=== PATIENT | female | born 1960 | race Caucasian/White ===

== ENCOUNTER 2020-05-18 17:02 | Emergency (ER) | payer OTHER, SELFPAY ==
[2020-05-18 17:03] VITALS: BP 168/134; PULSE 67; RESP 15; TEMP 36.7; O2SAT 97; BMI 38.5
--- NOTE | 2020-05-18 17:22 | EKG12_ITS ---
Test Reason : CP Blood Pressure : / mmHG Vent. Rate : 058 BPM Atrial Rate : 058 BPM P-R Int : 152 ms QRS Dur : 090 ms QT Int : 422 ms P-R-T Axes : 046 036 003 degrees QTc Int : 414 ms Sinus bradycardia Otherwise normal ECG Confirmed by GÓMEZ ZEE, MARLON ([id number]), senior editor ASHER OLSEN ([id number]) on 05/22/2020 9:35:49 AM Referred By: ARSH Confirmed By:MARLON MAGAÑA MD
[2020-05-18 17:26] VITALS: O2SAT 98
[2020-05-18] MEDS: Aspirin 81 MG TAB.CHEW 243 MG PO (17:32)
--- NOTE | 2020-05-18 17:39 | RAD_ITS ---
STUDY: X-RAY CHEST REASON FOR EXAM: Female, 59 years old. chest pain TECHNIQUE: AP COMPARISON: 06/18/2014 FINDINGS: EKG leads project over the chest. The lungs are clear and expanded. There is no demonstrated pleural abnormality. Normal size heart. Normal mediastinum and juan [place]. Normal visualized pulmonary arteries. Normal visualized aortic arch and descending thoracic aorta. Normal visualized thoracic spine. Normal visualized ribs, clavicles, and shoulders. There is no demonstrated abnormality of the visualized soft tissue structures of the upper abdomen. RAD/Chest 1 View (Portable) IMPRESSION: Nonacute portable x-ray examination of the chest. Electronically Signed: Mason Haji MD (Brooks) at 18:06 EST , Service support ,
[2020-05-18 17:47] LABS: Absolute Lymphocyte Count 2.49 X10^3/uL (0.83-4.51); Basophil# 0.06 X10^3/uL; Basophil% 0.6 % (0-1); Eosinophils% 1.9 % (0-5); Hematocrit 44.6 % (37-47); Hemoglobin 14.6 g/dL (12.0-15.0); Lymphocyte # 2.49 X10^3/ul (4.0); Lymphocyte % 23.4 % (19-41); Mean Corp Hgb Conc 32.7 g/dL (32-36); Mean Corpuscular Volume 91.6 fL (81-99); Mean Platelet Vol. 11.8 fl (6.2-12.0); Monocyte# 0.87 X10^3/uL; Monocyte% 8.2 % (0-10); NRBC Flagged by Analyzer 0 % (0-5); Neutrophil # 6.97 X10^3/uL (2.7-7.7); Neutrophil % 65.3 % (47-70); Platelet Count 270 K/mm3 (150-450); RBC Distribution Width CV 14.6 % (11.6-14.6); RBC Distribution Width SD 48.9 fl (35.1-43.9); Red Blood Count 4.87 M/mm3 (4.2-5.4); White Blood Count 10.7 K/mm3 (4.4-11.0)
[2020-05-18 17:52] VITALS: BP 157/75; PULSE 56; RESP 17; O2SAT 97
--- NOTE | 2020-05-18 18:15 | ED.DCSUM_ITS ---
History of Present Illness Chief Complaint: Chest Pain Informant: Patient Onset: Today Current Severity: Moderate Maximum Severity: Severe Narrative: Patient presents secondary to chest pain. Patient states that she and her recently moved in with her daughter. She heard her and daughter arguing in the basement she went down to see what was going on. He continued to argue and she became upset. She then developed chest pain and difficulty breathing. Patient has been off work recently secondary to elevated blood pressure with multiple medication adjustments to try to get better control. Patient does have cardiac history and has 2 cardiac stents. - Past Medical History (1) Anxiety disorder Status: Chronic (2) Benign essential hypertension Status: Chronic (3) CAD, History of stents Status: Chronic Comment: LAD stent (4) Depressive disorder Status: Chronic (5) Hyperlipidemia Status: Chronic (6) Type 2 diabetes mellitus Status: Chronic Past Medical History - Allergies and Home Meds Allergies/Adverse Reactions: Allergies codeine phosphate [From Tylenol-Codeine #3] Allergy (Verified 05/18/20 17:06) Other Penicillins Allergy (Verified 05/18/20 17:06) Hives oxycodone HCl [From Percocet] Adverse Reaction (Verified 05/18/20 17:06) Upset Stomach Primary Care Physician: Jan Wang MD [Primary Care Provider] - Prior records reviewed: Yes Surgical History: angioplasty Lives: With Family Smoking Status: Current some day smoker - Family History Maternal Family History: Reports: Heart Disease Review of Systems General: Denies: Chills, Fever Eyes: Denies: Visual changes - bilaterally ENT: Denies: Bilateral ear pain Cardiovascular: Reports: Chest pain Respiratory: Reports: Dyspnea Gastrointestinal: Denies: Abdominal pain, Nausea, Vomiting, Diarrhea Genitourinary: Denies: Dysuria Musculoskeletal: Denies: Swelling, Extremity Pain Skin: Denies: Rash Neurological: Denies: Headache Hematologic: Denies: Easy bruising, Easy bleeding Allergy: Denies: Uticaria Physical Exam Vital Signs/Narrative: Vital Signs Temp Pulse Resp BP Pulse Ox 05/18/20 17:52 56 L 17 157/75 H 97 05/18/20 17:26 98 05/18/20 17:03 98.1 F 67 15 168/134 H 97 Inital Vital Signs reviewed: Yes General: Well nourished, Well developed Head: Normocephalic ENT: Moist mucous membranes Neck: Supple Cardiovascular: Regular rate, Regular rhythm Respiratory: No distress, CTA bilaterally, Chest tenderness - Reproducible chest wall tenderness over the lower sternum. Abdomen: Soft, Nontender Back: Nontender Extremities: Nontender Skin: Normal color, No rash Neurological: Alert, Oriented x3 Psychological: - - Anxious Diagnostic/Tx/Re-eval Chest X-Ray - ED: 1 View, Read by ED Physician, Normal, Heart, Lungs, Mediastinum Impressions Chest X-Ray 05/18/20 17:39 IMPRESSION: Nonacute portable x-ray examination of the chest. Electronically Signed: Mason Haji MD (Brooks) at 18:06 EST , Service support , 05/18/20 17:39 Chest 1 View (Portable) [RAD] Stat Laboratory Results 05/18/20 05/18/20 05/18/20 17:35 17:35 20:00 WBC 10.7 RBC 4.87 Hgb 14.6 Hct 44.6 MCV 91.6 MCH 30.0 MCHC 32.7 RDW Std Deviation 48.9 H RDW Coeff of Norma 14.6 Plt Count 270 MPV 11.8 Immature Gran % (Auto) 0.600 Neut % (Auto) 65.3 Lymph % (Auto) 23.4 [place] % (Auto) 8.2 Eos % (Auto) 1.9 Baso % (Auto) 0.6 Absolute Neuts (auto) 7.0 Absolute Lymphs (auto) 2.49 Nucleated RBC % 0 Sodium 137 Potassium 4.9 Chloride 101 Carbon Dioxide 28.0 Anion Gap 8 BUN 17 Creatinine 0.72 Estim Creat Clear Calc 71.31 Est GFR (MDRD) Af Amer 108 Est GFR (MDRD) Non-Af 89 BUN/Creatinine Ratio 23.7 H Glucose 279 H Calcium 9.1 Troponin I < 0.015 < 0.015 - EKG Initial EKG Interpretation: Sinus Bradycardia - Sinus bradycardia 58 bpm. No acute ischemia. Follow-up EKG Interpretation: Sinus Bradycardia - Sinus bradycardia [address] change. - Medical Decision Making Patient was given aspirin on arrival. She takes baby aspirin daily and will therefore was given 243 mg. Chest x-ray is unremarkable per my interpretation. EKG reveals no acute ischemia. Blood work is unremarkable including troponin of less than 0.015. On repeat evaluation patient is resting comfortably. Because of the patient's significant cardiac history we did choose to do a repeat troponin and EKG. This was performed and also remains negative. At this time patient be discharged home. ED Disposition - Plan for ED Patient: Disposition: Home or Assisted Living Diagnosis: Chest pain, Anxiety Instructions: ED Anxiety Reaction, ED Chest Pain, Noncardiac Referrals: Jan Wang MD [Primary Care Provider] - As Needed
[2020-05-18 18:17] LABS: Anion Gap 8 (5-15); BUN 17 mg/dL (7-18); BUN/Creat Ratio 23.7 RATIO (10-20); Calcium,Total 9.1 mg/dL (8.5-10.1); Chloride 101 mmol/L (98-107); Creatinine, Serum 0.72 mg/dL (0.55-1.02); EST Glomerular Filtration Rate 89 mL/min (>60); Est Glom Filt Rate - Afr Amer 108 mL/min (>60); Estimated Creatinine Clearance 71.31 ml/min; Glucose 279 mg/dL (74-106); Potassium 4.9 mmol/L (3.5-5.1); Sodium Level 137 mmol/L (136-145)
[2020-05-18 19:47] VITALS: BP 167/84; PULSE 56; RESP 16; O2SAT 98
--- NOTE | 2020-05-18 20:00 | EKG12_ITS ---
Test Reason : REPEAT Blood Pressure : / mmHG Vent. Rate : 056 BPM Atrial Rate : 056 BPM P-R Int : 142 ms QRS Dur : 088 ms QT Int : 446 ms P-R-T Axes : 051 054 006 degrees QTc Int : 430 ms Sinus bradycardia Nonspecific T wave abnormality Abnormal ECG Confirmed by GÓMEZ ZEE, MARLON ([id number]), index editor ASHER OLSEN ([id number]) on 05/22/2020 9:35:37 AM Referred By: ARSH Confirmed By:MARLON MAGAÑA MD
[2020-05-18 21:03] VITALS: BP 140/63; PULSE 62; RESP 16; O2SAT 96
== END 2020-05-18 21:07 | disposition home or self-care (01) ==
PROVIDERS: Emergency Provider Emergency Medicine; PCP Family Medicine
DX: R07.9 Chest pain, unspecified (principal); F41.9 Anxiety disorder, unspecified; E11.9 Type 2 diabetes mellitus without complications; E78.5 Hyperlipidemia, unspecified; I10 Essential (primary) hypertension; I25.10 Atherosclerotic heart disease of native coronary artery without angina pectoris; F32.9 Major depressive disorder, single episode, unspecified; Z95.5 Presence of coronary angioplasty implant and graft; Z79.82 Long term (current) use of aspirin; Z79.84 Long term (current) use of oral hypoglycemic drugs; Z79.899 Other long term (current) drug therapy; F17.200 Nicotine dependence, unspecified, uncomplicated
CPT/HCPCS: 71045; 80048; 84484; 85025; 93005; 99285; A4216

== ENCOUNTER 2020-08-20 16:14 | Emergency (ER) | payer OTHER, SELFPAY ==
[2020-08-20 16:15] VITALS: BP 149/74; PULSE 68; RESP 18; TEMP 36.1; O2SAT 98; BMI 41.6
--- NOTE | 2020-08-20 16:29 | EKG12_ITS ---
Test Reason : CHEST DISCOMFORT Blood Pressure : / mmHG Vent. Rate : 064 BPM Atrial Rate : 064 BPM P-R Int : 156 ms QRS Dur : 092 ms QT Int : 424 ms P-R-T Axes : 058 042 006 degrees QTc Int : 437 ms Normal sinus rhythm Normal ECG Confirmed by GÓMEZ ZEE, MARLON ([id number]), general expeditor ASHER OLSEN ([id number]) on 08/22/2020 10:06:45 AM Referred By: ANNE Confirmed By:MARLON MAGAÑA MD
--- NOTE | 2020-08-20 16:35 | EX.ED.VIS.PS ---
HPI HPI - Psych History of Present Illness Chief Complaint: Anxiety Informant: patient Narrative Narrative: Patient says that she has a lot of anxiety and had a panic attack today. Her daughter is in the course of being evicted from their house and was giving her a lot of stress. She became anxious and had to leave the house. She states that she was having lightheadedness, chest discomfort. Now that she is here she is feeling better. She does have a history of anxiety and is on multiple medications for this. She denies any suicidal ideation. PFSH PFSH Home Medications nitroglycerin 0.4 mg SUBLINGUAL Q5M PRN 01/25/13 [History Last Taken Unknown] aspirin 81 mg PO DAILY@0800 #90 tablet 06/18/14 [Rx Last Taken Unknown] atenolol 25 mg PO DAILY #30 tablet 06/18/14 [Rx Last Taken Unknown] citalopram 1.5 tab PO DAILY 06/18/14 [History Last Taken Unknown] lisinopril 5 mg PO DAILY #30 tablet 06/18/14 [Rx Last Taken Unknown] lorazepam 1 mg PO BID PRN PRN 06/18/14 [History Last Taken Unknown] metformin 1,000 mg PO BIDCM #60 tablet 06/18/14 [Rx Last Taken Unknown] multivitamin with folic acid [Thera] 1 tab PO DAILY 06/18/14 [History Last Taken Unknown] simvastatin 40 mg PO QHS #30 tablet 06/18/14 [Rx Last Taken Unknown] Allergy/AdvReac Type Severity Reaction Status Date / Time codeine phosphate Allergy Other Verified 08/20/20 16:15 [From Tylenol-Codeine #3] Penicillins Allergy Hives Verified 08/20/20 16:15 oxycodone HCl [From Percocet] AdvReac Upset Verified 08/20/20 16:15 Stomach Social History Smoking Status: Current some day smoker ROS ROS ED Constitutional Constitutional ED: Denies chills or fever(s) Eyes Eyes: Denies blurry vision, change in vision or diplopia ENT ENT ED: Denies ear pain, rhinorrhea or sore throat Cardiovascular Cardiovascular: Denies chest pain or palpitations Respiratory/Chest Respiratory/Chest: Denies cough, dyspnea or sputum Gastrointestinal Gastrointestinal: Denies abdominal pain, diarrhea, nausea or vomiting Genitourinary Genitourinary ED: Denies dysuria, hematuria or urinary frequency Musculoskeletal Musculoskeletal: Denies back pain or neck pain Integumentary Denies change in pigmentation or rash Neurologic Neurologic: Denies headache(s), numbness or weakness Psychiatric Psychiatric: Reports anxiety Endocrine Endocrinology: Denies polydipsia or polyuria EXAM Physical Exam Const Vital Signs: 08/20/20 16:15 Temperature 96.9 F L Temperature Source Temporal Pulse Rate 68 Respiratory Rate 18 Blood Pressure 149/74 H Blood Pressure Mean 99 Pulse Ox 98 Oxygen Delivery Method Room Air Positive well nourished and well developed General Appearance ED: well developed and NAD HEENT Reports moist mucous membranes normocephalic and atraumatic; Negative for tenderness Eyes PERRL and EOMs intact bilaterally Neck supple and no JVD Chest Wall Chest: Negative for tenderness Resp normal respiratory effort and clear to auscultation bilaterally Effort and Inspection: Negative for respiratory distress Cardio regular rate, regular rhythm and no murmurs Rate: regular rate Rhythm: regular rhythm GI soft to palpation, non-tender and non-distended Palpation: soft Back/Spine no CVA tenderness and no thoracic nor lumbar tenderness Cervical Spine: Negative for cervical spine tenderness Extremity normal to inspection and full ROM General Extremety ED: Negative for tenderness Neuro oriented x3, CN's II-XII intact bilaterally and no sensory deficits noted Sensorium / Orientation: awake and alert Motor Exam: strength 5/5 throughout Psych Psych Narrative: The patient is calm. She is feeling better. She is mildly anxious but is not having any panic symptoms. Skin no rashes or lesions noted MDM MDM MDM Narrative Medical decision making narrative: Patient was given 1 dose of Ativan here. An EKG was performed and it does not show anything acute. Upon reevaluation the patient felt improved. I think this was all anxiety. She will continue her anxiety meds and will follow up with her doctor EKG Initial EKG: Comments: Normal sinus rhythm with rate of 64. No acute ischemia noted. QTc 437, [place] interval 156 Discharge Plan Triage Chief Complaint: Anxiety ED Provider: Christiano Forbes Dx/Rx/DC Orders Clinical Impression: Anxiety disorder Instructions: ED Anxiety Reaction Prescriptions: No Action nitroglycerin 0.4 MG tablet 0.4 mg sublingual Q5M PRN (Reason: Chest Pain) RF: 0 citalopram 40 MG tablet 1.5 tab PO DAILY RF: 0 lorazepam 1 MG tablet 1 mg PO BID PRN PRN (Reason: Anxiety) RF: 0 multivitamin with folic acid [Thera] 1 TABLET tablet 1 tab PO DAILY RF: 0 atenolol 25 MG tablet 25 mg PO DAILY Qty: 30 RF: 0 aspirin 81 MG tablet 81 mg PO DAILY@0800 Qty: 90 RF: 0 metformin 1,000 MG tablet 1,000 mg PO BIDCM Qty: 60 RF: 0 lisinopril 5 MG tablet 5 mg PO DAILY Qty: 30 RF: 0 simvastatin 40 MG tablet 40 mg PO QHS Qty: 30 RF: 0 Primary Care Provider: Jan Wang Referrals: Jan Wang MD [Primary Care Provider] - Disposition Disposition: Home, self care
[2020-08-20] MEDS: LORazepam 1 MG Tablet PO (17:19)
== END 2020-08-20 17:23 | disposition home or self-care (01) ==
PROVIDERS: Emergency Provider Emergency Medicine; PCP Family Medicine
DX: F41.9 Anxiety disorder, unspecified (principal); F17.200 Nicotine dependence, unspecified, uncomplicated
CPT/HCPCS: 93005; 99281; 99283

== ENCOUNTER → 2020-12-13 17:38 | Outpatient (CLI) | payer OTHER, SELFPAY ==
--- NOTE | 2020-12-13 17:48 | MRI_ITS ---
STUDY: MRI BRAIN WITH AND WITHOUT CONTRAST (ATTENTION INTERNAL AUDITORY CANALS - I.A.C.''s) REASON FOR EXAM: Female, 60 years old. ATAXIA, VERTIGO, OCULAR MIGRAINES TECHNIQUE: Standardized multiplanar fat and water weighted pulse sequences were obtained. IV 19cc dotarem was administered for the contrast portion of the examination. COMPARISON: None. FINDINGS: Normal bilateral temporal bones. Normal bilateral internal auditory canals. There is no demonstrated intracanalicular or cisternal vestibular schwannoma (acoustic neuroma). There is no enhancement of the bilateral VIIth or VIIIth cranial nerves. Normal bilateral cochlea, vestibules and semicircular canals. Normal size of the ventricles and extra-axial spaces for the patient''s age. Normal white matter tracts of the supratentorial brain. Normal bilateral basal ganglia. Normal thalami. Normal flow voids within the major intracranial circulation suggesting patency by spin echo criteria. Normal venous enhancement. There is no enhancing intra-axial or extra-axial abnormality. There is no extra-axial fluid accumulation. Empty sella deformity of uncertain significance. Normal, infundibular stalk, optic chiasm and hypothalamus. Normal tectal plate and pineal gland. Normal midbrain, krysta and medulla. Normal cerebellum. Normal basal cisterns. No demonstrated orbital abnormality, within the constraints of a routine brain study. Normal visualized paranasal sinuses. Normal calvarium and skull base. Normal visualized soft tissue structures. Normal visualized upper cervical spine. MRI/Brain W/WO Contrast IMPRESSION: Empty sella deformity of uncertain clinical significance although may be seen with pseudotumor cerebri. Clinical correlation is recommended in this regard. Otherwise normal enhanced and unenhanced MRI of the brain. No evidence for significant periventricular white matter ischemic changes or acute infarct.. No evidence for acoustic or vestibular schwannoma Electronically Signed: Devyn Ashraf MD at 20:34 EDT , Service support ,
[2020-12-13 18:35] LABS: CREATININE FINGERSTICK 0.6 mg/dL (0.55-1.02); EGFR FINGERSTICK > 60.0000 mL/min (>60)
== END ==
LOC: MRI 17:42
PROVIDERS: PCP Family Medicine; Referring Provider Otolaryngology Otolaryngology/Facial Plastic Surgery; Visit Provider Otolaryngology Otolaryngology/Facial Plastic Surgery
DX: R27.0 Ataxia, unspecified (principal)
CPT/HCPCS: 70553; A9575

== ENCOUNTER 2021-03-19 11:13 | Outpatient (CLI) | payer OTHER, SELFPAY ==
[2021-03-19] MEDS: 0.9% Saline Lock 10 ML Syringe IV (11:34)
[2021-03-19 11:36] VITALS: BP 129/55; PULSE 54; RESP 16; TEMP 36.6; O2SAT 97; BMI 37.8
[2021-03-19 12:37] VITALS: BP 108/48; PULSE 52; RESP 16; TEMP 36.5; O2SAT 100
[2021-03-19 13:28] VITALS: BP 131/62; PULSE 56; RESP 16; TEMP 36.8; O2SAT 96
== END 2021-03-19 23:59 | disposition home or self-care (01) ==
LOC: MS3OUT 11:13 → MS3 11:14
PROVIDERS: PCP Family Medicine; Referring Provider Nurse Practitioner Adult Health; Visit Provider Nurse Practitioner Adult Health
DX: Z23 Encounter for immunization (principal); U07.1 COVID-19
CPT/HCPCS: J7050; M0245; Q0245; A4216

== ENCOUNTER 2024-09-25 21:11 | Emergency (ER) | payer OTHER, SELFPAY ==
[2024-09-25 21:12] VITALS: BP 141/73; PULSE 84; RESP 16; TEMP 36.3; O2SAT 100; BMI 37.5
--- NOTE | 2024-09-25 22:33 | ED.RN ---
2229: LEFT BEFORE SEEING A PROVIDER. REGISTRATION NOTIFIED
--- OUTSIDE RECORDS SUMMARY | 2024-09-25 22:38 | XMS RPT_ITS | CCD ---
Author Organization [facility] Care Team Providers Care Deodorizer Operator Name Role Phone JED, PHOBEE Unavailable Unavailable JED, PHOEBE Unavailable Unavailable JED PHOEBE Unavailable Unavailable YARED ADKINSNETH Unavailable Unavailable Emily Wang MD Primary Care Provider [facility], Keti Unavailable Emily Wang MD Primary Care Provider [facility]ow [facility], Keti Unavailable Dubow [facility], Keti Unavailable Emily Wang MD Primary Care Provider Emily Wang MD Primary Care Provider Dubow R[facility], Keti Unavailable Emily Wang Referring Unavailable Emily Wang Primary Care Unavailable Nargis Roldan Attending Unavailable Nargis Roldan Attending Unavailable Emily Wang Primary Care Unavailable TickNargis arteaga Referring Unavailable Dubow [facility], Keti Unavailable EMILY WANG Primary Care Unavailable DOE MORRISSEY Attending Unavailable EMILY WANG Primary Care Unavailable KAREN BUSTOS Attending Unavaila Emily Ford MD Primary Care Provider [facility], Keti Unavailable PROVIDER, UNKNOWN Referring Unavailable EMILY WANG Primary Care Unavailable PROVIDER, UNKNOWN Referring Unavailable EMILY WANG Primary Care Unavailable PROVIDER, UNKNOWN Referring Unavailable EMILY WANG Primary Care Unavailable EMILY WANG Primary Care Unavailable SHIVAM SUGGS Attending Unavailable Aileen Quintanilla APRN.CNP Unavailable Gilbert CONTROLS ENGINEER.FIDEL, Bahman Unavailable Tannhof CONTROLS ENGINEER.FIDEL, Aileen Unavailable Unavail able Tannhof CONTROLS ENGINEER.FIDEL, Aileen Unavailable HAWA PADRON Referring Unavailable ELDERSAULO, EMILY Jacinto Primary Care Unavailable TANNAILEEN BROWNE Attending Unavailabl e ELDERBROCK, EMILY Jacinto Primary Care Unavailable VERÓNICA LUIS Attending Unavailable ELDERBROCK, EMILY Jacinto Primary Care Unavailable ELDERBROCK, EMILY Jacinto Attending Unavailable ELDERBROCK, EMILY D Primary Care Unavailable CAMILA CABRERA Attending Unavailable ELDERBROCK, EMILY Jacinto Primary Care Unavailable ELDERBROCK, EMILY Jacinto Attending Unavailable ELDERBROCK, EMILY D Primary Care Unavailable DOHAWA ALEJANDRA Attending Unavailable ELDERBROCK, EMILY D Primary Care Unavailable SAMRA DICKENS Attending Unavailable ELDERSAULO, EMILY Jacinto Primary Care Unavailable HAWA PADRON Attending Unavailable ABELARDO NASH Referring Unavailabl e ELDERBROCK, EMILY D Primary Care Unavailable TANNHOFAILEEN Attending Unavailabl e ELDERBROCK, EMILY D Primary Care Unavailable ELDERBROCK, EMILY D Primary Care Unavailable TANNHOAILEEN Longoria Attending Unavailabl e ELDERBROCK, EMILY D Primary Care Unavailable VERÓNICA LUIS Referring Unavailable ELDERBROCK, EMILY D Primary Care Unavailable TANNHOAILEEN Longoria Referring Unavailabl e ELDERBROCK, EMILY D Primary Care Unavailable Allergies Allergy Classification Reported Allergen(s) Allergy Type Date of Onset Reaction(s) Facility (20 sources) acetaminophen / oxyCODONE; Translations: [OXYCODONE-ACETAM INOPHEN] Drug Allergy 8 GI Upset [facility] Repository (20 sources) Penicillins; Translations: [PENICILLINS] Propensity to adverse reactions (disorder) 6 Hives [facility] Repository (20 sources) TYLENOL-CODEINE ELIXIR; Translations: [TYLENOL-CODEINE ELIXIR] Propensity to adverse reactions (disorder) 1 Other: See Comments [facility] Repository (1 source) Codeine Drug Allergy 2 [facility] Repository (1 source) oxyCODONE Drug Allergy 2 [facility] Repository Medications Current Medications Medication Drug Class(es) Dates Sig (Normalized) Sig (Original) [id number] 200 actuat albuterol 0.09 mg/actuat metered dose inhaler (20 sources) beta2-Adrenergic Agonist Start: 2 take 2 puff(s) by inhalation every four hours as needed for wheezing albuterol HFA (PROVENTIL HFA, VENTOLIN HFA) 90 mcg/actuation inhaler Indications: Viral URI with cough Inhale 2 Puffs as instructed every 4 hours as needed for wheezing/shortness of breath. 1 Each 1 03/13/2021 Active Comment on above: Inhale 2 Puffs as in structed every 4 hours as needed for wheezing/shortness of breath. aspirin 81 mg chewable tablet (20 sources) Platelet Aggregation Inhibitor, Nonsteroidal Anti-inflammatory Drug take 1 tablet by mouth once daily aspirin 81 mg chewable tablet Take 81 mg by mouth once daily. Active Comment on above: Take 81 mg by mouth once daily. atenolol 100 mg oral tablet (20 sources) beta-Adrenergic Riky Start: 1 End: 5 take 1 tablet by mouth once daily atenolol (TENORMIN) 100 mg tablet Indications: Hypertension, essential Take 1 tablet by mouth once daily. 90 tablet 3 05/18/2024 Active Comment on above: Take 1 tablet by jevon th once daily. atorvastatin 80 mg oral tablet (20 sources) HMG-CoA Reductase Inhibitor Start: 2 End: 5 take 1 tablet by mouth once daily at bedtime for hyperlipidemia atorvastatin (LIPITOR) 80 mg tablet Indications: Pure hypercholesterolemia Take 1 tablet by mouth daily at bedtime for cholesterol. 90 tablet 3 03/09/2024 Active Start: 08-24-2019 End: 12-25-2021 take 1 tablet by mouth once daily at bedtime for hyperlipidemia atorvastatin (LIPITOR) 40 mg tablet Take 1 tablet by mouth daily at bedtime for cholesterol. 90 tablet 3 11/11/2021 12/25/2021 Discontinued Comment on above: Take 1 tablet by jevon th daily at bedtime for cholesterol. azithromycin 250 mg oral tablet (2 sources) Macrolide Antimicrobial Start: 05-14-2022 End: 05-17-2022 azithromycin (ZITHROMAX Z-SHER) 250 mg tablet Take 2 tablets day one, then, 1 tablet daily until gone. 6 tablet 0 05/14/2022 05/17/2022 Active Comment on above: Take 2 tablets day o ne, then, 1 tablet daily until gone. Blood-Glucose Meter (20 sources) Start: 04-25-2021 Blood-Glucose Meter Indications: Diabetes mellitus, non-insulin dependent (NIDDM or type II) ([facility]) Test blood sugar(s) 1 times daily. Dx: Type 2 DM - Uncontrolled E11.65 Insulin: No 1 Each 04/25/2021 Active Start: 04-25-2021 Blood-Glucose Meter Indications: Diabetes mellitus, non- insulin dependent (NIDDM or type II) ([facility]) Test blood sugar(s) 1 times daily. Dx: Type 2 DM - Uncontrolled E11.65 Insulin: No 1 Each 0 04/25/2021 Active Comment on above: Test blood sugar(s) 1 times daily. Dx: Type 2 DM - Uncontrolled E11.65 Insulin: No Blood-Glucose Meter monitoring kit (20 sources) Start: Blood-Glucose Meter monitoring kit Indications: Diabetes mellitus type 2, controlled, without complications ([facility]) Glucose Meter of Choice - Kit - Dx: Type 2 DM - Uncontrolled E11.65 1 Each 0 07/18/2015 Active Comment on above: Glucose Meter of Cho ice - Kit - Dx: Type 2 DM - Uncontrolled E11.65 cholecalciferol 0.125 mg oral tablet (20 sources) Vitamin D Start: 024 End: take 1 tablet by mouth once daily cholecalciferol (VITAMIN D-3) 5,000 unit tab Take 1 tablet by mouth once daily. 90 tablet 3 06/10/2023 Active Comment on above: Take 1 tablet by jevon th once daily. cyclobenzaprine hydrochloride 10 mg oral tablet (20 sources) Muscle Relaxant Start: 023 End: 025 take 1 tablet by mouth three times daily as needed for muscle spasms cyclobenzaprine (FLEXERIL) 10 mg tablet Indications: Sciatica, right side , Myalgia Take 1 tablet by mouth three times a day as needed for muscle spasm. 60 tablet 2 06/12/2024 Active Start: 04-16-2020 End: 01-16-2021 take 1 tablet by mouth three times daily as needed for pain cyclobenzaprine (FLEXERIL) 10 mg tablet Indications: Sciatica, right side Take 1 tablet by mouth three times daily as needed for Muscle Spasm or Pain. 30 tablet 1 04/16/2020 01/16/2021 Discontinued (Discontinued by Patient) Comment on above: Take 1 tablet by jevon th three times daily as needed for muscle spasm. diclofenac sodium 0.01 mg/mg topical gel (20 sources) Nonsteroidal Anti-inflammatory Drug Start: 2020 apply 2 g topically four times daily diclofenac (VOLTAREN) 1 % topical gel Apply 2 g to affected area four times daily. 50 g 1 08/12/2020 Active Comment on above: Apply 2 g to affecte d area four times daily. empagliflozin 25 mg oral tablet (20 sources) Sodium-Glucose Cotransporter 2 Inhibitor Start: 2023 End: 2024 take 1 tablet by mouth once daily in the morning JARDIANCE 25 mg tablet Indications: Poorly controlled diabetes mellitus (HCC) TAKE 1 TABLET BY MOUTH EVERY MORNING 90 tablet 3 08/30/2024 Active Comment on above: Take 1 tablet by jevon th once daily. Take 1 tablet once daily in the morning ezetimibe 10 mg oral tablet (20 sources) Dietary Cholesterol Absorption Inhibitor Start: 2022 take 1 tablet by mouth once daily ezetimibe (ZETIA) 10 mg tablet Take 1 tablet by mouth once daily. 90 tablet 3 10/21/2022 Active Comment on above: Take 1 tablet by jevon th once daily. famotidine 20 mg oral tablet (1 source) Histamine-2 Receptor Antagonist Start: 2021 End: 2021 take 1 tablet by mouth twice daily famotidine (PEPCID) 20 mg tablet Take 1 tablet by mouth twice daily for 14 days. 28 tablet 0 12/24/2021 01/07/2022 Active Comment on above: Take 1 tablet by jevon th twice daily for 14 days. fenofibrate 40 mg oral tablet (20 sources) Peroxisome Proliferator Receptor alpha Agonist Start: 2023 End: 2024 take 1 tablet by mouth once daily Fenofibrate 40 mg tab Indications: Hypertriglyceridemia Take 1 tablet by mouth once daily. 30 tablet 11 12/09/2023 12/08/2024 Active fluconazole 150 mg oral tablet (5 sources) Azole Antifungal Start: 2024 End: 2024 fluconazole (DIFLUCAN) 150 mg tablet Indications: Vaginal itching Take 1 tablet by mouth one time only for 1 dose. Repeat in 3 days as needed. 2 tablet 09/01/2024 09/01/2024 Active Start: 04-11-2024 End: 04-11-2024 fluconazole (DIFLUCAN) 150 m g tablet Take 1 tablet by mouth one time only for 1 dose. Repeat in 3 days if needed 2 tablet 04/11/2024 04/11/2024 Active Start: 11-10-2023 End: 11-15-2023 take 1 tablet by mouth once daily fluconazole (DIFLUCAN) 100 mg tablet Indications: Vaginal yeast infection Take 1 tablet by mouth once daily for 5 days. 5 tablet 11/10/2023 11/15/2023 Active Start: 11-07-2023 End: 11-07-2023 fluconazole (DIFLUCAN) 150 m g tablet Take 1 tablet by mouth one time only for 1 dose. Repeat in 3 days as needed. 2 tablet 11/07/2023 11/07/2023 Active Start: 01-22-2023 End: 01-22-2023 fluconazole (DIFLUCAN) 150 m g tablet Take 1 tablet by mouth one time only for 1 dose. Repeat in 3 days as needed. 2 tablet 0 01/22/2023 01/22/2023 Active Comment on above: Take 1 tablet by [facility] one time only for 1 dose. Repeat in 3 days as needed. gabapentin 300 mg oral capsule (20 sources) Anti-epileptic Agent Start: 03-11-2023 End: 12-23-2024 take 1 capsule by mouth twice daily gabapentin (NEURONTIN) 300 mg capsule Indications: Sciatica, right side , Herpes zoster without complication Take 1 capsule by mouth two times a day for 180 days. 60 capsule 5 06/26/2024 12/23/2024 Active Start: 10-22-2022 End: 01-20-2023 take 1 capsule by mouth twice daily gabapentin (NEURONTIN) 300 mg capsule Indications: Sciatica, right side Take 1 capsule by mouth twice daily for 90 days. 60 capsule 2 10/22/2022 Active Start: 10-05-2022 End: 01-03-2023 take 1 capsule by mouth once daily at bedtime gabapentin (NEURONTIN) 300 mg capsule Indications: Sciatica, right side Take 1 capsule by mouth daily at bedtime for 90 days. 30 capsule 2 10/05/2022 10/22/2022 Discontinued Comment on above: Take 1 capsule by mo uth daily at bedtime for 90 days. Take 1 capsule by mo uth twice daily for 90 days. Take 1 capsule by mo uth two times a day for 180 days. glimepiride 4 mg oral tablet (20 sources) Sulfonylurea Start: 03-19-19 End: 09-07-19 take 1 tablet by mouth twice daily at mealtime glimepiride (AMARYL) 4 mg tablet Indications: Controlled type 2 diabetes mellitus without complication, without long-term current use of insulin (HCC) Take 1 tablet by mouth two times a day with meals. 180 tablet 3 09/06/2024 Active Comment on above: Take 1 tablet by jevon twice daily with meals. hydrOXYzine hydrochloride 25 mg oral tablet (20 sources) Antihistamine Start: 02-28-20 End: 09-25-19 take 1 tablet by mouth every six hours as needed for anxiety hydrOXYzine HCl (ATARAX) 25 mg tablet Indications: Herpes zoster without complication Take 1 tablet by mouth every 6 hours as needed for anxiety. 90 tablet 2 06/26/2024 09/24/2024 Active Comment on above: Take 1 tablet by jevon every 6 hours as needed for anxiety. lisinopril 20 mg oral tablet (20 sources) Angiotensin Converting Enzyme Inhibitor Start: 12-26-19 End: 05-19-19 take 1 tablet by mouth twice daily lisinopril (ZESTRIL) 20 mg tablet Indications: Hypertension, essential Take 1 tablet by mouth two times a day. 60 tablet 11 05/18/2024 Active Start: 04-08-2020 End: 12-25-2021 take 1 tablet by mouth twice daily lisinopril (ZESTRIL, PRINIVIL) 10 mg tablet Indications: Hypertension, essential Take 1 tablet by mouth twice daily. 180 tablet 3 11/11/2021 12/25/2021 Discontinued Comment on above: Take 1 tablet by jevon th twice daily. Take 1 tablet by jevon th two times a day. LORazepam 0.5 mg oral tablet (20 sources) Benzodiazepine Start: End: take 2 tablets by mouth twice daily LORazepam (ATIVAN) 0.5 mg Indications: Anxiety Take 2 tablets by mouth two times a day for 30 days. 120 tablet 09/11/2024 10/11/2024 Active Start: 01-24-2024 End: 09-07-2024 take 2 tablets by mouth twice daily LORazepam (ATIVAN) 0.5 mg Indications: Anxiety Take 2 tablets by mouth two times a day for 30 days. 120 tablet 06/12/2024 09/07/2024 Discontinued Start: 03-23-2023 End: 01-21-2024 take 2 tablets by mouth twice daily LORazepam (ATIVAN) 0.5 mg Indications: Anxiety Take 2 tablets by mouth two times a day for 90 days. 120 tablet 2 09/16/2023 01/21/2024 Discontinued Start: 06-23-2021 End: 02-11-2023 take 2 tablets by mouth twice daily LORazepam (ATIVAN) 0.5 mg Indications: Anxiety Take 2 tablets by mouth twice daily for 90 days. 120 tablet 2 11/13/2022 02/11/2023 Active Start: 02-26-2021 End: 03-24-2021 take 2 tablets by mouth twice daily LORazepam (ATIVAN) 0.5 mg Indications: Anxiety Take 2 tablets by mouth twice daily for 90 days. 120 tablet 2 02/26/2021 03/24/2021 Discontinued Start: 06-28-2020 End: 11-05-2020 take 2 tablets by mouth twice daily LORazepam (ATIVAN) 0.5 mg Indications: Anxiety Take 2 tablets by mouth twice daily for 90 days. 120 tablet 2 06/28/2020 11/05/2020 Discontinued Comment on above: Take 2 tablets by [facility] twice daily for 90 days. Do not start before June 23, 2021. Take 2 tablets by mo [facility] twice daily for 90 days. Take 2 tablets by mo [facility] two times a day for 90 days. meclizine hydrochloride 25 mg oral tablet (20 sources) Antiemetic Start: End: take 1 tablet by mouth three times daily as needed meclizine (ANTIVERT) 25 mg tab Indications: Vertigo Take 1 tablet by mouth three times a day as needed. 15 tablet 03/20/2024 Active Comment on above: Take 1 tablet by jevon th three times daily as needed. metFORMIN hydrochloride 500 mg oral tablet (20 sources) Biguanide Start: metFORMIN (GLUCOPHAGE) 500 mg tablet Indications: type 2 diabetes mellitus Take 2 tabs with breakfast, 2 tabs with dinner 360 tablet 3 09/06/2024 Active Start: 04-24-2021 End: 09-15-2024 take 1 tablet by mouth twice daily at mealtime metFORMIN (GLUCOPHAGE) 500 mg tablet Indications: type 2 diabetes mellitus Take 1 tablet by mouth two times a day with meals. 180 tablet 3 09/16/2023 09/06/2024 Discontinued Comment on above: Take 1 tablet by jevon th twice daily with meals. methylPREDNISolone (2 sources) Corticosteroid Start : 07-06 End: 07-12 methylPREDNISolone (MEDROL, SHER,) 4 mg Dose-Pack Indications: Herpes zoster without complication , Itching Take as instructed per package. 21 tablet 07/06/2024 07/12/2024 Active MOUNJARO 15 mg/0.5 mL pen injector (4 sources) Start : 08-30 inject 15 mg by subcutaneous injection every week MOUNJARO 15 mg/0.5 mL pen injector Inject 15 mg subcutaneously one time a week. 6 mL 3 08/30/2024 Active multivitamins(DAILY MULTIVITAMIN TAB) (20 sources) Start : 09-11 take 1 tablet by mouth once daily multivitamins(DAILY MULTIVITAMIN TAB) Take 1 tablet by mouth once daily. 0 09/11/2008 Active Start: 09-11-2008 multivitamins( DAILY MULTIVITAMIN TAB) Take one(1) tablet daily. 0 09/11/2008 Active Comment on above: Take one(1) tablet d aily. nirmatrelvir tablet 300 mg (150 mg x 2) and ritonavir tablet 100 mg in a dose pack (PAXLOVID) (1 source) Start: 10-06-2022 End: 10-11-2022 nirmatrelvir tablet 300 mg (150 mg x 2) and ritonavir tablet 100 mg in a dose pack (PAXLOVID) Administer TWO pink nirmatrelvir 150 mg tablets and ONE white ritonavir 100 mg tablet for a total of three tablets twice daily. 30 tablet 0 10/06/2022 10/11/2022 Active Comment on above: Administer TWO pink nirmatrelvir 150 mg tablets and ONE white ritonavir 100 mg tablet for a total of three tablets twice daily. nitroglycerin 0.4 mg sublingual tablet (20 sources) Nitrate Vasodilator Start: 03-11-2023 nitroglycerin sublingual (NITROQUICK) 0.4 mg SL tablet Indications: Atherosclerosis of [place] coronary artery of [place] heart without angina pectoris Dissolve 1 tablet under the tongue as needed. FOR CHEST PAIN. IF NO RELIEF CALL 911 25 tablet 3 03/11/2023 Active Start: 12-02-2018 End: 03-24-2021 nitroglycerin sublingual (NI TROQUICK) 0.4 mg SL tablet Indications: Atherosclerosis of [place] coronary artery of [place] heart without angina pectoris Dissolve 1 tablet under the tongue as needed. FOR CHEST PAIN. IF NO RELIEF CALL 911 25 tablet 3 03/25/2021 Active Comment on above: Dissolve 1 tablet un bennett the tongue as needed. FOR CHEST PAIN. IF NO RELIEF CALL 911 ondansetron 4 mg oral tablet (20 sources) Serotonin-3 Receptor Antagonist Start: End: take 1 tablet by mouth every eight hours as needed for nausea and nausea ondansetron (ZOFRAN) 4 mg tablet Indications: Nausea Take 1 tablet by mouth every 8 hours as needed for nausea/vomiting for up to 10 days. 30 tablet 0 06/10/2023 06/20/2023 Active Start: 04-26-2023 End: 06-12-2024 take 1 tablet by mouth every six hours as needed for nausea ondansetron orally disintegrating (ZOFRAN ODT) 4 mg disintegrating tablet Indications: Viral syndrome Take 1 tablet by mouth every 6 hours as needed for nausea/vomiting. 10 tablet 04/26/2023 06/12/2024 Discontinued (Course of therapy completed) Start: 06-28-2020 End: 10-30-2021 take 1 tablet by mouth every six hours as needed for nausea and nausea ondansetron orally disintegrating (ZOFRAN ODT) 4 mg disintegrating tablet Indications: Nausea Take 1 tablet by mouth every 6 hours as needed. 20 tablet 06/28/2020 10/30/2021 Discontinued Comment on above: Take 1 tablet by jevon th every 6 hours as needed. Take 1 tablet by jevon th every 6 hours as needed for nausea/vomiting. Take 1 tablet by jevon th every 8 hours as needed for nausea/vomiting for up to 10 days. pantoprazole 40 mg delayed release oral tablet (20 sources) Proton Pump Inhibitor Start: End: take 1 tablet by mouth once daily before breakfast pantoprazole DR (PROTONIX) 40 mg tablet Indications: GERD without esophagitis Take 1 tablet by mouth daily before breakfast. Take on empty stomach, 1/2 hr before meal. 30 tablet 5 05/18/2024 05/18/2025 Active Start: 09-16-2022 End: 10-16-2022 take 1 tablet by mouth once daily before breakfast pantoprazole DR (PROTONIX) 40 mg tablet Indications: GERD without esophagitis Take 1 tablet by mouth daily before breakfast. Take on empty stomach, 1/2 hr before meal. 30 tablet 5 09/16/2022 Active Start: 06-28-2020 End: 10-30-2021 take 1 tablet by mouth once daily before breakfast pantoprazole DR (PROTONIX) 40 mg tablet Indications: Nausea Take 1 tablet by mouth daily before breakfast. Take on empty stomach, 1/2 hr before meal. 30 tablet 5 06/28/2020 10/30/2021 Discontinued Comment on above: Take 1 tablet by jevon th daily before breakfast. Take on empty stomach, 1/2 hr before meal. PARoxetine hydrochloride 40 mg oral tablet (20 sources) Serotonin Reuptake Inhibitor Start: End: take 1 tablet by mouth once daily PARoxetine (PAXIL) 10 mg tablet Indications: Anxiety with depression Take 1 tablet by mouth once daily. Take along with Paxil 40 mg tablet 30 tablet 5 05/18/2024 11/14/2024 Active Start: 06-19-2022 End: 11-14-2024 take 1 tablet by mouth once daily PARoxetine (PAXIL) 40 mg tablet Indications: Anxiety , Moderate episode of recurrent major depressive disorder (HCC) Take 1 tablet by mouth once daily. 30 tablet 5 05/18/2024 11/14/2024 Active Comment on above: Take 1 tablet by jevon th once daily. promethazine hydrochloride 25 mg oral tablet (20 sources) Phenothiazine Start: 021 End: take 1 tablet by mouth every six hours as needed for nausea and nausea promethazine (PHENERGAN) 25 mg tablet Indications: Nausea Take 1 tablet by mouth every 6 hours as needed for nausea/vomiting. 8 tablet 08/25/2022 Active Comment on above: Take 1 tablet by jevon th every 6 hours as needed for nausea/vomiting. tirzepatide (MOUNJARO) 15 mg/0.5 mL pen injector (20 sources) Start: 024 End: 025 inject 15 mg by subcutaneous injection every week tirzepatide (MOUNJARO) 15 mg/0.5 mL pen injector Inject 15 mg subcutaneously one time a week. 12 Each 3 08/11/2023 08/30/2024 Discontinued Start: 08-11-2023 inject 15 mg by subc utaneous injection every week tirzepatide (MOUNJARO) 15 mg/0.5 mL pen injector Inject 15 mg subcutaneously one time a week. 12 Each 3 08/11/2023 Active valACYclovir 1000 mg oral tablet (2 sources) Herpesvirus Nucleoside Analog DNA Polymerase Inhibitor, Herpes Simplex Virus Nucleoside Analog DNA Polymerase Inhibitor, Herpes Zoster Virus Nucleoside Analog DNA Polymerase Inhibitor Start: 06-26-2024 End: 07-03-2024 take 1 tablet by mouth three times daily valACYclovir (VALTREX) 1 gram tablet Indications: Herpes zoster without complication Take 1 tablet by mouth three times a day for 7 days. 21 tablet 06/26/2024 07/03/2024 Active vitamin b12 1 mg extended release oral tablet (20 sources) Vitamin B12 Start: 05-03-2024 End: 09-06-2024 take 1 tablet by mouth once daily Cyanocobalamin (VITAMIN B-12) 1,000 mcg TbER Indications: Controlled type 2 diabetes mellitus without complication, without long-term current use of insulin (HCC) Take 1 tablet by mouth once daily. 90 tablet 3 09/06/2024 Active Start: 05-12-2023 End: 09-06-2024 take 1 tablet by mouth once daily cyanocobalamin (VITAMIN B-12) 1,000 mcg tab Take 1 tablet by mouth once daily. 90 tablet 3 06/10/2023 09/06/2024 Discontinued Comment on above: Take 1 tablet by jevon th once daily. Completed/Discontinued Medications Medication Drug Class(es) Dates Sig (Normalized) Sig (Original) amLODIPine 5 mg oral tablet (20 sources) Dihydropyridine Calcium Channel Riky Start: 05-16-2020 End: 08-25-2022 take 1 tablet by mouth once daily amLODIPine (NORVASC) 5 mg tablet Take 1 tablet by mouth once daily. 30 tablet 11 05/16/2020 08/25/2022 Discontinued Comment on above: Take 1 tablet by jevon th once daily. benzonatate 100 mg oral capsule (2 sources) Non-narcotic Antitussive Start: 03-13-2021 End: 07-02-2021 take 100-200 mg by mouth every eight hours as needed benzonatate (TESSALON PERLES) 100 mg capsule Take 1-2 capsules by mouth three times daily as needed. 30 capsule 0 03/13/2021 07/02/2021 Discontinued (Course of therapy completed) Comment on above: Take 1-2 capsules by mouth three times daily as needed. Blood-Glucose Sensor (DEXCOM G7 SENSOR) john (20 sources) Start: 05-12-2023 End: 09-06-2024 Blood-Glucose Sensor (DEXCOM G7 SENSOR) john CHANGE SENSOR EVERY 10 days USE FOR CONTINUOUS GLUCOSE MONITORING. E11.9 9 Each 3 05/12/2023 09/06/2024 Discontinued (Other) Start: 05-12-2023 Blood-Glucose Sensor (DEXCOM G7 SENSOR) john CHANGE SENSOR EVERY 10 days USE FOR CONTINUOUS GLUCOSE MONITORING. E11.9 9 Each 3 05/12/2023 Active Comment on above: CHANGE SENSOR EVERY 10 days USE FOR CONTINUOUS GLUCOSE MONITORING. E11.9 busPIRone hydrochloride 15 mg oral tablet (20 sources) Start: End: take 1 tablet by mouth three times daily busPIRone (BUSPAR) 15 mg tablet Take 1 tablet by mouth three times daily. 90 tablet 5 02/12/2022 09/06/2024 Discontinued Start: 06-28-2020 End: 10-30-2021 take 1 tablet by mouth three times daily busPIRone (BUSPAR) 10 mg tablet Indications: Anxiety Take 1 tablet by mouth three times daily. 90 tablet 5 04/15/2021 10/30/2021 Discontinued Comment on above: Take 1 tablet by jevon th three times daily. citalopram 40 mg oral tablet (20 sources) Serotonin Reuptake Inhibitor Start: 03-25-19 End: 06-20-19 citalopram (CELEXA) 40 mg tablet Indications: Anxiety take 1 & 1/2 tablets once a day 135 tablet 3 11/11/2021 06/19/2022 Discontinued Comment on above: take 1 & 1/2 tablets once a day 0.5 ml dulaglutide 3 mg/ml auto-injector (20 sources) GLP-1 Receptor Agonist Start: 07-03-19 End: 05-20-19 inject 1.5 mg by subcutaneous injection every week dulaglutide (TRULICITY) 1.5 mg/0.5 mL pen injector Indications: Diabetes mellitus, non-insulin dependent (NIDDM or type II) (HCC) Inject 1.5 mg subcutaneously one time a week. 2 mL 5 11/24/2021 05/19/2022 Discontinued Start: 04-24-2021 End: 07-23-2021 inject 0.75 mg by subcutaneous injection every week dulaglutide (TRULICITY) 0.75 mg/0.5 mL pen injector Indications: Uncontrolled type 2 diabetes mellitus with hyperglycemia (HCC) Inject 0.75 mg subcutaneously one time a week. 2 mL 2 04/24/2021 07/02/2021 Discontinued (Dosage adjustment) Comment on above: Inject 0.75 mg subcu taneously one time a week. Inject 1.5 mg subcut aneously one time a week. dulaglutide (TRULICITY) 3 mg/0.5 mL pen injector (15 sources) Start: 023 End: 023 inject 3 mg by subcutaneous injection every week dulaglutide (TRULICITY) 3 mg/0.5 mL pen injector Indications: Diabetes mellitus, non-insulin dependent (NIDDM or type II) (HCC) Inject 3 mg subcutaneously one time a week. 4 Each 4 05/19/2022 12/04/2022 Discontinued Start: 05-19-2022 inject 3 mg by subcu taneous injection every week dulaglutide (TRULICITY) 3 mg/0.5 mL pen injector Indications: Diabetes mellitus, non-insulin dependent (NIDDM or type II) ([facility]) Inject 3 mg subcutaneously one time a week. 4 Each 4 05/19/2022 Active Comment on above: Inject 3 mg subcutan eously one time a week. dulaglutide (TRULICITY) 4.5 mg/0.5 mL pen injector (17 sources) Start: End: inject 4.5 mg by subcutaneous injection every week dulaglutide (TRULICITY) 4.5 mg/0.5 mL pen injector Indications: Controlled type 2 diabetes mellitus without complication, without long-term current use of insulin ([facility]) Inject 4.5 mg subcutaneously one time a week. 2 mL 12/04/2022 05/12/2023 Discontinued Start: 12-04-2022 End: 12-04-2023 inject 4.5 mg by subcutaneous injection every week dulaglutide (TRULICITY) 4.5 mg/0.5 mL pen injector Indications: Controlled type 2 diabetes mellitus without complication, without long-term current use of insulin ([facility]) Inject 4.5 mg subcutaneously one time a week. 2 mL 12/04/2022 12/04/2023 Active Comment on above: Inject 4.5 mg subcut aneously one time a week. esomeprazole 20 mg delayed release oral capsule (20 sources) Proton Pump Inhibitor End: take 1 capsule by mouth once daily in the morning esomeprazole (NEXIUM) 20 mg capsule Take 20 mg by mouth daily at 6 am. 06/12/2024 Discontinued (Course of therapy completed) Comment on above: Take 20 mg by mouth once daily. Take 20 mg by mouth daily at 6 am. 1 ml evolocumab 140 mg/ml auto-injector (18 sources) PCSK9 Inhibitor Start: 025 End: 026 inject 140 mg by subcutaneous injection every other week evolocumab (REPATHA SURECLICK) 140 mg/mL pen injector Inject 140 mg subcutaneously every 2 weeks. 2 mL 04/24/2024 09/06/2024 Discontinued ibuprofen 800 mg oral tablet (2 sources) Nonsteroidal Anti-inflammatory Drug Start: 06-07-2 021 End: 022 take 1 tablet by mouth every eight hours as needed ibuprofen (MOTRIN) 800 mg tablet Take 1 tablet by mouth every 8 hours as needed for pain. Take with food. 90 tablet 09/05/2020 04/20/2021 Discontinued magnesium oxide 400 mg oral tablet (20 sources) Start: 024 End: 025 take 1 tablet by mouth twice daily magnesium oxide (MAG-OX) 400 mg (241.3 mg magnesium) tablet Indications: hypomagnesemia Take 1 tablet by mouth two times a day. 60 tablet 5 03/11/2023 07/06/2024 Discontinued Start: 05-27-2021 End: 08-25-2022 take 1 tablet by mouth twice daily magnesium oxide (MAG-OX) 400 mg (241.3 mg magnesium) tablet Indications: hypomagnesemia Take 1 tablet by mouth twice daily. 60 tablet 5 08/25/2022 Active Comment on above: Take 1 tablet by jevon twice daily. Take 1 tablet by jevon two times a day. predniSONE 10 mg oral tablet (1 source) Start: 02-25-2021 End: 02-28-2021 take 4 tablets by mouth once daily predniSONE (DELTASONE) 10 mg tablet Take 4 tablets by mouth once daily for 3 days. 12 tablet 02/25/2021 02/28/2021 regadenoson 0.4 mg injection (LEXISCAN) (5 sources) Start: 12-23-2023 End: 12-23-2023 regadenoson 0.4 mg injection (LEXISCAN) Start: 12-23-2023 End: 12-23-2023 0.4 mg, INTRAVENOUS, ONCE, 1 dose, On Sravanthi 12/23/23 at 1530, Give 0.4 mg (5 mL) over ~10 seconds, followed immediately by a 5 mL saline flush. Wait 10-20 seconds, then administer the radionuclide myocardial perfusion imaging agent. Start: 12-23-2023 End: 12-24-2023 regadenoson 0.4 mg injection (LEXISCAN) Start: 01-23-2022 End: 01-23-2022 regadenoson 0.4 mg injection (LEXISCAN) tirzepatide (MOUNJARO) 12.5 mg/0.5 mL pen injector (12 sources) Start: 05-12-2023 End: 08-11-2023 inject 12.5 mg by subcutaneous injection every week tirzepatide (MOUNJARO) 12.5 mg/0.5 mL pen injector Indications: Poorly controlled type 2 diabetes mellitus (HCC) Inject 12.5 mg subcutaneously one time a week. 12 Each 3 05/12/2023 08/11/2023 Discontinued Start: 05-12-2023 inject 12.5 mg by hutchison bcutaneous injection every week tirzepatide (MOUNJARO) 12.5 mg/0.5 mL pen injector Indications: Poorly controlled type 2 diabetes mellitus (HCC) Inject 12.5 mg subcutaneously one time a week. 12 Each 3 05/12/2023 Active Comment on above: Inject 12.5 mg subcu taneously one time a week. Problems Active Problems Problem Classification Problem Date Documented Date Episodic/Chronic Abdominal pain (2 sources) Abdominal pain; Translations: [Unspecified abdominal pain] 09-17-2022 Episodic Acute cerebrovascular disease (20 sources) Ischemic stroke; Translations: [Cerebral infarction, unspecified] Onset: 04-18-2021 04-19-2021 Chronic Anxiety disorders (20 sources) Anxiety; Translations: [Anxiety disorder, unspecified] Onset: 04-19-2021 04-19-2021 Chronic Aortic; peripheral; and visceral artery aneurysms (2 sources) Ascending aorta dilatation; Translations: [Thoracic aortic ectasia] 04-24-2024 Chronic Attention-deficit, conduct, and disruptive behavior disorders (20 sources) Aggressive unsocial conduct disorder; 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, childhood-onset type] Onset: 08-10-2007 02-23-2008 Chronic Coronary atherosclerosis and other heart disease (20 sources) Coronary atherosclerosis; Translations: [Atherosclerotic heart disease of [place] coronary artery without angina pectoris] Onset: 09-17-2008 03-19-2020 Chronic Diabetes mellitus with complications (20 sources) Hyperglycemia due to diabetes mellitus; Translations: [Type 2 diabetes mellitus with hyperglycemia] Onset: 04-20-2021 04-20-2021 Chronic Diabetes mellitus without complication (20 sources) Type 2 diabetes mellitus; Translations: [Type 2 diabetes mellitus without complications] Onset: 07-27-2007 04-20-2021 Chronic Diabetes mellitus without complication (1 source) Hyperglycemia, unspecified; Translations: [Hyperglycemia] Onset: 04-12-2023 Episodic Diseases of mouth; excluding dental (1 source) Xerostomia; Translations: [Dry mouth, unspecified] 06-12-2024 Episodic Diseases of white blood cells (20 sources) Leukocytosis; Translations: [Elevated white blood cell count, unspecified] Onset: 03-18-2020 03-19-2020 Chronic Disorders of lipid metabolism (20 sources) Pure hypercholesterolemia; Translations: [Pure hypercholesterolemia, unspecified] Onset: 02-15-2024 04-19-2021 Chronic Esophageal disorders (5 sources) Gastroesophageal reflux disease without esophagitis; Translations: [Gastro-esophageal reflux disease without esophagitis] Onset: 02-16-2024 Chronic Essential hypertension (20 sources) Essential hypertension; Translations: [Essential (primary) hypertension] Onset: 05-21-2017 04-19-2021 Chronic Genitourinary symptoms and ill-defined conditions (4 sources) Dysuria; Translations: [Dysuria] 11-25-2022 Episodic Headache; including migraine (20 sources) Migraine with aura; Translations: [Migraine with aura, not intractable, without status migrainosus] 07-27-2007 Chronic Intestinal infection (1 source) Viral gastroenteritis; Translations: [Viral intestinal infection, unspecified] 06-10-2023 Episodic Mood disorders (20 sources) Recurrent major depressive episodes; Translations: [Major depressive disorder, recurrent, unspecified] Onset: 05-28-2009 04-19-2021 Chronic Mycoses (1 source) Candidiasis of vagina; Translations: [Vaginal yeast infection] 11-10-2023 Episodic Nausea and vomiting (2 sources) Nausea; Translations: [Nausea] Episodic Other aftercare (6 sources) Patient encounter status; Translations: [Other longterm (current) drug therapy] Episodic Other aftercare (1 source) Post-discharge follow-up; Translations: [Encounter for follow-up examination after completed treatment for conditions other than malignant neoplasm] 04-14-2023 Episodic Other connective tissue disease (1 source) Muscle pain; Translations: [Myalgia, unspecified site] 06-12-2024 Episodic Other female genital disorders (1 source) Vaginal bleeding; Translations: [Abnormal uterine and vaginal bleeding, unspecified] 11-10-2023 Chronic Other female genital disorders (1 source) Abnormal uterine and vaginal bleeding, unspecified; Translations: [Vaginal bleeding] Onset: 11-10-2023 Chronic Other female genital disorders (2 sources) Vaginal discharge; Translations: [Other specified noninflammatory disorders of vagina] 01-20-2023 Episodic Other female genital disorders (1 source) Pruritus of vagina; Translations: [Other specified noninflammatory disorders of vagina] 08-31-2024 Episodic Other inflammatory condition of skin (1 source) Itching ; Translations: [Pruritus, unspecified] 07-06-2024 Episodic Other injuries and conditions due to external causes (1 source) Injury of right foot; Translations: [Unspecified injury of right foot, sequela] Episodic Other injuries and conditions due to external causes (1 source) Muscle strain; Translations: [Other injury of unspecified body region, initial encounter] 06-10-2023 Episodic Other liver diseases (20 sources) Large liver; Translations: [Hepatomegaly, not elsewhere classified] 06-14-2013 Episodic Other lower respiratory disease (3 sources) Dyspnea on exertion; Translations: [Other forms of dyspnea] Episodic Other lower respiratory disease (1 source) Cough; Translations: [Cough] 02-27-2021 Episodic Other lower respiratory disease (1 source) Shortness of breath; Translations: [SOB (shortness of breath)] Onset: 12-23-2023 Episodic Other nervous system disorders (20 sources) Carpal tunnel syndrome; Translations: [Carpal tunnel syndrome, unspecified upper limb] Onset: 08-31-2007 08-31-2007 Chronic Other nervous system disorders (20 sources) Bilateral carpal tunnel syndrome; Translations: [Carpal tunnel syndrome, bilateral upper limbs] Onset: 01-25-2017 01-25-2017 Chronic Other non-traumatic joint disorders (1 source) Shoulder pain; Translations: [Pain in left shoulder] Episodic Other non-traumatic joint disorders (1 source) Pain in left shoulder; Translations: [Pain in joint, shoulder region] 08-21-2021 Episodic Other non-traumatic joint disorders (1 source) Pain in right shoulder; Translations: [Pain in joint, shoulder region] 08-12-2020 Episodic Other non-traumatic joint disorders (1 source) Chronic pain of right upper limb; Translations: [Pain in right shoulder] 08-12-2020 Episodic Other nutritional; endocrine; and metabolic disorders (20 sources) Obesity; Translations: [Other obesity due to excess calories] Onset: 07-27-2007 04-19-2021 Chronic Other nutritional; endocrine; and metabolic disorders (20 sources) Hypomagnesemia; Translations: [Hypomagnesemia] Onset: 04-18-2021 04-18-2021 Chronic Other nutritional; endocrine; and metabolic disorders (20 sources) Obese class II; Translations: [Obesity, unspecified] Onset: 04-29-2021 04-29-2021 Chronic Other nutritional; endocrine; and metabolic disorders (20 sources) Obesity caused by energy imbalance; Translations: [Other obesity due to excess calories] Onset: 07-27-2007 04-19-2021 Chronic Other upper respiratory infections (1 source) Acute upper respiratory infection; Translations: [Acute upper respiratory infection, unspecified] Episodic Residual codes; unclassified (20 sources) Obstructive sleep apnea syndrome; Translations: [Obstructive sleep apnea (adult) (pediatric)] Onset: 08-31-2007 04-19-2021 Chronic Residual codes; unclassified (1 source) Pain; Translations: [Pain, unspecified] 02-27-2021 Episodic Unclassified (1 source) Unknown / UNK(Unknown) Onset: 02-15-2017 Unclassified (2 sources) NO SHOW 05-18-2023 Unclassified (1 source) Vaginal yeast infection; Translations: [Vaginal yeast infection] Onset: 11-10-2023 Viral infection (4 sources) Viral disease; Translations: [Viral infection, unspecified] Onset: 06-26-2024 04-26-2023 Episodic Past or Other Problems Problem Classification Problem Date Documented Da te Episodic/Chronic Allergic reactions (20 sources) Allergy to penicillin; Translations: [Allergy status to penicillin] Onset: 07-27-2007 07-27-2007 Episodic Conditions associated with dizziness or vertigo (20 sources) Vertigo; Translations: [Dizziness and giddiness] Onset: 02-12-2012 Resolved: 02-05-2017 04-19-2021 Episodic Coronary atherosclerosis and other heart disease (20 sources) Patient post percutaneous transluminal coronary angioplasty; Translations: [Coronary angioplasty status] Onset: 03-22-2009 Resolved: 02-05-2017 02-05-2017 Episodic Immunizations and screening for infectious disease (3 sources) Vaccination needed; Translations: [Encounter for immunization] Onset: 02-13-2022 Episodic Nonspecific chest pain (20 sources) Chest pain; Translations: [Chest pain, unspecified] Onset: 03-18-2020 03-19-2020 Episodic Other lower respiratory disease (20 sources) Dyspnea; Translations: [Shortness of breath] Onset: 03-18-2020 03-19-2020 Episodic Other non-traumatic joint disorders (20 sources) Bilateral shoulder joint pain; Translations: [Pain in right shoulder] Onset: 09-16-2016 03-19-2020 Episodic Other screening for suspected conditions (not mental disorders or infectious disease) (20 sources) Cardiovascular stress test abnormal; Translations: [Abnormal result of other cardiovascular function study] Onset: 02-11-2022 Episodic Spondylosis; intervertebral disc disorders; other back problems (20 sources) Low back pain; Translations: [Lumbago] Onset: 03-26-2011 03-26-2011 Episodic Unclassified (1 source) Encounter for preprocedural cardiovascular examination Onset: 02-15-2017 Unclassified (1 source) Patient encounter status 06-13-2024 Results Test Name Value Interpretation Reference Range Facil ity CNCOon 09-06-2024 CNCO Letter Text Normal [facility] CNOVon 09-06-2024 CNOV Office Visit (ENWSTR ) CAMILA HARMON ([id number]) 1960 F Date Time Provider Department 09/06/24 9:45 AM VERÓNICA LUIS ENWSTR During your visit today, we recorded the following information about you: Pulse Respiration Blood pressure Weight 77/minute 20/minute 128/72 86 kg Height 1.524 m Verónica Luis, CONTROLS ENGINEER.SHIPPING ORDER CLERK 09/06/2024 9:39 AM Signed OFFICE VISIT PROGRESS NOTE CC Camila Harmon is a 63 year old who presents today for blood sugar review, DM med dose review, adjust. HPI PATIENT OF FIDEL GUEVARA, ENDOCRINE Diagnosed with diabetes mellitus type II, ~ 2005 Last endocrine OV Some elements copied from my note 08/10/2023 which have been updated where appropriate, and all reflect current medical decision making from date of this visit. 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 Kevin, 02/2024 - is due later this year, normal exam Last Podiatry Exam: Cardiorespiratory: negative, denies chest pain, pressure Claudication: no Dyslipidemia: Yes, controlled on medication High Blood Pressure: Yes, controlled on medication CURRENT LABS -- IN OFFICE A1C obtained for today's visit HEMOGLOBIN A1C Component Ref Range AND Units 3 mo ago (06/08/24) 6 mo ago (02/15/24) 11 mo ago (09/27/23) 1 yr ago (03/13/23) 1 yr ago (11/26/22) 2 yr ago (08/24/22) 2 yr ago (05/15/22) Hemoglobin A1C 4.3 - 5.6 % 8.2 High 7.9 High CM 10.4 High CM 10.7 High CM Latest Ref Rng 02/15/2024 Hemoglobin A1C 4.3 - 5.6 % 7.9 (H) Estimated Average Glucose mg/dL 180 Legend: (H) High Recent Labs 11/24/19 1029 03/18/20 1013 03/10/21 0905 04/17/21 1924 04/29/21 1510 06/30/21 0942 08/24/22 0807 09/16/22 0851 09/27/23 1526 09/29/23 1514 10/07/23 1827 02/15/24 0842 06/08/24 1208 ALT 26 < > 25 < > -- < > -- < > 29 -- 22 23 25 AST 26 < > 15 < > -- < > -- < > 21 -- -- 15 17 UCRR -- -- -- -- 191.6 -- 182.2 -- -- 54.9 -- -- -- UALBR -- -- -- -- 26.6 -- 43.8 -- -- <12.0 -- -- -- UALBCR -- -- -- -- 14 -- 24 -- -- <22 -- -- -- TSH 1.580 -- 1.090 -- -- -- -- -- -- -- -- -- -- TPROT 6.9 < > 7.3 < > -- < > -- < > 7.1 -- 7.0 6.9 7.2 ALB 4.1 < > 4.4 < > -- < > -- < > 4.4 -- 4.3 4.3 4.2 CA 9.4 < > 9.9 < > -- < > -- < > 9.7 -- 9.3 9.3 9.5 TBILI 1.0 < > 0.9 < > -- < > -- < > 1.2 -- 1.3 0.8 0.8 ALKPHOS 83 < > 96 < > -- < > -- < > 89 -- 85 89 82 GLUC 317* < > 371* < > -- < > -- < > 181* -- 214* 292* 168* BUN 13 < > 25* < > -- < > -- < > 29* -- 22* 25* 28* CREAT 0.55* < > 0.72 < > -- < > -- < > 0.91 -- 0.78 0.73 0.76 NA 137 < > 137 < > -- < > -- < > 138 -- 139 139 140 K 4.7 < > 4.8 < > -- < > -- < > 4.4 -- 4.3 4.4 4.6 CHLOR 100 < > 98 < > -- < > -- < > 102 -- 103 104 105 CO2 25 < > 25 < > -- < > -- < > 21* -- 21* 22 20* ANION 12 < > 14 < > -- < > -- < > 15 -- 15 13 15 EGFROTH >60 < > >60 < > -- < > -- < > 72 -- 87 94 89 HBA1C 10.0* < > 10.2* -- -- < > -- < > 10.4* -- -- 7.9* 8.2* < > = values in this interval not displayed. Recent Labs 11/26/22 0841 03/13/23 0930 05/12/23 1059 09/27/23 1526 02/15/24 0842 06/08/24 1208 TG 266* 186* -- 620* 275* 436* CHOL 133 142 -- 161 164 211* HDL 33* 36* -- 34* 34* 33* VLDL 53* 37* -- -- 55* 57* LDL 47 69 -- -- 75 -- FASTTIME 9.5 12 -- -- 12 12 TCHDL 4.03 3.94 -- 4.74 4.82 6.39* LDLHDL 1.42 1.92 -- -- 2.21 -- NONHDL 100 106 -- 127 130* 178* HBA1C 10.0* 10.7* < > 10.4* 7.9* 8.2* HBA0 240 260 -- 252 180 189 < > = values in this interval not displayed. PAST MEDICAL HISTORY Diagnosis Date Coronary artery disease Depressive disorder, not elsewhere classified Enlarged liver Excessive or frequent menstruation 07/06/2004 s/p TVH Migraine with aura, without mention of intractable migraine without mention of status migrainosus Other anxiety states Pure hypercholesterolemia S/P primary angioplasty with coronary stent 11/06/2008 Type II or unspecified type diabetes mellitus without mention of complication, not stated as uncontrolled PAST SURGICA (more content not included)... Normal [facility] HEMOGLOBIN A1C (POC)on 09-06 HbA1c (Bld) [Mass fraction] 8.2 % Abnormal 4.3 - 5.6 % [facility] Comment on above: [facility], [address], [place], [address] Point of care (POC) Hemoglobin A1c (HGBA1C) testing is intended to assess glucose control and provide a management tool for patients known to have diabetes and their healthcare providers. Target HGBA1C levels may depend on specific clinical circumstances. POC HGBA1C is not intended for use as a diagnostic or screening test; laboratory-based testing should be used for diagnostic purposes. The following information is supplemental and may not be applicable to specific diabetes management situations: The POC device cardiovascular or nurse provides a normal range of 4.2% to 6.5% for the HGBA1C POC test. However, the [place] [employer] guidelines indicate that patients with HGBA1C in the range of 5.7% to 6.4% are at increased risk for development of diabetes and that intervention by lifestyle modification may be beneficial. A HGBA1C level greater than or equal to 6.5% is considered diagnostic of diabetes, pending confirmatory testing. Use of HGBA1C testing to evaluate glucose control may not be appropriate for patients with hemoglobin variants or other conditions (e.g. anemia) that alter red blood cell lifespan. Interpretation and review of laboratory results Abnormal [facility]NP[facility] HARMON ([id number]) 1960 F Date Time Provider Department 08/31/24 EMILY WANG [facility] During your visit today, we recorded the following information about you: Olga Samayoa, KAUSHAL 08/31/2024 10:14 AM Signed Patient calls to request refill of Diflucan or recurrent yeast infection. No recent antibiotics. Pended as requested. Last OV: 07/06/2024 Next OV: 09/14/2024 KAUSHAL Cassidy Mark D, MD 09/01/2024 9:21 AM Signed OK to refill as ordered MD Katya Eli Amanda, RN 09/01/2024 9:49 AM Signed Called and left a voicemail for the Patient to call back and ask for a nurse to receive the providers message. KAUSHAL Arroyo Kathryn, MA 09/01/2024 11:23 AM Signed Notified via [email or web address] that rx was sent to pharmacy. Kaleigh Dudley MA Allergies As of Date: 08/31/2024 Noted Allergy Reaction PENICILLINS 06/29/2005 4 - Hives PERCOCET (OXYCODONE-ACETAMINOPHE N)08/31/2007 8 - GI Upset TYLENOL-CODEINE ELIXIR 05/21/2010 14 - Other: See Comments Comments: halucinations Date Reviewed: 07/06/2024 Reviewed by: Kaleigh Dudley MA - Fully Assessed Reason for Visit: Patient Question [1477] Visit Diagnosis:Vaginal itching [N89.8] Order(s):fluconazole (DIFLUCAN) 150 mg tabletTake 1 tablet by mouth one time only for 1 dose. Repeat in 3 days as needed.Disp: 2 tabletRfl: 0 Prescriptions as of 09/01/2024 - fluconazole (DIFLUCAN) 150 mg tablet Take 1 tablet by mouth one time only for 1 dose. Repeat in 3 days as needed. - MOUNJARO 15 mg/0.5 mL pen injector Inject 15 mg subcutaneously one time a week. - JARDIANCE 25 mg tablet TAKE 1 TABLET BY MOUTH EVERY MORNING - VITAMIN B-12 1,000 mcg TbER Take 1 tablet by mouth once daily. - hydrOXYzine HCl (ATARAX) 25 mg tablet Take 1 tablet by mouth every 6 hours as needed for anxiety. - gabapentin (NEURONTIN) 300 mg capsule Take 1 capsule by mouth two times a day for 180 days. - LORazepam (ATIVAN) 0.5 mg Take 2 tablets by mouth two times a day for 30 days. - cyclobenzaprine (FLEXERIL) 10 mg tablet Take 1 tablet by mouth three times a day as needed for muscle spasm. - atenolol (TENORMIN) 100 mg tablet Take 1 tablet by mouth once daily. - lisinopril (ZESTRIL) 20 mg tablet Take 1 tablet by mouth two times a day. - pantoprazole DR (PROTONIX) 40 mg tablet Take 1 tablet by mouth daily before breakfast. Take on empty stomach, 1/2 hr before meal. - PARoxetine (PAXIL) 10 mg tablet Take 1 tablet by mouth once daily. Take along with Paxil 40 mg tablet - PARoxetine (PAXIL) 40 mg tablet Take 1 tablet by mouth once daily. - evolocumab (REPATHA SURECLICK) 140 mg/mL pen injector Inject 140 mg subcutaneously every 2 weeks. - meclizine (ANTIVERT) 25 mg tab Take 1 tablet by mouth three times a day as needed. - atorvastatin (LIPITOR) 80 mg tablet Take 1 tablet by mouth daily at bedtime for cholesterol. - glimepiride (AMARYL) 4 mg tablet Take 1 tablet by mouth two times a day with meals. - Fenofibrate 40 mg tab Take 1 tablet by mouth once daily. - metFORMIN (GLUCOPHAGE) 500 mg tablet Take 1 tablet by mouth two times a day with meals. - cyanocobalamin (VITAMIN B-12) 1,000 mcg tab Take 1 tablet by mouth once daily. - cholecalciferol (VITAMIN D-3) 5,000 unit tab Take 1 tablet by mouth once daily. - Blood-Glucose Sensor ([employer] G7 SENSOR) john CHANGE SENSOR EVERY 10 days USE FOR CONTINUOUS GLUCOSE MONITORING. E11.9 - nitroglycerin sublingual (NITROQUICK) 0.4 mg SL tablet Dissolve 1 tablet under the tongue as needed. FOR CHEST PAIN. IF NO RELIEF CALL 911 - blood sugar diagnostic (BLOOD GLUCOSE TEST) test strip Test blood sugar(s) one times daily. Dx: Type 2 DM - Uncontrolled E11.65 Insulin: No - ezetimibe (ZETIA) 10 mg tablet Take 1 tablet by mouth once daily. - promethazine (PHENERGAN) 25 mg tablet Take 1 tablet by mouth every 6 hours as needed for nausea/vomiting. - busPIRone (BUSPAR) 15 mg tablet Take 1 tablet by mouth three times daily. - Blood-Glucose Meter Test blood sugar(s) 1 times daily. Dx: Type 2 DM - Uncontrolled E11.65 Insulin: No - Lancets lancets Test blood sugar(s) 1 times daily. Dx: Type 2 DM - Uncontrolled E11.65 Insulin: No - albuterol HFA (PROVENTIL HFA, VENTOLIN HFA) 90 mcg/actuation inhaler Inhale 2 Puffs as instructed every 4 hours as needed for wheezing/shortness of breath. - diclofenac (VOLTAREN) 1 % topical gel Apply 2 g to affected area four times daily. - Lancets lancets Test blood sugar(s) 1 times daily. Dx: E11.65. Insulin: No - aspirin 81 mg chewable tablet Take 81 mg by mouth once daily. - Blood-Glucose Meter monitoring kit Glucose Meter of Choice - Kit - Dx: Type 2 DM - Uncontrolled E11.65 - multivitamins(DAILY MULTIVITAMIN TAB) Take one(1) tablet daily. Meds Comments as of 11/08/2023: November 08, 2023: Feliciano (more content not included)... Normal [facility] CAMILA HARMON ([id number]) 1960 F Date Time Provider Department 07/07/24 [facility] PADRON During your visit today, we recorded the following information about you: Wilda Rolle 07/07/2024 12:21 PM Signed Patient calling stating that the Repatha is to expensive and she can not afford it. She is wondering if there is something else. Please contact patient at [phone] Shruthi Leblanc RN 07/07/2024 1:56 PM Signed Please see encounter from 06/09/2024. End encounter Allergies As of Date: 07/07/2024 Noted Allergy Reaction PENICILLINS 06/29/2005 4 - Hives PERCOCET (OXYCODONE-ACETAMINOPHE N)08/31/2007 8 - GI Upset TYLENOL-CODEINE ELIXIR 05/21/2010 14 - Other: See Comments Comments: halucinations Date Reviewed: 07/06/2024 Reviewed by: Kaleigh Dudley MA - Fully Assessed Reason for Visit: Medication Problem [65] Prescriptions as of 07/07/2024 - VITAMIN B-12 1,000 mcg TbER Take 1 tablet by mouth once daily. - methylPREDNISolone (MEDROL, SHER,) 4 mg Dose-Pack Take as instructed per package. - hydrOXYzine HCl (ATARAX) 25 mg tablet Take 1 tablet by mouth every 6 hours as needed for anxiety. - gabapentin (NEURONTIN) 300 mg capsule Take 1 capsule by mouth two times a day for 180 days. - LORazepam (ATIVAN) 0.5 mg Take 2 tablets by mouth two times a day for 30 days. - cyclobenzaprine (FLEXERIL) 10 mg tablet Take 1 tablet by mouth three times a day as needed for muscle spasm. - atenolol (TENORMIN) 100 mg tablet Take 1 tablet by mouth once daily. - lisinopril (ZESTRIL) 20 mg tablet Take 1 tablet by mouth two times a day. - pantoprazole DR (PROTONIX) 40 mg tablet Take 1 tablet by mouth daily before breakfast. Take on empty stomach, 1/2 hr before meal. - PARoxetine (PAXIL) 10 mg tablet Take 1 tablet by mouth once daily. Take along with Paxil 40 mg tablet - PARoxetine (PAXIL) 40 mg tablet Take 1 tablet by mouth once daily. - evolocumab (REPATHA SURECLICK) 140 mg/mL pen injector Inject 140 mg subcutaneously every 2 weeks. - meclizine (ANTIVERT) 25 mg tab Take 1 tablet by mouth three times a day as needed. - atorvastatin (LIPITOR) 80 mg tablet Take 1 tablet by mouth daily at bedtime for cholesterol. - glimepiride (AMARYL) 4 mg tablet Take 1 tablet by mouth two times a day with meals. - Fenofibrate 40 mg tab Take 1 tablet by mouth once daily. - metFORMIN (GLUCOPHAGE) 500 mg tablet Take 1 tablet by mouth two times a day with meals. - empagliflozin (JARDIANCE) 25 mg tablet Take 1 tablet once daily in the morning - tirzepatide (MOUNJARO) 15 mg/0.5 mL pen injector Inject 15 mg subcutaneously one time a week. - cyanocobalamin (VITAMIN B-12) 1,000 mcg tab Take 1 tablet by mouth once daily. - cholecalciferol (VITAMIN D-3) 5,000 unit tab Take 1 tablet by mouth once daily. - Blood-Glucose Sensor ([employer] G7 SENSOR) john CHANGE SENSOR EVERY 10 days USE FOR CONTINUOUS GLUCOSE MONITORING. E11.9 - nitroglycerin sublingual (NITROQUICK) 0.4 mg SL tablet Dissolve 1 tablet under the tongue as needed. FOR CHEST PAIN. IF NO RELIEF CALL 911 - blood sugar diagnostic (BLOOD GLUCOSE TEST) test strip Test blood sugar(s) one times daily. Dx: Type 2 DM - Uncontrolled E11.65 Insulin: No - ezetimibe (ZETIA) 10 mg tablet Take 1 tablet by mouth once daily. - promethazine (PHENERGAN) 25 mg tablet Take 1 tablet by mouth every 6 hours as needed for nausea/vomiting. - busPIRone (BUSPAR) 15 mg tablet Take 1 tablet by mouth three times daily. - Blood-Glucose Meter Test blood sugar(s) 1 times daily. Dx: Type 2 DM - Uncontrolled E11.65 Insulin: No - Lancets lancets Test blood sugar(s) 1 times daily. Dx: Type 2 DM - Uncontrolled E11.65 Insulin: No - albuterol HFA (PROVENTIL HFA, VENTOLIN HFA) 90 mcg/actuation inhaler Inhale 2 Puffs as instructed every 4 hours as needed for wheezing/shortness of breath. - diclofenac (VOLTAREN) 1 % topical gel Apply 2 g to affected area four times daily. - Lancets lancets Test blood sugar(s) 1 times daily. Dx: E11.65. Insulin: No - aspirin 81 mg chewable tablet Take 81 mg by mouth once daily. - Blood-Glucose Meter monitoring kit Glucose Meter of Choice - Kit - Dx: Type 2 DM - Uncontrolled E11.65 - multivitamins(DAILY MULTIVITAMIN TAB) Take one(1) tablet daily. Meds Comments as of 11/08/2023: November 08, 2023: Patient reports starting Diflucan in the last 30 days. Janeth Jennings RN 08/22/2019: No longer taking metformin. Ghislaine Austin RN (Nurse svp research & ebusiness operations). Also takes Paxil and a vitamin 1-1 S. KAUSHAL Bowman Problem List As Of Date 07/07/2024 Noted Resolved Routine gynecological examination [Z01.419] 07/27/2007 02/05/2017 Class: Chronic PERS HX PENICILLIN ALLERGY [Z88.0] 07/27/2007 Pure hypercholesterolemia [E78.00] Anxiety [F41.9] CLASS MIGRAIN W/O MENTN INTRACTABLE [G43.109] Diabetes mellitus, non-insuli (more content not included)... Normal [facility] CNOVon 07-06-2024 CNOV Office Visit (FAMPWS ) ERICKCAMILA WILLARD ([id number]) 1960 F Date Time Provider Department 07/06/24 11:00 AM EMILY WANG [facility] During your visit today, we recorded the following information about you: Pulse Respiration Blood pressure Weight 78/minute 18/minute 120/70 87.3 kg Emily Wang MD 07/06/2024 4:56 PM Signed Chief Complaint Patient presents with: Follow Up HPI Camila Ross Harmon is a 63 year old female who presents here today for follow up. Pt was seen 06/26/24 for shingles to left side abdomen and lower back. She was treated with Valacyclovir 1 mg three times a day for 7 days, Hydroxyzine for the itching 1 pill every 6 hours prn and Gabapentin 300 mg 1 pill BID for burning pain. Pt states that she is still having a lot of itching and is not sure if it is still the shingles or if she is having reaction to medications. She describes the itching as a tingling sensation all over the body. Pt states that she felt her balance and gait were not good while on the medications to treat shingles. She denies any new foods, soaps, or detergents. 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 Past medical history, appointments, medications, allergies reviewed. Previous Medical History PAST MEDICAL HISTORY Diagnosis Date Coronary artery disease Depressive disorder, not elsewhere classified Enlarged liver Excessive or frequent menstruation 07/06/2004 s/p TVH Migraine with aura, without mention of intractable migraine without mention of status migrainosus Other anxiety states Pure hypercholesterolemia S/P primary angioplasty with coronary stent 11/06/2008 Type II or unspecified type diabetes mellitus without mention of complication, not stated as uncontrolled Previous Surgical History PAST SURGICAL HISTORY Procedure Laterality Date CARPAL TUNNEL Bilateral 03/05/2017 COLONOSCOPY FLX DX W/COLLJ SPEC WHEN PFRMD 07/19/2013 Colonoscopy EXTRACTION, ERUPTED TOOTH OR EXPOSED ROOT (ELEVATION AND/OR FORCEPS REMOVAL) wisdom teeth HEART CATHETERIZATION N/A 02/11/2022 HYSTERECTOMY HX PAST SURGICAL HISTORY OF 02/22/2002 BREAST REDUCTION PAST SURGICAL HISTORY OF 2008, 2011 stent, LAD X2. VAGINAL HYSTERECTOMY UTERUS 250 GM/< 07/2004 Hysterectomy, vaginal Family History FAMILY HISTORY Problem Relation Age of Onset Hypertension Mother Diabetes Mother Heart Mother [place], age 72; first dx age late 60's Lipids Mother Stroke Mother Blindness Mother Hypertension Father Lipids Father Diabetes Father Patient Allergies ALLERGIES Allergen Reactions Penicillins Hives Percocet [Oxycodone* GI Upset Tylenol-Codeine Prerna* Other: See Comments halucinations Current Medications Current Outpatient Medications on File Prior to Visit Medication Sig hydrOXYzine HCl (ATARAX) 25 mg tablet Take 1 tablet by mouth every 6 hours as needed for anxiety. gabapentin (NEURONTIN) 300 mg capsule Take 1 capsule by mouth two times a day for 180 days. LORazepam (ATIVAN) 0.5 mg Take 2 tablets by mouth two times a day for 30 days. cyclobenzaprine (FLEXERIL) 10 mg tablet Take 1 tablet by mouth three times a day as needed for muscle spasm. atenolol (TENORMIN) 100 mg tablet Take 1 tablet by mouth once daily. lisinopril (ZESTRIL) 20 mg tablet Take 1 tablet by mouth two times a day. pantoprazole DR (PROTONIX) 40 mg tablet Take 1 tablet by mouth daily before breakfast. Take on empty stomach, 1/2 hr before meal. PARoxetine (PAXIL) 10 mg tablet Take 1 tablet by mouth once daily. Take along with Paxil 40 mg tablet PARoxetine (PAXIL) 40 mg tablet Take 1 tablet by mouth once daily. evolocumab (REPATHA SURECLICK) 140 mg/mL pen injector Inject 140 mg subcutaneously every 2 weeks. (Patient not taking: Reported on 06/26/2024) meclizine (ANTIVERT) 25 mg tab Take 1 tablet by mouth three times a day as needed. atorvastatin (LIPITOR) 80 mg tablet Take 1 tablet by mouth daily at bedtime for cholesterol. glimepiride (AMARYL) 4 mg tablet Take 1 tablet by mouth two times a day with meals. Fenofibrate 40 mg tab Take 1 tablet by mouth once daily. metFORMIN (GLUCOPHAGE) 500 mg tablet Take 1 tablet by mouth two times a day with meals. empagliflozin (JARDIANCE) 25 mg tablet Take 1 tablet once daily in the morning tirzepatide (MOUNJARO) 15 mg/0.5 mL pen injector Inject 15 mg subcutaneously one time a week. cyanocobalamin (VITAMIN B-12) 1,000 mcg tab Take 1 tablet by mouth once daily. cholecalciferol (VITAMIN D-3) 5,000 unit tab Take 1 tablet by mouth once daily. Blood-Glucose Sensor ([employer] G7 SENSOR) john CHANGE SENSOR EVERY 10 days USE FOR CONTINUOUS GLUCOSE MONITORING. E11.9 magnesium oxide (MAG-OX) 400 mg (241.3 mg magnesium) tablet Take 1 tablet by mouth two times a day. nitroglycerin sublingual (NITROQUICK) 0.4 mg SL tablet Di (more content not included)... Normal [facility] CAMILA HARMON ([id number]) 1960 F Date Time Provider Department 07/05/24 EMILY WANG During your visit today, we recorded the following information about you: Nargis Bolaños, RN 07/05/2024 8:51 PM Signed Pt calling in stating she saw Selene Cabrera on 06/26 and was dx with shingles. Pt states she is having burning, pain and itching all over her body. States her neck, her head, her face, her abdomen-everywhere. Pt also states she has been feeling off balance today. And states her mouth is so dry that it is hard to talk. Asked pt if she feels her speech is slurred as it sounds slightly slurred. Pt states she feels it is because her mouth is so dry. She states she has probably drank about 8-10 glasses of water today but feels she isn't urinating as often as she should. States she has only urinated 4 times since midnight with the last time being around 5 pm right before she left work and it was a moderate amount. States urine was a bright yellow in color. States because of her vitamins s that is the normal color of her urine. Pt is taking Lorazepam 0.5 mg 2 tabs every morning around 8 am and every evening around 8 pm. That is the same time she takes her Gabapentin 300 mg. Selene Cabrera also ordered pt Hydroxyzine HCL 25 mg every 6 hours as needed for itching/anxiety. Pt states she has been taking that at 8 am and 8 pm with her Lorazepam and her Gabapentin. Pt instructed to try taking these 3 meds at different times. Take her Gabapentin and Lorazepam about an hour apart and take her Hydroxyzine at completely different times than her Lorazepam. Pt instructed to take a Hydroxyzine now as she hasn't taken one since 8 am this morning. Appt made with Dr. Wang for 11 am tomorrow morning to discuss symptoms. Pt encouraged to go to ER if symptoms worsen. Pt verbalizes understanding. Went over pt's meds and a MyChart msg that pt was not aware of from 06/12. Pt is NOT taking her Repatha as she states it was going to cost her $600. She was going to check into it again. (msg sent to bessemer converter blower Dr. Hawa Padron to notify her of that). Pt notified needs to schedule a follow up with her rubber thread spooler as well. Given reminder to adhere to a low cholesterol, low saturated fat heart healthy diet. Notified of A1c results and informed to continue with current meds and work on eating a low carb diet. And notified to repeat labs in 3 months. Note to PSS to call pt and schedule her an appt with Storage Facility Housekeeper. Allergies As of Date: 07/05/2024 Noted Allergy Reaction PENICILLINS 06/29/2005 4 - Hives PERCOCET (OXYCODONE-ACETAMINOPHE N)08/31/2007 8 - GI Upset TYLENOL-CODEINE ELIXIR 05/21/2010 14 - Other: See Comments Comments: halucinations Date Reviewed: 06/26/2024 Reviewed by: Shelby Talley MA - Fully Assessed Reason for Visit: itching all over [Other] Prescriptions as of 07/05/2024 - hydrOXYzine HCl (ATARAX) 25 mg tablet Take 1 tablet by mouth every 6 hours as needed for anxiety. - gabapentin (NEURONTIN) 300 mg capsule Take 1 capsule by mouth two times a day for 180 days. - LORazepam (ATIVAN) 0.5 mg Take 2 tablets by mouth two times a day for 30 days. - cyclobenzaprine (FLEXERIL) 10 mg tablet Take 1 tablet by mouth three times a day as needed for muscle spasm. - atenolol (TENORMIN) 100 mg tablet Take 1 tablet by mouth once daily. - lisinopril (ZESTRIL) 20 mg tablet Take 1 tablet by mouth two times a day. - pantoprazole DR (PROTONIX) 40 mg tablet Take 1 tablet by mouth daily before breakfast. Take on empty stomach, 1/2 hr before meal. - PARoxetine (PAXIL) 10 mg tablet Take 1 tablet by mouth once daily. Take along with Paxil 40 mg tablet - PARoxetine (PAXIL) 40 mg tablet Take 1 tablet by mouth once daily. - evolocumab (REPATHA SURECLICK) 140 mg/mL pen injector Inject 140 mg subcutaneously every 2 weeks. - meclizine (ANTIVERT) 25 mg tab Take 1 tablet by mouth three times a day as needed. - atorvastatin (LIPITOR) 80 mg tablet Take 1 tablet by mouth daily at bedtime for cholesterol. - glimepiride (AMARYL) 4 mg tablet Take 1 tablet by mouth two times a day with meals. - Fenofibrate 40 mg tab Take 1 tablet by mouth once daily. - metFORMIN (GLUCOPHAGE) 500 mg tablet Take 1 tablet by mouth two times a day with meals. - empagliflozin (JARDIANCE) 25 mg tablet Take 1 tablet once daily in the morning - tirzepatide (MOUNJARO) 15 mg/0.5 mL pen injector Inject 15 mg subcutaneously one time a week. - cyanocobalamin (VITAMIN B-12) 1,000 mcg tab Take 1 tablet by mouth once daily. - cholecalciferol (VITAMIN D-3) 5,000 unit tab Take 1 tablet by mouth once daily. - Blood-Glucose Sensor ([employer] G7 SENSOR) john CHANGE SENSOR EVERY 10 days USE FOR CONTINUOUS GLUCOSE MONITORING. E11.9 - magnesium oxide (MAG-OX) 400 mg (241.3 mg magnesium) tablet Take (more content not included)... Normal [facility] CAM[facility] HAR[facility] ([id number]) 1960 F Date Time Provider Department 07/03/24 EMILY WANG [facility] During your visit today, we recorded the following information about you: Christina Mann, RN 07/03/2024 2:25 PM Signed Pt asking what cream she can use for shingles itching. Advised per protocol she can use calamine lotion, or benadryl cream. Advised benadryl can cause drowsiness. Advised to rub with ice cube for 10 min. Pt reports she is using cold compresses which help. Reports she is doing Aveeno bath, which helps. Patient agreeable to try calamine lotion. Allergies As of Date: 07/03/2024 Noted Allergy Reaction PENICILLINS 06/29/2005 4 - Hives PERCOCET (OXYCODONE-ACETAMINOPHE N)08/31/2007 8 - GI Upset TYLENOL-CODEINE ELIXIR 05/21/2010 14 - Other: See Comments Comments: halucinations Date Reviewed: 06/26/2024 Reviewed by: Shelby Talley MA - Fully Assessed Reason for Visit: Patient Question [7057] Prescriptions as of 07/03/2024 - valACYclovir (VALTREX) 1 gram tablet Take 1 tablet by mouth three times a day for 7 days. - hydrOXYzine HCl (ATARAX) 25 mg tablet Take 1 tablet by mouth every 6 hours as needed for anxiety. - gabapentin (NEURONTIN) 300 mg capsule Take 1 capsule by mouth two times a day for 180 days. - LORazepam (ATIVAN) 0.5 mg Take 2 tablets by mouth two times a day for 30 days. - cyclobenzaprine (FLEXERIL) 10 mg tablet Take 1 tablet by mouth three times a day as needed for muscle spasm. - atenolol (TENORMIN) 100 mg tablet Take 1 tablet by mouth once daily. - lisinopril (ZESTRIL) 20 mg tablet Take 1 tablet by mouth two times a day. - pantoprazole DR (PROTONIX) 40 mg tablet Take 1 tablet by mouth daily before breakfast. Take on empty stomach, 1/2 hr before meal. - PARoxetine (PAXIL) 10 mg tablet Take 1 tablet by mouth once daily. Take along with Paxil 40 mg tablet - PARoxetine (PAXIL) 40 mg tablet Take 1 tablet by mouth once daily. - evolocumab (REPATHA SURECLICK) 140 mg/mL pen injector Inject 140 mg subcutaneously every 2 weeks. - meclizine (ANTIVERT) 25 mg tab Take 1 tablet by mouth three times a day as needed. - atorvastatin (LIPITOR) 80 mg tablet Take 1 tablet by mouth daily at bedtime for cholesterol. - glimepiride (AMARYL) 4 mg tablet Take 1 tablet by mouth two times a day with meals. - Fenofibrate 40 mg tab Take 1 tablet by mouth once daily. - metFORMIN (GLUCOPHAGE) 500 mg tablet Take 1 tablet by mouth two times a day with meals. - empagliflozin (JARDIANCE) 25 mg tablet Take 1 tablet once daily in the morning - tirzepatide (MOUNJARO) 15 mg/0.5 mL pen injector Inject 15 mg subcutaneously one time a week. - cyanocobalamin (VITAMIN B-12) 1,000 mcg tab Take 1 tablet by mouth once daily. - cholecalciferol (VITAMIN D-3) 5,000 unit tab Take 1 tablet by mouth once daily. - Blood-Glucose Sensor ([employer] G7 SENSOR) john CHANGE SENSOR EVERY 10 days USE FOR CONTINUOUS GLUCOSE MONITORING. E11.9 - magnesium oxide (MAG-OX) 400 mg (241.3 mg magnesium) tablet Take 1 tablet by mouth two times a day. - nitroglycerin sublingual (NITROQUICK) 0.4 mg SL tablet Dissolve 1 tablet under the tongue as needed. FOR CHEST PAIN. IF NO RELIEF CALL 911 - blood sugar diagnostic (BLOOD GLUCOSE TEST) test strip Test blood sugar(s) one times daily. Dx: Type 2 DM - Uncontrolled E11.65 Insulin: No - ezetimibe (ZETIA) 10 mg tablet Take 1 tablet by mouth once daily. - promethazine (PHENERGAN) 25 mg tablet Take 1 tablet by mouth every 6 hours as needed for nausea/vomiting. - busPIRone (BUSPAR) 15 mg tablet Take 1 tablet by mouth three times daily. - Blood-Glucose Meter Test blood sugar(s) 1 times daily. Dx: Type 2 DM - Uncontrolled E11.65 Insulin: No - Lancets lancets Test blood sugar(s) 1 times daily. Dx: Type 2 DM - Uncontrolled E11.65 Insulin: No - albuterol HFA (PROVENTIL HFA, VENTOLIN HFA) 90 mcg/actuation inhaler Inhale 2 Puffs as instructed every 4 hours as needed for wheezing/shortness of breath. - diclofenac (VOLTAREN) 1 % topical gel Apply 2 g to affected area four times daily. - Lancets lancets Test blood sugar(s) 1 times daily. Dx: E11.65. Insulin: No - aspirin 81 mg chewable tablet Take 81 mg by mouth once daily. - Blood-Glucose Meter monitoring kit Glucose Meter of Choice - Kit - Dx: Type 2 DM - Uncontrolled E11.65 - multivitamins(DAILY MULTIVITAMIN TAB) Take one(1) tablet daily. Meds Comments as of 11/08/2023: November 08, 2023: Patient reports starting Diflucan in the last 30 days. Janeth Jennings RN 08/22/2019: No longer taking metformin. Ghislaine Austin RN (Nurse svp research & ebusiness operations). Also takes Paxil and a vitamin 1-1 S. KAUSHAL Bowman Problem List As Of Date 07/03/2024 Noted Resolved Routine gynecological examination [Z01.419] 07/27/2007 02/05/2017 Class: Chronic PERS HX PENICILLIN ALLERGY [Z88.0] 07/27/2007 Pure hyperc (more content not included)... Normal [facility] CNOVon 06-26-2024 CNOV Office Visit (FAMPWS ) ERICKCAMILA WILLARD ([id number]) 1960 F Date Time Provider Department 06/26/24 2:00 PM [facility] During your visit today, we recorded the following information about you: Temperature Pulse Blood pressure Weight 97.3 degrees 85/minute 128/70 88 kg Camila Cabrera, CONTROLS ENGINEER.SHIPPING ORDER CLERK 06/26/2024 3:04 PM Signed This is a 63 year old female who presents today with: Patient presents with: Rash HISTORY OF PRESENT ILLNESS: Camila Harmon is a 63 year old female. Patient presents with: Rash Pt. Started with rash that itches terrible. T 12 on left and some in that dermatome on the abdomen on left. Itches and terrell terrible. Present for 4 days Has had Shingrix vaccine X 2 Very stressed. PAST MEDICAL HISTORY: PAST MEDICAL HISTORY Diagnosis Date Coronary artery disease Depressive disorder, not elsewhere classified Enlarged liver Excessive or frequent menstruation 07/06/2004 s/p TVH Migraine with aura, without mention of intractable migraine without mention of status migrainosus Other anxiety states Pure hypercholesterolemia S/P primary angioplasty with coronary stent 11/06/2008 Type II or unspecified type diabetes mellitus without mention of complication, not stated as uncontrolled PAST SURGICAL HISTORY Procedure Laterality Date CARPAL TUNNEL Bilateral 03/05/2017 COLONOSCOPY FLX DX W/COLLJ SPEC WHEN PFRMD 07/19/2013 Colonoscopy EXTRACTION, ERUPTED TOOTH OR EXPOSED ROOT (ELEVATION AND/OR FORCEPS REMOVAL) wisdom teeth HEART CATHETERIZATION N/A 02/11/2022 HYSTERECTOMY HX PAST SURGICAL HISTORY OF 02/22/2002 BREAST REDUCTION PAST SURGICAL HISTORY OF 2008, 2011 stent, LAD X2. VAGINAL HYSTERECTOMY UTERUS 250 GM/< 07/2004 Hysterectomy, vaginal ALLERGIES Penicillins, Percocet [Oxycodone-Acetaminophe n], and Tylenol-Codeine Elixir MEDICATIONS Current Outpatient Medications Medication Sig LORazepam (ATIVAN) 0.5 mg Take 2 tablets by mouth two times a day for 30 days. cyclobenzaprine (FLEXERIL) 10 mg tablet Take 1 tablet by mouth three times a day as needed for muscle spasm. atenolol (TENORMIN) 100 mg tablet Take 1 tablet by mouth once daily. lisinopril (ZESTRIL) 20 mg tablet Take 1 tablet by mouth two times a day. pantoprazole DR (PROTONIX) 40 mg tablet Take 1 tablet by mouth daily before breakfast. Take on empty stomach, 1/2 hr before meal. PARoxetine (PAXIL) 10 mg tablet Take 1 tablet by mouth once daily. Take along with Paxil 40 mg tablet PARoxetine (PAXIL) 40 mg tablet Take 1 tablet by mouth once daily. meclizine (ANTIVERT) 25 mg tab Take 1 tablet by mouth three times a day as needed. atorvastatin (LIPITOR) 80 mg tablet Take 1 tablet by mouth daily at bedtime for cholesterol. hydrOXYzine HCl (ATARAX) 25 mg tablet Take 1 tablet by mouth every 6 hours as needed for anxiety. glimepiride (AMARYL) 4 mg tablet Take 1 tablet by mouth two times a day with meals. Fenofibrate 40 mg tab Take 1 tablet by mouth once daily. metFORMIN (GLUCOPHAGE) 500 mg tablet Take 1 tablet by mouth two times a day with meals. empagliflozin (JARDIANCE) 25 mg tablet Take 1 tablet once daily in the morning tirzepatide (MOUNJARO) 15 mg/0.5 mL pen injector Inject 15 mg subcutaneously one time a week. cyanocobalamin (VITAMIN B-12) 1,000 mcg tab Take 1 tablet by mouth once daily. cholecalciferol (VITAMIN D-3) 5,000 unit tab Take 1 tablet by mouth once daily. Blood-Glucose Sensor ([employer] [place] G7 SENSOR) john CHANGE SENSOR EVERY 10 days USE FOR CONTINUOUS GLUCOSE MONITORING. E11.9 magnesium oxide (MAG-OX) 400 mg (241.3 mg magnesium) tablet Take 1 tablet by mouth two times a day. nitroglycerin sublingual (NITROQUICK) 0.4 mg SL tablet Dissolve 1 tablet under the tongue as needed. FOR CHEST PAIN. IF NO RELIEF CALL 911 blood sugar diagnostic (BLOOD GLUCOSE TEST) test strip Test blood sugar(s) one times daily. Dx: Type 2 DM - Uncontrolled E11.65 Insulin: No ezetimibe (ZETIA) 10 mg tablet Take 1 tablet by mouth once daily. promethazine (PHENERGAN) 25 mg tablet Take 1 tablet by mouth every 6 hours as needed for nausea/vomiting. busPIRone (BUSPAR) 15 mg tablet Take 1 tablet by mouth three times daily. Blood-Glucose Meter Test blood sugar(s) 1 times daily. Dx: Type 2 DM - Uncontrolled Insulin: No Lancets lancets Test blood sugar(s) 1 times daily. Dx: Type 2 DM - Uncontrolled Insulin: No albuterol HFA (PROVENTIL HFA, VENTOLIN HFA) 90 mcg/actuation inhaler Inhale 2 Puffs as instructed every 4 hours as needed for wheezing/shortness of breath. diclofenac (VOLTAREN) 1 % topical gel Apply 2 g to affected area four times daily. Lancets lancets Test blood sugar(s) 1 times daily. Dx: E11.65. Insulin: No aspirin 81 mg chewable tablet Take 81 mg by mouth once daily. Blood-Glucose Meter monitoring kit Glucose Meter of Choice - Kit - Dx: Type 2 DM (more content not included)... Normal [facility] CNOVon 06-12-2024 CNOV Office Visit (FAMPWS ) CAMILA HARMON ([id number]) 1960 F Date Time Provider Department 06/12/24 7:20 PM EMILY WANG FAMPWS During your visit today, we recorded the following information about you: Pulse Respiration Blood pressure Weight 68/minute 18/minute 124/68 87.8 kg Emily Wang MD 06/12/2024 7:52 PM Signed Chief Complaint Patient presents with: Fibromyalgia Medication Follow-up HPI Camila Brown Faustino is a 63 year old female who presents here today for follow up and new problem. Pt c/o body aches all over and a feeling of being squishy. A lot of the pain is located in neck, upper shoulder and upper back area. This has been ongoing for the past couple weeks. She has been taking up to 9 Tylenol per day for pain relief and is seeking a new prescription for a muscle relaxer, specifically Flexeril, which she has not tried before. She has also been using a topical lotion containing wintergreen, eucalyptus, and camphor, which provides some relief after an initial Requesting refill of Flexeril 10 mg 1 tab po TID prn. Hx of anxiety and depression. Is on current regimen of Paxil 10 +40 mg daily, Buspar 15 mg TID and Ativan 0.5 mg 2 tabs po bid. Pt has been referred to Psych, appt's with Samra pelayo and pt has no showed them. Pt reports she's forgotten them due to being so busy at work. GI - Takes Protonix 40 mg once daily, stable. DM - Checking sugars at home, maybe twice a week. Denies lows or neuropathy symptoms. On current regimen of Mounjaro 15 mg once weekly, Jardiance 25 mg once daily, Amaryl 4 mg once daily, and Metformin 500 mg 1 tab po bid. HTN - Denies checking BP at home or having symptoms of chest pain or sob. Notes dizziness. On current regimen of Lisinopril 20 mg 1 tab po bid and Atenolol 100 mg once daily. Lipids - Tries to watch diet. Denies any formal exercise but only at work. On current regimen of Lipitor 80 mg once daily, Fenofibrate 40 mg once daily and Zetia 10 mg once daily. Camila also reports xerostomia for the past 3 days, despite increasing her water intake and adding lemon to her water. She is currently taking Mounjaro 15 mg, metformin BID, glimepiride, Zetia, Repatha, and Jardiance. Recent lab work showed an A1c of 8.2 and a blood glucose level of 168 mg/dL, which is an improvement from previous readings. 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 She mentions feeling tired even after a full night's sleep and taking naps after work. She also experiences episodes of dissociation, where she does not remember how she arrived at a destination while driving. She is currently taking lorazepam for anxiety. Past medical history, appointments, medications, allergies reviewed. Previous Medical History PAST MEDICAL HISTORY Diagnosis Date Coronary artery disease Depressive disorder, not elsewhere classified Enlarged liver Excessive or frequent menstruation 07/06/2004 s/p TVH Migraine with aura, without mention of intractable migraine without mention of status migrainosus Other anxiety states Pure hypercholesterolemia S/P primary angioplasty with coronary stent 11/06/2008 Type II or unspecified type diabetes mellitus without mention of complication, not stated as uncontrolled Previous Surgical History PAST SURGICAL HISTORY Procedure Laterality Date CARPAL TUNNEL Bilateral 03/05/2017 COLONOSCOPY FLX DX W/COLLJ SPEC WHEN PFRMD 07/19/2013 Colonoscopy EXTRACTION, ERUPTED TOOTH OR EXPOSED ROOT (ELEVATION AND/OR FORCEPS REMOVAL) wisdom teeth HEART CATHETERIZATION N/A 02/11/2022 HYSTERECTOMY HX PAST SURGICAL HISTORY OF 02/22/2002 BREAST REDUCTION PAST SURGICAL HISTORY OF 2008, 2011 stent, LAD X2. VAGINAL HYSTERECTOMY UTERUS 250 GM/< 07/2004 Hysterectomy, vaginal Family History FAMILY HISTORY Problem Relation Age of Onset Hypertension Mother Diabetes Mother Heart Mother [place], age 72; first dx age late 60's Lipids Mother Stroke Mother Blindness Mother Hypertension Father Lipids Father Diabetes Father Patient Allergies ALLERGIES Allergen Reactions Penicillins Hives Percocet [Oxycodone* GI Upset Tylenol-Codeine Prerna* Other: See Comments halucinations Current Medications Current Outpatient Medications on File Prior to Visit Medication Sig atenolol (TENORMIN) 100 mg tablet Take 1 tablet by mouth once daily. lisinopril (ZESTRIL) 20 mg tablet Take 1 tablet by mouth two times a day. pantoprazole DR (PROTONIX) 40 mg tablet Take 1 tablet by mouth daily before breakfast. Take on empty stomach, 1/2 hr before meal. PARoxetine (PAXIL) 10 mg tablet Take 1 tablet by mouth once daily. Take along with Paxil 40 mg tablet PARoxetine (PAXIL) 40 mg tablet Take 1 tablet by mouth once daily. evolocumab (REPA (more content not included)... Normal [facility] HAR[facility] ([id number]) 1960 F Date Time Provider Department 06/12/24 EMILY WANG During your visit today, we recorded the following information about you: Nargis Bolaños, RN 06/12/2024 7:05 PM Signed Pt calling in for a refill on her Lorazepam. Last visit 02/16/24. No upcoming appt scheduled. Pt also requesting a refill on a prescription from 2022. Pt asking for a refill on her Cyclobenzaprine muscle relaxant. Pt states she has been having a lot of muscle aches and needs something to help her relax. Informed pt that she would need appt. Pt declined offered appt tomorrow and states I work and can't come in. Booked for tonight at [address] Wang. Informed pt that this is a problem only appt and 20 mins. Will need to schedule followup later. Allergies As of Date: 06/12/2024 Noted Allergy Reaction PENICILLINS 06/29/2005 4 - Hives PERCOCET (OXYCODONE-ACETAMINOPHE N)08/31/2007 8 - GI Upset TYLENOL-CODEINE ELIXIR 05/21/2010 14 - Other: See Comments Comments: halucinations Date Reviewed: 04/24/2024 Reviewed by: Frank Batista LPN - Fully Assessed Reason for Visit: Medication request [Other] body aches [Other] Prescriptions as of 06/12/2024 - atenolol (TENORMIN) 100 mg tablet Take 1 tablet by mouth once daily. - lisinopril (ZESTRIL) 20 mg tablet Take 1 tablet by mouth two times a day. - pantoprazole DR (PROTONIX) 40 mg tablet Take 1 tablet by mouth daily before breakfast. Take on empty stomach, 1/2 hr before meal. - PARoxetine (PAXIL) 10 mg tablet Take 1 tablet by mouth once daily. Take along with Paxil 40 mg tablet - PARoxetine (PAXIL) 40 mg tablet Take 1 tablet by mouth once daily. - evolocumab (REPATHA SURECLICK) 140 mg/mL pen injector Inject 140 mg subcutaneously every 2 weeks. - meclizine (ANTIVERT) 25 mg tab Take 1 tablet by mouth three times a day as needed. - atorvastatin (LIPITOR) 80 mg tablet Take 1 tablet by mouth daily at bedtime for cholesterol. - LORazepam (ATIVAN) 0.5 mg Take 2 tablets by mouth two times a day for 30 days. - hydrOXYzine HCl (ATARAX) 25 mg tablet Take 1 tablet by mouth every 6 hours as needed for anxiety. - glimepiride (AMARYL) 4 mg tablet Take 1 tablet by mouth two times a day with meals. - Fenofibrate 40 mg tab Take 1 tablet by mouth once daily. - metFORMIN (GLUCOPHAGE) 500 mg tablet Take 1 tablet by mouth two times a day with meals. - empagliflozin (JARDIANCE) 25 mg tablet Take 1 tablet once daily in the morning - tirzepatide (MOUNJARO) 15 mg/0.5 mL pen injector Inject 15 mg subcutaneously one time a week. - cyanocobalamin (VITAMIN B-12) 1,000 mcg tab Take 1 tablet by mouth once daily. - cholecalciferol (VITAMIN D-3) 5,000 unit tab Take 1 tablet by mouth once daily. - esomeprazole (NEXIUM) 20 mg capsule Take 20 mg by mouth daily at 6 am. - Blood-Glucose Sensor ([employer] G7 SENSOR) john CHANGE SENSOR EVERY 10 days USE FOR CONTINUOUS GLUCOSE MONITORING. E11.9 - ondansetron orally disintegrating (ZOFRAN ODT) 4 mg disintegrating tablet Take 1 tablet by mouth every 6 hours as needed for nausea/vomiting. - gabapentin (NEURONTIN) 300 mg capsule Take 1 capsule by mouth two times a day for 180 days. - magnesium oxide (MAG-OX) 400 mg (241.3 mg magnesium) tablet Take 1 tablet by mouth two times a day. - nitroglycerin sublingual (NITROQUICK) 0.4 mg SL tablet Dissolve 1 tablet under the tongue as needed. FOR CHEST PAIN. IF NO RELIEF CALL 911 - blood sugar diagnostic (BLOOD GLUCOSE TEST) test strip Test blood sugar(s) one times daily. Dx: Type 2 DM - Uncontrolled E11.65 Insulin: No - ezetimibe (ZETIA) 10 mg tablet Take 1 tablet by mouth once daily. - cyclobenzaprine (FLEXERIL) 10 mg tablet Take 1 tablet by mouth three times daily as needed for muscle spasm. - promethazine (PHENERGAN) 25 mg tablet Take 1 tablet by mouth every 6 hours as needed for nausea/vomiting. - busPIRone (BUSPAR) 15 mg tablet Take 1 tablet by mouth three times daily. - Blood-Glucose Meter Test blood sugar(s) 1 times daily. Dx: Type 2 DM - Uncontrolled E11.65 Insulin: No - Lancets lancets Test blood sugar(s) 1 times daily. Dx: Type 2 DM - Uncontrolled E11.65 Insulin: No - albuterol HFA (PROVENTIL HFA, VENTOLIN HFA) 90 mcg/actuation inhaler Inhale 2 Puffs as instructed every 4 hours as needed for wheezing/shortness of breath. - diclofenac (VOLTAREN) 1 % topical gel Apply 2 g to affected area four times daily. - Lancets lancets Test blood sugar(s) 1 times daily. Dx: E11.65. Insulin: No - aspirin 81 mg chewable tablet Take 81 mg by mouth once daily. - Blood-Glucose Meter monitoring kit Glucose Meter of Choice - Kit - Dx: Type 2 DM - Uncontrolled E11.65 - multivitamins(DAILY MULTIVITAMIN TAB) Take one(1) tablet daily. Meds Comments as of 11/08/2023: November 08, 2023: Patient reports starting Di (more content not included)... Normal [facility] Bilirub Conj SerPl-mCncon Bilirubin.conjugated [Mass/Vol] 0.2 mg/dL Normal <0.3 [facility] Comment on above: Order Comment: Speci men Type: BLOOD SPECIMENOrdering Facility: [facility] Address: [address] [place] [address] Performed By: #### 1 8262-6, 73808-4, 35504-1, 39248-4 ####[facility] LABCLIA [id number] [place] [address] [place] Cholesterol in LDL Direct as say [Mass/Vol]on 06-08-2024 Cholesterol in LDL [Mass/Vol] 121 mg/dL High <100 [facility] Comment on above: Order Comment: Speci men Type: BLOOD SPECIMENOrdering Facility: [facility] Address: [address] [place] [address] Result Comment: <100 mg/dL, Optimal 100-129 mg/dL, Near optimal/above optimal 130-159 mg/dL, Borderline high 160-189 mg/dL, High >189 mg/dL, Very high Secondary prevention optimal LDL Cholesterol levels are recommended to be < 70 mg/dL Performed By: #### 1 8262-6, 46700-1, 90746-2, 36663-4 ####[facility] LABIA [id number] [address] [address] [place] Cholesterol in VLDL [Mass/Vol] 57 mg/dL High <30 [facility] Comment on above: Order Comment: Speci men Type: BLOOD SPECIMENOrdering Facility: [facility] Address: [address] [place] [address] Performed By: #### 1 8262-6, 66679-6, 31122-8, 81391-3 ####[facility] LABIA [id number] [address] [address] [place] Comprehensive metabolic 2000 panelon 06-08-2024 Albumin [Mass/Vol] 4.2 g/dL Normal 3.9-4.9 [facility] Comment on above: Order Comment: Speci men Type: BLOOD SPECIMENOrdering Facility: [facility] Address: [address] [place] [address] Performed By: #### 1 8262-6, 77782-6, 46508-4, 29705-8 ####[facility] [id number] [address] [address] [place] ALP [Catalytic activity/Vol] 82 U/L Normal 34-123 [facility] Comment on above: Order Comment: Speci men Type: BLOOD SPECIMENOrdering Facility: [facility] Address: [address] [place] [address] Performed By: #### 1 8262-6, 97871-2, 00272-0, 68431-5 ####[facility] LABCLIA [id number] [address] [address] [place] ALT [Catalytic activity/Vol] 25 U/L Normal 7-38 [facility] Comment on above: Order Comment: Speci men Type: BLOOD SPECIMENOrdering Facility: [facility] Address: [address] [place] [address] Performed By: #### 1 8262-6, 30547-7, 18839-6, 27295-0 ####[facility] LABCLIA [id number] [address] [address] [place] Anion gap [Moles/Vol] 15 mmol/L Normal 8-15 [facility] Comment on above: Order Comment: Speci men Type: BLOOD SPECIMENOrdering Facility: [facility] Address: [address] [place] [address] Performed By: #### 1 8262-6, 56646-3, 79274-4, 15527-2 ####[facility] LABCLIA [id number] [address] [address] [place] AST [Catalytic activity/Vol] 17 U/L Normal 13-35 [facility] Comment on above: Order Comment: Speci men Type: BLOOD SPECIMENOrdering Facility: [facility] Address: [address] [place] [address] Performed By: #### 1 8262-6, 48825-7, 27898-5, 47671-6 ####[facility] LABCLIA [id number] [address] [address] [place] Bilirubin [Mass/Vol] 0.8 mg/dL Normal 0.2-1.3 [facility] Comment on above: Order Comment: Speci men Type: BLOOD SPECIMENOrdering Facility: [facility] Address: [address] [place] [address] Performed By: #### 1 8262-6, 46405-6, 90941-8, 25560-9 ####[facility] LABCLIA [id number] [address] [address] [place] Calcium [Mass/Vol] 9.5 mg/dL Normal 8.5-10.2 [facility] Comment on above: Order Comment: Speci men Type: BLOOD SPECIMENOrdering Facility: [facility] Address: [address] [place] [address] Performed By: #### 1 8262-6, 07675-7, 56398-2, 69255-4 ####[facility] LABCLIA [id number] [address] [address] [place] Chloride [Moles/Vol] 105 mmol/L Normal 98-107 [facility] Comment on above: Order Comment: Speci men Type: BLOOD SPECIMENOrdering Facility: [facility] Address: [address] [place] [address] Performed By: #### 1 8262-6, 85297-8, 08550-3, 31662-0 ####[facility] LABCLIA [id number] [address] [address] [place] CO2 [Moles/Vol] 20 mmol/L Low 22-30 [facility] Comment on above: Order Comment: Speci men Type: BLOOD SPECIMENOrdering Facility: [facility] Address: [address] [place] [address] Performed By: #### 1 8262-6, 68149-6, 21691-8, 70929-7 ####[facility] LABCLIA [id number] [address] [address] [place] Creatinine [Mass/Vol] 0.76 mg/dL Normal 0.58-0.96 [facility] Comment on above: Order Comment: Speci men Type: BLOOD SPECIMENOrdering Facility: [facility] Address: [address] [place] [address] Performed By: #### 1 8262-6, 65357-2, 82273-4, 18922-8 ####[facility] LABCLIA [id number] [place] [address] [place] Creatinine and Glomerular filtration rate.predicted panel (S/P/Bld) 89 mL/min/1.73m??? Normal >=60 [facility] Comment on above: Order Comment: Luke viera Type: BLOOD SPECIMENOrdering Facility: [facility] Address: [address] [place] [address] Result Comment: Gin mated Glomerular Filtration Rate (eGFR) is calculated using the 2020 CKD-EPI creatinine equation. This equation utilizes serum creatinine, sex, and age as parameters. The creatinine assay has traceable calibration to isotope dilution-mass spectrometry. Refer to KDIGO guidelines for clinical interpretation. In patients with unstable renal function, e.g. those with acute kidney injury, the eGFR may not accurately reflect actual GFR. Performed By: #### 1 8262-6, 37620-4, 36751-5, 62730-2 ####[facility] LABCLIA [id number] [place] [address] [place] Glucose [Mass/Vol] 168 mg/dL High 74-99 [facility] Comment on above: Order Comment: Luke viera Type: BLOOD SPECIMENOrdering Facility: [facility] Address: [address] [place] [address] Result Comment: The [place] Diabetes Association (ADA) provides guidance for cutoff values for fasting glucose and random glucose. The ADA defines fasting as no caloric intake for at least 8 hours. Fasting plasma glucose results between 100 to 125 mg/dL indicate increased risk for diabetes (prediabetes). Fasting plasma glucose results greater than or equal to 126 mg/dL meet the criteria for diagnosis of diabetes. In the absence of unequivocal hyperglycemia, results should be confirmed by repeat testing. In a patient with classic symptoms of hyperglycemia or hyperglycemic crisis, random plasma glucose results greater than or equal to 200 mg/dL meet the criteria for diagnosis of diabetes. Reference: Standards of Medical Care in Diabetes 2016, [place] Diabetes Association. Diabetes Care. 2016.39(Suppl 1). Performed By: #### 1 8262-6, 21297-7, 00937-5, 81790-5 ####[facility] LABCLIA [id number] [address] [address] [place] Potassium [Moles/Vol] 4.6 mmol/L Normal 3.7-5.1 [facility] Comment on above: Order Comment: Speci men Type: BLOOD SPECIMENOrdering Facility: [facility] Address: [address] [place] [address] Performed By: #### 1 8262-6, 86100-6, 37222-9, 00928-7 ####[facility] LABCLIA [id number] [address] [address] [place] Protein [Mass/Vol] 7.2 g/dL Normal 6.3-8.0 [facility] Comment on above: Order Comment: Speci men Type: BLOOD SPECIMENOrdering Facility: [facility] Address: [address] [place] [address] Performed By: #### 1 8262-6, 81856-3, 27821-4, 92209-3 ####[facility] LABCLIA [id number] [address] [address] [place] Sodium [Moles/Vol] 140 mmol/L Normal 136-144 [facility] Comment on above: Order Comment: Speci men Type: BLOOD SPECIMENOrdering Facility: [facility] Address: [address] [place] [address] Performed By: #### 1 8262-6, 32751-8, 23137-1, 06856-7 ####[facility] LABCLIA [id number] [address] [address] [place] Urea nitrogen [Mass/Vol] 28 mg/dL High 7-21 [facility] Comment on above: Order Comment: Speci men Type: BLOOD SPECIMENOrdering Facility: [facility] Address: [address] [place] [address] Performed By: #### 1 8262-6, 37190-8, 81106-8, 68067-2 ####[facility] LABCLIA [id number] [address] [place] HbA1c (Bld)on 06-08-2024 Average glucose Estimated from glycated hemoglobin (Bld) [Mass/Vol] 189 mg/dL Normal [facility] Comment on above: Order Comment: Luke viera Type: BLOOD SPECIMENOrdering Facility: [facility] Address: [address] [place] [address] Result Comment: eAG: (Estimated average glucose) is a calculated value from HgbA1c and is abrasives sales representative of the average blood glucose level in the last 2-3 month period. Performed By: #### 5 5454-3 ####[facility] LABIA [id number] [address] [place] [facility] HbA1c (Bld) [Mass fraction] 8.2 % High 4.3-5.6 [facility] Comment on above: Order Comment: Luke viera Type: BLOOD SPECIMENOrdering Facility: [facility] Address: [address] [place] [address] Result Comment: [place] Diabetes Association guidelines indicate that patients with HgbA1c in the range 5.7-6.4% are at increased risk for development of diabetes, and intervention by lifestyle modification may be beneficial. HgbA1c greater or equal to 6.5% is considered diagnostic of diabetes. Performed By: #### 5 5454-3 ####[facility] LABIA [id number] [place] [address] [place] [facility] [place] Lipid 1996 panelon 5 Cholesterol [Mass/Vol] 211 mg/dL High <200 [facility] Comment on above: Order Comment: Luke viera Type: BLOOD SPECIMENOrdering Facility: [facility] Address: [address] [place] [address] Result Comment: <200 mg/dL, Desirable 200-239 mg/dL, Borderline high >239 mg/dL, High Performed By: #### 1 8262-6, 65849-0, 31495-2, 48339-8 ####[facility] LABCLIA [id number] [address] [place] Cholesterol in HDL [Mass/Vol] 33 mg/dL Low >39 [facility] Comment on above: Order Comment: Speci men Type: BLOOD SPECIMENOrdering Facility: [facility] Address: [address] [place] [address] Result Comment: 40-5 9 mg/dL, Acceptable >59 mg/dL, High: Negative risk factor for coronary heart disease <40 mg/dL, Low: Positive risk factor for coronary heart disease Performed By: #### 1 8262-6, 89847-7, 12530-2, 31391-1 ####[facility] LABIA [id number] [address] Cholesterol in LDL [Mass/Vol] Normal [facility] Comment on above: Order Comment: Speci men Type: BLOOD SPECIMENOrdering Facility: [facility] Address: [address] [place] [address] Result Comment: Unab le to calculate due to increased Triglycerides. See LDL-Chol, Direct. Performed By: #### 1 8262-6, 09792-4, 56483-4, 43279-2 ####[facility] LABIA [id number] [address] Cholesterol in LDL/Cholesterol in HDL [Mass ratio] Normal [facility] Comment on above: Order Comment: Speci [facility] Type: BLOOD SPECIMENOrdering Facility: [facility] Address: [address] [place] [address] Result Comment: Unab le to calculate due to elevated Triglycerides. Reference: 1. National Cholesterol Education Program ATP III Guideline At-A-Glance Quick Desk Reference: National Heart, Lung, and Blood [place]. National Institutes of Health. 2001: NIH Publication No. 01-3305. 2. An International Atherosclerosis Society position paper: global recommendations for the management of dyslipidemia: executive summary, Atherosclerosis. 2014: 232(2):410-413. Performed By: #### 1 8262-6, 88632-8, 51875-6, 00560-5 ####[facility] LABCLIA [id number] [facility] [id number] [address] [place] Cholesterol in VLDL [Mass/Vol] Normal [facility] Comment on above: Order Comment: Speci men Type: BLOOD SPECIMENOrdering Facility: [facility] Address: [address] [place] [address] Result Comment: Unab le to calculate due to increased Triglycerides. See LDL-Chol, Direct. Performed By: #### 1 8262-6, 25521-0, 27527-1, 70033-8 ####[facility] LABCLIA [id number] [facility] [id number], [place] [address] [place] Cholesterol non HDL [Mass/Vol] 178 mg/dL High <130 [facility] Comment on above: Order Comment: Speci men Type: BLOOD SPECIMENOrdering Facility: [facility] Address: [address] [place] [address] Result Comment: <130 mg/dL, Optimal 130-159 mg/dL, Near optimal/above optimal 160-189 mg/dL, Borderline high 190-219 mg/dL, High >219 mg/dL, Very high Secondary prevention optimal non HDL Cholesterol levels are recommended to be <100 mg/dL Performed By: #### 1 8262-6, 16817-7, 53640-7, 64502-3 ####[facility] LABCLIA [id number] [facility] [address] [place] [address] [place] Cholesterol.total/Ch olesterol in HDL [Mass ratio] 6.39 {ratio} High <5.10 [facility] Comment on above: Order Comment: Speci men Type: BLOOD SPECIMENOrdering Facility: [facility] Address: [address] [place] [address] Performed By: #### 1 8262-6, 43873-1, 20450-3, 67615-2 ####[facility] LABCLIA [id number] [facility] [id number], [place] [address] [place] FASTING TIME 12 hrs Normal [facility] Comment on above: Order Comment: Speci men Type: BLOOD SPECIMENOrdering Facility: [facility] Address: [address] [place] [address] Performed By: #### 1 8262-6, 70743-6, 10242-2, 70979-9 ####[facility] LABCLIA [id number] [place] [address] [place] Triglyceride [Mass/Vol] 436 mg/dL High <150 [facility] Comment on above: Order Comment: Speci men Type: BLOOD SPECIMENOrdering Facility: [facility] Address: [address] [place] [address] Result Comment: <150 mg/dL, Normal 150-199 mg/dL, Borderline high 200-499 mg/dL, High >499 mg/dL, Very high Performed By: #### 1 8262-6, 80021-6, 61372-6, 57374-9 ####[facility] LABCLIA [id number] [place] [id number] [place] CNPNon 05-02-2024 CNPN Telephone (ENWSTR) CAMILA HARMON ([id number]) 1960 F Date Time Provider Department 05/02/24 KEEGAN JAIN ENWSTR During your visit today, we recorded the following information about you: Roxanne Swartz MA 05/02/2024 3:36 PM Signed Cover my Meds mosher [id number] completed. Approved 05/02/24 to 05/02/2025 Roxanne Swartz MA Allergies As of Date: 05/02/2024 Noted Allergy Reaction PENICILLINS 06/29/2005 4 - Hives PERCOCET (OXYCODONE-ACETAMINOPHE N)08/31/2007 8 - GI Upset TYLENOL-CODEINE ELIXIR 05/21/2010 14 - Other: See Comments Comments: halucinations Date Reviewed: 04/24/2024 Reviewed by: Frank Batista LPN - Fully Assessed Reason for Visit: Orders [681] Cmt: CATIE Robertson Prescriptions as of 05/02/2024 - evolocumab (REPATHA SURECLICK) 140 mg/mL pen injector Inject 140 mg subcutaneously every 2 weeks. - meclizine (ANTIVERT) 25 mg tab Take 1 tablet by mouth three times a day as needed. - atorvastatin (LIPITOR) 80 mg tablet Take 1 tablet by mouth daily at bedtime for cholesterol. - LORazepam (ATIVAN) 0.5 mg Take 2 tablets by mouth two times a day for 30 days. - hydrOXYzine HCl (ATARAX) 25 mg tablet Take 1 tablet by mouth every 6 hours as needed for anxiety. - glimepiride (AMARYL) 4 mg tablet Take 1 tablet by mouth two times a day with meals. - Fenofibrate 40 mg tab Take 1 tablet by mouth once daily. - PARoxetine (PAXIL) 40 mg tablet Take 1 tablet by mouth once daily. - pantoprazole DR (PROTONIX) 40 mg tablet Take 1 tablet by mouth daily before breakfast. Take on empty stomach, 1/2 hr before meal. - PARoxetine (PAXIL) 10 mg tablet Take 1 tablet by mouth once daily. Take along with Paxil 40 mg tablet - metFORMIN (GLUCOPHAGE) 500 mg tablet Take 1 tablet by mouth two times a day with meals. - empagliflozin (JARDIANCE) 25 mg tablet Take 1 tablet once daily in the morning - tirzepatide (MOUNJARO) 15 mg/0.5 mL pen injector Inject 15 mg subcutaneously one time a week. - cyanocobalamin (VITAMIN B-12) 1,000 mcg tab Take 1 tablet by mouth once daily. - cholecalciferol (VITAMIN D-3) 5,000 unit tab Take 1 tablet by mouth once daily. - esomeprazole (NEXIUM) 20 mg capsule Take 20 mg by mouth daily at 6 am. - Blood-Glucose Sensor ([employer] [place] G7 SENSOR) john CHANGE SENSOR EVERY 10 days USE FOR CONTINUOUS GLUCOSE MONITORING. E11.9 - ondansetron orally disintegrating (ZOFRAN ODT) 4 mg disintegrating tablet Take 1 tablet by mouth every 6 hours as needed for nausea/vomiting. - lisinopril (ZESTRIL) 20 mg tablet Take 1 tablet by mouth two times a day. - atenolol (TENORMIN) 100 mg tablet Take 1 tablet by mouth once daily. - gabapentin (NEURONTIN) 300 mg capsule Take 1 capsule by mouth two times a day for 180 days. - magnesium oxide (MAG-OX) 400 mg (241.3 mg magnesium) tablet Take 1 tablet by mouth two times a day. - nitroglycerin sublingual (NITROQUICK) 0.4 mg SL tablet Dissolve 1 tablet under the tongue as needed. FOR CHEST PAIN. IF NO RELIEF CALL 911 - blood sugar diagnostic (BLOOD GLUCOSE TEST) test strip Test blood sugar(s) one times daily. Dx: Type 2 DM - Uncontrolled Insulin: No - ezetimibe (ZETIA) 10 mg tablet Take 1 tablet by mouth once daily. - cyclobenzaprine (FLEXERIL) 10 mg tablet Take 1 tablet by mouth three times daily as needed for muscle spasm. - promethazine (PHENERGAN) 25 mg tablet Take 1 tablet by mouth every 6 hours as needed for nausea/vomiting. - busPIRone (BUSPAR) 15 mg tablet Take 1 tablet by mouth three times daily. - Blood-Glucose Meter Test blood sugar(s) 1 times daily. Dx: Type 2 DM - Uncontrolled Insulin: No - Lancets lancets Test blood sugar(s) 1 times daily. Dx: Type 2 DM - Uncontrolled Insulin: No - albuterol HFA (PROVENTIL HFA, VENTOLIN HFA) 90 mcg/actuation inhaler Inhale 2 Puffs as instructed every 4 hours as needed for wheezing/shortness of breath. - diclofenac (VOLTAREN) 1 % topical gel Apply 2 g to affected area four times daily. - Lancets lancets Test blood sugar(s) 1 times daily. Dx: E11.. Insulin: No - aspirin 81 mg chewable tablet Take 81 mg by mouth once daily. - Blood-Glucose Meter monitoring kit Glucose Meter of Choice - Kit - Dx: Type 2 DM - Uncontrolled - multivitamins(DAILY MULTIVITAMIN TAB) Take one(1) tablet daily. Meds Comments as of 11/08/2023: November 08, 2023: Patient reports starting Diflucan in the last 30 days. Janeth Jennings, KAUSHAL 08/22/2019: No longer taking metformin. Ghislaine Austin, RN (Nurse svp research & ebusiness operations). Also takes Paxil and a vitamin 1-1 S. KAUSHAL Bowman Problem List As Of Date 05/02/2024 Noted Resolved Routine gynecological examination [Z01.419] 07/27/2007 02/05/2017 Class: Chronic PERS HX PENICILLIN ALLERGY [Z88.0] 07/27/2007 Pure hypercholesterolemia [E78.00] Anxiety [F41.9] CLASS MIGRAIN W/O MENTN INTRACTABLE [G43.109] Diabetes mellitus, (more content not included)... Normal [facility] 05-01-2024 BETTY Telephone (SINDHU) CAMILA HARMON ([id number]) 1960 F Date Time Provider Department 05/01/24 HAWA PADRON During your visit today, we recorded the following information about you: Frank Batista LPN 05/01/2024 8:42 AM Signed [facility] Approval for Repatha, 04/27/24 - 04/27/25 Placed in PSS basket for scanning to chart Kristyn Carrasquillo 05/01/2024 3:53 PM Signed Scanned into patient chart Scan on 05/01/2024 3:53 PM by Kristyn Carrasquillo: Carval[facility] Approval for Repatha, Allergies As of Date: 05/01/2024 Noted Allergy Reaction PENICILLINS 06/29/2005 4 - Hives PERCOCET (OXYCODONE-ACETAMINOPHE N)08/31/2007 8 - GI Upset TYLENOL-CODEINE ELIXIR 05/21/2010 14 - Other: See Comments Comments: halucinations Date Reviewed: 04/24/2024 Reviewed by: Batista, Frank, PROCESS ARTIST - Fully Assessed Reason for Visit: Insurance Authorization [[id number]] Cmt: [facility] Approval for Repatha, 04/27/24 - 04/27/25 Prescriptions as of 05/01/2024 - evolocumab (REPATHA SURECLICK) 140 mg/mL pen injector Inject 140 mg subcutaneously every 2 weeks. - meclizine (ANTIVERT) 25 mg tab Take 1 tablet by mouth three times a day as needed. - atorvastatin (LIPITOR) 80 mg tablet Take 1 tablet by mouth daily at bedtime for cholesterol. - LORazepam (ATIVAN) 0.5 mg Take 2 tablets by mouth two times a day for 30 days. - hydrOXYzine HCl (ATARAX) 25 mg tablet Take 1 tablet by mouth every 6 hours as needed for anxiety. - glimepiride (AMARYL) 4 mg tablet Take 1 tablet by mouth two times a day with meals. - Fenofibrate 40 mg tab Take 1 tablet by mouth once daily. - PARoxetine (PAXIL) 40 mg tablet Take 1 tablet by mouth once daily. - pantoprazole DR (PROTONIX) 40 mg tablet Take 1 tablet by mouth daily before breakfast. Take on empty stomach, 1/2 hr before meal. - PARoxetine (PAXIL) 10 mg tablet Take 1 tablet by mouth once daily. Take along with Paxil 40 mg tablet - metFORMIN (GLUCOPHAGE) 500 mg tablet Take 1 tablet by mouth two times a day with meals. - empagliflozin (JARDIANCE) 25 mg tablet Take 1 tablet once daily in the morning - tirzepatide (MOUNJARO) 15 mg/0.5 mL pen injector Inject 15 mg subcutaneously one time a week. - cyanocobalamin (VITAMIN B-12) 1,000 mcg tab Take 1 tablet by mouth once daily. - cholecalciferol (VITAMIN D-3) 5,000 unit tab Take 1 tablet by mouth once daily. - esomeprazole (NEXIUM) 20 mg capsule Take 20 mg by mouth daily at 6 am. - Blood-Glucose Sensor ([employer] [place] G7 SENSOR) john CHANGE SENSOR EVERY 10 days USE FOR CONTINUOUS GLUCOSE MONITORING. E11.9 - ondansetron orally disintegrating (ZOFRAN ODT) 4 mg disintegrating tablet Take 1 tablet by mouth every 6 hours as needed for nausea/vomiting. - lisinopril (ZESTRIL) 20 mg tablet Take 1 tablet by mouth two times a day. - atenolol (TENORMIN) 100 mg tablet Take 1 tablet by mouth once daily. - gabapentin (NEURONTIN) 300 mg capsule Take 1 capsule by mouth two times a day for 180 days. - magnesium oxide (MAG-OX) 400 mg (241.3 mg magnesium) tablet Take 1 tablet by mouth two times a day. - nitroglycerin sublingual (NITROQUICK) 0.4 mg SL tablet Dissolve 1 tablet under the tongue as needed. FOR CHEST PAIN. IF NO RELIEF CALL 911 - blood sugar diagnostic (BLOOD GLUCOSE TEST) test strip Test blood sugar(s) one times daily. Dx: Type 2 DM - Uncontrolled Insulin: No - ezetimibe (ZETIA) 10 mg tablet Take 1 tablet by mouth once daily. - cyclobenzaprine (FLEXERIL) 10 mg tablet Take 1 tablet by mouth three times daily as needed for muscle spasm. - promethazine (PHENERGAN) 25 mg tablet Take 1 tablet by mouth every 6 hours as needed for nausea/vomiting. - busPIRone (BUSPAR) 15 mg tablet Take 1 tablet by mouth three times daily. - Blood-Glucose Meter Test blood sugar(s) 1 times daily. Dx: Type 2 DM - Uncontrolled Insulin: No - Lancets lancets Test blood sugar(s) 1 times daily. Dx: Type 2 DM - Uncontrolled . Insulin: No - albuterol HFA (PROVENTIL HFA, VENTOLIN HFA) 90 mcg/actuation inhaler Inhale 2 Puffs as instructed every 4 hours as needed for wheezing/shortness of breath. - diclofenac (VOLTAREN) 1 % topical gel Apply 2 g to affected area four times daily. - Lancets lancets Test blood sugar(s) 1 times daily. Dx: E11.65. Insulin: No - aspirin 81 mg chewable tablet Take 81 mg by mouth once daily. - Blood-Glucose Meter monitoring kit Glucose Meter of Choice - Kit - Dx: Type 2 DM - Uncontrolled - multivitamins(DAILY MULTIVITAMIN TAB) Take one(1) tablet daily. Meds Comments as of 11/08/2023: November 08, 2023: Patient reports starting Diflucan in the last 30 days. Janeth Jennings RN 08/22/2019: No longer taking metformin. Ghislaine Austin, RN (Nurse svp research & ebusiness operations). Also takes Paxil and a vitamin 1-1 Brianna Bowman RN Problem List As Of Date 05/01/2024 Noted Resolved Routine gynecological exam (more content not included)... Normal [facility] CNPNon 04-25-2024 CNPN Telephone (MNOPRX) CAMILA HARMON ([id number]) 1960 F Date Time Provider Department 04/25/24 LILLIANA BROOKS [facility] During your visit today, we recorded the following information about you: Lilliana Brooks RN 04/27/2024 4:40 PM Signed Ambulatory Pharmacy Prior Authorization Note Provider Intervention Required?: No - Pharmacy completed on your behalf. Was the PA documented within the ePA workqueue?: Yes View the status history of the prior authorization in the Auth Tab within Chart Review Additional Information: For questions relating to this submission, please contact [facility] at [phone] Allergies As of Date: 04/25/2024 Noted Allergy Reaction PENICILLINS 06/29/2005 4 - Hives PERCOCET (OXYCODONE-ACETAMINOPHE N)08/31/2007 8 - GI Upset TYLENOL-CODEINE ELIXIR 05/21/2010 14 - Other: See Comments Comments: halucinations Date Reviewed: 04/24/2024 Reviewed by: Frank Batista LPN - Fully Assessed Prescriptions as of 04/27/2024 - evolocumab (REPATHA SURECLICK) 140 mg/mL pen injector Inject 140 mg subcutaneously every 2 weeks. - meclizine (ANTIVERT) 25 mg tab Take 1 tablet by mouth three times a day as needed. - atorvastatin (LIPITOR) 80 mg tablet Take 1 tablet by mouth daily at bedtime for cholesterol. - LORazepam (ATIVAN) 0.5 mg Take 2 tablets by mouth two times a day for 30 days. - hydrOXYzine HCl (ATARAX) 25 mg tablet Take 1 tablet by mouth every 6 hours as needed for anxiety. - glimepiride (AMARYL) 4 mg tablet Take 1 tablet by mouth two times a day with meals. - Fenofibrate 40 mg tab Take 1 tablet by mouth once daily. - PARoxetine (PAXIL) 40 mg tablet Take 1 tablet by mouth once daily. - pantoprazole DR (PROTONIX) 40 mg tablet Take 1 tablet by mouth daily before breakfast. Take on empty stomach, 1/2 hr before meal. - PARoxetine (PAXIL) 10 mg tablet Take 1 tablet by mouth once daily. Take along with Paxil 40 mg tablet - metFORMIN (GLUCOPHAGE) 500 mg tablet Take 1 tablet by mouth two times a day with meals. - empagliflozin (JARDIANCE) 25 mg tablet Take 1 tablet once daily in the morning - tirzepatide (MOUNJARO) 15 mg/0.5 mL pen injector Inject 15 mg subcutaneously one time a week. - cyanocobalamin (VITAMIN B-12) 1,000 mcg tab Take 1 tablet by mouth once daily. - cholecalciferol (VITAMIN D-3) 5,000 unit tab Take 1 tablet by mouth once daily. - esomeprazole (NEXIUM) 20 mg capsule Take 20 mg by mouth daily at 6 am. - Blood-Glucose Sensor ([employer] G7 SENSOR) john CHANGE SENSOR EVERY 10 days USE FOR CONTINUOUS GLUCOSE MONITORING. E11.9 - ondansetron orally disintegrating (ZOFRAN ODT) 4 mg disintegrating tablet Take 1 tablet by mouth every 6 hours as needed for nausea/vomiting. - lisinopril (ZESTRIL) 20 mg tablet Take 1 tablet by mouth two times a day. - atenolol (TENORMIN) 100 mg tablet Take 1 tablet by mouth once daily. - gabapentin (NEURONTIN) 300 mg capsule Take 1 capsule by mouth two times a day for 180 days. - magnesium oxide (MAG-OX) 400 mg (241.3 mg magnesium) tablet Take 1 tablet by mouth two times a day. - nitroglycerin sublingual (NITROQUICK) 0.4 mg SL tablet Dissolve 1 tablet under the tongue as needed. FOR CHEST PAIN. IF NO RELIEF CALL 911 - blood sugar diagnostic (BLOOD GLUCOSE TEST) test strip Test blood sugar(s) one times daily. Dx: Type 2 DM - Uncontrolled E11.65 Insulin: No - ezetimibe (ZETIA) 10 mg tablet Take 1 tablet by mouth once daily. - cyclobenzaprine (FLEXERIL) 10 mg tablet Take 1 tablet by mouth three times daily as needed for muscle spasm. - promethazine (PHENERGAN) 25 mg tablet Take 1 tablet by mouth every 6 hours as needed for nausea/vomiting. - busPIRone (BUSPAR) 15 mg tablet Take 1 tablet by mouth three times daily. - Blood-Glucose Meter Test blood sugar(s) 1 times daily. Dx: Type 2 DM - Uncontrolled Insulin: No - Lancets lancets Test blood sugar(s) 1 times daily. Dx: Type 2 DM - Uncontrolled Insulin: No - albuterol HFA (PROVENTIL HFA, VENTOLIN HFA) 90 mcg/actuation inhaler Inhale 2 Puffs as instructed every 4 hours as needed for wheezing/shortness of breath. - diclofenac (VOLTAREN) 1 % topical gel Apply 2 g to affected area four times daily. - Lancets lancets Test blood sugar(s) 1 times daily. Dx: E11.65. Insulin: No - aspirin 81 mg chewable tablet Take 81 mg by mouth once daily. - Blood-Glucose Meter monitoring kit Glucose Meter of Choice - Kit - Dx: Type 2 DM - Uncontrolled - multivitamins(DAILY MULTIVITAMIN TAB) Take one(1) tablet daily. Meds Comments as of 11/08/2023: November 08, 2023: Patient reports starting Diflucan in the last 30 days. Janeth Jennings RN 08/22/2019: No longer taking metformin. Ghislaine Austin RN (Nurse svp research & ebusiness operations). Also takes Paxil and a vitamin 1-1 SJesus Bowman RN Problem List As Of Date 04/25/2024 Noted Resolved Ro (more content not included)... Normal [facility] CNCOon 04-24-2024 CNCO Letter Text Normal [facility] CNOVon 04-24-2024 CNOV Office Visit (CARDMM ) CAMILA HARMON ([id number]) 1960 F Date Time Provider Department 04/24/24 9:40 AM HAWA PADRON During your visit today, we recorded the following information about you: Pulse Blood pressure Height 78/minute 136/64 1.53 m Hawa Padron MD 04/24/2024 11:39 AM Signed [facility] SECTION OF REGIONAL CARDIOLOGY OUTPATIENT VISIT DATE 04/24/24 OUTPATIENT VISIT TYPE ESTABLISHED PRIMARY CARE PHYSICIAN: Emily Wang [address] [place] [address] HISTORY OF PRESENT ILLNESS: Ms. Harmon is a 63 year old female, history of hypertension, hyperlipidemia, family history of premature CAD, CAD s/p PCI in 2010 and 2008, 1-2+, TR, FLOR, DM, presents for follow-up visit. Previously seen by Dr. Nash 10/21/2022, more recently seen by me in 12/2023. Cath 02/11/22: patent stents in the proximal to mid LAD with mild in-stent restenosis. Bifurcation stenting into the first large diagonal branch with an ostial 50-60% in-stent restenosis. Otherwise mild diffuse disease. Normal LVEDP. The LAD and left circumflex nearly arise from separate ostia. At her last visit, she reported experiencing SOB with lifting heavy palettes. She had an episode of chest pain 3 months prior to her last visit while lifting palettes and had to take a sl nitro. She also reported intermittent chest pain and SOB at the last visit. Cardiac testing were ordered, results of which are summarized below and mycharted to her. No recurrences since then. PAST MEDICAL HISTORY Diagnosis Date Coronary artery disease Depressive disorder, not elsewhere classified Enlarged liver Excessive or frequent menstruation 07/06/2004 s/p TVH Migraine with aura, without mention of intractable migraine without mention of status migrainosus Other anxiety states Pure hypercholesterolemia S/P primary angioplasty with coronary stent 11/06/2008 Type II or unspecified type diabetes mellitus without mention of complication, not stated as uncontrolled PAST SURGICAL HISTORY Procedure Laterality Date CARPAL TUNNEL Bilateral 03/05/2017 COLONOSCOPY FLX DX W/COLLJ SPEC WHEN PFRMD 07/19/2013 Colonoscopy EXTRACTION, ERUPTED TOOTH OR EXPOSED ROOT (ELEVATION AND/OR FORCEPS REMOVAL) wisdom teeth HEART CATHETERIZATION N/A 02/11/2022 HYSTERECTOMY HX PAST SURGICAL HISTORY OF 02/22/2002 BREAST REDUCTION PAST SURGICAL HISTORY OF 2008, 2011 stent, LAD X2. VAGINAL HYSTERECTOMY UTERUS 250 GM/< 07/2004 Hysterectomy, vaginal Social History Tobacco Use Smoking status: Former Current packs/day: 0.00 Types: Cigarettes Start date: 06/02/2017 Quit date: 06/02/2020 Years since quittin.8 Smokeless tobacco: Never Tobacco comments: social smoking for 3 years. Occasional smoking when upset Vaping Use Vaping status: Never Used Substance Use Topics Alcohol use: Yes Comment: Socially Drug use: No FAMILY HISTORY Problem Relation Age of Onset Hypertension Mother Diabetes Mother Heart Mother [place], age 72; first dx age late 60's Lipids Mother Stroke Mother Blindness Mother Hypertension Father Lipids Father Diabetes Father ALLERGIES Allergen Reactions Penicillins Hives Percocet [Oxycodone* GI Upset Tylenol-Codeine Prerna* Other: See Comments halucinations CURRENT MEDICATIONS: meclizine (ANTIVERT) 25 mg tab Take 1 tablet by mouth three times a day as needed. atorvastatin (LIPITOR) 80 mg tablet Take 1 tablet by mouth daily at bedtime for cholesterol. LORazepam (ATIVAN) 0.5 mg Take 2 tablets by mouth two times a day for 30 days. hydrOXYzine HCl (ATARAX) 25 mg tablet Take 1 tablet by mouth every 6 hours as needed for anxiety. glimepiride (AMARYL) 4 mg tablet Take 1 tablet by mouth two times a day with meals. Fenofibrate 40 mg tab Take 1 tablet by mouth once daily. PARoxetine (PAXIL) 40 mg tablet Take 1 tablet by mouth once daily. pantoprazole DR (PROTONIX) 40 mg tablet Take 1 tablet by mouth daily before breakfast. Take on empty stomach, 1/2 hr before meal. PARoxetine (PAXIL) 10 mg tablet Take 1 tablet by mouth once daily. Take along with Paxil 40 mg tablet metFORMIN (GLUCOPHAGE) 500 mg tablet Take 1 tablet by mouth two times a day with meals. empagliflozin (JARDIANCE) 25 mg tablet Take 1 tablet once daily in the morning tirzepatide (MOUNJARO) 15 mg/0.5 mL pen injector Inject 15 mg subcutaneously one time a week. cyanocobalamin (VITAMIN B-12) 1,000 mcg tab Take 1 tablet by mouth once daily. cholecalciferol (VITAMIN D-3) 5,000 unit tab Take 1 tablet by mouth once daily. esomeprazole (NEXIUM) 20 mg capsule Take 20 mg by mouth daily at 6 am. Blood-Glucose Sensor ([employer] G7 SENSOR) john CHANGE SENSOR EVERY 10 days USE FOR CONTINUOUS GLUCOSE MONITORING. E11.9 (Patient not taking: Reported on 02/05 (more content not included)... Normal [facility] CNPNon 04-11-2024 [facility] Telephone (FAMPWS) CAMILA HARMON ([id number]) 1960 F Date Time Provider Department 04/11/24 EMILY WANG [facility] During your visit today, we recorded the following information about you: Edith Chavira MA 04/11/2024 3:52 PM Addendum Pt here with spouse today for his visit. Asking if PCP could Rx Diflucan for a yeast infection that she's been dealing with for the past month. Requesting Rx to go to [facility]. DIGNA Morejon Mark D, MD 04/11/2024 3:57 PM Signed Done Emily Wang MD Allergies As of Date: 04/11/2024 Noted Allergy Reaction PENICILLINS 06/29/2005 4 - Hives PERCOCET (OXYCODONE-ACETAMINOPHE N)08/31/2007 8 - GI Upset TYLENOL-CODEINE ELIXIR 05/21/2010 14 - Other: See Comments Comments: halucinations Date Reviewed: 02/16/2024 Reviewed by: Nargis Reynaga LPN - Fully Assessed Reason for Visit: Patient Question [3087] Order(s):fluconazole (DIFLUCAN) 150 mg tabletTake 1 tablet by mouth one time only for 1 dose. Repeat in 3 days if neededDisp: 2 tabletRfl: 0 Prescriptions as of 04/11/2024 - fluconazole (DIFLUCAN) 150 mg tablet Take 1 tablet by mouth one time only for 1 dose. Repeat in 3 days if needed - meclizine (ANTIVERT) 25 mg tab Take 1 tablet by mouth three times a day as needed. - atorvastatin (LIPITOR) 80 mg tablet Take 1 tablet by mouth daily at bedtime for cholesterol. - LORazepam (ATIVAN) 0.5 mg Take 2 tablets by mouth two times a day for 30 days. - hydrOXYzine HCl (ATARAX) 25 mg tablet Take 1 tablet by mouth every 6 hours as needed for anxiety. - glimepiride (AMARYL) 4 mg tablet Take 1 tablet by mouth two times a day with meals. - Fenofibrate 40 mg tab Take 1 tablet by mouth once daily. - PARoxetine (PAXIL) 40 mg tablet Take 1 tablet by mouth once daily. - pantoprazole DR (PROTONIX) 40 mg tablet Take 1 tablet by mouth daily before breakfast. Take on empty stomach, 1/2 hr before meal. - PARoxetine (PAXIL) 10 mg tablet Take 1 tablet by mouth once daily. Take along with Paxil 40 mg tablet - metFORMIN (GLUCOPHAGE) 500 mg tablet Take 1 tablet by mouth two times a day with meals. - empagliflozin (JARDIANCE) 25 mg tablet Take 1 tablet once daily in the morning - tirzepatide (MOUNJARO) 15 mg/0.5 mL pen injector Inject 15 mg subcutaneously one time a week. - cyanocobalamin (VITAMIN B-12) 1,000 mcg tab Take 1 tablet by mouth once daily. - cholecalciferol (VITAMIN D-3) 5,000 unit tab Take 1 tablet by mouth once daily. - esomeprazole (NEXIUM) 20 mg capsule Take 20 mg by mouth daily at 6 am. - Blood-Glucose Sensor ([employer] [place] G7 SENSOR) john CHANGE SENSOR EVERY 10 days USE FOR CONTINUOUS GLUCOSE MONITORING. E11.9 - ondansetron orally disintegrating (ZOFRAN ODT) 4 mg disintegrating tablet Take 1 tablet by mouth every 6 hours as needed for nausea/vomiting. - lisinopril (ZESTRIL) 20 mg tablet Take 1 tablet by mouth two times a day. - atenolol (TENORMIN) 100 mg tablet Take 1 tablet by mouth once daily. - gabapentin (NEURONTIN) 300 mg capsule Take 1 capsule by mouth two times a day for 180 days. - magnesium oxide (MAG-OX) 400 mg (241.3 mg magnesium) tablet Take 1 tablet by mouth two times a day. - nitroglycerin sublingual (NITROQUICK) 0.4 mg SL tablet Dissolve 1 tablet under the tongue as needed. FOR CHEST PAIN. IF NO RELIEF CALL 911 - blood sugar diagnostic (BLOOD GLUCOSE TEST) test strip Test blood sugar(s) one times daily. Dx: Type 2 DM - Uncontrolled Insulin: No - ezetimibe (ZETIA) 10 mg tablet Take 1 tablet by mouth once daily. - cyclobenzaprine (FLEXERIL) 10 mg tablet Take 1 tablet by mouth three times daily as needed for muscle spasm. - promethazine (PHENERGAN) 25 mg tablet Take 1 tablet by mouth every 6 hours as needed for nausea/vomiting. - busPIRone (BUSPAR) 15 mg tablet Take 1 tablet by mouth three times daily. - Blood-Glucose Meter Test blood sugar(s) 1 times daily. Dx: Type 2 DM - Uncontrolled Insulin: No - Lancets lancets Test blood sugar(s) 1 times daily. Dx: Type 2 DM - Uncontrolled Insulin: No - albuterol HFA (PROVENTIL HFA, VENTOLIN HFA) 90 mcg/actuation inhaler Inhale 2 Puffs as instructed every 4 hours as needed for wheezing/shortness of breath. - diclofenac (VOLTAREN) 1 % topical gel Apply 2 g to affected area four times daily. - Lancets lancets Test blood sugar(s) 1 times daily. Dx: E11.65. Insulin: No - aspirin 81 mg chewable tablet Take 81 mg by mouth once daily. - Blood-Glucose Meter monitoring kit Glucose Meter of Choice - Kit - Dx: Type 2 DM - Uncontrolled - multivitamins(DAILY MULTIVITAMIN TAB) Take one(1) tablet daily. Meds Comments as of 11/08/2023: November 08, 2023: Patient reports starting Diflucan in the last 30 days. Janeth Jennings RN 08/22/2019: No longer taking metformin. Ghislaine Austin RN (Nurse svp research & ebusiness operations). Also takes Paxil and a (more content not included)... Normal [facility] CNOVon 02-16-2024 CNOV Office Visit (FAMPWS ) ERICKCAMILA WILLARD ([id number]) 1960 F Date Time Provider Department 02/16/24 5:00 PM [facility] During your visit today, we recorded the following information about you: Pulse Respiration Blood pressure Weight 74/minute 16/minute 130/68 88.7 kg Height 1.53 m Aileen Quintanilla APRN.CNP 02/16/2024 6:59 PM Signed This is a 63 year old female who presents today with: Patient presents with: Wellness HISTORY OF PRESENT ILLNESS: Camila Ross Faustino is a 63 year old female. Patient presents with: Wellness Here in the office for wellness Diet: Working on eating a low carb diet. Exercise: Staying active at work, but no regimen. Vision: Due for exam. Dental: Had exam. Sleep: 8 hours per night. Mood: See below DM2: Follows with endocrinology, has not been keeping track of sugars. Has Dexcom 7 monitor. Working on eating a low carb diet. Still taking metformin 500 mg twice daily, glimepiride 4 mg twice daily, Jardiance 25 mg daily, and Mounjaro 15 mg weekly. A1c went from 10.4 to 7.9. Needs to schedule follow up with Endo. Mood: Currently taking Paxil 50 mg daily, BuSpar 15 mg 3 times daily, and Ativan 0.5 mg, 2 tablets twice daily. No showed [facility] psychiatry. Needs to reschedule. 2 year anniversary of daughter passing. Going to grief support once per month. Not currently seeing counseling. HTN/CAD: Taking lisinopril 20 mg and atenolol 100 mg daily, baby aspirin 81 mg daily. Not currently checking blood pressure at home. With cardiology, . Had stents placed in the past. Hyperlipidemia: Triglycerides elevated. Taking Lipitor 80 mg daily. Zetia 10 mg daily, fenofibrate 40 mg daily. GERD: Taking Nexium 20 mg daily. present for exam. Mammogram: Due at this time. Colonoscopy: Past due Vaccines: Would like COVID and flu vaccines. Due for Dtap PAST MEDICAL HISTORY: PAST MEDICAL HISTORY Diagnosis Date Coronary artery disease Depressive disorder, not elsewhere classified Enlarged liver Excessive or frequent menstruation 07/06/2004 s/p TVH Migraine with aura, without mention of intractable migraine without mention of status migrainosus Other anxiety states Pure hypercholesterolemia S/P primary angioplasty with coronary stent 11/06/2008 Type II or unspecified type diabetes mellitus without mention of complication, not stated as uncontrolled PAST SURGICAL HISTORY Procedure Laterality Date CARPAL TUNNEL Bilateral 03/05/2017 COLONOSCOPY FLX DX W/COLLJ SPEC WHEN PFRMD 07/19/2013 Colonoscopy EXTRACTION, ERUPTED TOOTH OR EXPOSED ROOT (ELEVATION AND/OR FORCEPS REMOVAL) wisdom teeth HEART CATHETERIZATION N/A 02/11/2022 HYSTERECTOMY HX PAST SURGICAL HISTORY OF 02/22/2002 BREAST REDUCTION PAST SURGICAL HISTORY OF 2008, 2011 stent, LAD X2. VAGINAL HYSTERECTOMY UTERUS 250 GM/< 07/2004 Hysterectomy, vaginal ALLERGIES Penicillins, Percocet [Oxycodone-Acetaminophe n], and Tylenol-Codeine Elixir MEDICATIONS Current Outpatient Medications Medication Sig LORazepam (ATIVAN) 0.5 mg Take 2 tablets by mouth two times a day for 30 days. glimepiride (AMARYL) 4 mg tablet Take 1 tablet by mouth two times a day with meals. Fenofibrate 40 mg tab Take 1 tablet by mouth once daily. PARoxetine (PAXIL) 40 mg tablet Take 1 tablet by mouth once daily. pantoprazole DR (PROTONIX) 40 mg tablet Take 1 tablet by mouth daily before breakfast. Take on empty stomach, 1/2 hr before meal. PARoxetine (PAXIL) 10 mg tablet Take 1 tablet by mouth once daily. Take along with Paxil 40 mg tablet metFORMIN (GLUCOPHAGE) 500 mg tablet Take 1 tablet by mouth two times a day with meals. empagliflozin (JARDIANCE) 25 mg tablet Take 1 tablet once daily in the morning tirzepatide (MOUNJARO) 15 mg/0.5 mL pen injector Inject 15 mg subcutaneously one time a week. cyanocobalamin (VITAMIN B-12) 1,000 mcg tab Take 1 tablet by mouth once daily. cholecalciferol (VITAMIN D-3) 5,000 unit tab Take 1 tablet by mouth once daily. esomeprazole (NEXIUM) 20 mg capsule Take 20 mg by mouth daily at 6 am. Blood-Glucose Sensor ([employer] G7 SENSOR) john CHANGE SENSOR EVERY 10 days USE FOR CONTINUOUS GLUCOSE MONITORING. E11.9 ondansetron orally disintegrating (ZOFRAN ODT) 4 mg disintegrating tablet Take 1 tablet by mouth every 6 hours as needed for nausea/vomiting. lisinopril (ZESTRIL) 20 mg tablet Take 1 tablet by mouth two times a day. atorvastatin (LIPITOR) 80 mg tablet Take 1 tablet by mouth daily at bedtime for cholesterol. atenolol (TENORMIN) 100 mg tablet Take 1 tablet by mouth once daily. gabapentin (NEURONTIN) 300 mg capsule Take 1 capsule by mouth two times a day for 180 days. magnesium oxide (MAG-OX) 400 mg (241.3 mg magnesium) tablet Take 1 tablet by mouth two times a day. nitroglycerin sublingual (NITROQUICK) 0.4 mg SL tablet Dissolve 1 tablet under th (more content not included)... Normal [facility] Bilirub Conj SerPl-mCncon Bilirubin.conjugated [Mass/Vol] mg/dL Normal <0.2 [facility] Comment on above: Order Comment: Speci men Type: BLOOD SPECIMENOrdering Facility: [facility] Address: [address] [place] [address] Performed By: #### 2 4323-8, 27977-7, 2156-08, 61604-4 ####[facility] LABCLIA [id number] [address] [address] [place] CK SerPl-cCncon 02-15-2024 CK [Catalytic activity/Vol] 69 U/L Normal 42-196 [facility] Comment on above: Order Comment: Speci men Type: BLOOD SPECIMENOrdering Facility: [facility] Address: [address] [place] [address] Performed By: #### 2 4323-8, 27963-1, 2156-08, 70187-7 ####[facility] LABCLIA [id number] [address] [address] [place] Comprehensive metabolic 2000 panelon 02-15-2024 Albumin [Mass/Vol] 4.3 g/dL Normal 3.9-4.9 [facility] Comment on above: Order Comment: Speci men Type: BLOOD SPECIMENOrdering Facility: [facility] Address: [address] [place] [address] Performed By: #### 2 4323-8, 88494-4, 2156-08, 54199-4 ####[facility] LABIA [id number] [place] [address] [place] ALP [Catalytic activity/Vol] 89 U/L Normal 34-123 [facility] Comment on above: Order Comment: Speci men Type: BLOOD SPECIMENOrdering Facility: [facility] Address: [address] [place] [address] Performed By: #### 2 4323-8, 23392-8, 2156-08, 76828-2 ####[facility] LABIA [id number] [place] [id number] [place] ALT [Catalytic activity/Vol] 23 U/L Normal 7-38 [facility] Comment on above: Order Comment: Speci men Type: BLOOD SPECIMENOrdering Facility: [facility] Address: [address] [place] [address] Performed By: #### 2 4323-8, 93587-4, 2156-08, 69415-3 ####[facility] LABIA [id number] [place] [id number] [place] Anion gap [Moles/Vol] 13 mmol/L Normal 8-15 [facility] Comment on above: Order Comment: Speci men Type: BLOOD SPECIMENOrdering Facility: [facility] Address: [address] [place] [address] Performed By: #### 2 4323-8, 42394-2, 2156-08, 97404-1 ####[facility] LABCLIA [id number] [address] [address] [place] AST [Catalytic activity/Vol] 15 U/L Normal 13-35 [facility] Comment on above: Order Comment: Speci men Type: BLOOD SPECIMENOrdering Facility: [facility] Address: [address] [place] [address] Performed By: #### 2 4323-8, 48838-4, 2156-08, 76619-7 ####[facility] LABIA [id number] [place] [id number] [place] Bilirubin [Mass/Vol] 0.8 mg/dL Normal 0.2-1.3 [facility] Comment on above: Order Comment: Speci men Type: BLOOD SPECIMENOrdering Facility: [facility] Address: [address] [place] [address] Performed By: #### 2 4323-8, 68429-6, 2156-08, 74116-3 ####[facility] LABIA [id number] [place] [id number] [place] Calcium [Mass/Vol] 9.3 mg/dL Normal 8.5-10.2 [facility] Comment on above: Order Comment: Speci men Type: BLOOD SPECIMENOrdering Facility: [facility] Address: [address] [place], [place] [address] Performed By: #### 2 4323-8, 48965-3, 2156-08, 12691-5 ####[facility] LABIA [id number] [place] [id number] [place] Chloride [Moles/Vol] 104 mmol/L Normal 98-107 [facility] Comment on above: Order Comment: Speci men Type: BLOOD SPECIMENOrdering Facility: [facility] Address: [address] [place] [address] Performed By: #### 2 4323-8, 02840-4, 2156-08, 37770-2 ####[facility] LABCLIA [id number] [place] [id number] [place] CO2 [Moles/Vol] 22 mmol/L Normal 22-30 [facility] Comment on above: Order Comment: Speci men Type: BLOOD SPECIMENOrdering Facility: [facility] Address: [address] [place] [address] Performed By: #### 2 4323-8, 63887-0, 2156-08, ####[facility] LABCLIA [id number] [place] [address] [place] Creatinine [Mass/Vol] 0.73 mg/dL Normal 0.58-0.96 [facility] Comment on above: Order Comment: Speci men Type: BLOOD SPECIMENOrdering Facility: [facility] Address: [address] [place] [address] Performed By: #### 2 4323-8, 67112-4, 2156-08, ####[facility] LABIA [id number] [place] [address] [place] Creatinine and Glomerular filtration rate.predicted panel (S/P/Bld) 94 mL/min/1.73m??? Normal >=60 [facility] Comment on above: Order Comment: Speci men Type: BLOOD SPECIMENOrdering Facility: [facility] Address: [address] [place] [address] Result Comment: Gin mated Glomerular Filtration Rate (eGFR) is calculated using the 2020 CKD-EPI creatinine equation. This equation utilizes serum creatinine, sex, and age as parameters. The creatinine assay has traceable calibration to isotope dilution-mass spectrometry. Refer to KDIGO guidelines for clinical interpretation. In patients with unstable renal function, e.g. those with acute kidney injury, the eGFR may not accurately reflect actual GFR. Performed By: #### 2 4323-8, 34743-7, 2156-08, 49250-9 ####[facility] LABCLIA [id number] [place] [id number] [place] Glucose [Mass/Vol] 292 mg/dL High 74-99 [facility] Comment on above: Order Comment: Speci men Type: BLOOD SPECIMENOrdering Facility: [facility] Address: [address] [place] [address] Result Comment: The [place] Diabetes Association (ADA) provides guidance for cutoff values for fasting glucose and random glucose. The ADA defines fasting as no caloric intake for at least 8 hours. Fasting plasma glucose results between 100 to 125 mg/dL indicate increased risk for diabetes (prediabetes). Fasting plasma glucose results greater than or equal to 126 mg/dL meet the criteria for diagnosis of diabetes. In the absence of unequivocal hyperglycemia, results should be confirmed by repeat testing. In a patient with classic symptoms of hyperglycemia or hyperglycemic crisis, random plasma glucose results greater than or equal to 200 mg/dL meet the criteria for diagnosis of diabetes. Reference: Standards of Medical Care in Diabetes 2016, [place] Diabetes Association. Diabetes Care. 2016.39(Suppl 1). Performed By: #### 2 4323-8, 38548-6, 2157-6, 93269-4 ####[facility] LABCLIA [id number] [place] [address] [place] Potassium [Moles/Vol] 4.4 mmol/L Normal 3.7-5.1 [facility] Comment on above: Order Comment: Speci men Type: BLOOD SPECIMENOrdering Facility: [facility] Address: [address] [place] [address] Performed By: #### 2 4323-8, 49642-2, 2157-6, 74640-4 ####[facility] LABCLIA [id number] [place] [address] [place] Protein [Mass/Vol] 6.9 g/dL Normal 6.3-8.0 [facility] Comment on above: Order Comment: Speci men Type: BLOOD SPECIMENOrdering Facility: [facility] Address: [address] [place] [address] Performed By: #### 2 4323-8, 48723-9, 2156-08, 65251-8 ####[facility] LABCLIA [id number] [place] [id number] [place] Sodium [Moles/Vol] 139 mmol/L Normal 136-144 [facility] Comment on above: Order Comment: Speci men Type: BLOOD SPECIMENOrdering Facility: [facility] Address: [address] [place] [address] Performed By: #### 2 4323-8, 90647-5, 2156-08, 63947-7 ####[facility] LABIA [id number] [place] [address] [place] Urea nitrogen [Mass/Vol] 25 mg/dL High 7-21 [facility] Comment on above: Order Comment: Speci men Type: BLOOD SPECIMENOrdering Facility: [facility] Address: [address] [place] [address] Performed By: #### 2 4323-8, 16663-1, 2156-08, 11006-2 ####[facility] LABIA [id number] [place] [address] [place] HbA1c (Bld)on 02-15-2024 Average glucose Estimated from glycated hemoglobin (Bld) [Mass/Vol] 180 mg/dL Normal [facility] Comment on above: Order Comment: Speci men Type: BLOOD SPECIMENOrdering Facility: [facility] Address: [address] [place] [address] Result Comment: eAG: (Estimated average glucose) is a calculated value from HgbA1c and is abrasives sales representative of the average blood glucose level in the last 2-3 month period. Performed By: #### 5 5454-3 ####[facility] LABIA [id number] [place] [address] [place] HbA1c (Bld) [Mass fraction] 7.9 % High 4.3-5.6 [facility] Comment on above: Order Comment: Speci men Type: BLOOD SPECIMENOrdering Facility: [facility] Address: [address] [place] [address] Result Comment: [place] Diabetes Association guidelines indicate that patients with HgbA1c in the range 5.7-6.4% are at increased risk for development of diabetes, and intervention by lifestyle modification may be beneficial. HgbA1c greater or equal to 6.5% is considered diagnostic of diabetes. Performed By: #### 5 5454-3 ####[facility] LABCLIA [id number] [place] [address] [place] Lipid 1996 panelon 4 Cholesterol [Mass/Vol] 164 mg/dL Normal <200 [facility] Comment on above: Order Comment: Speci men Type: BLOOD SPECIMENOrdering Facility: [facility] Address: [address] [place] [address] Result Comment: <200 mg/dL, Desirable 200-239 mg/dL, Borderline high >239 mg/dL, High Performed By: #### 2 4323-8, 39420-7, 2156-08, 46291-4 ####[facility] LABCLIA [id number] [address] [place] Cholesterol in HDL [Mass/Vol] 34 mg/dL Low >39 [facility] Comment on above: Order Comment: Luke viera Type: BLOOD SPECIMENOrdering Facility: [facility] Address: [address] [place] [address] Result Comment: 40-5 9 mg/dL, Acceptable >59 mg/dL, High: Negative risk factor for coronary heart disease <40 mg/dL, Low: Positive risk factor for coronary heart disease Performed By: #### 2 4323-8, 67634-9, 2156-, 58034-9 ####[facility] LABCLIA [id number] [address] [place] Cholesterol in LDL [Mass/Vol] 75 mg/dL Normal <100 [facility] Comment on above: Order Comment: Speci men Type: BLOOD SPECIMENOrdering Facility: [facility] Address: [address] [place] [address] Result Comment: <100 mg/dL, Optimal 100-129 mg/dL, Near optimal/above optimal 130-159 mg/dL, Borderline high 160-189 mg/dL, High >189 mg/dL, Very high Secondary prevention optimal LDL Cholesterol levels are recommended to be < 70 mg/dL Performed By: #### 2 4323-8, 22144-4, 2156-08, 15467-5 ####[facility] LABCLIA [id number] [place] [address] [place] Cholesterol in LDL/Cholesterol in HDL [Mass ratio] 2.21 {ratio} Normal <2.54 [facility] Comment on above: Order Comment: Luke viera Type: BLOOD SPECIMENOrdering Facility: [facility] Address: [address] [place] [address] Result Comment: Refe rence: 1. National Cholesterol Education Program ATP III Guideline At-A-Glance Quick Desk Reference: National Heart, Lung, and Blood [place]. National Institutes of Health. 2001: NIH Publication No. 01-3305. 2. An International Atherosclerosis Society position paper: global recommendations for the management of dyslipidemia: executive summary, Atherosclerosis. 2014: 232(2):410-413. Performed By: #### 2 4323-8, 31329-4, 2156-08, 90325-9 ####[facility] LABCLIA [id number] [place] [address] [place] Cholesterol in VLDL [Mass/Vol] 55 mg/dL High <30 [facility] Comment on above: Order Comment: Luke viera Type: BLOOD SPECIMENOrdering Facility: [facility] Address: [address] [place] [address] Performed By: #### 2 4323-8, 04176-0, 2156-08, 80841-3 ####[facility] LABCLIA [id number] [place] [address] [place] Cholesterol non HDL [Mass/Vol] 130 mg/dL High <130 [facility] Comment on above: Order Comment: Speci men Type: BLOOD SPECIMENOrdering Facility: [facility] Address: [address] [place] [address] Result Comment: <130 mg/dL, Optimal 130-159 mg/dL, Near optimal/above optimal 160-189 mg/dL, Borderline high 190-219 mg/dL, High >219 mg/dL, Very high Secondary prevention optimal non HDL Cholesterol levels are recommended to be <100 mg/dL Performed By: #### 2 4323-8, 30352-3, 2156-08, 28652-9 ####[facility] LABCLIA [id number] [place] [address] [place] Cholesterol.total/Ch olesterol in HDL [Mass ratio] 4.82 {ratio} Normal <5.10 [facility] Comment on above: Order Comment: Speci men Type: BLOOD SPECIMENOrdering Facility: [facility] Address: [address] [place] [address] Performed By: #### 2 4323-8, 06577-7, 2156-08, 01226-3 ####[facility] LABIA [id number] [place] [address] [place] FASTING TIME 12 hrs Normal [facility] Comment on above: Order Comment: Speci men Type: BLOOD SPECIMENOrdering Facility: [facility] Address: [address] [place] [address] Performed By: #### 2 4323-8, 27178-1, 2156-08, 68906-6 ####[facility] LABIA [id number] [place] [id number] [place] Triglyceride [Mass/Vol] 275 mg/dL High <150 [facility] Comment on above: Order Comment: Speci men Type: BLOOD SPECIMENOrdering Facility: [facility] Address: [address] [place] [address] Result Comment: <150 mg/dL, Normal 150-199 mg/dL, Borderline high 200-499 mg/dL, High >499 mg/dL, Very high Performed By: #### 2 4323-8, 21925-6, 2157-6, 37437-3 ####[facility] LABHAYDE [id number] [address] STATES OF [facility] CNPYesy 02-14-20[facility] CAMILA HARMON ([id number]) 1960 F Date Time Provider Department 02/14/24 AILEEN QUINTANILLA [facility] During your visit today, we recorded the following information about you: Nargis Reynaga LPN 02/14/2024 11:27 AM Signed TC to pt. Left a detailed message on a secure line for Pt to get labs completed before appt on Wed. Nargis Reynaga LPN Allergies As of Date: 02/14/2024 Noted Allergy Reaction PENICILLINS 06/29/2005 4 - Hives PERCOCET (OXYCODONE-ACETAMINOPHE N)08/31/2007 8 - GI Upset TYLENOL-CODEINE ELIXIR 05/21/2010 14 - Other: See Comments Comments: halucinations Date Reviewed: 12/23/2023 Reviewed by: Ирина [place], RN - Fully Assessed Prescriptions as of 07/05/2024 - hydrOXYzine HCl (ATARAX) 25 mg tablet Take 1 tablet by mouth every 6 hours as needed for anxiety. - gabapentin (NEURONTIN) 300 mg capsule Take 1 capsule by mouth two times a day for 180 days. - LORazepam (ATIVAN) 0.5 mg Take 2 tablets by mouth two times a day for 30 days. - cyclobenzaprine (FLEXERIL) 10 mg tablet Take 1 tablet by mouth three times a day as needed for muscle spasm. - atenolol (TENORMIN) 100 mg tablet Take 1 tablet by mouth once daily. - lisinopril (ZESTRIL) 20 mg tablet Take 1 tablet by mouth two times a day. - pantoprazole DR (PROTONIX) 40 mg tablet Take 1 tablet by mouth daily before breakfast. Take on empty stomach, 1/2 hr before meal. - PARoxetine (PAXIL) 10 mg tablet Take 1 tablet by mouth once daily. Take along with Paxil 40 mg tablet - PARoxetine (PAXIL) 40 mg tablet Take 1 tablet by mouth once daily. - evolocumab (REPATHA SURECLICK) 140 mg/mL pen injector Inject 140 mg subcutaneously every 2 weeks. - meclizine (ANTIVERT) 25 mg tab Take 1 tablet by mouth three times a day as needed. - atorvastatin (LIPITOR) 80 mg tablet Take 1 tablet by mouth daily at bedtime for cholesterol. - glimepiride (AMARYL) 4 mg tablet Take 1 tablet by mouth two times a day with meals. - Fenofibrate 40 mg tab Take 1 tablet by mouth once daily. - metFORMIN (GLUCOPHAGE) 500 mg tablet Take 1 tablet by mouth two times a day with meals. - empagliflozin (JARDIANCE) 25 mg tablet Take 1 tablet once daily in the morning - tirzepatide (MOUNJARO) 15 mg/0.5 mL pen injector Inject 15 mg subcutaneously one time a week. - cyanocobalamin (VITAMIN B-12) 1,000 mcg tab Take 1 tablet by mouth once daily. - cholecalciferol (VITAMIN D-3) 5,000 unit tab Take 1 tablet by mouth once daily. - Blood-Glucose Sensor ([employer] [place] G7 SENSOR) john CHANGE SENSOR EVERY 10 days USE FOR CONTINUOUS GLUCOSE MONITORING. E11.9 - magnesium oxide (MAG-OX) 400 mg (241.3 mg magnesium) tablet Take 1 tablet by mouth two times a day. - nitroglycerin sublingual (NITROQUICK) 0.4 mg SL tablet Dissolve 1 tablet under the tongue as needed. FOR CHEST PAIN. IF NO RELIEF CALL 911 - blood sugar diagnostic (BLOOD GLUCOSE TEST) test strip Test blood sugar(s) one times daily. Dx: Type 2 DM - Uncontrolled E11.65 Insulin: No - ezetimibe (ZETIA) 10 mg tablet Take 1 tablet by mouth once daily. - promethazine (PHENERGAN) 25 mg tablet Take 1 tablet by mouth every 6 hours as needed for nausea/vomiting. - busPIRone (BUSPAR) 15 mg tablet Take 1 tablet by mouth three times daily. - Blood-Glucose Meter Test blood sugar(s) 1 times daily. Dx: Type 2 DM - Uncontrolled E11.65 Insulin: No - Lancets lancets Test blood sugar(s) 1 times daily. Dx: Type 2 DM - Uncontrolled E11.65 Insulin: No - albuterol HFA (PROVENTIL HFA, VENTOLIN HFA) 90 mcg/actuation inhaler Inhale 2 Puffs as instructed every 4 hours as needed for wheezing/shortness of breath. - diclofenac (VOLTAREN) 1 % topical gel Apply 2 g to affected area four times daily. - Lancets lancets Test blood sugar(s) 1 times daily. Dx: E11.65. Insulin: No - aspirin 81 mg chewable tablet Take 81 mg by mouth once daily. - Blood-Glucose Meter monitoring kit Glucose Meter of Choice - Kit - Dx: Type 2 DM - Uncontrolled - multivitamins(DAILY MULTIVITAMIN TAB) Take one(1) tablet daily. Meds Comments as of 11/08/2023: November 08, 2023: Patient reports starting Diflucan in the last 30 days. Janeth Jennings RN 08/22/2019: No longer taking metformin. Ghislaine Austin, RN (Nurse svp research & ebusiness operations). Also takes Paxil and a vitamin 1-1 S. KAUSHAL Bowman Problem List As Of Date 02/14/2024 Noted Resolved Routine gynecological examination [Z01.419] 07/27/2007 02/05/2017 Class: Chronic PERS HX PENICILLIN ALLERGY [Z88.0] 07/27/2007 Pure hypercholesterolemia [E78.00] Anxiety [F41.9] CLASS MIGRAIN W/O MENTN INTRACTABLE [G43.109] Diabetes mellitus, non-insulin dependent (NIDDM*07/27/2007 Class 1 obesity due to excess calories with ser*07/27/2007 UNSOCIAL AGGRESS-UNSPEC [F91.1] 08/10/2007 Obstructive sleep apnea [G47.33] 08/31/2007 CARPAL TUNNEL SYNDROME [G56.00] 08/31/2007 Coronary a (more content not included)... Normal [facility] ECHOon 12-30-2023 CONCLUSIONS: - Exam indication: Shortness of Breath - The left ventricle is normal in size. Left ventricular systolic function is normal. EF = 60 5% (2D biplane) Grade I left ventricular diastolic dysfunction. - The right ventricle is normal in size. Right ventricular systolic function is normal. - There are no significant valvular abnormalities. - Estimated right ventricular systolic pressure is likely underestimated due to a weak or incomplete tricuspid regurgitation signal and is, at least, 29 mmHg consistent with normal pulmonary artery pressures. Estimated right atrial pressure is 8 mmHg based on IVC assessment. - Exam was compared with the prior echocardiographic exam performed on 04/18/21. The tricuspid regurgitation appears decreased on today's exam. * * * Final * * * [facility] Echocardiography Report: Transthoracic Echo [facility] Date of service: 12/30/2023 9:02:13 AM Ordering physician: HAWA PADRON Indication: Shortness of Breath Technologist: Damari Batista [facility] Interpreting physician: Lamonte Gaytan DO PATIENT: Name: MRS. CAMILA HARMON : 1960 Age: 63 years Gender: F History of diabetes mellitus, hypertension, dyslipidemia and coronary artery disease. Previous cardiovascular interventions: PCI (2008) Primary rhythm: sinus. Height: 154.94 cm BSA: 1.97 m Weight: 89.81 kg BMI: 37.4 kg/m Heart rate 75 bpm Blood pressure 150/68 mmHg Color Doppler was utilized to interrogate the cardiac valves assessed and spectral Doppler was utilized to determine the flow velocities and pressure gradients reported in this exam. Myocardial strain analysis was performed in this exam to aid in the assessment of cardiac function. MEASUREMENTS: Value Indexed Normal Max aortic dimension 3.2 cm Ao < 3.8 Left atrium diameter 3.0 cm (2D) LAd < 4 LV ID (diastole) 4.2 cm (2D) 2.15 cm/m LV ID (systole) 2.8 cm (2D) 1.42 cm/m IVS, leaflet tips 0.7 cm (2D) Posterior wall thickness 0.8 cm (2D) Left ventricular mass 100 g (2D) 51 g/m Global peak long strain -16.4 % LV stroke volume 44 ml (2D biplane) LV end diastolic volume 73 ml (2D biplane) 37.1 ml/m 29<=EDVi<62 LV end systolic volume 29 ml (2D biplane) 14.7 ml/m Ejection Fraction 60 % (2D biplane) EF > 54 FINDINGS: LEFT VENTRICLE The left ventricle is normal in size. Left ventricular systolic function is normal. Global LV myocardial strain is normal. Grade I left ventricular diastolic dysfunction. Mitral annular lateral E/e': 7.5. Mitral annular septal E/e': 8.6. Wall Motion: All scored segments are normal. RIGHT VENTRICLE The right ventricle is normal in size. Right ventricular systolic function is normal. RV systolic tissue Doppler velocity is 12.6 cm/s. Tricuspid annular displacement is 2.1 cm. Estimated right ventricular systolic pressure is likely underestimated due to a weak or incomplete tricuspid regurgitation signal and is, at least, 29 mmHg consistent with normal pulmonary artery pressures. Estimated right atrial pressure is 8 mmHg based on IVC assessment. LEFT ATRIUM The left atrial cavity is normal in size. RIGHT ATRIUM The right atrial cavity is normal in size. Inferior Vena Cava: The inferior vena cava appears normal measuring 1.2 cm. The vessel decreases less than 50 percent with inspiration. MITRAL VALVE The mitral valve leaflets are structurally normal. There is trace mitral valve regurgitation. The pressure half time is 88 msec. The peak mitral E/A ratio is 0.76. The mitral flow deceleration time is 302 msec. TRICUSPID VALVE The tricuspid valve leaflets are structurally normal. There is trace tricuspid valve regurgitation. AORTIC VALVE The aortic valve cusps are structurally normal. There is no aortic valve regurgitation. Tricuspid aortic valve. The peak gradient is 14 mmHg (peak velocity = 187.0 cm/s). PULMONIC VALVE The pulmonic valve cusps are structurally normal. There is trace pulmonic valve regurgitation. The peak gradient is 7 mmHg. AORTA The visualized aorta is normal in size. Measurements - Sinus: 2.6 cm. Mid ascending aorta 3.2 cm. PULMONARY ARTERIES The pulmonary arteries are unseen or not interrogated. INTERATRIAL SEPTUM There is no evidence of intracardiac shunting as detected by Doppler. INTERVENTRICULAR SEPTUM There is no flow through the interventricular septum as detected by Doppler. PERICARDIUM There is no pericardial effusion. [facility] Echocardiography Echocardiography Report: Transthoracic Echo [facility] Date of service: 12/30/2023 9:02:13 AM Ordering physician: HAWA PADRON Indication: Shortness of Breath Technologist: Damari Batista [facility] Interpreting physician: Lamonte Gaytan DO PATIENT: Name: MRS. CAMILA HARMON : 1960 Age: 63 years Gender: F History of diabetes mellitus, hypertension, dyslipidemia and coronary artery disease. Previous cardiovascular interventions: PCI (2008) Primary rhythm: sinus. Height: 154.94 cm BSA: 1.97 m Weight: 89.81 kg BMI: 37.4 kg/m Heart rate 75 bpm Blood pressure 150/68 mmHg Color Doppler was utilized to interrogate the cardiac valves assessed and spectral Doppler was utilized to determine the flow velocities and pressure gradients reported in this exam. Myocardial strain analysis was performed in this exam to aid in the assessment of cardiac function. MEASUREMENTS: Value Indexed Normal Max aortic dimension 3.2 cm Ao < 3.8 Left atrium diameter 3.0 cm (2D) LAd < 4 LV ID (diastole) 4.2 cm (2D) 2.15 cm/m LV ID (systole) 2.8 cm (2D) 1.42 cm/m IVS, leaflet tips 0.7 cm (2D) Posterior wall thickness 0.8 cm (2D) Left ventricular mass 100 g (2D) 51 g/m Global peak long strain -16.4 % LV stroke volume 44 ml (2D biplane) LV end diastolic volume 73 ml (2D biplane) 37.1 ml/m 29<=EDVi<62 LV end systolic volume 29 ml (2D biplane) 14.7 ml/m Ejection Fraction 60 % (2D biplane) EF > 54 FINDINGS: LEFT VENTRICLE The left ventricle is normal in size. Left ventricular systolic function is normal. Global LV myocardial strain is normal. Grade I left ventricular diastolic dysfunction. Mitral annular lateral E/e': 7.5. Mitral annular septal E/e': 8.6. Wall Motion: All scored segments are normal. RIGHT VENTRICLE The right ventricle is normal in size. Right ventricular systolic function is normal. RV systolic tissue Doppler velocity is 12.6 cm/s. Tricuspid annular displacement is 2.1 cm. Estimated right ventricular systolic pressure is likely underestimated due to a weak or incomplete tricuspid regurgitation signal and is, at least, 29 mmHg consistent with normal pulmonary artery pressures. Estimated right atrial pressure is 8 mmHg based on IVC assessment. LEFT ATRIUM The left atrial cavity is normal in size. RIGHT ATRIUM The right atrial cavity is normal in size. Inferior Vena Cava: The inferior vena cava appears normal measuring 1.2 cm. The vessel decreases less than 50 percent with inspiration. MITRAL VALVE The mitral valve leaflets are structurally normal. There is trace mitral valve regurgitation. The pressure half time is 88 msec. The peak mitral E/A ratio is 0.76. The mitral flow deceleration time is 302 msec. TRICUSPID VALVE The tricuspid valve leaflets are structurally normal. There is trace tricuspid valve regurgitation. AORTIC VALVE The aortic valve cusps are structurally normal. There is no aortic valve regurgitation. Tricuspid aortic valve. The peak gradient is 14 mmHg (peak velocity = 187.0 cm/s). PULMONIC VALVE The pulmonic valve cusps are structurally normal. There is trace pulmonic valve regurgitation. The peak gradient is 7 mmHg. AORTA The visualized aorta is normal in size. Measurements - Sinus: 2.6 cm. Mid ascending aorta 3.2 cm. PULMONARY ARTERIES The pulmonary arteries are unseen or not interrogated. INTERATRIAL SEPTUM There is no evidence of intracardiac shunting as detected by Doppler. INTERVENTRICULAR SEPTUM There is no flow through the interventricular septum as detected by Doppler. PERICARDIUM There is no pericardial effusion. CONCLUSIONS: - Exam indication: Shortness of Breath - The left ventricle is normal in size. Left ventricular systolic function is normal. EF = 60 5% (2D biplane) Grade I left ventricular diastolic dysfunction. - The right ventricle is normal in size. Right ventricular systolic function is normal. - There are no significant valvular abnormalities. - Estimated right ventricular systolic pressure is likely underestimated due to a weak or incomplete tricuspid regurgitation signal and is, at least, 29 mmHg consistent with normal pulmonary artery pressures. Estimated right atrial pressure is 8 mmHg based on IVC assessment. - Exam was compared with the prior echocardiographic exam performed on 04/18/21. The tricuspid regurgitation appears decreased on today's exam. * * * Final * * * [employer] [facility] : [id number] [facility] [place] C[facility]IAC PERF STRESS/PHARM on 12-23-2023 [place] CARDIAC PERF STRESS/PHARM * * *Final Report* * * DATE OF EXAM: Dec 23 2023 3:54PM NIKI 0006 - NM CARDIAC PERF STRESS/PHARM / PROCEDURE REASON: multiple diagnoses * * * * Physician Interpretation * * * * Stress Berry Planter Report: [facility] Date of service: 23/12/2023 14:19:34 Supervising physician: Hawa Padron MD PATIENT: Name: MRS. CAMILA HARMON Age: 63 years Gender: F The supervising physician was in the department and immediately available. * * * Final * * * ---- PATIENT: Name: MRS. CAMILA HARMON Age: 63 years Gender: F CONCLUSIONS: 1. SPECT Perfusion Study: Normal. 2. There is no scintigraphic evidence for inducible ischemia. 3. No evidence of scarred myocardium. 4. Left ventricle is normal in size. The left ventricle systolic function is normal. 5. Right ventricle is normal in size. The right ventricle systolic function is normal. 6. This is a low risk scan. Gated Stress IR:3D Gated Rest IR:3D LVEF % 70 83 Prior Study Comparison Prior nuclear cardiology exam was performed on 01/23/2022. Nuclear Med Report:1-Day Gated SPECT Myocardial Perfusion with Regadenoson Stress: Myocardial perfusion imaging was performed at rest 30 minutes following the IV injection of the radiotracer. The patient received 0.4 mg of regadenoson, via rapid IV push, immediately followed by radiotracer IV. Gated post stress tomographic imaging was performed 30 to 60 minutes later. See administered radiotracer and doses below. [facility] Date of service: 12/23/2023 2:19:34 PM Ordering Physician: HAWA PADRON. Requesting Physician: Indication: Dyspnea Interpreting physician: Nick Jones MD Previous Cardiovascular Interventions: PCI (2008) PCI (2011) Height: 154.94 cm BSA: 1.97 m? Weight: 90.27 kg BMI: 37.6 kg/m? CT Dose-Length Product(DLP): 75.4 mGy * cm. CT Dose Reduction Employed: Yes. Exam Type: Rest Stress Radiopharm: Tc-99m Tetrofosmin Tc-99m Tetrofosmin Dosage(mCi): 16.3 50.3 Atten Correction: performed performed Stress Agent: Regadenoson 0.4mg Supply provided from [facility] Resting Blood Press: 122/3 mmHg Image Quality The overall study imaging quality was deemed to be good. FINDINGS: Stress IR:3D Gated Stress IR:3D Gated Rest IR:3D LVEF: 70 % 83 % ED Volume: 71 ml 64 ml ES Volume: 21 ml 11 ml TID: 1.08 Perfusion Findings Stress IR:3D - Summed Score=0 All segments demonstrate normal perfusion. Rest IR:3D - Summed Score=0 All segments demonstrate normal perfusion. Stress IR:3D Rest IR:3D Summed Score=0 Summed Score=0 LEFT VENTRICLE The left ventricle is normal in size. Left ventricular systolic function is normal. Right Ventricle The right ventricle is normal in size. Right ventricle systolic function is normal. Stress Test Findings: There is no scintigraphic evidence for inducible ischemia. There is no evidence of scarring. * * * Final * * * ---- NM CTAC Report: [facility] Date of service: 12/23/2023 2:19:34 PM CTAC interpreting physician: Nick Jones MD PATIENT: Name: MRS. CAMILA HARMON Age: 63 years Gender: F 1. Incidental Findings from limited non-diagnostic CTAC: - Coronary calcifications visualized. * * * Final * * * ---- Stress ECG Report: [facility] Date of service: 23/12/2023 14:19:34 Ordering physician: HAWA PADRON service center specialist: Ирина [place] [employer] Agent: Irish Bedoya Interpreting physician: Hawa Padron MD Patient name: MRS. CAMILA HARMON Age: 63 years Gender: F Height: 154.94 cm BSA: 1.97 m? Weight: 90.27 kg BMI: 37.6 kg/m? Indication: Dyspnea on exertion Stress ECG Conclusion: Conclusion: Normal Stress ECG Summary: The patient's resting heart rate was 68 bpm and blood pressure was 122/3 mmHg. The test was terminated due to end of protocol. Other symptoms during the test included SOB. The maximum heart rate was 96 bpm, which is 60% of the predicted heart rate for age. Peak blood pressure was 140/65 mmHg. The double product achieved was [address]. Previous cardiovascular interventions: PCI (2008) PCI (2011) Medications: Last Used ALBUTEROL INHALER ASPIRIN TENORMIN BUSPAR JARDIANCE NEXIUM ZETIA NEURONTIN AMARYL ATARAX ZESTRIL ATIVAN MAGNESIUM GLUCOPHAGE PROTONIX PAXIL mounjaro Resting ECG: Normal Sinus Rhythm and Occasional PVCs (3-7/Min) (more content not included)... Normal [facility] [place] Heart Perfusion W stress and W radionuclide Mary 12-23-2023 * * *Final Report* * * DATE OF EXAM: Dec 23 2023 3:54PM NIKI 0006 - NM CARDIAC PERF STRESS/PHARM / PROCEDURE REASON: multiple diagnoses * * * * Physician Interpretation * * * * Stress Berry Planter Report: [facility] Date of service: 23/12/2023 14:19:34 Supervising physician: Hawa Padron MD PATIENT: Name: MRS. CAMILA HARMON Age: 63 years Gender: F The supervising physician was in the department and immediately available. * * * Final * * * ---- PATIENT: Name: MRS. CAMILA HARMON Age: 63 years Gender: F CONCLUSIONS: 1. SPECT Perfusion Study: Normal. 2. There is no scintigraphic evidence for inducible ischemia. 3. No evidence of scarred myocardium. 4. Left ventricle is normal in size. The left ventricle systolic function is normal. 5. Right ventricle is normal in size. The right ventricle systolic function is normal. 6. This is a low risk scan. Gated Stress IR:3D Gated Rest IR:3D LVEF % 70 83 Prior Study Comparison Prior nuclear cardiology exam was performed on 01/23/2022. Nuclear Med Report:1-Day Gated SPECT Myocardial Perfusion with Regadenoson Stress: Myocardial perfusion imaging was performed at rest 30 minutes following the IV injection of the radiotracer. The patient received 0.4 mg of regadenoson, via rapid IV push, immediately followed by radiotracer IV. Gated post stress tomographic imaging was performed 30 to 60 minutes later. See administered radiotracer and doses below. [facility] Date of service: 12/23/2023 2:19:34 PM Ordering Physician: HAWA PADRON. Requesting Physician: Indication: Dyspnea Interpreting physician: Nick Jones MD Previous Cardiovascular Interventions: PCI (2008) PCI (2011) Height: 154.94 cm BSA: 1.97 m Weight: 90.27 kg BMI: 37.6 kg/m CT Dose-Length Product(DLP): 75.4 mGy * cm. CT Dose Reduction Employed: Yes. Exam Type: Rest Stress Radiopharm: Tc-99m Tetrofosmin Tc-99m Tetrofosmin Dosage(mCi): 16.3 50.3 Atten Correction: performed performed Stress Agent: Regadenoson 0.4mg Supply provided from [facility] Blood Press: 122/3 mmHg Image Quality The overall study imaging quality was deemed to be good. FINDINGS: Stress IR:3D Gated Stress IR:3D Gated Rest IR:3D LVEF: 70 % 83 % ED Volume: 71 ml 64 ml ES Volume: 21 ml 11 ml TID: 1.08 Perfusion Findings Stress IR:3D - Summed Score=0 All segments demonstrate normal perfusion. Rest IR:3D - Summed Score=0 All segments demonstrate normal perfusion. Stress IR:3D Rest IR:3D Summed Score=0 Summed Score=0 LEFT VENTRICLE The left ventricle is normal in size. Left ventricular systolic function is normal. Right Ventricle The right ventricle is normal in size. Right ventricle systolic function is normal. Stress Test Findings: There is no scintigraphic evidence for inducible ischemia. There is no evidence of scarring. * * * Final * * * ---- NM CTAC Report: [facility] Date of service: 12/23/2023 2:19:34 PM CTAC interpreting physician: Nick Jones MD PATIENT: Name: MRS. CAMILA HARMON Age: 63 years Gender: F 1. Incidental Findings from limited non-diagnostic CTAC: - Coronary calcifications visualized. * * * Final * * * ---- Stress ECG Report: [facility] Date of service: 23/12/2023 14:19:34 Ordering physician: HAWA PADRON service center specialist: Ирина [place] [employer] Agent: Irish Bedoya Interpreting physician: Hawa Padron MD Patient name: MRS. CAMILA HARMON Age: 63 years Gender: F Height: 154.94 cm BSA: 1.97 m Weight: 90.27 kg BMI: 37.6 kg/m Indication: Dyspnea on exertion Stress ECG Conclusion: Conclusion: Normal Stress ECG Summary: The patient's resting heart rate was 68 bpm and blood pressure was 122/3 mmHg. The test was terminated due to end of protocol. Other symptoms during the test included SOB. The maximum heart rate was 96 b (more content not included)... [facility] Provider, [facility] [place] - 12/23/2023 * * *Final Report* * * DATE OF EXAM: Dec 23 2023 3:54PM NIKI 0006 - [place] CARDIAC PERF STRESS/PHARM / PROCEDURE REASON: multiple diagnoses * * * * Physician Interpretation * * * * Stress Berry Planter Report: [facility] Date of service: 23/12/2023 14:19:34 Supervising physician: Hawa Padron MD PATIENT: Name: MRS. CAMILA HARMON Age: 63 years Gender: F The supervising physician was in the department and immediately available. * * * Final * * * ---- PATIENT: Name: MRS. CAMILA HARMON Age: 63 years Gender: F CONCLUSIONS: 1. SPECT Perfusion Study: Normal. 2. There is no scintigraphic evidence for inducible ischemia. 3. No evidence of scarred myocardium. 4. Left ventricle is normal in size. The left ventricle systolic function is normal. 5. Right ventricle is normal in size. The right ventricle systolic function is normal. 6. This is a low risk scan. Gated Stress IR:3D Gated Rest IR:3D LVEF % 70 83 Prior Study Comparison Prior nuclear cardiology exam was performed on 01/23/2022. Nuclear Med Report:1-Day Gated SPECT Myocardial Perfusion with Regadenoson Stress: Myocardial perfusion imaging was performed at rest 30 minutes following the IV injection of the radiotracer. The patient received 0.4 mg of regadenoson, via rapid IV push, immediately followed by radiotracer IV. Gated post stress tomographic imaging was performed 30 to 60 minutes later. See administered radiotracer and doses below. [facility] Date of service: 12/23/2023 2:19:34 PM Ordering Physician: HAWA PADRON. Requesting Physician: Indication: Dyspnea Interpreting physician: Nick Jones MD Previous Cardiovascular Interventions: PCI (2009) PCI (2011) Height: 154.94 cm BSA: 1.97 m Weight: 90.27 kg BMI: 37.6 kg/m CT Dose-Length Product(DLP): 75.4 mGy * cm. CT Dose Reduction Employed: Yes. Exam Type: Rest Stress Radiopharm: Tc-99m Tetrofosmin Tc-99m Tetrofosmin Dosage(mCi): 16.3 50.3 Atten Correction: performed performed Stress Agent: Regadenoson 0.4mg Supply provided from [facility] Resting Blood Press: 122/3 mmHg Image Quality The overall study imaging quality was deemed to be good. FINDINGS: Stress IR:3D Gated Stress IR:3D Gated Rest IR:3D LVEF: 70 % 83 % ED Volume: 71 ml 64 ml ES Volume: 21 ml 11 ml TID: 1.08 Perfusion Findings Stress IR:3D - Summed Score=0 All segments demonstrate normal perfusion. Rest IR:3D - Summed Score=0 All segments demonstrate normal perfusion. Stress IR:3D Rest IR:3D Summed Score=0 Summed Score=0 LEFT VENTRICLE The left ventricle is normal in size. Left ventricular systolic function is normal. Right Ventricle The right ventricle is normal in size. Right ventricle systolic function is normal. Stress Test Findings: There is no scintigraphic evidence for inducible ischemia. There is no evidence of scarring. * * * Final * * * ---- GA CTAC Report: [facility] Date of service: 12/23/2023 2:19:34 PM CTAC interpreting physician: Nick Jones MD PATIENT: Name: MRS. CAMILA HARMON Age: 63 years Gender: F 1. Incidental Findings from limited non-diagnostic CTAC: - Coronary calcifications visualized. * * * Final * * * ---- Stress ECG Report: [facility] Date of service: 23/12/2023 14:19:34 Ordering physician: HAWA PADRON service center specialist: Ирина [place] [facility] [employer] Agent: Irish Bedoya Interpreting physician: Hawa Padron MD Patient name: MRS. CAMILA HARMON Age: 63 years Gender: F Height: 154.94 cm BSA: 1.97 m Weight: 90.27 kg BMI: 37.6 kg/m Indication: Dyspnea on exertion Stress ECG Conclusion: Conclusion: Normal Stress ECG Summary: The patient's resting heart rate was 68 bpm and blood pressure was 122/3 mmHg. The test was terminated due to end of protocol. Other symptoms during the test included SOB. The maximum heart rate was 96 bpm, which is 60% of the predicted heart rate for age. Peak blood pressure was 140/65 mmHg. The double product achieved was [address]. Previous cardiovascular interventions: PCI (2008) PCI (2011) Medications: Last Used ALBUTEROL INHALER ASPIRIN TENORMIN BUSPAR JARDIANCE NEXIUM ZETIA (more content not included)... [facility] Radiology Study observation (narrative) [facility] NM Heart Perfusion W stress and W radionuclide IVOrdered By: [facility] CAM[facility] HAR[facility] ([id number]) 1960 F Date Time Provider Department 12/22/23 ИРИНА OLMSTEAD During your visit today, we recorded the following information about you: Ирина [place] RN 12/22/2023 3:08 PM Signed Left message regarding reminder and instructions for stress test tomorrow. This included where to check in, length of test and no caffeine for 12 hours prior to test. Allergies As of Date: 12/22/2023 Noted Allergy Reaction PENICILLINS 06/29/2005 4 - Hives PERCOCET (OXYCODONE-ACETAMINOPHE N)08/31/2007 8 - GI Upset TYLENOL-CODEINE ELIXIR 05/21/2010 14 - Other: See Comments Comments: halucinations Date Reviewed: 11/10/2023 Reviewed by: Nargis Reynaga LPN - Fully Assessed Reason for Visit: Reminder Call [[id number]] Prescriptions as of 12/22/2023 - Fenofibrate 40 mg tab Take 1 tablet by mouth once daily. - PARoxetine (PAXIL) 40 mg tablet Take 1 tablet by mouth once daily. - pantoprazole DR (PROTONIX) 40 mg tablet Take 1 tablet by mouth daily before breakfast. Take on empty stomach, 1/2 hr before meal. - PARoxetine (PAXIL) 10 mg tablet Take 1 tablet by mouth once daily. Take along with Paxil 40 mg tablet - LORazepam (ATIVAN) 0.5 mg Take 2 tablets by mouth two times a day for 90 days. - metFORMIN (GLUCOPHAGE) 500 mg tablet Take 1 tablet by mouth two times a day with meals. - empagliflozin (JARDIANCE) 25 mg tablet Take 1 tablet once daily in the morning - tirzepatide (MOUNJARO) 15 mg/0.5 mL pen injector Inject 15 mg subcutaneously one time a week. - cyanocobalamin (VITAMIN B-12) 1,000 mcg tab Take 1 tablet by mouth once daily. - cholecalciferol (VITAMIN D-3) 5,000 unit tab Take 1 tablet by mouth once daily. - esomeprazole (NEXIUM) 20 mg capsule Take 20 mg by mouth daily at 6 am. - Blood-Glucose Sensor ([employer] G7 SENSOR) john CHANGE SENSOR EVERY 10 days USE FOR CONTINUOUS GLUCOSE MONITORING. E11.9 - ondansetron orally disintegrating (ZOFRAN ODT) 4 mg disintegrating tablet Take 1 tablet by mouth every 6 hours as needed for nausea/vomiting. - lisinopril (ZESTRIL) 20 mg tablet Take 1 tablet by mouth two times a day. - atorvastatin (LIPITOR) 80 mg tablet Take 1 tablet by mouth daily at bedtime for cholesterol. - atenolol (TENORMIN) 100 mg tablet Take 1 tablet by mouth once daily. - gabapentin (NEURONTIN) 300 mg capsule Take 1 capsule by mouth two times a day for 180 days. - magnesium oxide (MAG-OX) 400 mg (241.3 mg magnesium) tablet Take 1 tablet by mouth two times a day. - nitroglycerin sublingual (NITROQUICK) 0.4 mg SL tablet Dissolve 1 tablet under the tongue as needed. FOR CHEST PAIN. IF NO RELIEF CALL 911 - blood sugar diagnostic (BLOOD GLUCOSE TEST) test strip Test blood sugar(s) one times daily. Dx: Type 2 DM - Uncontrolled Insulin: No - glimepiride (AMARYL) 4 mg tablet Take 1 tablet by mouth twice daily with meals. - ezetimibe (ZETIA) 10 mg tablet Take 1 tablet by mouth once daily. - cyclobenzaprine (FLEXERIL) 10 mg tablet Take 1 tablet by mouth three times daily as needed for muscle spasm. - promethazine (PHENERGAN) 25 mg tablet Take 1 tablet by mouth every 6 hours as needed for nausea/vomiting. - meclizine (ANTIVERT) 25 mg tab Take 1 tablet by mouth three times daily as needed. - hydrOXYzine HCl (ATARAX) 25 mg tablet Take 1 tablet by mouth every 6 hours as needed for anxiety. - busPIRone (BUSPAR) 15 mg tablet Take 1 tablet by mouth three times daily. - Blood-Glucose Meter Test blood sugar(s) 1 times daily. Dx: Type 2 DM - Uncontrolled Insulin: No - Lancets lancets Test blood sugar(s) 1 times daily. Dx: Type 2 DM - Uncontrolled Insulin: No - albuterol HFA (PROVENTIL HFA, VENTOLIN HFA) 90 mcg/actuation inhaler Inhale 2 Puffs as instructed every 4 hours as needed for wheezing/shortness of breath. - diclofenac (VOLTAREN) 1 % topical gel Apply 2 g to affected area four times daily. - Lancets lancets Test blood sugar(s) 1 times daily. Dx: . Insulin: No - aspirin 81 mg chewable tablet Take 81 mg by mouth once daily. - Blood-Glucose Meter monitoring kit Glucose Meter of Choice - Kit - Dx: Type 2 DM - Uncontrolled - multivitamins(DAILY MULTIVITAMIN TAB) Take one(1) tablet daily. Meds Comments as of 11/08/2023: November 08, 2023: Patient reports starting Diflucan in the last 30 days. Janeth Jennings, KAUSHAL 08/22/2019: No longer taking metformin. 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 Also takes Paxil and a vitamin 1-1 S. KAUSHAL Bowman Problem List As Of Date 12/22/2023 Noted Resolved Routine gynecological examination [Z01.419] 07/27/2007 02/05/2017 Class: Chronic PERS HX PENICILLIN ALLERGY [Z88.0] 07/27/2007 Pure hypercholesterolemia [E78.00] Anxiety [F41.9] CLASS MIGRAIN W/O MENTN INTRACTABLE [G43.109] Diabetes mellitus, non-insulin dependent (NIDDM*07/27/2007 (more content not included)... [facility] 12-09-2023 [facility] Office Visit ([facility] ) LeticiaIVANCAMILA WILLARD Ross ([id number]) 1960 F Date Time Provider Department 12/09/23 2:20 PM HAWA PADRON During your visit today, we recorded the following information about you: Pulse Blood pressure Weight 75/minute 118/78 90.1 kg Hawa Padron MD 12/09/2023 4:50 PM Signed [facility] SECTION OF REGIONAL CARDIOLOGY OUTPATIENT VISIT DATE 12/09/2023 OUTPATIENT VISIT TYPE ESTABLISHED PRIMARY CARE PHYSICIAN: Emily Wang [address] [place] [address] HISTORY OF PRESENT ILLNESS: Ms. Harmon is a 63 year old female, history of hypertension, hyperlipidemia, family history of premature CAD, CAD s/p PCI in 2010 and 2008, 1-2+, TR, FLOR, DM, presents for follow-up visit. Previously seen by Dr. Nash 10/21/2022 Cath 02/11/22: patent stents in the proximal to mid LAD with mild in-stent restenosis. Bifurcation stenting into the first large diagonal branch with an ostial 50-60% in-stent restenosis. Otherwise mild diffuse disease. Normal LVEDP. The LAD and left circumflex nearly arise from separate ostia. She reports SOB with lifting heavy palettes. She had an episode of chest pain 3 months ago while lifting palettes and had to take a sl nitro. She experiences intermittent chest pain and SOB. PAST MEDICAL HISTORY Diagnosis Date Coronary artery disease Depressive disorder, not elsewhere classified Enlarged liver Excessive or frequent menstruation 07/06/2004 s/p TVH Migraine with aura, without mention of intractable migraine without mention of status migrainosus Other anxiety states Pure hypercholesterolemia S/P primary angioplasty with coronary stent 11/06/2008 Type II or unspecified type diabetes mellitus without mention of complication, not stated as uncontrolled PAST SURGICAL HISTORY Procedure Laterality Date CARPAL TUNNEL Bilateral 03/05/2017 COLONOSCOPY FLX DX W/COLLJ SPEC WHEN PFRMD 07/19/2013 Colonoscopy EXTRACTION, ERUPTED TOOTH OR EXPOSED ROOT (ELEVATION AND/OR FORCEPS REMOVAL) wisdom teeth HEART CATHETERIZATION N/A 02/11/2022 HYSTERECTOMY HX PAST SURGICAL HISTORY OF 02/22/2002 BREAST REDUCTION PAST SURGICAL HISTORY OF 2008, 2011 stent, LAD X2. VAGINAL HYSTERECTOMY UTERUS 250 GM/< 07/2004 Hysterectomy, vaginal Social History Tobacco Use Smoking status: Former Current packs/day: 0.00 Types: Cigarettes Start date: 06/02/2017 Quit date: 06/02/2020 Years since quittin.5 Smokeless tobacco: Never Tobacco comments: social smoking for 3 years. Occasional smoking when upset Vaping Use Vaping status: Never Used Substance Use Topics Alcohol use: Yes Comment: Socially Drug use: No FAMILY HISTORY Problem Relation Age of Onset Hypertension Mother Diabetes Mother Heart Mother [place], age 72; first dx age late 60's Lipids Mother Stroke Mother Blindness Mother Hypertension Father Lipids Father Diabetes Father ALLERGIES Allergen Reactions Penicillins Hives Percocet [Oxycodone* GI Upset Tylenol-Codeine Prerna* Other: See Comments halucinations CURRENT MEDICATIONS: PARoxetine (PAXIL) 40 mg tablet Take 1 tablet by mouth once daily. pantoprazole DR (PROTONIX) 40 mg tablet Take 1 tablet by mouth daily before breakfast. Take on empty stomach, 1/2 hr before meal. PARoxetine (PAXIL) 10 mg tablet Take 1 tablet by mouth once daily. Take along with Paxil 40 mg tablet LORazepam (ATIVAN) 0.5 mg Take 2 tablets by mouth two times a day for 90 days. metFORMIN (GLUCOPHAGE) 500 mg tablet Take 1 tablet by mouth two times a day with meals. empagliflozin (JARDIANCE) 25 mg tablet Take 1 tablet once daily in the morning tirzepatide (MOUNJARO) 15 mg/0.5 mL pen injector Inject 15 mg subcutaneously one time a week. cyanocobalamin (VITAMIN B-12) 1,000 mcg tab Take 1 tablet by mouth once daily. cholecalciferol (VITAMIN D-3) 5,000 unit tab Take 1 tablet by mouth once daily. esomeprazole (NEXIUM) 20 mg capsule Take 20 mg by mouth daily at 6 am. Blood-Glucose Sensor ([employer] G7 SENSOR) john CHANGE SENSOR EVERY 10 days USE FOR CONTINUOUS GLUCOSE MONITORING. E11.9 ondansetron orally disintegrating (ZOFRAN ODT) 4 mg disintegrating tablet Take 1 tablet by mouth every 6 hours as needed for nausea/vomiting. lisinopril (ZESTRIL) 20 mg tablet Take 1 tablet by mouth two times a day. atorvastatin (LIPITOR) 80 mg tablet Take 1 tablet by mouth daily at bedtime for cholesterol. atenolol (TENORMIN) 100 mg tablet Take 1 tablet by mouth once daily. magnesium oxide (MAG-OX) 400 mg (241.3 mg magnesium) tablet Take 1 tablet by mouth two times a day. nitroglycerin sublingual (NITROQUICK) 0.4 mg SL tablet Dissolve 1 tablet under the tongue as needed. FOR CHEST PAIN. IF NO RELIEF CALL 911 blood sugar diagnostic (BLOOD GLUCOSE TEST) test strip Test bloo (more content not included)... Normal [facility] 11-10[facility]2023 [facility] CAM[facility] HARMON ([id number]) 1960 F Date Time Provider Department 11/10/23 5:00 PM AILEEN QUINTANILLA During your visit today, we recorded the following information about you: Pulse Respiration Blood pressure Weight 81/minute 16/minute 130/80 90.1 kg Aileen Quintanilla APRN.SHIPPING ORDER CLERK 11/10/2023 6:56 PM Signed This is a 63 year old female who presents today with: Patient presents with: Acute Visit: vaginal discompfort HISTORY OF PRESENT ILLNESS: Camila Harmon is a 63 year old female. Patient presents with: Acute Visit: vaginal discompfort Here in the office for vaginal pain. Symptoms started the past 2 weeks, [facility], self swab was negative for BV but came back positive for Jakob. Given rx for diflucan, symptoms did not improve with 1 tablet, refers that she will take second tablet tonight. Denies any urinary symptoms. White thick vaginal discharge. Refers that she did have scant amount of vaginal bleeding with wiping. History of uncontrolled diabetes. Sugars have been in the 150's at home. PAST MEDICAL HISTORY: PAST MEDICAL HISTORY No date: Coronary artery disease No date: Depressive disorder, not elsewhere classified No date: Enlarged liver 07/06/2004: Excessive or frequent menstruation Comment: s/p TVH No date: Migraine with aura, without mention of intractable migraine without mention of status migrainosus No date: Other anxiety states No date: Pure hypercholesterolemia 11/06/2008: S/P primary angioplasty with coronary stent No date: Type II or unspecified type diabetes mellitus without mention of complication, not stated as uncontrolled PAST SURGICAL HISTORY 03/05/2017: CARPAL TUNNEL; Bilateral 07/19/2013: COLONOSCOPY FLX DX W/COLLJ SPEC WHEN PFRMD Comment: Colonoscopy No date: EXTRACTION, ERUPTED TOOTH OR EXPOSED ROOT (ELEVATION AND/OR FORCEPS REMOVAL) Comment: wisdom teeth 02/11/2022: HEART CATHETERIZATION; N/A No date: HYSTERECTOMY HX 02/22/2002: PAST SURGICAL HISTORY OF Comment: BREAST REDUCTION 2008, 2011: PAST SURGICAL HISTORY OF Comment: stent, LAD X2. 07/2004: VAGINAL HYSTERECTOMY UTERUS 250 GM/< Comment: Hysterectomy, vaginal ALLERGIES Penicillins, Percocet [Oxycodone-Acetaminophe n], and Tylenol-Codeine Elixir MEDICATIONS Current Outpatient Medications Medication Sig PARoxetine (PAXIL) 40 mg tablet Take 1 tablet by mouth once daily. pantoprazole DR (PROTONIX) 40 mg tablet Take 1 tablet by mouth daily before breakfast. Take on empty stomach, 1/2 hr before meal. PARoxetine (PAXIL) 10 mg tablet Take 1 tablet by mouth once daily. Take along with Paxil 40 mg tablet LORazepam (ATIVAN) 0.5 mg Take 2 tablets by mouth two times a day for 90 days. metFORMIN (GLUCOPHAGE) 500 mg tablet Take 1 tablet by mouth two times a day with meals. empagliflozin (JARDIANCE) 25 mg tablet Take 1 tablet once daily in the morning tirzepatide (MOUNJARO) 15 mg/0.5 mL pen injector Inject 15 mg subcutaneously one time a week. cyanocobalamin (VITAMIN B-12) 1,000 mcg tab Take 1 tablet by mouth once daily. cholecalciferol (VITAMIN D-3) 5,000 unit tab Take 1 tablet by mouth once daily. esomeprazole (NEXIUM) 20 mg capsule Take 20 mg by mouth daily at 6 am. Blood-Glucose Sensor ([employer] G7 SENSOR) jhon CHANGE SENSOR EVERY 10 days USE FOR CONTINUOUS GLUCOSE MONITORING. E11.9 (Patient not taking: Reported on 08/11/2023) ondansetron orally disintegrating (ZOFRAN ODT) 4 mg disintegrating tablet Take 1 tablet by mouth every 6 hours as needed for nausea/vomiting. lisinopril (ZESTRIL) 20 mg tablet Take 1 tablet by mouth two times a day. atorvastatin (LIPITOR) 80 mg tablet Take 1 tablet by mouth daily at bedtime for cholesterol. atenolol (TENORMIN) 100 mg tablet Take 1 tablet by mouth once daily. gabapentin (NEURONTIN) 300 mg capsule Take 1 capsule by mouth two times a day for 180 days. magnesium oxide (MAG-OX) 400 mg (241.3 mg magnesium) tablet Take 1 tablet by mouth two times a day. nitroglycerin sublingual (NITROQUICK) 0.4 mg SL tablet Dissolve 1 tablet under the tongue as needed. FOR CHEST PAIN. IF NO RELIEF CALL 911 blood sugar diagnostic (BLOOD GLUCOSE TEST) test strip Test blood sugar(s) one times daily. Dx: Type 2 DM - Uncontrolled E11.65 Insulin: No glimepiride (AMARYL) 4 mg tablet Take 1 tablet by mouth twice daily with meals. ezetimibe (ZETIA) 10 mg tablet Take 1 tablet by mouth once daily. cyclobenzaprine (FLEXERIL) 10 mg tablet Take 1 tablet by mouth three times daily as needed for muscle spasm. promethazine (PHENERGAN) 25 mg tablet Take 1 tablet by mouth every 6 hours as needed for nausea/vomiting. (Patient not taking: Reported on 06/10/2023) meclizine (ANTIVERT) 25 mg tab Take 1 tablet by mouth three times daily as needed. hydrOXYzine HCl (ATARAX) 25 mg tablet Take 1 tablet by mouth every 6 hours as (more content not included)... [facility] CAM[facility] HAR[facility] ([id number]) 1960 F Date Time Provider Department 11/09/23 EMILY WANG [facility] During your visit today, we recorded the following information about you: Jen Aldana RN 11/09/2023 4:09 PM Signed Pt called in asking about the glucose in her urine. GLUCOSE UA (POCT) Negative mg/dL >=1000 Abnormal 500 Abnormal 500 Abnormal Pt was put on Diflucan for yeast, and states she is feeling better, she is going to take the second pill. She states she had some trace blood on the toilet paper when wiping yesterday. Please call and advise. Emily Wang MD 11/09/2023 5:04 PM Signed The glucose in her urine is just because of her diabetes, so keep working on keeping her sugar level down. MD Fan Eli Rilee, MA 11/09/2023 5:09 PM Signed Pt called and notified of message below from Provider, verbalized understanding. Edith Chavira MA Allergies As of Date: 11/09/2023 Noted Allergy Reaction PENICILLINS 06/29/2005 4 - Hives PERCOCET (OXYCODONE-ACETAMINOPHE N)08/31/2007 8 - GI Upset TYLENOL-CODEINE ELIXIR 05/21/2010 14 - Other: See Comments Comments: halucinations Date Reviewed: 11/07/2023 Reviewed by: Binta Person LPN - Fully Assessed Reason for Visit: Results [95] Prescriptions as of 11/09/2023 - PARoxetine (PAXIL) 40 mg tablet Take 1 tablet by mouth once daily. - pantoprazole DR (PROTONIX) 40 mg tablet Take 1 tablet by mouth daily before breakfast. Take on empty stomach, 1/2 hr before meal. - PARoxetine (PAXIL) 10 mg tablet Take 1 tablet by mouth once daily. Take along with Paxil 40 mg tablet - LORazepam (ATIVAN) 0.5 mg Take 2 tablets by mouth two times a day for 90 days. - metFORMIN (GLUCOPHAGE) 500 mg tablet Take 1 tablet by mouth two times a day with meals. - empagliflozin (JARDIANCE) 25 mg tablet Take 1 tablet once daily in the morning - tirzepatide (MOUNJARO) 15 mg/0.5 mL pen injector Inject 15 mg subcutaneously one time a week. - cyanocobalamin (VITAMIN B-12) 1,000 mcg tab Take 1 tablet by mouth once daily. - cholecalciferol (VITAMIN D-3) 5,000 unit tab Take 1 tablet by mouth once daily. - esomeprazole (NEXIUM) 20 mg capsule Take 20 mg by mouth daily at 6 am. - Blood-Glucose Sensor ([employer] G7 SENSOR) john CHANGE SENSOR EVERY 10 days USE FOR CONTINUOUS GLUCOSE MONITORING. E11.9 - ondansetron orally disintegrating (ZOFRAN ODT) 4 mg disintegrating tablet Take 1 tablet by mouth every 6 hours as needed for nausea/vomiting. - lisinopril (ZESTRIL) 20 mg tablet Take 1 tablet by mouth two times a day. - atorvastatin (LIPITOR) 80 mg tablet Take 1 tablet by mouth daily at bedtime for cholesterol. - atenolol (TENORMIN) 100 mg tablet Take 1 tablet by mouth once daily. - gabapentin (NEURONTIN) 300 mg capsule Take 1 capsule by mouth two times a day for 180 days. - magnesium oxide (MAG-OX) 400 mg (241.3 mg magnesium) tablet Take 1 tablet by mouth two times a day. - nitroglycerin sublingual (NITROQUICK) 0.4 mg SL tablet Dissolve 1 tablet under the tongue as needed. FOR CHEST PAIN. IF NO RELIEF CALL 911 - blood sugar diagnostic (BLOOD GLUCOSE TEST) test strip Test blood sugar(s) one times daily. Dx: Type 2 DM - Uncontrolled Insulin: No - glimepiride (AMARYL) 4 mg tablet Take 1 tablet by mouth twice daily with meals. - ezetimibe (ZETIA) 10 mg tablet Take 1 tablet by mouth once daily. - cyclobenzaprine (FLEXERIL) 10 mg tablet Take 1 tablet by mouth three times daily as needed for muscle spasm. - promethazine (PHENERGAN) 25 mg tablet Take 1 tablet by mouth every 6 hours as needed for nausea/vomiting. - meclizine (ANTIVERT) 25 mg tab Take 1 tablet by mouth three times daily as needed. - hydrOXYzine HCl (ATARAX) 25 mg tablet Take 1 tablet by mouth every 6 hours as needed for anxiety. - busPIRone (BUSPAR) 15 mg tablet Take 1 tablet by mouth three times daily. - Blood-Glucose Meter Test blood sugar(s) 1 times daily. Dx: Type 2 DM - Uncontrolled Insulin: No - Lancets lancets Test blood sugar(s) 1 times daily. Dx: Type 2 DM - Uncontrolled Insulin: No - albuterol HFA (PROVENTIL HFA, VENTOLIN HFA) 90 mcg/actuation inhaler Inhale 2 Puffs as instructed every 4 hours as needed for wheezing/shortness of breath. - diclofenac (VOLTAREN) 1 % topical gel Apply 2 g to affected area four times daily. - Lancets lancets Test blood sugar(s) 1 times daily. Dx: E11.65. Insulin: No - aspirin 81 mg chewable tablet Take 81 mg by mouth once daily. - Blood-Glucose Meter monitoring kit Glucose Meter of Choice - Kit - Dx: Type 2 DM - Uncontrolled - multivitamins(DAILY MULTIVITAMIN TAB) Take one(1) tablet daily. Meds Comments as of 11/08/2023: November 08, 2023: Patient reports starting Diflucan in the last 30 days. Janeth Jennings, RN 08/22/2019: No longer taking metformin. Ghislaine Hernandez (more content not included)... [facility]) CAMILA HARMON ([id number]) 1960 F Date Time Provider Department 11/08/23 ISAIAH RODRIGUEZ [facility] During your visit today, we recorded the following information about you: Isaiah Rodriguez PA 11/08/2023 8:09 AM Signed Please let patient know that she did test positive for yeast. Take Diflucan as prescribed at visit yesterday. Muna Magallon MA 11/08/2023 9:38 AM Signed Left message for patient to return call. DIGNA Boyce Melissa, MA 11/09/2023 8:15 AM Signed notified by [facility]. Muna Magallon MA Allergies As of Date: 11/08/2023 Noted Allergy Reaction PENICILLINS 06/29/2005 4 - Hives PERCOCET (OXYCODONE-ACETAMINOPHE N)08/31/2007 8 - GI Upset TYLENOL-CODEINE ELIXIR 05/21/2010 14 - Other: See Comments Comments: halucinations Date Reviewed: 11/07/2023 Reviewed by: Binta Person LPN - Fully Assessed Reason for Visit: Results [95] Prescriptions as of 11/09/2023 - PARoxetine (PAXIL) 40 mg tablet Take 1 tablet by mouth once daily. - pantoprazole DR (PROTONIX) 40 mg tablet Take 1 tablet by mouth daily before breakfast. Take on empty stomach, 1/2 hr before meal. - PARoxetine (PAXIL) 10 mg tablet Take 1 tablet by mouth once daily. Take along with Paxil 40 mg tablet - LORazepam (ATIVAN) 0.5 mg Take 2 tablets by mouth two times a day for 90 days. - metFORMIN (GLUCOPHAGE) 500 mg tablet Take 1 tablet by mouth two times a day with meals. - empagliflozin (JARDIANCE) 25 mg tablet Take 1 tablet once daily in the morning - tirzepatide (MOUNJARO) 15 mg/0.5 mL pen injector Inject 15 mg subcutaneously one time a week. - cyanocobalamin (VITAMIN B-12) 1,000 mcg tab Take 1 tablet by mouth once daily. - cholecalciferol (VITAMIN D-3) 5,000 unit tab Take 1 tablet by mouth once daily. - esomeprazole (NEXIUM) 20 mg capsule Take 20 mg by mouth daily at 6 am. - Blood-Glucose Sensor ([employer] G7 SENSOR) john CHANGE SENSOR EVERY 10 days USE FOR CONTINUOUS GLUCOSE MONITORING. E11.9 - ondansetron orally disintegrating (ZOFRAN ODT) 4 mg disintegrating tablet Take 1 tablet by mouth every 6 hours as needed for nausea/vomiting. - lisinopril (ZESTRIL) 20 mg tablet Take 1 tablet by mouth two times a day. - atorvastatin (LIPITOR) 80 mg tablet Take 1 tablet by mouth daily at bedtime for cholesterol. - atenolol (TENORMIN) 100 mg tablet Take 1 tablet by mouth once daily. - gabapentin (NEURONTIN) 300 mg capsule Take 1 capsule by mouth two times a day for 180 days. - magnesium oxide (MAG-OX) 400 mg (241.3 mg magnesium) tablet Take 1 tablet by mouth two times a day. - nitroglycerin sublingual (NITROQUICK) 0.4 mg SL tablet Dissolve 1 tablet under the tongue as needed. FOR CHEST PAIN. IF NO RELIEF CALL 911 - blood sugar diagnostic (BLOOD GLUCOSE TEST) test strip Test blood sugar(s) one times daily. Dx: Type 2 DM - Uncontrolled E11.65 Insulin: No - glimepiride (AMARYL) 4 mg tablet Take 1 tablet by mouth twice daily with meals. - ezetimibe (ZETIA) 10 mg tablet Take 1 tablet by mouth once daily. - cyclobenzaprine (FLEXERIL) 10 mg tablet Take 1 tablet by mouth three times daily as needed for muscle spasm. - promethazine (PHENERGAN) 25 mg tablet Take 1 tablet by mouth every 6 hours as needed for nausea/vomiting. - meclizine (ANTIVERT) 25 mg tab Take 1 tablet by mouth three times daily as needed. - hydrOXYzine HCl (ATARAX) 25 mg tablet Take 1 tablet by mouth every 6 hours as needed for anxiety. - busPIRone (BUSPAR) 15 mg tablet Take 1 tablet by mouth three times daily. - Blood-Glucose Meter Test blood sugar(s) 1 times daily. Dx: Type 2 DM - Uncontrolled E11.65 Insulin: No - Lancets lancets Test blood sugar(s) 1 times daily. Dx: Type 2 DM - Uncontrolled E11.65 Insulin: No - albuterol HFA (PROVENTIL HFA, VENTOLIN HFA) 90 mcg/actuation inhaler Inhale 2 Puffs as instructed every 4 hours as needed for wheezing/shortness of breath. - diclofenac (VOLTAREN) 1 % topical gel Apply 2 g to affected area four times daily. - Lancets lancets Test blood sugar(s) 1 times daily. Dx: E11.65. Insulin: No - aspirin 81 mg chewable tablet Take 81 mg by mouth once daily. - Blood-Glucose Meter monitoring kit Glucose Meter of Choice - Kit - Dx: Type 2 DM - Uncontrolled E11.65 - multivitamins(DAILY MULTIVITAMIN TAB) Take one(1) tablet daily. Meds Comments as of 11/08/2023: November 08, 2023: Patient reports starting Diflucan in the last 30 days. Janeth Jennings RN 08/22/2019: No longer taking metformin. Ghislaine Austin RN (Nurse svp research & ebusiness operations). Also takes Paxil and a vitamin 1-1 S. KAUSHAL Bowman Problem List As Of Date 11/08/2023 Noted Resolved Routine gynecological examination [Z01.419] 07/27/2007 02/05/2017 Class: Chronic PERS HX PENICILLIN ALLERGY [Z88.0] 07/27/2007 Pure hypercholesterolemia [E78.00] Anxiety [F41.9] CLASS MIGRAIN W/O MENTN INTRACTABLE [G43.109] (more content not included)... Normal [facility] BACTERIAL VAGINOSIS NAATon 0 9- Lactobacillus crispatus+gasseri+je nsenii + Gardnerella vaginalis + Atopobium vaginae rRNA CAIO+probe Ql (Vag fld) Negative Normal Negative for bacterial vaginosis [facility] Comment on above: Order Comment: Speci men Type: SWABOrdering Facility: [facility] Address: [address] [place] [address] Performed By: #### C VTV, BVAMP ####[facility] LABCLIA [id number] [place] [address] [place] Bacteria Ur Culton 4 Bacteria identified Cx Nom (U) ORGANISM ID: 1 >=100,000 CFU/ml Mixed microbiota No further workup. Mixed microbiota can be due to???urine???contaminat ion with skin bacteria at time of collection or presence of a long-term urinary catheter. If a new culture is needed, please consider re-education of the patient on proper midstream collection technique or straight catheterization for???urine???collectio n. Normal [facility] Comment on above: Performed By: #### 6 30-4 ####[facility] LABCLIA [id number] [place] [address] [place] JAKOB/TRICHOMONAS NAATon 0 11-07-2023 C. glabrata RNA CAIO+probe Ql (Vag fld) Positive Abnormal Negative for Jakob glabrata [facility] Comment on above: Order Comment: Speci men Type: SWABOrdering Facility: [facility] Address: [address] [place] [address] Performed By: #### C VTV, BVAMP ####[facility] LABCLIA [id number] [place] [address] [place] Jakob sp DNA CAIO+probe Ql (Vag fld) Positive Abnormal Negative for Jakob species [facility] Comment on above: Order Comment: Speci men Type: SWABOrdering Facility: [facility] Address: [address] [place] [address] Performed By: #### C VTV, BVAMP ####[facility] LABCLIA [id number] [place] [address] [place] T. vaginalis DNA CAIO+probe Ql (Unsp spec) Negative Normal Negative for Trichomonas vaginalis by amplification [facility] Comment on above: Order Comment: Speci men Type: SWABOrdering Facility: [facility] Address: [address] [place] [address] Performed By: #### C VTV, BVAMP ####[facility] LABCLIA [id number] [id number] OF [facility] CNOVon 11-07-2023 CNOV Office Visit (UCWSTR ) CAMILA HARMON ([id number]) 1960 F Date Time Provider Department 11/07/23 10:00 AM ISAIAH RODRIGUEZ [facility] During your visit today, we recorded the following information about you: Temperature Pulse Respiration Blood pressure 97.9 degrees 80/minute 18/minute 112/72 Weight 90.3 kg Isaiah Rodriguez PA 11/07/2023 10:23 AM Signed This note was created using [employer]. Subjective Camila Harmon is a 63 year old female. HPI 63-year-old female presents for vaginal itching, vaginal discharge, dysuria. Patient states she has had vaginal itching for the past 3 weeks. She thinks she may have a yeast infection. She states she has been using Monistat qoeg-rcy-egcmbli. Last used Monistat 2 days ago. She states that her vagina is very itchy and she has white chunky discharge. Patient does have history of diabetes and states her sugars been slightly elevated today. She denies any concern for STD. Patient reports she has had some burning with urination. She has had UTIs in the past. She has had urinary urgency and frequency as well. No abdominal pain or back pain. No fevers. No vomiting. She denies any other complaint. Checked her sugar prior to arrival and it was 235. PAST MEDICAL HISTORY No date: Coronary artery disease No date: Depressive disorder, not elsewhere classified No date: Enlarged liver 07/06/2004: Excessive or frequent menstruation Comment: s/p TVH No date: Migraine with aura, without mention of intractable migraine without mention of status migrainosus No date: Other anxiety states No date: Pure hypercholesterolemia 11/06/2008: S/P primary angioplasty with coronary stent No date: Type II or unspecified type diabetes mellitus without mention of complication, not stated as uncontrolled PAST SURGICAL HISTORY 03/05/2017: CARPAL TUNNEL; Bilateral 07/19/2013: COLONOSCOPY FLX DX W/COLLJ SPEC WHEN PFRMD Comment: Colonoscopy No date: EXTRACTION, ERUPTED TOOTH OR EXPOSED ROOT (ELEVATION AND/OR FORCEPS REMOVAL) Comment: wisdom teeth 02/11/2022: HEART CATHETERIZATION; N/A No date: HYSTERECTOMY HX 02/22/2002: PAST SURGICAL HISTORY OF Comment: BREAST REDUCTION 2008, 2011: PAST SURGICAL HISTORY OF Comment: stent, LAD X2. 07/2004: VAGINAL HYSTERECTOMY UTERUS 250 GM/< Comment: Hysterectomy, vaginal ALLERGIES Penicillins, Percocet [Oxycodone-Acetaminophe n], and Tylenol-Codeine Elixir MEDICATIONS PARoxetine (PAXIL) 40 mg tablet Take 1 tablet by mouth once daily. pantoprazole DR (PROTONIX) 40 mg tablet Take 1 tablet by mouth daily before breakfast. Take on empty stomach, 1/2 hr before meal. PARoxetine (PAXIL) 10 mg tablet Take 1 tablet by mouth once daily. Take along with Paxil 40 mg tablet LORazepam (ATIVAN) 0.5 mg Take 2 tablets by mouth two times a day for 90 days. metFORMIN (GLUCOPHAGE) 500 mg tablet Take 1 tablet by mouth two times a day with meals. empagliflozin (JARDIANCE) 25 mg tablet Take 1 tablet once daily in the morning tirzepatide (MOUNJARO) 15 mg/0.5 mL pen injector Inject 15 mg subcutaneously one time a week. cyanocobalamin (VITAMIN B-12) 1,000 mcg tab Take 1 tablet by mouth once daily. cholecalciferol (VITAMIN D-3) 5,000 unit tab Take 1 tablet by mouth once daily. esomeprazole (NEXIUM) 20 mg capsule Take 20 mg by mouth daily at 6 am. ondansetron orally disintegrating (ZOFRAN ODT) 4 mg disintegrating tablet Take 1 tablet by mouth every 6 hours as needed for nausea/vomiting. lisinopril (ZESTRIL) 20 mg tablet Take 1 tablet by mouth two times a day. atorvastatin (LIPITOR) 80 mg tablet Take 1 tablet by mouth daily at bedtime for cholesterol. atenolol (TENORMIN) 100 mg tablet Take 1 tablet by mouth once daily. gabapentin (NEURONTIN) 300 mg capsule Take 1 capsule by mouth two times a day for 180 days. magnesium oxide (MAG-OX) 400 mg (241.3 mg magnesium) tablet Take 1 tablet by mouth two times a day. nitroglycerin sublingual (NITROQUICK) 0.4 mg SL tablet Dissolve 1 tablet under the tongue as needed. FOR CHEST PAIN. IF NO RELIEF CALL 911 blood sugar diagnostic (BLOOD GLUCOSE TEST) test strip Test blood sugar(s) one times daily. Dx: Type 2 DM - Uncontrolled E11.65 Insulin: No glimepiride (AMARYL) 4 mg tablet Take 1 tablet by mouth twice daily with meals. ezetimibe (ZETIA) 10 mg tablet Take 1 tablet by mouth once daily. cyclobenzaprine (FLEXERIL) 10 mg tablet Take 1 tablet by mouth three times daily as needed for muscle spasm. meclizine (ANTIVERT) 25 mg tab Take 1 tablet by mouth three times daily as needed. hydrOXYzine HCl (ATARAX) 25 mg tablet Take 1 tablet by mouth every 6 hours as needed for anxiety. busPIRone (BUSPAR) 15 mg tablet Take 1 tablet by mouth three times daily. Blood-Glucose Meter Test blood sugar(s) 1 times daily. Dx: Type 2 DM - Uncontrolled E11.65 Insulin: No Lancets lancets Test blood sugar(s) 1 (more content not included)... Normal [facility] UA DIP, URINE (POC)on 2023 BILIRUBIN UA (POCT) Negative Negative [facility] CLARITY UA (POCT) Clear [facility] COLOR UA (POCT) Yellow [facility] GLUCOSE UA (POCT) >=1000 Abnormal Negative mg/dL [facility] Hemoglobin Ql (U) Negative Negative [facility] Interpretation and review of laboratory results Abnormal [facility] KETONE UA (POCT) Negative Negative mg/dL [facility] LEUKOCYTES UA (POCT) Negative Negative [facility] NITRITE UA (POCT) Negative Negative [facility] PH UA (POCT) 5.5 4.5 - 8.0 [facility] Protein Ql (U) Negative Negative mg/dL [facility] SPECIFIC GRAVITY UA (POCT) 1.010 1.005 - 1.030 [facility] UROBILINOGEN UA (POCT) 0.2 Normal E.U./dL [facility] Location:[address], [place], [place], [id number] [place] [address] POINT OF CARE [facility] CBC W Auto Differential pane l (Bld)on 10-07-2023 Basophils (Bld) [#/Vol] 0.05 10*3/uL Normal <0.11 [facility] Comment on above: Order Comment: Speci men Type: BLOOD SPECIMEN Ordering Facility: [facility] Address: [address] [place] [address] Performed By: #### 1 9123-9, 49175-1, [id number] #### [facility] CLIA [id number] [address] [place] [address] [place] Basophils/100 WBC (Bld) 0.4 % Normal [facility] Comment on above: Order Comment: Speci men Type: BLOOD SPECIMEN Ordering Facility: [facility] Address: [address] [place] [address] Performed By: #### 1 9123-9, 83943-8, [id number] #### [facility] CLIA [id number] [address] [place] [address] [place] Differential cell count method Nom (Bld) Auto Normal [facility] Comment on above: Order Comment: Speci men Type: BLOOD SPECIMEN Ordering Facility: [facility] Address: [address] [place] [address] Performed By: #### 1 9123-9, 93148-8, [id number] #### [facility] CLIA [id number] [address] [place] [address] [place] Eosinophils (Bld) [#/Vol] 0.28 10*3/uL Normal <0.46 [facility] Comment on above: Order Comment: Speci men Type: BLOOD SPECIMEN Ordering Facility: [facility] Address: [address] [place] [address] Performed By: #### 1 9123-9, 53756-5, [id number] #### [facility] CLIA [id number] [address] [place] [address] [place] Eosinophils/100 WBC (Bld) 2.5 % Normal [facility] Comment on above: Order Comment: Speci men Type: BLOOD SPECIMEN Ordering Facility: [facility] Address: [address] [place] [address] Performed By: #### 1 23-9, , [id number] #### [facility] CLIA [id number] [address] [place] [address] [place] Erythrocyte distribution width (RBC) [Ratio] 15.2 % High 11.5-15.0 [facility] Comment on above: Order Comment: Speci men Type: BLOOD SPECIMEN Ordering Facility: [facility] Address: [address] [place] [address] Performed By: #### 1 239, , [id number] #### [facility] CLIA [id number] [address] [place] [address] [place] Hematocrit (Bld) [Volume fraction] 42.1 % Normal 36.0-46.0 [facility] Comment on above: Order Comment: Speci men Type: BLOOD SPECIMEN Ordering Facility: [facility] Address: [address] [place] [address] Performed By: #### 1 23-9, , [id number] #### [facility] CLIA [id number] [address] [place] [address] [place] Hemoglobin (Bld) [Mass/Vol] 14.0 g/dL Normal 11.5-15.5 [facility] Comment on above: Order Comment: Speci men Type: BLOOD SPECIMEN Ordering Facility: [facility] Address: [address] [place] [address] Performed By: #### 1 9123-9, , [id number] #### [facility] CLIA [id number] [address] [place] [address] [place] Immature granulocytes (Bld) [#/Vol] 0.04 10*3/uL Normal <0.10 [facility] Comment on above: Order Comment: Speci men Type: BLOOD SPECIMEN Ordering Facility: [facility] Address: [address] [place] [address] Performed By: #### 1 9123-9, 79493-8, [id number] #### [facility] CLIA [id number] [address] [place] [address] [place] Immature granulocytes/100 WBC (Bld) 0.4 % Normal [facility] Comment on above: Order Comment: Speci men Type: BLOOD SPECIMEN Ordering Facility: [facility] Address: [address] [place] [address] Performed By: #### 1 9123-9, 81567-6, [id number] #### [facility] CLIA [id number] [address] [place] [address] [place] Lymphocytes (Bld) [#/Vol] 2.64 10*3/uL Normal 1.00-4.00 [facility] Comment on above: Order Comment: Speci men Type: BLOOD SPECIMEN Ordering Facility: [facility] Address: [address] [place] [address] Performed By: #### 1 9123-9, 22796-8, [id number] #### [facility] CLIA [id number] [address] Lymphocytes/100 WBC (Bld) 23.7 % Normal [facility] Comment on above: Order Comment: Speci men Type: BLOOD SPECIMEN Ordering Facility: [facility] Address: [address] [place] [address] Performed By: #### 1 9123-9, 56642-2, [id number] #### [facility] CLIA [id number] [address] [place] [address] [place] MCH (RBC) [Entitic mass] 29.8 pg Normal 26.0-34.0 [facility] Comment on above: Order Comment: Speci men Type: BLOOD SPECIMEN Ordering Facility: [facility] Address: [address] [place] [address] Performed By: #### 1 9123-9, , [id number] #### [facility] CLIA [id number] [address] STATES [facility] MCHC (RBC) [Mass/Vol] 33.3 g/dL Normal 30.5-36.0 [facility] Comment on above: Order Comment: Speci men Type: BLOOD SPECIMEN Ordering Facility: [facility] Address: [address] [place] [address] Performed By: #### 1 9123-9, , [id number] #### [facility] CLIA [id number] [address] STATES [facility] MCV (RBC) [Entitic vol] 89.6 fL Normal 80.0-100.0 [facility] Comment on above: Order Comment: Speci men Type: BLOOD SPECIMEN Ordering Facility: [facility] Address: [address] [place] [address] Performed By: #### 1 239, , [id number] #### [facility] CLIA [id number] [address] [place] Monocytes (Bld) [#/Vol] 0.81 10*3/uL Normal <0.87 [facility] Comment on above: Order Comment: Speci men Type: BLOOD SPECIMEN Ordering Facility: [facility] Address: [address] [place] [address] Performed By: #### 1 23-9, , [id number] #### [facility] CLIA [id number] [address] Monocytes/100 WBC (Bld) 7.3 % Normal [facility] Comment on above: Order Comment: Speci men Type: BLOOD SPECIMEN Ordering Facility: [facility] Address: [address] [place] [address] Performed By: #### 1 9123-9, , [id number] #### [facility] CLIA [id number] [address] [place] Neutrophils (Bld) [#/Vol] 7.30 10*3/uL Normal 1.45-7.50 [facility] Comment on above: Order Comment: Speci men Type: BLOOD SPECIMEN Ordering Facility: [facility] Address: [address] [place] [address] Performed By: #### 1 23-9, 96156-2, [id number] #### [facility] CLIA [id number] [address] [place] [address] [facility] [place] Neutrophils/100 WBC (Bld) 65.7 % Normal [facility] Comment on above: Order Comment: Speci men Type: BLOOD SPECIMEN Ordering Facility: [facility] Address: [address] [place] [address] Performed By: #### 1 9123-9, 98568-6, [id number] #### [facility] CLIA [id number] [address] [place] [address] [place] Nucleated RBC (Bld) [#/Vol] 10*3/uL Normal <0.01 [facility] Comment on above: Order Comment: Speci men Type: BLOOD SPECIMEN Ordering Facility: [facility] Address: [address] [place] [address] Performed By: #### 1 23-9, 44085-7, [id number] #### [facility] CLIA [id number] [address] [place] [address] [place] Nucleated RBC/100 WBC (Bld) [Ratio] 0.0 /100 WBC Normal [facility] Comment on above: Order Comment: Speci men Type: BLOOD SPECIMEN Ordering Facility: [facility] Address: [address] [place] [address] Performed By: #### 1 23-9, 58074-3, [id number] #### [facility] CLIA [id number] [address] [place] [address] [place] Platelet mean volume (Bld) [Entitic vol] 11.2 fL Normal 9.0-12.7 [facility] Comment on above: Order Comment: Speci men Type: BLOOD SPECIMEN Ordering Facility: [facility] Address: [address] [place] [address] Performed By: #### 1 23-9, 61114-1, [id number] #### [facility] CLIA [id number] [address] [place] [address] [facility] [place] Platelets (Bld) [#/Vol] 248 10*3/uL Normal 150-400 [facility] Comment on above: Order Comment: Speci men Type: BLOOD SPECIMEN Ordering Facility: [facility] Address: [address] [place] [address] Performed By: #### 1 9123-9, 59856-6, [id number] #### [facility] CLIA [id number] [address] [place] [address] [place] RBC (Bld) [#/Vol] 4.70 10*6/uL Normal 3.90-5.20 [facility] Comment on above: Order Comment: Speci men Type: BLOOD SPECIMEN Ordering Facility: [facility] Address: [address] [place] [address] Performed By: #### 1 9123-9, 42120-1, [id number] #### [facility] CLIA [id number] [address] OF [facility] WBC (Bld) [#/Vol] 11.12 10*3/uL High 3.70-11.00 [facility] Comment on above: Order Comment: Speci men Type: BLOOD SPECIMEN Ordering Facility: [facility] Address: [address] [place] [address] Performed By: #### 1 9123-9, 13513-8, [id number] #### [facility] CLIA [id number] [address] [place] Comprehensive metabolic 2000 panelon 10-07-2023 Albumin [Mass/Vol] 4.3 g/dL Normal 3.9-4.9 [facility] Comment on above: Order Comment: Speci men Type: BLOOD SPECIMEN Ordering Facility: [facility] Address: [address] [place] [address] Performed By: #### 1 9123-9, 63728-5, [id number] #### [facility] CLIA [id number] [address] [place] ALP [Catalytic activity/Vol] 85 U/L Normal 34-123 [facility] Comment on above: Order Comment: Speci men Type: BLOOD SPECIMEN Ordering Facility: [facility] Address: [address] [place] [address] Performed By: #### 1 9123-9, 77263-9, [id number] #### [facility] CLIA [id number] [address] [place] [address] [place] ALT [Catalytic activity/Vol] 22 U/L Normal 7-38 [facility] Comment on above: Order Comment: Speci men Type: BLOOD SPECIMEN Ordering Facility: [facility] Address: [address] [place] [address] Performed By: #### 1 23-9, 98487-1, [id number] #### [facility] CLIA [id number] [address] [place] Anion gap [Moles/Vol] 15 mmol/L Normal 8-15 [facility] Comment on above: Order Comment: Speci men Type: BLOOD SPECIMEN Ordering Facility: [facility] Address: [address] [place] [address] Performed By: #### 1 23-9, 36916-1, [id number] #### [facility] CLIA [id number] [address] [place] AST [Catalytic activity/Vol] Normal [facility] Comment on above: Order Comment: Speci men Type: BLOOD SPECIMEN Ordering Facility: [facility] Address: [address] [place] [address] Result Comment: Unab le to assay due to interference from hemolysis. Suggest reorder as clinically indicated. Performed By: #### 1 23-9, 71359-0, [id number] #### [facility] CLIA [id number] [address] [place] Bilirubin [Mass/Vol] 1.3 mg/dL Normal 0.2-1.3 [facility] Comment on above: Order Comment: Speci men Type: BLOOD SPECIMEN Ordering Facility: [facility] Address: [address] [place] [address] Performed By: #### 1 9123-9, 04322-8, [id number] #### [facility] CLIA [id number] [address] [place] [address] [place] Calcium [Mass/Vol] 9.3 mg/dL Normal 8.5-10.2 [facility] Comment on above: Order Comment: Speci men Type: BLOOD SPECIMEN Ordering Facility: [facility] Address: [address] [place] [address] Performed By: #### 1 9123-9, 91268-0, [id number] #### [facility] CLIA [id number] [address] [place] [address] [place] Chloride [Moles/Vol] 103 mmol/L Normal 98-107 [facility] Comment on above: Order Comment: Speci men Type: BLOOD SPECIMEN Ordering Facility: [facility] Address: [address] [place] [address] Performed By: #### 1 9123-9, 84794-1, [id number] #### [facility] CLIA [id number] [address] [place] [address] [place] CO2 [Moles/Vol] 21 mmol/L Low 22-30 [facility] Comment on above: Order Comment: Speci men Type: BLOOD SPECIMEN Ordering Facility: [facility] Address: [address] [place] [address] Performed By: #### 1 9123-9, 74438-0, [id number] #### [facility] CLIA [id number] [address] [place] [address] [place] Creatinine [Mass/Vol] 0.78 mg/dL Normal 0.58-0.96 [facility] Comment on above: Order Comment: Speci men Type: BLOOD SPECIMEN Ordering Facility: [facility] Address: [address] [place] [address] Performed By: #### 1 9123-9, 68591-7, [id number] #### [facility] CLIA [id number] [address] [place] Creatinine and Glomerular filtration rate.predicted panel (S/P/Bld) 87 mL/min/1.73m??? Normal >=60 [facility] Comment on above: Order Comment: Speci men Type: BLOOD SPECIMEN Ordering Facility: [facility] Address: [address] [place] [address] Result Comment: Gin mated Glomerular Filtration Rate (eGFR) is calculated using the 2020 CKD-EPI creatinine equation. This equation utilizes serum creatinine, sex, and age as parameters. The creatinine assay has traceable calibration to isotope dilution-mass spectrometry. Refer to KDIGO guidelines for clinical interpretation. In patients with unstable renal function, e.g. those with acute kidney injury, the eGFR may not accurately reflect actual GFR. Performed By: #### 1 9123-9, 68167-3, [id number] #### [facility] CLIA [id number] [address] [place] [address] [place] Glucose [Mass/Vol] 214 mg/dL High 74-99 [facility] Comment on above: Order Comment: Luke viera Type: BLOOD SPECIMEN Ordering Facility: [facility] Address: [address] [place] [address] Result Comment: The [place] Diabetes Association (ADA) provides guidance for cutoff values for fasting glucose and random glucose. The ADA defines fasting as no caloric intake for at least 8 hours. Fasting plasma glucose results between 100 to 125 mg/dL indicate increased risk for diabetes (prediabetes). Fasting plasma glucose results greater than or equal to 126 mg/dL meet the criteria for diagnosis of diabetes. In the absence of unequivocal hyperglycemia, results should be confirmed by repeat testing. In a patient with classic symptoms of hyperglycemia or hyperglycemic crisis, random plasma glucose results greater than or equal to 200 mg/dL meet the criteria for diagnosis of diabetes. Reference: Standards of Medical Care in Diabetes 2016, [place] Diabetes Association. Diabetes Care. 2016.39(Suppl 1). Performed By: #### 1 9123-9, 19294-4, [id number] #### [facility] CLIA [id number] [address] [place] [id number] [place] Potassium [Moles/Vol] 4.3 mmol/L Normal 3.7-5.1 [facility] Comment on above: Order Comment: Luke viera Type: BLOOD SPECIMEN Ordering Facility: [facility] Address: [address] [id number] Performed By: #### 1 9123-9, 44006-3, [id number] #### [facility] CLIA [id number] [address] [place] Protein [Mass/Vol] 7.0 g/dL Normal 6.3-8.0 [facility] Comment on above: Order Comment: Speci men Type: BLOOD SPECIMEN Ordering Facility: [facility] Address: [address] [place] [address] Performed By: #### 1 9123-9, 45831-7, [id number] #### [facility] CLIA [id number] [address] [place] Sodium [Moles/Vol] 139 mmol/L Normal 136-144 [facility] Comment on above: Order Comment: Speci men Type: BLOOD SPECIMEN Ordering Facility: [facility] Address: [address] [place] [address] Performed By: #### 1 9123-9, 99824-2, [id number] #### [facility] CLIA [id number] [address] [place] Urea nitrogen [Mass/Vol] 22 mg/dL High 7-21 [facility] Comment on above: Order Comment: Speci men Type: BLOOD SPECIMEN Ordering Facility: [facility] Address: [address] [place] [address] Performed By: #### 1 9123-9, 70047-9, [id number] #### [facility] CLIA [id number] [address] [place] ECG COMPLETEon 10-07-2023 ECG COMPLETE Ventricular Rate : 7 1 BPM Atrial Rate : 71 BPM P-R Interval : 154 ms QRS Duration : 92 ms Q-T Interval : 404 ms QTC Calculation(Bazett) : 439 ms Calculated P [place] : 46 degrees Calculated R [place] : 7 degrees Calculated T [place] : 28 degrees NORMAL SINUS RHYTHM NORMAL ECG NO STEMI NO CHANGE 04/14/22 Confirmed by SUMAN DA SILVA ([id number]), supervising editor news reel WILDA MELGAR ([id number]) on 10/08/2023 6:51:20 AM NAME : CAMILA HARMON PID : [id number] : 1960 Gender : Female Race : ORD : [id number] Procedure Date : Oct 07 2023 18:22:51 Edit Date : Oct 08 2023 06:51:28 Diagnosis: NORMAL SINUS RHYTHM NORMAL ECG NO STEMI NO CHANGE 04/14/22 Confirmed by USMAN DA SILVA ([id number]), supervising editor news reel WILDA MELGAR ([id number]) on 10/08/2023 6:51:20 AM Test Reason : Chest Pain Location : 1 : ER ED Overread By : SUMAN DA SILVA Edited By : WILDA MELGAR Referred By : , Acquired by : PATTI, [facility] ED NOTEon 10-07-2023 ED NOTE HNO ID: [id number] Author: MALU CHEN RN Service: Nursing Author Type: Registered Nurse Type: ED Notes Filed: 10/07/2023 22:24 Note Text: Pt is being discharged home in stable condition, with spouse. Breathing even and unlabored, color good, skin warm and dry. Pt reports that her pain is better at this time. Discharge instructions,and follow up reviewed, pt verbalized understanding, with no further questions for this nurse. Pt was provided with a copy of discharge instructions . IV removed, no bleeding noted. Pt was encouraged to return to ED as needed, for persistent or worsening symptoms or any new concerns, pt verbalized understanding. Pt ambulated off ED in no distress, with spouse. [facility] ED PROV NOTEon 10-07-2023 ED PROV NOTE HNO ID: [id number] Author: SHIVAM SUGGS MD Service: Emergency Medicine Author Type: Physician Type: ED Provider Notes Filed: 10/07/2023 21:55 Note Text: ED CONTINUATION OF CARE NOTE Code Status: Full Code Assumed care from: papa Presentation / Findings / Interventions / Plan / Items to Follow Up: 62-year-old female. Signed out to me this evening with second troponin pending. She tells me that she has had several days of symptoms which include pain across her chest and her upper back and her shoulders. She also has some upper abdominal discomfort. She denies any nausea or vomiting. The symptoms do not appear to be worsened or improved with eating. She reports that she feels like these are likely stress-induced. She reports significant stress from work at this time and she has a physically laborious job and she feels this is contributing. Her EKG is unremarkable and does not appear to be changed from previous. Her blood work here is reassuring. No elevation of liver enzymes or heart enzymes. Her blood work some unremarkable. Chest x-ray does not appear to have any acute abnormalities on my review. I agree with radiology interpretation. She does have a history of coronary artery disease with stenting previously. I did recommend observation admission but patient declines at this time. She reports that she declines because she has to work. She expressed understanding of all risks and benefits associated with discharge at this time and expressed understanding of the ability to return for reevaluation at any time should she choose. Discharged upon her request. ED Course as of 10/07/232104 Others' Documentation Sravanthi Oct 07, 2023 183 EKG is normal sinus rhythm rate of 71. Normal intervals and axis. No injury ischemia or infarct pattern. [PH] ED Course User Index [PH] Suman Da Silva MD Clinical Impressions as of 10/07/232104 Chest pain of uncertain etiology Anxiety Hypertension, essential Medical Decision Making SIGNATURE: Shivam Suggs MD PATIENT NAME: Camila Harmon DATE: October 07, 2023 TIME: 9:05 PM PAGER/CONTACT #: SHIVAM SUGGS 10/07/232154 Normal [facility] ED PROV NOTE HNO ID: [id number] Author: SUMAN DA SILVA MD Service: Emergency Medicine Author Type: Physician Type: ED Provider Notes Filed: 10/07/2023 20:22 Note Text: ED Provider Note Patient Name: Camila Harmon : 1960 SERVICE DATE: 10/07/23 History Patient presents with: Chest Pain: Constant chest pain for the past three days, going across her chest and into her back, has a Hx of stents being placed, pt took a nitro yesterday that helped a bit, pt states pain takes her breath away Shortness of Breath This is a 62-year-old female with chest pain. Said it for the past 3 days. Across her chest and goes into her back. Also into her abdomen. Nothing makes it better or worse. She thinks could be related to stress. 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 They have not had any help. She denies any cough or mucus production. No respiratory problems. Patient's had stents about 2008 2010. There is a strong family history of coronary disease, [place], CHF. PAST MEDICAL HISTORY No date: Coronary artery disease No date: Depressive disorder, not elsewhere classified No date: Enlarged liver 07/06/2004: Excessive or frequent menstruation Comment: s/p TVH No date: Migraine with aura, without mention of intractable migraine without mention of status migrainosus No date: Other anxiety states No date: Pure hypercholesterolemia 11/06/2008: S/P primary angioplasty with coronary stent No date: Type II or unspecified type diabetes mellitus without mention of complication, not stated as uncontrolled PAST SURGICAL HISTORY 03/05/2017: CARPAL TUNNEL; Bilateral 07/19/2013: COLONOSCOPY FLX DX W/COLLJ SPEC WHEN PFRMD Comment: Colonoscopy No date: EXTRACTION, ERUPTED TOOTH OR EXPOSED ROOT (ELEVATION AND/OR FORCEPS REMOVAL) Comment: wisdom teeth 02/11/2022: HEART CATHETERIZATION; N/A No date: HYSTERECTOMY HX 02/22/2002: PAST SURGICAL HISTORY OF Comment: BREAST REDUCTION 2008, 2011: PAST SURGICAL HISTORY OF Comment: stent, LAD X2. 07/2004: VAGINAL HYSTERECTOMY UTERUS 250 GM/< Comment: Hysterectomy, vaginal FAMILY HISTORY Problem Relation Age of Onset Hypertension Mother Diabetes Mother Heart Mother [place], age 72; first dx age late 60's Lipids Mother Stroke Mother Blindness Mother Hypertension Father Lipids Father Diabetes Father Social History Tobacco Use Smoking status: Former Years: 3 Types: Cigarettes Quit date: 06/02/2020 Years since quittin.3 Smokeless tobacco: Never Tobacco comments: social smoking for 3 years. Occasional smoking when upset Vaping Use Vaping Use: Never used Substance and Sexual Activity Alcohol use: Yes Comment: Socially Drug use: No Sexual activity: Yes Partners: Male Comment: TVH ALLERGIES Allergen Reactions Penicillins Hives Percocet [Oxycodone* GI Upset Tylenol-Codeine Prerna* Other: See Comments halucinations Review of Systems Cardiovascular: Positive for chest pain. Physical Exam Vitals [10/07/23 1824] BP Pulse Temp Temp src Resp SpO2 Weight Height 142/62 71 36.7 ?C (98 ?F) Oral 18 97 % 90.7 kg (200 lb) 1.549 m (5' 1) Physical Exam Vitals and nursing note reviewed. Constitutional: Appearance: Normal appearance. HENT: Head: Normocephalic and atraumatic. Mouth/Throat: Mouth: Mucous membranes are moist. Eyes: Extraocular Movements: Extraocular movements intact. Conjunctiva/sclera: Conjunctivae normal. Pupils: Pupils are equal, round, and reactive to light. Cardiovascular: Rate and Rhythm: Normal rate and regular rhythm. Pulses: Normal pulses. Radial pulses are 2+ on the right side and 2+ on the left side. Dorsalis pedis pulses are 2+ on the right side and 2+ on the left side. Heart sounds: Normal heart sounds. Pulmonary: Effort: Pulmonary effort is normal. Breath sounds: Normal breath sounds. Abdominal: General: Abdomen is flat. Palpations: Abdomen is soft. Musculoskeletal: General: Normal range of motion. Cervical back: Neck supple. Right lower leg: No tenderness. No edema. Left lower leg: No tenderness. No edema. Skin: General: Skin is warm and dry. Capillary Refill: Capillary refill takes less than 2 seconds. Neurological: General: No focal deficit present. Mental Status: She is alert and oriented to person, place, and time. Psychiatric: Behavior: Behavior normal. Diagnostic Testing ED Labs Ordered and Reviewed COMPREHENSIVE METABOLIC PANEL - Abnormal; Notable for the following components: Result Value Ref Range Glucose 214 (*) 74 - 99 mg/dL BUN 22 (*) 7 - 21 mg/dL CO2 21 (*) 22 - 30 mmol/L All other components within normal limits MAGNESIUM - Abnormal; Notable for the following components: Magnesium 1.6 (*) 1.7 - 2.3 mg/dL All other components within normal limits COMPLETE BLOOD COUNT AND DIFFERENTIAL - Abnormal; Notable for the following components: WBC 11.12 (*) 3.70 - 11.00 k/uL RDW-CV 15.2 (*) 11.5 - 15 (more content not included)... Normal [facility] HIGH SENSITIVITY TROPONIN T (INITIAL)on 10-07-2023 Troponin T.cardiac High sensitivity method [Mass/Vol] 10 ng/L Normal <12 [facility] Comment on above: Order Comment: Speci men Type: BLOOD SPECIMEN Ordering Facility: [facility] Address: [address] [place] [address] Performed By: #### 1 9123-9, 58031-3, [id number] #### [facility] CLIA [id number] [address] [place] [address] [place] HIGH SENSITIVITY TROPONIN T (SECOND)on 10-07-2023 Troponin T.cardiac High sensitivity method [Mass/Vol] 8 ng/L Normal <12 [facility] Comment on above: Order Comment: Luke viera Type: BLOOD SPECIMEN Ordering Facility: [facility] Address: [address] [place] [address] Performed By: #### L [id number] #### [facility] CLIA [id number] [address] [place] [id number] [place] Magnesium SerPl-mCncon 10-06 Magnesium [Mass/Vol] 1.6 mg/dL Low 1.7-2.3 [facility] Comment on above: Order Comment: Luke viera Type: BLOOD SPECIMEN Ordering Facility: [facility] Address: [address] [place] [address] Performed By: #### 1 9123-9, 20811-0, [id number] #### [facility] CLIA [id number] [address] [place] XR CHEST 2V FRONTAL/LATon XR CHEST 2V FRONTAL/LAT * * *Final Report* * * DATE OF EXAM: Oct 07 2023 6:37PM MDX [id number] - XR CHEST 2V FRONTAL/LAT / PROCEDURE REASON: Chest Pain * * * * Physician Interpretation * * * * EXAMINATION: CHEST RADIOGRAPH (2 VIEW FRONTAL and LATERAL) CLINICAL HISTORY: Chest Pain MQ: XC2_6 EXAM DATE/TIME: 10/07/2023 6:37 PM COMPARISON: 12/24/2021 RESULT: Lines, tubes, and devices: None. Lungs and pleura: No consolidation. No lung mass. No pleural effusion. No pneumothorax. Cardiomediastinal silhouette: Normal cardiomediastinal silhouette. Bones and soft tissues: Degenerative changes and hypertrophic spurring in the thoracic spine. IMPRESSION: No acute radiographic abnormality. Ob Scrub Tech: AISSATOU Transcribe Date/Time: Oct 07 2023 7:11P Dictated by : CHIRAG GOLDEN MD This examination was interpreted and the report reviewed and electronically signed by: CHIRAG GOLDEN MD on Oct 07 2023 7:12PM EST [id number] [facility] Telephone (PSYCHA) CAMILA HARMON ([id number]) 1960 F Date Time Provider Department 10/04/23 SAMRA DICKENS PSYCHA During your visit today, we recorded the following information about you: Roma Rhodes LPN 10/04/2023 11:55 AM Signed Pt was scheduled wrong for a new pt consult in person for 10/04 and Samra would like her rescheduled. Cancelled appt and pt is aware you will be contacting her for a new appt date/time. FABI Marin Elizabeth, MA 10/05/2023 12:02 PM Signed Tried calling patient no answer and was advised scheduled 12/09 at 10 am for new consult virtually. Patient was given office number to r/s if not compatible with schedule. Advised in person farther out due to only in office once a week at [facility]. Татьяна Barragan MA Allergies As of Date: 10/04/2023 Noted Allergy Reaction PENICILLINS 06/29/2005 4 - Hives PERCOCET (OXYCODONE-ACETAMINOPHE N)08/31/2007 8 - GI Upset TYLENOL-CODEINE ELIXIR 05/21/2010 14 - Other: See Comments Comments: halucinations Date Reviewed: 09/29/2023 Reviewed by: Nargis Reynaga LPN - Fully Assessed Reason for Visit: New pt appt [Other] Prescriptions as of 10/05/2023 - PARoxetine (PAXIL) 10 mg tablet Take 1 tablet by mouth once daily. Take along with Paxil 40 mg tablet - LORazepam (ATIVAN) 0.5 mg Take 2 tablets by mouth two times a day for 90 days. - metFORMIN (GLUCOPHAGE) 500 mg tablet Take 1 tablet by mouth two times a day with meals. - empagliflozin (JARDIANCE) 25 mg tablet Take 1 tablet once daily in the morning - tirzepatide (MOUNJARO) 15 mg/0.5 mL pen injector Inject 15 mg subcutaneously one time a week. - cyanocobalamin (VITAMIN B-12) 1,000 mcg tab Take 1 tablet by mouth once daily. - cholecalciferol (VITAMIN D-3) 5,000 unit tab Take 1 tablet by mouth once daily. - esomeprazole (NEXIUM) 20 mg capsule Take 20 mg by mouth daily at 6 am. - Blood-Glucose Sensor ([employer] [place] G7 SENSOR) john CHANGE SENSOR EVERY 10 days USE FOR CONTINUOUS GLUCOSE MONITORING. E11.9 - ondansetron orally disintegrating (ZOFRAN ODT) 4 mg disintegrating tablet Take 1 tablet by mouth every 6 hours as needed for nausea/vomiting. - lisinopril (ZESTRIL) 20 mg tablet Take 1 tablet by mouth two times a day. - atorvastatin (LIPITOR) 80 mg tablet Take 1 tablet by mouth daily at bedtime for cholesterol. - atenolol (TENORMIN) 100 mg tablet Take 1 tablet by mouth once daily. - gabapentin (NEURONTIN) 300 mg capsule Take 1 capsule by mouth two times a day for 180 days. - pantoprazole DR (PROTONIX) 40 mg tablet Take 1 tablet by mouth daily before breakfast. Take on empty stomach, 1/2 hr before meal. - magnesium oxide (MAG-OX) 400 mg (241.3 mg magnesium) tablet Take 1 tablet by mouth two times a day. - nitroglycerin sublingual (NITROQUICK) 0.4 mg SL tablet Dissolve 1 tablet under the tongue as needed. FOR CHEST PAIN. IF NO RELIEF CALL 911 - blood sugar diagnostic (BLOOD GLUCOSE TEST) test strip Test blood sugar(s) one times daily. Dx: Type 2 DM - Uncontrolled E11.65 Insulin: No - PARoxetine (PAXIL) 40 mg tablet Take 1 tablet by mouth once daily. - glimepiride (AMARYL) 4 mg tablet Take 1 tablet by mouth twice daily with meals. - ezetimibe (ZETIA) 10 mg tablet Take 1 tablet by mouth once daily. - cyclobenzaprine (FLEXERIL) 10 mg tablet Take 1 tablet by mouth three times daily as needed for muscle spasm. - promethazine (PHENERGAN) 25 mg tablet Take 1 tablet by mouth every 6 hours as needed for nausea/vomiting. - meclizine (ANTIVERT) 25 mg tab Take 1 tablet by mouth three times daily as needed. - hydrOXYzine HCl (ATARAX) 25 mg tablet Take 1 tablet by mouth every 6 hours as needed for anxiety. - busPIRone (BUSPAR) 15 mg tablet Take 1 tablet by mouth three times daily. - Blood-Glucose Meter Test blood sugar(s) 1 times daily. Dx: Type 2 DM - Uncontrolled E11.65 Insulin: No - Lancets lancets Test blood sugar(s) 1 times daily. Dx: Type 2 DM - Uncontrolled E11.65 Insulin: No - albuterol HFA (PROVENTIL HFA, VENTOLIN HFA) 90 mcg/actuation inhaler Inhale 2 Puffs as instructed every 4 hours as needed for wheezing/shortness of breath. - diclofenac (VOLTAREN) 1 % topical gel Apply 2 g to affected area four times daily. - Lancets lancets Test blood sugar(s) 1 times daily. Dx: E11.65. Insulin: No - aspirin 81 mg chewable tablet Take 81 mg by mouth once daily. - Blood-Glucose Meter monitoring kit Glucose Meter of Choice - Kit - Dx: Type 2 DM - Uncontrolled E11.65 - multivitamins(DAILY MULTIVITAMIN TAB) Take one(1) tablet daily. Meds Comments as of 08/22/2019: 08/22/2019: No longer taking metformin. Ghislaine Austin RN (Nurse svp research & ebusiness operations). Also takes Paxil and a vitamin 1-1 Brianna Bowman RN Problem List As Of Date 10/04/2023 Noted Resolved Routine gynecological examination [Z01.419] 07/27/2007 02/05/2017 Class: Chronic (more content not included)... Normal [facility] ALBUMIN/CREATININE RATIO, UR INEon 09-29-2023 Albumin DL <= 20 mg/L (U) [Mass/Vol] mg/dL Normal [facility] Comment on above: Order Comment: Speci men Type: URINE SPECIMENOrdering Facility: [facility] Address: [address] [place] [address] Performed By: #### U ACR ####[facility] [id number] [address] [facility] Albumin/Creatinine (U) [Mass ratio] <22 Normal <30 [facility] Comment on above: Order Comment: Speci men Type: URINE SPECIMENOrdering Facility: [facility] Address: [address] [place] [address] Result Comment: Adul t Male and Female Nephrotic Criteria: <30 mg/g is considered normal to mildly increased 30-300 mg/g is considered moderately increased >300 mg/g is considered severely increased KDIGO. (2013). KDIGO 2012 Clinical Practice Guideline for the Evaluation and Management of Chronic Kidney Disease. Official Journal of the International Society of Nephrology, 3(1), 1-150. Performed By: #### U ACR ####[facility]IA [id number] [address] [place] Creatinine (U) [Mass/Vol] 54.9 mg/dL Normal 20.0-300.0 [facility] Comment on above: Order Comment: Speci men Type: URINE SPECIMENOrdering Facility: [facility] Address: [address] [place] [address] Performed By: #### U ACR ####[facility]IA [id number] [address] [place] CNOVon 09-29-2023 [facility] CAM[facility] HARMON ([id number]) 1960 F Date Time Provider Department 09/29/23 4:00 PM [facility] During your visit today, we recorded the following information about you: Pulse Respiration Blood pressure Weight 71/minute 16/minute 110/58 90.7 kg Aileen Quintanilla APRN.SHIPPING ORDER CLERK 09/29/2023 4:54 PM Signed This is a 62 year old female who presents today with: Patient presents with: Follow Up: 3 month follow up with labs HISTORY OF PRESENT ILLNESS: Camila Harmon is a 62 year old female. Patient presents with: Follow Up: 3 month follow up with labs 3 month follow up DM2: Follows with endocrinology, has not been keeping track of sugars. Has Dexcom 7 monitor. Eating chocolate peanut butter ice cream. Working all the time and not able to watch what she eats. Still taking metformin 500 mg twice daily, glimepiride 4 mg twice daily, and Mounjaro 12.5 mg weekly. A1c went from 10.7 to 10.4. Next follow-up with endocrinology is in November. Mood: Currently taking Paxil 40 mg daily, BuSpar 15 mg 3 times daily, and Ativan 0.5 mg, 2 tablets twice daily. No showed Samra SHIPPING ORDER CLERK psychiatry. Needs to reschedule. Reports her and her are not getting along lately. Increased sadness. Increased stress at work, working increased hours. Many employees on leave. Overall feels overwhelmed. Not currently following with counselor. Denies SI/HI. Hyperlipidemia: Triglycerides elevated. Taking Lipitor 80 mg daily. Refers that labs she recently completed reports was not fasting. present for exam. PAST MEDICAL HISTORY: PAST MEDICAL HISTORY Diagnosis Date Coronary artery disease Depressive disorder, not elsewhere classified Enlarged liver Excessive or frequent menstruation 07/06/2004 s/p TVH Migraine with aura, without mention of intractable migraine without mention of status migrainosus Other anxiety states Pure hypercholesterolemia S/P primary angioplasty with coronary stent 11/06/2008 Type II or unspecified type diabetes mellitus without mention of complication, not stated as uncontrolled PAST SURGICAL HISTORY Procedure Laterality Date CARPAL TUNNEL Bilateral 03/05/2017 COLONOSCOPY FLX DX W/COLLJ SPEC WHEN PFRMD 07/19/2013 Colonoscopy EXTRACTION, ERUPTED TOOTH OR EXPOSED ROOT (ELEVATION AND/OR FORCEPS REMOVAL) wisdom teeth HEART CATHETERIZATION N/A 02/11/2022 HYSTERECTOMY HX PAST SURGICAL HISTORY OF 02/22/2002 BREAST REDUCTION PAST SURGICAL HISTORY OF 2008, 2011 stent, LAD X2. VAGINAL HYSTERECTOMY UTERUS 250 GM/< 07/2004 Hysterectomy, vaginal ALLERGIES Penicillins, Percocet [Oxycodone-Acetaminophe n], and Tylenol-Codeine Elixir MEDICATIONS Current Outpatient Medications Medication Sig LORazepam (ATIVAN) 0.5 mg Take 2 tablets by mouth two times a day for 90 days. metFORMIN (GLUCOPHAGE) 500 mg tablet Take 1 tablet by mouth two times a day with meals. empagliflozin (JARDIANCE) 25 mg tablet Take 1 tablet once daily in the morning tirzepatide (MOUNJARO) 15 mg/0.5 mL pen injector Inject 15 mg subcutaneously one time a week. cyanocobalamin (VITAMIN B-12) 1,000 mcg tab Take 1 tablet by mouth once daily. cholecalciferol (VITAMIN D-3) 5,000 unit tab Take 1 tablet by mouth once daily. esomeprazole (NEXIUM) 20 mg capsule Take 20 mg by mouth daily at 6 am. Blood-Glucose Sensor ([employer] [place] G7 SENSOR) john CHANGE SENSOR EVERY 10 days USE FOR CONTINUOUS GLUCOSE MONITORING. E11.9 (Patient not taking: Reported on 08/11/2023) ondansetron orally disintegrating (ZOFRAN ODT) 4 mg disintegrating tablet Take 1 tablet by mouth every 6 hours as needed for nausea/vomiting. lisinopril (ZESTRIL) 20 mg tablet Take 1 tablet by mouth two times a day. atorvastatin (LIPITOR) 80 mg tablet Take 1 tablet by mouth daily at bedtime for cholesterol. atenolol (TENORMIN) 100 mg tablet Take 1 tablet by mouth once daily. gabapentin (NEURONTIN) 300 mg capsule Take 1 capsule by mouth two times a day for [address] (PROTONIX) 40 mg tablet Take 1 tablet by mouth daily before breakfast. Take on empty stomach, 1/2 hr before meal. magnesium oxide (MAG-OX) 400 mg (241.3 mg magnesium) tablet Take 1 tablet by mouth two times a day. nitroglycerin sublingual (NITROQUICK) 0.4 mg SL tablet Dissolve 1 tablet under the tongue as needed. FOR CHEST PAIN. IF NO RELIEF CALL 911 blood sugar diagnostic (BLOOD GLUCOSE TEST) test strip Test blood sugar(s) one times daily. Dx: Type 2 DM - Uncontrolled E11.65 Insulin: No PARoxetine (PAXIL) 40 mg tablet Take 1 tablet by mouth once daily. glimepiride (AMARYL) 4 mg tablet Take 1 tablet by mouth twice daily with meals. ezetimibe (ZETIA) 10 mg tablet Take 1 tablet by mouth once daily. cyclobenzaprine (FLEXERIL) 10 mg tablet Take 1 tablet by mouth three times daily as needed for muscle spasm. promethazine (PHENERGAN) 25 mg tabl (more content not included)... Normal [facility] Comprehensive metabolic 2000 panelon 09-27-2023 Albumin [Mass/Vol] 4.4 g/dL Normal 3.9-4.9 [facility] Comment on above: Order Comment: Speci men Type: BLOOD SPECIMENOrdering Facility: [facility] Address: [facility] [place] [address] Performed By: #### 2 4323-8, LIPNF ####[facility] LABCLIA [id number] [place] [address] [place] ALP [Catalytic activity/Vol] 89 U/L Normal 34-123 [facility] Comment on above: Order Comment: Speci men Type: BLOOD SPECIMENOrdering Facility: [facility] Address: [address] [place] [address] Performed By: #### 2 4323-8, LIPNF ####[facility] LABCLIA [id number] [place] [address] [place] ALT [Catalytic activity/Vol] 29 U/L Normal 7-38 [facility] Comment on above: Order Comment: Speci men Type: BLOOD SPECIMENOrdering Facility: [facility] Address: [address] [place] [address] Performed By: #### 2 4323-8, LIPNF ####[facility] LABCLIA [id number] [place] [address] [place] Anion gap [Moles/Vol] 15 mmol/L Normal 8-15 [facility] Comment on above: Order Comment: Speci men Type: BLOOD SPECIMENOrdering Facility: [facility] Address: [address] [place] [address] Performed By: #### 2 4323-8, LIPNF ####[facility] LABCLIA [id number] [place] [address] [place] AST [Catalytic activity/Vol] 21 U/L Normal 13-35 [facility] Comment on above: Order Comment: Speci men Type: BLOOD SPECIMENOrdering Facility: [facility] Address: [address] [place] [address] Performed By: #### 2 4323-8, LIPNF ####[facility] LABCLIA [id number] [place] [address] [place] Bilirubin [Mass/Vol] 1.2 mg/dL Normal 0.2-1.3 [facility] Comment on above: Order Comment: Speci men Type: BLOOD SPECIMENOrdering Facility: [facility] Address: [address] [place] [address] Performed By: #### 2 4323-8, LIPNF ####[facility] LABCLIA [id number] [place] [address] [place] Calcium [Mass/Vol] 9.7 mg/dL Normal 8.5-10.2 [facility] Comment on above: Order Comment: Speci men Type: BLOOD SPECIMENOrdering Facility: [facility] Address: [address] [place] [address] Performed By: #### 2 4323-8, LIPNF ####[facility] LABCLIA [id number] [place] [address] [place] Chloride [Moles/Vol] 102 mmol/L Normal 98-107 [facility] Comment on above: Order Comment: Speci men Type: BLOOD SPECIMENOrdering Facility: [facility] Address: [address] [place] [address] Performed By: #### 2 4323-8, LIPNF ####[facility] LABCLIA [id number] [place] [address] [place] CO2 [Moles/Vol] 21 mmol/L Low 22-30 [facility] Comment on above: Order Comment: Speci men Type: BLOOD SPECIMENOrdering Facility: [facility] Address: [address] [place] [address] Performed By: #### 2 4323-8, LIPNF ####[facility] LABIA [id number] [place] [address] [place] Creatinine [Mass/Vol] 0.91 mg/dL Normal 0.58-0.96 [facility] Comment on above: Order Comment: Speci men Type: BLOOD SPECIMENOrdering Facility: [facility] Address: [address] [place] [address] Performed By: #### 2 4323-8, LIPNF ####[facility] LABIA [id number] [place] [address] [place] Creatinine and Glomerular filtration rate.predicted panel (S/P/Bld) 72 mL/min/1.73m??? Normal >=60 [facility] Comment on above: Order Comment: Speci men Type: BLOOD SPECIMENOrdering Facility: [facility] Address: [address] [place] [address] Result Comment: Gin mated Glomerular Filtration Rate (eGFR) is calculated using the 2020 CKD-EPI creatinine equation. This equation utilizes serum creatinine, sex, and age as parameters. The creatinine assay has traceable calibration to isotope dilution-mass spectrometry. Refer to KDIGO guidelines for clinical interpretation. In patients with unstable renal function, e.g. those with acute kidney injury, the eGFR may not accurately reflect actual GFR. Performed By: #### 2 4323-8, LIPNF ####[facility] LABIA [id number] [place] [address] [place] Glucose [Mass/Vol] 181 mg/dL High 74-99 [facility] Comment on above: Order Comment: Speci men Type: BLOOD SPECIMENOrdering Facility: [facility] Address: [address] [place] [address] Result Comment: The [place] Diabetes Association (ADA) provides guidance for cutoff values for fasting glucose and random glucose. The ADA defines fasting as no caloric intake for at least 8 hours. Fasting plasma glucose results between 100 to 125 mg/dL indicate increased risk for diabetes (prediabetes). Fasting plasma glucose results greater than or equal to 126 mg/dL meet the criteria for diagnosis of diabetes. In the absence of unequivocal hyperglycemia, results should be confirmed by repeat testing. In a patient with classic symptoms of hyperglycemia or hyperglycemic crisis, random plasma glucose results greater than or equal to 200 mg/dL meet the criteria for diagnosis of diabetes. Reference: Standards of Medical Care in Diabetes 2016, [place] Diabetes Association. Diabetes Care. 2016.39(Suppl 1). Performed By: #### 2 4323-8, LIPNF ####[facility] LABCLIA [id number] [place] [address] [place] Potassium [Moles/Vol] 4.4 mmol/L Normal 3.7-5.1 [facility] Comment on above: Order Comment: Speci men Type: BLOOD SPECIMENOrdering Facility: [facility] Address: [address] [place] [address] Performed By: #### 2 4323-8, LIPNF ####[facility] LABIA [id number] [place] [address] [place] Protein [Mass/Vol] 7.1 g/dL Normal 6.3-8.0 [facility] Comment on above: Order Comment: Speci men Type: BLOOD SPECIMENOrdering Facility: [facility] Address: [address] [place] [address] Performed By: #### 2 4323-8, LIPNF ####[facility] LABCLIA [id number] [place] [address] [place] Sodium [Moles/Vol] 138 mmol/L Normal 136-144 [facility] Comment on above: Order Comment: Speci men Type: BLOOD SPECIMENOrdering Facility: [facility] Address: [address] [place] [address] Performed By: #### 2 4323-8, LIPNF ####[facility] LABCLIA [id number] [place] [id number] [place] Urea nitrogen [Mass/Vol] 29 mg/dL High 7-21 [facility] Comment on above: Order Comment: Luke viera Type: BLOOD SPECIMENOrdering Facility: [facility] Address: [address] [place] [address] Performed By: #### 2 4323-8, LIPNF ####[facility] LABCLIA [id number] [place] [address] [place] HbA1c (Bld)on 09-27-2023 Average glucose Estimated from glycated hemoglobin (Bld) [Mass/Vol] 252 mg/dL Normal [facility] Comment on above: Order Comment: Luke viera Type: BLOOD SPECIMENOrdering Facility: [facility] Address: [address] [place] [address] Result Comment: eAG: (Estimated average glucose) is a calculated value from HgbA1c and is abrasives sales representative of the average blood glucose level in the last 2-3 month period. Performed By: #### 5 5454-3 ####[facility] LABCLIA [id number] [place] [address] [place] HbA1c (Bld) [Mass fraction] 10.4 % High 4.3-5.6 [facility] Comment on above: Order Comment: Luke viera Type: BLOOD SPECIMENOrdering Facility: [facility] Address: [address] [place] [address] Result Comment: [place] Diabetes Association guidelines indicate that patients with HgbA1c in the range 5.7-6.4% are at increased risk for development of diabetes, and intervention by lifestyle modification may be beneficial. HgbA1c greater or equal to 6.5% is considered diagnostic of diabetes. Performed By: #### 5 5454-3 ####[facility] LABCLIA [id number] [place] [address] [place] LIPID PANEL, NONFASTINGon Cholesterol [Mass/Vol] 161 mg/dL Normal <200 [facility] Comment on above: Order Comment: Luke viera Type: BLOOD SPECIMENOrdering Facility: [facility] Address: [address] [place] [address] Result Comment: <200 mg/dL, Desirable 200-239 mg/dL, Borderline high >239 mg/dL, High Performed By: #### 2 4323-8, LIPNF ####[facility] LABCLIA [id number] [place] [address] [place] HDL CHOLESTEROL, NF 34 mg/dL Low >39 [facility] Comment on above: Order Comment: Speci men Type: BLOOD SPECIMENOrdering Facility: [facility] Address: [address] [place] [address] Result Comment: 40-5 9 mg/dL, Acceptable >59 mg/dL, High: Negative risk factor for coronary heart disease <40 mg/dL, Low: Positive risk factor for coronary heart disease Performed By: #### 2 4323-8, LIPNF ####[facility] LABCLIA [id number] [place] [address] [place] LDL CHOLESTEROL, NF Normal [facility] Comment on above: Order Comment: Speci men Type: BLOOD SPECIMENOrdering Facility: [facility] Address: [address] [place] [address] Result Comment: Unab le to calculate due to increased Triglycerides. A Direct LDL Cholesterol measurement will not be performed. If clinically indicated, a fasting Basic Lipid Panel (LIPB) may be ordered. Performed By: #### 2 4323-8, LIPNF ####[facility] LABCLIA [id number] [place] [address] [place] LDL/HDL RATIO, NF Normal [facility] Comment on above: Order Comment: Speci men Type: BLOOD SPECIMENOrdering Facility: [facility] Address: [address] [place] [address] Result Comment: Unab le to calculate due to elevated Triglycerides. Reference: 1. National Cholesterol Education Program ATP III Guideline At-A-Glance Quick Desk Reference: National Heart, Lung, and Blood [place]. National Institutes of Health. 2001: NIH Publication No. 01-3305. 2. An International Atherosclerosis Society position paper: global recommendations for the management of dyslipidemia: executive summary, Atherosclerosis. 2014: 232(2):410-413. Performed By: #### 2 4323-8, LIPNF ####[facility] LABCLIA [id number] [place] [address] [place] NON HDL CHOL, NF 127 mg/dL Normal <130 [facility] Comment on above: Order Comment: Speci men Type: BLOOD SPECIMENOrdering Facility: [facility] Address: [address] [place] [address] Result Comment: <130 mg/dL, Optimal 130-159 mg/dL, Near optimal/above optimal 160-189 mg/dL, Borderline high 190-219 mg/dL, High >219 mg/dL, Very high Secondary prevention optimal non HDL Cholesterol levels are recommended to be <100 mg/dL Performed By: #### 2 4323-8, LIPNF ####[facility] LABCLIA [id number] [place] [address] [place] T CHOL/HDL RATIO NF 4.74 mg/dL Normal <5.10 [facility] Comment on above: Order Comment: Speci men Type: BLOOD SPECIMENOrdering Facility: [facility] Address: [address] [place] [address] Performed By: #### 2 4323-8, LIPNF ####[facility] LABCLIA [id number] [place] [address] [place] TRIGLYCERIDES, NF 620 mg/dL High <150 [facility] Comment on above: Order Comment: Speci men Type: BLOOD SPECIMENOrdering Facility: [facility] Address: [address] [place] [address] Result Comment: <150 mg/dL, Normal 150-199 mg/dL, Borderline high 200-499 mg/dL, High >499 mg/dL, Very high Performed By: #### 2 4323-8, LIPNF ####[facility] LABCLIA [id number] [address] [place] VLDL CHOLESTEROL, NF Normal [facility] Comment on above: Order Comment: Speci men Type: BLOOD SPECIMENOrdering Facility: [facility] Address: [address] [place] [address] Result Comment: Unab le to calculate due to elevated Triglycerides. Performed By: #### 2 4323-8, LIPNF ####[facility] LABCLIA [id number] [address] [place] HEMOGLOBIN A1C (POC)on 08-10 HbA1c (Bld) [Mass fraction] 8.6 % Abnormal 4.3 - 5.6 % [facility] Comment on above: Location:[facility], [address] , [place], [address] Point of care (POC) Hemoglobin A1c (HGBA1C) testing is intended to assess glucose control and provide a management tool for patients known to have diabetes and their healthcare providers. Target HGBA1C levels may depend on specific clinical circumstances. POC HGBA1C is not intended for use as a diagnostic or screening test; laboratory-based testing should be used for diagnostic purposes. The following information is supplemental and may not be applicable to specific diabetes management situations: The POC device cardiovascular or nurse provides a normal range of 4.2% to 6.5% for the HGBA1C POC test. However, the [place] Diabetes Association guidelines indicate that patients with HGBA1C in the range of 5.7% to 6.4% are at increased risk for development of diabetes and that intervention by lifestyle modification may be beneficial. A HGBA1C level greater than or equal to 6.5% is considered diagnostic of diabetes, pending confirmatory testing. Use of HGBA1C testing to evaluate glucose control may not be appropriate for patients with hemoglobin variants or other conditions (e.g. anemia) that alter red blood cell lifespan. Interpretation and review of laboratory results Abnormal [facility] HEMOGLOBIN A1C (POC)on 05-11 HbA1c (Bld) [Mass fraction] 9.1 % Abnormal 4.3 - 5.6 % [facility] CNPYesy 04-21-2023 CNPN Telephone (AGENDOG) CAMILA HARMON ([id number]) 1960 F Date Time Provider Department 04/21/23 ENDO AGENDOG During your visit today, we recorded the following information about you: Jessica Hill 04/21/2023 11:29 AM Signed ----- Message from Jolanta Schwarz sent at 04/15/2023 2:08 PM EST ----- Regarding: Endocrinology/new pt/ has referral to schedule with a transport pilot in [facility] Patient: Camila Harmon Date of : 1960 Primary Care Provider: Emily Wang MD Patient has been identified by name and Date of (Y/N): y Patient: Camila Harmon Date of : 1960 Provider for this encounter: Emily Wang MD Reason for the call/escalation: has referral to schedule with a transport pilot in [facility] Was Patient Referred to [facility]/Seek Emergency Treatment (Y/N): no Did Patient Agree (Y/N): n/a Was An Attempt Made To Transfer The Patient To The Office (Y/N): no Were You Able To Reach Someone At The Office (Y/N): n/a If Yes - Patient Was Transferred To (Caregivers Name): n/a If No - Which [facility] Leadership Deodorizer Operator Did You Speak With Regarding This Patient: n/a Was an appointment scheduled (Y/N): no-unable to schedule with transport pilot Reason patient was requesting visit (RFV/signs and symptoms/diagnosis) : has referral to schedule with a transport pilot in endo Person calling if other than patient: n/a Return call to if other than patient: n/a Best contact number: [phone] Thank you, Jolanta Schwarz April 15, 2023 2:08 PM Jessica Hill 04/21/2023 11:30 AM Signed Forwarded to Carrie, this appears to be for Pooja. She said she will handle. Jessica Hill April 21, 2023 11:30 AM Radha Garzon 04/22/2023 11:30 AM Signed Called patient and gave her phone numbers listed in the transport pilot referral so she could call and schedule. 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 Prescriptions as of 04/22/2023 - atorvastatin (LIPITOR) 80 mg tablet Take 1 tablet by mouth daily at bedtime for cholesterol. - atenolol (TENORMIN) 100 mg tablet Take 1 tablet by mouth once daily. - empagliflozin (JARDIANCE) 25 mg tablet Take 1 tablet by mouth once daily. Take 1 tablet once daily in the morning - LORazepam (ATIVAN) 0.5 mg Take 2 tablets by mouth two times a day for 90 days. - gabapentin (NEURONTIN) 300 mg capsule Take 1 capsule by mouth two times a day for 180 days. - pantoprazole DR (PROTONIX) 40 mg tablet Take 1 tablet by mouth daily before breakfast. Take on empty stomach, 1/2 hr before meal. - magnesium oxide (MAG-OX) 400 mg (241.3 mg magnesium) tablet Take 1 tablet by mouth two times a day. - nitroglycerin sublingual (NITROQUICK) 0.4 mg SL tablet Dissolve 1 tablet under the tongue as needed. FOR CHEST PAIN. IF NO RELIEF CALL 911 - blood sugar diagnostic (BLOOD GLUCOSE TEST) test strip Test blood sugar(s) one times daily. Dx: Type 2 DM - Uncontrolled E11.65 Insulin: No - PARoxetine (PAXIL) 40 mg tablet Take 1 tablet by mouth once daily. - dulaglutide (TRULICITY) 4.5 mg/0.5 mL pen injector Inject 4.5 mg subcutaneously one time a week. - glimepiride (AMARYL) 4 mg tablet Take 1 tablet by mouth twice daily with meals. - ezetimibe (ZETIA) 10 mg tablet Take 1 tablet by mouth once daily. - cyclobenzaprine (FLEXERIL) 10 mg tablet Take 1 tablet by mouth three times daily as needed for muscle spasm. - promethazine (PHENERGAN) 25 mg tablet Take 1 tablet by mouth every 6 hours as needed for nausea/vomiting. - meclizine (ANTIVERT) 25 mg tab Take 1 tablet by mouth three times daily as needed. - lisinopril (ZESTRIL) 20 mg tablet Take 1 tablet by mouth twice daily. - metFORMIN (GLUCOPHAGE) 500 mg tablet Take 1 tablet by mouth twice daily with meals. - hydrOXYzine HCl (ATARAX) 25 mg tablet Take 1 tablet by mouth every 6 hours as needed for anxiety. - busPIRone (BUSPAR) 15 mg tablet Take 1 tablet by mouth three times daily. - Blood-Glucose Meter Test blood sugar(s) 1 times daily. Dx: Type 2 DM - Uncontrolled E11.65 Insulin: No - Lancets lancets Test blood sugar(s) 1 times daily. Dx: Type 2 DM - Uncontrolled E11.65 Insulin: No - albuterol HFA (PROVENTIL HFA, VENTOLIN HFA) 90 mcg/actuation inhaler Inhale 2 Puffs as instructed every 4 hours as needed for wheezing/shortness of breath. - diclofenac (VOLTAREN) 1 % topical gel Apply 2 g to (more content not included)... [facility] Brandi 04-16-2023 BETTY Telephone (DONTEAGST) CAMILA HARMON ([id number]) 1960 F Date Time Provider Department 04/16/23 EMILY WANG During your visit today, we recorded the following information about you: Carrie Perry 04/16/2023 1:44 PM Signed ----- Message from Jessica Hill sent at 04/15/2023 2:27 PM EST ----- Regarding: FW: Endocrinology/new pt/ has referral to schedule with a transport pilot in endo Luis Antonio Butler, How can we re-route this? She doesn't appear to be our patient and normally the doctor puts in a referral to the transport pilot. Thanks ----- Message ----- From: Jolanta Schwarz Sent: 04/15/2023 2:11 PM EST To: [facility] Triage Pool Subject: Endocrinology/new pt/ has referral to [facility]# Patient: Camila Harmon Date of : 1960 Primary Care Provider: Emily Wang MD Patient has been identified by name and Date of (Y/N): y Patient: Camila Harmon Date of : 1960 Provider for this encounter: Emily Wang MD Reason for the call/escalation: has referral to schedule with a transport pilot in endo Was Patient Referred to 911/Seek Emergency Treatment (Y/N): no Did Patient Agree (Y/N): n/a Was An Attempt Made To Transfer The Patient To The Office (Y/N): no Were You Able To Reach Someone At The Office (Y/N): n/a If Yes - Patient Was Transferred To (Caregivers Name): n/a If No - Which [facility] Leadership Deodorizer Operator Did You Speak With Regarding This Patient: n/a Was an appointment scheduled (Y/N): no-unable to schedule with transport pilot Reason patient was requesting visit (RFV/signs and symptoms/diagnosis) : has referral to schedule with a transport pilot in endo Person calling if other than patient: n/a Return call to if other than patient: n/a Best contact number: [phone] Thank you, Jolanta Schwarz April 15, 2023 2:08 PM DonteCarrie bhatti 04/16/2023 1:50 PM Signed I reached out to the patient to discuss the information that is on her referral. The patient was unable to be reached. I left a message requesting that the patient return my call. Carrie Perry April 16, 2023 1:50 PM Allergies As of Date: 04/16/2023 Noted Allergy Reaction PENICILLINS 06/29/2005 4 - Hives PERCOCET (OXYCODONE-ACETAMINOPHE N)08/31/2007 8 - GI Upset TYLENOL-CODEINE ELIXIR 05/21/2010 14 - Other: See Comments Comments: halucmadalyn Date Reviewed: 04/15/2023 Reviewed by: Nargis Reynaga LPN - Fully Assessed Reason for Visit: Appointment [186] Cmt: Oem Sales Manager Prescriptions as of 04/16/2023 - empagliflozin (JARDIANCE) 25 mg tablet Take 1 tablet by mouth once daily. Take 1 tablet once daily in the morning - LORazepam (ATIVAN) 0.5 mg Take 2 tablets by mouth two times a day for 90 days. - gabapentin (NEURONTIN) 300 mg capsule Take 1 capsule by mouth two times a day for 180 days. - pantoprazole DR (PROTONIX) 40 mg tablet Take 1 tablet by mouth daily before breakfast. Take on empty stomach, 1/2 hr before meal. - magnesium oxide (MAG-OX) 400 mg (241.3 mg magnesium) tablet Take 1 tablet by mouth two times a day. - nitroglycerin sublingual (NITROQUICK) 0.4 mg SL tablet Dissolve 1 tablet under the tongue as needed. FOR CHEST PAIN. IF NO RELIEF CALL 911 - blood sugar diagnostic (BLOOD GLUCOSE TEST) test strip Test blood sugar(s) one times daily. Dx: Type 2 DM - Uncontrolled E11.65 Insulin: No - PARoxetine (PAXIL) 40 mg tablet Take 1 tablet by mouth once daily. - dulaglutide (TRULICITY) 4.5 mg/0.5 mL pen injector Inject 4.5 mg subcutaneously one time a week. - glimepiride (AMARYL) 4 mg tablet Take 1 tablet by mouth twice daily with meals. - atenolol (TENORMIN) 100 mg tablet take 1 tablet by mouth once daily. - ezetimibe (ZETIA) 10 mg tablet Take 1 tablet by mouth once daily. - cyclobenzaprine (FLEXERIL) 10 mg tablet Take 1 tablet by mouth three times daily as needed for muscle spasm. - promethazine (PHENERGAN) 25 mg tablet Take 1 tablet by mouth every 6 hours as needed for nausea/vomiting. - meclizine (ANTIVERT) 25 mg tab Take 1 tablet by mouth three times daily as needed. - lisinopril (ZESTRIL) 20 mg tablet Take 1 tablet by mouth twice daily. - atorvastatin (LIPITOR) 80 mg tablet Take 1 tablet by mouth daily at bedtime for cholesterol. - metFORMIN (GLUCOPHAGE) 500 mg tablet Take 1 tablet by mouth twice daily with meals. - hydrOXYzine HCl (ATARAX) 25 mg tablet Take 1 tablet by mouth every 6 hours as needed for anxiety. - busPIRone (BUSPAR) 15 mg tablet Take 1 tablet by mouth three times daily. - Blood-Glucose Meter Test blood sugar(s) 1 times daily. Dx: Type 2 DM - Uncontrolled E11.65 Insulin: No - Lancets lancets Test blood sugar(s) 1 times daily. Dx: Type 2 DM - Uncontrolled E11.65 Insulin: No - albuterol HFA (PROVENTIL H (more content not included)... Normal [facility] ALLIED HEALTHon 04-12-2023 ALLIED HEALTH HNO ID: [id number] Author: AISHWARYA LOMBARDI RT(R) Service: ? Author Type: Auditor Type: Allied Health Filed: 04/12/2023 15:46 Note Text: Radiology Service Progress Note PATIENT NAME: Camila Harmon DATE OF SERVICE: April 12, 2023 TIME: 3:45 PM PATIENT IDENTITY VERIFICATION COMPLETED USING TWO (2) IDENTIFIERS: Name and Date of confirmed by patient verbally. FALL SCREENING: Has the patient had 2 falls in the last year or 1 fall with injury or currently using an Ambulatory Assistive Device (Walker, Cane, Wheelchair, Crutches, etc.)? Emergency Room Patient: Screened in ED PATIENT GENDER DATA: Female. status: : No status: NO. PATIENT RELEVANT IMPLANT DATA REVIEWED: Not Applicable PATIENT PRESENTS WITH AN IMPLANTABLE OR ATTACHED POULTRY FARM LABORER: No RADIOLOGY DEPARTMENT: CT; Exam(s) Completed: Brain PERIPHERAL IV DATA: Not applicable SIGNED BY: Aishwarya Lombardi RT(R) April 12, 2023 3:45 PM Normal [facility] CBC W Auto Differential pane l (Bld)on 04-12-2023 Basophils (Bld) [#/Vol] 0.05 10*3/uL Normal <0.11 [facility] Comment on above: Order Comment: Speci men Type: BLOOD SPECIMEN Ordering Facility: [facility] Address: [address] [place] [address] Performed By: #### 5 7021-8 #### [facility] CLIA [id number] [address] [place] [address] [place] Basophils/100 WBC (Bld) 0.5 % Normal [facility] Comment on above: Order Comment: Speci men Type: BLOOD SPECIMEN Ordering Facility: [facility] Address: [address] [place] [address] Performed By: #### 5 7021-8 #### [facility] CLIA [id number] [address] [place] [address] [place] Differential cell count method Nom (Bld) Auto Normal [facility] Comment on above: Order Comment: Speci men Type: BLOOD SPECIMEN Ordering Facility: [facility] Address: [address] [place] [address] Performed By: #### 5 7021-8 #### [facility] CLIA [id number] [address] [place] [address] [place] Eosinophils (Bld) [#/Vol] 0.16 10*3/uL Normal <0.46 [facility] Comment on above: Order Comment: Speci men Type: BLOOD SPECIMEN Ordering Facility: [facility] Address: [address] [place] [address] Performed By: #### 5 7021-8 #### [facility] CLIA [id number] [address] [place] [address] [place] Eosinophils/100 WBC (Bld) 1.6 % Normal [facility] Comment on above: Order Comment: Speci men Type: BLOOD SPECIMEN Ordering Facility: [facility] Address: [address] [place] [address] Performed By: #### 5 7021-8 #### [facility] CLIA [id number] [address] [place] Erythrocyte distribution width (RBC) [Ratio] 15.0 % Normal 11.5-15.0 [facility] Comment on above: Order Comment: Speci men Type: BLOOD SPECIMEN Ordering Facility: [facility] Address: [address] [place] [address] Performed By: #### 5 7021-8 #### [facility] CLIA [id number] [address] [place] Hematocrit (Bld) [Volume fraction] 40.8 % Normal 36.0-46.0 [facility] Comment on above: Order Comment: Speci men Type: BLOOD SPECIMEN Ordering Facility: [facility] Address: [address] [place] [address] Performed By: #### 5 7021-8 #### [facility] CLIA [id number] [address] [place] [id number] [place] Hemoglobin (Bld) [Mass/Vol] 13.6 g/dL Normal 11.5-15.5 [facility] Comment on above: Order Comment: Speci men Type: BLOOD SPECIMEN Ordering Facility: [facility] Address: [address] [place] [address] Performed By: #### 5 7021-8 #### [facility] CLIA [id number] [address] [place] [phone] [facility] [place] Immature granulocytes (Bld) [#/Vol] 0.04 10*3/uL Normal <0.10 [facility] Comment on above: Order Comment: Speci men Type: BLOOD SPECIMEN Ordering Facility: [facility] Address: [address] [place] [address] Performed By: #### 5 7021-8 #### [facility] CLIA [id number] [address] Immature granulocytes/100 WBC (Bld) 0.4 % Normal [facility] Comment on above: Order Comment: Speci men Type: BLOOD SPECIMEN Ordering Facility: [facility] Address: [address] [place] [address] Performed By: #### 5 7021-8 #### [facility] CLIA [id number] [address] [place] [address] [place] Lymphocytes (Bld) [#/Vol] 2.78 10*3/uL Normal 1.00-4.00 [facility] Comment on above: Order Comment: Speci men Type: BLOOD SPECIMEN Ordering Facility: [facility] Address: [address] [place] [address] Performed By: #### 5 7021-8 #### [facility] CLIA [id number] [address] Lymphocytes/100 WBC (Bld) 27.7 % Normal [facility] Comment on above: Order Comment: Speci men Type: BLOOD SPECIMEN Ordering Facility: [facility] Address: [address] [place] [address] Performed By: #### 5 7021-8 #### [facility] CLIA [id number] [address] [place] [phone] [place] MCH (RBC) [Entitic mass] 30.0 pg Normal 26.0-34.0 [facility] Comment on above: Order Comment: Speci men Type: BLOOD SPECIMEN Ordering Facility: [facility] Address: [address] [place] [address] Performed By: #### 5 7021-8 #### [facility] CLIA [id number] [address] [place] MCHC (RBC) [Mass/Vol] 33.3 g/dL Normal 30.5-36.0 [facility] Comment on above: Order Comment: Speci men Type: BLOOD SPECIMEN Ordering Facility: [facility] Address: [address] [place] [address] Performed By: #### 5 7021-8 #### [facility] CLIA [id number] [address] [place] [address] [place] MCV (RBC) [Entitic vol] 90.1 fL Normal 80.0-100.0 [facility] Comment on above: Order Comment: Speci men Type: BLOOD SPECIMEN Ordering Facility: [facility] Address: [address] [place] [address] Performed By: #### 5 7021-8 #### [facility] CLIA [id number] [address] [place] [address] [place] Monocytes (Bld) [#/Vol] 0.68 10*3/uL Normal <0.87 [facility] Comment on above: Order Comment: Speci men Type: BLOOD SPECIMEN Ordering Facility: [facility] Address: [address] [place] [address] Performed By: #### 5 7021-8 #### [facility] CLIA [id number] [address] [place] [address] [place] Monocytes/100 WBC (Bld) 6.8 % Normal [facility] Comment on above: Order Comment: Speci men Type: BLOOD SPECIMEN Ordering Facility: [facility] Address: [address] [place] [address] Performed By: #### 5 7021-8 #### [facility] CLIA [id number] [address] [place] [address] [place] Neutrophils (Bld) [#/Vol] 6.32 10*3/uL Normal 1.45-7.50 [facility] Comment on above: Order Comment: Speci men Type: BLOOD SPECIMEN Ordering Facility: [facility] Address: [address] [place] [address] Performed By: #### 5 7021-8 #### [facility] CLIA [id number] [address] [place] [address] [place] Neutrophils/100 WBC (Bld) 63.0 % Normal [facility] Comment on above: Order Comment: Speci men Type: BLOOD SPECIMEN Ordering Facility: [facility] Address: [address] [place] [address] Performed By: #### 5 7021-8 #### [facility] CLIA [id number] [address] [place] [address] [place] Nucleated RBC (Bld) [#/Vol] Normal [facility] Comment on above: Order Comment: Speci men Type: BLOOD SPECIMEN Ordering Facility: [facility] Address: [facility] [place] [address] Performed By: #### 5 7021-8 #### [facility] CLIA [id number] [address] [place] [address] [place] Nucleated RBC/100 WBC (Bld) [Ratio] Normal [facility] Comment on above: Order Comment: Speci men Type: BLOOD SPECIMEN Ordering Facility: [facility] Address: [address] [place] [address] Performed By: #### 5 7021-8 #### [facility] CLIA [id number] [address] [place] [address] [place] Platelet mean volume (Bld) [Entitic vol] 10.6 fL Normal 9.0-12.7 [facility] Comment on above: Order Comment: Speci men Type: BLOOD SPECIMEN Ordering Facility: [facility] Address: [address] [place] [address] Performed By: #### 5 7021-8 #### [facility] CLIA [id number] [address] [place] [address] [place] Platelets (Bld) [#/Vol] 286 10*3/uL Normal 150-400 [facility] Comment on above: Order Comment: Speci men Type: BLOOD SPECIMEN Ordering Facility: [facility] Address: [address] [place] [address] Performed By: #### 5 7021-8 #### [facility] CLIA [id number] [address] [place] [address] [facility] RBC (Bld) [#/Vol] 4.53 10*6/uL Normal 3.90-5.20 [facility] Comment on above: Order Comment: Speci men Type: BLOOD SPECIMEN Ordering Facility: [facility] Address: [address] [place] [address] Performed By: #### 5 7021-8 #### [facility] CLIA [id number] [address] [place] [address] [facility] WBC (Bld) [#/Vol] 10.03 10*3/uL Normal 3.70-11.00 [facility] Comment on above: Order Comment: Speci men Type: BLOOD SPECIMEN Ordering Facility: [facility] Address: [address] [place] [address] Performed By: #### 5 7021-8 #### [facility] CLIA [id number] [address] [place] [address] [facility] CT BRAIN WO IVCONon 04-12-19 CT BRAIN WO IVCON * * *Final Report* * * DATE OF EXAM: Apr 12 2023 3:45PM [facility] [place] 2] 0504 - CT BRAIN WO IVCON / PROCEDURE REASON: Mental status change, unknown cause * * * * Physician Interpretation * * * * EXAMINATION: CT BRAIN WO IVCON CLINICAL HISTORY: Hyperglycemia, altered mental status TECHNIQUE: Serial axial images without IV contrast were obtained from the vertex to the foramen magnum. MQ: CTBWO_3 CT Radiation dose: Integrated Dose-Length Product (DLP) for this visit = 618 mGy*cm CT Dose Reduction Employed: Automatic exposure control was used COMPARISON: 04/17/[address] 04/18/2021 MRI brain RESULT: Post-operative change: None. Acute change: No evidence of an acute infarct or other acute parenchymal process. Hemorrhage: No evidence of acute intracranial hemorrhage. ECASS hemorrhagic transformation score: Not Applicable Mass Lesion / Mass Effect: There is no evidence of an intracranial mass or extraaxial fluid collection. No significant mass effect. Chronic change: Bilateral basal ganglia calcifications, physiologic. Arterial calcification distal intradural left vertebral artery Parenchyma: There is no significant volume loss. The brain parenchyma is otherwise within normal limits for age. Ventricles: The ventricles are within normal limits of size and configuration for age. Paranasal sinuses and skull base: The visualized paranasal sinuses are grossly clear. The skull base and imaged soft tissues are unremarkable. IMPRESSION: No acute or subacute intracranial abnormalities [facility] Sc[facility] Transcribe Date/Time: Apr 12 2023 3:55P Dictated by : LÁZARO BENNETT MD This examination was interpreted and the report reviewed and electronically signed by: LÁZARO BENNETT MD on Apr 12 2023 3:58PM EST [id number] Normal [facility] Comprehensive metabolic 2000 panelon 04-12-2023 Albumin [Mass/Vol] 4.2 g/dL Normal 3.9-4.9 [facility] Comment on above: Order Comment: Luke viera Type: BLOOD SPECIMEN Ordering Facility: [facility] Address: [address] [place] [address] Performed By: #### 2 432-8, #### [facility] CLIA [id number] [address] [place] [address] [place] ALP [Catalytic activity/Vol] 93 U/L Normal 34-123 [facility] Comment on above: Order Comment: Luke viera Type: BLOOD SPECIMEN Ordering Facility: [facility] Address: [address] [place] [address] Performed By: #### 2 43205-13, #### [facility] CLIA [id number] [address] [place] [address] [place] ALT With P-5'-P [Catalytic activity/Vol] 30 U/L Normal 7-38 [facility] Comment on above: Order Comment: Luke viera Type: BLOOD SPECIMEN Ordering Facility: [facility] Address: [address] [place] [address] Performed By: #### 2 432-8, #### [facility] CLIA [id number] [address] [place] [address] [place] Anion gap [Moles/Vol] 14 mmol/L Normal 9-18 [facility] Comment on above: Order Comment: Speci men Type: BLOOD SPECIMEN Ordering Facility: [facility] Address: [address] [place] [address] Performed By: #### 2 4323-8, #### [facility] CLIA [id number] [address] [place] [address] [place] AST With P-5'-P [Catalytic activity/Vol] 20 U/L Normal 13-35 [facility] Comment on above: Order Comment: Speci men Type: BLOOD SPECIMEN Ordering Facility: [facility] Address: [address] [place] [address] Performed By: #### 2 4323-8, #### [facility] CLIA [id number] [address] [place] [address] [place] Bilirubin [Mass/Vol] 1.1 mg/dL Normal 0.2-1.3 [facility] Comment on above: Order Comment: Speci men Type: BLOOD SPECIMEN Ordering Facility: [facility] Address: [address] [place] [address] Performed By: #### 2 4323-8, #### [facility] CLIA [id number] [address] [place] [address] [place] Calcium [Mass/Vol] 9.3 mg/dL Normal 8.5-10.2 [facility] Comment on above: Order Comment: Speci men Type: BLOOD SPECIMEN Ordering Facility: [facility] Address: [address] [place] [address] Performed By: #### 2 4323-8, #### [facility] CLIA [id number] [address] [place] [address] [place] Chloride [Moles/Vol] 95 mmol/L Low 97-105 [facility] Comment on above: Order Comment: Speci men Type: BLOOD SPECIMEN Ordering Facility: [facility] Address: [address] [place], [place] [address] Performed By: #### 2 43238, #### [email or web address] CLIA [id number] [address] [place] [address] [facility] CO2 [Moles/Vol] 24 mmol/L Normal 22-30 [facility] Comment on above: Order Comment: Speci men Type: BLOOD SPECIMEN Ordering Facility: [facility] Address: [address] [place] [address] Performed By: #### 2 4328, #### [facility] CLIA [id number] [address] [place] [address] [facility] Creatinine [Mass/Vol] 0.78 mg/dL Normal 0.58-0.96 [facility] Comment on above: Order Comment: Derecki men Type: BLOOD SPECIMEN Ordering Facility: [facility] Address: [address] [place] [address] Performed By: #### 2 43238, #### [email or web address] [facility] CLIA [id number] [address] [place] [address] [facility] Creatinine and Glomerular filtration rate.predicted panel (S/P/Bld) 87 mL/min/1.73m??? Normal >=60 [facility] Comment on above: Order Comment: Derecki men Type: BLOOD SPECIMEN Ordering Facility: [facility] Address: [address] [place] [address] Result Comment: Gin mated Glomerular Filtration Rate (eGFR) is calculated using the 2020 CKD-EPI creatinine equation. This equation utilizes serum creatinine, sex, and age as parameters. The creatinine assay has traceable calibration to isotope dilution-mass spectrometry. Refer to KDIGO guidelines for clinical interpretation. In patients with unstable renal function, e.g. those with acute kidney injury, the eGFR may not accurately reflect actual GFR. Performed By: #### 2 4323-8, #### [facility] CLIA [id number] [address] [place] [address] [place] Glucose [Mass/Vol] 341 mg/dL High 74-99 [facility] Comment on above: Order Comment: Luke viera Type: BLOOD SPECIMEN Ordering Facility: [facility] Address: [address] [place] [address] Result Comment: The [place] Diabetes Association (ADA) provides guidance for cutoff values for fasting glucose and random glucose. The ADA defines fasting as no caloric intake for at least 8 hours. Fasting plasma glucose results between 100 to 125 mg/dL indicate increased risk for diabetes (prediabetes). Fasting plasma glucose results greater than or equal to 126 mg/dL meet the criteria for diagnosis of diabetes. In the absence of unequivocal hyperglycemia, results should be confirmed by repeat testing. In a patient with classic symptoms of hyperglycemia or hyperglycemic crisis, random plasma glucose results greater than or equal to 200 mg/dL meet the criteria for diagnosis of diabetes. Reference: Standards of Medical Care in Diabetes 2016, [place] [employer] Association. Diabetes Care. 2016.39(Suppl 1). Performed By: #### 2 4328, #### [facility] CLIA [id number] [address] [place] [address] [place] Potassium [Moles/Vol] 4.1 mmol/L Normal 3.7-5.1 [facility] Comment on above: Order Comment: Luke viera Type: BLOOD SPECIMEN Ordering Facility: [facility] Address: [address] [place] [address] Performed By: #### 2 4323-8, #### [facility] CLIA [id number] [address] [place] [address] [place] Protein [Mass/Vol] 6.8 g/dL Normal 6.3-8.0 [facility] Comment on above: Order Comment: Luke viera Type: BLOOD SPECIMEN Ordering Facility: [facility] Address: [address] [place] [address] Performed By: #### 2 4323-8, #### [facility] CLIA [id number] [address] [place] [address] [place] Sodium [Moles/Vol] 133 mmol/L Low 136-144 [facility] Comment on above: Order Comment: Dereckshanna aylin Type: BLOOD SPECIMEN Ordering Facility: [facility] Address: [address] [place] [address] Performed By: #### 2 4323-8, #### [facility] CLIA [id number] [address] [place] [address] [facility] Urea nitrogen [Mass/Vol] 24 mg/dL High 7-21 [facility] Comment on above: Order Comment: Specshanna men Type: BLOOD SPECIMEN Ordering Facility: [facility] Address: [address] [address] Performed By: #### 2 4323-8, #### [facility] CLIA [id number] [address] [place] [address] [facility] ED NOTEon 04-12-2023 ED NOTE HNO ID: [id number] Author: BINTA COLVIN RN Service: Nursing Author Type: Registered Nurse Type: ED Notes Filed: 04/12/2023 14:24 Note Text: Pt arrives with report of high blood sugar reading at home for the past couple of days. Pt reports reading last evening of 401. Pt took Metformin X2 last evening, and again this morning at about 0700. Pt checked level upon entering the room with reading of 348. Pt reports feeling dizzy, kind of stumbly. Pt denies pain Pt reports she called her PCP and was instructed to go to the closest ED to be evaluated. Normal [facility] ED PROV NOTEon 04-12-2023 ED PROV NOTE HNO ID: [id number] Author: DOE MORRISSEY MD Service: Emergency Medicine Author Type: Physician Type: ED Provider Notes Filed: 04/12/2023 17:08 Note Text: ED Provider Note Patient Name: Camila Harmon : 1960 SERVICE DATE: 04/12/23 History Patient presents with: High Blood Sugar HPI This is a 62-year-old female who has history as below, pertinent history of type 2 diabetes on oral medications, Amaryl, metformin, Trulicity who reports sugars have been well-controlled up until a few days ago presenting with complaints of elevated blood sugars for last few days. History provided by patient. Reports that over the last couple days has had elevated blood sugars despite compliance. States that yesterday evening she ate a salad and her sugar was 401. States that she took metformin x 2, again this morning about 7 AM. When she woke up states that her blood sugar was 348. States that she feels woozy and dizzy. Patient is also having tingling to her feet bilaterally. Reports that this is a Ongoing issue for last several months. States that it intermittently feels like amkk-zmx-zwkfueu and is somewhat numb. No personal history of diabetic neuropathy that she is aware of. States that she is never been referred to podiatry. Does not do regular foot checks. No headache. No chest pain, shortness of breath. No abdominal pain. That she is having polyuria. No dysuria, hematuria. Back pain or flank pain. No nausea or vomiting. States that she called her primary care team who recommended ED assessment. PAST MEDICAL HISTORY Diagnosis Date Coronary artery disease Depressive disorder, not elsewhere classified Enlarged liver Excessive or frequent menstruation 07/06/2004 s/p TVH Migraine with aura, without mention of intractable migraine without mention of status migrainosus Other anxiety states Pure hypercholesterolemia S/P primary angioplasty with coronary stent 11/06/2008 Type II or unspecified type diabetes mellitus without mention of complication, not stated as uncontrolled PAST SURGICAL HISTORY Procedure Laterality Date CARPAL TUNNEL Bilateral 03/05/2017 COLONOSCOPY FLX DX W/COLLJ SPEC WHEN PFRMD 07/19/2013 Colonoscopy EXTRACTION, ERUPTED TOOTH OR EXPOSED ROOT (ELEVATION AND/OR FORCEPS REMOVAL) wisdom teeth HEART CATHETERIZATION N/A 02/11/2022 HYSTERECTOMY HX PAST SURGICAL HISTORY OF 02/22/2002 BREAST REDUCTION PAST SURGICAL HISTORY OF 2008, 2011 stent, LAD X2. VAGINAL HYSTERECTOMY UTERUS 250 GM/< 07/2004 Hysterectomy, vaginal FAMILY HISTORY Problem Relation Age of Onset Hypertension Mother Diabetes Mother Heart Mother [place], age 72; first dx age late 60's Lipids Mother Stroke Mother Blindness Mother Hypertension Father Lipids Father Diabetes Father Social History Tobacco Use Smoking status: Former Years: 3 Types: Cigarettes Quit date: 06/02/2020 Years since quittin.8 Smokeless tobacco: Never Tobacco comments: social smoking for 3 years. Occasional smoking when upset Vaping Use Vaping Use: Never used Substance and Sexual Activity Alcohol use: Yes Comment: Socially Drug use: No Sexual activity: Yes Partners: Male Comment: TVH ALLERGIES Allergen Reactions Penicillins Hives Percocet [Oxycodone* GI Upset Tylenol-Codeine Prerna* Other: See Comments halucinations Review of Systems As per HPI Physical Exam Vitals [04/12/23 1410] BP Pulse Temp Temp src Resp SpO2 Weight Height 166/71 82 36 ?C (96.8 ?F) Temporal 14 97 % 90.7 kg (200 lb) 1.549 m (5' 1) Physical Exam Overall patient is non-toxic and in no obvious distress. Hemodynamically stable and afebrile Heart RRR w/o murmurs; Distal pulses intact Lungs CTAB Abd soft, NT, ND Patient moves all 4 extremities spontaneously and without deficit Cranial nerves II through XII grossly intact without deficit: Pupils are equal round reactive to light extraocular movements are intact. Face is bilaterally symmetrical motor and sensory. No facial droop appreciated. Tongue is midline on protrusion. Speech is clear and crisp, patient alert and oriented ?3. 5 out of 5 strength, motor and sensory to extremities ?4. No findings on cerebellar testing with finger to nose or pxud-yq-rzqq exam. Patient with even steady gait in the emergency room. Diagnostic Testing ED Labs Ordered and Reviewed COMP METABOLIC PANEL - Abnormal; Notable for the following components: Result Value Ref Range Glucose 341 (*) 74 - 99 mg/dL BUN 24 (*) 7 - 21 mg/dL Sodium 133 (*) 136 - 144 mmol/L Chloride 95 (*) 97 - 105 mmol/L All other components within normal limits MAGNESIUM BLD - Abnormal; Notable for the following components: Magnesium 1.4 (*) 1.7 - 2.3 mg/dL All other components within normal limits VENOUS BLOOD GASES - Abnormal; Notable for the following components: pO2, Venous <31 (*) 35 - 45 mmHg O2 Saturation, Venous 56 (*) 6 (more content not included)... Normal [facility] Gas and Carbon monoxide pane l (BldV)on 04-12-2023 BASE DEFICIT, VENOUS -1 mmol/L Normal -2-0 [facility] Comment on above: Order Comment: Speci men Type: VENOUS BLOOD SPECIMEN Ordering Facility: [facility] Address: [address] [place] [address] Performed By: #### 2 4344-4 #### [facility] CLIA [id number] [address] [place] [address] [place] Base excess Calc (BldV) [Moles/Vol] 0 mmol/L Normal 0-2 [facility] Comment on above: Order Comment: Speci men Type: VENOUS BLOOD SPECIMEN Ordering Facility: [facility] Address: [address] [place] [address] Performed By: #### 2 4344-4 #### [facility] CLIA [id number] [address] [place] [address] [place] Body temperature 97.88 [degF] Normal [facility] Comment on above: Order Comment: Speci men Type: VENOUS BLOOD SPECIMEN Ordering Facility: [facility] Address: [address] [place] [address] Performed By: #### 2 4344-4 #### [facility] CLIA [id number] [address] [place] [address] [place] Calcium.ionized (Bld) [Mass/Vol] 1.15 mmol/L Normal 1.08-1.30 [facility] Comment on above: Order Comment: Speci men Type: VENOUS BLOOD SPECIMEN Ordering Facility: [facility] Address: [address] [place] [address] Performed By: #### 2 4344-4 #### [facility] CLIA [id number] [address] [place] [address] [place] Calcium.ionized adjusted to pH 7.4 (BldA) [Moles/Vol] 1.14 mmol/L Normal 1.08-1.30 [facility] Comment on above: Order Comment: Speci men Type: VENOUS BLOOD SPECIMEN Ordering Facility: [facility] Address: [address] [place] [address] Performed By: #### 2 4344-4 #### [facility] CLIA [id number] [address] [place] [address] [facility] [place] Carboxyhemoglobin (BldV) [Mass fraction] 1.8 % Normal 0.0-2.0 [facility] Comment on above: Order Comment: Speci men Type: VENOUS BLOOD SPECIMEN Ordering Facility: [facility] Address: [address] [place] [address] Performed By: #### 2 4344-4 #### [facility] CLIA [id number] [address] [place] [address] [place] Chloride [Moles/Vol] 99 mmol/L Normal 97-105 [facility] Comment on above: Order Comment: Speci men Type: VENOUS BLOOD SPECIMEN Ordering Facility: [facility] Address: [address] [place] [address] Performed By: #### 2 4344-4 #### [facility] CLIA [id number] [address] [place] [address] [place] CO2 (BldV) [Partial pressure] 43 mm[Hg] Normal 42-55 [facility] Comment on above: Order Comment: Speci men Type: VENOUS BLOOD SPECIMEN Ordering Facility: [facility] Address: [address] [place] [address] Performed By: #### 2 4344-4 #### [facility] CLIA [id number] [address] [place] [address] [facility] [place] CO2 adjusted to patient's actual temperature (BldV) [Partial pressure] 42 mmHg Normal 42-55 [facility] Comment on above: Order Comment: Speci men Type: VENOUS BLOOD SPECIMEN Ordering Facility: [facility] Address: [address] [place] [address] Performed By: #### 2 4344-4 #### [facility] CLIA [id number] [address] [place] [address] [place] Glucose [Mass/Vol] 323 mg/dL High 60-105 [facility] Comment on above: Order Comment: Speci men Type: VENOUS BLOOD SPECIMEN Ordering Facility: [facility] Address: [address] [place] [address] Performed By: #### 2 4344-4 #### [facility] CLIA [id number] [address] [place] [address] [place] HCO3 (Bld) [Moles/Vol] 25 mmol/L Normal 24-28 [facility] Comment on above: Order Comment: Speci men Type: VENOUS BLOOD SPECIMEN Ordering Facility: [facility] Address: [address] [place] [address] Performed By: #### 2 4344-4 #### [facility] CLIA [id number] [address] [place] [address] [place] Hematocrit (Bld) [Volume fraction] 44.8 % Normal 36.0-46.0 [facility] Comment on above: Order Comment: Speci men Type: VENOUS BLOOD SPECIMEN Ordering Facility: [facility] Address: [address] [place] [address] Performed By: #### 2 4344-4 #### [facility] CLIA [id number] [address] [place] [address] [place] Hemoglobin (Bld) [Mass/Vol] 14.6 g/dL Normal 11.5-15.5 [facility] Comment on above: Order Comment: Speci men Type: VENOUS BLOOD SPECIMEN Ordering Facility: [facility] Address: [address] [place] [address] Performed By: #### 2 4344-4 #### [facility] CLIA [id number] [address] [place] [address] [place] Lactate [Moles/Vol] 2.0 mmol/L Normal 0.5-2.2 [facility] Comment on above: Order Comment: Speci men Type: VENOUS BLOOD SPECIMEN Ordering Facility: [facility] Address: [address] [place] [address] Performed By: #### 2 4344-4 #### [facility] CLIA [id number] [address] [place] [address] [place] Methemoglobin (Bld) [Mass fraction] 1.1 % Normal 0.0-1.5 [facility] Comment on above: Order Comment: Speci men Type: VENOUS BLOOD SPECIMEN Ordering Facility: [facility] Address: [address] [place] [address] Performed By: #### 2 4344-4 #### [facility] CLIA [id number] [address] [place] [address] [facility] [place] Oxygen (BldV) [Partial pressure] mm[Hg] Low 35-45 [facility] Comment on above: Order Comment: Speci men Type: VENOUS BLOOD SPECIMEN Ordering Facility: [facility] Address: [address] [place] [address] Performed By: #### 2 4344-4 #### [facility] CLIA [id number] [address] [place] [address] [facility] [place] Oxygen adjusted to patient's actual temperature (BldV) [Partial pressure] Normal [facility] Comment on above: Order Comment: Speci men Type: VENOUS BLOOD SPECIMEN Ordering Facility: [facility] Address: [address] [place] [address] Performed By: #### 2 4344-4 #### [facility] CLIA [id number] [address] [place] [address] [place] Oxygen saturation in Venous blood 56 % Low 60-85 [facility] Comment on above: Order Comment: Speci men Type: VENOUS BLOOD SPECIMEN Ordering Facility: [facility] Address: [address] [place] [address] Performed By: #### 2 4344-4 #### [facility] CLIA [id number] [address] [place] [address] [place] Oxyhemoglobin (BldV) [Mass fraction] 54 % Low 60-85 [facility] Comment on above: Order Comment: Speci men Type: VENOUS BLOOD SPECIMEN Ordering Facility: [facility] Address: [address] [place] [address] Performed By: #### 2 4344-4 #### [facility] CLIA [id number] [address] [place] [address] [place] pH (BldV) 7.37 [pH] Normal 7.32-7.42 [facility] Comment on above: Order Comment: Speci men Type: VENOUS BLOOD SPECIMEN Ordering Facility: [facility] Address: [address] [place] [address] Performed By: #### 2 4344-4 #### [facility] CLIA [id number] [address] [place] [address] [place] pH adjusted to patient's actual temperature (BldV) 7.38 Normal 7.32-7.42 [facility] Comment on above: Order Comment: Speci men Type: VENOUS BLOOD SPECIMEN Ordering Facility: [facility] Address: [address] [place] [address] Performed By: #### 2 4344-4 #### [facility] CLIA [id number] [address] [place] [address] [place] Potassium [Moles/Vol] 4.0 mmol/L Normal 3.5-5.0 [facility] Comment on above: Order Comment: Speci men Type: VENOUS BLOOD SPECIMEN Ordering Facility: [facility] Address: [address] [place] [address] Performed By: #### 2 4344-4 #### [facility] CLIA [id number] [address] [place] [address] [place] Sodium [Moles/Vol] 137 mmol/L Normal 136-144 [facility] Comment on above: Order Comment: Speci men Type: VENOUS BLOOD SPECIMEN Ordering Facility: [facility] Address: [address] [place] [address] Performed By: #### 2 4344-4 #### [facility] CLIA [id number] [address] [place] [address] [place] Magnesium SerPl-mCncon 04-12 Magnesium [Mass/Vol] 1.4 mg/dL Low 1.7-2.3 [facility] Comment on above: Order Comment: Speci men Type: BLOOD SPECIMEN Ordering Facility: [facility] Address: [address] [place] [address] Performed By: #### 2 4323-8, 57019-5 #### [facility] CLIA [id number] [address] [place] [address] [facility] Urinalysis complete panel (U )on 04-12-2023 Bilirubin Ql (U) Negative Normal Negative [facility] Comment on above: Order Comment: Speci men Type: URINE SPECIMEN Ordering Facility: [facility] Address: [address] [place] [address] Performed By: #### 2 4356-8 #### [facility] CLIA [id number] [address] [place] [address] [facility] [place] Clarity (Unsp spec) Clear Normal Clear [facility] Comment on above: Order Comment: Speci men Type: URINE SPECIMEN Ordering Facility: [facility] Address: [address] [place] [address] Performed By: #### 2 4356-8 #### [facility] CLIA [id number] [address] [place] [address] [facility] Color (U) Yellow Normal Yellow [facility] Comment on above: Order Comment: Speci men Type: URINE SPECIMEN Ordering Facility: [facility] Address: [address] [place] [address] Performed By: #### 2 4356-8 #### [facility] CLIA [id number] [address] [place] [address] [facility] Glucose Test strip (U) [Mass/Vol] 3+ Abnormal Negative [facility] Comment on above: Order Comment: Speci men Type: URINE SPECIMEN Ordering Facility: [facility] Address: [address] [place] [address] Performed By: #### 2 4356-8 #### [facility] CLIA [id number] [address] [place] [address] [facility] Hemoglobin Ql (U) Negative Normal Negative [facility] Comment on above: Order Comment: Speci men Type: URINE SPECIMEN Ordering Facility: [facility] Address: [address] [place] [address] Performed By: #### 2 4356-8 #### [facility] CLIA [id number] [address] [place] [address] [facility] Ketones Ql (U) Negative Normal Negative [facility] Comment on above: Order Comment: Speci men Type: URINE SPECIMEN Ordering Facility: [facility] Address: [address] [place] [address] Performed By: #### 2 4356-8 #### [facility] CLIA [id number] [address] [place] [address] [facility] [place] Leukocyte esterase Test strip Ql (U) Negative Normal Negative [facility] Comment on above: Order Comment: Speci men Type: URINE SPECIMEN Ordering Facility: [facility] Address: [address] [place] [address] Performed By: #### 2 4356-8 #### [facility] CLIA [id number] [address] [place] [address] [place] Nitrite Ql (U) Negative Normal Negative [facility] Comment on above: Order Comment: Speci men Type: URINE SPECIMEN Ordering Facility: [facility] Address: [address] [place] [address] Performed By: #### 2 4356-8 #### [facility] CLIA [id number] [address] [place] [address] [place] pH (U) 5.5 [pH] Normal 5.0-8.0 [facility] Comment on above: Order Comment: Speci men Type: URINE SPECIMEN Ordering Facility: [facility] Address: [address] [place] [address] Performed By: #### 2 4356-8 #### [facility] CLIA [id number] [address] [place] [address] [facility] Protein (U) [Mass/Vol] Negative Normal Negative [facility] Comment on above: Order Comment: Speci men Type: URINE SPECIMEN Ordering Facility: [facility] Address: [address] [place] [address] Performed By: #### 2 4356-8 #### [facility] CLIA [id number] [address] [place] [address] [place] RBC LM.HPF (Urine sed) [#/Area] 0-3 /HPF Normal 0-3 /HPF [facility] Comment on above: Order Comment: Speci men Type: URINE SPECIMEN Ordering Facility: [facility] Address: [address] [place] [address] Performed By: #### 2 4356-8 #### [facility] CLIA [id number] [address] [place] [address] [place] Specific gravity (U) [Rel density] 1.020 Normal 1.005-1.030 [facility] Comment on above: Order Comment: Speci men Type: URINE SPECIMEN Ordering Facility: [facility] Address: [address] [place] [address] Performed By: #### 2 4356-8 #### [facility] CLIA [id number] [address] [place] [address] Urobilinogen Ql (U) 0.2 EU/dL Normal 0.2-1.0 EU/dL [facility] Comment on above: Order Comment: Speci men Type: URINE SPECIMEN Ordering Facility: [facility] Address: [address] [place] [address] Performed By: #### 2 4356-8 #### [facility] CLIA [id number] [address] [place] [address] [place] WBC LM.HPF (Urine sed) [#/Area] 0-5 /HPF Normal 0-5 /HPF [facility] Comment on above: Order Comment: Speci men Type: URINE SPECIMEN Ordering Facility: [facility] Address: [address] [place] [address] Performed By: #### 2 4356-8 #### [facility] CLIA [id number] [address] [place] [address] [place] UA DIP, URINE (POC)on 2022 BILIRUBIN UA (POCT) Negative Negative [facility] CLARITY UA (POCT) Slightly Cloudy Cl [facility] COLOR UA (POCT) Yellow [facility] GLUCOSE UA (POCT) 500 mg/dL Abnormal Negative mg/dL [facility] Hemoglobin Ql (U) Trace-intact Abnormal Negative [facility] KETONE UA (POCT) Negative Negative mg/dL [facility] LEUKOCYTES UA (POCT) Negative Negative [facility] NITRITE UA (POCT) Negative Negative [facility] PH UA (POCT) 5.5 4.5 - 8.0 [facility] Protein Ql (U) Negative Negative mg/dL [facility] SPECIFIC GRAVITY UA (POCT) 1.020 1.005 - 1.030 [facility] UROBILINOGEN UA (POCT) 0.2 E.U./dL Normal E.U./dL [facility] ED NOTEon 09-27-2022 ED NOTE HNO ID: [id number] Author: Florentino Edward RN Service: Emergency Medicine Author Type: Registered Nurse Type: ED Notes Filed: 09/27/2022 9:29 PM Note Text: Patient discharge instructions given to patient, patient educated on discharge instructions. Patient denied having questions at this time regarding discharge instructions. Patient discharged home with patient's family member at this time. Patient ambulated out of the emergency department with a steady gait at this time. Normal [facility] ED PROV NOTEon 09-27-2022 ED PROV NOTE HNO ID: [id number] Author: Karen Bustos DO Service: Emergency Medicine Author Type: Physician Type: ED Provider Notes Filed: 09/27/2022 9:49 PM Note Text: ED Provider Note Patient Name: Camila Harmon : 1960 SERVICE DATE: 09/27/22 History Patient presents with: Leg Pain Camila Harmon is a 61 year old female with history of multiple chronic medical problems who presents with Leg Pain. - Symptoms began off and on since June, with this episode worsening over the past couple days. - Severity: moderate - Timing: constant - Quality: sore - Symptoms are associated with pain in right lower back/buttock radiates down right leg. - Symptoms are not associated with abdominal pain, chest pain, chills, fever, nausea, rash, shortness of breath, URI symptoms, vomiting, numbness, weakness, bowel or bladder incontinence, saddle paresthesias, midline back pain. Patient states that she has had intermittent pain in her right lower back/buttock area that radiates down her right leg since a twisting-type injury in June. She denies any recent fall or injury. She states this episode started worsening a couple days ago. She states that she has no midline back pain. No bowel or bladder incontinence. No saddle paresthesias. No numbness or weakness. No dysuria hematuria. No flank pain or abdominal pain. No chest pain or shortness of breath. PAST MEDICAL HISTORY Diagnosis Date Coronary artery disease Depressive disorder, not elsewhere classified Enlarged liver Excessive or frequent menstruation 07/06/2004 s/p TVH Migraine with aura, without mention of intractable migraine without mention of status migrainosus Other anxiety states Pure hypercholesterolemia S/P primary angioplasty with coronary stent 11/06/2008 Type II or unspecified type diabetes mellitus without mention of complication, not stated as uncontrolled PAST SURGICAL HISTORY Procedure Laterality Date CARPAL TUNNEL Bilateral 03/05/2017 COLONOSCOPY FLX DX W/COLLJ SPEC WHEN PFRMD 07/19/2013 Colonoscopy EXTRACTION, ERUPTED TOOTH OR EXPOSED ROOT (ELEVATION AND/OR FORCEPS REMOVAL) wisdom teeth HEART CATHETERIZATION N/A 02/11/2022 HYSTERECTOMY HX PAST SURGICAL HISTORY OF 02/22/2002 BREAST REDUCTION PAST SURGICAL HISTORY OF 2008, 2011 stent, LAD X2. VAGINAL HYSTERECTOMY UTERUS 250 GM/< 07/2004 Hysterectomy, vaginal FAMILY HISTORY Problem Relation Age of Onset Hypertension Mother Diabetes Mother Heart Mother [place], age 72; first dx age late 60's Lipids Mother Stroke Mother Blindness Mother Hypertension Father Lipids Father Diabetes Father Social History Tobacco Use Smoking status: Former Years: 3.00 Types: Cigarettes Quit date: 06/02/2020 Years since quittin.3 Smokeless tobacco: Never Tobacco comments: social smoking for 3 years. Occasional smoking when upset Vaping Use Vaping Use: Never used Substance and Sexual Activity Alcohol use: Yes Comment: Socially Drug use: No Sexual activity: Yes Partners: Male Comment: [facility] ALLERGIES Allergen Reactions Penicillins Hives Percocet [Oxycodone* GI Upset Tylenol-Codeine Prerna* Other: See Comments halucinations Review of Systems Constitutional: Negative for chills and fever. Respiratory: Negative for shortness of breath. Cardiovascular: Negative for chest pain. Gastrointestinal: Negative for abdominal pain, nausea and vomiting. Genitourinary: Negative for dysuria, flank pain, hematuria and pelvic pain. Musculoskeletal: Positive for back pain. Negative for neck pain. Skin: Negative for rash. Neurological: Negative for syncope, weakness, numbness and headaches. Psychiatric/Behavioral: Negative for agitation and confusion. Physical Exam Vitals [09/27/22 1903] BP Pulse Temp Temp src Resp SpO2 Weight Height 164/79 89 36.6 ?C (97.9 ?F) Temporal 16 97 % 97.3 kg (214 lb 6.4 oz) -- Physical Exam Vitals and nursing note reviewed. Constitutional: General: She is not in acute distress. Appearance: She is not ill-appearing, toxic-appearing or diaphoretic. HENT: Head: Normocephalic and atraumatic. Eyes: General: No scleral icterus. Conjunctiva/sclera: Conjunctivae normal. Cardiovascular: Rate and Rhythm: Normal rate and regular rhythm. Pulses: Normal pulses. Pulmonary: Effort: Pulmonary effort is normal. Breath sounds: Normal breath sounds. Abdominal: General: Bowel sounds are normal. There is no distension. Palpations: Abdomen is soft. Tenderness: There is no abdominal tenderness. There is no right CVA tenderness or left CVA tenderness. Musculoskeletal: Cervical back: No signs of trauma, tenderness or bony tenderness. Thoracic back: No signs of trauma, tenderness or bony tenderness. Lumbar back: Tenderness present. No swelling, edema, deformity, signs of trauma, lacerations or bony tenderness. Normal range of motion. Positive rig (more content not included)... Normal [facility] XR LUMBAR 3V AP/LAT/L5-S1on 09-27-2022 XR LUMBAR 3V AP/LAT/L5-S1 * * *Final Report* * * DATE OF EXAM: Sep 27 2022 7:49PM LDX 5228 - XR LUMBAR 3V AP/LAT/L5-S1 / PROCEDURE REASON: Low back pain, no red flags, no prior management * * * * Physician Interpretation * * * * EXAM TITLE: XR LUMBAR 3V AP/LAT/L5-S1 DATE: 09/27/2022 COMPARISON: None. CLINICAL INDICATION/HISTORY: Back and right buttock/lower extremity pain TECHNIQUE: AP, lateral and coned-down lateral views FINDINGS: No fracture or compression deformity. Spondylolisthesis at L4-5. There is mild lower lumbar facet joint arthrosis. Sacroiliac joints are grossly intact. Aortic calcification. IMPRESSION:No acute abnormality. Follow-up as indicated. Ob Scrub Tech: AISSATOU Transcribe Date/Time: Sep 27 2022 9:01P Dictated by : HUSSAIN NAYLOR MD This examination was interpreted and the report reviewed and electronically signed by: HUSSAIN NAYLOR MD on Sep 27 2022 9:02PM EST [id number] Normal [facility] No Panel Informationon 09-18 [facility] XR SHOULDER GENERAL 3V OR MO RE AP/TRUE AP/OTHER LEFTon 08-21-2021 [facility] XR Shoulder - left 3 Viewson 08-21-2021 IMPRESSION: Findings are suggestive of degenerative changes in the acromioclavicular joint. Supraspinatus tendon calcifications. Ob Scrub Tech: [facility] Transcribe Date/Time: Aug 21 2021 3:38P Dictated by : SHAN EDEN MD This examination was interpreted and the report reviewed and electronically signed by: SHAN EDEN MD on Aug 21 2021 3:40PM EST ZZZ_DO_NOT_ USE_DIVISIO N OF RADIOLOGY * * *Final Report* * * DATE OF EXAM: Aug 21 2021 3:33PM WOX 5252 - XR SHLDR >/=3V AP/ERON AP/OTHR LT / PROCEDURE REASON: Acute pain of left shoulder * * * * Physician Interpretation * * * * EXAM TITLE: XR SHLDR >/=3V AP/ERON AP/OTHR LT EXAM DATE/TIME: 08/21/2021 3:33 PM COMPARISON: None. CLINICAL INDICATION/HISTORY: Shoulder pain. TECHNIQUE: AP, true AP and axillary views of the left shoulder are presented FINDINGS: No acute fractures or subluxations are noted. There appears be mild acromioclavicular joint space narrowing, with associated osteophyte formation and bony stenosis. Normal appearance of the glenohumeral joint. The acromiohumeral interval is maintained. The mineralization of the bones is normal. There are supraspinatus tendon calcifications. ZZZ_DO_NOT_ USE_DIVISIO N OF RADIOLOGY Provider, Curly Maria [facility] - 08/21/2021 * * *Final Report* * * DATE OF EXAM: Aug 21 2021 3:33PM WOX 5252 - XR SHLDR >/=3V AP/ERON AP/OTHR LT / PROCEDURE REASON: Acute pain of left shoulder * * * * Physician Interpretation * * * * EXAM TITLE: XR SHLDR >/=3V AP/ERON AP/OTHR LT EXAM DATE/TIME: 08/21/2021 3:33 PM COMPARISON: None. CLINICAL INDICATION/HISTORY: Shoulder pain. TECHNIQUE: AP, true AP and axillary views of the left shoulder are presented FINDINGS: No acute fractures or subluxations are noted. There appears be mild acromioclavicular joint space narrowing, with associated osteophyte formation and bony stenosis. Normal appearance of the glenohumeral joint. The acromiohumeral interval is maintained. The mineralization of the bones is normal. There are supraspinatus tendon calcifications. IMPRESSION IMPRESSION: Findings are suggestive of degenerative changes in the acromioclavicular joint. Supraspinatus tendon calcifications. Ob Scrub Tech: AISSATOU Transcribe Date/Time: Aug 21 2021 3:38P Dictated by : SHAN EDEN MD This examination was interpreted and the report reviewed and electronically signed by: SHAN EDEN MD on Aug 21 2021 3:40PM EST [facility] Radiology Study observation (narrative) [facility] XR Shoulder - left 3 ViewsOr dered By: Ccf Provider on 08-21-2021 [facility] Virtual Office Visiton 03-17 Virtual Office Visit [facility] [address] [place] [address] OFFICE VISIT Date of Service: 03/18/21 MR#: [id number] Acct: [id number] Patient: CAMILA HARMON Rep #: [id number] : 1960 Provider: DERIAN cabrera Age/Sex: 60/F [place] [facility] [place] Signed Intake Intake Visit Reasons: COVID-19 Allergies codeine phosphate [From Tylenol-Codeine #3] Allergy (Verified 03/18/21 09:49) Other Penicillins Allergy (Verified 03/18/21 09:49) Hives oxycodone HCl [From Percocet] Adverse Reaction (Verified 03/18/21 09:49) Upset Stomach PFSH Social History Smoking Status: Current some day smoker tobacco type: cigarettes HPI HPI Details: Patient was informed that this visit will be billed to patient. This visit was conducted during COVID-19 pandemic. Statement read to the patient: This telehealth visit is being offered during our stay at home measures in response to the pandemic. It is subject to an office visit charge. There are also charges for the monoclonal antibody infusion which may or may not be covered by your insurance. The patient consents to continue. The FDA has authorized the emergency use of monoclonal antibody treatment (bamlanivimab/etesevima b or casirivimab/imdevimab) for mild to moderate COVID-19 in adults and pediatric patients with positive results of direct SARS-Cov-2 viral testing ages 12 and older, at least 40 kg, who are at high risk for progressing to severe COVID-19 and or hospitalization. The significant known and potential risks (allergic reactions, worsening of symptoms after treatment, or side effects from injection including brief pain, bleeding, bruising of the skin, soreness, swelling, possible infection at the infusion site) and benefits (decrease chance of progression to severe COVID-19) of a monoclonal antibody infusion, and the extent to which such potential risks and benefits are unknown. Note that worsening symptoms after treatment may occur but it is unknown whether these symptoms are related to treatment or are due to the progression of COVID-19. Worsening symptoms may include: fever, difficulty breathing, rapid or slow heart rate, tiredness, weakness or confusion. If these symptoms occur, patients are encouraged to seek immediate medical attention. These treatments are still being studied, all possible side effects may not be listed or known at this time. Patients treated with monoclonal antibody infusion should continue to self-isolate and use infection control measures (such as wear mask, isolate, social distance, avoid sharing personal items, clean and disinfect high touch surfaces, and frequent handwashing) according to the CDC guidelines. The fact sheet will be provided prior to the administration of the medication. Oral medications have received authorization from the FDA to treat [id number] COVID-19 in patients at high risk for progression to severe COVID-19. These medications may not be appropriate for all patients and available drug supply may be limited. However, these oral medications may be more effective against the omicron variant. The patient had the option to refuse or accept treatment with monoclonal antibody therapy. The patient was informed that the number of people treated with monoclonal antibody therapy at this time is small. Due to the changes in the virus that causes COVID-19, some monoclonal antibody treatments may not be effective for all forms of the virus (known as variants). This includes the omicron variant. The patient stated understanding of this information communicated and wished to proceed with monoclonal antibody infusion therapy. COVID + test date: 03/13/21 @ [facility] Sx Onset: 03/12/21 Sx: cough, congestion, fatigue, fever,loose stools, sore throat, PND O2: No Age: 60 yrs Vaccine: Pfizer x3 Qualifier: HTN, DM ROS Const Constitutional: Positive for fatigue, fever(s), decreased energy and malaise ENT ENT: Positive for post nasal drip and sore throat Resp Respiratory: Positive for cough and chest congestion Endo Endocrine: Positive for fatigue Exam Const General: cooperative and no acute distress Resp Effort Inspection: normal respiratory effort and able to speak in complete sentences Neuro General: patient alert, patient awake and patient oriented x3 Cognition: normal cognition Speech: speech normal Psych Mental Status: mental status grossly normal Mood: congruent mood Attitude: cooperative Thought Process: normal Thought Content: normal Judgment: judgment good Details: Details:: Exam was limited due to phone visit with no video. Quality Reporting Tobacco Screening ([facility] 138) Smoking Status: Current some day smoker Coding Level of Care Code New Pt Level 1 Telephone Patient Type New History Problem (more content not included)... Normal [facility] XR Chest PA and Lateralon IMPRESSION: No acute radiographic abnormality. Ob Scrub Tech: AISSATOU Transcribe Date/Time: Feb 27 2021 4:25P Dictated by : ELOISA STAHL MD This examination was interpreted and the report reviewed and electronically signed by: ELOISA STAHL MD on Feb 27 2021 4:25PM [facility] DIVISION OF RADIOLOGY * * *Final Report* * * DATE OF EXAM: Feb 27 2021 4:19PM WOX 5291 - XR CHEST 2V FRONTAL/LAT / PROCEDURE REASON: multiple diagnoses * * * * Physician Interpretation * * * * EXAMINATION: CHEST RADIOGRAPH (2 VIEW FRONTAL & LATERAL) CLINICAL HISTORY: Cough Pain of right side of body MQ: XC2_6 EXAM DATE/TIME: 02/27/2021 4:19 PM COMPARISON: No relevant prior studies available. RESULT: Lines, tubes, and devices: None. Lungs and pleura: No consolidation. No lung mass. No pleural effusion. No pneumothorax. Cardiomediastinal silhouette: Normal cardiomediastinal silhouette. Bones and soft tissues: Degenerative changes are present within the thoracic spine. DIVISION OF RADIOLOGY Provider, Curly [facility] - 02/27/2021 * * *Final Report* * * DATE OF EXAM: Feb 27 2021 4:19PM WOX 5291 - XR CHEST 2V FRONTAL/LAT / PROCEDURE REASON: multiple diagnoses * * * * Physician Interpretation * * * * EXAMINATION: CHEST RADIOGRAPH (2 VIEW FRONTAL & LATERAL) CLINICAL HISTORY: Cough Pain of right side of body MQ: XC2_6 EXAM DATE/TIME: 02/27/2021 4:19 PM COMPARISON: No relevant prior studies available. RESULT: Lines, tubes, and devices: None. Lungs and pleura: No consolidation. No lung mass. No pleural effusion. No pneumothorax. Cardiomediastinal silhouette: Normal cardiomediastinal silhouette. Bones and soft tissues: Degenerative changes are present within the thoracic spine. IMPRESSION IMPRESSION: No acute radiographic abnormality. Ob Scrub Tech: AISSATOU Transcribe Date/Time: Feb 27 2021 4:25P Dictated by : ELOISA STAHL MD This examination was interpreted and the report reviewed and electronically signed by: ELOISA STAHL MD on Feb 27 2021 4:25PM [facility] Radiology Study observation (narrative) [facility] XR Chest PA and LateralOrder ed By: Ccf Provider on 02-27-2021 [facility] XR Shoulder - right 3 Viewso n 08-12-2020 IMPRESSION: Degenerative changes as discussed Ob Scrub Tech: [facility] Transcribe Date/Time: Aug 12 2020 9:21A Dictated by : EMILY ENRIQUE DO This examination was interpreted and the report reviewed and electronically signed by: EMILY ENRIQUE DO on Aug 12 2020 9:21AM [facility] DIVISION OF RADIOLOGY * * *Final Report* * * DATE OF EXAM: Aug 12 2020 9:09AM WOX 5253 - XR SHLDR >/=3V AP/ERON AP/OTHR RT / PROCEDURE REASON: multiple diagnoses * * * * Physician Interpretation * * * * RIGHT shoulder EXAM DATE/TIME: 08/12/2020 9:09 AM HISTORY: 59 years old Clinical information: Acute pain of right shoulder Chronic right shoulder pain Chronic right shoulder pain pt states pain for 6-12 months in right shoulder. starts in elbow and goes all the way up to right side of neck and posterior shoulder no inj TECHNIQUE: Images: XR SHLDR >/=3V AP/ERON AP/OTHR RT Comparison: None. RESULT: Findings: Moderate narrowing of the AC joint. Mild narrowing of the glenohumeral joint. Bone density appears well-preserved. No fractures or dislocations are seen. DIVISION OF RADIOLOGY Provider, [facility] - 08/12/2020 * * *Final Report* * * DATE OF EXAM: Aug 12 2020 9:09AM WOX 5253 - XR SHLDR >/=3V AP/ERON AP/OTHR RT / PROCEDURE REASON: multiple diagnoses * * * * Physician Interpretation * * * * RIGHT shoulder EXAM DATE/TIME: 08/12/2020 9:09 AM HISTORY: 59 years old Clinical information: Acute pain of right shoulder Chronic right shoulder pain Chronic right shoulder pain pt states pain for 6-12 months in right shoulder. starts in elbow and goes all the way up to right side of neck and posterior shoulder no inj TECHNIQUE: Images: XR SHLDR >/=3V AP/ERON AP/OTHR RT Comparison: None. RESULT: Findings: Moderate narrowing of the AC joint. Mild narrowing of the glenohumeral joint. Bone density appears well-preserved. No fractures or dislocations are seen. IMPRESSION IMPRESSION: Degenerative changes as discussed Ob Scrub Tech: AISSATOU Transcribe Date/Time: Aug 12 2020 9:21A Dictated by : EMILY ENRIQUE DO This examination was interpreted and the report reviewed and electronically signed by: EMILY ENRIQUE DO on Aug 12 2020 9:21AM EST [facility] Radiology Study observation (narrative) [facility] XR Shoulder - right 3 ViewsO rdered By: Ccf Provider on 08-12-2020 [facility] Vital Signs Date Time Vital Sign Value Performing Clinician Cody ziegler 09-06-2024 09:20-0400 Body height 152.4 cm Verónica Cioce CONTROLS ENGINEER.SHIPPING ORDER CLERK Work Phone: [facility] 09-06-2024 09:20-0400 Body mass index (BMI) [Ratio] 37.03 kg/m2 Verónica Cioce CONTROLS ENGINEER.SHIPPING ORDER CLERK Work Phone: [facility] 09-06-2024 09:20-0400 Body weight 86 kg Verónica Cioce CONTROLS ENGINEER.SHIPPING ORDER CLERK Work Phone: [facility] 09-06-2024 09:20-0400 Diastolic blood pressure 72 mm[Hg] Verónica Cioce CONTROLS ENGINEER.SHIPPING ORDER CLERK Work Phone: [facility] 09-06-2024 09:20-0400 Heart rate 77 /min Verónica Cioce CONTROLS ENGINEER.SHIPPING ORDER CLERK Work Phone: [facility] 09-06-2024 09:20-0400 Respiratory rate 20 /min Verónica Cioce CONTROLS ENGINEER.SHIPPING ORDER CLERK Work Phone: [facility] 09-06-2024 09:20-0400 SaO2% (BldA) [Mass fraction] 96 % Verónica Cioce CONTROLS ENGINEER.SHIPPING ORDER CLERK Work Phone: [facility] 09-06-2024 09:20-0400 Systolic blood pressure 128 mm[Hg] Verónica Cioce CONTROLS ENGINEER.SHIPPING ORDER CLERK Work Phone: [facility] 07-06-2024 10:33-0400 Body mass index (BMI) [Ratio] 37.28 kg/m2 Emily Wang MD Work Phone: [facility] 07-06-2024 10:33-0400 Body weight 87.3 kg Emily Wang MD Work Phone: [facility] 07-06-2024 10:33-0400 Diastolic blood pressure 70 mm[Hg] Emily Wang MD Work Phone: [facility] 07-06-2024 10:33-0400 Heart rate 78 /min Emily Wang MD Work Phone: [facility] 07-06-2024 10:33-0400 Respiratory rate 18 /min Emily Wang MD Work Phone: [facility] 07-06-2024 10:33-0400 Systolic blood pressure 120 mm[Hg] Emily Wang MD Work Phone: [facility] 06-26-2024 14:29-0400 Body mass index (BMI) [Ratio] 37.57 kg/m2 Camila Suppan CONTROLS ENGINEER.SHIPPING ORDER CLERK Work Phone: [facility] 06-26-2024 14:29-0400 Body temperature 97.3 [degF] Camila Suppan CONTROLS ENGINEER.SHIPPING ORDER CLERK Work Phone: [facility] 06-26-2024 14:29-0400 Body weight 88 kg Camila Suppan CONTROLS ENGINEER.SHIPPING ORDER CLERK Work Phone: [facility] 06-26-2024 14:29-0400 Diastolic blood pressure 70 mm[Hg] Camila Suppan CONTROLS ENGINEER.SHIPPING ORDER CLERK Work Phone: [facility] 06-26-2024 14:29-0400 Heart rate 85 /min Camila Suppan CONTROLS ENGINEER.SHIPPING ORDER CLERK Work Phone: [facility] 06-26-2024 14:29-0400 SaO2% (BldA) [Mass fraction] 93 % Camila Suppan CONTROLS ENGINEER.SHIPPING ORDER CLERK Work Phone: [facility] 06-26-2024 14:29-0400 Systolic blood pressure 128 mm[Hg] Camila Suppan CONTROLS ENGINEER.SHIPPING ORDER CLERK Work Phone: [facility] 06-12-2024 19:25-0400 Body mass index (BMI) [Ratio] 37.49 kg/m2 Emily Wang MD Work Phone: [facility] 06-12-2024 19:25-0400 Body weight 87.8 kg Emily Wang MD Work Phone: [facility] 06-12-2024 19:25-0400 Diastolic blood pressure 68 mm[Hg] Emily Wang MD Work Phone: [facility] 06-12-2024 19:25-0400 Heart rate 68 /min Emily Wang MD Work Phone: [facility] 06-12-2024 19:25-0400 Respiratory rate 18 /min Emily Wang MD Work Phone: [facility] 06-12-2024 19:25-0400 Systolic blood pressure 124 mm[Hg] Emily Wang MD Work Phone: [facility] 04-24-2024 10:18-0500 Body height 153 cm Hawa Padron MD Work Phone: [facility] 04-24-2024 10:18-0500 Diastolic blood pressure 64 mm[Hg] Hawa Padron MD Work Phone: [facility] 04-24-2024 10:18-0500 Heart rate 78 /min Hawa Padron MD Work Phone: [facility] 04-24-2024 10:18-0500 SaO2% (BldA) [Mass fraction] 98 % Hawa Padron MD Work Phone: [facility] 04-24-2024 10:18-0500 Systolic blood pressure 136 mm[Hg] Hawa Padron MD Work Phone: [facility] 12-09-2023 14:33-0400 Body mass index (BMI) [Ratio] 37.53 kg/m2 Hawa Padron MD Work Phone: [facility] 12-09-2023 14:33-0400 Body weight 90.1 kg Hawa Padron MD Work Phone: [facility] 12-09-2023 14:33-0400 Diastolic blood pressure 78 mm[Hg] Hawa Padron MD Work Phone: [facility] 12-09-2023 14:33-0400 Heart rate 75 /min Hawa Padron MD Work Phone: [facility] 12-09-2023 14:33-0400 SaO2% (BldA) [Mass fraction] 99 % Hawa Padron MD Work Phone: [facility] 12-09-2023 14:33-0400 Systolic blood pressure 118 mm[Hg] Hawa Padron MD Work Phone: [facility] 11-10-2023 17:06-0400 Body mass index (BMI) [Ratio] 37.53 kg/m2 Aileen Quintanilla CONTROLS ENGINEER.SHIPPING ORDER CLERK Work Phone: [facility] 11-10-2023 17:06-0400 Body weight 90.1 kg Aileen Franklinf CONTROLS ENGINEER.SHIPPING ORDER CLERK Work Phone: [facility] 11-10-2023 17:06-0400 Diastolic blood pressure 80 mm[Hg] Aileen Elizabethhof CONTROLS ENGINEER.SHIPPING ORDER CLERK Work Phone: [facility] 11-10-2023 17:06-0400 Heart rate 81 /min Aileen Elizabethhof CONTROLS ENGINEER.SHIPPING ORDER CLERK Work Phone: [facility] 11-10-2023 17:06-0400 Respiratory rate 16 /min Aileen Elizabethhof CONTROLS ENGINEER.SHIPPING ORDER CLERK Work Phone: [facility] 11-10-2023 17:06-0400 SaO2% (BldA) [Mass fraction] 96 % Aileen Quintanilla CONTROLS ENGINEER.SHIPPING ORDER CLERK Work Phone: [facility] 11-10-2023 17:06-0400 Systolic blood pressure 130 mm[Hg] Aileen Elizabethhof CONTROLS ENGINEER.SHIPPING ORDER CLERK Work Phone: [facility] 11-07-2023 09:57-0400 Body mass index (BMI) [Ratio] 37.62 kg/m2 Antonylyn Aberegg PA Work Phone: [facility] 11-07-2023 09:57-0400 Body temperature 97.9 [degF] Krislyn Aberegg PA Work Phone: [facility] 11-07-2023 09:57-0400 Body weight 90.3 kg Krislyn Aberegg PA Work Phone: [facility] 11-07-2023 09:57-0400 Diastolic blood pressure 72 mm[Hg] Krislyn Aberegg PA Work Phone: [facility] 11-07-2023 09:57-0400 Heart rate 80 /min Krislyn Aberegg PA Work Phone: [facility] 11-07-2023 09:57-0400 Respiratory rate 18 /min Krislyn Aberegg PA Work Phone: [facility] 11-07-2023 09:57-0400 SaO2% (BldA) [Mass fraction] 96 % Krislyn Aberegg PA Work Phone: [facility] 11-07-2023 09:57-0400 Systolic blood pressure 112 mm[Hg] Krislyn Aberegg PA Work Phone: [facility] 09-29-2023 15:49-0400 Body mass index (BMI) [Ratio] 37.79 kg/m2 Aileen Quintanilla APRN.SHIPPING ORDER CLERK Work Phone: [facility] 09-29-2023 15:49-0400 Body weight 90.72 kg Aileen Quintanilla CONTROLS ENGINEER.SHIPPING ORDER CLERK Work Phone: [facility] 09-29-2023 15:49-0400 Diastolic blood pressure 58 mm[Hg] Aileen Quintanilla CONTROLS ENGINEER.SHIPPING ORDER CLERK Work Phone: [facility] 09-29-2023 15:49-0400 Heart rate 71 /min Aileen Quitnanilla CONTROLS ENGINEER.SHIPPING ORDER CLERK Work Phone: [facility] 09-29-2023 15:49-0400 Respiratory rate 16 /min Aileen Elizabethhof CONTROLS ENGINEER.SHIPPING ORDER CLERK Work Phone: [facility] 09-29-2023 15:49-0400 SaO2% (BldA) [Mass fraction] 96 % Aileen Elizabethhof CONTROLS ENGINEER.SHIPPING ORDER CLERK Work Phone: [facility] 09-29-2023 15:49-0400 Systolic blood pressure 110 mm[Hg] Aileen Elizabethhof CONTROLS ENGINEER.SHIPPING ORDER CLERK Work Phone: [facility] 08-11-2023 09:37-0400 Body height 154.9 cm Verónica Cioce CONTROLS ENGINEER.SHIPPING ORDER CLERK Work Phone: [facility] 08-11-2023 09:37-0400 Body mass index (BMI) [Ratio] 36.96 kg/m2 Verónica Cioce CONTROLS ENGINEER.SHIPPING ORDER CLERK Work Phone: [facility] 08-11-2023 09:37-0400 Body temperature 98.6 [degF] Verónica Cioce CONTROLS ENGINEER.SHIPPING ORDER CLERK Work Phone: [facility] 08-11-2023 09:37-0400 Body weight 88.72 kg Verónica Cioce CONTROLS ENGINEER.SHIPPING ORDER CLERK Work Phone: [facility] 08-11-2023 09:37-0400 Diastolic blood pressure 70 mm[Hg] Verónica Cioce CONTROLS ENGINEER.SHIPPING ORDER CLERK Work Phone: [facility] 08-11-2023 09:37-0400 Heart rate 63 /min Verónica Cioce CONTROLS ENGINEER.SHIPPING ORDER CLERK Work Phone: [facility] 08-11-2023 09:37-0400 SaO2% (BldA) [Mass fraction] 95 % Verónica Cioce CONTROLS ENGINEER.SHIPPING ORDER CLERK Work Phone: [facility] 08-11-2023 09:37-0400 Systolic blood pressure 118 mm[Hg] Verónica Cioce CONTROLS ENGINEER.SHIPPING ORDER CLERK Work Phone: [facility] 06-10-2023 14:23-0400 Body weight 91.54 kg Aileen Tannhof CONTROLS ENGINEER.SHIPPING ORDER CLERK Work Phone: [facility] 06-10-2023 14:23-0400 Diastolic blood pressure 76 mm[Hg] Aileen Tannhof CONTROLS ENGINEER.SHIPPING ORDER CLERK Work Phone: [facility] 06-10-2023 14:23-0400 Heart rate 62 /min Aileen Tannhof CONTROLS ENGINEER.SHIPPING ORDER CLERK Work Phone: [facility] 06-10-2023 14:23-0400 Respiratory rate 20 /min Aileen Tannhof CONTROLS ENGINEER.SHIPPING ORDER CLERK Work Phone: [facility] 06-10-2023 14:23-0400 SaO2% (BldA) [Mass fraction] 95 % Aileen Tannhof CONTROLS ENGINEER.SHIPPING ORDER CLERK Work Phone: [facility] 06-10-2023 14:23-0400 Systolic blood pressure 140 mm[Hg] Aileen Tannhof CONTROLS ENGINEER.SHIPPING ORDER CLERK Work Phone: [facility] 05-12-2023 10:44-0500 Body height 154.9 cm Verónica Cioce CONTROLS ENGINEER.SHIPPING ORDER CLERK Work Phone: [facility] 05-12-2023 10:44-0500 Body temperature 97.59 [degF] Verónica Cioce CONTROLS ENGINEER.SHIPPING ORDER CLERK Work Phone: [facility] 05-12-2023 10:44-0500 Body weight 91.08 kg Verónica Cioce CONTROLS ENGINEER.SHIPPING ORDER CLERK Work Phone: [facility] 05-12-2023 10:44-0500 Diastolic blood pressure 82 mm[Hg] Verónica Cioce CONTROLS ENGINEER.SHIPPING ORDER CLERK Work Phone: [facility] 05-12-2023 10:44-0500 Heart rate 65 /min Verónica Cioce CONTROLS ENGINEER.SHIPPING ORDER CLERK Work Phone: [facility] 05-12-2023 10:44-0500 SaO2% (BldA) [Mass fraction] 98 % Verónica Cioce CONTROLS ENGINEER.SHIPPING ORDER CLERK Work Phone: [facility] 05-12-2023 10:44-0500 Systolic blood pressure 142 mm[Hg] Verónica Hallroderick CONTROLS ENGINEER.SHIPPING ORDER CLERK Work Phone: [facility] 04-26-2023 17:06-0500 Body temperature 97.5 [degF] Antwon Mckeon CONTROLS ENGINEER.SHIPPING ORDER CLERK Work Phone: [facility] 04-26-2023 17:06-0500 Body weight 91.35 kg Antwongunner Mckeon CONTROLS ENGINEER.SHIPPING ORDER CLERK Work Phone: [facility] 04-26-2023 17:06-0500 Diastolic blood pressure 62 mm[Hg] Antwongunner Mckeon CONTROLS ENGINEER.SHIPPING ORDER CLERK Work Phone: [facility] 04-26-2023 17:06-0500 Heart rate 72 /min Antwon Mckeon CONTROLS ENGINEER.SHIPPING ORDER CLERK Work Phone: [facility] 04-26-2023 17:06-0500 Respiratory rate 21 /min Antwon Mckeon CONTROLS ENGINEER.SHIPPING ORDER CLERK Work Phone: [facility] 04-26-2023 17:06-0500 SaO2% (BldA) [Mass fraction] 98 % Antwon Mckeon CONTROLS ENGINEER.SHIPPING ORDER CLERK Work Phone: [facility] 04-26-2023 17:06-0500 Systolic blood pressure 120 mm[Hg] Antwon Mckeon CONTROLS ENGINEER.SHIPPING ORDER CLERK Work Phone: [facility] 04-15-2023 13:07-0500 Body weight 93.44 kg Aileen Quintanilla CONTROLS ENGINEER.SHIPPING ORDER CLERK Work Phone: [facility] 04-15-2023 13:07-0500 Diastolic blood pressure 82 mm[Hg] Aileen Elizabethhof CONTROLS ENGINEER.SHIPPING ORDER CLERK Work Phone: [facility] 04-15-2023 13:07-0500 Heart rate 87 /min Aileen Franklinf CONTROLS ENGINEER.SHIPPING ORDER CLERK Work Phone: [facility] 04-15-2023 13:07-0500 Respiratory rate 16 /min Aileen Elizabethhof CONTROLS ENGINEER.SHIPPING ORDER CLERK Work Phone: [facility] 04-15-2023 13:07-0500 SaO2% (BldA) [Mass fraction] 95 % Aileen Tannhof CONTROLS ENGINEER.SHIPPING ORDER CLERK Work Phone: [facility] 04-15-2023 13:07-0500 Systolic blood pressure 130 mm[Hg] Aileen Tannhof CONTROLS ENGINEER.SHIPPING ORDER CLERK Work Phone: [facility] 01-20-2023 08:05-0500 Body temperature 97.11 [degF] Aishwarya Podlogar CONTROLS ENGINEER.SHIPPING ORDER CLERK Work Phone: [facility] 01-20-2023 08:05-0500 Body weight 92.08 kg Aishwarya Podlogar CONTROLS ENGINEER.SHIPPING ORDER CLERK Work Phone: [facility] 01-20-2023 08:05-0500 Diastolic blood pressure 80 mm[Hg] Aishwarya Podlogar CONTROLS ENGINEER.SHIPPING ORDER CLERK Work Phone: [facility] 01-20-2023 08:05-0500 Heart rate 68 /min Aishwarya Podlogar CONTROLS ENGINEER.SHIPPING ORDER CLERK Work Phone: [facility] 01-20-2023 08:05-0500 Respiratory rate 16 /min Aishwarya Podlogar CONTROLS ENGINEER.SHIPPING ORDER CLERK Work Phone: [facility] 01-20-2023 08:05-0500 SaO2% (BldA) [Mass fraction] 97 % Aishwarya Podlogar CONTROLS ENGINEER.SHIPPING ORDER CLERK Work Phone: [facility] 01-20-2023 08:05-0500 Systolic blood pressure 148 mm[Hg] Aishwarya Podlogar CONTROLS ENGINEER.SHIPPING ORDER CLERK Work Phone: [facility] 11-25-2022 11:28-0400 Body weight 90.72 kg Aileen Tannhof CONTROLS ENGINEER.SHIPPING ORDER CLERK Work Phone: [facility] 11-25-2022 11:28-0400 Diastolic blood pressure 80 mm[Hg] Aileen Tannhof CONTROLS ENGINEER.SHIPPING ORDER CLERK Work Phone: [facility] 11-25-2022 11:28-0400 Heart rate 72 /min Aileen Tannhof CONTROLS ENGINEER.SHIPPING ORDER CLERK Work Phone: [facility] 11-25-2022 11:28-0400 Respiratory rate 16 /min Aileen Elizabethmajo CONTROLS ENGINEER.SHIPPING ORDER CLERK Work Phone: [facility] 11-25-2022 11:28-0400 SaO2% (BldA) [Mass fraction] 96 % Aileen Quintanilla CONTROLS ENGINEER.SHIPPING ORDER CLERK Work Phone: [facility] 11-25-2022 11:28-0400 Systolic blood pressure 110 mm[Hg] Aileen Elizabethmajo CONTROLS ENGINEER.SHIPPING ORDER CLERK Work Phone: [facility] 10-21-2022 11:11-0400 Body height 162.6 cm Abelardo Meredithgeovannycatina DO Work Phone: [facility] 10-21-2022 11:11-0400 Body weight 92.85 kg Abelardo Meredithalfitano DO Work Phone: [facility] 10-21-2022 11:11-0400 Diastolic blood pressure 60 mm[Hg] Abelardo Whitakercatina DO Work Phone: [facility] 10-21-2022 11:11-0400 Heart rate 70 /min Abelardo Amalfiterwin DO Work Phone: [facility] 10-21-2022 11:11-0400 SaO2% (BldA) [Mass fraction] 98 % Abelardo Amalfiterwin DO Work Phone: [facility] 10-21-2022 11:11-0400 Systolic blood pressure 134 mm[Hg] Abelardo Nash DO Work Phone: [facility] 08-25-2022 11:08-0400 Body weight 92.08 kg Emily Wang MD Work Phone: [facility] 08-25-2022 11:08-0400 Diastolic blood pressure 84 mm[Hg] Emily Wang MD Work Phone: [facility] 08-25-2022 11:08-0400 Heart rate 70 /min Emily Wang MD Work Phone: [facility] 08-25-2022 11:08-0400 Respiratory rate 16 /min Emily Wang MD Work Phone: [facility] 08-25-2022 11:08-0400 Systolic blood pressure 132 mm[Hg] Emily Wang MD Work Phone: [facility] 06-19-2022 09:55-0400 Diastolic blood pressure 80 mm[Hg] Aileen Quintanilla CONTROLS ENGINEER.SHIPPING ORDER CLERK Work Phone: [facility] 06-19-2022 09:55-0400 Systolic blood pressure 150 mm[Hg] Aileen Quintanilla CONTROLS ENGINEER.SHIPPING ORDER CLERK Work Phone: [facility] 05-12-2022 11:22-0500 Body weight 93.58 kg Emily Wang MD Work Phone: [facility] 05-12-2022 11:22-0500 Diastolic blood pressure 88 mm[Hg] Emily Wang MD Work Phone: [facility] 05-12-2022 11:22-0500 Heart rate 78 /min Emily Wang MD Work Phone: [facility] 05-12-2022 11:22-0500 Respiratory rate 16 /min Emily Wang MD Work Phone: [facility] 05-12-2022 11:22-0500 Systolic blood pressure 140 mm[Hg] Emily Wang MD Work Phone: [facility] 04-14-2022 10:32-0500 Body height 157.5 cm Abelardo Nash DO Work Phone: [facility] 04-14-2022 10:32-0500 Body weight 93.08 kg Abelardo Nash DO Work Phone: [facility] 04-14-2022 10:32-0500 Diastolic blood pressure 62 mm[Hg] Abelardo Nash DO Work Phone: [facility] 04-14-2022 10:32-0500 Heart rate 56 /min Abelardo Nash DO Work Phone: [facility] 04-14-2022 10:32-0500 SaO2% (BldA) [Mass fraction] 96 % Abelardo Harpererica DO Work Phone: [facility] 04-14-2022 10:32-0500 Systolic blood pressure 132 mm[Hg] Abelardo Whitakerrebecaerwin DO Work Phone: [facility] 03-10-2022 08:44-0500 Body weight 92.08 kg Aileen Tannhof CONTROLS ENGINEER.SHIPPING ORDER CLERK Work Phone: [facility] 03-10-2022 08:44-0500 Diastolic blood pressure 82 mm[Hg] Aileen Tannhof CONTROLS ENGINEER.SHIPPING ORDER CLERK Work Phone: [facility] 03-10-2022 08:44-0500 Heart rate 57 /min Aileen Tannhof CONTROLS ENGINEER.SHIPPING ORDER CLERK Work Phone: [facility] 03-10-2022 08:44-0500 Respiratory rate 16 /min Aileen Tannhof CONTROLS ENGINEER.SHIPPING ORDER CLERK Work Phone: [facility] 03-10-2022 08:44-0500 SaO2% (BldA) [Mass fraction] 99 % Aileen Tannhof CONTROLS ENGINEER.SHIPPING ORDER CLERK Work Phone: [facility] 03-10-2022 08:44-0500 Systolic blood pressure 132 mm[Hg] Aileen Tannhof CONTROLS ENGINEER.SHIPPING ORDER CLERK Work Phone: [facility] 02-12-2022 11:34-0500 Body weight 90.9 kg Emily Wang MD Work Phone: [facility] 02-12-2022 11:34-0500 Diastolic blood pressure 70 mm[Hg] Emily Wang MD Work Phone: [facility] 02-12-2022 11:34-0500 Heart rate 68 /min Emily Wang MD Work Phone: [facility] 02-12-2022 11:34-0500 Respiratory rate 16 /min Emily Wang MD Work Phone: [facility] 02-12-2022 11:34-0500 Systolic blood pressure 124 mm[Hg] Emily Wang MD Work Phone: [facility] 02-11-2022 11:00-0500 Heart rate 60 /min Chirag Fernandez MD Work Phone: [facility] 02-11-2022 11:00-0500 SaO2% (BldA) [Mass fraction] 94 % Chirag Fernandez MD Work Phone: [facility] 02-11-2022 09:33-0500 Body temperature 97.2 [degF] Chirag Fernandez MD Work Phone: [facility] 02-11-2022 09:33-0500 Diastolic blood pressure 71 mm[Hg] Chirag Fernandez MD Work Phone: [facility] 02-11-2022 09:33-0500 Systolic blood pressure 172 mm[Hg] Chirag Fernandez MD Work Phone: [facility] 01-27-2022 13:18-0500 Body height 157.5 cm Anamika Ocasio CONTROLS ENGINEER.SHIPPING ORDER CLERK Work Phone: [facility] 01-27-2022 13:18-0500 Body weight 92.53 kg Anamika Ocasio CONTROLS ENGINEER.SHIPPING ORDER CLERK Work Phone: [facility] 01-27-2022 13:18-0500 Diastolic blood pressure 62 mm[Hg] Anamika Ocasio CONTROLS ENGINEER.SHIPPING ORDER CLERK Work Phone: [facility] 01-27-2022 13:18-0500 Heart rate 63 /min Anamika Ocasio CONTROLS ENGINEER.SHIPPING ORDER CLERK Work Phone: [facility] 01-27-2022 13:18-0500 SaO2% (BldA) [Mass fraction] 97 % Anamika Ocasio CONTROLS ENGINEER.SHIPPING ORDER CLERK Work Phone: [facility] 01-27-2022 13:18-0500 Systolic blood pressure 128 mm[Hg] Anamika Ocasio CONTROLS ENGINEER.SHIPPING ORDER CLERK Work Phone: [facility] 12-25-2021 09:08-0400 Body height 157.5 cm Abelardo Nash DO Work Phone: [facility] 12-25-2021 09:08-0400 Body weight 91.63 kg Abelardo Whitakerfiterwin DO Work Phone: [facility] 12-25-2021 09:08-0400 Diastolic blood pressure 80 mm[Hg] Abelardo Whitakerfiterwin DO Work Phone: [facility] 12-25-2021 09:08-0400 Heart rate 63 /min Abelardo Nash DO Work Phone: [facility] 12-25-2021 09:08-0400 SaO2% (BldA) [Mass fraction] 100 % Abelardo Nash DO Work Phone: [facility] 12-25-2021 09:08-0400 Systolic blood pressure 156 mm[Hg] Abelardo Nash DO Work Phone: [facility] 10-30-2021 11:09-0400 Body weight 90.77 kg Emily Wang MD Work Phone: [facility] 10-30-2021 11:09-0400 Diastolic blood pressure 80 mm[Hg] Emily Wang MD Work Phone: [facility] 10-30-2021 11:09-0400 Heart rate 78 /min Emily Wang MD Work Phone: [facility] 10-30-2021 11:09-0400 Respiratory rate 16 /min Emily Wang MD Work Phone: [facility] 10-30-2021 11:09-0400 Systolic blood pressure 140 mm[Hg] Emily Wang MD Work Phone: [facility] 08-21-2021 15:00-0400 Body weight 90.72 kg Aileen Quintanilla APRN.SHIPPING ORDER CLERK Work Phone: [facility] 08-21-2021 15:00-0400 Diastolic blood pressure 66 mm[Hg] Aileen Quintanilla APRN.SHIPPING ORDER CLERK Work Phone: [facility] 08-21-2021 15:00-0400 Heart rate 70 /min Aileen Elizabethhof CONTROLS ENGINEER.SHIPPING ORDER CLERK Work Phone: [facility] 08-21-2021 15:00-0400 Respiratory rate 16 /min Aileen Franklinf CONTROLS ENGINEER.SHIPPING ORDER CLERK Work Phone: [facility] 08-21-2021 15:00-0400 Systolic blood pressure 124 mm[Hg] Aileen Quintanilla CONTROLS ENGINEER.SHIPPING ORDER CLERK Work Phone: [facility] 07-07-2021 11:02-0400 Body height 157.[address] [facility] 07-07-2021 [id number] Body weight 93.[address] [facility] Encounters Encounter Date Encounter Type Care Provider Facility Start: 09-07-2024 End: 09-11-2024 Refill Emily Wang MD Work Phone: [facility] Comment on above: Refill Request Start: 09-06-2024 End: 09-06-2024 Patient encounter procedure Verónica C Cioce CONTROLS ENGINEER.SHIPPING ORDER CLERK Work Phone: Endocrinology Comment on above: Controlled type 2 di abetes mellitus without complication, without long-term current use of insulin (HCC) (Primary Dx) Start: 09-06-2024 End: 09-06-2024 ambulatory VERÓNICA C CIOCE Facility:[facility] Start: 08-31-2024 End: 09-01-2024 Telephone encounter Emily Wang MD Work Phone: [facility] Comment on above: Patient Question Start: 08-29-2024 End: 08-30-2024 Refill Verónica C Cioce CONTROLS ENGINEER.SHIPPING ORDER CLERK Work Phone: Endocrinology Comment on above: Refill Request Start: 08-07-2024 End: 08-07-2024 Refill Verónica C Cioce CONTROLS ENGINEER.SHIPPING ORDER CLERK Work Phone: Endocrinology Comment on above: Refill Request Start: 07-07-2024 End: 07-07-2024 Telephone encounter Hawa Padron MD Work Phone: Cardiology Comment on above: Medication Problem Start: 07-06-2024 End: 07-06-2024 Office outpatient visit 15 minutes Emily Wang MD Work Phone: [facility] [place] Comment on above: Herpes zoster withou t complication (Primary Dx); Itching Start: 07-06-2024 ambulatory EMILY WANG Facil ity:[facility] Start: 07-05-2024 End: 07-05-2024 Telephone encounter Emily Wang MD Work Phone: [facility] [place] Comment on above: itching all over Start: 07-03-2024 End: 07-03-2024 Telephone encounter Emily Wang MD Work Phone: [facility] [place] Comment on above: Patient Question Start: 06-26-2024 End: 06-26-2024 ambulatory CAMILA A SUPPAN Facility:[facility] Start: 06-26-2024 End: 06-26-2024 Office outpatient visit 15 minutes Camila Cabrera CONTROLS ENGINEER.SHIPPING ORDER CLERK Work Phone: [facility] [place] Comment on above: Herpes zoster withou t complication (Primary Dx); Sciatica, right side Start: 06-13-2024 End: 07-14-2024 ambulatory Emily Wang MD Work Phone: [facility] [place] Start: 06-12-2024 End: 06-12-2024 ambulatory EMILY WANG Facility:[facility] Start: 06-12-2024 End: 06-12-2024 Office outpatient visit 25 minutes Emily Wang MD Work Phone: [facility] [place] Comment on above: Diabetes mellitus, n on-insulin dependent (NIDDM or type II) (HCC) (Primary Dx); Anxiety; Sciatica, right side; Moderate episode of recurrent major depressive disorder (HCC); Hypertension, essential; Obesity, Class II, BMI 35-39.9; Myalgia; Dry mouth Start: 06-12-2024 End: 06-12-2024 Telephone encounter Emily Wang MD Work Phone: [facility] [place] Comment on above: Medication request; body aches Start: 06-09-2024 End: 06-12-2024 Follow-up encounter Hawa Padron MD Work Phone: Cardiology Comment on above: Results Start: 06-08-2024 End: 06-08-2024 ambulatory AILEEN QUINTANILLA Facility:[facility] Start: 05-18-2024 End: 05-18-2024 Refill Emily Wang MD Work Phone: [facility] [place] Comment on above: Refill Request Start: 05-02-2024 End: 05-02-2024 Telephone encounter Keegan Jain MD Work Phone: Endocrinology Comment on above: Orders (CATIE Robertson) Start: 05-01-2024 End: 05-01-2024 Telephone encounter Hawa Padron MD Work Phone: Cardiology Comment on above: Insurance Authorizat ion ([facility] Approval for Repatha, /04/27/24 - 04/27/25) Start: 04-25-2024 End: 04-27-2024 Telephone encounter Lilliana Brooks RN Work Phone: [facility] Start: 04-24-2024 End: 04-24-2024 ambulatory HAWA JUSTYN Facility:[facility] Start: 04-24-2024 End: 04-24-2024 Patient encounter procedure Hawa Padron MD Work Phone: Cardiology Comment on above: Ascending aorta dila tation (HCC) (Primary Dx); Coronary artery disease due to lipid rich plaque Start: 04-11-2024 End: 04-11-2024 Telephone encounter Emily Wang MD Work Phone: [facility] [place] Comment on above: Patient Question Start: 03-20-2024 End: 03-23-2024 Refill Emily Wang MD Work Phone: [facility] [place] Comment on above: Refill Request Start: 03-09-2024 End: 03-09-2024 Refill Emily Wang MD Work Phone: [facility] [place] Comment on above: Refill Request Start: 02-16-2024 End: 02-16-2024 ambulatory AILEEN QUINTANILLA Facility:[facility] Start: 02-16-2024 Encounter for ten l adult medical examination without abnormal findings AILEEN QUINTANILLA [facility] Start: 02-15-2024 End: 02-15-2024 ambulatory HAWA PADRON Facility:[facility] Start: 02-14-2024 End: 07-05-2024 Refill Emily Wang MD Work Phone: [facility] [place] Comment on above: Refill Request Start: 01-21-2024 End: 01-24-2024 Refill Emily Wang MD Work Phone: [facility] [place] Comment on above: Refill Request Start: 12-30-2023 ambulatory UNKNOWN PROVIDER Facili ty:[facility] Start: 12-30-2023 End: 12-30-2023 Subsequent hospital visit by physician [facility] Work Phone: Cardiology Lab Comment on above: Coronary artery dise ase due to lipid rich plaque [I25.10, I25.83] Start: 12-29-2023 End: 12-29-2023 Refill Emily Wang MD Work Phone: [facility] [place] Comment on above: Refill Request Start: 12-23-2023 ambulatory UNKNOWN PROVIDER Facili ty:[facility] Start: 12-23-2023 End: 12-23-2023 Subsequent hospital visit by physician [facility] Work Phone: Molecular Imaging Comment on above: Coronary artery dise ase due to lipid rich plaque [I25.10, I25.83] Start: 12-22-2023 End: 12-22-2023 Telephone encounter Ирина Olmstead RN Cardiology Lab Comment on above: Reminder Call Start: 12-10-2023 End: 12-10-2023 ambulatory Smara Dickens APRN.SHIPPING ORDER CLERK Work Phone: Psychiatry Comment on above: NO SHOW (Primary Dx) Start: 12-10-2023 End: 12-10-2023 Telemedicine consultation with patient Samra Dickens CONTROLS ENGINEER.SHIPPING ORDER CLERK Work Phone: Psychiatry Start: 12-09-2023 End: 12-09-2023 ambulatory HAWA PADRON Facility:[facility] Start: 12-09-2023 End: 12-09-2023 Patient encounter procedure Hawa Padron MD Work Phone: Cardiology Comment on above: Coronary artery dise ase due to lipid rich plaque (Primary Dx); Mixed hyperlipidemia; Hypertriglyceridemia; SOB (shortness of breath) Start: 11-10-2023 End: 11-10-2023 ambulatory AILEEN QUINTANILLA Facility:[facility] Start: 11-10-2023 End: 11-10-2023 Patient encounter procedure Aileen Quintanilla CONTROLS ENGINEER.SHIPPING ORDER CLERK Work Phone: [facility] [place] Comment on above: Vaginal yeast infect ion (Primary Dx); Vaginal bleeding Start: 11-09-2023 End: 11-09-2023 Telephone encounter Emily Wang MD Work Phone: [facility] [place] Comment on above: Results Start: 11-08-2023 End: 11-08-2023 ambulatory Janeth Jennings RN NURSE VICE PRESIDENT OF NEWS Comment on above: Vaginal Problem Start: 11-08-2023 End: 11-09-2023 Telephone encounter Isaiah HADDAD Work Phone: [facility] Comment on above: Results Start: 11-07-2023 End: 11-07-2023 ambulatory EMILY WANG Facility:[facility] Start: 11-07-2023 End: 11-07-2023 Patient encounter procedure Isaiah Rodriguez PA Work Phone: [facility] Comment on above: Vaginal discharge (P rimary Dx); Dysuria Start: 11-01-2023 End: 11-01-2023 ambulatory Emily Wnag MD Work Phone: [facility] [place] Comment on above: Vaginal Problem Start: 10-20-2023 Refill Emily covington MD Work Phone: [facility] [place] Comment on above: Refill Request Start: 10-07-2023 End: 10-07-2023 Emergency department patient visit EMILY WANG Facility:[facility] Start: 10-07-2023 ambulatory Emily covington MD Work Phone: [facility] [place] Comment on above: Chest Pain Start: 10-04-2023 Telephone encounter Samra ferreira CONTROLS ENGINEER.SHIPPING ORDER CLERK Work Phone: Psychiatry Comment on above: New pt appt Start: 09-29-2023 End: 09-29-2023 Patient encounter procedure Aileen Quintanilla CONTROLS ENGINEER.SHIPPING ORDER CLERK Work Phone: [facility] [place] Comment on above: Diabetes mellitus, n on-insulin dependent (NIDDM or type II) (HCC) (Primary Dx); Anxiety with depression; Hyperlipidemia, unspecified hyperlipidemia type; High triglycerides Start: 09-29-2023 End: 09-29-2023 ambulatory AILEEN QUINTANILLA Facility:[facility] Start: 09-27-2023 End: 09-27-2023 ambulatory VERÓNICA HALLE Facility:[facility] Start: 09-15-2023 Refill Emily covington MD Work Phone: [facility] [place] Comment on above: Refill Request Start: 08-11-2023 End: 08-11-2023 Patient encounter procedure Verónica Luis CONTROLS ENGINEER.SHIPPING ORDER CLERK Work Phone: Endocrinology Comment on above: Poorly controlled ty pe 2 diabetes mellitus (HCC) (Primary Dx); Poorly controlled diabetes mellitus (HCC) Start: 07-14-2023 ambulatory Emily covington MD Work Phone: [facility] [place] Start: 06-17-2023 Refill Emily covington MD Work Phone: [facility] [place] Comment on above: Refill Request Start: 06-10-2023 End: 06-10-2023 Patient encounter procedure Aileen Quintanilla CONTROLS ENGINEER.SHIPPING ORDER CLERK Work Phone: [facility] [place] Comment on above: Viral gastroenteriti s (Primary Dx); Nausea; Muscle strain; Poorly controlled diabetes mellitus (HCC); Hypertension, essential; Pure hypercholesterolemia; Anxiety with depression Start: 05-31-2023 Telephone encounter Aileen downs CONTROLS ENGINEER.SHIPPING ORDER CLERK Work Phone: [facility] [place] Comment on above: Lab Orders Start: 05-24-2023 Telephone encounter Aileen bolesof CONTROLS ENGINEER.SHIPPING ORDER CLERK Work Phone: [facility] [place] Comment on above: Patient Question Start: 05-18-2023 End: 05-18-2023 Patient encounter procedure Samra Dickens CONTROLS ENGINEER.SHIPPING ORDER CLERK Work Phone: Psychiatry Comment on above: NO SHOW (Primary Dx) Start: 05-17-2023 Telephone encounter Verónica castañeda CONTROLS ENGINEER.SHIPPING ORDER CLERK Work Phone: Pulmonary Medicine Comment on above: Medication Problem Start: 05-12-2023 Telephone encounter Verónica castañeda CONTROLS ENGINEER.SHIPPING ORDER CLERK Work Phone: Endocrinology Comment on above: Prior Authorization ([place]) Medication Problem ( Over 400.00) Start: 05-12-2023 End: 05-12-2023 Nursing evaluation of patient and report Chirag Chavez RN Work Phone: Endocrinology Comment on above: Diabetes mellitus, n on-insulin dependent (NIDDM or type II) (HCC) (Primary Dx) Start: 05-12-2023 End: 05-12-2023 Patient encounter procedure Verónica Luis CONTROLS ENGINEER.SHIPPING ORDER CLERK Work Phone: Endocrinology Comment on above: Poorly controlled ty pe 2 diabetes mellitus (HCC) (Primary Dx) Start: 05-07-2023 Telephone encounter Emily hylton MD Work Phone: [facility] [place] Comment on above: Patient Update Start: 04-27-2023 ambulatory Roxanne Benjamin RN NURSE VICE PRESIDENT OF NEWS Comment on above: Information Start: 04-26-2023 End: 04-26-2023 Patient encounter procedure Antwon Mckeon CONTROLS ENGINEER.SHIPPING ORDER CLERK Work Phone: [facility] Comment on above: Viral syndrome (Prim chi Dx) Start: 04-26-2023 Telephone encounter Emily hylton MD Work Phone: [facility] [place] Comment on above: Patient Update Start: 04-22-2023 Refill Emily covington MD Work Phone: [facility] [place] Comment on above: Refill Request Start: 04-21-2023 Telephone encounter End[facility] Comment on above: Patient Question; 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?) Start: 04-19-2023 Telephone encounter Emily hylton MD Work Phone: [facility] [place] Comment on above: Blood sugar readings Refill Request Start: 04-16-2023 Telephone encounter Emily hylton MD Work Phone: [facility] [place] Comment on above: Medication Question Appointment (Dietici an ) Start: 04-15-2023 End: 04-15-2023 Patient encounter procedure Aileen Quintanilla APRN.SHIPPING ORDER CLERK Work Phone: [facility] [place] Comment on above: Hospital discharge f ollow-up (Primary Dx); Poorly controlled diabetes mellitus (HCC); Anxiety with depression Start: 04-13-2023 Telephone encounter Emily hylton MD Work Phone: [facility] [place] Comment on above: Patient Question Start: 04-12-2023 End: 04-12-2023 Emergency department patient visit EMILY WANG Facility:[facility] Start: 01-29-2023 Refill Emily covington MD Work Phone: [facility] [place] Comment on above: Refill Request Start: 01-22-2023 Telephone encounter Aishwarya mathews APRN.SHIPPING ORDER CLERK Work Phone: [facility] [place] Start: 01-20-2023 End: 01-20-2023 Patient encounter procedure Aishwarya Bailey APRN.SHIPPING ORDER CLERK Work Phone: [facility] [place] Comment on above: Bad odor of urine (P rimary Dx); Urinary urgency; Vaginal discharge Start: 12-03-2022 Telephone encounter Aileen downs CONTROLS ENGINEER.SHIPPING ORDER CLERK Work Phone: [facility] [place] Comment on above: Results (Labs ); Ord ers Start: 11-27-2022 Refill Bahman RAPHAEL RN.SHIPPING ORDER CLERK Work Phone: [facility] [place] Comment on above: Refill Request Start: 11-25-2022 Telephone encounter Antwon burris APRN.SHIPPING ORDER CLERK Work Phone: [facility] Comment on above: Results Start: 11-25-2022 End: 11-25-2022 Patient encounter procedure Aileen Quintanilla APRN.SHIPPING ORDER CLERK Work Phone: [facility] [place] Comment on above: Dysuria (Primary Dx) ; Uncontrolled type 2 diabetes mellitus with hyperglycemia (HCC); Hypertension, essential; Anxiety; Moderate episode of recurrent major depressive disorder (HCC); GERD without esophagitis Start: 11-24-2022 Telephone encounter Karen perez APRN.SHIPPING ORDER CLERK Work Phone: [facility] Comment on above: Results Start: 10-21-2022 Telephone encounter Bahman wilson APRN.SHIPPING ORDER CLERK Work Phone: Family [facility] [place] Comment on above: Patient Update Start: 10-21-2022 End: 10-21-2022 Patient encounter procedure Abelardo Wilson Amgeovannycatina Work Phone: Cardiology Comment on above: Chest pain, unspecif ied type (Primary Dx); Atherosclerosis of soboba coronary artery of soboba heart without angina pectoris; Abnormal stress test; Hypertension, essential; Mixed hyperlipidemia; Obstructive sleep apnea; Dyspnea on exertion; Diabetes mellitus, non-insulin dependent (NIDDM or type II) (HCC) Start: 10-06-2022 Telephone encounter Bahman wilson APRN.SHIPPING ORDER CLERK Work Phone: Family [facility] [place] Comment on above: Results Start: 09-27-2022 End: 09-27-2022 Emergency department patient visit EMILY Casey [facility] Facility:[facility] Start: 09-18-2022 Telephone encounter Aileen downs APRN.SHIPPING ORDER CLERK Work Phone: Family [facility] [place] Comment on above: Results (RUQ US) Start: 09-18-2022 End: 09-18-2022 Subsequent hospital visit by physician [facility] Work Phone: Radiology Comment on above: Abdominal pain, unsp ecified abdominal location [R10.9] Start: 09-17-2022 Telephone encounter Aileenene Yarbrough himanshu CONTROLS ENGINEER.SHIPPING ORDER CLERK Work Phone: [facility] [place] Comment on above: Results (Labs ) Start: 08-25-2022 End: 08-25-2022 Patient encounter procedure Emily Wang MD Work Phone: [facility] [place] Comment on above: Uncontrolled type 2 diabetes mellitus with hyperglycemia (HCC) (Primary Dx); Anxiety; Moderate episode of recurrent major depressive disorder (HCC); Hypertension, essential; Pure hypercholesterolemia; Hypomagnesemia; GERD without esophagitis; Nausea; Vertigo; Ischemic stroke (HCC); Screening for colon cancer Start: 06-25-2022 Refill Emily covington MD Work Phone: [facility] [place] Comment on above: Refill Request Start: 06-19-2022 End: 06-19-2022 Patient encounter procedure Aileen Quintanilla CONTROLS ENGINEER.SHIPPING ORDER CLERK Work Phone: [facility] [place] Comment on above: Moderate episode of recurrent major depressive disorder (HCC) (Primary Dx); Anxiety Start: 05-19-2022 Telephone encounter Bahman wilson APRN.SHIPPING ORDER CLERK Work Phone: [facility] [place] Comment on above: Results Start: 05-13-2022 Telephone encounter Emily hylton MD Work Phone: [facility] [place] Comment on above: work excuse/medicati on request Start: 05-12-2022 End: 05-12-2022 Patient encounter procedure Emily Wang MD Work Phone: [facility] [place] Comment on above: Diabetes mellitus, n on-insulin dependent (NIDDM or type II) (HCC) (Primary Dx); Hypertension, essential; Anxiety; Moderate episode of recurrent major depressive disorder (HCC); Atherosclerosis of soboba coronary artery of soboba heart without angina pectoris; URI, acute Start: 04-14-2022 End: 04-14-2022 Patient encounter procedure Abelardo Nash DO Work Phone: Cardiology Comment on above: Chest pain, unspecif ied type (Primary Dx); Atherosclerosis of soboba coronary artery of soboba heart without angina pectoris; Abnormal stress test; Hypertension, essential; Mixed hyperlipidemia; Obstructive sleep apnea; Dyspnea on exertion; Diabetes mellitus, non-insulin dependent (NIDDM or type II) (HCC) Start: 03-10-2022 End: 03-10-2022 Patient encounter procedure Aileen Quintanilla APRN.SHIPPING ORDER CLERK Work Phone: [facility] Comment on above: Moderate episode of recurrent major depressive disorder (HCC) (Primary Dx); Anxiety Start: 03-08-2022 ambulatory Aileen al RN NURSE VICE PRESIDENT OF NEWS Comment on above: Depression Start: 02-26-2022 Telephone encounter Emily hylton MD Work Phone: [facility] Comment on above: medication advice Start: 02-12-2022 End: 02-12-2022 Patient encounter procedure Emily Wang MD Work Phone: [facility] Comment on above: Anxiety (Primary Dx) ; Moderate episode of recurrent major depressive disorder (HCC); Controlled type 2 diabetes mellitus without complication, without long-term current use of insulin (HCC); Hypertension, essential; Pure hypercholesterolemia; Hypomagnesemia; Vertigo; Right foot injury, sequela Start: 02-11-2022 ambulatory Aileen al RN NURSE VICE PRESIDENT OF NEWS Comment on above: Information Start: 02-11-2022 End: 02-11-2022 Subsequent hospital visit by physician Chirag Fernandez MD Work Phone: [employer] Comment on above: Abnormal stress test [R94.39] Start: 01-27-2022 ambulatory Anamika Mancilla APRN.SHIPPING ORDER CLERK Work Phone: Cardiology Comment on above: heart cath instructi ons Start: 01-27-2022 E-mail encounter fro m caregiver Anamika Ocasio APRN.SHIPPING ORDER CLERK Work Phone: [facility] Start: 01-27-2022 End: 01-27-2022 Patient encounter procedure Anamika Ocasio APRN.SHIPPING ORDER CLERK Work Phone: Cardiology Comment on above: Atherosclerosis of n ative coronary artery of soboba heart without angina pectoris (Primary Dx); Abnormal stress test; Chest pain, unspecified type; Hypertension, essential; Mixed hyperlipidemia; Obstructive sleep apnea; Dyspnea on exertion Start: 01-26-2022 Telephone encounter Card Nurse [facility] Cardiology Comment on above: Returning Patient's Call; Results Start: 01-23-2022 End: 01-23-2022 Subsequent hospital visit by physician Mfi Sanchez [facility] Work Phone: Molecular Imaging Comment on above: Chest pain, unspecif ied type [R07.9] Start: 01-22-2022 Telephone encounter Ирина brown RN Cardiology Lab Comment on above: Reminder Call Start: 01-16-2022 Telephone encounter Abelardo Nash DO Work Phone: Cardiology Comment on above: Symptoms Start: 12-25-2021 End: 12-25-2021 Patient encounter procedure Abelardo Nash DO Work Phone: Cardiology Comment on above: Chest pain, unspecif ied type (Primary Dx); Atherosclerosis of soboba coronary artery of soboba heart without angina pectoris; Pure hypercholesterolemia; Hypertension, essential; Obstructive sleep apnea; Shortness of breath; Diabetes mellitus, non-insulin dependent (NIDDM or type II) (HCC) Start: 11-24-2021 Refill Emily covington MD Work Phone: [facility] Comment on above: Refill Request Start: 10-30-2021 End: 10-30-2021 Patient encounter procedure Emily Wang MD Work Phone: [facility] Comment on above: Anxiety (Primary Dx) ; Vertigo; Moderate episode of recurrent major depressive disorder (HCC); Diabetes mellitus, non-insulin dependent (NIDDM or type II) (HCC); Hypomagnesemia; Pure hypercholesterolemia; Hypertension, essential; Panic attack Start: 09-03-2021 ambulatory Emily covington MD Work Phone: [facility] [place] Start: 08-21-2021 End: 08-21-2021 Subsequent hospital visit by physician Donal [facility] [place] Work Phone: Radiology Comment on above: Acute pain of left s houlder [M25.512] Start: 08-21-2021 End: 08-21-2021 Patient encounter procedure Aileen Quintanilla APRN.SHIPPING ORDER CLERK Work Phone: [facility] Comment on above: Acute pain of left s elmer (Primary Dx) Start: 07-07-2021 End: 07-07-[address] Nutrition Therapy Comment on above: Patient Education; A ssessment Start: 07-02-2021 End: 07-02-2021 Nursing evaluation of patient and report Chirag Chavez RN Work Phone: Endocrinology Comment on above: Diabetes mellitus, n on-insulin dependent (NIDDM or type II) (HCC) (Primary Dx) Start: 07-02-2021 End: 07-02-2021 Patient encounter procedure Winston Lopez [facility] Work Phone: [facility] Comment on above: Diabetes mellitus, n on-insulin dependent (NIDDM or type II) (HCC) (Primary Dx); Medication management Start: 06-09-2021 Telephone encounter Emily hylton MD Work Phone: [facility] Comment on above: Shingrix Start: 03-19-2021 End: 03-20-2021 ambulatory Nargis [facility] Facility:[facility] Start: 03-18-2021 ambulatory Emily Wang Facilit y:[facility] Start: 02-27-2021 End: 02-27-2021 Subsequent hospital visit by physician Xr [facility] Work Phone: Radiology Comment on above: Cough [R05.9] Start: 08-12-2020 End: 08-12-2020 Subsequent hospital visit by physician Xr [facility] Work Phone: Radiology Comment on above: Acute pain of right shoulder [M25.511] Start: 10-18-2017 [facility] Start: 02-15-2017 End: 02-15-2017 Ambulatory [facility] Facility:[facility] Start: 07-27-2007 End: 02-05-2017 Patient encounter status Aileen Quintanilla APRN.SHIPPING ORDER CLERK Work Phone: [facility] Work Phone: Procedures Date Procedure Procedure Detail Performing Clinician Start: 09-06-2024 Hemoglobin A1c/Hemoglobin.total in Blood Verónica C Cioce CONTROLS ENGINEER.SHIPPING ORDER CLERK Work Phone: Start: 12-30-2023 Echo tthrc r-t 2d w/wom-mode compl spec&colr d Hawa Padron MD Work Phone: Start: 12-23-2023 Myocardial spect mul tiple studies Hawa Padron MD Work Phone: Start: 11-07-2023 Urnls dip stick/tabl et rgnt auto w/o microscopy Isaiah HADDAD Work Phone: Start: 08-11-2023 Hemoglobin A1c/Hemoglobin.total in Blood Verónica C Cioce CONTROLS ENGINEER.SHIPPING ORDER CLERK Work Phone: Start: 05-12-2023 Hemoglobin A1c/Hemoglobin.total in Blood Verónica C Cioce CONTROLS ENGINEER.SHIPPING ORDER CLERK Work Phone: Start: 01-20-2023 Urnls dip stick/tabl et rgnt auto w/o microscopy Aishwarya Bailey CONTROLS ENGINEER.SHIPPING ORDER CLERK Work Phone: Start: 09-18-2022 Us abdominal real ti me w/image limited Aileen Quintanilla CONTROLS ENGINEER.SHIPPING ORDER CLERK Work Phone: Start: 04-14-2022 Ecg routine ecg w/le ast 12 lds i&r only [facility] Provider Start: 01-23-2022 Myocardial spect mul tiple studies Abelardo aNsh DO Work Phone: Start: 08-21-2021 Radex shoulder compl ete minimum 2 views Aileen Quintanilla CONTROLS ENGINEER.SHIPPING ORDER CLERK Work Phone: Start: 02-27-2021 Radiologic exam ches t 2 views Pushpa Ramsay CONTROLS ENGINEER.SHIPPING ORDER CLERK Work Phone: Start: 08-12-2020 Radex shoulder compl ete minimum 2 views Bobbi Grace PA-C Work Phone: Start: 04-15-2017 Mammography Emily nails MD Work Phone: Start: 07-06-2016 Colonoscopy Emily nails MD Work Phone: Plan of Treatment Date Care Activity Detail Author Start: 07-06-2025 Annual PCP Team Chronic Disease Visit Annual PCP Team Chronic Disease Visit [facility] Start: 07-06-2025 BP Controlled (<130/80) BP Controlled (<130/80) [facility] Start: 06-26-2025 Annual PCP Team Chronic Disease Visit Annual PCP Team Chronic Disease Visit [facility] Start: 06-26-2025 BP Controlled (<130/80) BP Controlled (<130/80) [facility] Start: 06-12-2025 Annual PCP Team Chronic Disease Visit Annual PCP Team Chronic Disease Visit [facility] Start: 06-12-2025 BP Controlled (<130/80) BP Controlled (<130/80) [facility] Start: 06-08-2025 Hepatitis B surface antibody level LDL Cholesterol [facility] Start: 02-15-2025 Annual PCP Team Chronic Disease Visit Annual PCP Team Chronic Disease Visit [facility] Start: 02-15-2025 BP Controlled (<130/80) BP Controlled (<130/80) [facility] Start: 02-14-2025 Hepatitis B surface antibody level LDL Cholesterol [facility] Start: 01-03-2025 End: 04-24-2025 Echocardiography ECHO Cardiology Routine Ascending aorta dilatation (HCC) Expected: 01/03/2025, Expires: 04/24/2025 [facility] Work Phone: Comment on above: Expected: 01/03/2025, Expires: Start: 12-08-2024 BP Controlled (<130/80) BP Controlled (<130/80) [facility] Start: 12-07-2024 Hemoglobin A1c measurement HbA1C [facility] Start: 11-09-2024 Annual PCP Team Chronic Disease Visit Annual PCP Team Chronic Disease Visit [facility] Start: 11-06-2024 BP Controlled (<130/80) BP Controlled (<130/80) [facility] Start: 09-01-2025 Influenza vaccination Influenza Vaccine (#1) [facility] Start: 10-11-2024 End: 10-11-2024 Patient encounter procedure 10/11/2024 9:45 AM EDT Office Visit Endocrinology [address] [place] [address] Verónica Luis APRN.SHIPPING ORDER CLERK [address] [place] [address] 3 MTH F/U Endocrinology Comment on above: 3 MTH F/U Start: 09-28-2024 Annual PCP Team Chronic Disease Visit Annual PCP Team Chronic Disease Visit [facility] Start: 09-28-2024 BP Controlled (<130/80) BP Controlled (<130/80) [facility] Start: 09-28-2024 Hepatitis B screening Urine Albumin:Creatinine Ratio [facility] Start: 09-26-2024 Hepatitis B surface antibody level LDL Cholesterol [facility] Start: 09-14-2024 End: 09-14-2024 Patient encounter procedure 09/14/2024 2:00 PM EDT Office Visit [facility] [place] [address] [place] [address] Emily Wang MD [address] [place] [address] 3 mo f/u Family [facility] Comment on above: 3 mo f/u Start: 09-08-2024 End: 12-08-2024 Comprehensive metabolic 2000 panel - Serum or Plasma COMPREHENSIVE METABOLIC PANEL Lab Routine Diabetes mellitus, non-insulin dependent (NIDDM or type II) (HCC) Expected: 09/08/2024, Expires: 12/08/2024 [facility] Work Phone: Comment on above: Expected: 09/08/2024, Expires: Start: 09-08-2024 End: 12-08-2024 Hemoglobin A1c in Blood HEMOGLOBIN A1C Lab Routine Diabetes mellitus, non-insulin dependent (NIDDM or type II) (HCC) Expected: 09/08/2024, Expires: 12/08/2024 [facility] Comment on above: Expected: 09/08/2024, Expires: Start: 09-07-2024 Hemoglobin A1c measurement HbA1C [facility] Start: 09-06-2024 End: 09-06-2024 Patient encounter procedure 09/06/2024 9:45 AM EDT Office Visit Endocrinology [address] [place] [address] Verónica Luis APRN.SHIPPING ORDER CLERK [address] [place] [address] 3 MTH F/U Endocrinology Comment on above: 3 MTH F/U Start: 08-15-2024 Hemoglobin A1c measurement HbA1C [facility] Start: 08-10-2024 BP Controlled (<130/80) BP Controlled (<130/80) [facility] Start: 07-06-2024 End: 07-06-2024 Patient encounter procedure 07/06/2024 11:00 AM EDT Office Visit [facility] [place] [address] [facility] [address] Emily Wang MD [address] [facility] [place] [address] follow up shingles, meds-see phone note [facility] Comment on above: follow up shingles, meds-see phone note Start: 06-09-2024 Annual PCP Team Chronic Disease Visit Annual PCP Team Chronic Disease Visit [facility] Start: 06-09-2024 HIV screening HIV Screening [facility] Comment on above: Postponed from 1980 (Declined at t his time) Start: 06-01-2024 End: 06-01-2024 Patient encounter procedure 06/01/2024 8:20 AM EDT Office Visit [facility] [place] [address] [place] [address] Aileen Quintanilla APRN.SHIPPING ORDER CLERK [address] [facility] [place] [address] 3 month follow up with labs [facility] [place] Comment on above: 3 month follow up with labs Start: 05-22-2024 End: 08-21-2024 Hepatic function 2000 panel - Serum or Plasma HEPATIC FUNCTION PNL Lab Routine Coronary artery disease due to lipid rich plaque Expected: 05/22/2024, Expires: 08/21/2024 [facility] Comment on above: Expected: 05/22/2024, Expires: Start: 05-01-2024 End: 07-31-2024 Lipid 1996 panel - Serum or Plasma LIPID PANEL BASIC Lab Routine Coronary artery disease due to lipid rich plaque Expected: 05/01/2024, Expires: 07/31/2024 [facility] Comment on above: Expected: 05/01/2024, Expires: Start: 04-26-2024 BP Controlled (<130/80) BP Controlled (<130/80) [facility] Start: 04-24-2024 End: 04-24-2024 Patient encounter procedure 04/24/2024 9:40 AM EST Office Visit Cardiology [address] [place] [id number] Hawa Padron MD [address] [place] [id number] follow up Cardiology Comment on above: follow up Start: 04-15-2024 Annual PCP Team Chronic Disease Visit Annual PCP Team Chronic Disease Visit [facility] Start: 03-13-2024 Hepatitis B surface antibody level LDL Cholesterol [facility] Start: 03-11-2024 Annual PCP Team Chronic Disease Visit Annual PCP Team Chronic Disease Visit [facility] Start: 02-06-2024 End: 05-07-2024 Comprehensive metabolic 2000 panel - Serum or Plasma COMPREHENSIVE METABOLIC PANEL Lab Routine Poorly controlled type 2 diabetes mellitus (HCC) Expected: 02/06/2024, Expires: 05/07/2024 [facility] Work Phone: Comment on above: Expected: 02/06/2024, Expires: Start: 02-06-2024 End: 05-07-2024 Hemoglobin A1c in Blood HEMOGLOBIN A1C Lab Routine Poorly controlled type 2 diabetes mellitus (HCC) Expected: 02/06/2024, Expires: 05/07/2024 [facility] Comment on above: Expected: 02/06/2024, Expires: Start: 02-06-2024 End: 05-07-2024 LIPID PANEL, NONFASTING LIPID PANEL, NONFASTING Lab Routine Poorly controlled type 2 diabetes mellitus (HCC) Expected: 02/06/2024, Expires: 05/07/2024 [facility] Comment on above: Expected: 02/06/2024, Expires: Start: 02-06-2024 End: 05-07-2024 Microalbumin/Creatinine [Mass Ratio] in Urine ALBUMIN/CREATININE RATIO, URINE Lab Routine Poorly controlled type 2 diabetes mellitus (HCC) Expected: 02/06/2024, Expires: 05/07/2024 [facility] Comment on above: Expected: 02/06/2024, Expires: Start: 01-21-2024 Annual PCP Team Chronic Disease Visit Annual PCP Team Chronic Disease Visit [facility] Start: 01-20-2024 End: 01-20-2024 Patient encounter procedure 01/20/2024 8:00 AM EST Office Visit Cardiology [address] [address] Karen España, CONTROLS ENGINEER.SHIPPING ORDER CLERK [address] [address] follow up Cardiology Comment on above: follow up Start: 01-09-2024 End: 04-09-2024 Creatine kinase [Enzymatic activity/volume] in Serum or Plasma CREATINE KINASE/CK Lab Routine Hypertriglyceridemia Expected: 01/09/2024, Expires: 04/09/2024 [facility] Comment on above: Expected: 01/09/2024, Expires: Start: 01-09-2024 End: 04-09-2024 Hepatic function 2000 panel - Serum or Plasma HEPATIC FUNCTION PNL Lab Routine Coronary artery disease due to lipid rich plaque Mixed hyperlipidemia Expected: 01/09/2024, Expires: 04/09/2024 [facility] Comment on above: Expected: 01/09/2024, Expires: Start: 01-09-2024 End: 04-09-2024 LIPID PANEL, NONFASTING LIPID PANEL, NONFASTING Lab Routine Coronary artery disease due to lipid rich plaque Mixed hyperlipidemia Expected: 01/09/2024, Expires: 04/09/2024 [facility] Work Phone: Comment on above: Expected: 01/09/2024, Expires: Start: 01-06-2024 End: 01-06-2024 Patient encounter procedure 01/06/2024 1:00 PM EDT Office Visit [facility] [address] [place], [place] [id number] Aileen Quintanilla APRN.SHIPPING ORDER CLERK [address] [place] [address] 3 month follow up with labs [facility] Comment on above: 3 month follow up with labs Start: 12-30-2023 End: 03-30-2024 Comprehensive metabolic 2000 panel - Serum or Plasma COMPREHENSIVE METABOLIC PANEL Lab Routine Hyperlipidemia, unspecified hyperlipidemia type Expected: 12/30/2023, Expires: 03/30/2024 [facility] Comment on above: Expected: 12/30/2023, Expires: Start: 12-30-2023 End: 03-30-2024 Hemoglobin A1c in Blood HEMOGLOBIN A1C Lab Routine Diabetes mellitus, non-insulin dependent (NIDDM or type II) (HCC) Expected: 12/30/2023, Expires: 03/30/2024 [facility] Work Phone: Comment on above: Expected: 12/30/2023, Expires: Start: 12-30-2023 End: 03-30-2024 Lipid 1996 panel - Serum or Plasma LIPID PANEL BASIC Lab Routine Hyperlipidemia, unspecified hyperlipidemia type Expected: 12/30/2023, Expires: 03/30/2024 [facility] Comment on above: Expected: 12/30/2023, Expires: Start: 12-30-2023 End: 12-30-2023 Patient encounter procedure 12/30/2023 9:00 AM EDT Appointment Cardiology Lab [address] [place] [address] ECHO Cardiology Lab Comment on above: ECHO Start: 12-28-2023 Hemoglobin A1c measurement HbA1C [facility] Start: 12-23-2023 Subsequent hospital visit by physician 12/23/2023 2:30 PM EDT Hospital Encounter Cardiology Lab [address] [place] [address] Coronary artery disease due to lipid rich plaque [I25.10, I25.83] Cardiology Lab Comment on above: Coronary artery disease due to lipid esperanza h plaque [I25.10, I25.83] Start: 12-23-2023 End: 12-23-2023 Patient encounter procedure Cardiology Lab Comment on above: Coronary artery disease due to lipid esperanza h plaque [I25.10, I25.83] Start: 12-10-2023 End: 12-10-2023 ambulatory 12/10/2023 10:[address] [facility] [address] [place] [address] Samra Dickens, CONTROLS ENGINEER.SHIPPING ORDER CLERK [address] [place] [address] NEW CONSULT Anxiety with depression [F41.8] Psychiatry Comment on above: NEW CONSULT Anxiety with depression [F41 .8] Start: 12-09-2023 End: 12-08-2024 Echocardiography ECHO Cardiology Routine Coronary artery disease due to lipid rich plaque SOB (shortness of breath) Expected: 12/09/2023, Expires: 12/08/2024 [facility] Comment on above: Expected: 12/09/2023, Expires: Start: 12-09-2023 End: 01-08-2025 NM Heart Perfusion W stress and W radionuclide IV NM CARDIAC PERF STRESS/PHARM Radiology Routine Coronary artery disease due to lipid rich plaque SOB (shortness of breath) Expected: 12/09/2023, Expires: 01/08/2025 [facility] Comment on above: Expected: 12/09/2023, Expires: Start: 11-27-2023 Hepatitis B surface antibody level LDL Cholesterol [facility] Start: 11-26-2023 Annual PCP Team Chronic Disease Visit Annual PCP Team Chronic Disease Visit [facility] Start: 11-24-2023 End: 11-24-2023 Patient encounter procedure 11/24/2023 9:15 AM EDT Office Visit Endocrinology [address] [place] [address] Verónica Luis APRN.SHIPPING ORDER CLERK [address] [place] [address] 3 MTH F/U Endocrinology Comment on above: 3 MTH F/U Start: 11-11-2023 Hemoglobin A1c measurement HbA1C [facility] Start: 11-10-2023 End: 11-10-2023 Patient encounter procedure 11/10/2023 5:00 PM EDT Office Visit [facility] [address] [place] [address] Aileen Quintanilla APRN.SHIPPING ORDER CLERK [address] [facility] [address] vaginal discomfort [facility] Comment on above: vaginal discomfort Start: 11-07-2023 Covid-19 Vaccine ( season) Covid-19 Vaccine ( season) [facility] Start: 11-07-2023 Covid-19 Vaccine ( season) Covid-19 Vaccine () [facility] Start: 11-07-2023 Influenza vaccination Influenza Vaccine (#1) [facility] Start: 10-07-2023 End: 01-06-2024 ALBUMIN/CREAT RATIO RND UR ALBUMIN/CREAT RATIO RND UR Lab Routine Poorly controlled type 2 diabetes mellitus (HCC) Expected: 10/07/2023, Expires: 01/06/2024 [facility] Work Phone: Comment on above: Expected: 10/07/2023, Expires: 4 Start: 10-07-2023 End: 01-06-2024 Comprehensive metabolic 2000 panel - Serum or Plasma COMP METABOLIC PANEL Lab Routine Poorly controlled type 2 diabetes mellitus (HCC) Expected: 10/07/2023, Expires: 01/06/2024 [facility] Work Phone: Comment on above: Expected: 10/07/2023, Expires: Start: 10-07-2023 End: 01-06-2024 Hemoglobin A1c in Blood HGB A1C Lab Routine Poorly controlled type 2 diabetes mellitus (HCC) Expected: 10/07/2023, Expires: 01/06/2024 [facility] Work Phone: Comment on above: Expected: 10/07/2023, Expires: Start: 10-07-2023 End: 01-06-2024 LIPID PANEL, NONFASTING LIPID PANEL, NONFASTING Lab Routine Poorly controlled type 2 diabetes mellitus (HCC) Expected: 10/07/2023, Expires: 01/06/2024 [facility] Work Phone: Comment on above: Expected: 10/07/2023, Expires: Start: 10-06-2023 ANNUAL PCP TEAM CHRONIC DISEASE VISIT ANNUAL PCP TEAM CHRONIC DISEASE VISIT [facility] Start: 10-05-2023 End: 10-05-2023 Patient encounter procedure 10/05/2023 8:00 AM EDT Office Visit Psychiatry [address] [place] [id number] Samra Dickens, CONTROLS ENGINEER.SHIPPING ORDER CLERK [address] [place] [address] new pt anxiety/depression Psychiatry Comment on above: new pt anxiety/depression Start: 09-29-2023 End: 09-29-2023 Patient encounter procedure 09/29/2023 4:00 PM EDT Office Visit Family Gerardo Patton [address] [place] [address] Aileen Quintanilla, CONTROLS ENGINEER.SHIPPING ORDER CLERK [address] [place] [address] 3 month follow up Family Gerardo Patton Comment on above: 3 month follow up Start: 09-17-2023 ANNUAL PCP TEAM CHRONIC DISEASE VISIT ANNUAL PCP TEAM CHRONIC DISEASE VISIT [facility] Start: 09-16-2023 End: 09-16-2023 Patient encounter procedure 09/16/2023 10:00 AM EDT Office Visit Family Medicine [facility] [address] [place] [address] Aileen Quintanilla APRN.SHIPPING ORDER CLERK [address] [place] [address] 3 month follow up Family Medicine [facility] Comment on above: 3 month follow up Start: 09-09-2023 End: 12-09-2023 Comprehensive metabolic 2000 panel - Serum or Plasma COMP METABOLIC PANEL Lab Routine Poorly controlled diabetes mellitus (HCC) Expected: 09/09/2023, Expires: 12/09/2023 [facility] Work Phone: Comment on above: Expected: 09/09/2023, Expires: Start: 09-09-2023 End: 12-09-2023 Hemoglobin A1c in Blood HGB A1C Lab Routine Poorly controlled diabetes mellitus (HCC) Expected: 09/09/2023, Expires: 12/09/2023 [facility] Work Phone: Comment on above: Expected: 09/09/2023, Expires: Start: 08-26-2023 3 comp foot exam completed DIABETIC FOOT EXAM [facility] Start: 08-26-2023 ANNUAL PCP TEAM CHRONIC DISEASE VISIT ANNUAL PCP TEAM CHRONIC DISEASE VISIT [facility] Start: 08-26-2023 Diabetic foot examination Diabetic Foot Exam [facility] Start: 08-25-2023 Hepatitis B screening URINE ALBUMIN:CREATININE RATIO [facility] Start: 08-12-2023 Hemoglobin A1c measurement HbA1C [facility] Start: 08-11-2023 End: 08-11-2023 Patient encounter procedure 08/11/2023 9:45 AM EDT Office Visit Endocrinology [address] [place] [address] Verónica Luis, CONTROLS ENGINEER.SHIPPING ORDER CLERK [address] [place] [address] 3 MTH F/U Endocrinology Comment on above: 3 MTH F/U Start: 06-20-2023 ANNUAL PCP TEAM CHRONIC DISEASE VISIT ANNUAL PCP TEAM CHRONIC DISEASE VISIT [facility] Start: 06-12-2023 Hemoglobin A1c measurement HbA1C [facility] Start: 05-16-2023 Hepatitis B surface antibody level LDL CHOLESTEROL [facility] Start: 05-13-2023 ANNUAL PCP TEAM CHRONIC DISEASE VISIT ANNUAL PCP TEAM CHRONIC DISEASE VISIT [facility] Start: 03-10-2023 ANNUAL PCP TEAM CHRONIC DISEASE VISIT ANNUAL PCP TEAM CHRONIC DISEASE VISIT [facility] Start: 02-25-2023 Hemoglobin A1c/Hemoglobin.total in Blood HbA1C [facility] Start: 02-24-2023 End: 04-26-2023 Comprehensive metabolic 2000 panel - Serum or Plasma COMP METABOLIC PANEL Lab Routine Uncontrolled type 2 diabetes mellitus with hyperglycemia (HCC) Expected: 02/24/2023, Expires: 04/26/2023 [facility] Work Phone: Comment on above: Expected: 02/24/2023, Expires: Start: 02-24-2023 End: 04-26-2023 Hemoglobin A1c in Blood HGB A1C Lab Routine Uncontrolled type 2 diabetes mellitus with hyperglycemia (HCC) Expected: 02/24/2023, Expires: 04/26/2023 [facility] Work Phone: Comment on above: Expected: 02/24/2023, Expires: 4 Start: 02-12-2023 ANNUAL PCP TEAM CHRONIC DISEASE VISIT ANNUAL PCP TEAM CHRONIC DISEASE VISIT [facility] Start: 02-12-2023 BP CONTROLLED (<130/80) BP CONTROLLED (<130/80) [facility] Start: 02-12-2023 HIV SCREENING HIV SCREENING [facility] Comment on above: Postponed from 1980 (Declined at t his time) Start: 01-27-2023 BP CONTROLLED (<130/80) BP CONTROLLED (<130/80) [facility] Start: 01-21-2023 End: 03-23-2023 Lipid 1996 panel - Serum or Plasma LIPID PANEL BASIC Lab Routine Chest pain, unspecified type Atherosclerosis of soboba coronary artery of soboba heart without angina pectoris Abnormal stress test Hypertension, essential Mixed hyperlipidemia Obstructive sleep apnea Dyspnea on exertion Diabetes mellitus, non-insulin dependent (NIDDM or type II) (HCC) Expected: 01/21/2023, Expires: 03/23/2023 [facility] Work Phone: Comment on above: Expected: 01/21/2023, Expires: 4 Start: 12-05-2022 Glaucoma screening Dilated Retinal Exam [facility] Start: 12-05-2022 Hepatitis C antibody, confirmatory test DILATED RETINAL EXAM [facility] Start: 11-25-2022 End: 01-25-2023 Bacteria identified in Urine by Culture URINE CULTURE Microbiology Routine Dysuria Expected: 11/25/2022, Expires: 01/25/2023 [facility] Work Phone: Comment on above: Expected: 11/25/2022, Expires: Start: 11-25-2022 End: 01-25-2023 Comprehensive metabolic 2000 panel - Serum or Plasma COMP METABOLIC PANEL Lab Routine Hypertension, essential Uncontrolled type 2 diabetes mellitus with hyperglycemia (HCC) Pure hypercholesterolemia Hypomagnesemia Expected: 11/25/2022 (Approximate), Expires: 01/25/2023 [facility] Work Phone: Comment on above: Expected: 11/25/2022 (Approximate), Expi res: 01/25/2023 Start: 11-25-2022 End: 01-25-2023 Hemoglobin A1c in Blood HGB A1C Lab Routine Uncontrolled type 2 diabetes mellitus with hyperglycemia (HCC) Expected: 11/25/2022 (Approximate), Expires: 01/25/2023 [facility] Work Phone: Comment on above: Expected: 11/25/2022 (Approximate), Expi res: 01/25/2023 Start: 11-25-2022 End: 01-25-2023 Lipid 1996 panel - Serum or Plasma LIPID PANEL BASIC Lab Routine Hypertension, essential Pure hypercholesterolemia Expected: 11/25/2022 (Approximate), Expires: 01/25/2023 [facility] Work Phone: Comment on above: Expected: 11/25/2022 (Approximate), Expi res: 01/25/2023 Start: 11-25-2022 End: 01-25-2023 Urinalysis complete panel - Urine URINALYSIS, WITH MICROSCOPIC Lab Routine Dysuria Expected: 11/25/2022, Expires: 01/25/2023 [facility] Work Phone: Comment on above: Expected: 11/25/2022, Expires: Start: 11-24-2022 Hemoglobin A1c/Hemoglobin.total in Blood HBA1C [facility] Start: 11-06-2022 Covid-19 Vaccine ( season) Covid-19 Vaccine ( season) [facility] Start: 11-06-2022 Hepatitis B surface antibody level LDL CHOLESTEROL [facility] Start: 11-06-2022 Influenza vaccination [facility] Start: 10-30-2022 ANNUAL PCP TEAM CHRONIC DISEASE VISIT ANNUAL PCP TEAM CHRONIC DISEASE VISIT [facility] Start: 2022 RSV Vaccine (1 - 1-dose 60+ series) RSV Vaccine (1 - 1-dose 60+ series) [facility] Start: 2022 RSV Vaccine (1 - Risk 60-74 years 1-dose series) RSV Vaccine (1 - Risk 60-74 years 1-dose series) [facility] Start: 08-21-2022 ANNUAL PCP TEAM CHRONIC DISEASE VISIT ANNUAL PCP TEAM CHRONIC DISEASE VISIT [facility] Start: 08-21-2022 BP CONTROLLED (<130/80) BP CONTROLLED (<130/80) [facility] Start: 08-19-2022 End: 10-19-2022 ALBUMIN/CREAT RATIO RND UR ALBUMIN/CREAT RATIO RND UR Lab Routine Diabetes mellitus, non-insulin dependent (NIDDM or type II) (HCC) Expected: 08/19/2022 (Approximate), Expires: 10/19/2022 [facility] Work Phone: Comment on above: Expected: 08/19/2022 (Approximate), Expi res: 10/19/2022 Start: 08-19-2022 End: 10-19-2022 Comprehensive metabolic 2000 panel - Serum or Plasma COMP METABOLIC PANEL Lab Routine Diabetes mellitus, non-insulin dependent (NIDDM or type II) (HCC) Expected: 08/19/2022 (Approximate), Expires: 10/19/2022 [facility] Work Phone: Comment on above: Expected: 08/19/2022 (Approximate), Expi res: 10/19/2022 Start: 08-19-2022 End: 10-19-2022 Hemoglobin A1c in Blood HGB A1C Lab Routine Diabetes mellitus, non-insulin dependent (NIDDM or type II) (HCC) Expected: 08/19/2022 (Approximate), Expires: 10/19/2022 [facility] Work Phone: Comment on above: Expected: 08/19/2022 (Approximate), Expi res: 10/19/2022 Start: 08-15-2022 Hemoglobin A1c/Hemoglobin.total in Blood HBA1C [facility] Start: 06-30-2022 Hepatitis B surface antibody level LDL CHOLESTEROL [facility] Start: 05-13-2022 End: 07-13-2022 Comprehensive metabolic 2000 panel - Serum or Plasma COMP METABOLIC PANEL Lab Routine Controlled type 2 diabetes mellitus without complication, without long-term current use of insulin ([facility]) Hypertension, essential Pure hypercholesterolemia Expected: 05/13/2022 (Approximate), Expires: 07/13/2022 [facility] Work Phone: Comment on above: Expected: 05/13/2022 (Approximate), Expi res: 07/13/2022 Start: 05-13-2022 End: 07-13-2022 Hemoglobin A1c in Blood HGB A1C Lab Routine Controlled type 2 diabetes mellitus without complication, without long-term current use of insulin (HCC) Expected: 05/13/2022 (Approximate), Expires: 07/13/2022 [facility] Work Phone: Comment on above: Expected: 05/13/2022 (Approximate), Expi res: 07/13/2022 Start: 05-13-2022 End: 07-13-2022 Lipid 1996 panel - Serum or Plasma LIPID PANEL BASIC Lab Routine Controlled type 2 diabetes mellitus without complication, without long-term current use of insulin (HCC) Hypertension, essential Pure hypercholesterolemia Expected: 05/13/2022 (Approximate), Expires: 07/13/2022 [facility] Work Phone: Comment on above: Expected: 05/13/2022 (Approximate), Expi res: 07/13/2022 Start: 05-06-2022 Hemoglobin A1c/Hemoglobin.total in Blood HBA1C [facility] Start: 04-29-2022 ANNUAL PCP TEAM CHRONIC DISEASE VISIT ANNUAL PCP TEAM CHRONIC DISEASE VISIT [facility] Start: 04-29-2022 Hepatitis B screening URINE ALBUMIN:CREATININE RATIO [facility] Start: 04-24-2022 3 comp foot exam completed DIABETIC FOOT EXAM [facility] Start: 03-27-2022 End: 05-27-2022 Lipid 1996 panel - Serum or Plasma LIPID PANEL BASIC Lab Routine Chest pain, unspecified type Atherosclerosis of soboba coronary artery of soboba heart without angina pectoris Pure hypercholesterolemia Hypertension, essential Obstructive sleep apnea Shortness of breath Diabetes mellitus, non-insulin dependent (NIDDM or type II) (HCC) Expected: 03/27/2022, Expires: 05/27/2022 [facility] Work Phone: Comment on above: Expected: 03/27/2022, Expires: 3 Start: 03-10-2022 Hepatitis B surface antibody level LDL CHOLESTEROL [facility] Start: 01-27-2022 End: 03-29-2022 Basic metabolic 2000 panel - Serum or Plasma BASIC METABOLIC PNL Lab Routine Atherosclerosis of soboba coronary artery of soboba heart without angina pectoris Abnormal stress test Expected: 01/27/2022, Expires: 03/29/2022 [facility] Work Phone: Comment on above: Expected: 01/27/2022, Expires: 3 Start: 01-27-2022 End: 03-29-2022 CBC panel - Blood by Automated count CBC Lab Routine Atherosclerosis of soboba coronary artery of soboba heart without angina pectoris Abnormal stress test Expected: 01/27/2022, Expires: 03/29/2022 [facility] Work Phone: Comment on above: Expected: 01/27/2022, Expires: 3 Start: 01-27-2022 End: 03-29-2022 Magnesium [Mass/volume] in Serum or Plasma MAGNESIUM BLD Lab Routine Atherosclerosis of soboba coronary artery of soboba heart without angina pectoris Abnormal stress test Expected: 01/27/2022, Expires: 03/29/2022 [facility] Work Phone: Comment on above: Expected: 01/27/2022, Expires: 3 Start: 11-06-2021 Influenza vaccination INFLUENZA (#1) [facility] Start: 09-29-2021 Hemoglobin A1c/Hemoglobin.total in Blood HBA1C [facility] Start: 08-04-2021 SHINGRIX VACCINE (2 of 2) SHINGRIX VACCINE (2 of 2) [facility] Start: 07-06-2021 Colonoscopy COLONOSCOPY [facility] Start: 07-06-2021 COLORECTAL CANCER SCREENING COLORECTAL CANCER SCREENING [facility] Start: 07-06-2021 Screening for malignant neoplasm of colon [facility] Start: 06-08-2021 Hemoglobin A1c/Hemoglobin.total in Blood HBA1C [facility] Start: 05-22-2021 COVID-19 VACCINE (4 - Booster for Pfizer series) COVID-19 VACCINE (4 - Booster for Pfizer series) [facility] Start: 03-19-2021 COVID-19 VACCINE (4 - Booster for Pfizer series) COVID-19 VACCINE (4 - Booster for Pfizer series) [facility] Start: 03-19-2021 COVID-19 VACCINE (4 - Pfizer series) COVID-19 VACCINE (4 - Pfizer series) [facility] Start: 11-13-2020 Hepatitis C antibody, confirmatory test DILATED RETINAL EXAM [facility] Start: 08-27-2019 Urine microalbumin profile [facility] Start: 04-15-2018 Mammography [facility] Start: 04-15-2018 Screening for malignant neoplasm of breast Mammogram Screening [facility] Start: 2012 SHINGRIX VACCINE (1 of 2) SHINGRIX VACCINE (1 of 2) [facility] Start: 10-24-2007 COLOGUARD (FIT-DNA) COLOGUARD (FIT-DNA) [facility] Start: 10-24-[address] COLONOGRAPHY [facility] Start: 10-24-2007 FECAL OCCULT BLOOD FECAL OCCULT BLOOD [facility] Start: 10-24-2007 Screening for malignant neoplasm of colon [facility] Start: 10-24-2007 SIGMOIDOSCOPY SIGMOIDOSCOPY [facility] Start: 1981 Pneumococcal Vaccine: 50+ (1 of 2 - PCV) Pneumococcal Vaccine: 50+ (1 of 2 - PCV) [facility] Start: 1980 BP CONTROLLED (<130/80) BP CONTROLLED (<130/80) [facility] Start: 1980 HIV SCREENING HIV SCREENING [facility] Start: 1980 HIV screening HIV Screening [facility] Start: 1968 PNEUMOCOCCAL (1 - PCV) PNEUMOCOCCAL (1 - PCV) [facility] Start: 1968 Pneumococcal vaccination [facility] Bacteria identified in Urine by Culture URINE CULTURE Microbiology Routine Dysuria Ordered: 11/07/2023 [facility] Comment on above: Ordered: 11/07/2023 BACTERIAL VAGINOSIS NAAT BACTERIAL VAGINOSIS NAAT Lab Routine Vaginal discharge Dysuria Ordered: 11/07/2023 [facility] Comment on above: Ordered: 11/07/2023 JAKOB/TRICHOMONAS NAAT JAKOB/TRICHOMONAS NAAT Lab Routine Vaginal discharge 01/20/2023 9:17 AM [facility] Work Phone: JAKOB/TRICHOMONAS NAAT JAKOB/TRICHOMONAS NAAT Lab Routine Vaginal discharge Dysuria Ordered: 11/07/2023 [facility] Work Phone: Comment on above: Ordered: 11/07/2023 COVID & INFLUENZA A/ B & RSV NAAT, ROUTINE COVID & INFLUENZA A/B & RSV NAAT, ROUTINE Microbiology Routine Viral syndrome Ordered: 04/26/2023 [facility] Work Phone: Comment on above: Ordered: 04/26/2023 End: 07-13-2025 DBT Breast - bilateral screening OSIEL SCREENING W ALEXIS Radiology Routine Encounter for screening mammogram for breast cancer 1 Occurrences starting 06/13/2024 until 07/13/2025 [facility] Work Phone: Comment on above: 1 Occurrences starting 06/13/2024 until 07/13/2025 ECG COMPLETE ECG COMPLETE ECG 04/14/2022 10:26 AM EST [facility] End: 02-11-2022 LEFT HEART CATHETERIZATION LEFT HEART CATHETERIZATION BIC Routine One Time for 1 Occurrences starting 02/11/2022 until 02/11/2022 [facility] Work Phone: Comment on above: One Time for 1 Occurrences starting 09/2021 until 02/11/2022 End: 08-12-2024 MG Breast Screening OSIEL SCREENING Radiology Routine Encounter for screening mammogram for breast cancer 1 Occurrences starting 07/14/2023 until 08/12/2024 [facility] Work Phone: Comment on above: 1 Occurrences starting 07/14/2023 until 08/12/2024 End: 01-24-2023 NM CARDIAC PERF STRESS/EXERCISE NM CARDIAC PERF STRESS/EXERCISE Radiology Routine Chest pain, unspecified type Atherosclerosis of soboba coronary artery of soboba heart without angina pectoris Pure hypercholesterolemia Hypertension, essential Obstructive sleep apnea Shortness of breath Diabetes mellitus, non-insulin dependent (NIDDM or type II) ([facility]) 1 Occurrences starting 12/25/2021 until 01/24/2023 [facility] Work Phone: Comment on above: 1 Occurrences starting 12/25/2021 until 01/24/2023 NM CARDIAC PERF STRESS/EXERCISE NM CARDIAC PERF STRESS/EXERCISE Radiology Routine Chest pain, unspecified type Atherosclerosis of soboba coronary artery of soboba heart without angina pectoris Pure hypercholesterolemia Hypertension, essential Obstructive sleep apnea Shortness of breath Diabetes mellitus, non-insulin dependent (NIDDM or type II) (HCC) 01/23/2022 11:29 AM EST [facility] Work Phone: End: 10-03-2022 Screening mammography bi 2-view breast inc cad OSIEL SCREENING Radiology Routine Encounter for screening mammogram for breast cancer 1 Occurrences starting 09/03/2021 until 10/03/2022 [facility] Work Phone: Comment on above: 1 Occurrences starting 09/03/2021 until 10/03/2022 End: 10-17-2023 US ABD RIGHT UPPER QUADRANT US ABD RIGHT UPPER QUADRANT Radiology STAT Abdominal pain, unspecified abdominal location 1 Occurrences starting 09/17/2022 until 10/17/2023 [facility] Work Phone: Comment on above: 1 Occurrences starting 09/17/2022 until 10/17/2023 End: 12-09-2024 US Pelvis limited US FEMALE PELVIS TRANSABD LTD Radiology Routine Vaginal bleeding 1 Occurrences starting 11/10/2023 until 12/09/2024 [facility] Work Phone: Comment on above: 1 Occurrences starting 11/10/2023 until 12/09/2024 End: 12-09-2024 US Pelvis transvaginal US FEMALE PELVIS TRANSVAG Radiology Routine Vaginal bleeding 1 Occurrences starting 11/10/2023 until 12/09/2024 [facility] Comment on above: 1 Occurrences starting 11/10/2023 until 12/09/2024 [facility] Immunizations Immunization Date Immunization Notes Care Provider [facility] 02-16-2024 COVID-19 vaccine, ag e 12+ yr (PFIZER-BIONTECH COMIRNATY) Emily Wang MD Work Phone: [facility] 02-16-2024 influenza, seasonal, injectable Emily Wang MD Work Phone: [facility] 02-16-2024 influenza virus vaccine, unspecified formulation Verónica Luis CONTROLS ENGINEER.SHIPPING ORDER CLERK Work Phone: [facility] 03-05-2023 influenza virus vaccine, unspecified formulation Emily Wang MD Work Phone: [facility] 04-06-2022 influenza virus vaccine, unspecified formulation Karen Funez CONTROLS ENGINEER.SHIPPING ORDER CLERK Work Phone: [facility] 08-11-2021 zoster vaccine recombinant Emily Wang MD Work Phone: [facility] 06-09-2021 zoster vaccine recombinant Aileen Quintanilla CONTROLS ENGINEER.SHIPPING ORDER CLERK Work Phone: [facility] 06-13-2020 COVID-19 vaccine, ag e 12+ yr (PFIZER-BIONTECH - PURPLE TOP) Emily Wang MD Work Phone: [facility] Work Phone: 05-23-2020 COVID-19 vaccine, ag e 12+ yr (PFIZER-BIONTECH - PURPLE TOP) Emily Wang MD Work Phone: [facility] Work Phone: 12-30-2016 influenza, injectabl e, quadrivalent, contains preservative Emily Wang MD Work Phone: [facility] Work Phone: 01-17-2016 influenza, injectabl e, quadrivalent, contains preservative Emily Wang MD Work Phone: [facility] 12-31-2014 influenza, injectabl e, quadrivalent, contains preservative Emily Wang MD Work Phone: [facility] 01-26-2014 influenza, seasonal, injectable Emily Wang MD Work Phone: [facility] Work Phone: 12-04-2010 influenza virus vaccine, unspecified formulation Emily Wang MD Work Phone: [facility] Work Phone: 08-26-2009 tetanus toxoid, reduced diphtheria toxoid, and acellular pertussis vaccine, adsorbed Emily Wang MD Work Phone: [facility] Work Phone: 02-18-2009 novel [id number], all formulations Emily Wang MD Work Phone: [facility] Work Phone: Payers Date Payer Category Payer Private Health Insurance [id number] 2023 Unknown [id number] 2022 Government (not [facility] care or Medicaid) [facility] [id number] 2021 Self-pay 2018 Unknown MMO [employer]MO [employer] [id number] 2018-Present [phone] [address] [place] [address] PPO [id number] 2018 Unknown [id number] 2018 Unknown [id number] Unknown [id number] Unknown [id number] Social History Date Type Detail Facility Start: 09-02-2020 End: 09-06-2024 Tobacco smoking status NHIS Ex-smoker [facility] Work Phone: Start: 06-02-2017 End: 06-02-2020 History of tobacco use Current smoker [facility] Work Phone: Start: 09-02-2020 End: 09-06-2024 Tobacco use and exposure Smokeless tobacco non-user [facility] Work Phone: Start: 02-25-2021 End: 04-29-2021 Alcohol intake Ex-drinker (finding) [facility] Start: 09-02-2020 End: 07-02-2021 History SDOH Alcohol Frequency 1 [facility] Start: 02-05-2017 Tobacco Comment social smoking for 3 years [facility] Start: 1960 Sex Assigned At Not on file [facility] Start: 07-02-2021 History SDOH Social Connections Phone 2 [facility] Start: 07-02-2021 History SDOH Social Connections Living 3 [facility] Start: 07-02-2021 History SDOH Physica l Activity DPW 0 [facility] Start: 07-02-2021 History SDOH Financial 4 [facility] Start: 07-31-2021 End: 10-17-2021 Tobacco Comment social smoking for 3 years. Occasional smoking when upset [facility] Start: 07-13-2020 End: 02-07-2022 Exposure to SARS-CoV-2 (event) Not sure [facility] Work Phone: Start: 06-02-2017 End: 06-02-2020 History of tobacco use Cigarette Smoker [facility] Start: 07-02-2021 End: 08-25-2022 History of Social function [facility] Start: 07-02-2021 End: 08-25-2022 Social connection and isolation panel [facility] Do you belong to any clubs or organizations such as baptist groups, unions, fraternal or athletic groups, or school groups? No [facility] Are you now , , , , never or living with a partner? [facility] How hard is it for y ou to pay for the very basics like food, housing, medical care, and heating Not very hard [facility] PHQ2 Score 0 [facility] Work Phone: (I/We) worried nolberto er (my/our) food would run out before (I/we) got money to buy more. Sometimes true [facility] Start: 10-05-2022 End: 09-06-2024 Alcohol intake Current drinker of alcohol (finding) [facility] Start: 09-27-2022 Alcohol Comment [facility]ially [facility] Start: 08-12-2020 [facility] tobacco smoker [facility] History of tobacco use Passive smoker [facility] Medical Equipment Procedure Code Equipment Code Equipment Original Text Equipment Identifier Dates [id number], [id number], [id number] Start: 08-22-2018 End: 09-06-2024 Comment on above: Test blood sugar(s) 1 times daily. Dx: Type 2 DM - Uncontrolled E11.65 Insulin: No Test blood sugar(s) 1 times daily. Dx: E11.65. Insulin: No Test blood sugar(s) one times daily. Dx: Type 2 DM - Uncontrolled E11.65 Insulin: No Functional Status Date Assessment Result Facility 04-20-2021 Are you deaf, or do you have serious difficulty hearing No 04/20/2021 10:55 AM Yuki Farias RN No [facility] 04-20-2021 Are you blind, or do you have serious difficulty seeing, even when wearing glasses No 04/20/2021 10:55 AM Yuki Farias RN No [facility] 04-20-2021 Do you have serious difficulty walking or climbing stairs No 04/20/2021 10:55 AM Yuki Farias RN No [facility] 04-20-2021 Do you have difficul ty dressing or bathing No 04/20/2021 10:55 AM Yuki Farias RN No [facility] 04-20-2021 Because of a physica l, mental, or emotional condition, do you have difficulty doing errands alone such as visiting a physician's office or shopping No 04/20/2021 10:55 AM Yuki Farias RN No [facility] Mental Status Date Assessment Result Facility 04-20-2021 Because of a physica l, mental, or emotional condition, do you have serious difficulty concentrating, remembering, or making decisions No 04/20/2021 10:55 AM Yuki Farias RN No [facility] Clinical Notes 02-12-2012 to 09-11-2024 Telephone Encounter - Bahman Edmonds APRN.CNP - 09/11/2024 7:01 AM EDTTelephone Encounter - Bahman Edmonds APRN.CNP - 09/11/2024 7:01 AM Verónica Moran APRN.CNP - 09/06/2024 9:45 AM EDT Note Date & Type Note Facility 09-11-2024 Telephone encounter Note Approved. PDMP website checked and validated. All prescriptions have been APPROPRIATELY filled. No suspicious activity was identified. 09/11/2024 by Bahman dEmonds APRN.CNP The following approved medication requests have been transmitted electronically. Requested Prescriptions Signed Prescriptions Disp Refills LORazepam (ATIVAN) 0.5 mg 120 tablet 0 Sig: Take 2 tablets by mouth two times a day for 30 days. Authorizing Provider: BAHMAN EDMONDS APRN.CNP [facility] 09-11-2024 Miscellaneous Notes Approved. PDMP website checked and validated. All prescriptions have been APPROPRIATELY filled. No suspicious activity was identified. 09/11/2024 by Bahman Edmonds APRN.CNP The following approved medication requests have been transmitted electronically. Requested Prescriptions Signed Prescriptions Disp Refills LORazepam (ATIVAN) 0.5 mg 120 tablet 0 Sig: Take 2 tablets by mouth two times a day for 30 days. Authorizing Provider: BAHMAN EDMONDS APRN.CNP The patient has been identified by name and date of : Yes Caregiver verified no other encounters exist for this prescription request: Yes Caregiver confirmed with patient/requestor that no other refills are due, in the near future, with this provider at this time: Yes The last office visit in the department: 07/06/2024 Does the patient have a future office visit with this provider/department: 09/14/2024 Requested Prescriptions Pending Prescriptions Disp Refills LORazepam (ATIVAN) 0.5 mg 120 tablet 0 Sig: Take 2 tablets by mouth two times a day for 30 days. Patient also requesting Vitamin B-12 refill. Sent in yesterday 09/06/2024 by Melina Luis. Olga Samayoa RN September 07, 2024 4:01 PM documented in this encounter [facility] 09-07-2024 Telephone encounter Note The patient has been identified by name and date of : Yes Caregiver verified no other encounters exist for this prescription request: Yes Caregiver confirmed with patient/requestor that no other refills are due, in the near future, with this provider at this time: Yes The last office visit in the department: 07/06/2024 Does the patient have a future office visit with this provider/department: 09/14/2024 Requested Prescriptions Pending Prescriptions Disp Refills LORazepam (ATIVAN) 0.5 mg 120 tablet 0 Sig: Take 2 tablets by mouth two times a day for 30 days. Patient also requesting Vitamin B-12 refill. Sent in yesterday 09/06/2024 by Melina Luis. Olga Samayoa RN September 07, 2024 4:01 PM [facility] 09-06-2024 History of Present illness Narrative OFFICE VISIT PROGRESS NOTE CC Camila Harmon is a 63 year old who presents today for blood sugar review, DM med dose review, adjust. HPI PATIENT OF [facility]IDEL GUEVARA, ENDOCRINE Diagnosed with diabetes mellitus type II, ~ 2005 Last endocrine OV Some elements copied from my note 08/10/2023 which have been updated where appropriate, and all reflect current medical decision making from date of this visit. 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 Kevin, 02/2024 - is due later this year, normal exam Last Podiatry Exam: Cardiorespiratory: negative, denies chest pain, pressure Claudication: no Dyslipidemia: Yes, controlled on medication High Blood Pressure: Yes, controlled on medication CURRENT LABS -- IN OFFICE A1C obtained for today's visit HEMOGLOBIN A1C Component Ref Range & Units 3 mo ago (06/08/24) 6 mo ago (02/15/24) 11 mo ago (09/27/23) 1 yr ago (03/13/23) 1 yr ago (11/26/22) 2 yr ago (08/24/22) 2 yr ago (05/15/22) Hemoglobin A1C 4.3 - 5.6 % 8.2 High 7.9 High CM 10.4 High CM 10.7 High CM Latest Ref Rng 02/15/2024 Hemoglobin A1C 4.3 - 5.6 % 7.9 (H) Estimated Average Glucose mg/dL 180 Legend: (H) High Recent Labs 11/24/19 1029 03/18/20 1013 03/10/21 0905 04/17/21 1924 04/29/21 1510 06/30/21 0942 08/24/22 0807 09/16/22 0851 09/27/23 1526 09/29/23 1514 10/07/23 1827 02/15/24 0842 06/08/24 1208 ALT 26 < > 25 < > -- < > -- < > 29 -- 22 23 25 AST 26 < > 15 < > -- < > -- < > 21 -- -- 15 17 UCRR -- -- -- -- 191.6 -- 182.2 -- -- 54.9 -- -- -- UALBR -- -- -- -- 26.6 -- 43.8 -- -- <12.0 -- -- -- UALBCR -- -- -- -- 14 -- 24 -- -- <22 -- -- -- TSH 1.580 -- 1.090 -- -- -- -- -- -- -- -- -- -- TPROT 6.9 < > 7.3 < > -- < > -- < > 7.1 -- 7.0 6.9 7.2 ALB 4.1 < > 4.4 < > -- < > -- < > 4.4 -- 4.3 4.3 4.2 CA 9.4 < > 9.9 < > -- < > -- < > 9.7 -- 9.3 9.3 9.5 TBILI 1.0 < > 0.9 < > -- < > -- < > 1.2 -- 1.3 0.8 0.8 ALKPHOS 83 < > 96 < > -- < > -- < > 89 -- 85 89 82 GLUC 317* < > 371* < > -- < > -- < > 181* -- 214* 292* 168* BUN 13 < > 25* < > -- < > -- < > 29* -- 22* 25* 28* CREAT 0.55* < > 0.72 < > -- < > -- < > 0.91 -- 0.78 0.73 0.76 NA 137 < > 137 < > -- < > -- < > 138 -- 139 139 140 K 4.7 < > 4.8 < > -- < > -- < > 4.4 -- 4.3 4.4 4.6 CHLOR 100 < > 98 < > -- < > -- < > 102 -- 103 104 105 CO2 25 < > 25 < > -- < > -- < > 21* -- 21* 22 20* ANION 12 < > 14 < > -- < > -- < > 15 -- 15 13 15 EGFROTH >60 < > >60 < > -- < > -- < > 72 -- 87 94 89 HBA1C 10.0* < > 10.2* -- -- < > -- < > 10.4* -- -- 7.9* 8.2* < > = values in this interval not displayed. Recent Labs 11/26/22 0841 03/13/23 0930 05/12/23 1059 09/27/23 1526 02/15/24 0842 06/08/24 1208 TG 266* 186* -- 620* 275* 436* CHOL 133 142 -- 161 164 211* HDL 33* 36* -- 34* 34* 33* VLDL 53* 37* -- -- 55* 57* LDL 47 69 -- -- 75 -- FASTTIME 9.5 12 -- -- 12 12 TCHDL 4.03 3.94 -- 4.74 4.82 6.39* LDLHDL 1.42 1.92 -- -- 2.21 -- NONHDL 100 106 -- 127 130* 178* HBA1C 10.0* 10.7* < > 10.4* 7.9* 8.2* HBA0 240 260 -- 252 180 189 < > = values in this interval not displayed. PAST MEDICAL HISTORY Diagnosis Date Coronary artery disease Depressive disorder, not elsewhere classified Enlarged liver Excessive or frequent menstruation 07/06/2004 s/p TVH Migraine with aura, without mention of intractable migraine without mention of status migrainosus Other anxiety states Pure hypercholesterolemia S/P primary angioplasty with coronary stent 11/06/2008 Type II or unspecified type diabetes mellitus without mention of complication, not stated as uncontrolled PAST SURGICAL HISTORY Procedure Laterality Date CARPAL TUNNEL Bilateral 03/05/2017 COLONOSCOPY FLX DX W/COLLJ SPEC WHEN PFRMD 07/19/2013 Colonoscopy EXTRACTION, ERUPTED TOOTH OR EXPOSED ROOT (ELEVATION AND/OR FORCEPS REMOVAL) wisdom teeth HEART CATHETERIZATION N/A 02/11/2022 HYSTERECTOMY HX PAST SURGICAL HISTORY OF 02/22/2002 BREAST REDUCTION PAST SURGICAL HISTORY OF 2008, 2011 stent, LAD X2. VAGINAL HYSTERECTOMY UTERUS 250 GM/< 07/2004 Hysterectomy, vaginal FAMILY HISTORY Problem Relation Age of Onset Hypertension Mother Diabetes Mother Heart Mother [place], age 72; first dx age late 60's Lipids Mother Stroke Mother Blindness Mother Hypertension Father Lipids Father Diabetes Father Social History Tobacco Use Smoking status: Former Current packs/day: 0.00 Types: Cigarettes Start date: 06/02/2017 Quit date: 06/02/2020 Years since quittin.2 Smokeless tobacco: Never Tobacco comments: social smoking for 3 years. Occasional smoking when upset Vaping Use Vaping status: Never Used Substance Use Topics Alcohol use: Yes Comment: Socially Drug use: No Current Outpatient Medications Medication Sig VITAMIN B-12 1,000 mcg TbER Take 1 tablet by mouth once daily. hydrOXYzine HCl (ATARAX) 25 mg tablet Take 1 tablet by mouth every 6 hours as needed for anxiety. gabapentin (NEURONTIN) 300 mg capsule Take 1 capsule by mouth two times a day for 180 days. LORazepam (ATIVAN) 0.5 mg Take 2 tablets by mouth two times a day for 30 days. cyclobenzaprine (FLEXERIL) 10 mg tablet Take 1 tablet by mouth three times a day as needed for muscle spasm. atenolol (TENORMIN) 100 mg tablet Take 1 tablet by mouth once daily. lisinopril (ZESTRIL) 20 mg tablet Take 1 tablet by mouth two times a day. pantoprazole DR (PROTONIX) 40 mg tablet Take 1 tablet by mouth daily before breakfast. Take on empty stomach, 1/2 hr before meal. PARoxetine (PAXIL) 10 mg tablet Take 1 tablet by mouth once daily. Take along with Paxil 40 mg tablet PARoxetine (PAXIL) 40 mg tablet Take 1 tablet by mouth once daily. evolocumab (REPATHA SURECLICK) 140 mg/mL pen injector Inject 140 mg subcutaneously every 2 weeks. (Patient not taking: Reported on 06/26/2024) meclizine (ANTIVERT) 25 mg tab Take 1 tablet by mouth three times a day as needed. atorvastatin (LIPITOR) 80 mg tablet Take 1 tablet by mouth daily at bedtime for cholesterol. glimepiride (AMARYL) 4 mg tablet Take 1 tablet by mouth two times a day with meals. Fenofibrate 40 mg tab Take 1 tablet by mouth once daily. metFORMIN (GLUCOPHAGE) 500 mg tablet Take 1 tablet by mouth two times a day with meals. empagliflozin (JARDIANCE) 25 mg tablet Take 1 tablet once daily in the morning tirzepatide (MOUNJARO) 15 mg/0.5 mL pen injector Inject 15 mg subcutaneously one time a week. cyanocobalamin (VITAMIN B-12) 1,000 mcg tab Take 1 tablet by mouth once daily. cholecalciferol (VITAMIN D-3) 5,000 unit tab Take 1 tablet by mouth once daily. Blood-Glucose Sensor ([employer] G7 SENSOR) john CHANGE SENSOR EVERY 10 days USE FOR CONTINUOUS GLUCOSE MONITORING. E11.9 nitroglycerin sublingual (NITROQUICK) 0.4 mg SL tablet Dissolve 1 tablet under the tongue as needed. FOR CHEST PAIN. IF NO RELIEF CALL 911 blood sugar diagnostic (BLOOD GLUCOSE TEST) test strip Test blood sugar(s) one times daily. Dx: Type 2 DM - Uncontrolled E11.65 Insulin: No ezetimibe (ZETIA) 10 mg tablet Take 1 tablet by mouth once daily. promethazine (PHENERGAN) 25 mg tablet Take 1 tablet by mouth every 6 hours as needed for nausea/vomiting. busPIRone (BUSPAR) 15 mg tablet Take 1 tablet by mouth three times daily. (Patient not taking: Reported on 07/05/2024) Blood-Glucose Meter Test blood sugar(s) 1 times daily. Dx: Type 2 DM - Uncontrolled Insulin: No Lancets lancets Test blood sugar(s) 1 times daily. Dx: Type 2 DM - Uncontrolled Insulin: No albuterol HFA (PROVENTIL HFA, VENTOLIN HFA) 90 mcg/actuation inhaler Inhale 2 Puffs as instructed every 4 hours as needed for wheezing/shortness of breath. diclofenac (VOLTAREN) 1 % topical gel Apply 2 g to affected area four times daily. (Patient taking differently: Apply 2 g to affected area four times daily. Pt states uses as needed) Lancets lancets Test blood sugar(s) 1 times daily. Dx: . Insulin: No aspirin 81 mg chewable tablet Take 81 mg by mouth once daily. Blood-Glucose Meter monitoring kit Glucose Meter of Choice - Kit - Dx: Type 2 DM - Uncontrolled multivitamins(DAILY MULTIVITAMIN TAB) Take one(1) tablet daily. No current facility-administered medications for this visit. ALLERGIES Allergen Reactions Penicillins Hives Percocet [Oxycodone* GI Upset Tylenol-Codeine Prerna* Other: See Comments halucinations REVIEW OF SYSTEMS - POSITIVES IN BOLD GENERAL:No weight loss, malaise or fevers HEENT:Negative for frequent or significant headaches, No changes in hearing or vision, no nose bleeds or other nasal problems NECK:Negative for lumps, goiter, pain and significant neck swelling RESPIRATORY: Negative for cough, hemoptysis, wheezing, COPD, dyspnea or shortness of breath CARDIOVASCULAR: Negative for chest pain, leg swelling, hypertension, CHF or palpitations PHYSICAL EXAMINATION: BP 128/72 (BP Site: Right Arm, BP Position: Sitting, BP Cuff Size: Regular Adult) Pulse 77 Resp 20 Ht 152.4 cm (5') Wt 86 kg (189 lb 9.6 oz) SpO2 96% BMI 37.03 kg/m GENERAL: alert and appropriate, in no distress and well-hydrated, well nourished SKIN: no rash noted HEAD: normocephalic, no abnormality or lesion noted EYES: pupil sizes are equal NECK: no obvious neck swelling or mass ACANTHOSIS: none noted EXTREMITIES: normal NEUROLOGIC: no facial droop, speech is clear and fluent and no obvious deficit ASSESSMENT/PLAN (E11.9) Diabetes mellitus, non-insulin dependent (NIDDM or type II) ([facility]) (primary encounter diagnosis) Comment: In office A1C obtained for visit today 8.2% WILL INCREASE METFORMIN 500 to 2 tabs BID No changes to remainder of DM meds, patient is maxed on current oral meds CONT with B12 and Vit D3 Declines to start basal insulin 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 Adequate hydration - 1/2 body wgt in oz of water daily, unless fluid restriction applies. I instructed the patient to monitor blood sugars 4 times per day If blood sugars are persistently high or low, to call our office. Patient to continue to follow up with her PCP and with other consultants regarding her other medical problems. Plan: A1C POC Verónica Luis CNP documented in this encounter [facility] 09-06-2024 Note HNO ID: [id number] Author: VERÓNICA LUIS APRN.FIDEL Service: ? Author Type: Nurse Practitioner Type: Progress Notes Filed: 09/06/2024 09:39 Note Text: OFFICE VISIT PROGRESS NOTE CC Camila Harmon is a 63 year old who presents today for blood sugar review, DM med dose review, adjust. HPI PATIENT OF [facility]IDEL GUEVARA ENDOCRINE Diagnosed with diabetes mellitus type II, ~ 2005 Last endocrine OV Some elements copied from my note 08/10/2023 which have been updated where appropriate, and all reflect current medical decision making from date of this visit. 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 Kevin, 02/2024 - is due later this year, normal exam Last Podiatry Exam: Cardiorespiratory: negative, denies chest pain, pressure Claudication: no Dyslipidemia: Yes, controlled on medication High Blood Pressure: Yes, controlled on medication CURRENT LABS -- IN OFFICE A1C obtained for today's visit HEMOGLOBIN A1C Component Ref Range AND Units 3 mo ago (06/08/24) 6 mo ago (02/15/24) 11 mo ago (09/27/23) 1 yr ago (03/13/23) 1 yr ago (11/26/22) 2 yr ago (08/24/22) 2 yr ago (05/15/22) Hemoglobin A1C 4.3 - 5.6 % 8.2 High 7.9 High CM 10.4 High CM 10.7 High CM Latest Ref Rng 02/15/2024 Hemoglobin A1C 4.3 - 5.6 % 7.9 (H) Estimated Average Glucose mg/dL 180 Legend: (H) High Recent Labs 11/24/19 1029 03/18/20 1013 03/10/21 0905 04/17/21 1924 04/29/21 1510 06/30/21 0942 08/24/22 0807 09/16/22 0851 09/27/23 1526 09/29/23 1514 10/07/23 1827 02/15/24 0842 06/08/24 1208 ALT 26 < > 25 < > -- < > -- < > 29 -- 22 23 25 AST 26 < > 15 < > -- < > -- < > 21 -- -- 15 17 UCRR -- -- -- -- 191.6 -- 182.2 -- -- 54.9 -- -- -- UALBR -- -- -- -- 26.6 -- 43.8 -- -- <12.0 -- -- -- UALBCR -- -- -- -- 14 -- 24 -- -- <22 -- -- -- TSH 1.580 -- 1.090 -- -- -- -- -- -- -- -- -- -- TPROT 6.9 < > 7.3 < > -- < > -- < > 7.1 -- 7.0 6.9 7.2 ALB 4.1 < > 4.4 < > -- < > -- < > 4.4 -- 4.3 4.3 4.2 CA 9.4 < > 9.9 < > -- < > -- < > 9.7 -- 9.3 9.3 9.5 TBILI 1.0 < > 0.9 < > -- < > -- < > 1.2 -- 1.3 0.8 0.8 ALKPHOS 83 < > 96 < > -- < > -- < > 89 -- 85 89 82 GLUC 317* < > 371* < > -- < > -- < > 181* -- 214* 292* 168* BUN 13 < > 25* < > -- < > -- < > 29* -- 22* 25* 28* CREAT 0.55* < > 0.72 < > -- < > -- < > 0.91 -- 0.78 0.73 0.76 NA 137 < > 137 < > -- < > -- < > 138 -- 139 139 140 K 4.7 < > 4.8 < > -- < > -- < > 4.4 -- 4.3 4.4 4.6 CHLOR 100 < > 98 < > -- < > -- < > 102 -- 103 104 105 CO2 25 < > 25 < > -- < > -- < > 21* -- 21* 22 20* ANION 12 < > 14 < > -- < > -- < > 15 -- 15 13 15 EGFROTH >60 < > >60 < > -- < > -- < > 72 -- 87 94 89 HBA1C 10.0* < > 10.2* -- -- < > -- < > 10.4* -- -- 7.9* 8.2* < > = values in this interval not displayed. Recent Labs 11/26/22 0841 03/13/23 0930 05/12/23 1059 09/27/23 1526 02/15/24 0842 06/08/24 1208 TG 266* 186* -- 620* 275* 436* CHOL 133 142 -- 161 164 211* HDL 33* 36* -- 34* 34* 33* VLDL 53* 37* -- -- 55* 57* LDL 47 69 -- -- 75 -- FASTTIME 9.5 12 -- -- 12 12 TCHDL 4.03 3.94 -- 4.74 4.82 6.39* LDLHDL 1.42 1.92 -- -- 2.21 -- NONHDL 100 106 -- 127 130* 178* HBA1C 10.0* 10.7* < > 10.4* 7.9* 8.2* HBA0 240 260 -- 252 180 189 < > = values in this interval not displayed. PAST MEDICAL HISTORY Diagnosis Date Coronary artery disease Depressive disorder, not elsewhere classified Enlarged liver Excessive or frequent menstruation 07/06/2004 s/p TVH Migraine with aura, without mention of intractable migraine without mention of status migrainosus Other anxiety states Pure hypercholesterolemia S/P primary angioplasty with coronary stent 11/06/2008 Type II or unspecified type diabetes mellitus without mention of complication, not stated as uncontrolled PAST SURGICAL HISTORY Procedure Laterality Date CARPAL TUNNEL Bilateral 03/05/2017 COLONOSCOPY FLX DX W/COLLJ SPEC WHEN PFRMD 07/19/2013 Colonoscopy EXTRACTION, ERUPTED TOOTH OR EXPOSED ROOT (ELEVATION AND/OR FORCEPS REMOVAL) wisdom teeth HEART CATHETERIZATION N/A 02/11/2022 HYSTER (more content not included)... [facility] 09-01-2024 Telephone encounter Note Notified via [email or web address] that rx was sent to pharmacy. Kaleigh Dudley MA [facility] 09-01-2024 Miscellaneous Notes Notified via [email or web address] that rx was sent to pharmacy. Kaleigh Dudley MA Called and left a voicemail for the Patient to call back and ask for a nurse to receive the providers message. Jen Aldana RN OK to refill as ordered Emily Wang MD Patient calls to request refill of Diflucan or recurrent yeast infection. No recent antibiotics. Pended as requested. Last OV: 07/06/2024 Next OV: 09/14/2024 Olga Samayoa RN documented in this encounter [facility] 09-01-2024 Telephone encounter Note Called and left a voicemail for the Patient to call back and ask for a nurse to receive the providers message. Jen Aldana RN [facility] 09-01-2024 Telephone encounter Note OK to refill as ordered Emily Wang MD [facility] 08-31-2024 Telephone encounter Note Patient calls to request refill of Diflucan or recurrent yeast infection. No recent antibiotics. Pended as requested. Last OV: 07/06/2024 Next OV: 09/14/2024 Olga Samayoa RN [facility] 08-07-2024 Telephone encounter Note Patient has been identified by name and date of : Yes Last office visit in this department: 08/11/2023 RX INSTRUCTIONS: Patient aware RX will be sent to pharmacy. No need to notify patient. Patient phones requesting refills as follows: Requested Prescriptions Pending Prescriptions Disp Refills VITAMIN B-12 1,000 mcg TbER [Pharmacy Med Name: Vitamin B-12 ER 1,000 mcg tablet,extended release] 90 tablet 3 Sig: Take 1 tablet by mouth once daily. Please review and advise. Frank Ram LPN [facility] 08-07-2024 Miscellaneous Notes Patient has been identified by name and date of : Yes Last office visit in this department: 08/11/2023 RX INSTRUCTIONS: Patient aware RX will be sent to pharmacy. No need to notify patient. Patient phones requesting refills as follows: Requested Prescriptions Pending Prescriptions Disp Refills VITAMIN B-12 1,000 mcg TbER [Pharmacy Med Name: Vitamin B-12 ER 1,000 mcg tablet,extended release] 90 tablet 3 Sig: Take 1 tablet by mouth once daily. Please review and advise. Frank Ram LPN documented in this encounter [facility] 07-07-2024 Telephone encounter Note Please see encounter from 06/09/2024. End encounter [facility] 07-07-2024 Miscellaneous Notes Please see encounter from 06/09/2024. End encounter Patient calling stating that the Repatha is to expensive and she can not afford it. She is wondering if there is something else. Please contact patient at [phone] documented in this encounter [facility] 07-07-2024 Telephone encounter Note Patient calling stating that the Repatha is to expensive and she can not afford it. She is wondering if there is something else. Please contact patient at [phone] [facility] 07-06-2024 History of Present illness Narrative Chief Complaint Patient presents with: Follow Up HPI Camila Harmon is a 63 year old female who presents here today for follow up. Pt was seen 06/26/24 for shingles to left side abdomen and lower back. She was treated with Valacyclovir 1 mg three times a day for 7 days, Hydroxyzine for the itching 1 pill every 6 hours prn and Gabapentin 300 mg 1 pill BID for burning pain. Pt states that she is still having a lot of itching and is not sure if it is still the shingles or if she is having reaction to medications. She describes the itching as a tingling sensation all over the body. Pt states that she felt her balance and gait were not good while on the medications to treat shingles. She denies any new foods, soaps, or detergents. 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 Past medical history, appointments, medications, allergies reviewed. Previous Medical History PAST MEDICAL HISTORY Diagnosis Date Coronary artery disease Depressive disorder, not elsewhere classified Enlarged liver Excessive or frequent menstruation 07/06/2004 s/p TVH Migraine with aura, without mention of intractable migraine without mention of status migrainosus Other anxiety states Pure hypercholesterolemia S/P primary angioplasty with coronary stent 11/06/2008 Type II or unspecified type diabetes mellitus without mention of complication, not stated as uncontrolled Previous Surgical History PAST SURGICAL HISTORY Procedure Laterality Date CARPAL TUNNEL Bilateral 03/05/2017 COLONOSCOPY FLX DX W/COLLJ SPEC WHEN PFRMD 07/19/2013 Colonoscopy EXTRACTION, ERUPTED TOOTH OR EXPOSED ROOT (ELEVATION AND/OR FORCEPS REMOVAL) wisdom teeth HEART CATHETERIZATION N/A 02/11/2022 HYSTERECTOMY HX PAST SURGICAL HISTORY OF 02/22/2002 BREAST REDUCTION PAST SURGICAL HISTORY OF 2008, 2011 stent, LAD X2. VAGINAL HYSTERECTOMY UTERUS 250 GM/< 07/2004 Hysterectomy, vaginal Family History FAMILY HISTORY Problem Relation Age of Onset Hypertension Mother Diabetes Mother Heart Mother [place], age 72; first dx age late 60's Lipids Mother Stroke Mother Blindness Mother Hypertension Father Lipids Father Diabetes Father Patient Allergies ALLERGIES Allergen Reactions Penicillins Hives Percocet [Oxycodone* GI Upset Tylenol-Codeine Prerna* Other: See Comments halucinations Current Medications Current Outpatient Medications on File Prior to Visit Medication Sig hydrOXYzine HCl (ATARAX) 25 mg tablet Take 1 tablet by mouth every 6 hours as needed for anxiety. gabapentin (NEURONTIN) 300 mg capsule Take 1 capsule by mouth two times a day for 180 days. LORazepam (ATIVAN) 0.5 mg Take 2 tablets by mouth two times a day for 30 days. cyclobenzaprine (FLEXERIL) 10 mg tablet Take 1 tablet by mouth three times a day as needed for muscle spasm. atenolol (TENORMIN) 100 mg tablet Take 1 tablet by mouth once daily. lisinopril (ZESTRIL) 20 mg tablet Take 1 tablet by mouth two times a day. pantoprazole DR (PROTONIX) 40 mg tablet Take 1 tablet by mouth daily before breakfast. Take on empty stomach, 1/2 hr before meal. PARoxetine (PAXIL) 10 mg tablet Take 1 tablet by mouth once daily. Take along with Paxil 40 mg tablet PARoxetine (PAXIL) 40 mg tablet Take 1 tablet by mouth once daily. evolocumab (REPATHA SURECLICK) 140 mg/mL pen injector Inject 140 mg subcutaneously every 2 weeks. (Patient not taking: Reported on 06/26/2024) meclizine (ANTIVERT) 25 mg tab Take 1 tablet by mouth three times a day as needed. atorvastatin (LIPITOR) 80 mg tablet Take 1 tablet by mouth daily at bedtime for cholesterol. glimepiride (AMARYL) 4 mg tablet Take 1 tablet by mouth two times a day with meals. Fenofibrate 40 mg tab Take 1 tablet by mouth once daily. metFORMIN (GLUCOPHAGE) 500 mg tablet Take 1 tablet by mouth two times a day with meals. empagliflozin (JARDIANCE) 25 mg tablet Take 1 tablet once daily in the morning tirzepatide (MOUNJARO) 15 mg/0.5 mL pen injector Inject 15 mg subcutaneously one time a week. cyanocobalamin (VITAMIN B-12) 1,000 mcg tab Take 1 tablet by mouth once daily. cholecalciferol (VITAMIN D-3) 5,000 unit tab Take 1 tablet by mouth once daily. Blood-Glucose Sensor ([employer] [place] G7 SENSOR) john CHANGE SENSOR EVERY 10 days USE FOR CONTINUOUS GLUCOSE MONITORING. E11.9 magnesium oxide (MAG-OX) 400 mg (241.3 mg magnesium) tablet Take 1 tablet by mouth two times a day. nitroglycerin sublingual (NITROQUICK) 0.4 mg SL tablet Dissolve 1 tablet under the tongue as needed. FOR CHEST PAIN. IF NO RELIEF CALL 911 blood sugar diagnostic (BLOOD GLUCOSE TEST) test strip Test blood sugar(s) one times daily. Dx: Type 2 DM - Uncontrolled Insulin: No ezetimibe (ZETIA) 10 mg tablet Take 1 tablet by mouth once daily. promethazine (PHENERGAN) 25 mg tablet Take 1 tablet by mouth every 6 hours as needed for nausea/vomiting. busPIRone (BUSPAR) 15 mg tablet Take 1 tablet by mouth three times daily. (Patient not taking: Reported on 07/05/2024) Blood-Glucose Meter Test blood sugar(s) 1 times daily. Dx: Type 2 DM - Uncontrolled . Insulin: No Lancets lancets Test blood sugar(s) 1 times daily. Dx: Type 2 DM - Uncontrolled . Insulin: No albuterol HFA (PROVENTIL HFA, VENTOLIN HFA) 90 mcg/actuation inhaler Inhale 2 Puffs as instructed every 4 hours as needed for wheezing/shortness of breath. (Patient not taking: Reported on 07/05/2024) diclofenac (VOLTAREN) 1 % topical gel Apply 2 g to affected area four times daily. (Patient taking differently: Apply 2 g to affected area four times daily. Pt states uses as needed) Lancets lancets Test blood sugar(s) 1 times daily. Dx: E11.65. Insulin: No aspirin 81 mg chewable tablet Take 81 mg by mouth once daily. Blood-Glucose Meter monitoring kit Glucose Meter of Choice - Kit - Dx: Type 2 DM - Uncontrolled multivitamins(DAILY MULTIVITAMIN TAB) Take one(1) tablet daily. No current facility-administered medications on file prior to visit. Social History Social History Tobacco Use Smoking status: Former Current packs/day: 0.00 Types: Cigarettes Start date: 06/02/2017 Quit date: 06/02/2020 Years since quittin.0 Smokeless tobacco: Never Tobacco comments: social smoking for 3 years. Occasional smoking when upset Vaping Use Vaping status: Never Used Substance Use Topics Alcohol use: Yes Comment: Socially Drug use: No EXAM: BP 120/70 Pulse 78 Resp 18 Wt 87.3 kg (192 lb 7.4 oz) BMI 37.28 kg/m General Appearance: Well appearing, alert, in no acute distress, well-hydrated, well nourished.. Skin: helaed shingles lesions on left lower back and anterior abd; no other rashes noted. Health Maintenance List HIV Screening Never done Pneumococcal Vaccine: 50+(1 of 2 - PCV) Never done Mammogram Screening due on 04/15/2018 DTaP,Tdap,Td Vaccine(2 - Td or Tdap) due on 08/27/2019 Colorectal Cancer Screening due on 07/06/2021 RSV Vaccine(1 - Risk 60-74 years 1-dose series) Never done Dilated Retinal Exam due on 12/05/2022 Diabetic Foot Exam due on 08/26/2023 HbA1C due on 09/07/2024 Urine Albumin:Creatinine Ratio due on 09/28/2024 LDL Cholesterol due on 06/08/2025 Annual PCP Team Chronic Disease Visit due on 06/26/2025 BP Controlled (<130/80) due on 06/26/2025 Influenza Vaccine Completed Hepatitis C Screening Completed Shingrix Vaccine Completed Covid-19 Vaccine Completed Cervical Cancer Screening Discontinued Data reviewed none ASSESSMENT/PLAN: 1. Herpes zoster without complication - ICD9: 053.9, ICD10: B02.9 (primary diagnosis) - METHYLPREDNISOLONE 4 MG TABLETS IN A DOSE PACK 2. Itching - ICD9: 698.9, ICD10: L29.9 Medrol dose sher for itching; discussed effects on blood sugar - METHYLPREDNISOLONE 4 MG TABLETS IN A DOSE PACK OK to return to work Follow up prn I agree with the Chief Complaint, ROS, and Past Histories independently gathered by the clinical information support project manager and the remaining scribed note accurately describes my personal service to the patient. Medical Decision Making: Problems: Low: Acute, uncomplicated illness or injury Risk: Moderate: Drug management Medical Decision Making Level: 3 - Christ Wang MD The documentation for this note was completed by Kaleigh Dudley MA acting as scribe for Emily Wang MD. July 06, 2024 10:35 AM. Kaleigh Dudley MA documented in this encounter [facility] 07-06-2024 Note HNO ID: [id number] Author: EMILY WANG MD Service: ? Author Type: Physician Type: Progress Notes Filed: 07/06/2024 16:56 Note Text: Chief Complaint Patient presents with: Follow Up HPI Camila Harmon is a 63 year old female who presents here today for follow up. Pt was seen 06/26/24 for shingles to left side abdomen and lower back. She was treated with Valacyclovir 1 mg three times a day for 7 days, Hydroxyzine for the itching 1 pill every 6 hours prn and Gabapentin 300 mg 1 pill BID for burning pain. Pt states that she is still having a lot of itching and is not sure if it is still the shingles or if she is having reaction to medications. She describes the itching as a tingling sensation all over the body. Pt states that she felt her balance and gait were not good while on the medications to treat shingles. She denies any new foods, soaps, or detergents. 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 Past medical history, appointments, medications, allergies reviewed. Previous Medical History PAST MEDICAL HISTORY Diagnosis Date Coronary artery disease Depressive disorder, not elsewhere classified Enlarged liver Excessive or frequent menstruation 07/06/2004 s/p TVH Migraine with aura, without mention of intractable migraine without mention of status migrainosus Other anxiety states Pure hypercholesterolemia S/P primary angioplasty with coronary stent 11/06/2008 Type II or unspecified type diabetes mellitus without mention of complication, not stated as uncontrolled Previous Surgical History PAST SURGICAL HISTORY Procedure Laterality Date CARPAL TUNNEL Bilateral 03/05/2017 COLONOSCOPY FLX DX W/COLLJ SPEC WHEN PFRMD 07/19/2013 Colonoscopy EXTRACTION, ERUPTED TOOTH OR EXPOSED ROOT (ELEVATION AND/OR FORCEPS REMOVAL) wisdom teeth HEART CATHETERIZATION N/A 02/11/2022 HYSTERECTOMY HX PAST SURGICAL HISTORY OF 02/22/2002 BREAST REDUCTION PAST SURGICAL HISTORY OF 2008, 2011 stent, LAD X2. VAGINAL HYSTERECTOMY UTERUS 250 GM/< 07/2004 Hysterectomy, vaginal Family History FAMILY HISTORY Problem Relation Age of Onset Hypertension Mother Diabetes Mother Heart Mother [place], age 72; first dx age late 60's Lipids Mother Stroke Mother Blindness Mother Hypertension Father Lipids Father Diabetes Father Patient Allergies ALLERGIES Allergen Reactions Penicillins Hives Percocet [Oxycodone* GI Upset Tylenol-Codeine Prerna* Other: See Comments halucinations Current Medications Current Outpatient Medications on File Prior to Visit Medication Sig hydrOXYzine HCl (ATARAX) 25 mg tablet Take 1 tablet by mouth every 6 hours as needed for anxiety. gabapentin (NEURONTIN) 300 mg capsule Take 1 capsule by mouth two times a day for 180 days. LORazepam (ATIVAN) 0.5 mg Take 2 tablets by mouth two times a day for 30 days. cyclobenzaprine (FLEXERIL) 10 mg tablet Take 1 tablet by mouth three times a day as needed for muscle spasm. atenolol (TENORMIN) 100 mg tablet Take 1 tablet by mouth once daily. lisinopril (ZESTRIL) 20 mg tablet Take 1 tablet by mouth two times a day. pantoprazole DR (PROTONIX) 40 mg tablet Take 1 tablet by mouth daily before breakfast. Take on empty stomach, 1/2 hr before meal. PARoxetine (PAXIL) 10 mg tablet Take 1 tablet by mouth once daily. Take along with Paxil 40 mg tablet PARoxetine (PAXIL) 40 mg tablet Take 1 tablet by mouth once daily. evolocumab (REPATHA SURECLICK) 140 mg/mL pen injector Inject 140 mg subcutaneously every 2 weeks. (Patient not taking: Reported on 06/26/2024) meclizine (ANTIVERT) 25 mg tab Take 1 tablet by mouth three times a day as needed. atorvastatin (LIPITOR) 80 mg tablet Take 1 tablet by mouth daily at bedtime for cholesterol. glimepiride (AMARYL) 4 mg tablet Take 1 tablet by mouth two times a day with meals. Fenofibrate 40 mg tab Take 1 tablet by mouth once daily. metFORMIN (GLUCOPHAGE) 500 mg tablet Take 1 tablet by mouth two times a day with meals. empagliflozin (JARDIANCE) 25 mg tablet Take 1 tablet once daily in the morning tirzepatide (MOUNJARO) 15 mg/0.5 mL pen injector Inject 15 mg subcutaneously one time a week. cyanocobalamin (VITAMIN B-12) 1,000 mcg tab Take 1 tablet by mouth once daily. cholecalciferol (VITAMIN D-3) 5,000 unit tab Take 1 tablet by mouth once daily. Blood-Glucose Sensor ([employer] G7 SENSOR) john CHANGE SENSOR EVERY 10 days USE FOR CONTINUOUS GLUCOSE MONITORING. E11.9 magnesium oxide (MAG-OX) 400 mg (241.3 mg magnesium) tablet Take 1 tablet by mouth two times a day. nitroglycerin sublingual (NITROQUICK) 0.4 mg SL tablet Dissolve 1 tablet under the tongue as needed. FOR CHEST PAIN. IF NO RELIEF CALL 911 blood sugar diagnostic (BLOOD GLUCOSE TEST) test strip Test blood sugar(s) one times daily. Dx: Type 2 DM - Uncontrolled E11.65 Insulin: No ezetimibe (ZETIA) 10 mg tablet Take 1 tablet by mouth on (more content not included)... [facility] 07-05-2024 Miscellaneous Notes Pt calling in stating she saw Selene Cabrera on 06/26 and was dx with shingles. Pt states she is having burning, pain and itching all over her body. States her neck, her head, her face, her abdomen-everywhere. Pt also states she has been feeling off balance today. And states her mouth is so dry that it is hard to talk. Asked pt if she feels her speech is slurred as it sounds slightly slurred. Pt states she feels it is because her mouth is so dry. She states she has probably drank about 8-10 glasses of water today but feels she isn't urinating as often as she should. States she has only urinated 4 times since midnight with the last time being around 5 pm right before she left work and it was a moderate amount. States urine was a bright yellow in color. States because of her vitamins s that is the normal color of her urine. Pt is taking Lorazepam 0.5 mg 2 tabs every morning around 8 am and every evening around 8 pm. That is the same time she takes her Gabapentin 300 mg. Selene Cabrera also ordered pt Hydroxyzine HCL 25 mg every 6 hours as needed for itching/anxiety. Pt states she has been taking that at 8 am and 8 pm with her Lorazepam and her Gabapentin. Pt instructed to try taking these 3 meds at different times. Take her Gabapentin and Lorazepam about an hour apart and take her Hydroxyzine at completely different times than her Lorazepam. Pt instructed to take a Hydroxyzine now as she hasn't taken one since 8 am this morning. Appt made with Dr. Wang for 11 am tomorrow morning to discuss symptoms. Pt encouraged to go to ER if symptoms worsen. Pt verbalizes understanding. Went over pt's meds and a MyChart msg that pt was not aware of from 06/12. Pt is NOT taking her Repatha as she states it was going to cost her $600. She was going to check into it again. (msg sent to bessemer converter blower Dr. Hawa Padron to notify her of that). Pt notified needs to schedule a follow up with her rubber thread spooler as well. Given reminder to adhere to a low cholesterol, low saturated fat heart healthy diet. Notified of A1c results and informed to continue with current meds and work on eating a low carb diet. And notified to repeat labs in 3 months. Note to PSS to call pt and schedule her an appt with Storage Facility Housekeeper. documented in this encounter [facility] 07-05-2024 Telephone encounter Note Pt calling in stating she saw Selene Cabrera on 06/26 and was dx with shingles. Pt states she is having burning, pain and itching all over her body. States her neck, her head, her face, her abdomen-everywhere. Pt also states she has been feeling off balance today. And states her mouth is so dry that it is hard to talk. Asked pt if she feels her speech is slurred as it sounds slightly slurred. Pt states she feels it is because her mouth is so dry. She states she has probably drank about 8-10 glasses of water today but feels she isn't urinating as often as she should. States she has only urinated 4 times since midnight with the last time being around 5 pm right before she left work and it was a moderate amount. States urine was a bright yellow in color. States because of her vitamins s that is the normal color of her urine. Pt is taking Lorazepam 0.5 mg 2 tabs every morning around 8 am and every evening around 8 pm. That is the same time she takes her Gabapentin 300 mg. Selene Cabrera also ordered pt Hydroxyzine HCL 25 mg every 6 hours as needed for itching/anxiety. Pt states she has been taking that at 8 am and 8 pm with her Lorazepam and her Gabapentin. Pt instructed to try taking these 3 meds at different times. Take her Gabapentin and Lorazepam about an hour apart and take her Hydroxyzine at completely different times than her Lorazepam. Pt instructed to take a Hydroxyzine now as she hasn't taken one since 8 am this morning. Appt made with Dr. Wang for 11 am tomorrow morning to discuss symptoms. Pt encouraged to go to ER if symptoms worsen. Pt verbalizes understanding. Went over pt's meds and a MyChart msg that pt was not aware of from 06/12. Pt is NOT taking her Repatha as she states it was going to cost her $600. She was going to check into it again. (msg sent to bessemer converter blower Dr. Hawa Padron to notify her of that). Pt notified needs to schedule a follow up with her rubber thread spooler as well. Given reminder to adhere to a low cholesterol, low saturated fat heart healthy diet. Notified of A1c results and informed to continue with current meds and work on eating a low carb diet. And notified to repeat labs in 3 months. Note to PSS to call pt and schedule her an appt with Storage Facility Housekeeper. [facility] 07-03-2024 Telephone encounter Note Pt asking what cream she can use for shingles itching. Advised per protocol she can use calamine lotion, or benadryl cream. Advised benadryl can cause drowsiness. Advised to rub with ice cube for 10 min. Pt reports she is using cold compresses which help. Reports she is doing Aveeno bath, which helps. Patient agreeable to try calamine lotion. [facility] 07-03-2024 Miscellaneous Notes Pt asking what cream she can use for shingles itching. Advised per protocol she can use calamine lotion, or benadryl cream. Advised benadryl can cause drowsiness. Advised to rub with ice cube for 10 min. Pt reports she is using cold compresses which help. Reports she is doing Aveeno bath, which helps. Patient agreeable to try calamine lotion. documented in this encounter [facility] 06-26-2024 Instructions Camila Cabrera APRN.FIDEL - 06/26/2024 3:01 PM EDT - See Dr. Wang in August as scheduled - VALACYCLOVIR 1 GRAM TABLET 1 Gm 3 x day for 7 days - HYDROXYZINE HCL 25 MG TABLET up to every 6 hours for itching - GABAPENTIN 300 MG CAPSULE 2 x day for burning pain documented in this encounter [facility] 06-26-2024 Note HNO ID: [id number] Author: CAMILA CABRERA APRN.CNP Service: ? Author Type: Nurse Practitioner Type: Progress Notes Filed: 06/26/2024 15:04 Note Text: This is a 63 year old female who presents today with: Patient presents with: Rash HISTORY OF PRESENT ILLNESS: Camila Harmon is a 63 year old female. Patient presents with: Rash Pt. Started with rash that itches terrible. T 12 on left and some in that dermatome on the abdomen on left. Itches and terrell terrible. Present for 4 days Has had Shingrix vaccine X 2 Very stressed. PAST MEDICAL HISTORY: PAST MEDICAL HISTORY Diagnosis Date Coronary artery disease Depressive disorder, not elsewhere classified Enlarged liver Excessive or frequent menstruation 07/06/2004 s/p TVH Migraine with aura, without mention of intractable migraine without mention of status migrainosus Other anxiety states Pure hypercholesterolemia S/P primary angioplasty with coronary stent 11/06/2008 Type II or unspecified type diabetes mellitus without mention of complication, not stated as uncontrolled PAST SURGICAL HISTORY Procedure Laterality Date CARPAL TUNNEL Bilateral 03/05/2017 COLONOSCOPY FLX DX W/COLLJ SPEC WHEN PFRMD 07/19/2013 Colonoscopy EXTRACTION, ERUPTED TOOTH OR EXPOSED ROOT (ELEVATION AND/OR FORCEPS REMOVAL) wisdom teeth HEART CATHETERIZATION N/A 02/11/2022 HYSTERECTOMY HX PAST SURGICAL HISTORY OF 02/22/2002 BREAST REDUCTION PAST SURGICAL HISTORY OF 2008, 2011 stent, LAD X2. VAGINAL HYSTERECTOMY UTERUS 250 GM/< 07/2004 Hysterectomy, vaginal ALLERGIES Penicillins, Percocet [Oxycodone-Acetaminophen], and Tylenol-Codeine Elixir MEDICATIONS Current Outpatient Medications Medication Sig LORazepam (ATIVAN) 0.5 mg Take 2 tablets by mouth two times a day for 30 days. cyclobenzaprine (FLEXERIL) 10 mg tablet Take 1 tablet by mouth three times a day as needed for muscle spasm. atenolol (TENORMIN) 100 mg tablet Take 1 tablet by mouth once daily. lisinopril (ZESTRIL) 20 mg tablet Take 1 tablet by mouth two times a day. pantoprazole DR (PROTONIX) 40 mg tablet Take 1 tablet by mouth daily before breakfast. Take on empty stomach, 1/2 hr before meal. PARoxetine (PAXIL) 10 mg tablet Take 1 tablet by mouth once daily. Take along with Paxil 40 mg tablet PARoxetine (PAXIL) 40 mg tablet Take 1 tablet by mouth once daily. meclizine (ANTIVERT) 25 mg tab Take 1 tablet by mouth three times a day as needed. atorvastatin (LIPITOR) 80 mg tablet Take 1 tablet by mouth daily at bedtime for cholesterol. hydrOXYzine HCl (ATARAX) 25 mg tablet Take 1 tablet by mouth every 6 hours as needed for anxiety. glimepiride (AMARYL) 4 mg tablet Take 1 tablet by mouth two times a day with meals. Fenofibrate 40 mg tab Take 1 tablet by mouth once daily. metFORMIN (GLUCOPHAGE) 500 mg tablet Take 1 tablet by mouth two times a day with meals. empagliflozin (JARDIANCE) 25 mg tablet Take 1 tablet once daily in the morning tirzepatide (MOUNJARO) 15 mg/0.5 mL pen injector Inject 15 mg subcutaneously one time a week. cyanocobalamin (VITAMIN B-12) 1,000 mcg tab Take 1 tablet by mouth once daily. cholecalciferol (VITAMIN D-3) 5,000 unit tab Take 1 tablet by mouth once daily. Blood-Glucose Sensor ([employer] G7 SENSOR) john CHANGE SENSOR EVERY 10 days USE FOR CONTINUOUS GLUCOSE MONITORING. E11.9 magnesium oxide (MAG-OX) 400 mg (241.3 mg magnesium) tablet Take 1 tablet by mouth two times a day. nitroglycerin sublingual (NITROQUICK) 0.4 mg SL tablet Dissolve 1 tablet under the tongue as needed. FOR CHEST PAIN. IF NO RELIEF CALL 911 blood sugar diagnostic (BLOOD GLUCOSE TEST) test strip Test blood sugar(s) one times daily. Dx: Type 2 DM - Uncontrolled E11.65 Insulin: No ezetimibe (ZETIA) 10 mg tablet Take 1 tablet by mouth once daily. promethazine (PHENERGAN) 25 mg tablet Take 1 tablet by mouth every 6 hours as needed for nausea/vomiting. busPIRone (BUSPAR) 15 mg tablet Take 1 tablet by mouth three times daily. Blood-Glucose Meter Test blood sugar(s) 1 times daily. Dx: Type 2 DM - Uncontrolled E11.65 Insulin: No Lancets lancets Test blood sugar(s) 1 times daily. Dx: Type 2 DM - Uncontrolled E11.65 Insulin: No albuterol HFA (PROVENTIL HFA, VENTOLIN HFA) 90 mcg/actuation inhaler Inhale 2 Puffs as instructed every 4 hours as needed for wheezing/shortness of breath. diclofenac (VOLTAREN) 1 % topical gel Apply 2 g to affected area four times daily. Lancets lancets Test blood sugar(s) 1 times daily. Dx: E11.65. Insulin: No aspirin 81 mg chewable tablet Take 81 mg by mouth once daily. Blood-Glucose Meter monitoring kit Glucose Meter of Choice - Kit - Dx: Type 2 DM - Uncontrolled E11.65 multivitamins(DAILY MULTIVITAMIN TAB) Take one(1) tablet daily. evolocumab (REPATHA SURECLICK) 140 mg/mL pen injector Inject 140 mg subcutaneously every 2 weeks. (Patient not taking: Reported on 06/26/2024) gabapentin (NEURONTIN) 300 mg capsule Take (more content not included)... [facility] 06-26-2024 History of Present illness Narrative This is a 63 year old female who presents today with: Patient presents with: Rash HISTORY OF PRESENT ILLNESS: Camila Harmon is a 63 year old female. Patient presents with: Rash Pt. Started with rash that itches terrible. T 12 on left and some in that dermatome on the abdomen on left. Itches and terrell terrible. Present for 4 days Has had Shingrix vaccine X 2 Very stressed. PAST MEDICAL HISTORY: PAST MEDICAL HISTORY Diagnosis Date Coronary artery disease Depressive disorder, not elsewhere classified Enlarged liver Excessive or frequent menstruation 07/06/2004 s/p TVH Migraine with aura, without mention of intractable migraine without mention of status migrainosus Other anxiety states Pure hypercholesterolemia S/P primary angioplasty with coronary stent 11/06/2008 Type II or unspecified type diabetes mellitus without mention of complication, not stated as uncontrolled PAST SURGICAL HISTORY Procedure Laterality Date CARPAL TUNNEL Bilateral 03/05/2017 COLONOSCOPY FLX DX W/COLLJ SPEC WHEN PFRMD 07/19/2013 Colonoscopy EXTRACTION, ERUPTED TOOTH OR EXPOSED ROOT (ELEVATION AND/OR FORCEPS REMOVAL) wisdom teeth HEART CATHETERIZATION N/A 02/11/2022 HYSTERECTOMY HX PAST SURGICAL HISTORY OF 02/22/2002 BREAST REDUCTION PAST SURGICAL HISTORY OF 2008, 2011 stent, LAD X2. VAGINAL HYSTERECTOMY UTERUS 250 GM/< 07/2004 Hysterectomy, vaginal ALLERGIES Penicillins, Percocet [Oxycodone-Acetaminophen], and Tylenol-Codeine Elixir MEDICATIONS Current Outpatient Medications Medication Sig LORazepam (ATIVAN) 0.5 mg Take 2 tablets by mouth two times a day for 30 days. cyclobenzaprine (FLEXERIL) 10 mg tablet Take 1 tablet by mouth three times a day as needed for muscle spasm. atenolol (TENORMIN) 100 mg tablet Take 1 tablet by mouth once daily. lisinopril (ZESTRIL) 20 mg tablet Take 1 tablet by mouth two times a day. pantoprazole DR (PROTONIX) 40 mg tablet Take 1 tablet by mouth daily before breakfast. Take on empty stomach, 1/2 hr before meal. PARoxetine (PAXIL) 10 mg tablet Take 1 tablet by mouth once daily. Take along with Paxil 40 mg tablet PARoxetine (PAXIL) 40 mg tablet Take 1 tablet by mouth once daily. meclizine (ANTIVERT) 25 mg tab Take 1 tablet by mouth three times a day as needed. atorvastatin (LIPITOR) 80 mg tablet Take 1 tablet by mouth daily at bedtime for cholesterol. hydrOXYzine HCl (ATARAX) 25 mg tablet Take 1 tablet by mouth every 6 hours as needed for anxiety. glimepiride (AMARYL) 4 mg tablet Take 1 tablet by mouth two times a day with meals. Fenofibrate 40 mg tab Take 1 tablet by mouth once daily. metFORMIN (GLUCOPHAGE) 500 mg tablet Take 1 tablet by mouth two times a day with meals. empagliflozin (JARDIANCE) 25 mg tablet Take 1 tablet once daily in the morning tirzepatide (MOUNJARO) 15 mg/0.5 mL pen injector Inject 15 mg subcutaneously one time a week. cyanocobalamin (VITAMIN B-12) 1,000 mcg tab Take 1 tablet by mouth once daily. cholecalciferol (VITAMIN D-3) 5,000 unit tab Take 1 tablet by mouth once daily. Blood-Glucose Sensor ([employer] [place] G7 SENSOR) john CHANGE SENSOR EVERY 10 days USE FOR CONTINUOUS GLUCOSE MONITORING. E11.9 magnesium oxide (MAG-OX) 400 mg (241.3 mg magnesium) tablet Take 1 tablet by mouth two times a day. nitroglycerin sublingual (NITROQUICK) 0.4 mg SL tablet Dissolve 1 tablet under the tongue as needed. FOR CHEST PAIN. IF NO RELIEF CALL 911 blood sugar diagnostic (BLOOD GLUCOSE TEST) test strip Test blood sugar(s) one times daily. Dx: Type 2 DM - Uncontrolled E11.65 Insulin: No ezetimibe (ZETIA) 10 mg tablet Take 1 tablet by mouth once daily. promethazine (PHENERGAN) 25 mg tablet Take 1 tablet by mouth every 6 hours as needed for nausea/vomiting. busPIRone (BUSPAR) 15 mg tablet Take 1 tablet by mouth three times daily. Blood-Glucose Meter Test blood sugar(s) 1 times daily. Dx: Type 2 DM - Uncontrolled E11.65 Insulin: No Lancets lancets Test blood sugar(s) 1 times daily. Dx: Type 2 DM - Uncontrolled E11.65 Insulin: No albuterol HFA (PROVENTIL HFA, VENTOLIN HFA) 90 mcg/actuation inhaler Inhale 2 Puffs as instructed every 4 hours as needed for wheezing/shortness of breath. diclofenac (VOLTAREN) 1 % topical gel Apply 2 g to affected area four times daily. Lancets lancets Test blood sugar(s) 1 times daily. Dx: E11.65. Insulin: No aspirin 81 mg chewable tablet Take 81 mg by mouth once daily. Blood-Glucose Meter monitoring kit Glucose Meter of Choice - Kit - Dx: Type 2 DM - Uncontrolled E11.65 multivitamins(DAILY MULTIVITAMIN TAB) Take one(1) tablet daily. evolocumab (REPATHA SURECLICK) 140 mg/mL pen injector Inject 140 mg subcutaneously every 2 weeks. (Patient not taking: Reported on 06/26/2024) gabapentin (NEURONTIN) 300 mg capsule Take 1 capsule by mouth two times a day for 180 days. No current facility-administered medications for this visit. FAMILY HISTORY Problem Relation Age of Onset Hypertension Mother Diabetes Mother Heart Mother [place], age 72; first dx age late 60's Lipids Mother Stroke Mother Blindness Mother Hypertension Father Lipids Father Diabetes Father Social History Tobacco Use Smoking status: Former Current packs/day: 0.00 Types: Cigarettes Start date: 06/02/2017 Quit date: 06/02/2020 Years since quittin.0 Smokeless tobacco: Never Tobacco comments: social smoking for 3 years. Occasional smoking when upset Vaping Use Vaping status: Never Used Substance Use Topics Alcohol use: Yes Comment: Socially Drug use: No EXAM: BP 128/70 Pulse 85 Temp 36.3 C (97.3 F) (Left Tympanic) Wt 88 kg (194 lb) SpO2 93% BMI 37.57 kg/m PHYSICAL EXAM: Physical Exam Vitals reviewed. Constitutional: Appearance: Normal appearance. Cardiovascular: Rate and Rhythm: Normal rate and regular rhythm. Pulses: Normal pulses. Heart sounds: Normal heart sounds. Pulmonary: Effort: Pulmonary effort is normal. Breath sounds: Normal breath sounds. Musculoskeletal: General: Normal range of motion. Comments: Walks w/o assistive device, moves all ext. Without difficulty Skin: General: Skin is warm and dry. Comments: Right T 12- L 1 radicular Sx on left side- itches, terrell, raised pustules Neurological: Mental Status: She is alert. LABS: ASSESSMENT/PLAN: 1. Herpes zoster without complication - ICD9: 053.9, ICD10: B02.9 (primary diagnosis) T 12 - L 1 left dermatomal - VALACYCLOVIR 1 GRAM TABLET - HYDROXYZINE HCL 25 MG TABLET - GABAPENTIN 300 MG CAPSULE 2. Sciatica, right side - ICD9: 724.3, ICD10: M54.31 Sciatica Continue gabapentin - GABAPENTIN 300 MG CAPSULE Discussed treatment plan and patient voices understanding. Patient's questions answered appropriately. Medications and potential side effects were discussed and patient voices understanding. No previous contact with head circumference data on file. Camila Cabrera APRN.SHIPPING ORDER CLERK documented in this encounter [facility] 06-13-2024 Note Patient Outreach (FA MPWS) CAMILA HARMON ([id number]) 1960 F Date Time Provider Department 06/13/24 EMILY WANG During your visit today, we recorded the following information about you: Allergies As of Date: 06/13/2024 Noted Allergy Reaction PENICILLINS 06/29/2005 4 - Hives PERCOCET (OXYCODONE-ACETAMINOPHEN) 8 8 - GI Upset TYLENOL-CODEINE ELIXIR 05/21/2010 14 - Other: See Comments Comments: halucmadalyn Date Reviewed: 06/12/2024 Reviewed by: Edith Chavira MA - Fully Assessed Visit Diagnosis:Encounter for screening mammogram for breast cancer [Z12.31] Order(s):OSIEL SCREENING W ALEXIS [[id number]] Order #: [id number] FUTURE Prescriptions as of 07/14/2024 - VITAMIN B-12 1,000 mcg TbER Take 1 tablet by mouth once daily. - hydrOXYzine HCl (ATARAX) 25 mg tablet Take 1 tablet by mouth every 6 hours as needed for anxiety. - gabapentin (NEURONTIN) 300 mg capsule Take 1 capsule by mouth two times a day for 180 days. - LORazepam (ATIVAN) 0.5 mg Take 2 tablets by mouth two times a day for 30 days. - cyclobenzaprine (FLEXERIL) 10 mg tablet Take 1 tablet by mouth three times a day as needed for muscle spasm. - atenolol (TENORMIN) 100 mg tablet Take 1 tablet by mouth once daily. - lisinopril (ZESTRIL) 20 mg tablet Take 1 tablet by mouth two times a day. - pantoprazole DR (PROTONIX) 40 mg tablet Take 1 tablet by mouth daily before breakfast. Take on empty stomach, 1/2 hr before meal. - PARoxetine (PAXIL) 10 mg tablet Take 1 tablet by mouth once daily. Take along with Paxil 40 mg tablet - PARoxetine (PAXIL) 40 mg tablet Take 1 tablet by mouth once daily. - evolocumab (REPATHA SURECLICK) 140 mg/mL pen injector Inject 140 mg subcutaneously every 2 weeks. - meclizine (ANTIVERT) 25 mg tab Take 1 tablet by mouth three times a day as needed. - atorvastatin (LIPITOR) 80 mg tablet Take 1 tablet by mouth daily at bedtime for cholesterol. - glimepiride (AMARYL) 4 mg tablet Take 1 tablet by mouth two times a day with meals. - Fenofibrate 40 mg tab Take 1 tablet by mouth once daily. - metFORMIN (GLUCOPHAGE) 500 mg tablet Take 1 tablet by mouth two times a day with meals. - empagliflozin (JARDIANCE) 25 mg tablet Take 1 tablet once daily in the morning - tirzepatide (MOUNJARO) 15 mg/0.5 mL pen injector Inject 15 mg subcutaneously one time a week. - cyanocobalamin (VITAMIN B-12) 1,000 mcg tab Take 1 tablet by mouth once daily. - cholecalciferol (VITAMIN D-3) 5,000 unit tab Take 1 tablet by mouth once daily. - Blood-Glucose Sensor ([employer] G7 SENSOR) john CHANGE SENSOR EVERY 10 days USE FOR CONTINUOUS GLUCOSE MONITORING. E11.9 - nitroglycerin sublingual (NITROQUICK) 0.4 mg SL tablet Dissolve 1 tablet under the tongue as needed. FOR CHEST PAIN. IF NO RELIEF CALL 911 - blood sugar diagnostic (BLOOD GLUCOSE TEST) test strip Test blood sugar(s) one times daily. Dx: Type 2 DM - Uncontrolled E11.65 Insulin: No - ezetimibe (ZETIA) 10 mg tablet Take 1 tablet by mouth once daily. - promethazine (PHENERGAN) 25 mg tablet Take 1 tablet by mouth every 6 hours as needed for nausea/vomiting. - busPIRone (BUSPAR) 15 mg tablet Take 1 tablet by mouth three times daily. - Blood-Glucose Meter Test blood sugar(s) 1 times daily. Dx: Type 2 DM - Uncontrolled E11. Insulin: No - Lancets lancets Test blood sugar(s) 1 times daily. Dx: Type 2 DM - Uncontrolled E1165 Insulin: No - albuterol HFA (PROVENTIL HFA, VENTOLIN HFA) 90 mcg/actuation inhaler Inhale 2 Puffs as instructed every 4 hours as needed for wheezing/shortness of breath. - diclofenac (VOLTAREN) 1 % topical gel Apply 2 g to affected area four times daily. - Lancets lancets Test blood sugar(s) 1 times daily. Dx: E11.65. Insulin: No - aspirin 81 mg chewable tablet Take 81 mg by mouth once daily. - Blood-Glucose Meter monitoring kit Glucose Meter of Choice - Kit - Dx: Type 2 DM - Uncontrolled - multivitamins(DAILY MULTIVITAMIN TAB) Take one(1) tablet daily. Meds Comments as of 11/08/2023: November 08, 2023: Patient reports starting Diflucan in the last 30 days. Janeth Jennings RN 08/22/2019: No longer taking metformin. Ghislaine Austin RN (Nurse svp research & ebusiness operations). Also takes Paxil and a vitamin 1-1 S. KAUSHAL Bowman Problem List As Of Date 06/13/2024 Noted Resolved Routine gynecological examination [Z01.419] 07/27/2007 02/05/2017 Class: Chronic PERS HX PENICILLIN ALLERGY [Z88.0] 07/27/2007 Pure hypercholesterolemia [E78.00] Anxiety [F41.9] CLASS MIGRAIN W/O MENTN INTRACTABLE [G43.109] Diabetes mellitus, non-insulin dependent (NIDDM*07/27/2007 Class 1 obesity due to excess calories with ser*07/27/2007 UNSOCIAL AGGRESS-UNSPEC [F91.1] 08/10/2007 Obstructive sleep apnea [G47.33] 08/31/2007 CARPAL TUNNEL SYNDROME [G56.00] 08/31/2007 Coronary atherosclerosis [I25.10] 09/17/2008 Postsurgical percutaneous t (more content not included)... [facility] 06-12-2024 History of Present illness Narrative Chief Complaint Patient presents with: Fibromyalgia Medication Follow-up HPI Camila Harmon is a 63 year old female who presents here today for follow up and new problem. Pt c/o body aches all over and a feeling of being squishy. A lot of the pain is located in neck, upper shoulder and upper back area. This has been ongoing for the past couple weeks. She has been taking up to 9 Tylenol per day for pain relief and is seeking a new prescription for a muscle relaxer, specifically Flexeril, which she has not tried before. She has also been using a topical lotion containing wintergreen, eucalyptus, and camphor, which provides some relief after an initial Requesting refill of Flexeril 10 mg 1 tab po TID prn. Hx of anxiety and depression. Is on current regimen of Paxil 10 +40 mg daily, Buspar 15 mg TID and Ativan 0.5 mg 2 tabs po bid. Pt has been referred to Psych, appt's with Samra pelayo and pt has no showed them. Pt reports she's forgotten them due to being so busy at work. GI - Takes Protonix 40 mg once daily, stable. DM - Checking sugars at home, maybe twice a week. Denies lows or neuropathy symptoms. On current regimen of Mounjaro 15 mg once weekly, Jardiance 25 mg once daily, Amaryl 4 mg once daily, and Metformin 500 mg 1 tab po bid. HTN - Denies checking BP at home or having symptoms of chest pain or sob. Notes dizziness. On current regimen of Lisinopril 20 mg 1 tab po bid and Atenolol 100 mg once daily. Lipids - Tries to watch diet. Denies any formal exercise but only at work. On current regimen of Lipitor 80 mg once daily, Fenofibrate 40 mg once daily and Zetia 10 mg once daily. Camila also reports xerostomia for the past 3 days, despite increasing her water intake and adding lemon to her water. She is currently taking Mounjaro 15 mg, metformin BID, glimepiride, Zetia, Repatha, and Jardiance. Recent lab work showed an A1c of 8.2 and a blood glucose level of 168 mg/dL, which is an improvement from previous readings. 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 She mentions feeling tired even after a full night's sleep and taking naps after work. She also experiences episodes of dissociation, where she does not remember how she arrived at a destination while driving. She is currently taking lorazepam for anxiety. Past medical history, appointments, medications, allergies reviewed. Previous Medical History PAST MEDICAL HISTORY Diagnosis Date Coronary artery disease Depressive disorder, not elsewhere classified Enlarged liver Excessive or frequent menstruation 07/06/2004 s/p TVH Migraine with aura, without mention of intractable migraine without mention of status migrainosus Other anxiety states Pure hypercholesterolemia S/P primary angioplasty with coronary stent 11/06/2008 Type II or unspecified type diabetes mellitus without mention of complication, not stated as uncontrolled Previous Surgical History PAST SURGICAL HISTORY Procedure Laterality Date CARPAL TUNNEL Bilateral 03/05/2017 COLONOSCOPY FLX DX W/COLLJ SPEC WHEN PFRMD 07/19/2013 Colonoscopy EXTRACTION, ERUPTED TOOTH OR EXPOSED ROOT (ELEVATION AND/OR FORCEPS REMOVAL) wisdom teeth HEART CATHETERIZATION N/A 02/11/2022 HYSTERECTOMY HX PAST SURGICAL HISTORY OF 02/22/2002 BREAST REDUCTION PAST SURGICAL HISTORY OF 2008, 2011 stent, LAD X2. VAGINAL HYSTERECTOMY UTERUS 250 GM/< 07/2004 Hysterectomy, vaginal Family History FAMILY HISTORY Problem Relation Age of Onset Hypertension Mother Diabetes Mother Heart Mother [place], age 72; first dx age late 60's Lipids Mother Stroke Mother Blindness Mother Hypertension Father Lipids Father Diabetes Father Patient Allergies ALLERGIES Allergen Reactions Penicillins Hives Percocet [Oxycodone* GI Upset Tylenol-Codeine Prerna* Other: See Comments halucinations Current Medications Current Outpatient Medications on File Prior to Visit Medication Sig atenolol (TENORMIN) 100 mg tablet Take 1 tablet by mouth once daily. lisinopril (ZESTRIL) 20 mg tablet Take 1 tablet by mouth two times a day. pantoprazole DR (PROTONIX) 40 mg tablet Take 1 tablet by mouth daily before breakfast. Take on empty stomach, 1/2 hr before meal. PARoxetine (PAXIL) 10 mg tablet Take 1 tablet by mouth once daily. Take along with Paxil 40 mg tablet PARoxetine (PAXIL) 40 mg tablet Take 1 tablet by mouth once daily. evolocumab (REPATHA SURECLICK) 140 mg/mL pen injector Inject 140 mg subcutaneously every 2 weeks. meclizine (ANTIVERT) 25 mg tab Take 1 tablet by mouth three times a day as needed. atorvastatin (LIPITOR) 80 mg tablet Take 1 tablet by mouth daily at bedtime for cholesterol. LORazepam (ATIVAN) 0.5 mg Take 2 tablets by mouth two times a day for 30 days. hydrOXYzine HCl (ATARAX) 25 mg tablet Take 1 tablet by mouth every 6 hours as needed for anxiety. glimepiride (AMARYL) 4 mg tablet Take 1 tablet by mouth two times a day with meals. Fenofibrate 40 mg tab Take 1 tablet by mouth once daily. metFORMIN (GLUCOPHAGE) 500 mg tablet Take 1 tablet by mouth two times a day with meals. empagliflozin (JARDIANCE) 25 mg tablet Take 1 tablet once daily in the morning tirzepatide (MOUNJARO) 15 mg/0.5 mL pen injector Inject 15 mg subcutaneously one time a week. cyanocobalamin (VITAMIN B-12) 1,000 mcg tab Take 1 tablet by mouth once daily. cholecalciferol (VITAMIN D-3) 5,000 unit tab Take 1 tablet by mouth once daily. esomeprazole (NEXIUM) 20 mg capsule Take 20 mg by mouth daily at 6 am. Blood-Glucose Sensor ([employer] G7 SENSOR) john CHANGE SENSOR EVERY 10 days USE FOR CONTINUOUS GLUCOSE MONITORING. E11.9 ondansetron orally disintegrating (ZOFRAN ODT) 4 mg disintegrating tablet Take 1 tablet by mouth every 6 hours as needed for nausea/vomiting. gabapentin (NEURONTIN) 300 mg capsule Take 1 capsule by mouth two times a day for 180 days. magnesium oxide (MAG-OX) 400 mg (241.3 mg magnesium) tablet Take 1 tablet by mouth two times a day. nitroglycerin sublingual (NITROQUICK) 0.4 mg SL tablet Dissolve 1 tablet under the tongue as needed. FOR CHEST PAIN. IF NO RELIEF CALL 911 blood sugar diagnostic (BLOOD GLUCOSE TEST) test strip Test blood sugar(s) one times daily. Dx: Type 2 DM - Uncontrolled E11.65 Insulin: No ezetimibe (ZETIA) 10 mg tablet Take 1 tablet by mouth once daily. cyclobenzaprine (FLEXERIL) 10 mg tablet Take 1 tablet by mouth three times daily as needed for muscle spasm. promethazine (PHENERGAN) 25 mg tablet Take 1 tablet by mouth every 6 hours as needed for nausea/vomiting. busPIRone (BUSPAR) 15 mg tablet Take 1 tablet by mouth three times daily. Blood-Glucose Meter Test blood sugar(s) 1 times daily. Dx: Type 2 DM - Uncontrolled . Insulin: No Lancets lancets Test blood sugar(s) 1 times daily. Dx: Type 2 DM - Uncontrolled Insulin: No albuterol HFA (PROVENTIL HFA, VENTOLIN HFA) 90 mcg/actuation inhaler Inhale 2 Puffs as instructed every 4 hours as needed for wheezing/shortness of breath. diclofenac (VOLTAREN) 1 % topical gel Apply 2 g to affected area four times daily. Lancets lancets Test blood sugar(s) 1 times daily. Dx: E11.65. Insulin: No aspirin 81 mg chewable tablet Take 81 mg by mouth once daily. Blood-Glucose Meter monitoring kit Glucose Meter of Choice - Kit - Dx: Type 2 DM - Uncontrolled multivitamins(DAILY MULTIVITAMIN TAB) Take one(1) tablet daily. No current facility-administered medications on file prior to visit. Social History Social History Tobacco Use Smoking status: Former Current packs/day: 0.00 Types: Cigarettes Start date: 06/02/2017 Quit date: 06/02/2020 Years since quittin.0 Smokeless tobacco: Never Tobacco comments: social smoking for 3 years. Occasional smoking when upset Vaping Use Vaping status: Never Used Substance Use Topics Alcohol use: Yes Comment: Socially Drug use: No EXAM: BP 124/68 (BP Site: Left Arm, BP Position: Sitting, BP Cuff Size: Large Adult) Pulse 68 Resp 18 Wt 87.8 kg (193 lb 9 oz) BMI 37.49 kg/m General Appearance: Well appearing, alert, in no acute distress, well-hydrated, well nourished. and Obese. Lungs: Lungs clear to auscultation. No wheezing, rhonchi, rales.. Heart: RRR without murmur, gallop, or rubs. No ectopy. Health Maintenance List HIV Screening Never done Pneumococcal Vaccine: 50+(1 of 2 - PCV) Never done Mammogram Screening due on 04/15/2018 DTaP,Tdap,Td Vaccine(2 - Td or Tdap) due on 08/27/2019 Colorectal Cancer Screening due on 07/06/2021 RSV Vaccine(1 - Risk 60-74 years 1-dose series) Never done Dilated Retinal Exam due on 12/05/2022 Diabetic Foot Exam due on 08/26/2023 HbA1C due on 09/07/2024 Urine Albumin:Creatinine Ratio due on 09/28/2024 Annual PCP Team Chronic Disease Visit due on 02/15/2025 BP Controlled (<130/80) due on 02/15/2025 LDL Cholesterol due on 06/08/2025 Influenza Vaccine Completed Hepatitis C Screening Completed Shingrix Vaccine Completed Covid-19 Vaccine Completed Cervical Cancer Screening Discontinued Data reviewed Appointment on 06/08/2024 Component Date Value Protein, Total 06/08/2024 7.2 Albumin 06/08/2024 4.2 Calcium, Total 06/08/2024 9.5 Bilirubin, Total 06/08/2024 0.8 Alkaline Phosphatase 06/08/2024 82 AST 06/08/2024 17 ALT 06/08/2024 25 Glucose 06/08/2024 168 (H) BUN 06/08/2024 28 (H) Creatinine 06/08/2024 0.76 Sodium 06/08/2024 140 Potassium 06/08/2024 4.6 Chloride 06/08/2024 105 CO2 06/08/2024 20 (L) Anion Gap 06/08/2024 15 Estimated Glomerular Thad* 06/08/2024 89 Hemoglobin A1C 06/08/2024 8.2 (H) Estimated Average Glucose 06/08/2024 189 Cholesterol, Total 06/08/2024 211 (H) Triglyceride 06/08/2024 436 (H) HDL Cholesterol 06/08/2024 33 (L) Non HDL Cholesterol 06/08/2024 178 (H) Fasting Time 06/08/2024 12 VLDL Cholesterol 06/08/2024 TC:HDL Ratio 06/08/2024 6.39 (H) LDL Cholesterol 06/08/2024 LDL:HDL Ratio 06/08/2024 Bilirubin, Direct 06/08/2024 0.2 LDL Cholesterol, Direct 06/08/2024 121 (H) VLDL Cholesterol 06/08/2024 57 (H) 1. Anxiety (F41.9) Experiencing significant stress at work, performing the duties of three people. Uses sleep as a coping mechanism to manage anxiety. - Refill lorazepam prescription. 2. Sciatica, right side (M54.31) 3. Diabetes mellitus, non-insulin dependent (NIDDM or type II) (HCC) (E11.9) Recent lab work shows A1c at 8.2% and blood glucose at 168 mg/dL, which is an improvement. Currently on Mounjaro 15 mg, metformin, glimepiride, Jardiance, Zetia, and Repatha. - Continue current medication regimen. - Follow-up in 3 months to reassess glycemic control. 4. Moderate episode of recurrent major depressive disorder (HCC) (F33.1) 5. Hypertension, essential (I10) Blood pressure is well-controlled. 6. Obesity, Class II, BMI 35-39.9 (E66.812) 7. Myalgia (M79.10) Experiencing generalized myalgia, particularly in the shoulders and neck. Previously used muscle relaxers but prescription was outdated. Currently taking up to 9 Tylenol per day for pain management. - Prescribed Flexeril; advised to take at bedtime initially to assess for drowsiness. - Recommended application of heat. - Advised continuation of Tylenol as needed. - Suggested massage therapy as an adjunct treatment. 8. Dry mouth (R68.2) Experiencing xerostomia for the past three days, possibly related to elevated blood glucose levels. Follow up in 3 months Medical Decision Making: Problems: Moderate: New problem with uncertain prognosis and 2+ stable chronic illnesses Data: Unique test result(s) reviewed: 3+ Risk: Moderate: Drug management Medical Decision Making Level: 4 - Moderate Emily Wang MD The patient consented to the use of [employer] software for draft documentation of the visit consistent with [facility] s Notice of Privacy Practices. documented in this encounter [facility] 06-12-2024 Note HNO ID: [id number] Author: EMILY WANG MD Service: ? Author Type: Physician Type: Progress Notes Filed: 06/12/2024 19:52 Note Text: Chief Complaint Patient presents with: Fibromyalgia Medication Follow-up HPI Camila Harmon is a 63 year old female who presents here today for follow up and new problem. Pt c/o body aches all over and a feeling of being squishy. A lot of the pain is located in neck, upper shoulder and upper back area. This has been ongoing for the past couple weeks. She has been taking up to 9 Tylenol per day for pain relief and is seeking a new prescription for a muscle relaxer, specifically Flexeril, which she has not tried before. She has also been using a topical lotion containing wintergreen, eucalyptus, and camphor, which provides some relief after an initial Requesting refill of Flexeril 10 mg 1 tab po TID prn. Hx of anxiety and depression. Is on current regimen of Paxil 10 +40 mg daily, Buspar 15 mg TID and Ativan 0.5 mg 2 tabs po bid. Pt has been referred to Psych, appt's with Samra pelayo and pt has no showed them. Pt reports she's forgotten them due to being so busy at work. GI - Takes Protonix 40 mg once daily, stable. DM - Checking sugars at home, maybe twice a week. Denies lows or neuropathy symptoms. On current regimen of Mounjaro 15 mg once weekly, Jardiance 25 mg once daily, Amaryl 4 mg once daily, and Metformin 500 mg 1 tab po bid. HTN - Denies checking BP at home or having symptoms of chest pain or sob. Notes dizziness. On current regimen of Lisinopril 20 mg 1 tab po bid and Atenolol 100 mg once daily. Lipids - Tries to watch diet. Denies any formal exercise but only at work. On current regimen of Lipitor 80 mg once daily, Fenofibrate 40 mg once daily and Zetia 10 mg once daily. Camila also reports xerostomia for the past 3 days, despite increasing her water intake and adding lemon to her water. She is currently taking Mounjaro 15 mg, metformin BID, glimepiride, Zetia, Repatha, and Jardiance. Recent lab work showed an A1c of 8.2 and a blood glucose level of 168 mg/dL, which is an improvement from previous readings. 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 She mentions feeling tired even after a full night's sleep and taking naps after work. She also experiences episodes of dissociation, where she does not remember how she arrived at a destination while driving. She is currently taking lorazepam for anxiety. Past medical history, appointments, medications, allergies reviewed. Previous Medical History PAST MEDICAL HISTORY Diagnosis Date Coronary artery disease Depressive disorder, not elsewhere classified Enlarged liver Excessive or frequent menstruation 07/06/2004 s/p TVH Migraine with aura, without mention of intractable migraine without mention of status migrainosus Other anxiety states Pure hypercholesterolemia S/P primary angioplasty with coronary stent 11/06/2008 Type II or unspecified type diabetes mellitus without mention of complication, not stated as uncontrolled Previous Surgical History PAST SURGICAL HISTORY Procedure Laterality Date CARPAL TUNNEL Bilateral 03/05/2017 COLONOSCOPY FLX DX W/COLLJ SPEC WHEN PFRMD 07/19/2013 Colonoscopy EXTRACTION, ERUPTED TOOTH OR EXPOSED ROOT (ELEVATION AND/OR FORCEPS REMOVAL) wisdom teeth HEART CATHETERIZATION N/A 02/11/2022 HYSTERECTOMY HX PAST SURGICAL HISTORY OF 02/22/2002 BREAST REDUCTION PAST SURGICAL HISTORY OF 2008, 2011 stent, LAD X2. VAGINAL HYSTERECTOMY UTERUS 250 GM/< 07/2004 Hysterectomy, vaginal Family History FAMILY HISTORY Problem Relation Age of Onset Hypertension Mother Diabetes Mother Heart Mother [place], age 72; first dx age late 60's Lipids Mother Stroke Mother Blindness Mother Hypertension Father Lipids Father Diabetes Father Patient Allergies ALLERGIES Allergen Reactions Penicillins Hives Percocet [Oxycodone* GI Upset Tylenol-Codeine Prerna* Other: See Comments halucinations Current Medications Current Outpatient Medications on File Prior to Visit Medication Sig atenolol (TENORMIN) 100 mg tablet Take 1 tablet by mouth once daily. lisinopril (ZESTRIL) 20 mg tablet Take 1 tablet by mouth two times a day. pantoprazole DR (PROTONIX) 40 mg tablet Take 1 tablet by mouth daily before breakfast. Take on empty stomach, 1/2 hr before meal. PARoxetine (PAXIL) 10 mg tablet Take 1 tablet by mouth once daily. Take along with Paxil 40 mg tablet PARoxetine (PAXIL) 40 mg tablet Take 1 tablet by mouth once daily. evolocumab (REPATHA SURECLICK) 140 mg/mL pen injector Inject 140 mg subcutaneously every 2 weeks. meclizine (ANTIVERT) 25 mg tab Take 1 tablet by mouth three times a day as needed. atorvastatin (LIPITOR) 80 mg tablet Take 1 tablet by mouth daily at bedtime for cholesterol. LORazepam ( (more content not included)... [facility] 06-12-2024 Telephone encounter Note Pt calling in for a refill on her Lorazepam. Last visit 02/16/24. No upcoming appt scheduled. Pt also requesting a refill on a prescription from 2022. Pt asking for a refill on her Cyclobenzaprine muscle relaxant. Pt states she has been having a lot of muscle aches and needs something to help her relax. Informed pt that she would need appt. Pt declined offered appt tomorrow and states I work and can't come in. Booked for tonight at [address] Wang. Informed pt that this is a problem only appt and 20 mins. Will need to schedule followup later. [facility] 06-12-2024 Miscellaneous Notes Pt calling in for a refill on her Lorazepam. Last visit 02/16/24. No upcoming appt scheduled. Pt also requesting a refill on a prescription from 2022. Pt asking for a refill on her Cyclobenzaprine muscle relaxant. Pt states she has been having a lot of muscle aches and needs something to help her relax. Informed pt that she would need appt. Pt declined offered appt tomorrow and states I work and can't come in. Booked for tonight at [address] Wang. Informed pt that this is a problem only appt and 20 mins. Will need to schedule followup later. documented in this encounter [facility] 06-12-2024 Miscellaneous Notes Called pt No answer, left VM Sent [email or web address] message Can you please call the patient and let her know that I reviewed her lab results. A1c went from 7.9 to 8.2. I would like her to continue with current medication and work on eating a low-carb diet. I would like her to schedule follow-up appointment with endocrinology. Repeat labs will be due in 3 months. Thank you Aileen Quintanilla APRN.SHIPPING ORDER CLERK documented in this encounter [facility] 06-12-2024 Telephone encounter Note Called pt No answer, left VM Sent [email or web address] message [facility] 06-09-2024 Telephone encounter Note Can you please call the patient and let her know that I reviewed her lab results. A1c went from 7.9 to 8.2. I would like her to continue with current medication and work on eating a low-carb diet. I would like her to schedule follow-up appointment with endocrinology. Repeat labs will be due in 3 months. Thank you Aileen Quintanilla APRN.SHIPPING ORDER CLERK [facility] 05-18-2024 Telephone encounter Note OK to refill as ordered Emily Wang MD [facility] 05-18-2024 Miscellaneous Notes OK to refill as ordered Emily Wang MD The patient has been identified by name and date of : Yes Caregiver verified no other encounters exist for this prescription request: Yes Caregiver confirmed with patient/requestor that no other refills are due, in the near future, with this provider at this time: Yes The last office visit in the department: 02/16/2024 Does the patient have a future office visit with this provider/department: Yes 06/01/2024 Requested Prescriptions Pending Prescriptions Disp Refills atenolol (TENORMIN) 100 mg tablet 90 tablet 3 Sig: Take 1 tablet by mouth once daily. lisinopril (ZESTRIL) 20 mg tablet 60 tablet 11 Sig: Take 1 tablet by mouth two times a day. pantoprazole DR (PROTONIX) 40 mg tablet 30 tablet 5 Sig: Take 1 tablet by mouth daily before breakfast. Take on empty stomach, 1/2 hr before meal. PARoxetine (PAXIL) 10 mg tablet 30 tablet 5 Sig: Take 1 tablet by mouth once daily. Take along with Paxil 40 mg tablet PARoxetine (PAXIL) 40 mg tablet 30 tablet 5 Sig: Take 1 tablet by mouth once daily. Yuridia Mathis RN May 18, 2024 10:36 AM documented in this encounter [facility] 05-18-2024 Telephone encounter Note The patient has been identified by name and date of : Yes Caregiver verified no other encounters exist for this prescription request: Yes Caregiver confirmed with patient/requestor that no other refills are due, in the near future, with this provider at this time: Yes The last office visit in the department: 02/16/2024 Does the patient have a future office visit with this provider/department: Yes 06/01/2024 Requested Prescriptions Pending Prescriptions Disp Refills atenolol (TENORMIN) 100 mg tablet 90 tablet 3 Sig: Take 1 tablet by mouth once daily. lisinopril (ZESTRIL) 20 mg tablet 60 tablet 11 Sig: Take 1 tablet by mouth two times a day. pantoprazole DR (PROTONIX) 40 mg tablet 30 tablet 5 Sig: Take 1 tablet by mouth daily before breakfast. Take on empty stomach, 1/2 hr before meal. PARoxetine (PAXIL) 10 mg tablet 30 tablet 5 Sig: Take 1 tablet by mouth once daily. Take along with Paxil 40 mg tablet PARoxetine (PAXIL) 40 mg tablet 30 tablet 5 Sig: Take 1 tablet by mouth once daily. Yuridia Mathis RN May 18, 2024 10:36 AM [facility] 05-02-2024 Telephone encounter Note Cover my Meds mosher [id number] completed. Approved 05/02/24 to 05/02/2025 Roxanne Swartz MA [facility] 05-02-2024 Miscellaneous Notes Cover my Meds mosher [id number] completed. Approved 05/02/24 to 05/02/2025 Roxanne Swartz MA documented in this encounter [facility] 05-01-2024 Telephone encounter Note Scanned into patient chart Scan on 05/01/2024 3:53 PM by Kristyn Carrasquillo: [facility] Approval for Repatha, [facility] 05-01-2024 Miscellaneous Notes Scanned into patient chart Scan on 05/01/2024 3:53 PM by Kristyn Carrasquillo: [facility] Approval for Repatha, [facility] Approval for Repatha, 04/27/24 - 04/27/25 Placed in PSS basket for scanning to chart documented in this encounter [facility] 05-01-2024 Telephone encounter Note [facility] Approval for Jeroa, 04/27/24 - 04/27/25 Placed in PSS basket for scanning to chart [facility] 04-27-2024 Telephone encounter Note Ambulatory Pharmacy Prior Authorization Note Provider Intervention Required?: No - Pharmacy completed on your behalf. Was the PA documented within the ePA workqueue?: Yes View the status history of the prior authorization in the Auth Tab within Chart Review Additional Information: For questions relating to this submission, please contact [facility] at [phone] [facility] Work Phone: 04-27-2024 Miscellaneous Notes Ambulatory Pharmacy Prior Authorization Note Provider Intervention Required?: No - Pharmacy completed on your behalf. Was the PA documented within the ePA workqueue?: Yes View the status history of the prior authorization in the Auth Tab within Chart Review Additional Information: For questions relating to this submission, please contact [facility] at [phone] documented in this encounter [facility] 04-24-2024 History of Present illness Narrative Images from the original note were not included. [facility] SECTION OF REGIONAL CARDIOLOGY OUTPATIENT VISIT DATE 04/24/24 OUTPATIENT VISIT TYPE ESTABLISHED PRIMARY CARE PHYSICIAN: Emily Wang [address] [place] [address] HISTORY OF PRESENT ILLNESS: Ms. Harmon is a 63 year old female, history of hypertension, hyperlipidemia, family history of premature CAD, CAD s/p PCI in 2010 and 2008, 1-2+, TR, FLOR, DM, presents for follow-up visit. Previously seen by Dr. Nash 10/21/2022, more recently seen by me in 12/2023. Cath 02/11/22: patent stents in the proximal to mid LAD with mild in-stent restenosis. Bifurcation stenting into the first large diagonal branch with an ostial 50-60% in-stent restenosis. Otherwise mild diffuse disease. Normal LVEDP. The LAD and left circumflex nearly arise from separate ostia. At her last visit, she reported experiencing SOB with lifting heavy palettes. She had an episode of chest pain 3 months prior to her last visit while lifting palettes and had to take a sl nitro. She also reported intermittent chest pain and SOB at the last visit. Cardiac testing were ordered, results of which are summarized below and mycharted to her. No recurrences since then. PAST MEDICAL HISTORY Diagnosis Date Coronary artery disease Depressive disorder, not elsewhere classified Enlarged liver Excessive or frequent menstruation 07/06/2004 s/p TVH Migraine with aura, without mention of intractable migraine without mention of status migrainosus Other anxiety states Pure hypercholesterolemia S/P primary angioplasty with coronary stent 11/06/2008 Type II or unspecified type diabetes mellitus without mention of complication, not stated as uncontrolled PAST SURGICAL HISTORY Procedure Laterality Date CARPAL TUNNEL Bilateral 03/05/2017 COLONOSCOPY FLX DX W/COLLJ SPEC WHEN PFRMD 07/19/2013 Colonoscopy EXTRACTION, ERUPTED TOOTH OR EXPOSED ROOT (ELEVATION AND/OR FORCEPS REMOVAL) wisdom teeth HEART CATHETERIZATION N/A 02/11/2022 HYSTERECTOMY HX PAST SURGICAL HISTORY OF 02/22/2002 BREAST REDUCTION PAST SURGICAL HISTORY OF 2008, 2011 stent, LAD X2. VAGINAL HYSTERECTOMY UTERUS 250 GM/< 07/2004 Hysterectomy, vaginal Social History Tobacco Use Smoking status: Former Current packs/day: 0.00 Types: Cigarettes Start date: 06/02/2017 Quit date: 06/02/2020 Years since quittin.8 Smokeless tobacco: Never Tobacco comments: social smoking for 3 years. Occasional smoking when upset Vaping Use Vaping status: Never Used Substance Use Topics Alcohol use: Yes Comment: Socially Drug use: No FAMILY HISTORY Problem Relation Age of Onset Hypertension Mother Diabetes Mother Heart Mother [place], age 72; first dx age late 60's Lipids Mother Stroke Mother Blindness Mother Hypertension Father Lipids Father Diabetes Father ALLERGIES Allergen Reactions Penicillins Hives Percocet [Oxycodone* GI Upset Tylenol-Codeine Prerna* Other: See Comments halucinations CURRENT MEDICATIONS: meclizine (ANTIVERT) 25 mg tab Take 1 tablet by mouth three times a day as needed. atorvastatin (LIPITOR) 80 mg tablet Take 1 tablet by mouth daily at bedtime for cholesterol. LORazepam (ATIVAN) 0.5 mg Take 2 tablets by mouth two times a day for 30 days. hydrOXYzine HCl (ATARAX) 25 mg tablet Take 1 tablet by mouth every 6 hours as needed for anxiety. glimepiride (AMARYL) 4 mg tablet Take 1 tablet by mouth two times a day with meals. Fenofibrate 40 mg tab Take 1 tablet by mouth once daily. PARoxetine (PAXIL) 40 mg tablet Take 1 tablet by mouth once daily. pantoprazole DR (PROTONIX) 40 mg tablet Take 1 tablet by mouth daily before breakfast. Take on empty stomach, 1/2 hr before meal. PARoxetine (PAXIL) 10 mg tablet Take 1 tablet by mouth once daily. Take along with Paxil 40 mg tablet metFORMIN (GLUCOPHAGE) 500 mg tablet Take 1 tablet by mouth two times a day with meals. empagliflozin (JARDIANCE) 25 mg tablet Take 1 tablet once daily in the morning tirzepatide (MOUNJARO) 15 mg/0.5 mL pen injector Inject 15 mg subcutaneously one time a week. cyanocobalamin (VITAMIN B-12) 1,000 mcg tab Take 1 tablet by mouth once daily. cholecalciferol (VITAMIN D-3) 5,000 unit tab Take 1 tablet by mouth once daily. esomeprazole (NEXIUM) 20 mg capsule Take 20 mg by mouth daily at 6 am. Blood-Glucose Sensor ([employer] [place] G7 SENSOR) john CHANGE SENSOR EVERY 10 days USE FOR CONTINUOUS GLUCOSE MONITORING. E11.9 (Patient not taking: Reported on 02/16/2024) ondansetron orally disintegrating (ZOFRAN ODT) 4 mg disintegrating tablet Take 1 tablet by mouth every 6 hours as needed for nausea/vomiting. lisinopril (ZESTRIL) 20 mg tablet Take 1 tablet by mouth two times a day. atenolol (TENORMIN) 100 mg tablet Take 1 tablet by mouth once daily. gabapentin (NEURONTIN) 300 mg capsule Take 1 capsule by mouth two times a day for 180 days. magnesium oxide (MAG-OX) 400 mg (241.3 mg magnesium) tablet Take 1 tablet by mouth two times a day. nitroglycerin sublingual (NITROQUICK) 0.4 mg SL tablet Dissolve 1 tablet under the tongue as needed. FOR CHEST PAIN. IF NO RELIEF CALL 911 blood sugar diagnostic (BLOOD GLUCOSE TEST) test strip Test blood sugar(s) one times daily. Dx: Type 2 DM - Uncontrolled E11.65 Insulin: No ezetimibe (ZETIA) 10 mg tablet Take 1 tablet by mouth once daily. cyclobenzaprine (FLEXERIL) 10 mg tablet Take 1 tablet by mouth three times daily as needed for muscle spasm. promethazine (PHENERGAN) 25 mg tablet Take 1 tablet by mouth every 6 hours as needed for nausea/vomiting. busPIRone (BUSPAR) 15 mg tablet Take 1 tablet by mouth three times daily. Blood-Glucose Meter Test blood sugar(s) 1 times daily. Dx: Type 2 DM - Uncontrolled . Insulin: No Lancets lancets Test blood sugar(s) 1 times daily. Dx: Type 2 DM - Uncontrolled . Insulin: No albuterol HFA (PROVENTIL HFA, VENTOLIN HFA) 90 mcg/actuation inhaler Inhale 2 Puffs as instructed every 4 hours as needed for wheezing/shortness of breath. diclofenac (VOLTAREN) 1 % topical gel Apply 2 g to affected area four times daily. Lancets lancets Test blood sugar(s) 1 times daily. Dx: E11.65. Insulin: No aspirin 81 mg chewable tablet Take 81 mg by mouth once daily. Blood-Glucose Meter monitoring kit Glucose Meter of Choice - Kit - Dx: Type 2 DM - Uncontrolled multivitamins(DAILY MULTIVITAMIN TAB) Take one(1) tablet daily. PHYSICAL EXAMINATION: BP 136/64 Pulse 78 Ht 153 cm (5' 0.25) SpO2 98% BMI 37.87 kg/m General: Appears comfortable in no apparent cardiopulmonary distress Neck: No JVD, no bruits CVS: S1, S2, No m/r/g Chest: CTAB Abd: Soft, nontender, no masses, BS present Ext: No pedal edema, pedal pulses 2+ bilaterally Neuro: No focal neurological deficits CARDIOVASCULAR MEDICINE TESTING: Last ECHO Result Conclusion ECHO Collected: 12/30/2023 9:02 AM (Final result) Impression: CONCLUSIONS: - Exam indication: Shortness of Breath - The left ventricle is normal in size. Left ventricular systolic function is normal. EF = 60 5% (2D biplane) Grade I left ventricular diastolic dysfunction. - The right ventricle is normal in size. Right ventricular systolic function is normal. - There are no significant valvular abnormalities. - Estimated right ventricular systolic pressure is likely underestimated due to a weak or incomplete tricuspid regurgitation signal and is, at least, 29 mmHg consistent with normal pulmonary artery pressures. Estimated right atrial pressure is 8 mmHg based on IVC assessment. - Exam was compared with the prior echocardiographic exam performed on 04/18/21. The tricuspid regurgitation appears decreased on today's exam. * * * Final * * * Last EKG Result Conclusion EKG Collected: 10/07/2023 6:22 PM (Preliminary result) Impression: NORMAL SINUS RHYTHM NORMAL ECG ASSESSMENT/PLAN: 1. Coronary artery disease due to lipid rich plaque - ICD9: 414.00, 414.3, ICD10: I25.10, I25.83 (primary diagnosis) No recurrences. Recent lipid panel-triglycerides 620. Unable to calculate LDL. Fenofibrate was started with improvement to 275, LDL at 75 on 02/15/24 NST 12/23/23: was neg for ischemia /scar. EF 70% TTE 12/30/23: EF 60%, 0.7/0.8, trace MR, TR, NV, Asc AO 3.2 cm - On aspirin 81 mg po daily - On atorvastatin 80 mg daily - On Zetia 10 mg p.o. daily - LDL 75, trig 275. Fenofibrate 40 mg p.o. daily. Mycharted results of her stress, echo and lab results to her with recommendations. PCSK9i was recommended. She states that she would like to try Repatha and recheck her lipids and LFTs in 6 weeks. Call her with results per her preference. - We discussed low cholesterol diet- avoid red meats and processed foods, focus on lean portions of white meat- chicken and turkey breast, fish, healthy nuts, fruits, vegetables. - Goal for exercise- gradually achieving at least 30 minutes of moderate intensity aerobic exercise 5 times per week-biking, brisk walking, hiking, swimming, rowing. - RTC in 1 year sooner if medically necessary 2. Hypertriglyceridemia - ICD9: 272.1, ICD10: E78.1 - FENOFIBRATE 40 MG TABLET. Tri 275 on 02/15/24. Normal LFTs, CK. - On zetia, atorvastatin. - As above - Advised on low saturated fat diet - Diabetes mellitus management per her PCP Hawa Padron MD, FACC documented in this encounter [facility] 04-24-2024 Note HNO ID: [id number] Author: HAWA PADRON MD Service: ? Author Type: Physician Type: Progress Notes Filed: 04/24/2024 11:39 Note Text: [facility] SECTION OF REGIONAL CARDIOLOGY OUTPATIENT VISIT DATE 04/24/24 OUTPATIENT VISIT TYPE ESTABLISHED PRIMARY CARE PHYSICIAN: Emily Wang [address] [place] [address] HISTORY OF PRESENT ILLNESS: Ms. Harmon is a 63 year old female, history of hypertension, hyperlipidemia, family history of premature CAD, CAD s/p PCI in 2010 and 2008, 1-2+, TR, FLOR, DM, presents for follow-up visit. Previously seen by Dr. Nash 10/21/2022, more recently seen by me in 12/2023. Cath 02/11/22: patent stents in the proximal to mid LAD with mild in-stent restenosis. Bifurcation stenting into the first large diagonal branch with an ostial 50-60% in-stent restenosis. Otherwise mild diffuse disease. Normal LVEDP. The LAD and left circumflex nearly arise from separate ostia. At her last visit, she reported experiencing SOB with lifting heavy palettes. She had an episode of chest pain 3 months prior to her last visit while lifting palettes and had to take a sl nitro. She also reported intermittent chest pain and SOB at the last visit. Cardiac testing were ordered, results of which are summarized below and mycharted to her. No recurrences since then. PAST MEDICAL HISTORY Diagnosis Date Coronary artery disease Depressive disorder, not elsewhere classified Enlarged liver Excessive or frequent menstruation 07/06/2004 s/p TVH Migraine with aura, without mention of intractable migraine without mention of status migrainosus Other anxiety states Pure hypercholesterolemia S/P primary angioplasty with coronary stent 11/06/2008 Type II or unspecified type diabetes mellitus without mention of complication, not stated as uncontrolled PAST SURGICAL HISTORY Procedure Laterality Date CARPAL TUNNEL Bilateral 03/05/2017 COLONOSCOPY FLX DX W/COLLJ SPEC WHEN PFRMD 07/19/2013 Colonoscopy EXTRACTION, ERUPTED TOOTH OR EXPOSED ROOT (ELEVATION AND/OR FORCEPS REMOVAL) wisdom teeth HEART CATHETERIZATION N/A 02/11/2022 HYSTERECTOMY HX PAST SURGICAL HISTORY OF 02/22/2002 BREAST REDUCTION PAST SURGICAL HISTORY OF 2008, 2011 stent, LAD X2. VAGINAL HYSTERECTOMY UTERUS 250 GM/< 07/2004 Hysterectomy, vaginal Social History Tobacco Use Smoking status: Former Current packs/day: 0.00 Types: Cigarettes Start date: 06/02/2017 Quit date: 06/02/2020 Years since quittin.8 Smokeless tobacco: Never Tobacco comments: social smoking for 3 years. Occasional smoking when upset Vaping Use Vaping status: Never Used Substance Use Topics Alcohol use: Yes Comment: Socially Drug use: No FAMILY HISTORY Problem Relation Age of Onset Hypertension Mother Diabetes Mother Heart Mother [place], age 72; first dx age late 60's Lipids Mother Stroke Mother Blindness Mother Hypertension Father Lipids Father Diabetes Father ALLERGIES Allergen Reactions Penicillins Hives Percocet [Oxycodone* GI Upset Tylenol-Codeine Prerna* Other: See Comments halucinations CURRENT MEDICATIONS: meclizine (ANTIVERT) 25 mg tab Take 1 tablet by mouth three times a day as needed. atorvastatin (LIPITOR) 80 mg tablet Take 1 tablet by mouth daily at bedtime for cholesterol. LORazepam (ATIVAN) 0.5 mg Take 2 tablets by mouth two times a day for 30 days. hydrOXYzine HCl (ATARAX) 25 mg tablet Take 1 tablet by mouth every 6 hours as needed for anxiety. glimepiride (AMARYL) 4 mg tablet Take 1 tablet by mouth two times a day with meals. Fenofibrate 40 mg tab Take 1 tablet by mouth once daily. PARoxetine (PAXIL) 40 mg tablet Take 1 tablet by mouth once daily. pantoprazole DR (PROTONIX) 40 mg tablet Take 1 tablet by mouth daily before breakfast. Take on empty stomach, 1/2 hr before meal. PARoxetine (PAXIL) 10 mg tablet Take 1 tablet by mouth once daily. Take along with Paxil 40 mg tablet metFORMIN (GLUCOPHAGE) 500 mg tablet Take 1 tablet by mouth two times a day with meals. empagliflozin (JARDIANCE) 25 mg tablet Take 1 tablet once daily in the morning tirzepatide (MOUNJARO) 15 mg/0.5 mL pen injector Inject 15 mg subcutaneously one time a week. cyanocobalamin (VITAMIN B-12) 1,000 mcg tab Take 1 tablet by mouth once daily. cholecalciferol (VITAMIN D-3) 5,000 unit tab Take 1 tablet by mouth once daily. esomeprazole (NEXIUM) 20 mg capsule Take 20 mg by mouth daily at 6 am. Blood-Glucose Sensor ([employer] G7 SENSOR) john CHANGE SENSOR EVERY 10 days USE FOR CONTINUOUS GLUCOSE MONITORING. E11.9 (Patient not taking: Reported on 02/16/2024) ondansetron orally disintegrating (ZOFRAN ODT) 4 mg disintegrating tablet Take 1 tablet by mouth every 6 hours as needed for nausea/vomiting. lisinopril (ZESTRIL) 20 mg tablet Take 1 tablet by mouth two times a day. atenolol (TENORMIN) 100 mg ta (more content not included)... [facility] 04-11-2024 Telephone encounter Note Done Emily Wang MD [facility] 04-11-2024 Miscellaneous Notes Done Emily Wang MD Pt here with spouse today for his visit. Asking if PCP could Rx Diflucan for a yeast infection that she's been dealing with for the past month. Requesting Rx to go to [facility]. Edith Chavira MA documented in this encounter [facility] 04-11-2024 Telephone encounter Note Pt here with spouse today for his visit. Asking if PCP could Rx Diflucan for a yeast infection that she's been dealing with for the past month. Requesting Rx to go to [facility]. Edith Chavira MA [facility] 03-20-2024 Miscellaneous Notes Please let her know that I have sent. The following approved medication requests have been transmitted electronically. Requested Prescriptions Pending Prescriptions Disp Refills meclizine (ANTIVERT) 25 mg tab 15 tablet 0 Sig: Take 1 tablet by mouth three times a day as needed. Bahman Edmonds APRN.CNP Patient has had vertigo for the last 2 weeks and is asking for this shelley. She states she has off tomorrow if she needs to be seen and it is ok to leave a message on her voice mail. Prescription Refill Information The patient has been identified by name and date of : Yes Caregiver verified no other encounters exist for this prescription request: Yes Caregiver confirmed with patient/requestor that no other refills are due, in the near future, with this provider at this time: Yes The last office visit in the department: 02-16-24 Does the patient have a future office visit with this provider/department: Yes Requested Prescriptions Pending Prescriptions Disp Refills meclizine (ANTIVERT) 25 mg tab 15 tablet 0 Sig: Take 1 tablet by mouth three times a day as needed. Roxanne Kohli March 20, 2024 11:11 AM documented in this encounter [facility] 03-20-2024 Telephone encounter Note Please let her know that I have sent. The following approved medication requests have been transmitted electronically. Requested Prescriptions Pending Prescriptions Disp Refills meclizine (ANTIVERT) 25 mg tab 15 tablet 0 Sig: Take 1 tablet by mouth three times a day as needed. Bahman Edmonds APRN.CNP [facility] 03-20-2024 Telephone encounter Note Patient has had vertigo for the last 2 weeks and is asking for this shelley. She states she has off tomorrow if she needs to be seen and it is ok to leave a message on her voice mail. [facility] 03-20-2024 Telephone encounter Note Prescription Refill Information The patient has been identified by name and date of : Yes Caregiver verified no other encounters exist for this prescription request: Yes Caregiver confirmed with patient/requestor that no other refills are due, in the near future, with this provider at this time: Yes The last office visit in the department: 02-16-24 Does the patient have a future office visit with this provider/department: Yes Requested Prescriptions Pending Prescriptions Disp Refills meclizine (ANTIVERT) 25 mg tab 15 tablet 0 Sig: Take 1 tablet by mouth three times a day as needed. Roxanne Osborne [facility] March 20, 2024 11:11 AM [facility] 03-09-2024 Telephone encounter Note OK to refill as ordered Emily Wang MD [facility] 03-09-2024 Miscellaneous Notes OK to refill as ordered Emily Wang MD [facility] Prescription Refill Information The patient has been identified by name and date of : Yes Caregiver verified no other encounters exist for this prescription request: Yes Caregiver confirmed with patient/requestor that no other refills are due, in the near future, with this provider at this time: Yes The last office visit in the department: 02/16/24 Does the patient have a future office visit with this provider/department: Yes Requested Prescriptions Pending Prescriptions Disp Refills atorvastatin (LIPITOR) 80 mg tablet 90 tablet 3 Sig: Take 1 tablet by mouth daily at bedtime for cholesterol. LORazepam (ATIVAN) 0.5 mg 120 tablet 0 Sig: Take 2 tablets by mouth two times a day for [address] [facility] March 09, 2024 9:26 AM documented in this encounter [facility] 03-09-2024 Telephone encounter Note Prescription Refill Information The patient has been identified by name and date of : Yes Caregiver verified no other encounters exist for this prescription request: Yes Caregiver confirmed with patient/requestor that no other refills are due, in the near future, with this provider at this time: Yes The last office visit in the department: 02/16/24 Does the patient have a future office visit with this provider/department: Yes Requested Prescriptions Pending Prescriptions Disp Refills atorvastatin (LIPITOR) 80 mg tablet 90 tablet 3 Sig: Take 1 tablet by mouth daily at bedtime for cholesterol. LORazepam (ATIVAN) 0.5 mg 120 tablet 0 Sig: Take 2 tablets by mouth two times a day for [address] [facility] March 09, 2024 9:26 AM [facility] 02-16-2024 Note HNO ID: [id number] Author: AILEEN QUINTANILLA APRN.SHIPPING ORDER CLERK Service: ? Author Type: Nurse Practitioner Type: Progress Notes Filed: 02/16/2024 18:59 Note Text: This is a 63 year old female who presents today with: Patient presents with: Wellness HISTORY OF PRESENT ILLNESS: Camila Harmon is a 63 year old female. Patient presents with: Wellness Here in the office for wellness Diet: Working on eating a low carb diet. Exercise: Staying active at work, but no regimen. Vision: Due for exam. Dental: Had exam. Sleep: 8 hours per night. Mood: See below DM2: Follows with endocrinology, has not been keeping track of sugars. Has Dexcom 7 monitor. Working on eating a low carb diet. Still taking metformin 500 mg twice daily, glimepiride 4 mg twice daily, Jardiance 25 mg daily, and Mounjaro 15 mg weekly. A1c went from 10.4 to 7.9. Needs to schedule follow up with Endo. Mood: Currently taking Paxil 50 mg daily, BuSpar 15 mg 3 times daily, and Ativan 0.5 mg, 2 tablets twice daily. No showed Samra SHIPPING ORDER CLERK psychiatry. Needs to reschedule. 2 year anniversary of daughter passing. Going to grief support once per month. Not currently seeing counseling. HTN/CAD: Taking lisinopril 20 mg and atenolol 100 mg daily, baby aspirin 81 mg daily. Not currently checking blood pressure at home. With cardiology, . Had stents placed in the past. Hyperlipidemia: Triglycerides elevated. Taking Lipitor 80 mg daily. Zetia 10 mg daily, fenofibrate 40 mg daily. GERD: Taking Nexium 20 mg daily. present for exam. Mammogram: Due at this time. Colonoscopy: Past due Vaccines: Would like COVID and flu vaccines. Due for Dtap PAST MEDICAL HISTORY: PAST MEDICAL HISTORY Diagnosis Date Coronary artery disease Depressive disorder, not elsewhere classified Enlarged liver Excessive or frequent menstruation 07/06/2004 s/p TVH Migraine with aura, without mention of intractable migraine without mention of status migrainosus Other anxiety states Pure hypercholesterolemia S/P primary angioplasty with coronary stent 11/06/2008 Type II or unspecified type diabetes mellitus without mention of complication, not stated as uncontrolled PAST SURGICAL HISTORY Procedure Laterality Date CARPAL TUNNEL Bilateral 03/05/2017 COLONOSCOPY FLX DX W/COLLJ SPEC WHEN PFRMD 07/19/2013 Colonoscopy EXTRACTION, ERUPTED TOOTH OR EXPOSED ROOT (ELEVATION AND/OR FORCEPS REMOVAL) wisdom teeth HEART CATHETERIZATION N/A 02/11/2022 HYSTERECTOMY HX PAST SURGICAL HISTORY OF 02/22/2002 BREAST REDUCTION PAST SURGICAL HISTORY OF 2008, 2011 stent, LAD X2. VAGINAL HYSTERECTOMY UTERUS 250 GM/< 07/2004 Hysterectomy, vaginal ALLERGIES Penicillins, Percocet [Oxycodone-Acetaminophen], and Tylenol-Codeine Elixir MEDICATIONS Current Outpatient Medications Medication Sig LORazepam (ATIVAN) 0.5 mg Take 2 tablets by mouth two times a day for 30 days. glimepiride (AMARYL) 4 mg tablet Take 1 tablet by mouth two times a day with meals. Fenofibrate 40 mg tab Take 1 tablet by mouth once daily. PARoxetine (PAXIL) 40 mg tablet Take 1 tablet by mouth once daily. pantoprazole DR (PROTONIX) 40 mg tablet Take 1 tablet by mouth daily before breakfast. Take on empty stomach, 1/2 hr before meal. PARoxetine (PAXIL) 10 mg tablet Take 1 tablet by mouth once daily. Take along with Paxil 40 mg tablet metFORMIN (GLUCOPHAGE) 500 mg tablet Take 1 tablet by mouth two times a day with meals. empagliflozin (JARDIANCE) 25 mg tablet Take 1 tablet once daily in the morning tirzepatide (MOUNJARO) 15 mg/0.5 mL pen injector Inject 15 mg subcutaneously one time a week. cyanocobalamin (VITAMIN B-12) 1,000 mcg tab Take 1 tablet by mouth once daily. cholecalciferol (VITAMIN D-3) 5,000 unit tab Take 1 tablet by mouth once daily. esomeprazole (NEXIUM) 20 mg capsule Take 20 mg by mouth daily at 6 am. Blood-Glucose Sensor ([employer] G7 SENSOR) john CHANGE SENSOR EVERY 10 days USE FOR CONTINUOUS GLUCOSE MONITORING. E11.9 ondansetron orally disintegrating (ZOFRAN ODT) 4 mg disintegrating tablet Take 1 tablet by mouth every 6 hours as needed for nausea/vomiting. lisinopril (ZESTRIL) 20 mg tablet Take 1 tablet by mouth two times a day. atorvastatin (LIPITOR) 80 mg tablet Take 1 tablet by mouth daily at bedtime for cholesterol. atenolol (TENORMIN) 100 mg tablet Take 1 tablet by mouth once daily. gabapentin (NEURONTIN) 300 mg capsule Take 1 capsule by mouth two times a day for 180 days. magnesium oxide (MAG-OX) 400 mg (241.3 mg magnesium) tablet Take 1 tablet by mouth two times a day. nitroglycerin sublingual (NITROQUICK) 0.4 mg SL tablet Dissolve 1 tablet under the tongue as needed. FOR CHEST PAIN. IF NO RELIEF CALL 911 blood sugar diagnostic (BLOOD GLUCOSE TEST) test strip Test blood sugar(s) one times daily. Dx: Type 2 DM - Uncontrolled E11.65 Insulin: No ezetimibe (ZETIA) 10 mg tablet Take 1 tablet by mouth once daily. cyclobenzaprine ([place] (more content not included)... [facility] 02-14-2024 Telephone encounter Note OK to refill as ordered Emily Wang MD [facility] 02-14-2024 Miscellaneous Notes OK to refill as ordered Emily Wang MD Pt calls to report she still had a couple refills on medication but the rx . Pt reports the 2nd anniversary of her daughter's is this month and she has not been doing well. Prescription Refill Information The patient has been identified by name and date of : Yes Caregiver verified no other encounters exist for this prescription request: Yes Caregiver confirmed with patient/requestor that no other refills are due, in the near future, with this provider at this time: Yes The last office visit in the department: 11/10/23 Does the patient have a future office visit with this provider/department: Yes 02/16/24 Requested Prescriptions Pending Prescriptions Disp Refills hydrOXYzine HCl (ATARAX) 25 mg tablet 30 tablet 5 Sig: Take 1 tablet by mouth every 6 hours as needed for anxiety. Lou Luna LPN February 14, 2024 4:16 PM documented in this encounter [facility] 02-14-2024 Telephone encounter Note Pt calls to report she still had a couple refills on medication but the rx . Pt reports the 2nd anniversary of her daughter's is this month and she has not been doing well. Prescription Refill Information The patient has been identified by name and date of : Yes Caregiver verified no other encounters exist for this prescription request: Yes Caregiver confirmed with patient/requestor that no other refills are due, in the near future, with this provider at this time: Yes The last office visit in the department: 11/10/23 Does the patient have a future office visit with this provider/department: Yes 02/16/24 Requested Prescriptions Pending Prescriptions Disp Refills hydrOXYzine HCl (ATARAX) 25 mg tablet 30 tablet 5 Sig: Take 1 tablet by mouth every 6 hours as needed for anxiety. Lou Luna LPN February 14, 2024 4:16 PM [facility] 02-14-2024 Telephone encounter Note TC to pt. Left a detailed message on a secure line for Pt to get labs completed before appt on Wed. Nargis Reynaga LPN [facility] 02-14-2024 Miscellaneous Notes TC to pt. Left a detailed message on a secure line for Pt to get labs completed before appt on Wed. Nargis Reynaga LPN documented in this encounter [facility] 01-24-2024 Telephone encounter Note Approved. PDMP website checked and validated. All prescriptions have been APPROPRIATELY filled. No suspicious activity was identified. 01/24/2024 by Bahman Edmonds APRN.CNP The following approved medication requests have been transmitted electronically. Requested Prescriptions Signed Prescriptions Disp Refills LORazepam (ATIVAN) 0.5 mg 120 tablet 0 Sig: Take 2 tablets by mouth two times a day for 30 days. Authorizing Provider: BAHMAN EDMONDS APRN.CNP [facility] 01-24-2024 Miscellaneous Notes Approved. PDMP website checked and validated. All prescriptions have been APPROPRIATELY filled. No suspicious activity was identified. 01/24/2024 by Bahman Edmonds APRN.CNP The following approved medication requests have been transmitted electronically. Requested Prescriptions Signed Prescriptions Disp Refills LORazepam (ATIVAN) 0.5 mg 120 tablet 0 Sig: Take 2 tablets by mouth two times a day for 30 days. Authorizing Provider: BAHMAN EDMONDS APRN.CNP Prescription Refill Information The patient has been identified by name and date of : Yes Caregiver verified no other encounters exist for this prescription request: Yes Caregiver confirmed with patient/requestor that no other refills are due, in the near future, with this provider at this time: Yes The last office visit in the department: 11-10-23 Does the patient have a future office visit with this provider/department: No Requested Prescriptions Pending Prescriptions Disp Refills LORazepam (ATIVAN) 0.5 mg 120 tablet 2 Sig: Take 2 tablets by mouth two times a day for 90 days. Roxanne Kohli January 21, 2024 4:08 PM documented in this encounter [facility] 01-21-2024 Telephone encounter Note Prescription Refill Information The patient has been identified by name and date of : Yes Caregiver verified no other encounters exist for this prescription request: Yes Caregiver confirmed with patient/requestor that no other refills are due, in the near future, with this provider at this time: Yes The last office visit in the department: 11-10-23 Does the patient have a future office visit with this provider/department: No Requested Prescriptions Pending Prescriptions Disp Refills LORazepam (ATIVAN) 0.5 mg 120 tablet 2 Sig: Take 2 tablets by mouth two times a day for 90 days. Roxanne Kohli January 21, 2024 4:08 PM [facility] 12-29-2023 Telephone encounter Note The following approved medication requests have been transmitted electronically. Requested Prescriptions Pending Prescriptions Disp Refills glimepiride (AMARYL) 4 mg tablet 180 tablet 3 Sig: Take 1 tablet by mouth two times a day with meals. Bahman Edmonds APRN.CNP [facility] 12-29-2023 Miscellaneous Notes The following approved medication requests have been transmitted electronically. Requested Prescriptions Pending Prescriptions Disp Refills glimepiride (AMARYL) 4 mg tablet 180 tablet 3 Sig: Take 1 tablet by mouth two times a day with meals. Bahman Edmonds APRN.CNP Prescription Refill Information The patient has been identified by name and date of : Yes Caregiver verified no other encounters exist for this prescription request: Yes Caregiver confirmed with patient/requestor that no other refills are due, in the near future, with this provider at this time: Yes The last office visit in the department: 11/10/23 Does the patient have a future office visit with this provider/department: Yes Requested Prescriptions Pending Prescriptions Disp Refills glimepiride (AMARYL) 4 mg tablet 180 tablet 3 Sig: Take 1 tablet by mouth two times a day with meals. James Perez LPN December 29, 2023 11:59 AM Prescription Refill Information The patient has been identified by name and date of : Yes Caregiver verified no other encounters exist for this prescription request: Yes Caregiver confirmed with patient/requestor that no other refills are due, in the near future, with this provider at this time: Yes The last office visit in the department: 11/10/23 Does the patient have a future office visit with this provider/department: No Requested Prescriptions Pending Prescriptions Disp Refills glimepiride (AMARYL) 4 mg tablet 180 tablet 3 Sig: Take 1 tablet by mouth two times a day with meals. Nicky Kohli December 29, 2023 11:54 AM documented in this encounter [facility] 12-29-2023 Telephone encounter Note Prescription Refill Information The patient has been identified by name and date of : Yes Caregiver verified no other encounters exist for this prescription request: Yes Caregiver confirmed with patient/requestor that no other refills are due, in the near future, with this provider at this time: Yes The last office visit in the department: 11/10/23 Does the patient have a future office visit with this provider/department: Yes Requested Prescriptions Pending Prescriptions Disp Refills glimepiride (AMARYL) 4 mg tablet 180 tablet 3 Sig: Take 1 tablet by mouth two times a day with meals. James Perez LPN December 29, 2023 11:59 AM [facility] 12-29-2023 Telephone encounter Note Prescription Refill Information The patient has been identified by name and date of : Yes Caregiver verified no other encounters exist for this prescription request: Yes Caregiver confirmed with patient/requestor that no other refills are due, in the near future, with this provider at this time: Yes The last office visit in the department: 11/10/23 Does the patient have a future office visit with this provider/department: No Requested Prescriptions Pending Prescriptions Disp Refills glimepiride (AMARYL) 4 mg tablet 180 tablet 3 Sig: Take 1 tablet by mouth two times a day with meals. Nicky Kohli December 29, 2023 11:54 AM [facility] 12-23-2023 History of Present illness Narrative RADIOLOGY SERVICE PROGRESS NOTE SERVICE DATE: 12/23/2023 SERVICE TIME: 3:01 PM PATIENT IDENTITY VERIFICATION COMPLETED USING TWO (2) STANDARD IDENTIFIERS: Name and Date of confirmed by patient verbally and Name and Date of confirmed by identification band FALL SCREENING: Has the patient had 2 falls in the last year or 1 fall with injury or currently using an Ambulatory Assistive Device (Walker, Cane, Wheelchair, Crutches, etc.)? 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 This equation utilizes serum creatinine, sex, and age as parameters. The creatinine assay has traceable calibration to isotope dilution-mass spectrometry. Refer to KDIGO guidelines for clinical interpretation. In patients with unstable renal function, e.g. those with acute kidney injury, the eGFR may not accurately reflect actual GFR. eGFR- Date Value Ref Range Status 04/20/2021 >60 Final P.O.C.T. RESULTS: N/A December 23, [address] PERFORMED: No IV SITE: Ambulatory: A peripheral IV was started in the Left antecubital site with a Angio cath: 22 gauge. POST EXAM PIV STATUS: Discontinued PROCEDURE TYPE: NM Stress: 16.3 mCi [id number] was administered IV for Rest Imaging at 14:04 by [facility]. 50.3 mCi [id number] was administered IV for Stress Imaging at 14:55 by [facility]. PATIENT DISCHARGED TO: Ambulatory patient, left NM department area. A Diagnostic radioactive procedure has taken place, with no further precautions necessary other than routine body substance precautions. More information regarding radiation safety can be found using this link: [email or web address] SIGNATURE: RT Devon(R) PATIENT NAME: Camila Harmon DATE: December 23, 2023 TIME: 3:01 PM PAGER/CONTACT #: documented in this encounter [facility] 12-23-2023 Note HNO ID: [id number] Author: BIA ROMERO RT(R) Service: Nuclear Medicine Author Type: Technologist Type: Progress Notes Filed: 12/23/2023 15:06 Note Text: RADIOLOGY SERVICE PROGRESS NOTE SERVICE DATE: 12/23/2023 SERVICE TIME: 3:01 PM PATIENT IDENTITY VERIFICATION COMPLETED USING TWO (2) STANDARD IDENTIFIERS: Name and Date of confirmed by patient verbally and Name and Date of confirmed by identification band FALL SCREENING: Has the patient had 2 falls in the last year or 1 fall with injury or currently using an Ambulatory Assistive Device (Walker, Cane, Wheelchair, Crutches, etc.)? No PATIENT GENDER DATA: .female : No ALLERGIES: Reviewed and unchanged MEDICATIONS REVIEWED: Not applicable PATIENT RELEVANT IMPLANT DATA REVIEWED: Not Applicable PATIENT PRESENTS WITH AN IMPLANTABLE OR ATTACHED POUL[employer] F[employer] LAB[employer]ER: No CREATININE: Creatinine Date Value Ref Range Status 10/07/2023 0.78 0.58 - 0.96 mg/dL Final 09/27/2023 0.91 0.58 - 0.96 mg/dL Final 04/12/2023 0.78 0.58 - 0.96 mg/dL Final Estimated Glomerular Filtration Rate Date Value Ref Range Status 10/07/2023 87 >=60 mL/min/1.73m? Final Comment: Estimated Glomerular Filtration Rate (eGFR) is calculated using the 2020 CKD-EPI creatinine equation. This equation utilizes serum creatinine, sex, and age as parameters. The creatinine assay has traceable calibration to isotope dilution-mass spectrometry. Refer to KDIGO guidelines for clinical interpretation. In patients with unstable renal function, e.g. those with acute kidney injury, the eGFR may not accurately reflect actual GFR. eGFR- Date Value Ref Range Status 04/20/2021 >60 Final P.O.C.T. RESULTS: N/A December 23, [address] PERFORMED: No IV SITE: Ambulatory: A peripheral IV was started in the Left antecubital site with a Angio cath: 22 gauge. POST EXAM PIV STATUS: Discontinued PROCEDURE TYPE: NM Stress: 16.3 mCi [id number] was administered IV for Rest Imaging at 14:04 by [facility]. 50.3 mCi [id number] was administered IV for Stress Imaging at 14:55 by Charis. PATIENT DISCHARGED TO: Ambulatory patient, left [place] department area. A Diagnostic radioactive procedure has taken place, with no further precautions necessary other than routine body substance precautions. More information regarding radiation safety can be found using this link: [email or web address] SIGNATURE: Bia Romero RT(R) PATIENT NAME: Camila Harmon DATE: December 23, 2023 TIME: 3:01 PM PAGER/CONTACT #: [facility] 12-22-2023 Telephone encounter Note Left message regarding reminder and instructions for stress test tomorrow. This included where to check in, length of test and no caffeine for 12 hours prior to test. [facility] 12-22-2023 Miscellaneous Notes Left message regarding reminder and instructions for stress test tomorrow. This included where to check in, length of test and no caffeine for 12 hours prior to test. documented in this encounter [facility] 12-10-2023 Note HNO ID: [id number] Author: SAMRA DICKENS APRN.FIDEL Service: ? Author Type: Nurse Practitioner Type: Progress Notes Filed: 12/10/2023 10:23 Note Text: Patient did not log in for their virtual intake with the provider. She did not supervisor opening and picking her phone when she was contacted prior to the appointment. [facility] 12-10-2023 History of Present illness Narrative Patient did not log in for their virtual intake with the provider. She did not supervisor opening and picking her phone when she was contacted prior to the appointment. documented in this encounter [facility] 12-09-2023 History of Present illness Narrative Images from the original note were not included. [facility] SECTION OF REGIONAL CARDIOLOGY OUTPATIENT VISIT DATE 12/09/2023 OUTPATIENT VISIT TYPE ESTABLISHED PRIMARY CARE PHYSICIAN: Emily Wang [address] [place] [address] HISTORY OF PRESENT ILLNESS: Ms. Harmon is a 63 year old female, history of hypertension, hyperlipidemia, family history of premature CAD, CAD s/p PCI in 2010 and 2008, 1-2+, TR, FLOR, DM, presents for follow-up visit. Previously seen by Dr. Nash 10/21/2022 Cath 02/11/22: patent stents in the proximal to mid LAD with mild in-stent restenosis. Bifurcation stenting into the first large diagonal branch with an ostial 50-60% in-stent restenosis. Otherwise mild diffuse disease. Normal LVEDP. The LAD and left circumflex nearly arise from separate ostia. She reports SOB with lifting heavy palettes. She had an episode of chest pain 3 months ago while lifting palettes and had to take a sl nitro. She experiences intermittent chest pain and SOB. PAST MEDICAL HISTORY Diagnosis Date Coronary artery disease Depressive disorder, not elsewhere classified Enlarged liver Excessive or frequent menstruation 07/06/2004 s/p TVH Migraine with aura, without mention of intractable migraine without mention of status migrainosus Other anxiety states Pure hypercholesterolemia S/P primary angioplasty with coronary stent 11/06/2008 Type II or unspecified type diabetes mellitus without mention of complication, not stated as uncontrolled PAST SURGICAL HISTORY Procedure Laterality Date CARPAL TUNNEL Bilateral 03/05/2017 COLONOSCOPY FLX DX W/COLLJ SPEC WHEN PFRMD 07/19/2013 Colonoscopy EXTRACTION, ERUPTED TOOTH OR EXPOSED ROOT (ELEVATION AND/OR FORCEPS REMOVAL) wisdom teeth HEART CATHETERIZATION N/A 02/11/2022 HYSTERECTOMY HX PAST SURGICAL HISTORY OF 02/22/2002 BREAST REDUCTION PAST SURGICAL HISTORY OF 2008, 2011 stent, LAD X2. VAGINAL HYSTERECTOMY UTERUS 250 GM/< 07/2004 Hysterectomy, vaginal Social History Tobacco Use Smoking status: Former Current packs/day: 0.00 Types: Cigarettes Start date: 06/02/2017 Quit date: 06/02/2020 Years since quittin.5 Smokeless tobacco: Never Tobacco comments: social smoking for 3 years. Occasional smoking when upset Vaping Use Vaping status: Never Used Substance Use Topics Alcohol use: Yes Comment: Socially Drug use: No FAMILY HISTORY Problem Relation Age of Onset Hypertension Mother Diabetes Mother Heart Mother [place], age 72; first dx age late 60's Lipids Mother Stroke Mother Blindness Mother Hypertension Father Lipids Father Diabetes Father ALLERGIES Allergen Reactions Penicillins Hives Percocet [Oxycodone* GI Upset Tylenol-Codeine Prrena* Other: See Comments halucinations CURRENT MEDICATIONS: PARoxetine (PAXIL) 40 mg tablet Take 1 tablet by mouth once daily. pantoprazole DR (PROTONIX) 40 mg tablet Take 1 tablet by mouth daily before breakfast. Take on empty stomach, 1/2 hr before meal. PARoxetine (PAXIL) 10 mg tablet Take 1 tablet by mouth once daily. Take along with Paxil 40 mg tablet LORazepam (ATIVAN) 0.5 mg Take 2 tablets by mouth two times a day for 90 days. metFORMIN (GLUCOPHAGE) 500 mg tablet Take 1 tablet by mouth two times a day with meals. empagliflozin (JARDIANCE) 25 mg tablet Take 1 tablet once daily in the morning tirzepatide (MOUNJARO) 15 mg/0.5 mL pen injector Inject 15 mg subcutaneously one time a week. cyanocobalamin (VITAMIN B-12) 1,000 mcg tab Take 1 tablet by mouth once daily. cholecalciferol (VITAMIN D-3) 5,000 unit tab Take 1 tablet by mouth once daily. esomeprazole (NEXIUM) 20 mg capsule Take 20 mg by mouth daily at 6 am. Blood-Glucose Sensor ([employer] [place] G7 SENSOR) john CHANGE SENSOR EVERY 10 days USE FOR CONTINUOUS GLUCOSE MONITORING. E11.9 ondansetron orally disintegrating (ZOFRAN ODT) 4 mg disintegrating tablet Take 1 tablet by mouth every 6 hours as needed for nausea/vomiting. lisinopril (ZESTRIL) 20 mg tablet Take 1 tablet by mouth two times a day. atorvastatin (LIPITOR) 80 mg tablet Take 1 tablet by mouth daily at bedtime for cholesterol. atenolol (TENORMIN) 100 mg tablet Take 1 tablet by mouth once daily. magnesium oxide (MAG-OX) 400 mg (241.3 mg magnesium) tablet Take 1 tablet by mouth two times a day. nitroglycerin sublingual (NITROQUICK) 0.4 mg SL tablet Dissolve 1 tablet under the tongue as needed. FOR CHEST PAIN. IF NO RELIEF CALL 911 blood sugar diagnostic (BLOOD GLUCOSE TEST) test strip Test blood sugar(s) one times daily. Dx: Type 2 DM - Uncontrolled E11. Insulin: No glimepiride (AMARYL) 4 mg tablet Take 1 tablet by mouth twice daily with meals. ezetimibe (ZETIA) 10 mg tablet Take 1 tablet by mouth once daily. cyclobenzaprine (FLEXERIL) 10 mg tablet Take 1 tablet by mouth three times daily as needed for muscle spasm. promethazine (PHENERGAN) 25 mg tablet Take 1 tablet by mouth every 6 hours as needed for nausea/vomiting. meclizine (ANTIVERT) 25 mg tab Take 1 tablet by mouth three times daily as needed. hydrOXYzine HCl (ATARAX) 25 mg tablet Take 1 tablet by mouth every 6 hours as needed for anxiety. busPIRone (BUSPAR) 15 mg tablet Take 1 tablet by mouth three times daily. Blood-Glucose Meter Test blood sugar(s) 1 times daily. Dx: Type 2 DM - Uncontrolled Insulin: No Lancets lancets Test blood sugar(s) 1 times daily. Dx: Type 2 DM - Uncontrolled . Insulin: No albuterol HFA (PROVENTIL HFA, VENTOLIN HFA) 90 mcg/actuation inhaler Inhale 2 Puffs as instructed every 4 hours as needed for wheezing/shortness of breath. diclofenac (VOLTAREN) 1 % topical gel Apply 2 g to affected area four times daily. Lancets lancets Test blood sugar(s) 1 times daily. Dx: E11.65. Insulin: No aspirin 81 mg chewable tablet Take 81 mg by mouth once daily. Blood-Glucose Meter monitoring kit Glucose Meter of Choice - Kit - Dx: Type 2 DM - Uncontrolled . multivitamins(DAILY MULTIVITAMIN TAB) Take one(1) tablet daily. Fenofibrate 40 mg tab Take 1 tablet by mouth once daily. gabapentin (NEURONTIN) 300 mg capsule Take 1 capsule by mouth two times a day for 180 days. PHYSICAL EXAMINATION: BP 118/78 Pulse 75 Wt 90.1 kg (198 lb 10.2 oz) SpO2 99% BMI 37.53 kg/m General: Appears comfortable in no apparent cardiopulmonary distress Neck: No JVD, no bruits CVS: S1, S2, No m/r/g Chest: CTAB Abd: Soft, nontender, no masses, BS present Ext: No pedal edema, pedal pulses 2+ bilaterally Neuro: No focal neurological deficits CARDIOVASCULAR MEDICINE TESTING: Last EKG Result Conclusion EKG Collected: 10/07/2023 6:22 PM (Preliminary result) Impression: NORMAL SINUS RHYTHM NORMAL ECG ASSESSMENT/PLAN: 1. Coronary artery disease due to lipid rich plaque - ICD9: 414.00, 414.3, ICD10: I25.10, I25.83 (primary diagnosis) She reports having to take sl nitro intermittently for chest pain. Recent lipid panel-triglycerides 620. Unable to calculate LDL - Obtain NM CARDIAC PERF STRESS/PHARM - Obtain ECHO - We discussed starting imdur in place of sl nitro. She is declining and will keep us updated on her symptoms. - On aspirin 81 mg po daily - On atorvastatin 80 mg daily - On Zetia 10 mg p.o. daily - Fenofibrate 40 mg p.o. daily. Check lipids and LFTs in 4 to 6 weeks. - We discussed low cholesterol diet- avoid red meats and processed foods, focus on lean portions of white meat- chicken and turkey breast, fish, healthy nuts, fruits, vegetables. - Goal for exercise- gradually achieving at least 30 minutes of moderate intensity aerobic exercise 5 times per week-biking, brisk walking, hiking, swimming, rowing. 2. Hypertriglyceridemia - ICD9: 272.1, ICD10: E78.1 - FENOFIBRATE 40 MG TABLET. Monitor for any myalgias. Check CK, lipids, LFTs - On zetia, atorvastatin. - Advised on low fat diet - Diabetes mellitus management per her PCP 4. SOB (shortness of breath) - ICD9: 786.05, ICD10: R06.02 - NM CARDIAC PERF STRESS/PHARM - ECHO - She would like to f/u in 4-6 weeks to r/v results Hawa Padron MD, [facility] documented in this encounter [facility] 12-09-2023 Note HNO ID: [id number] Author: HAWA PADRON MD Service: ? Author Type: Physician Type: Progress Notes Filed: 12/09/2023 16:50 Note Text: [facility] SECTION OF REGIONAL CARDIOLOGY OUTPATIENT VISIT DATE 12/09/2023 OUTPATIENT VISIT TYPE ESTABLISHED PRIMARY CARE PHYSICIAN: Emily Wang [address] [place] [address] HISTORY OF PRESENT ILLNESS: Ms. Harmon is a 63 year old female, history of hypertension, hyperlipidemia, family history of premature CAD, CAD s/p PCI in 2010 and 2008, 1-2+, TR, FLOR, DM, presents for follow-up visit. Previously seen by Dr. Nash 10/21/2022 Cath 02/11/22: patent stents in the proximal to mid LAD with mild in-stent restenosis. Bifurcation stenting into the first large diagonal branch with an ostial 50-60% in-stent restenosis. Otherwise mild diffuse disease. Normal LVEDP. The LAD and left circumflex nearly arise from separate ostia. She reports SOB with lifting heavy palettes. She had an episode of chest pain 3 months ago while lifting palettes and had to take a sl nitro. She experiences intermittent chest pain and SOB. PAST MEDICAL HISTORY Diagnosis Date Coronary artery disease Depressive disorder, not elsewhere classified Enlarged liver Excessive or frequent menstruation 07/06/2004 s/p TVH Migraine with aura, without mention of intractable migraine without mention of status migrainosus Other anxiety states Pure hypercholesterolemia S/P primary angioplasty with coronary stent 11/06/2008 Type II or unspecified type diabetes mellitus without mention of complication, not stated as uncontrolled PAST SURGICAL HISTORY Procedure Laterality Date CARPAL TUNNEL Bilateral 03/05/2017 COLONOSCOPY FLX DX W/COLLJ SPEC WHEN PFRMD 07/19/2013 Colonoscopy EXTRACTION, ERUPTED TOOTH OR EXPOSED ROOT (ELEVATION AND/OR FORCEPS REMOVAL) wisdom teeth HEART CATHETERIZATION N/A 02/11/2022 HYSTERECTOMY HX PAST SURGICAL HISTORY OF 02/22/2002 BREAST REDUCTION PAST SURGICAL HISTORY OF 2008, 2011 stent, LAD X2. VAGINAL HYSTERECTOMY UTERUS 250 GM/< 07/2004 Hysterectomy, vaginal Social History Tobacco Use Smoking status: Former Current packs/day: 0.00 Types: Cigarettes Start date: 06/02/2017 Quit date: 06/02/2020 Years since quittin.5 Smokeless tobacco: Never Tobacco comments: social smoking for 3 years. Occasional smoking when upset Vaping Use Vaping status: Never Used Substance Use Topics Alcohol use: Yes Comment: Socially Drug use: No FAMILY HISTORY Problem Relation Age of Onset Hypertension Mother Diabetes Mother Heart Mother [place], age 72; first dx age late 60's Lipids Mother Stroke Mother Blindness Mother Hypertension Father Lipids Father Diabetes Father ALLERGIES Allergen Reactions Penicillins Hives Percocet [Oxycodone* GI Upset Tylenol-Codeine Prerna* Other: See Comments halucinations CURRENT MEDICATIONS: PARoxetine (PAXIL) 40 mg tablet Take 1 tablet by mouth once daily. pantoprazole DR (PROTONIX) 40 mg tablet Take 1 tablet by mouth daily before breakfast. Take on empty stomach, 1/2 hr before meal. PARoxetine (PAXIL) 10 mg tablet Take 1 tablet by mouth once daily. Take along with Paxil 40 mg tablet LORazepam (ATIVAN) 0.5 mg Take 2 tablets by mouth two times a day for 90 days. metFORMIN (GLUCOPHAGE) 500 mg tablet Take 1 tablet by mouth two times a day with meals. empagliflozin (JARDIANCE) 25 mg tablet Take 1 tablet once daily in the morning tirzepatide (MOUNJARO) 15 mg/0.5 mL pen injector Inject 15 mg subcutaneously one time a week. cyanocobalamin (VITAMIN B-12) 1,000 mcg tab Take 1 tablet by mouth once daily. cholecalciferol (VITAMIN D-3) 5,000 unit tab Take 1 tablet by mouth once daily. esomeprazole (NEXIUM) 20 mg capsule Take 20 mg by mouth daily at 6 am. Blood-Glucose Sensor ([employer] G7 SENSOR) john CHANGE SENSOR EVERY 10 days USE FOR CONTINUOUS GLUCOSE MONITORING. E11.9 ondansetron orally disintegrating (ZOFRAN ODT) 4 mg disintegrating tablet Take 1 tablet by mouth every 6 hours as needed for nausea/vomiting. lisinopril (ZESTRIL) 20 mg tablet Take 1 tablet by mouth two times a day. atorvastatin (LIPITOR) 80 mg tablet Take 1 tablet by mouth daily at bedtime for cholesterol. atenolol (TENORMIN) 100 mg tablet Take 1 tablet by mouth once daily. magnesium oxide (MAG-OX) 400 mg (241.3 mg magnesium) tablet Take 1 tablet by mouth two times a day. nitroglycerin sublingual (NITROQUICK) 0.4 mg SL tablet Dissolve 1 tablet under the tongue as needed. FOR CHEST PAIN. IF NO RELIEF CALL 911 blood sugar diagnostic (BLOOD GLUCOSE TEST) test strip Test blood sugar(s) one times daily. Dx: Type 2 DM - Uncontrolled E11.65 Insulin: No glimepiride (AMARYL) 4 mg tablet Take 1 tablet by mouth twice daily with meals. ezetimibe (ZETIA) 10 mg tablet Take 1 tablet by mouth once daily. cyclobenzaprine (FLEXERIL) 10 m (more content not included)... [facility] 11-10-2023 Instructions Aileen Quintanilla APRN.FIDEL - 11/10/2023 5:25 PM EDT Take 2nd dose of diflucan today. If symptoms do not improve in the next 3 days start additional diflucan, 1 time daily for 5 days May continue with monistat on the outside for itching , may consider a women's probiotic Complete ultrasound Follow up pending test results or sooner as needed. documented in this encounter [facility] 11-10-2023 History of Present illness Narrative This is a 63 year old female who presents today with: Patient presents with: Acute Visit: vaginal discompfort HISTORY OF PRESENT ILLNESS: Camila Harmon is a 63 year old female. Patient presents with: Acute Visit: vaginal discompfort Here in the office for vaginal pain. Symptoms started the past 2 weeks, [facility], self swab was negative for BV but came back positive for Jakob. Given rx for diflucan, symptoms did not improve with 1 tablet, refers that she will take second tablet tonight. Denies any urinary symptoms. White thick vaginal discharge. Refers that she did have scant amount of vaginal bleeding with wiping. History of uncontrolled diabetes. Sugars have been in the 150's at home. PAST MEDICAL HISTORY: PAST MEDICAL HISTORY No date: Coronary artery disease No date: Depressive disorder, not elsewhere classified No date: Enlarged liver 07/06/2004: Excessive or frequent menstruation Comment: s/p TVH No date: Migraine with aura, without mention of intractable migraine without mention of status migrainosus No date: Other anxiety states No date: Pure hypercholesterolemia 11/06/2008: S/P primary angioplasty with coronary stent No date: Type II or unspecified type diabetes mellitus without mention of complication, not stated as uncontrolled PAST SURGICAL HISTORY 03/05/2017: CARPAL TUNNEL; Bilateral 07/19/2013: COLONOSCOPY FLX DX W/COLLJ SPEC WHEN PFRMD Comment: Colonoscopy No date: EXTRACTION, ERUPTED TOOTH OR EXPOSED ROOT (ELEVATION AND/OR FORCEPS REMOVAL) Comment: wisdom teeth 02/11/2022: HEART CATHETERIZATION; N/A No date: HYSTERECTOMY HX 02/22/2002: PAST SURGICAL HISTORY OF Comment: BREAST REDUCTION 2008, 2011: PAST SURGICAL HISTORY OF Comment: stent, LAD X2. 07/2004: VAGINAL HYSTERECTOMY UTERUS 250 GM/< Comment: Hysterectomy, vaginal ALLERGIES Penicillins, Percocet [Oxycodone-Acetaminophen], and Tylenol-Codeine Elixir MEDICATIONS Current Outpatient Medications Medication Sig PARoxetine (PAXIL) 40 mg tablet Take 1 tablet by mouth once daily. pantoprazole DR (PROTONIX) 40 mg tablet Take 1 tablet by mouth daily before breakfast. Take on empty stomach, 1/2 hr before meal. PARoxetine (PAXIL) 10 mg tablet Take 1 tablet by mouth once daily. Take along with Paxil 40 mg tablet LORazepam (ATIVAN) 0.5 mg Take 2 tablets by mouth two times a day for 90 days. metFORMIN (GLUCOPHAGE) 500 mg tablet Take 1 tablet by mouth two times a day with meals. empagliflozin (JARDIANCE) 25 mg tablet Take 1 tablet once daily in the morning tirzepatide (MOUNJARO) 15 mg/0.5 mL pen injector Inject 15 mg subcutaneously one time a week. cyanocobalamin (VITAMIN B-12) 1,000 mcg tab Take 1 tablet by mouth once daily. cholecalciferol (VITAMIN D-3) 5,000 unit tab Take 1 tablet by mouth once daily. esomeprazole (NEXIUM) 20 mg capsule Take 20 mg by mouth daily at 6 am. Blood-Glucose Sensor ([employer] G7 SENSOR) john CHANGE SENSOR EVERY 10 days USE FOR CONTINUOUS GLUCOSE MONITORING. E11.9 (Patient not taking: Reported on 08/11/2023) ondansetron orally disintegrating (ZOFRAN ODT) 4 mg disintegrating tablet Take 1 tablet by mouth every 6 hours as needed for nausea/vomiting. lisinopril (ZESTRIL) 20 mg tablet Take 1 tablet by mouth two times a day. atorvastatin (LIPITOR) 80 mg tablet Take 1 tablet by mouth daily at bedtime for cholesterol. atenolol (TENORMIN) 100 mg tablet Take 1 tablet by mouth once daily. gabapentin (NEURONTIN) 300 mg capsule Take 1 capsule by mouth two times a day for 180 days. magnesium oxide (MAG-OX) 400 mg (241.3 mg magnesium) tablet Take 1 tablet by mouth two times a day. nitroglycerin sublingual (NITROQUICK) 0.4 mg SL tablet Dissolve 1 tablet under the tongue as needed. FOR CHEST PAIN. IF NO RELIEF CALL 911 blood sugar diagnostic (BLOOD GLUCOSE TEST) test strip Test blood sugar(s) one times daily. Dx: Type 2 DM - Uncontrolled E11.65 Insulin: No glimepiride (AMARYL) 4 mg tablet Take 1 tablet by mouth twice daily with meals. ezetimibe (ZETIA) 10 mg tablet Take 1 tablet by mouth once daily. cyclobenzaprine (FLEXERIL) 10 mg tablet Take 1 tablet by mouth three times daily as needed for muscle spasm. promethazine (PHENERGAN) 25 mg tablet Take 1 tablet by mouth every 6 hours as needed for nausea/vomiting. (Patient not taking: Reported on 06/10/2023) meclizine (ANTIVERT) 25 mg tab Take 1 tablet by mouth three times daily as needed. hydrOXYzine HCl (ATARAX) 25 mg tablet Take 1 tablet by mouth every 6 hours as needed for anxiety. busPIRone (BUSPAR) 15 mg tablet Take 1 tablet by mouth three times daily. Blood-Glucose Meter Test blood sugar(s) 1 times daily. Dx: Type 2 DM - Uncontrolled E11.65 Insulin: No Lancets lancets Test blood sugar(s) 1 times daily. Dx: Type 2 DM - Uncontrolled E11.65 Insulin: No albuterol HFA (PROVENTIL HFA, VENTOLIN HFA) 90 mcg/actuation inhaler Inhale 2 Puffs as instructed every 4 hours as needed for wheezing/shortness of breath. (Patient not taking: Reported on 06/10/2023) diclofenac (VOLTAREN) 1 % topical gel Apply 2 g to affected area four times daily. Lancets lancets Test blood sugar(s) 1 times daily. Dx: E11.65. Insulin: No aspirin 81 mg chewable tablet Take 81 mg by mouth once daily. Blood-Glucose Meter monitoring kit Glucose Meter of Choice - Kit - Dx: Type 2 DM - Uncontrolled E11.65 multivitamins(DAILY MULTIVITAMIN TAB) Take one(1) tablet daily. No current facility-administered medications for this visit. FAMILY HISTORY Problem Relation Age of Onset Hypertension Mother Diabetes Mother Heart Mother [place], age 72; first dx age late 60's Lipids Mother Stroke Mother Blindness Mother Hypertension Father Lipids Father Diabetes Father Social History Tobacco Use Smoking status: Former Current packs/day: 0.00 Types: Cigarettes Start date: 06/02/2017 Quit date: 06/02/2020 Years since quittin.4 Smokeless tobacco: Never Tobacco comments: social smoking for 3 years. Occasional smoking when upset Vaping Use Vaping status: Never Used Substance Use Topics Alcohol use: Yes Comment: Socially Drug use: No REVIEW OF SYSTEMS GENERAL: No weight loss, malaise or fevers/chills HEENT: Negative for frequent or significant headaches, No changes in hearing or vision. NECK: Negative for lumps, goiter, pain and significant neck swelling RESPIRATORY: Negative for cough, hemoptysis, wheezing, dyspnea or shortness of breath CARDIOVASCULAR: Negative for chest pain, leg swelling, orthopnea, or palpitations GI: No nausea, vomiting, or diarrhea/constipation. No hematochezia/melena. No heartburn or reflux symptoms. : No history of dysuria, frequency or incontinence + Vaginal bleeding, vaginal discharge/pain MUSCULOSKELETAL: Negative for joint pain or swelling. SKIN: Negative for lesions, rash, and itching ENDOCRINE: Negative for cold or heat intolerance, polyuria, polydipsia and goiter NEURO: No history of headaches, syncope, paralysis, seizures or tremors MOOD: Negative for depression, anxiety, or suicidal ideation. EXAM: BP 130/80 Pulse 81 Resp 16 Wt 90.1 kg (198 lb 10.2 oz) SpO2 96% BMI 37.53 kg/m PHYSICAL EXAM: General Appearance: Well appearing, alert, in no acute distress, well-hydrated, well nourished. Skin: Skin color, texture, turgor normal, no suspicious rashes or lesions. Head: Normocephalic, no masses, lesions, tenderness or abnormalities. Abdomen: Abdomen soft, non-tender. Bowel sounds normal. No masses, organomegaly. Extremities: No deformities, edema, skin discoloration, clubbing or cyanosis. Good capillary refill. Peripheral Pulses: Normal, Capillary refill <2secs, strong peripheral pulses, Pulses palpable. Neurologic: Gait normal. Sensation grossly intact. Pelvic: Positive findings: white, thick vaginal discharge - pain with bimanual exam. ASSESSMENT/PLAN: 1. Vaginal yeast infection - ICD9: 112.1, ICD10: B37.31 (primary diagnosis) - Instructed to take second tablet of fluconazole. If symptoms do not improve in the next 3 days instructed to take fluconazole daily for 5 days. - May consider starting a women's probiotic. - May use Monistat as needed for itching. - FLUCONAZOLE 100 MG TABLET 2. Vaginal bleeding - ICD9: 623.8, ICD10: N93.9 - US FEMALE PELVIS TRANSABD LTD - US FEMALE PELVIS TRANSVAG Follow-up if no improvement. Discussed treatment plan and patient voices understanding. Patient's questions answered appropriately. Medications and potential side effects were discussed and patient voices understanding. Aileen Quintanilla APRN.FIDEL This note was partially generated using [employer] voice recognition system. Note was reviewed for accuracy. There may be minor misspellings or grammar miscues with [employer] voice recognition. documented in this encounter [facility] 11-10-2023 Note HNO ID: [id number] Author: AILEEN QUINTANILLA APRN.CNP Service: ? Author Type: Nurse Practitioner Type: Progress Notes Filed: 11/10/2023 18:56 Note Text: This is a 63 year old female who presents today with: Patient presents with: Acute Visit: vaginal discompfort HISTORY OF PRESENT ILLNESS: Camila Harmon is a 63 year old female. Patient presents with: Acute Visit: vaginal discompfort Here in the office for vaginal pain. Symptoms started the past 2 weeks, [facility], self swab was negative for BV but came back positive for Jakob. Given rx for diflucan, symptoms did not improve with 1 tablet, refers that she will take second tablet tonight. Denies any urinary symptoms. White thick vaginal discharge. Refers that she did have scant amount of vaginal bleeding with wiping. History of uncontrolled diabetes. Sugars have been in the 150's at home. PAST MEDICAL HISTORY: PAST MEDICAL HISTORY No date: Coronary artery disease No date: Depressive disorder, not elsewhere classified No date: Enlarged liver 07/06/2004: Excessive or frequent menstruation Comment: s/p TVH No date: Migraine with aura, without mention of intractable migraine without mention of status migrainosus No date: Other anxiety states No date: Pure hypercholesterolemia 11/06/2008: S/P primary angioplasty with coronary stent No date: Type II or unspecified type diabetes mellitus without mention of complication, not stated as uncontrolled PAST SURGICAL HISTORY 03/05/2017: CARPAL TUNNEL; Bilateral 07/19/2013: COLONOSCOPY FLX DX W/COLLJ SPEC WHEN PFRMD Comment: Colonoscopy No date: EXTRACTION, ERUPTED TOOTH OR EXPOSED ROOT (ELEVATION AND/OR FORCEPS REMOVAL) Comment: wisdom teeth 02/11/2022: HEART CATHETERIZATION; N/A No date: HYSTERECTOMY HX 02/22/2002: PAST SURGICAL HISTORY OF Comment: BREAST REDUCTION 2008, 2011: PAST SURGICAL HISTORY OF Comment: stent, LAD X2. 07/2004: VAGINAL HYSTERECTOMY UTERUS 250 GM/< Comment: Hysterectomy, vaginal ALLERGIES Penicillins, Percocet [Oxycodone-Acetaminophen], and Tylenol-Codeine Elixir MEDICATIONS Current Outpatient Medications Medication Sig PARoxetine (PAXIL) 40 mg tablet Take 1 tablet by mouth once daily. pantoprazole DR (PROTONIX) 40 mg tablet Take 1 tablet by mouth daily before breakfast. Take on empty stomach, 1/2 hr before meal. PARoxetine (PAXIL) 10 mg tablet Take 1 tablet by mouth once daily. Take along with Paxil 40 mg tablet LORazepam (ATIVAN) 0.5 mg Take 2 tablets by mouth two times a day for 90 days. metFORMIN (GLUCOPHAGE) 500 mg tablet Take 1 tablet by mouth two times a day with meals. empagliflozin (JARDIANCE) 25 mg tablet Take 1 tablet once daily in the morning tirzepatide (MOUNJARO) 15 mg/0.5 mL pen injector Inject 15 mg subcutaneously one time a week. cyanocobalamin (VITAMIN B-12) 1,000 mcg tab Take 1 tablet by mouth once daily. cholecalciferol (VITAMIN D-3) 5,000 unit tab Take 1 tablet by mouth once daily. esomeprazole (NEXIUM) 20 mg capsule Take 20 mg by mouth daily at 6 am. Blood-Glucose Sensor ([employer] [place] G7 SENSOR) john CHANGE SENSOR EVERY 10 days USE FOR CONTINUOUS GLUCOSE MONITORING. E11.9 (Patient not taking: Reported on 08/11/2023) ondansetron orally disintegrating (ZOFRAN ODT) 4 mg disintegrating tablet Take 1 tablet by mouth every 6 hours as needed for nausea/vomiting. lisinopril (ZESTRIL) 20 mg tablet Take 1 tablet by mouth two times a day. atorvastatin (LIPITOR) 80 mg tablet Take 1 tablet by mouth daily at bedtime for cholesterol. atenolol (TENORMIN) 100 mg tablet Take 1 tablet by mouth once daily. gabapentin (NEURONTIN) 300 mg capsule Take 1 capsule by mouth two times a day for 180 days. magnesium oxide (MAG-OX) 400 mg (241.3 mg magnesium) tablet Take 1 tablet by mouth two times a day. nitroglycerin sublingual (NITROQUICK) 0.4 mg SL tablet Dissolve 1 tablet under the tongue as needed. FOR CHEST PAIN. IF NO RELIEF CALL 911 blood sugar diagnostic (BLOOD GLUCOSE TEST) test strip Test blood sugar(s) one times daily. Dx: Type 2 DM - Uncontrolled E11.65 Insulin: No glimepiride (AMARYL) 4 mg tablet Take 1 tablet by mouth twice daily with meals. ezetimibe (ZETIA) 10 mg tablet Take 1 tablet by mouth once daily. cyclobenzaprine (FLEXERIL) 10 mg tablet Take 1 tablet by mouth three times daily as needed for muscle spasm. promethazine (PHENERGAN) 25 mg tablet Take 1 tablet by mouth every 6 hours as needed for nausea/vomiting. (Patient not taking: Reported on 06/10/2023) meclizine (ANTIVERT) 25 mg tab Take 1 tablet by mouth three times daily as needed. hydrOXYzine HCl (ATARAX) 25 mg tablet Take 1 tablet by mouth every 6 hours as needed for anxiety. busPIRone (BUSPAR) 15 mg tablet Take 1 tablet by mouth three times daily. Blood-Glucose Meter Test blood sugar(s) 1 times daily. Dx: Type 2 DM - Uncontrolled E11.65 Insulin: No Lancets lancets Test blood sugar(s) 1 times daily. Dx: Type 2 DM (more content not included)... [facility] 11-09-2023 Telephone encounter Note Pt called and notified of message below from Provider, verbalized understanding. Edith Chavira MA [facility] 11-09-2023 Miscellaneous Notes Pt called and notified of message below from Provider, verbalized understanding. Edith Chavira MA The glucose in her urine is just because of her diabetes, so keep working on keeping her sugar level down. Emily Wang MD Pt called in asking about the glucose in her urine. GLUCOSE UA (POCT) Negative mg/dL >=1000 Abnormal 500 Abnormal 500 Abnormal Pt was put on Diflucan for yeast, and states she is feeling better, she is going to take the second pill. She states she had some trace blood on the toilet paper when wiping yesterday. Please call and advise. documented in this encounter [facility] 11-09-2023 Telephone encounter Note The glucose in her urine is just because of her diabetes, so keep working on keeping her sugar level down. Emily Wang MD [facility] 11-09-2023 Telephone encounter Note Pt called in asking about the glucose in her urine. GLUCOSE UA (POCT) Negative mg/dL >=1000 Abnormal 500 Abnormal 500 Abnormal Pt was put on Diflucan for yeast, and states she is feeling better, she is going to take the second pill. She states she had some trace blood on the toilet paper when wiping yesterday. Please call and advise. [facility] 11-09-2023 Telephone encounter Note notified by noc. Muna Magallon MA [facility] 11-09-2023 Miscellaneous Notes notified by noc. Muna Magallon MA Left message for patient to return call. Muna Magallon MA Please let patient know that she did test positive for yeast. Take Diflucan as prescribed at visit yesterday. documented in this encounter [facility] 11-08-2023 Telephone encounter Note Reason for Call: vaginal complaint; now has specks of blood on toilet papers; diagnosis of yeast in express care yesterday Outcome: Advised to be seen within 3 days. Caller conferenced to Kiesha in appointment center for available appointment in office of PCP. Caller also given alternate options for care including [facility], emergency department for worsening symptoms. Janeth Jennings RN Reason for Disposition Diabetes mellitus or weak immune system (e.g., HIV positive, cancer chemo, splenectomy, organ transplant, chronic steroids) Answer Assessment - Initial Assessment Questions 1. DISCHARGE: Spotting of blood on toilet paper; diagnosed with yeast infection yesterday 2. ODOR: Denies 3. ONSET: 3 weeks ago 4. RASH: Denies; reports it is itchy 5. ABDOMEN PAIN: Denies 6. ABDOMEN PAIN SEVERITY: Denies pain 7. CAUSE: Yeast infection 8. OTHER SYMPTOMS: Itching in vaginal area; a little tingling sensation when urinating; has been hot and sweaty but reports its not a fever 9. : Deferred Protocols used: Vaginal [id number] [facility] 11-08-2023 Miscellaneous Notes Reason for Call: vaginal complaint; now has specks of blood on toilet papers; diagnosis of yeast in express care yesterday Outcome: Advised to be seen within 3 days. Caller conferenced to [facility] in appointment center for available appointment in office of PCP. Caller also given alternate options for care including [facility], emergency department for worsening symptoms. Janeth Jennings RN Reason for Disposition Diabetes mellitus or weak immune system (e.g., HIV positive, cancer chemo, splenectomy, organ transplant, chronic steroids) Answer Assessment - Initial Assessment Questions 1. DISCHARGE: Spotting of blood on toilet paper; diagnosed with yeast infection yesterday 2. ODOR: Denies 3. ONSET: 3 weeks ago 4. RASH: Denies; reports it is itchy 5. ABDOMEN PAIN: Denies 6. ABDOMEN PAIN SEVERITY: Denies pain 7. CAUSE: Yeast infection 8. OTHER SYMPTOMS: Itching in vaginal area; a little tingling sensation when urinating; has been hot and sweaty but reports its not a fever 9. : Deferred Protocols used: Vaginal [id number] documented in this encounter [facility] 11-08-2023 Telephone encounter Note Left message for patient to return call. Muna Magallon MA [facility] 11-08-2023 Telephone encounter Note Please let patient know that she did test positive for yeast. Take Diflucan as prescribed at visit yesterday. [facility] Work Phone: 11-07-2023 Note HNO ID: [id number] Author: ISAIAH RODRIGUEZ PA Service: ? Author Type: [facility] [employer] Type: Progress Notes Filed: 11/07/2023 10:23 Note Text: This note was created using [employer]. Subjective Camila Harmon is a 63 year old female. HPI 63-year-old female presents for vaginal itching, vaginal discharge, dysuria. Patient states she has had vaginal itching for the past 3 weeks. She thinks she may have a yeast infection. She states she has been using Monistat [id number]. Last used Monistat 2 days ago. She states that her vagina is very itchy and she has white chunky discharge. Patient does have history of diabetes and states her sugars been slightly elevated today. She denies any concern for STD. Patient reports she has had some burning with urination. She has had UTIs in the past. She has had urinary urgency and frequency as well. No abdominal pain or back pain. No fevers. No vomiting. She denies any other complaint. Checked her sugar prior to arrival and it was 235. PAST MEDICAL HISTORY No date: Coronary artery disease No date: Depressive disorder, not elsewhere classified No date: Enlarged liver 07/06/2004: Excessive or frequent menstruation Comment: s/p TVH No date: Migraine with aura, without mention of intractable migraine without mention of status migrainosus No date: Other anxiety states No date: Pure hypercholesterolemia 11/06/2008: S/P primary angioplasty with coronary stent No date: Type II or unspecified type diabetes mellitus without mention of complication, not stated as uncontrolled PAST SURGICAL HISTORY 03/05/2017: CARPAL TUNNEL; Bilateral 07/19/2013: COLONOSCOPY FLX DX W/COLLJ SPEC WHEN PFRMD Comment: Colonoscopy No date: EXTRACTION, ERUPTED TOOTH OR EXPOSED ROOT (ELEVATION AND/OR FORCEPS REMOVAL) Comment: wisdom teeth 02/11/2022: HEART CATHETERIZATION; N/A No date: HYSTERECTOMY HX 02/22/2002: PAST SURGICAL HISTORY OF Comment: BREAST REDUCTION 2008, 2011: PAST SURGICAL HISTORY OF Comment: stent, LAD X2. 07/2004: VAGINAL HYSTERECTOMY UTERUS 250 GM/< Comment: Hysterectomy, vaginal ALLERGIES Penicillins, Percocet [Oxycodone-Acetaminophen], and Tylenol-Codeine Elixir MEDICATIONS PARoxetine (PAXIL) 40 mg tablet Take 1 tablet by mouth once daily. pantoprazole DR (PROTONIX) 40 mg tablet Take 1 tablet by mouth daily before breakfast. Take on empty stomach, 1/2 hr before meal. PARoxetine (PAXIL) 10 mg tablet Take 1 tablet by mouth once daily. Take along with Paxil 40 mg tablet LORazepam (ATIVAN) 0.5 mg Take 2 tablets by mouth two times a day for 90 days. metFORMIN (GLUCOPHAGE) 500 mg tablet Take 1 tablet by mouth two times a day with meals. empagliflozin (JARDIANCE) 25 mg tablet Take 1 tablet once daily in the morning tirzepatide (MOUNJARO) 15 mg/0.5 mL pen injector Inject 15 mg subcutaneously one time a week. cyanocobalamin (VITAMIN B-12) 1,000 mcg tab Take 1 tablet by mouth once daily. cholecalciferol (VITAMIN D-3) 5,000 unit tab Take 1 tablet by mouth once daily. esomeprazole (NEXIUM) 20 mg capsule Take 20 mg by mouth daily at 6 am. ondansetron orally disintegrating (ZOFRAN ODT) 4 mg disintegrating tablet Take 1 tablet by mouth every 6 hours as needed for nausea/vomiting. lisinopril (ZESTRIL) 20 mg tablet Take 1 tablet by mouth two times a day. atorvastatin (LIPITOR) 80 mg tablet Take 1 tablet by mouth daily at bedtime for cholesterol. atenolol (TENORMIN) 100 mg tablet Take 1 tablet by mouth once daily. gabapentin (NEURONTIN) 300 mg capsule Take 1 capsule by mouth two times a day for 180 days. magnesium oxide (MAG-OX) 400 mg (241.3 mg magnesium) tablet Take 1 tablet by mouth two times a day. nitroglycerin sublingual (NITROQUICK) 0.4 mg SL tablet Dissolve 1 tablet under the tongue as needed. FOR CHEST PAIN. IF NO RELIEF CALL 911 blood sugar diagnostic (BLOOD GLUCOSE TEST) test strip Test blood sugar(s) one times daily. Dx: Type 2 DM - Uncontrolled E11.65 Insulin: No glimepiride (AMARYL) 4 mg tablet Take 1 tablet by mouth twice daily with meals. ezetimibe (ZETIA) 10 mg tablet Take 1 tablet by mouth once daily. cyclobenzaprine (FLEXERIL) 10 mg tablet Take 1 tablet by mouth three times daily as needed for muscle spasm. meclizine (ANTIVERT) 25 mg tab Take 1 tablet by mouth three times daily as needed. hydrOXYzine HCl (ATARAX) 25 mg tablet Take 1 tablet by mouth every 6 hours as needed for anxiety. busPIRone (BUSPAR) 15 mg tablet Take 1 tablet by mouth three times daily. Blood-Glucose Meter Test blood sugar(s) 1 times daily. Dx: Type 2 DM - Uncontrolled E11.65 Insulin: No Lancets lancets Test blood sugar(s) 1 times daily. Dx: Type 2 DM - Uncontrolled E11.65 Insulin: No diclofenac (VOLTAREN) 1 % topical gel Apply 2 g to affected area four times daily. Lancets lancets Test blood sugar(s) 1 times daily. Dx: E11.65. Insulin: No aspirin 81 mg chewable tablet Take 81 mg by mouth once daily. Blood-Glucos (more content not included)... [facility] 11-07-2023 History of Present illness Narrative This note was created using [employer]. Subjective Camila Harmon is a 63 year old female. HPI 63-year-old female presents for vaginal itching, vaginal discharge, dysuria. Patient states she has had vaginal itching for the past 3 weeks. She thinks she may have a yeast infection. She states she has been using Monistat [id number]. Last used Monistat 2 days ago. She states that her vagina is very itchy and she has white chunky discharge. Patient does have history of diabetes and states her sugars been slightly elevated today. She denies any concern for STD. Patient reports she has had some burning with urination. She has had UTIs in the past. She has had urinary urgency and frequency as well. No abdominal pain or back pain. No fevers. No vomiting. She denies any other complaint. Checked her sugar prior to arrival and it was 235. PAST MEDICAL HISTORY No date: Coronary artery disease No date: Depressive disorder, not elsewhere classified No date: Enlarged liver 07/06/2004: Excessive or frequent menstruation Comment: s/p TVH No date: Migraine with aura, without mention of intractable migraine without mention of status migrainosus No date: Other anxiety states No date: Pure hypercholesterolemia 11/06/2008: S/P primary angioplasty with coronary stent No date: Type II or unspecified type diabetes mellitus without mention of complication, not stated as uncontrolled PAST SURGICAL HISTORY 03/05/2017: CARPAL TUNNEL; Bilateral 07/19/2013: COLONOSCOPY FLX DX W/COLLJ SPEC WHEN PFRMD Comment: Colonoscopy No date: EXTRACTION, ERUPTED TOOTH OR EXPOSED ROOT (ELEVATION AND/OR FORCEPS REMOVAL) Comment: wisdom teeth 02/11/2022: HEART CATHETERIZATION; N/A No date: HYSTERECTOMY HX 02/22/2002: PAST SURGICAL HISTORY OF Comment: BREAST REDUCTION 2008, 2011: PAST SURGICAL HISTORY OF Comment: stent, LAD X2. 07/2004: VAGINAL HYSTERECTOMY UTERUS 250 GM/< Comment: Hysterectomy, vaginal ALLERGIES Penicillins, Percocet [Oxycodone-Acetaminophen], and Tylenol-Codeine Elixir MEDICATIONS PARoxetine (PAXIL) 40 mg tablet Take 1 tablet by mouth once daily. pantoprazole DR (PROTONIX) 40 mg tablet Take 1 tablet by mouth daily before breakfast. Take on empty stomach, 1/2 hr before meal. PARoxetine (PAXIL) 10 mg tablet Take 1 tablet by mouth once daily. Take along with Paxil 40 mg tablet LORazepam (ATIVAN) 0.5 mg Take 2 tablets by mouth two times a day for 90 days. metFORMIN (GLUCOPHAGE) 500 mg tablet Take 1 tablet by mouth two times a day with meals. empagliflozin (JARDIANCE) 25 mg tablet Take 1 tablet once daily in the morning tirzepatide (MOUNJARO) 15 mg/0.5 mL pen injector Inject 15 mg subcutaneously one time a week. cyanocobalamin (VITAMIN B-12) 1,000 mcg tab Take 1 tablet by mouth once daily. cholecalciferol (VITAMIN D-3) 5,000 unit tab Take 1 tablet by mouth once daily. esomeprazole (NEXIUM) 20 mg capsule Take 20 mg by mouth daily at 6 am. ondansetron orally disintegrating (ZOFRAN ODT) 4 mg disintegrating tablet Take 1 tablet by mouth every 6 hours as needed for nausea/vomiting. lisinopril (ZESTRIL) 20 mg tablet Take 1 tablet by mouth two times a day. atorvastatin (LIPITOR) 80 mg tablet Take 1 tablet by mouth daily at bedtime for cholesterol. atenolol (TENORMIN) 100 mg tablet Take 1 tablet by mouth once daily. gabapentin (NEURONTIN) 300 mg capsule Take 1 capsule by mouth two times a day for 180 days. magnesium oxide (MAG-OX) 400 mg (241.3 mg magnesium) tablet Take 1 tablet by mouth two times a day. nitroglycerin sublingual (NITROQUICK) 0.4 mg SL tablet Dissolve 1 tablet under the tongue as needed. FOR CHEST PAIN. IF NO RELIEF CALL 911 blood sugar diagnostic (BLOOD GLUCOSE TEST) test strip Test blood sugar(s) one times daily. Dx: Type 2 DM - Uncontrolled E11. Insulin: No glimepiride (AMARYL) 4 mg tablet Take 1 tablet by mouth twice daily with meals. ezetimibe (ZETIA) 10 mg tablet Take 1 tablet by mouth once daily. cyclobenzaprine (FLEXERIL) 10 mg tablet Take 1 tablet by mouth three times daily as needed for muscle spasm. meclizine (ANTIVERT) 25 mg tab Take 1 tablet by mouth three times daily as needed. hydrOXYzine HCl (ATARAX) 25 mg tablet Take 1 tablet by mouth every 6 hours as needed for anxiety. busPIRone (BUSPAR) 15 mg tablet Take 1 tablet by mouth three times daily. Blood-Glucose Meter Test blood sugar(s) 1 times daily. Dx: Type 2 DM - Uncontrolled E11. Insulin: No Lancets lancets Test blood sugar(s) 1 times daily. Dx: Type 2 DM - Uncontrolled . Insulin: No diclofenac (VOLTAREN) 1 % topical gel Apply 2 g to affected area four times daily. Lancets lancets Test blood sugar(s) 1 times daily. Dx: E11.65. Insulin: No aspirin 81 mg chewable tablet Take 81 mg by mouth once daily. Blood-Glucose Meter monitoring kit Glucose Meter of Choice - Kit - Dx: Type 2 DM - Uncontrolled E11. multivitamins(DAILY MULTIVITAMIN TAB) Take one(1) tablet daily. Blood-Glucose Sensor ([employer] G7 SENSOR) john CHANGE SENSOR EVERY 10 days USE FOR CONTINUOUS GLUCOSE MONITORING. E11.9 (Patient not taking: Reported on 08/11/2023) promethazine (PHENERGAN) 25 mg tablet Take 1 tablet by mouth every 6 hours as needed for nausea/vomiting. (Patient not taking: Reported on 06/10/2023) albuterol HFA (PROVENTIL HFA, VENTOLIN HFA) 90 mcg/actuation inhaler Inhale 2 Puffs as instructed every 4 hours as needed for wheezing/shortness of breath. (Patient not taking: Reported on 06/10/2023) FAMILY HISTORY Problem Relation Age of Onset Hypertension Mother Diabetes Mother Heart Mother NM, age 72; first dx age late 60's Lipids Mother Stroke Mother Blindness Mother Hypertension Father Lipids Father Diabetes Father Social History Tobacco Use Smoking status: Former Current packs/day: 0.00 Types: Cigarettes Start date: 06/02/2017 Quit date: 06/02/2020 Years since quittin.4 Smokeless tobacco: Never Tobacco comments: social smoking for 3 years. Occasional smoking when upset Vaping Use Vaping status: Never Used Substance Use Topics Alcohol use: Yes Comment: Socially Drug use: No Review of Systems Constitutional: Negative for chills and fever. HENT: Negative for congestion, ear pain and sore throat. Respiratory: Negative for cough and shortness of breath. Cardiovascular: Negative for chest pain. Gastrointestinal: Negative for abdominal pain, diarrhea and vomiting. Genitourinary: Positive for dysuria, frequency, urgency and vaginal discharge. Objective BP 112/72 Pulse 80 Temp 36.6 C (97.9 F) (Tympanic) Resp 18 Wt 90.3 kg (199 lb 1.2 oz) SpO2 96% BMI 37.62 kg/m Physical Exam Vitals and nursing note reviewed. Constitutional: General: She is not in acute distress. Appearance: Normal appearance. She is not toxic-appearing. HENT: Nose: Nose normal. Mouth/Throat: Mouth: Mucous membranes are moist. Eyes: Conjunctiva/sclera: Conjunctivae normal. Cardiovascular: Rate and Rhythm: Normal rate and regular rhythm. Pulmonary: Effort: Pulmonary effort is normal. Breath sounds: Normal breath sounds. Abdominal: General: Abdomen is flat. Palpations: Abdomen is soft. Tenderness: There is abdominal tenderness (Mild suprapubic). There is no right CVA tenderness, left CVA tenderness, guarding or rebound. Genitourinary: Comments: Deferred, patient will self swab Skin: General: Skin is warm and dry. Neurological: Mental Status: She is alert. Assessment and Plan ASSESSMENT/PLAN: 1. Vaginal discharge - ICD9: 623.5, ICD10: N89.8 (primary diagnosis) - JAKOB/TRICHOMONAS NAAT - BACTERIAL VAGINOSIS NAAT -Suspect yeast infection. Rx for Diflucan. 2. Dysuria - ICD9: 788.1, ICD10: R30.0 Acute -UA positive for greater than 1000 glucose. Patient checked glucose prior to arrival 235. Declines fingerstick here. - Send urine for culture - Patient education for prevention given - UA DIP, URINE (POC) - JAKOB/TRICHOMONAS NAAT - BACTERIAL VAGINOSIS NAAT - URINE CULTURE -No antibiotic given for UTI. Treat if urine culture positive. Rx for Diflucan given. Diagnosis and treatment plan were discussed and questions were answered to the patient's satisfaction. Pt acknowledged understanding of concepts and follow up plan. Specific signs and symptoms that would indicate the need for higher level of care were discussed in detail warranting prompt ER evaluation. CATIE Burgos documented in this encounter [facility] 11-01-2023 Telephone encounter Note Patient reports she has a vaginal yeast infection. Protocol recommends see provider in 24 hours. Patient declined same day appt, stating she is at work. Patient agreeable to EC for evaluation after work. Reason for Disposition MODERATE-SEVERE itching (i.e., interferes with school, work, or sleep) Answer Assessment - Initial Assessment Questions 1. SYMPTOM: Vaginal discharge, white, itchy, pain. 2. LOCATION: Inside vaginal 3. ONSET: 4 days ago 4. PAIN: Mild 5. CAUSE: No idea. No recent AB's. 6. OTHER SYMPTOMS: No fever. No vaginal bleeding. Mild pain with urination. 7. : No. Hx: hysterectomy. Protocols used: Vulvar [id number] [facility] 11-01-2023 Miscellaneous Notes Patient reports she has a vaginal yeast infection. Protocol recommends see provider in 24 hours. Patient declined same day appt, stating she is at work. Patient agreeable to EC for evaluation after work. Reason for Disposition MODERATE-SEVERE itching (i.e., interferes with school, work, or sleep) Answer Assessment - Initial Assessment Questions 1. SYMPTOM: Vaginal discharge, white, itchy, pain. 2. LOCATION: Inside vaginal 3. ONSET: 4 days ago 4. PAIN: Mild 5. CAUSE: No idea. No recent AB's. 6. OTHER SYMPTOMS: No fever. No vaginal bleeding. Mild pain with urination. 7. : No. Hx: hysterectomy. Protocols used: Vulvar [id number] documented in this encounter [facility] 10-20-2023 Telephone encounter Note The following approved medication requests have been transmitted electronically. Requested Prescriptions Pending Prescriptions Disp Refills PARoxetine (PAXIL) 40 mg tablet 30 tablet 5 Sig: Take 1 tablet by mouth once daily. pantoprazole DR (PROTONIX) 40 mg tablet 30 tablet 5 Sig: Take 1 tablet by mouth daily before breakfast. Take on empty stomach, 1/2 hr before meal. Aileen Quintanilla APRN.CNP [facility] 10-20-2023 Miscellaneous Notes The following approved medication requests have been transmitted electronically. Requested Prescriptions Pending Prescriptions Disp Refills PARoxetine (PAXIL) 40 mg tablet 30 tablet 5 Sig: Take 1 tablet by mouth once daily. pantoprazole DR (PROTONIX) 40 mg tablet 30 tablet 5 Sig: Take 1 tablet by mouth daily before breakfast. Take on empty stomach, 1/2 hr before meal. Aileen Quintanilla APRN.CNP Pt DOES have a future appt scheduled 01/06/2024. Roma Rhodes LPN Prescription Refill Information The patient has been identified by name and date of : Yes Caregiver verified no other encounters exist for this prescription request: Yes Caregiver confirmed with patient/requestor that no other refills are due, in the near future, with this provider at this time: Yes The last office visit in the department: 09-29-23 Does the patient have a future office visit with this provider/department: No Requested Prescriptions Pending Prescriptions Disp Refills PARoxetine (PAXIL) 40 mg tablet 30 tablet 5 Sig: Take 1 tablet by mouth once daily. pantoprazole DR (PROTONIX) 40 mg tablet 30 tablet 5 Sig: Take 1 tablet by mouth daily before breakfast. Take on empty stomach, 1/2 hr before meal. Anisa Kohli October 20, 2023 3:41 PM documented in this encounter [facility] 10-20-2023 Telephone encounter Note Pt DOES have a future appt scheduled 01/06/2024. Rmoa Rhodes LPN [facility] 10-20-2023 Telephone encounter Note Prescription Refill Information The patient has been identified by name and date of : Yes Caregiver verified no other encounters exist for this prescription request: Yes Caregiver confirmed with patient/requestor that no other refills are due, in the near future, with this provider at this time: Yes The last office visit in the department: 09-29-23 Does the patient have a future office visit with this provider/department: No Requested Prescriptions Pending Prescriptions Disp Refills PARoxetine (PAXIL) 40 mg tablet 30 tablet 5 Sig: Take 1 tablet by mouth once daily. pantoprazole DR (PROTONIX) 40 mg tablet 30 tablet 5 Sig: Take 1 tablet by mouth daily before breakfast. Take on empty stomach, 1/2 hr before meal. Anisa Kohli October 20, 2023 3:41 PM [facility] 10-07-2023 Telephone encounter Note I agree with the advice given Emily Wang MD [facility] 10-07-2023 Miscellaneous Notes I agree with the advice given Emily Wang MD Patient calls for chest pain on-going for two days. Patient utilized nitro x 2 with some relief. Nurse triage completed. Protocol recommends call EMS now. Patient reports that she will go to [place] for evaluation rather than calling a squad because she doesn't want to go to [facility]. Care advice reviewed. Patient verbalizes understanding and will have assistance to [place]. Reason for Disposition [1] Chest pain lasts > 5 minutes AND [2] age > 44 Answer Assessment - Initial Assessment Questions 1. LOCATION: Chest pain under bilateral breasts and sides. Radiates to the back. 2. RADIATION: To the back. 3. ONSET: Patient reports that it has been on-going for two days. 4. PATTERN: Constant but changes in intensity. Patient has nitro that she took two of yesterday which helped some but hasn't completely relieved the pain. 5. DURATION: On-going for two days. 6. SEVERITY: - MODERATE (4-7): interferes with normal activities or awakens from sleep 7. CARDIAC RISK FACTORS: HX of angina, high blood pressure, high cholesterol, chest pain, diabetes, smoker, and strong family history of heart disease. No prior heart attack. 8. PULMONARY RISK FACTORS: No history of blood clots in lung, asthma, emphysema, control pills 9. CAUSE: Patient not certain if it is heart related or anxiety/stress related. 10. OTHER SYMPTOMS: No dizziness, nausea, vomiting, sweating, fever, difficulty breathing, cough Protocols used: Chest [id number] documented in this encounter [facility] 10-07-2023 Telephone encounter Note Patient calls for chest pain on-going for two days. Patient utilized nitro x 2 with some relief. Nurse triage completed. Protocol recommends call EMS now. Patient reports that she will go to [facility] for evaluation rather than calling a squad because she doesn't want to go to [facility]. Care advice reviewed. Patient verbalizes understanding and will have assistance to [facility]. Reason for Disposition [1] Chest pain lasts > 5 minutes AND [2] age > 44 Answer Assessment - Initial Assessment Questions 1. LOCATION: Chest pain under bilateral breasts and sides. Radiates to the back. 2. RADIATION: To the back. 3. ONSET: Patient reports that it has been on-going for two days. 4. PATTERN: Constant but changes in intensity. Patient has nitro that she took two of yesterday which helped some but hasn't completely relieved the pain. 5. DURATION: On-going for two days. 6. SEVERITY: - MODERATE (4-7): interferes with normal activities or awakens from sleep 7. CARDIAC RISK FACTORS: HX of angina, high blood pressure, high cholesterol, chest pain, diabetes, smoker, and strong family history of heart disease. No prior heart attack. 8. PULMONARY RISK FACTORS: No history of blood clots in lung, asthma, emphysema, control pills 9. CAUSE: Patient not certain if it is heart related or anxiety/stress related. 10. OTHER SYMPTOMS: No dizziness, nausea, vomiting, sweating, fever, difficulty breathing, cough Protocols used: Chest [id number] T [facility] 10-05-2023 Telephone encounter Note Tried calling patient no answer and was advised scheduled 12/09 at 10 am for new consult virtually. Patient was given office number to r/s if not compatible with schedule. Advised in person farther out due to only in office once a week at [facility]. Татьяна Barragan MA [facility] 10-05-2023 Miscellaneous Notes Tried calling patient no answer and was advised scheduled 10 at 10 am for new consult virtually. Patient was given office number to r/s if not compatible with schedule. Advised in person farther out due to only in office once a week at [place] location. Татьяна Barragan MA Pt was scheduled wrong for a new pt consult in person for 10/04 and Samra would like her rescheduled. Cancelled appt and pt is aware you will be contacting her for a new appt date/time. Roma Rhodes LPN documented in this encounter [facility] 10-04-2023 Telephone encounter Note Pt was scheduled wrong for a new pt consult in person for 10/04 and Samra would like her rescheduled. Cancelled appt and pt is aware you will be contacting her for a new appt date/time. Roma Rhodes LPN [facility] 09-29-2023 Instructions Aileen Quintanilla APRN.FIDEL - 09/29/2023 4:08 PM EDT Schedule appointment with FIDEL Cabrales Increase Paxil 50 mg daily. Take 1 tablet 40 mg and 1 tablet 10 mg together Recommend establishing care with counselor Get repeat fasting labs in 3 months. Continue to take all medication as prescribed. Continue to work on eating a low carb diet and get some form of exercise. Keep scheduled appointments with Endocrinology Follow up in 3 months Recommend protein powder, milk of choice, ice cubes, and PB powder (pb fit) , check the carbs and sugars in milk of choice. documented in this encounter [facility] 09-29-2023 History of Present illness Narrative This is a 62 year old female who presents today with: Patient presents with: Follow Up: 3 month follow up with labs HISTORY OF PRESENT ILLNESS: Camila Harmon is a 62 year old female. Patient presents with: Follow Up: 3 month follow up with labs 3 month follow up DM2: Follows with endocrinology, has not been keeping track of sugars. Has Dexcom 7 monitor. Eating chocolate peanut butter ice cream. Working all the time and not able to watch what she eats. Still taking metformin 500 mg twice daily, glimepiride 4 mg twice daily, and Mounjaro 12.5 mg weekly. A1c went from 10.7 to 10.4. Next follow-up with endocrinology is in November. Mood: Currently taking Paxil 40 mg daily, BuSpar 15 mg 3 times daily, and Ativan 0.5 mg, 2 tablets twice daily. No showed Samra [employer] psychiatry. Needs to reschedule. Reports her and her are not getting along lately. Increased sadness. Increased stress at work, working increased hours. Many employees on leave. Overall feels overwhelmed. Not currently following with counselor. Denies SI/HI. Hyperlipidemia: Triglycerides elevated. Taking Lipitor 80 mg daily. Refers that labs she recently completed reports was not fasting. present for exam. PAST MEDICAL HISTORY: PAST MEDICAL HISTORY Diagnosis Date Coronary artery disease Depressive disorder, not elsewhere classified Enlarged liver Excessive or frequent menstruation 07/06/2004 s/p TVH Migraine with aura, without mention of intractable migraine without mention of status migrainosus Other anxiety states Pure hypercholesterolemia S/P primary angioplasty with coronary stent 11/06/2008 Type II or unspecified type diabetes mellitus without mention of complication, not stated as uncontrolled PAST SURGICAL HISTORY Procedure Laterality Date CARPAL TUNNEL Bilateral 03/05/2017 COLONOSCOPY FLX DX W/COLLJ SPEC WHEN PFRMD 07/19/2013 Colonoscopy EXTRACTION, ERUPTED TOOTH OR EXPOSED ROOT (ELEVATION AND/OR FORCEPS REMOVAL) wisdom teeth HEART CATHETERIZATION N/A 02/11/2022 HYSTERECTOMY HX PAST SURGICAL HISTORY OF 02/22/2002 BREAST REDUCTION PAST SURGICAL HISTORY OF 2008, 2011 stent, LAD X2. VAGINAL HYSTERECTOMY UTERUS 250 GM/< 07/2004 Hysterectomy, vaginal ALLERGIES Penicillins, Percocet [Oxycodone-Acetaminophen], and Tylenol-Codeine Elixir MEDICATIONS Current Outpatient Medications Medication Sig LORazepam (ATIVAN) 0.5 mg Take 2 tablets by mouth two times a day for 90 days. metFORMIN (GLUCOPHAGE) 500 mg tablet Take 1 tablet by mouth two times a day with meals. empagliflozin (JARDIANCE) 25 mg tablet Take 1 tablet once daily in the morning tirzepatide (MOUNJARO) 15 mg/0.5 mL pen injector Inject 15 mg subcutaneously one time a week. cyanocobalamin (VITAMIN B-12) 1,000 mcg tab Take 1 tablet by mouth once daily. cholecalciferol (VITAMIN D-3) 5,000 unit tab Take 1 tablet by mouth once daily. esomeprazole (NEXIUM) 20 mg capsule Take 20 mg by mouth daily at 6 am. Blood-Glucose Sensor ([employer] G7 SENSOR) john CHANGE SENSOR EVERY 10 days USE FOR CONTINUOUS GLUCOSE MONITORING. E11.9 (Patient not taking: Reported on 08/11/2023) ondansetron orally disintegrating (ZOFRAN ODT) 4 mg disintegrating tablet Take 1 tablet by mouth every 6 hours as needed for nausea/vomiting. lisinopril (ZESTRIL) 20 mg tablet Take 1 tablet by mouth two times a day. atorvastatin (LIPITOR) 80 mg tablet Take 1 tablet by mouth daily at bedtime for cholesterol. atenolol (TENORMIN) 100 mg tablet Take 1 tablet by mouth once daily. gabapentin (NEURONTIN) 300 mg capsule Take 1 capsule by mouth two times a day for [address] (PROTONIX) 40 mg tablet Take 1 tablet by mouth daily before breakfast. Take on empty stomach, 1/2 hr before meal. magnesium oxide (MAG-OX) 400 mg (241.3 mg magnesium) tablet Take 1 tablet by mouth two times a day. nitroglycerin sublingual (NITROQUICK) 0.4 mg SL tablet Dissolve 1 tablet under the tongue as needed. FOR CHEST PAIN. IF NO RELIEF CALL 911 blood sugar diagnostic (BLOOD GLUCOSE TEST) test strip Test blood sugar(s) one times daily. Dx: Type 2 DM - Uncontrolled E11.65 Insulin: No PARoxetine (PAXIL) 40 mg tablet Take 1 tablet by mouth once daily. glimepiride (AMARYL) 4 mg tablet Take 1 tablet by mouth twice daily with meals. ezetimibe (ZETIA) 10 mg tablet Take 1 tablet by mouth once daily. cyclobenzaprine (FLEXERIL) 10 mg tablet Take 1 tablet by mouth three times daily as needed for muscle spasm. promethazine (PHENERGAN) 25 mg tablet Take 1 tablet by mouth every 6 hours as needed for nausea/vomiting. (Patient not taking: Reported on 06/10/2023) meclizine (ANTIVERT) 25 mg tab Take 1 tablet by mouth three times daily as needed. hydrOXYzine HCl (ATARAX) 25 mg tablet Take 1 tablet by mouth every 6 hours as needed for anxiety. busPIRone (BUSPAR) 15 mg tablet Take 1 tablet by mouth three times daily. Blood-Glucose Meter Test blood sugar(s) 1 times daily. Dx: Type 2 DM - Uncontrolled E11.65 Insulin: No Lancets lancets Test blood sugar(s) 1 times daily. Dx: Type 2 DM - Uncontrolled E11.65 Insulin: No albuterol HFA (PROVENTIL HFA, VENTOLIN HFA) 90 mcg/actuation inhaler Inhale 2 Puffs as instructed every 4 hours as needed for wheezing/shortness of breath. (Patient not taking: Reported on 06/10/2023) diclofenac (VOLTAREN) 1 % topical gel Apply 2 g to affected area four times daily. Lancets lancets Test blood sugar(s) 1 times daily. Dx: E11.65. Insulin: No aspirin 81 mg chewable tablet Take 81 mg by mouth once daily. Blood-Glucose Meter monitoring kit Glucose Meter of Choice - Kit - Dx: Type 2 DM - Uncontrolled E11.65 multivitamins(DAILY MULTIVITAMIN TAB) Take one(1) tablet daily. No current facility-administered medications for this visit. FAMILY HISTORY Problem Relation Age of Onset Hypertension Mother Diabetes Mother Heart Mother [place], age 72; first dx age late 60's Lipids Mother Stroke Mother Blindness Mother Hypertension Father Lipids Father Diabetes Father Social History Tobacco Use Smoking status: Former Years: 3 Types: Cigarettes Quit date: 06/02/2020 Years since quittin.3 Smokeless tobacco: Never Tobacco comments: social smoking for 3 years. Occasional smoking when upset Vaping Use Vaping Use: Never used Substance Use Topics Alcohol use: Yes Comment: Socially Drug use: No REVIEW OF SYSTEMS GENERAL: No weight loss, malaise or fevers/chills HEENT: Negative for frequent or significant headaches, No changes in hearing or vision. NECK: Negative for lumps, goiter, pain and significant neck swelling RESPIRATORY: Negative for cough, hemoptysis, wheezing, dyspnea or shortness of breath CARDIOVASCULAR: Negative for chest pain, leg swelling, orthopnea, or palpitations GI: No nausea, vomiting, or diarrhea/constipation. No hematochezia/melena. No heartburn or reflux symptoms. : No history of dysuria, frequency or incontinence MUSCULOSKELETAL: Negative for joint pain or swelling. SKIN: Negative for lesions, rash, and itching ENDOCRINE: Negative for cold or heat intolerance, polyuria, polydipsia and goiter NEURO: No history of headaches, syncope, paralysis, seizures or tremors MOOD: + Sadness, anxiety EXAM: BP 110/58 Pulse 71 Resp 16 Wt 90.7 kg (200 lb) SpO2 96% BMI 37.79 kg/m PHYSICAL EXAM: General Appearance: Well appearing, alert, in no acute distress, well-hydrated, well nourished. Skin: Skin color, texture, turgor normal, no suspicious rashes or lesions. Head: Normocephalic, no masses, lesions, tenderness or abnormalities. Eyes: Anicteric sclera. Extraocular movements are intact. Lungs: Lungs clear to auscultation. No wheezing, rhonchi, rales. Heart: RRR without murmur, gallop, or rubs. No ectopy. Extremities: No deformities, edema, skin discoloration, clubbing or cyanosis. Good capillary refill. Peripheral Pulses: Normal, Capillary refill <2secs, strong peripheral pulses, Pulses palpable. Neurologic: Gait normal. Sensation grossly intact. Mood: Very tearful, good eye contact, engaged. ASSESSMENT/PLAN: 1. Diabetes mellitus, non-insulin dependent (NIDDM or type II) ([facility]) - ICD9: 250.00, ICD10: E11.9 (primary diagnosis) - Improving control - Continue current medications - Counseled on healthy diet and regular exercise - Discussed need for and benefit of weight loss. BMI 37.79 kg/(m^2) - Stressed importance of lifestyle changes at home. - Keep scheduled appointment with endocrinology. - Get repeat labs in 3 months prior to next OV. - HEMOGLOBIN A1C 2. Anxiety with depression - ICD9: 300.4, ICD10: F41.8 - Increase Paxil 50 mg daily. - Instructed to reschedule appointment with psychiatry. - Recommend establishing care with counselor. - PAROXETINE 10 MG TABLET 3. Hyperlipidemia, unspecified hyperlipidemia type - ICD9: 272.4, ICD10: E78.5 - Uncontrolled - Continue current medications - Counseled on healthy diet and regular exercise - Discussed need for and benefit of weight loss. BMI 37.79 kg/(m^2) - Get repeat labs in 3 months. - LIPID PANEL BASIC - COMPREHENSIVE METABOLIC PANEL 4. High triglycerides - ICD9: 272.1, ICD10: E78.1 - Uncontrolled - Continue current medications - Counseled on healthy diet and regular exercise - Discussed need for and benefit of weight loss. BMI 37.79 kg/(m^2) Follow-up in 3 months or sooner as needed. Discussed treatment plan and patient voices understanding. Patient's questions answered appropriately. Medications and potential side effects were discussed and patient voices understanding. Aileen Quintanilla APRN.FIDEL This note was partially generated using [employer] voice recognition system. Note was reviewed for accuracy. There may be minor misspellings or grammar miscues with [employer] voice recognition. documented in this encounter [facility] 09-29-2023 Note HNO ID: [id number] Author: AILEEN QUINTANILLA APRN.FIDEL Service: ? Author Type: Nurse Practitioner Type: Progress Notes Filed: 09/29/2023 16:54 Note Text: This is a 62 year old female who presents today with: Patient presents with: Follow Up: 3 month follow up with labs HISTORY OF PRESENT ILLNESS: Camila Harmon is a 62 year old female. Patient presents with: Follow Up: 3 month follow up with labs 3 month follow up DM2: Follows with endocrinology, has not been keeping track of sugars. Has Dexcom 7 monitor. Eating chocolate peanut butter ice cream. Working all the time and not able to watch what she eats. Still taking metformin 500 mg twice daily, glimepiride 4 mg twice daily, and Mounjaro 12.5 mg weekly. A1c went from 10.7 to 10.4. Next follow-up with endocrinology is in November. Mood: Currently taking Paxil 40 mg daily, BuSpar 15 mg 3 times daily, and Ativan 0.5 mg, 2 tablets twice daily. No showed Samra PARRA psychiatry. Needs to reschedule. Reports her and her are not getting along lately. Increased sadness. Increased stress at work, working increased hours. Many employees on leave. Overall feels overwhelmed. Not currently following with counselor. Denies SI/HI. Hyperlipidemia: Triglycerides elevated. Taking Lipitor 80 mg daily. Refers that labs she recently completed reports was not fasting. present for exam. PAST MEDICAL HISTORY: PAST MEDICAL HISTORY Diagnosis Date Coronary artery disease Depressive disorder, not elsewhere classified Enlarged liver Excessive or frequent menstruation 07/06/2004 s/p TVH Migraine with aura, without mention of intractable migraine without mention of status migrainosus Other anxiety states Pure hypercholesterolemia S/P primary angioplasty with coronary stent 11/06/2008 Type II or unspecified type diabetes mellitus without mention of complication, not stated as uncontrolled PAST SURGICAL HISTORY Procedure Laterality Date CARPAL TUNNEL Bilateral 03/05/2017 COLONOSCOPY FLX DX W/COLLJ SPEC WHEN PFRMD 07/19/2013 Colonoscopy EXTRACTION, ERUPTED TOOTH OR EXPOSED ROOT (ELEVATION AND/OR FORCEPS REMOVAL) wisdom teeth HEART CATHETERIZATION N/A 02/11/2022 HYSTERECTOMY HX PAST SURGICAL HISTORY OF 02/22/2002 BREAST REDUCTION PAST SURGICAL HISTORY OF 2008, 2011 stent, LAD X2. VAGINAL HYSTERECTOMY UTERUS 250 GM/< 07/2004 Hysterectomy, vaginal ALLERGIES Penicillins, Percocet [Oxycodone-Acetaminophen], and Tylenol-Codeine Elixir MEDICATIONS Current Outpatient Medications Medication Sig LORazepam (ATIVAN) 0.5 mg Take 2 tablets by mouth two times a day for 90 days. metFORMIN (GLUCOPHAGE) 500 mg tablet Take 1 tablet by mouth two times a day with meals. empagliflozin (JARDIANCE) 25 mg tablet Take 1 tablet once daily in the morning tirzepatide (MOUNJARO) 15 mg/0.5 mL pen injector Inject 15 mg subcutaneously one time a week. cyanocobalamin (VITAMIN B-12) 1,000 mcg tab Take 1 tablet by mouth once daily. cholecalciferol (VITAMIN D-3) 5,000 unit tab Take 1 tablet by mouth once daily. esomeprazole (NEXIUM) 20 mg capsule Take 20 mg by mouth daily at 6 am. Blood-Glucose Sensor ([employer] G7 SENSOR) john CHANGE SENSOR EVERY 10 days USE FOR CONTINUOUS GLUCOSE MONITORING. E11.9 (Patient not taking: Reported on 08/11/2023) ondansetron orally disintegrating (ZOFRAN ODT) 4 mg disintegrating tablet Take 1 tablet by mouth every 6 hours as needed for nausea/vomiting. lisinopril (ZESTRIL) 20 mg tablet Take 1 tablet by mouth two times a day. atorvastatin (LIPITOR) 80 mg tablet Take 1 tablet by mouth daily at bedtime for cholesterol. atenolol (TENORMIN) 100 mg tablet Take 1 tablet by mouth once daily. gabapentin (NEURONTIN) 300 mg capsule Take 1 capsule by mouth two times a day for [address] (PROTONIX) 40 mg tablet Take 1 tablet by mouth daily before breakfast. Take on empty stomach, 1/2 hr before meal. magnesium oxide (MAG-OX) 400 mg (241.3 mg magnesium) tablet Take 1 tablet by mouth two times a day. nitroglycerin sublingual (NITROQUICK) 0.4 mg SL tablet Dissolve 1 tablet under the tongue as needed. FOR CHEST PAIN. IF NO RELIEF CALL 911 blood sugar diagnostic (BLOOD GLUCOSE TEST) test strip Test blood sugar(s) one times daily. Dx: Type 2 DM - Uncontrolled E11.65 Insulin: No PARoxetine (PAXIL) 40 mg tablet Take 1 tablet by mouth once daily. glimepiride (AMARYL) 4 mg tablet Take 1 tablet by mouth twice daily with meals. ezetimibe (ZETIA) 10 mg tablet Take 1 tablet by mouth once daily. cyclobenzaprine (FLEXERIL) 10 mg tablet Take 1 tablet by mouth three times daily as needed for muscle spasm. promethazine (PHENERGAN) 25 mg tablet Take 1 tablet by mouth every 6 hours as needed for nausea/vomiting. (Patient not taking: Reported on 06/10/2023) meclizine (ANTIVERT) 25 mg tab Take 1 tablet by mouth three times daily as needed. hydrOXYzine HCl (ATARAX) 25 mg tablet Take 1 tablet by mouth every 6 (more content not included)... [facility] 09-16-2023 Telephone encounter Note OK to refill as ordered Emily Wang MD [facility] 09-16-2023 Miscellaneous Notes OK to refill as ordered Emily Wang MD The patient has been identified by name and date of : Yes Caregiver verified no other encounters exist for this prescription request: Yes Caregiver confirmed with patient/requestor that no other refills are due, in the near future, with this provider at this time: Yes The last office visit in the department: 06/10/2023 Does the patient have a future office visit with this provider/department: Yes 09/29/2023 Requested Prescriptions Pending Prescriptions Disp Refills LORazepam (ATIVAN) 0.5 mg 120 tablet 2 Sig: Take 2 tablets by mouth two times a day for 90 days. metFORMIN (GLUCOPHAGE) 500 mg tablet 180 tablet 3 Sig: Take 1 tablet by mouth two times a day with meals. Marianne Kaur RN September 15, 2023 2:33 PM documented in this encounter [facility] 09-15-2023 Telephone encounter Note The patient has been identified by name and date of : Yes Caregiver verified no other encounters exist for this prescription request: Yes Caregiver confirmed with patient/requestor that no other refills are due, in the near future, with this provider at this time: Yes The last office visit in the department: 06/10/2023 Does the patient have a future office visit with this provider/department: Yes 09/29/2023 Requested Prescriptions Pending Prescriptions Disp Refills LORazepam (ATIVAN) 0.5 mg 120 tablet 2 Sig: Take 2 tablets by mouth two times a day for 90 days. metFORMIN (GLUCOPHAGE) 500 mg tablet 180 tablet 3 Sig: Take 1 tablet by mouth two times a day with meals. Marianne Kaur RN September 15, 2023 2:33 PM [facility] 08-11-2023 History of Present illness Narrative OFFICE VISIT PROGRESS NOTE CC Camila Harmon is a 62 year old female who presents today for blood sugar review, DM med dose review, adjust. HPI PATIENT OF [facility] GUEVARA, ENDOCRINE Diagnosed with diabetes mellitus type II, ~ 2006 Last endocrine OV 05/12/2023 Some elements copied from my note 05/12/2023 which have been updated where appropriate, and all reflect current medical decision making from date of this visit. HPI 05/12/2023 Does have dietary changes, past month & 1/2 Breakfast eggs/blueberries, or raspberries no breads any longer Lunch: shrimp or other protein Dinner protein or taco salad with beans Drinks ice tea, sweetened with Exercise none other than work HPI 08/11/2023 PCP started JARDIANCE Replaced TRULICITY with mounjaro Patient sts that her sensor didn't work - 'laid on it and sensor didn't work' Feels more fatigued Patient still has sweets in moderation Had cake on her daughters 40th Bday (pt dtr was homicide 1 year ago ) CURRENT DM MEDS JARDIANCE 25 mg 1 tab daily MOUNJARO 12.5 mg weekly AMARYL 4 mg BID METFORMIN 500 mg 2 tabs daily SMBG Type of Monitor: Other Frequency of Monitorin times a day FREESTYLE LITE BG Values: Breakfast: 127 Lunch: 127-130 Dinner: 127-130 Bedtime 130-150 Values over past week: Highest ; Lowest Hypoglycemia: no Diet: as above Exercise: none DM REVIEW OF SYSTEMS Last Eye Exam : is due soon Last Podiatry Exam: Cardiorespiratory: negative, denies chest pain, pressure Claudication: no Dyslipidemia: Yes, controlled on medication High Blood Pressure: Yes, controlled on medication CURRENT LABS No current labs, IN OFFICE A1C obtained today Latest Ref Rng 05/12/2023 Hemoglobin A1C (POCT) 4.3 - 5.6 % 9.1 ! PAST MEDICAL HISTORY Diagnosis Date Coronary artery disease Depressive disorder, not elsewhere classified Enlarged liver Excessive or frequent menstruation 07/06/2004 s/p TVH Migraine with aura, without mention of intractable migraine without mention of status migrainosus Other anxiety states Pure hypercholesterolemia S/P primary angioplasty with coronary stent 11/06/2008 Type II or unspecified type diabetes mellitus without mention of complication, not stated as uncontrolled PAST SURGICAL HISTORY Procedure Laterality Date CARPAL TUNNEL Bilateral 03/05/2017 COLONOSCOPY FLX DX W/COLLJ SPEC WHEN PFRMD 07/19/2013 Colonoscopy EXTRACTION, ERUPTED TOOTH OR EXPOSED ROOT (ELEVATION AND/OR FORCEPS REMOVAL) wisdom teeth HEART CATHETERIZATION N/A 02/11/2022 HYSTERECTOMY HX PAST SURGICAL HISTORY OF 02/22/2002 BREAST REDUCTION PAST SURGICAL HISTORY OF 2008, 2011 stent, LAD X2. VAGINAL HYSTERECTOMY UTERUS 250 GM/< 07/2004 Hysterectomy, vaginal FAMILY HISTORY Problem Relation Age of Onset Hypertension Mother Diabetes Mother Heart Mother [place], age 72; first dx age late 60's Lipids Mother Stroke Mother Blindness Mother Hypertension Father Lipids Father Diabetes Father Social History Tobacco Use Smoking status: Former Years: 3 Types: Cigarettes Quit date: 06/02/2020 Years since quittin.1 Smokeless tobacco: Never Tobacco comments: social smoking for 3 years. Occasional smoking when upset Vaping Use Vaping Use: Never used Substance Use Topics Alcohol use: Yes Comment: Socially Drug use: No Current Outpatient Medications Medication Sig LORazepam (ATIVAN) 0.5 mg Take 2 tablets by mouth two times a day for 90 days. cyanocobalamin (VITAMIN B-12) 1,000 mcg tab Take 1 tablet by mouth once daily. cholecalciferol (VITAMIN D-3) 5,000 unit tab Take 1 tablet by mouth once daily. esomeprazole (NEXIUM) 20 mg capsule Take 20 mg by mouth daily at 6 am. Blood-Glucose Sensor ([employer] [place] G7 SENSOR) john CHANGE SENSOR EVERY 10 days USE FOR CONTINUOUS GLUCOSE MONITORING. E11.9 tirzepatide (MOUNJARO) 12.5 mg/0.5 mL pen injector Inject 12.5 mg subcutaneously one time a week. (Patient not taking: Reported on 06/10/2023) ondansetron orally disintegrating (ZOFRAN ODT) 4 mg disintegrating tablet Take 1 tablet by mouth every 6 hours as needed for nausea/vomiting. lisinopril (ZESTRIL) 20 mg tablet Take 1 tablet by mouth two times a day. atorvastatin (LIPITOR) 80 mg tablet Take 1 tablet by mouth daily at bedtime for cholesterol. atenolol (TENORMIN) 100 mg tablet Take 1 tablet by mouth once daily. empagliflozin (JARDIANCE) 25 mg tablet Take 1 tablet by mouth once daily. Take 1 tablet once daily in the morning gabapentin (NEURONTIN) 300 mg capsule Take 1 capsule by mouth two times a day for [address] (PROTONIX) 40 mg tablet Take 1 tablet by mouth daily before breakfast. Take on empty stomach, 1/2 hr before meal. magnesium oxide (MAG-OX) 400 mg (241.3 mg magnesium) tablet Take 1 tablet by mouth two times a day. nitroglycerin sublingual (NITROQUICK) 0.4 mg SL tablet Dissolve 1 tablet under the tongue as needed. FOR CHEST PAIN. IF NO RELIEF CALL 911 blood sugar diagnostic (BLOOD GLUCOSE TEST) test strip Test blood sugar(s) one times daily. Dx: Type 2 DM - Uncontrolled Insulin: No PARoxetine (PAXIL) 40 mg tablet Take 1 tablet by mouth once daily. glimepiride (AMARYL) 4 mg tablet Take 1 tablet by mouth twice daily with meals. ezetimibe (ZETIA) 10 mg tablet Take 1 tablet by mouth once daily. cyclobenzaprine (FLEXERIL) 10 mg tablet Take 1 tablet by mouth three times daily as needed for muscle spasm. promethazine (PHENERGAN) 25 mg tablet Take 1 tablet by mouth every 6 hours as needed for nausea/vomiting. (Patient not taking: Reported on 06/10/2023) meclizine (ANTIVERT) 25 mg tab Take 1 tablet by mouth three times daily as needed. metFORMIN (GLUCOPHAGE) 500 mg tablet Take 1 tablet by mouth twice daily with meals. hydrOXYzine HCl (ATARAX) 25 mg tablet Take 1 tablet by mouth every 6 hours as needed for anxiety. busPIRone (BUSPAR) 15 mg tablet Take 1 tablet by mouth three times daily. Blood-Glucose Meter Test blood sugar(s) 1 times daily. Dx: Type 2 DM - Uncontrolled Insulin: No Lancets lancets Test blood sugar(s) 1 times daily. Dx: Type 2 DM - Uncontrolled Insulin: No albuterol HFA (PROVENTIL HFA, VENTOLIN HFA) 90 mcg/actuation inhaler Inhale 2 Puffs as instructed every 4 hours as needed for wheezing/shortness of breath. (Patient not taking: Reported on 06/10/2023) diclofenac (VOLTAREN) 1 % topical gel Apply 2 g to affected area four times daily. Lancets lancets Test blood sugar(s) 1 times daily. Dx: E11.65. Insulin: No aspirin 81 mg chewable tablet Take 81 mg by mouth once daily. Blood-Glucose Meter monitoring kit Glucose Meter of Choice - Kit - Dx: Type 2 DM - Uncontrolled E11.65 multivitamins(DAILY MULTIVITAMIN TAB) Take one(1) tablet daily. No current facility-administered medications for this visit. ALLERGIES Allergen Reactions Penicillins Hives Percocet [Oxycodone* GI Upset Tylenol-Codeine Prerna* Other: See Comments halucinations REVIEW OF SYSTEMS - POSITIVES IN BOLD GENERAL:No weight loss, malaise or fevers HEENT:Negative for frequent or significant headaches, No changes in hearing or vision, no nose bleeds or other nasal problems NECK:Negative for lumps, goiter, pain and significant neck swelling RESPIRATORY: Negative for cough, hemoptysis, wheezing, COPD, dyspnea or shortness of breath CARDIOVASCULAR: Negative for chest pain, leg swelling, hypertension, CHF or palpitations PHYSICAL EXAMINATION: BP 118/70 Pulse 63 Temp 37 C (98.6 F) (Temporal Artery) Ht 154.9 cm (5' 1) Wt 88.7 kg (195 lb 9.6 oz) SpO2 95% BMI 36.96 kg/m GENERAL: alert and appropriate, in no distress and well-hydrated, well nourished SKIN: no rash noted HEAD: normocephalic, no abnormality or lesion noted EYES: PERRL NECK: full ROM, no cervical LNs noted ACANTHOSIS: none noted EXTREMITIES: normal NEUROLOGIC: no obvious deficit ASSESSMENT: ,(E11.65) Poorly controlled type 2 diabetes mellitus (HCC) (primary encounter diagnosis) Comment: No current labs for review, IN OFFICE A1C obtained today 8.6% Will cont on Jardiance 25, Metformin and amaryl as per current INCREASE MOUNJARO to 15 mg once weekly Do labs in October. F/U in 6 months Recommended diet: Low carbohydrate and Low saturated fat, low simple sugar, high fiber diet Exercise minimally 150 minutes per week, increase as tolerated. Adequate hydration - 1/2 body wgt in oz of water daily, unless fluid restriction applies. I instructed the patient to monitor blood sugars 4 times per day If blood sugars are persistently high or low, to call our office. Patient to continue to follow up with her PCP and with other consultants regarding her other medical problems. Plan: COMPREHENSIVE METABOLIC PANEL, LIPID PANEL, NONFASTING, ALBUMIN/CREATININE RATIO, URINE, HEMOGLOBIN A1C Verónica Luis CNP documented in this encounter [facility] 07-13-2023 Telephone encounter Note Pt had follow up appt with provider. Lou Luna LPN [facility] 07-13-2023 Miscellaneous Notes Pt had follow up appt with provider. Lou Luna LPN Last OV: 04/15/23- hospital discharge: High blood sugars. Pt calls to report that since her sugars were running over 500 she gets cold all of the time. Pt reports she never used to get cold but now she gets cold easily. Pt is asking if this has anything to do with sugars being so high. Lou Luna LPN documented in this encounter [facility] 06-17-2023 Miscellaneous Notes OK to refill as ordered Emily Wang MD Patient has been identified by name and date of : Yes, Patient phones for refill(s): Requested Prescriptions Pending Prescriptions Disp Refills LORazepam (ATIVAN) 0.5 mg 120 tablet 2 Sig: Take 2 tablets by mouth two times a day for 90 days. Date of last office visit in primary care: 06/10/2023 Date of next office visit in primary care: 09/16/2023 Please advise. Thank you. Jo-Ann Peter. documented in this encounter [facility] 06-10-2023 Instructions Aileen Quintanilla APRN.SHIPPING ORDER CLERK - 06/10/2023 2:49 PM EDT Get repeat labs in 3 months prior to office visit. Continue to take all medication as prescribed. Continue to eat low carb diet. You may have a stomach virus, stay hydrated, continue with supportive care. Monitor glucose. May use zofran as needed for nausea. Keep scheduled appointment with Endocrinology. Reschedule appointment Samra PARRA Follow up in 3 months or sooner as needed. documented in this encounter [facility] 06-10-2023 History of Present illness Narrative This is a 62 year old female who presents today with: Patient presents with: Follow Up: 3 month follow up HISTORY OF PRESENT ILLNESS: Camila Harmon is a 62 year old female. Patient presents with: Follow Up: 3 month follow up 3 month follow up DM2: glucose readings at home, 90-130's. Much improved. Last A1c in March was 10.7, repeat A1c in endocrinology office in May was 9.1. Had consult with Endocrinoly, they gave her Dexcom 7 monitor, refers that the sensor fell off. Is waiting for manufacture replacement.. Refers that she will get sensors for free. Endocrinology tried to prescribe Mounjaro, could not afford medication. Still taking metformin 500 mg twice daily, glimepiride 4 mg twice daily, and Trulicity 4.5 mg weekly. Has been working hard on lifestyle changes at home. Increased protein and veggies, trying to be mindful with carbs. tingling in the feet has resolved. Mood: Currently taking Paxil 40 mg daily, BuSpar 15 mg 3 times daily, and Ativan 0.5 mg, 2 tablets twice daily. No SI/HI. No showed Samra PARRA psychiatry. Needs to reschedule. Diarrhea, N/V started on Wednesday. Having 3-4 episodes of diarrhea per day. Stayng hydrated. No fever or chills. Vomited on Wednesday night and Wednesday morning. Sore right ribs after using the meat slice all day at work yesterday, No injury to the area. No difficulty with breathing. PAST MEDICAL HISTORY: PAST MEDICAL HISTORY Diagnosis Date Coronary artery disease Depressive disorder, not elsewhere classified Enlarged liver Excessive or frequent menstruation 07/06/2004 s/p TVH Migraine with aura, without mention of intractable migraine without mention of status migrainosus Other anxiety states Pure hypercholesterolemia S/P primary angioplasty with coronary stent 11/06/2008 Type II or unspecified type diabetes mellitus without mention of complication, not stated as uncontrolled PAST SURGICAL HISTORY Procedure Laterality Date CARPAL TUNNEL Bilateral 03/05/2017 COLONOSCOPY FLX DX W/COLLJ SPEC WHEN PFRMD 07/19/2013 Colonoscopy EXTRACTION, ERUPTED TOOTH OR EXPOSED ROOT (ELEVATION AND/OR FORCEPS REMOVAL) wisdom teeth HEART CATHETERIZATION N/A 02/11/2022 HYSTERECTOMY HX PAST SURGICAL HISTORY OF 02/22/2002 BREAST REDUCTION PAST SURGICAL HISTORY OF 2008, 2011 stent, LAD X2. VAGINAL HYSTERECTOMY UTERUS 250 GM/< 07/2004 Hysterectomy, vaginal ALLERGIES Penicillins, Percocet [Oxycodone-Acetaminophen], and Tylenol-Codeine Elixir MEDICATIONS Current Outpatient Medications Medication Sig esomeprazole (NEXIUM) 20 mg capsule Take 20 mg by mouth daily at 6 am. Blood-Glucose Sensor ([employer] G7 SENSOR) john CHANGE SENSOR EVERY 10 days USE FOR CONTINUOUS GLUCOSE MONITORING. E11.9 tirzepatide (MOUNJARO) 12.5 mg/0.5 mL pen injector Inject 12.5 mg subcutaneously one time a week. cyanocobalamin (VITAMIN B-12) 1,000 mcg tab Take 1 tablet by mouth once daily. cholecalciferol (VITAMIN D-3) 5,000 unit tab Take 1 tablet by mouth once daily. ondansetron orally disintegrating (ZOFRAN ODT) 4 mg disintegrating tablet Take 1 tablet by mouth every 6 hours as needed for nausea/vomiting. lisinopril (ZESTRIL) 20 mg tablet Take 1 tablet by mouth two times a day. atorvastatin (LIPITOR) 80 mg tablet Take 1 tablet by mouth daily at bedtime for cholesterol. atenolol (TENORMIN) 100 mg tablet Take 1 tablet by mouth once daily. empagliflozin (JARDIANCE) 25 mg tablet Take 1 tablet by mouth once daily. Take 1 tablet once daily in the morning LORazepam (ATIVAN) 0.5 mg Take 2 tablets by mouth two times a day for 90 days. gabapentin (NEURONTIN) 300 mg capsule Take 1 capsule by mouth two times a day for [address] (PROTONIX) 40 mg tablet Take 1 tablet by mouth daily before breakfast. Take on empty stomach, 1/2 hr before meal. magnesium oxide (MAG-OX) 400 mg (241.3 mg magnesium) tablet Take 1 tablet by mouth two times a day. nitroglycerin sublingual (NITROQUICK) 0.4 mg SL tablet Dissolve 1 tablet under the tongue as needed. FOR CHEST PAIN. IF NO RELIEF CALL 911 blood sugar diagnostic (BLOOD GLUCOSE TEST) test strip Test blood sugar(s) one times daily. Dx: Type 2 DM - Uncontrolled Insulin: No PARoxetine (PAXIL) 40 mg tablet Take 1 tablet by mouth once daily. glimepiride (AMARYL) 4 mg tablet Take 1 tablet by mouth twice daily with meals. ezetimibe (ZETIA) 10 mg tablet Take 1 tablet by mouth once daily. cyclobenzaprine (FLEXERIL) 10 mg tablet Take 1 tablet by mouth three times daily as needed for muscle spasm. promethazine (PHENERGAN) 25 mg tablet Take 1 tablet by mouth every 6 hours as needed for nausea/vomiting. meclizine (ANTIVERT) 25 mg tab Take 1 tablet by mouth three times daily as needed. metFORMIN (GLUCOPHAGE) 500 mg tablet Take 1 tablet by mouth twice daily with meals. hydrOXYzine HCl (ATARAX) 25 mg tablet Take 1 tablet by mouth every 6 hours as needed for anxiety. busPIRone (BUSPAR) 15 mg tablet Take 1 tablet by mouth three times daily. Blood-Glucose Meter Test blood sugar(s) 1 times daily. Dx: Type 2 DM - Uncontrolled Insulin: No Lancets lancets Test blood sugar(s) 1 times daily. Dx: Type 2 DM - Uncontrolled Insulin: No albuterol HFA (PROVENTIL HFA, VENTOLIN HFA) 90 mcg/actuation inhaler Inhale 2 Puffs as instructed every 4 hours as needed for wheezing/shortness of breath. diclofenac (VOLTAREN) 1 % topical gel Apply 2 g to affected area four times daily. Lancets lancets Test blood sugar(s) 1 times daily. Dx: E11. Insulin: No aspirin 81 mg chewable tablet Take 81 mg by mouth once daily. Blood-Glucose Meter monitoring kit Glucose Meter of Choice - Kit - Dx: Type 2 DM - Uncontrolled multivitamins(DAILY MULTIVITAMIN TAB) Take one(1) tablet daily. No current facility-administered medications for this visit. FAMILY HISTORY Problem Relation Age of Onset Hypertension Mother Diabetes Mother Heart Mother [place], age 72; first dx age late 60's Lipids Mother Stroke Mother Blindness Mother Hypertension Father Lipids Father Diabetes Father Social History Tobacco Use Smoking status: Former Years: 3 Types: Cigarettes Quit date: 06/02/2020 Years since quittin.0 Smokeless tobacco: Never Tobacco comments: social smoking for 3 years. Occasional smoking when upset Vaping Use Vaping Use: Never used Substance Use Topics Alcohol use: Yes Comment: Socially Drug use: No REVIEW OF SYSTEMS GENERAL: No weight loss, malaise or fevers/chills HEENT: Negative for frequent or significant headaches, No changes in hearing or vision. NECK: Negative for lumps, goiter, pain and significant neck swelling RESPIRATORY: Negative for cough, hemoptysis, wheezing, dyspnea or shortness of breath CARDIOVASCULAR: Negative for chest pain, leg swelling, orthopnea, or palpitations GI: + Diarrhea, Nausea, Vomiting : No history of dysuria, frequency or incontinence MUSCULOSKELETAL: + Right Rib Pain SKIN: Negative for lesions, rash, and itching ENDOCRINE: Negative for cold or heat intolerance, polyuria, polydipsia and goiter NEURO: No history of headaches, syncope, paralysis, seizures or tremors MOOD: Negative for depression, anxiety, or suicidal ideation. EXAM: BP 140/76 Pulse 62 Resp 20 Wt 91.5 kg (201 lb 12.8 oz) SpO2 95% BMI 38.13 kg/m PHYSICAL EXAM: General Appearance: Well appearing, alert, in no acute distress, well-hydrated, well nourished. Skin: Skin color, texture, turgor normal, no suspicious rashes or lesions. Head: Normocephalic, no masses, lesions, tenderness or abnormalities. Eyes: Anicteric sclera. Extraocular movements are intact. Lungs: Lungs clear to auscultation. No wheezing, rhonchi, rales. Heart: RRR without murmur, gallop, or rubs. No ectopy. Abdomen: Abdomen soft. Bowel sounds hyperactive, tenderness noted in upper abdomen. No masses, organomegaly. Musculoskeletal: Tenderness noted under right breast along the rib cage. No swelling or color change noted. Extremities: No deformities, edema, skin discoloration, clubbing or cyanosis. Good capillary refill. Peripheral Pulses: Normal, Capillary refill <2secs, strong peripheral pulses, Pulses palpable. Neurologic: Gait normal. Reflexes normal and symmetric. Sensation grossly intact. Latest Ref Rng 05/12/2023 Hemoglobin A1C (POCT) 4.3 - 5.6 % 9.1 ! Legend: ! Abnormal ASSESSMENT/PLAN: 1. Viral gastroenteritis - ICD9: 008.8, ICD10: A08.4 (primary diagnosis) - Continue supportive care at home. - Stay well-hydrated. - May use Zofran as needed for nausea. - Monitor glucose closely. 2. Nausea - ICD9: 787.02, ICD10: R11.0 - ONDANSETRON HCL 4 MG TABLET 3. Muscle strain - ICD9: 848.9, ICD10: T14.8XXA - Chest wall muscle strain. - Continue supportive care at home, may apply heat to the area. - Instructed to perform deep breaths several times per hour. May use bracing with position changes or coughing. 4. Poorly controlled diabetes mellitus (HCC) - ICD9: 250.00, ICD10: E11.65 - Improving control - Continue current medications - Counseled on healthy diet and regular exercise - Discussed need for and benefit of weight loss. BMI 38.13 kg/(m^2) - Get repeat labs in 3 months with office visit. - COMP METABOLIC PANEL - HGB A1C 5. Hypertension, essential - ICD9: 401.9, ICD10: I10 - Controlled - Continue current medications - Recommend home blood pressure monitoring, to bring results to next visit - Encouraged sodium restriction, DASH or Mediterranean diet - Recommend regular aerobic exercise - Discussed need for and benefit of weight loss. BMI 38.13 kg/(m^2) 6. Pure hypercholesterolemia - ICD9: 272.0, ICD10: E78.00 - Stable 7. Anxiety with depression - ICD9: 300.4, ICD10: F41.8 - Reschedule appointment with psychiatry. Follow-up in 3 months or sooner as needed. Discussed treatment plan and patient voices understanding. Patient's questions answered appropriately. Medications and potential side effects were discussed and patient voices understanding. Aileen Quintanilla APRN.SHIPPING ORDER CLERK This note was partially generated using [employer] recognition system. Note was reviewed for accuracy. There may be minor misspellings or grammar miscues with [employer] voice recognition. documented in this encounter [facility] 06-01-2023 Miscellaneous Notes Patient calls and notified of below. Patient voiced understanding. Yuridia Mathis RN TC to pt. LM to call office, ask for triage nurse to get results. Nargis Reynaga LPN Can you please call the patient and let her know that her specialist in endocrinology already completed labs. She does not need to do any additional labs at this time. Aileen Quintanilla APRN.FIDEL Pt reports she has an appt 06/10/23 for a 3 month f/u. Pt is asking if any labs need done before appt. The lab orders in pt's chart are for Verónica Luis CNP and are due 10/07/23. Please review .Call pt with provider message. Lou Luna LPN documented in this encounter [facility] 05-24-2023 Telephone encounter Note Last OV: 04/15/23- hospital discharge: High blood sugars. Pt calls to report that since her sugars were running over 500 she gets cold all of the time. Pt reports she never used to get cold but now she gets cold easily. Pt is asking if this has anything to do with sugars being so high. Lou Luna LPN [facility] 05-18-2023 History of Present illness Narrative Patient did not come for her initial evaluation with the provider. documented in this encounter [facility] 05-17-2023 Miscellaneous Notes Called and left VM with instructions on how to remove and dispose of sensor. This can be forwarded to DM educator please - pt may need addt training for sensor use. Patient called, verified name and date of , regarding dexcom monitor. Patient stated she believes she laid on her monitor and the monitor stopped working. Monitor will not read, keeps reading have new sensor issued, patient called [employer]. [employer] told patient to remove sensor, send to them and they will replace. Patient states a new sensor is to expensive. Patient is back to poking finger. Patient wants to know how she removes monitor and wants something cheaper. Patient is at work, patient ok with staff leaving a voicemail, phone number verified. Sindy Golden LPN May 17, 2023 9:54 AM documented in this encounter [facility] 05-13-2023 Miscellaneous Notes Called and left VM for patient. Dexcom doesn't require scanning, it automatically updates the straightening machine operator every 5 minutes. I do not know of any asst with CGM sensors through [employer]. Will her insurance pay for FREESTYLE TERRY? We can switch her Pt checking on reply. Pt reports DDM tells her the sensors will cost $434. DDM tells her [place] and all of those are not helping b/c they have no funding. Asking if Melisa Luis knows of any assistance she can get with the dexcom sensor cost? Pt also wants this message sent to Chirag Ronnigenesissteve- letting you know, she needs your help with the straightening machine operator- how to get it to scan. Please phone patient with reply. Patient called to speak to Toby's office, patient said she went to the pharmacy and it was over 400.00 she can't afford that , asking what else she can do? Please advise documented in this encounter [facility] 05-12-2023 Miscellaneous Notes Prior auth [facility] for Ailyn. Mosher: [id number] Aneta Deluna RN May 12, 2023 12:50 PM documented in this encounter [facility] 05-12-2023 History of Present illness Narrative DIABETES CARE AND EDUCATION VISIT Location: [place] Type of visit: In person individual PATIENT'S MAIN CONCERN TODAY: Dexcom G7 Support person present for education today: none Cognitive ability: Alert and oriented Motivation to learn: Interested Learning barriers identified by educator: none Method of instruction: written, verbal, and demonstration DIABETES FINDINGS: Monitoring: reviewed G7 with straightening machine operator since she was unable to download the jose on her phone, her iPhone account was not enabled to allow any apps to be downloaded from the [employer] - HANDOUTS: None LEARNING RESPONSE: Monitoring glucose: Demonstrated understanding/competency today or at previous visit POSSIBLE FUTURE TOPICS: 1. DIABETES CARE AND EDUCATION PLAN: Education completed and annual diabetes education follow-up visit recommended Time Spent (Minutes): 30 This visit note will be communicated to the healthcare provider via access to shared medical record. SIGNATURE: Chirag Chavez RN PATIENT NAME: Camila Harmon DATE: May 12, 2023 TIME: 11:29 AM documented in this encounter [facility] 05-12-2023 History of Present illness Narrative OFFICE VISIT PROGRESS NOTE CC Camila Harmon is a 62 year old female who presents today for blood sugar review, DM med dose review adjust. HPI PATIENT OF [facility] Diagnosed with diabetes mellitus type II, ~ 2005 Last endocrine OV 04/24/2021 with ENDO SHIPPING ORDER CLERK HPI 05/12/2023 Does have dietary changes, past month & 1/2 Breakfast eggs/blueberries, or raspberries no breads any longer Lunch: shrimp or other protein Dinner protein or taco salad with beans Drinks ice tea, sweetened with Exercise none other than work CURRENT DM MEDS JARDIANCE 25 mg 1 tab daily TRULICITY 4.5 weekly AMARYL 4 mg BID METFORMIN 500 mg 2 tabs daily SMBG Type of Monitor: Other Frequency of Monitorin times a day BG Values: FINGERSTICK 100-250 Values over past week: Highest ; Lowest Hypoglycemia: no Diet: as above Exercise: none DM REVIEW OF SYSTEMS Last Eye Exam : yearly Last Podiatry Exam: Cardiorespiratory: negative, denies chest pain, pressure Claudication: no Dyslipidemia: Yes, controlled on medication High Blood Pressure: Yes, controlled on medication CURRENT LABS Component Latest Ref Rng & Units 03/13/2023 04/12/2023 Protein, Total 6.3 - 8.0 g/dL 6.8 Albumin 3.9 - 4.9 g/dL 4.2 Calcium 8.5 - 10.2 mg/dL 9.3 Bilirubin, Total 0.2 - 1.3 mg/dL 1.1 Alkaline Phosphatase 34 - 123 U/L 93 AST 13 - 35 U/L 20 ALT 7 - 38 U/L 30 Glucose 74 - 99 mg/dL 341 (H) BUN 7 - 21 mg/dL 24 (H) Creatinine 0.58 - 0.96 mg/dL 0.78 Sodium 136 - 144 mmol/L 133 (L) Potassium 3.7 - 5.1 mmol/L 4.1 Chloride 97 - 105 mmol/L 95 (L) CO2 22 - 30 mmol/L 24 Anion Gap 9 - 18 mmol/L 14 eGFR >=60 mL/min/1.73m 87 Hemoglobin A1C 4.3 - 5.6 % 10.7 (H) Estimated Average Glucose mg/dL 260 PAST MEDICAL HISTORY Diagnosis Date Coronary artery disease Depressive disorder, not elsewhere classified Enlarged liver Excessive or frequent menstruation 07/06/2004 s/p TVH Migraine with aura, without mention of intractable migraine without mention of status migrainosus Other anxiety states Pure hypercholesterolemia S/P primary angioplasty with coronary stent 11/06/2008 Type II or unspecified type diabetes mellitus without mention of complication, not stated as uncontrolled PAST SURGICAL HISTORY Procedure Laterality Date CARPAL TUNNEL Bilateral 03/05/2017 COLONOSCOPY FLX DX W/COLLJ SPEC WHEN PFRMD 07/19/2013 Colonoscopy EXTRACTION, ERUPTED TOOTH OR EXPOSED ROOT (ELEVATION AND/OR FORCEPS REMOVAL) wisdom teeth HEART CATHETERIZATION N/A 02/11/2022 HYSTERECTOMY HX PAST SURGICAL HISTORY OF 02/22/2002 BREAST REDUCTION PAST SURGICAL HISTORY OF 2008, 2011 stent, LAD X2. VAGINAL HYSTERECTOMY UTERUS 250 GM/< 07/2004 Hysterectomy, vaginal FAMILY HISTORY Problem Relation Age of Onset Hypertension Mother Diabetes Mother Heart Mother [place], age 72; first dx age late 60's Lipids Mother Stroke Mother Blindness Mother Hypertension Father Lipids Father Diabetes Father Social History Tobacco Use Smoking status: Former Years: 3 Types: Cigarettes Quit date: 06/02/2020 Years since quittin.8 Smokeless tobacco: Never Tobacco comments: social smoking for 3 years. Occasional smoking when upset Vaping Use Vaping Use: Never used Substance Use Topics Alcohol use: Yes Comment: Socially Drug use: No Current Outpatient Medications Medication Sig atorvastatin (LIPITOR) 80 mg tablet Take 1 tablet by mouth daily at bedtime for cholesterol. atenolol (TENORMIN) 100 mg tablet Take 1 tablet by mouth once daily. empagliflozin (JARDIANCE) 25 mg tablet Take 1 tablet by mouth once daily. Take 1 tablet once daily in the morning LORazepam (ATIVAN) 0.5 mg Take 2 tablets by mouth two times a day for 90 days. gabapentin (NEURONTIN) 300 mg capsule Take 1 capsule by mouth two times a day for [address] (PROTONIX) 40 mg tablet Take 1 tablet by mouth daily before breakfast. Take on empty stomach, 1/2 hr before meal. magnesium oxide (MAG-OX) 400 mg (241.3 mg magnesium) tablet Take 1 tablet by mouth two times a day. nitroglycerin sublingual (NITROQUICK) 0.4 mg SL tablet Dissolve 1 tablet under the tongue as needed. FOR CHEST PAIN. IF NO RELIEF CALL 911 blood sugar diagnostic (BLOOD GLUCOSE TEST) test strip Test blood sugar(s) one times daily. Dx: Type 2 DM - Uncontrolled . Insulin: No PARoxetine (PAXIL) 40 mg tablet Take 1 tablet by mouth once daily. dulaglutide (TRULICITY) 4.5 mg/0.5 mL pen injector Inject 4.5 mg subcutaneously one time a week. glimepiride (AMARYL) 4 mg tablet Take 1 tablet by mouth twice daily with meals. ezetimibe (ZETIA) 10 mg tablet Take 1 tablet by mouth once daily. cyclobenzaprine (FLEXERIL) 10 mg tablet Take 1 tablet by mouth three times daily as needed for muscle spasm. promethazine (PHENERGAN) 25 mg tablet Take 1 tablet by mouth every 6 hours as needed for nausea/vomiting. meclizine (ANTIVERT) 25 mg tab Take 1 tablet by mouth three times daily as needed. lisinopril (ZESTRIL) 20 mg tablet Take 1 tablet by mouth twice daily. metFORMIN (GLUCOPHAGE) 500 mg tablet Take 1 tablet by mouth twice daily with meals. hydrOXYzine HCl (ATARAX) 25 mg tablet Take 1 tablet by mouth every 6 hours as needed for anxiety. busPIRone (BUSPAR) 15 mg tablet Take 1 tablet by mouth three times daily. Blood-Glucose Meter Test blood sugar(s) 1 times daily. Dx: Type 2 DM - Uncontrolled . Insulin: No Lancets lancets Test blood sugar(s) 1 times daily. Dx: Type 2 DM - Uncontrolled E11.65 Insulin: No albuterol HFA (PROVENTIL HFA, VENTOLIN HFA) 90 mcg/actuation inhaler Inhale 2 Puffs as instructed every 4 hours as needed for wheezing/shortness of breath. diclofenac (VOLTAREN) 1 % topical gel Apply 2 g to affected area four times daily. Lancets lancets Test blood sugar(s) 1 times daily. Dx: E11.65. Insulin: No aspirin 81 mg chewable tablet Take 81 mg by mouth once daily. Blood-Glucose Meter monitoring kit Glucose Meter of Choice - Kit - Dx: Type 2 DM - Uncontrolled E11.65 multivitamins(DAILY MULTIVITAMIN TAB) Take one(1) tablet daily. No current facility-administered medications for this visit. ALLERGIES Allergen Reactions Penicillins Hives Percocet [Oxycodone* GI Upset Tylenol-Codeine Prerna* Other: See Comments halucinations REVIEW OF SYSTEMS - POSITIVES IN BOLD GENERAL:No weight loss, malaise or fevers HEENT:Negative for frequent or significant headaches, No changes in hearing or vision, no nose bleeds or other nasal problems NECK:Negative for lumps, goiter, pain and significant neck swelling RESPIRATORY: Negative for cough, hemoptysis, wheezing, COPD, dyspnea or shortness of breath CARDIOVASCULAR: Negative for chest pain, leg swelling, hypertension, CHF or palpitations PHYSICAL EXAMINATION: BP 142/82 Pulse 65 Temp 36.4 C (97.6 F) (Temporal Artery) Ht 154.9 cm (5' 1) Wt 91.1 kg (200 lb 12.8 oz) SpO2 98% BMI 37.94 kg/m GENERAL: alert and appropriate, in no distress and well-hydrated, well nourished SKIN: no rash noted HEAD: normocephalic, no abnormality or lesion noted EYES: PERRL NECK: full ROM, no cervical LNs noted ACANTHOSIS: none noted EXTREMITIES: normal NEUROLOGIC: no obvious deficit ASSESSMENT: (E11.65) Poorly controlled type 2 diabetes mellitus (HCC) (primary encounter diagnosis) Comment: patient dietary changes for past month and 1/2 She is on right track. Will hold off adding additional medications at this time (insulin) she is overall maxed on her current Dropped A1C from 10.7 to 9.1 with dietary changes CONSULT TO NUTRITION CONSULT TO DM ED - CGM teaching Recommended diet: Low carbohydrate and Low saturated fat, low simple sugar, high fiber diet Exercise minimally 150 minutes per week, increase as tolerated. Adequate hydration - 1/2 body wgt in oz of water daily, unless fluid restriction applies. I instructed the patient to monitor blood sugars 4 times per day If blood sugars are persistently high or low, to call our office. Patient to continue to follow up with her PCP and with other consultants regarding her other medical problems. Plan: COMP METABOLIC PANEL, LIPID PANEL, NONFASTING, ALBUMIN/CREAT RATIO RND UR, HGB A1C Verónica Luis CNP documented in this encounter [facility] 05-10-2023 Miscellaneous Notes Spoke with patient. Given message from provider's office. Patient verbalizes understanding. Areli Park RN Message left for pt to call back. Kaleigh Dudley Ma Can you please call the patient and let her know that I appreciate her calling in her glucose readings. I am very happy to see that her sugars are coming down. I would like her to keep up the great work, continue to be mindful with higher carbohydrate foods. Continue to work on eating lean protein, vegetables, and get some form exercise. Please let me know if she has any additional questions. Thank you. Aileen Quintanilla APRN.FIDEL Patient calls to give provider update. Patient reports that sugars have been ranging from 165 to 172 throughout the day. She reports in the morning fasting they are around 150. Asymptomatic. Patient wants provider to be updated on below: Patient has been seen by dentist with no significant findings. Patient has been seen by podiatry with no significant findings. Patient has upcoming appt to see endocrinology transport pilot. Olga Samayoa RN documented in this encounter [facility] 04-29-2023 Miscellaneous Notes Patient returned call. Blood sugar readings are AM fasting. Areli Park RN Left message to call office. 04/29/2023 9:22 AM Can you please call the patient back and thank her for calling in with her glucose readings. Can you please verify if these are her fasting readings first thing in the morning? Aileen Quintanilla APRN.FIDEL Patient calls and wanted provider to know that her blood sugars have been down. Patient states that they have ranged from 127-225. Yuridia Mathis RN documented in this encounter [facility] 04-27-2023 Miscellaneous Notes Reason for Call: Results of swab done in urgent care. Outcome: Patient calling with health information: patient requesting health information about lab results of swab done at [facility], reviewed information from [place], and verbalized understanding of information provided. Patient denies any new or worsening symptoms of which a provider is not aware:Yes . documented in this encounter [facility] 04-26-2023 History of Present illness Narrative Subjective HPI HPI Camila Harmon is a 62 year old female who presents today for CC of nausea, vomiting, diarrhea. This started 3 days ago. Has tried nothing for relief. Symptoms are worsened by nothing. Risk factors sick exposures at work. Denies uri s/s. .Patient presents with: Nausea & Vomiting: Fatigue, chills, diarrhea x 3 days PAST MEDICAL HISTORY Diagnosis Date Coronary artery disease Depressive disorder, not elsewhere classified Enlarged liver Excessive or frequent menstruation 07/06/2004 s/p TVH Migraine with aura, without mention of intractable migraine without mention of status migrainosus Other anxiety states Pure hypercholesterolemia S/P primary angioplasty with coronary stent 11/06/2008 Type II or unspecified type diabetes mellitus without mention of complication, not stated as uncontrolled PAST SURGICAL HISTORY Procedure Laterality Date CARPAL TUNNEL Bilateral 03/05/2017 COLONOSCOPY FLX DX W/COLLJ SPEC WHEN PFRMD 07/19/2013 Colonoscopy EXTRACTION, ERUPTED TOOTH OR EXPOSED ROOT (ELEVATION AND/OR FORCEPS REMOVAL) wisdom teeth HEART CATHETERIZATION N/A 02/11/2022 HYSTERECTOMY HX PAST SURGICAL HISTORY OF 02/22/2002 BREAST REDUCTION PAST SURGICAL HISTORY OF 2008, 2011 stent, LAD X2. VAGINAL HYSTERECTOMY UTERUS 250 GM/< 07/2004 Hysterectomy, vaginal ALLERGIES Penicillins, Percocet [Oxycodone-Acetaminophen], and Tylenol-Codeine Elixir MEDICATIONS lisinopril (ZESTRIL) 20 mg tablet Take 1 tablet by mouth two times a day. atorvastatin (LIPITOR) 80 mg tablet Take 1 tablet by mouth daily at bedtime for cholesterol. atenolol (TENORMIN) 100 mg tablet Take 1 tablet by mouth once daily. empagliflozin (JARDIANCE) 25 mg tablet Take 1 tablet by mouth once daily. Take 1 tablet once daily in the morning LORazepam (ATIVAN) 0.5 mg Take 2 tablets by mouth two times a day for 90 days. gabapentin (NEURONTIN) 300 mg capsule Take 1 capsule by mouth two times a day for [address] (PROTONIX) 40 mg tablet Take 1 tablet by mouth daily before breakfast. Take on empty stomach, 1/2 hr before meal. magnesium oxide (MAG-OX) 400 mg (241.3 mg magnesium) tablet Take 1 tablet by mouth two times a day. nitroglycerin sublingual (NITROQUICK) 0.4 mg SL tablet Dissolve 1 tablet under the tongue as needed. FOR CHEST PAIN. IF NO RELIEF CALL 911 blood sugar diagnostic (BLOOD GLUCOSE TEST) test strip Test blood sugar(s) one times daily. Dx: Type 2 DM - Uncontrolled E11.65 Insulin: No PARoxetine (PAXIL) 40 mg tablet Take 1 tablet by mouth once daily. dulaglutide (TRULICITY) 4.5 mg/0.5 mL pen injector Inject 4.5 mg subcutaneously one time a week. glimepiride (AMARYL) 4 mg tablet Take 1 tablet by mouth twice daily with meals. ezetimibe (ZETIA) 10 mg tablet Take 1 tablet by mouth once daily. cyclobenzaprine (FLEXERIL) 10 mg tablet Take 1 tablet by mouth three times daily as needed for muscle spasm. promethazine (PHENERGAN) 25 mg tablet Take 1 tablet by mouth every 6 hours as needed for nausea/vomiting. meclizine (ANTIVERT) 25 mg tab Take 1 tablet by mouth three times daily as needed. metFORMIN (GLUCOPHAGE) 500 mg tablet Take 1 tablet by mouth twice daily with meals. hydrOXYzine HCl (ATARAX) 25 mg tablet Take 1 tablet by mouth every 6 hours as needed for anxiety. busPIRone (BUSPAR) 15 mg tablet Take 1 tablet by mouth three times daily. Blood-Glucose Meter Test blood sugar(s) 1 times daily. Dx: Type 2 DM - Uncontrolled E11.65 Insulin: No Lancets lancets Test blood sugar(s) 1 times daily. Dx: Type 2 DM - Uncontrolled E11.65 Insulin: No albuterol HFA (PROVENTIL HFA, VENTOLIN HFA) 90 mcg/actuation inhaler Inhale 2 Puffs as instructed every 4 hours as needed for wheezing/shortness of breath. diclofenac (VOLTAREN) 1 % topical gel Apply 2 g to affected area four times daily. Lancets lancets Test blood sugar(s) 1 times daily. Dx: E11.65. Insulin: No aspirin 81 mg chewable tablet Take 81 mg by mouth once daily. Blood-Glucose Meter monitoring kit Glucose Meter of Choice - Kit - Dx: Type 2 DM - Uncontrolled E11.65 multivitamins(DAILY MULTIVITAMIN TAB) Take one(1) tablet daily. ondansetron orally disintegrating (ZOFRAN ODT) 4 mg disintegrating tablet Take 1 tablet by mouth every 6 hours as needed for nausea/vomiting. FAMILY HISTORY Problem Relation Age of Onset Hypertension Mother Diabetes Mother Heart Mother [place], age 72; first dx age late 60's Lipids Mother Stroke Mother Blindness Mother Hypertension Father Lipids Father Diabetes Father Social History Tobacco Use Smoking status: Former Years: 3 Types: Cigarettes Quit date: 06/02/2020 Years since quittin.8 Smokeless tobacco: Never Tobacco comments: social smoking for 3 years. Occasional smoking when upset Vaping Use Vaping Use: Never used Substance Use Topics Alcohol use: Yes Comment: Socially Drug use: No Review of Systems Gastrointestinal: Negative for abdominal pain and blood in stool. Objective Blood pressure 120/62, pulse 72, temperature 36.4 C (97.5 F), resp. rate 21, weight 91.4 kg (201 lb 6.4 oz), SpO2 98%. Physical Exam Constitutional: General: She is not in acute distress. Appearance: Normal appearance. She is not toxic-appearing. Cardiovascular: Rate and Rhythm: Normal rate and regular rhythm. Heart sounds: Normal heart sounds. Pulmonary: Effort: Pulmonary effort is normal. Breath sounds: Normal breath sounds. Abdominal: General: Bowel sounds are normal. Palpations: Abdomen is soft. Tenderness: There is no abdominal tenderness. Skin: General: Skin is warm and dry. ASSESSMENT/PLAN: 1. Viral syndrome - ICD9: 079.99, ICD10: B34.9 - Discussed viral etiology and rationale for treatment. - Symptomatic treatment with prn analgesia - Supportive care with fluids and rest - Follow up in 3-5 days if symptoms persist or sooner if worsening of symptoms - ONDANSETRON 4 MG DISINTEGRATING TABLET - COVID & INFLUENZA A/B & RSV NAAT, ROUTINE Antwon Mckeon APRN.SHIPPING ORDER CLERK documented in this encounter [facility] 04-23-2023 Miscellaneous Notes TC to patient with no answer. Left VM to return call to office. CINDY Singh OK to refill as ordered Emily Wang MD Patient has been identified by name and date of : Yes Patient phones for refill(s): Requested Prescriptions Pending Prescriptions Disp Refills lisinopril (ZESTRIL) 20 mg tablet 60 tablet 6 Sig: Take 1 tablet by mouth two times a day. Date of last office visit in primary care: 04/15/2023 Date of next office visit in primary care: 06/10/2023 Please advise. Thank you. Clare Amaral. documented in this encounter [facility] 04-21-2023 Miscellaneous Notes Forwarded to Carrie, this appears to be for Pooja. She said she will handle. Jessica Hill April 21, 2023 11:30 AM ----- Message from Jolanta Schwarz sent at 04/15/2023 2:08 PM EST ----- Regarding: Endocrinology/new pt/ has referral to schedule with a transport pilot in endo Patient: Camila Harmon Date of : 1960 Primary Care Provider: Emily Wang MD Patient has been identified by name and Date of (Y/N): y Patient: Camila Harmon Date of : 1960 Provider for this encounter: Emily Wang MD Reason for the call/escalation: has referral to schedule with a transport pilot in endo Was Patient Referred to [facility]/Seek Emergency Treatment (Y/N): no Did Patient Agree (Y/N): n/a Was An Attempt Made To Transfer The Patient To The Office (Y/N): no Were You Able To Reach Someone At The Office (Y/N): n/a If Yes - Patient Was Transferred To (Caregivers Name): n/a If No - Which [facility] Leadership Deodorizer Operator Did You Speak With Regarding This Patient: n/a Was an appointment scheduled (Y/N): no-unable to schedule with transport pilot Reason patient was requesting visit (RFV/signs and symptoms/diagnosis) : has referral to schedule with a transport pilot in endo Person calling if other than patient: n/a Return call to if other than patient: n/a Best contact number: [phone] Thank you, Jolanta Schwarz April 15, 2023 2:08 PM documented in this encounter [facility] 04-19-2023 Miscellaneous Notes OK to refill as ordered Emily Wang MD Patient has been identified by name and date of : Yes, Provider Emily Wang MD Date 04/19/2023 Time 4:36 pm Patient phones for refill(s): Requested Prescriptions Pending Prescriptions Disp Refills atorvastatin (LIPITOR) 80 mg tablet 30 tablet 6 Sig: Take 1 tablet by mouth daily at bedtime for cholesterol. atenolol (TENORMIN) 100 mg tablet 90 tablet 3 Sig: Take 1 tablet by mouth once daily. Date of last office visit in primary care: 03/11/2023 Date of next office visit in primary care: 06/10/2023 Please advise. Thank you. Luz Maria Davenport. documented in this encounter [facility] 04-19-2023 Miscellaneous Notes Pt notified of provider message. Pt voiced understanding. Lou Luna LPN TC to pt. LM to call office, ask for triage nurse to get results. Nargis Reynaga LPN Can you please call the patient back and let her know that I reviewed her glucose readings. Glucose is slowly improving. I would like her to continue to monitor glucose and message by Wednesday. If sugars are still in the 200s I would like her to consider trying bedtime insulin. Please let me know if she has any additional questions. Thank you. Aileen Quintanilla APRN.SHIPPING ORDER CLERK Patient calling with blood sugar readings Camila Harmon is a 62 year old female who reports glucose readings as noted. Meal # 1 = Breakfast or first meal of day, Meal # 2 = Lunch, # 3 = Evening meal DATE 04/16 04/17 04/18 04/19 Fasting 236 213 201 198 Post Meal #1 Before Meal 218 274 198 211 Post Meal # 2 Before Meal 206 289 201 Post Meal # 3 Bedtime 189 176 189 Other Any low blood sugars during this period of reporting No Patient's diabetes medications as follows: Metformin, Glimepiride, Trulicity as prescribed and Jardiance started 04/15/23. documented in this encounter [facility] 04-16-2023 Miscellaneous Notes I reached out to the patient to discuss the information that is on her referral. The patient was unable to be reached. I left a message requesting that the patient return my call. Carrie Perry April 16, 2023 1:50 PM ----- Message from Jessica Hill sent at 04/15/2023 2:27 PM EST ----- Regarding: FW: Endocrinology/new pt/ has referral to schedule with a transport pilot in [facility] Luis Antonio Carrie, How can we re-route this? She doesn't appear to be our patient and normally the doctor puts in a referral to the transport pilot. Thanks ----- Message ----- From: Jolanta Schwarz Sent: 04/15/2023 2:11 PM EST To: [facility] Triage Pool Subject: Endocrinology/new pt/ has referral to [facility]# Patient: Camial Harmon Date of : 1960 Primary Care Provider: Emily Wang MD Patient has been identified by name and Date of (Y/N): y Patient: Camila Harmon Date of : 1960 Provider for this encounter: Emily Wang MD Reason for the call/escalation: has referral to schedule with a transport pilot in endo Was Patient Referred to [facility]/Seek Emergency Treatment (Y/N): no Did Patient Agree (Y/N): n/a Was An Attempt Made To Transfer The Patient To The Office (Y/N): no Were You Able To Reach Someone At The Office (Y/N): n/a If Yes - Patient Was Transferred To (Caregivers Name): n/a If No - Which [facility] Leadership Deodorizer Operator Did You Speak With Regarding This Patient: n/a Was an appointment scheduled (Y/N): no-unable to schedule with transport pilot Reason patient was requesting visit (RFV/signs and symptoms/diagnosis) : has referral to schedule with a transport pilot in endo Person calling if other than patient: n/a Return call to if other than patient: n/a Best contact number: [phone] Thank you, Jolanta cShwarz April 15, 2023 2:08 PM documented in this encounter [facility] 04-16-2023 Miscellaneous Notes Patient notified of results, verbalizes understanding of instructions. Nargis Reynaga LPN Can you please call the patient and let her know that she will take the Jardiance once daily, this is usually in the morning. If we decide to add on insulin this will be done at nighttime. I want her to continue to monitor glucose at home and work on diet. Message to office on Wednesday with her glucose readings. Thank you. Aileen Quintanilla APRN.FIDEL Pt called to check when she should take the Jardiance. Pt picked up last night and it says take in the am and when she called the pharmacy to check they told her this is when it is normally taken. Pt thinks she was instructed to take at night. Pt did take this am at 10:28 after taking her blood sugar and it was 298, before breakfast and meds. Please advise pt when to take medication. Mary Latif LPN documented in this encounter [facility] 04-15-2023 Instructions Aileen Quintanilla APRN.FIDEL - 04/15/2023 1:30 PM EST Start Jardiance 25 mg daily Continue to take all other medication as prescribed. Keep up coming appt with Endocrinology May schedule with diabetes transport pilot Work on limiting high carb foods, increase protein, veggies, and water. Watch sugar sugary drinks Monitor glucose at home, please call the office or mychart by Wednesday with readings. Consult has been placed for psychiatry Recommend tracking food, myfitnesspal Follow up as scheduled or sooner as needed. documented in this encounter [facility] 04-15-2023 History of Present illness Narrative This is a 62 year old female who presents today with: Patient presents with: Follow Up: ER follow up HISTORY OF PRESENT ILLNESS: Camila Harmon is a 62 year old female. Patient presents with: Follow Up: ER follow up HOSPITAL/ER FOLLOW UP: Reason for visit: Elevated glucose Which facility: [facility] ER Date of visit: 04/12/2023 Diagnosis: Hyperglycemia, poorly controlled diabetes Testing done: CBC normal, magnesium low 1.4, glucose 341, sodium 133. Urinalysis +3 glucose. Blood gases showed no sign of acidosis. Treatment given: IV fluids Current symptoms: Still having ongoing elevated glucose readings at home, 300s to 400. Last A1c in March was 10.7, has upcoming appointment with endocrinology in May. In the past refused to start insulin, refers that she does not like needles. Still taking metformin 500 mg twice daily, glimepiride 4 mg twice daily, and Trulicity 4.5 mg weekly. Checking fasting glucose 300's. 200-300 around meals. Not currently watching diet but trying to increase veggies. Has had some increase urination and thirst. No vision changes. Mild tingling in the feet bilateral. Increased sadness and anxiety. Daughter passed in 2021. Has been referred to psychiatry in the past, had 1 visit. Currently taking Paxil 40 mg daily, BuSpar 15 mg 3 times daily, and Ativan 0.5 mg, 2 tablets twice daily. Increase stress at work. Having marital problems. Does not feel like supports her. Is tearful. is present today but does not voice any concerns. Has tried therapy in the past and refers she did not like this due to discussing her childhood. No SI/HI. PAST MEDICAL HISTORY: PAST MEDICAL HISTORY Diagnosis Date Coronary artery disease Depressive disorder, not elsewhere classified Enlarged liver Excessive or frequent menstruation 07/06/2004 s/p TVH Migraine with aura, without mention of intractable migraine without mention of status migrainosus Other anxiety states Pure hypercholesterolemia S/P primary angioplasty with coronary stent 11/06/2008 Type II or unspecified type diabetes mellitus without mention of complication, not stated as uncontrolled PAST SURGICAL HISTORY Procedure Laterality Date CARPAL TUNNEL Bilateral 03/05/2017 COLONOSCOPY FLX DX W/COLLJ SPEC WHEN PFRMD 07/19/2013 Colonoscopy EXTRACTION, ERUPTED TOOTH OR EXPOSED ROOT (ELEVATION AND/OR FORCEPS REMOVAL) wisdom teeth HEART CATHETERIZATION N/A 02/11/2022 HYSTERECTOMY HX PAST SURGICAL HISTORY OF 02/22/2002 BREAST REDUCTION PAST SURGICAL HISTORY OF 2008, 2011 stent, LAD X2. VAGINAL HYSTERECTOMY UTERUS 250 GM/< 07/2004 Hysterectomy, vaginal ALLERGIES Penicillins, Percocet [Oxycodone-Acetaminophen], and Tylenol-Codeine Elixir MEDICATIONS Current Outpatient Medications Medication Sig LORazepam (ATIVAN) 0.5 mg Take 2 tablets by mouth two times a day for 90 days. gabapentin (NEURONTIN) 300 mg capsule Take 1 capsule by mouth two times a day for [address] (PROTONIX) 40 mg tablet Take 1 tablet by mouth daily before breakfast. Take on empty stomach, 1/2 hr before meal. magnesium oxide (MAG-OX) 400 mg (241.3 mg magnesium) tablet Take 1 tablet by mouth two times a day. nitroglycerin sublingual (NITROQUICK) 0.4 mg SL tablet Dissolve 1 tablet under the tongue as needed. FOR CHEST PAIN. IF NO RELIEF CALL 911 blood sugar diagnostic (BLOOD GLUCOSE TEST) test strip Test blood sugar(s) one times daily. Dx: Type 2 DM - Uncontrolled E11.65 Insulin: No PARoxetine (PAXIL) 40 mg tablet Take 1 tablet by mouth once daily. dulaglutide (TRULICITY) 4.5 mg/0.5 mL pen injector Inject 4.5 mg subcutaneously one time a week. glimepiride (AMARYL) 4 mg tablet Take 1 tablet by mouth twice daily with meals. atenolol (TENORMIN) 100 mg tablet take 1 tablet by mouth once daily. ezetimibe (ZETIA) 10 mg tablet Take 1 tablet by mouth once daily. cyclobenzaprine (FLEXERIL) 10 mg tablet Take 1 tablet by mouth three times daily as needed for muscle spasm. promethazine (PHENERGAN) 25 mg tablet Take 1 tablet by mouth every 6 hours as needed for nausea/vomiting. meclizine (ANTIVERT) 25 mg tab Take 1 tablet by mouth three times daily as needed. lisinopril (ZESTRIL) 20 mg tablet Take 1 tablet by mouth twice daily. atorvastatin (LIPITOR) 80 mg tablet Take 1 tablet by mouth daily at bedtime for cholesterol. metFORMIN (GLUCOPHAGE) 500 mg tablet Take 1 tablet by mouth twice daily with meals. hydrOXYzine HCl (ATARAX) 25 mg tablet Take 1 tablet by mouth every 6 hours as needed for anxiety. busPIRone (BUSPAR) 15 mg tablet Take 1 tablet by mouth three times daily. Blood-Glucose Meter Test blood sugar(s) 1 times daily. Dx: Type 2 DM - Uncontrolled E11.65 Insulin: No Lancets lancets Test blood sugar(s) 1 times daily. Dx: Type 2 DM - Uncontrolled E11.65 Insulin: No albuterol HFA (PROVENTIL HFA, VENTOLIN HFA) 90 mcg/actuation inhaler Inhale 2 Puffs as instructed every 4 hours as needed for wheezing/shortness of breath. diclofenac (VOLTAREN) 1 % topical gel Apply 2 g to affected area four times daily. Lancets lancets Test blood sugar(s) 1 times daily. Dx: E11.. Insulin: No aspirin 81 mg chewable tablet Take 81 mg by mouth once daily. Blood-Glucose Meter monitoring kit Glucose Meter of Choice - Kit - Dx: Type 2 DM - Uncontrolled multivitamins(DAILY MULTIVITAMIN TAB) Take one(1) tablet daily. No current facility-administered medications for this visit. FAMILY HISTORY Problem Relation Age of Onset Hypertension Mother Diabetes Mother Heart Mother [place], age 72; first dx age late 60's Lipids Mother Stroke Mother Blindness Mother Hypertension Father Lipids Father Diabetes Father Social History Tobacco Use Smoking status: Former Years: 3 Types: Cigarettes Quit date: 06/02/2020 Years since quittin.8 Smokeless tobacco: Never Tobacco comments: social smoking for 3 years. Occasional smoking when upset Vaping Use Vaping Use: Never used Substance Use Topics Alcohol use: Yes Comment: Socially Drug use: No REVIEW OF SYSTEMS GENERAL: No weight loss, malaise or fevers/chills HEENT: Negative for frequent or significant headaches, No changes in hearing or vision. NECK: Negative for lumps, goiter, pain and significant neck swelling RESPIRATORY: Negative for cough, hemoptysis, wheezing, dyspnea or shortness of breath CARDIOVASCULAR: Negative for chest pain, leg swelling, orthopnea, or palpitations GI: No nausea, vomiting, or diarrhea/constipation. No hematochezia/melena. No heartburn or reflux symptoms. : No history of dysuria, frequency or incontinence MUSCULOSKELETAL: Negative for joint pain or swelling. SKIN: Negative for lesions, rash, and itching ENDOCRINE: + Increase thirst/urination NEURO: No history of headaches, syncope, paralysis, seizures or tremors MOOD: + Sadness/Anxiety EXAM: BP 130/82 Pulse 87 Resp 16 Wt 93.4 kg (206 lb) SpO2 95% BMI 38.92 kg/m PHYSICAL EXAM: General Appearance: Well appearing, alert, in no acute distress, well-hydrated, well nourished.. Skin: Skin color, texture, turgor normal, no suspicious rashes or lesions. Head: Normocephalic, no masses, lesions, tenderness or abnormalities. Eyes: Anicteric sclera. Pupils are equally round and reactive to light. Extraocular movements are intact. . Lungs: Lungs clear to auscultation. No wheezing, rhonchi, rales.. Heart: RRR without murmur, gallop, or rubs. No ectopy. Extremities: No deformities, edema, skin discoloration, clubbing or cyanosis. Good capillary refill. . Peripheral Pulses: Normal, Capillary refill <2secs, strong peripheral pulses, Pulses palpable. Neurologic: Gait normal. Reflexes normal and symmetric. Sensation grossly intact.. Mood: ASSESSMENT/PLAN: 1. Hospital discharge follow-up - ICD9: V67.59, ICD10: Z09 (primary diagnosis) - Still having hyperglycemia since discharge. 2. Poorly controlled diabetes mellitus (HCC) - ICD9: 250.00, ICD10: E11.65 - Uncontrolled - Continue current medications - Start empagliflozin (Jardiance) 25 mg daily, adamant that she does not want to start insulin. - Instructed to contact the office by Wednesday with glucose readings. Recommend adding on long-acting insulin at bedtime, patient is agreeable if glucose does not improve. - Discussed in great detail importance of lifestyle changes. - Recommend tracking food. Increase protein, veggies, and get some form of exercise. - Keep up coming appointment with Endocrinology in May. - Discussed need for and benefit of weight loss. BMI 38.92 kg/(m^2) - ENDOCRINOLOGY DIETITIAN VISIT (MNT) - EMPAGLIFLOZIN 25 MG TABLET 3. Anxiety with depression - ICD9: 300.4, ICD10: F41.8 - Due to on going difficult with mental health recommend consult with psychiatry. - CONSULT TO PSYCHIATRY Follow up as scheduled or sooner as needed. Discussed treatment plan and patient voices understanding. Patient's questions answered appropriately. Medications and potential side effects were discussed and patient voices understanding. Aileen Quintanilla APRN.SHIPPING ORDER CLERK This note was partially generated using [employer] recognition system. Note was reviewed for accuracy. There may be minor misspellings or grammar miscues with [employer] voice recognition. documented in this encounter [facility] 04-14-2023 Miscellaneous Notes Noted, thank you. Aileen Quintanilla APRN.SHIPPING ORDER CLERK Pt called back & accepted sooner appt, pt will be seen 04/15/23. Lianne Armas LPN Pt states no diabetic med changes were made. Verified that she takes the diabetic meds listed in her chart. She reports her blood sugars have been averaging around 350s. Pt wants to get started with a transport pilot. Pt talked about being under a great deal of stress, brought up her not doing anything around the house to help & that her daughter was murdered last year. Pt began crying on the phone. Pt states she tried counseling & they just wanted to bring up pt's past & not deal with what is going on now. Pt has appt with LEMIRA Quintanilla 04/19/23, appt was offered sooner appt tomorrow. Pt has another appt that she is going to see if she can reschedule & will call right back if she can come in tomorrow. Pt states she hates giving herself shots but if she has to she will be willing to try - lantus. I told pt we have a nurse that can teach her how to do it. Lianne Armas LPN Call placed to patient with no answer. Voicemail left for patient to return call and ask to speak to a triage nurse to receive provider message. Olga Samayoa, RN Can you please call the patient back and let her know that no labs are not needed at this time, we completed labs early March including the A1c. Can you please ask if the hospital made adjustments to her diabetic medications? Aileen Quintanilla APRN.FIDEL Patient calls to ask if provider (specifically requests Aileen who is scheduled to see patient) would want to order any labs or a HGBA1C prior to hospital follow up on 04/19/2023 for Hyperglycemia. Patient also asking about a referral to transport pilot. Scheduled to see Melina Luis LOG HANDLER with endocrinology on 05/12/2023 and was asking specifically for someone to help with meal planning. Patient emotional. Reports her BS is currently 351. Asymptomatic besides feels exhausted and run down. No missed doses of metformin or Trulicity. Olga Samayoa, KAUSHAL documented in this encounter [facility] 01-29-2023 Miscellaneous Notes OK to refill as ordered Emily Wang MD [facility] 01/20/23 NOV 02/19/23 Pharmacy verified in [facility] Patient has been identified by name and date of : Yes Patient aware RX will be sent to pharmacy. No need to notify patient. Patient phones for refill(s): Requested Prescriptions Pending Prescriptions Disp Refills PARoxetine (PAXIL) 40 mg tablet 30 tablet 3 Sig: Take 1 tablet by mouth once daily. Date of last office visit : 01/20/2023 Date of next office visit : 02/19/2023 Last 2 Encounter Wt Readings: Date: Wt: 01/20/2023 92.1 kg (203 lb) 11/25/2022 90.7 kg (200 lb) Not applicable Please advise. Roxanne Kohli documented in this encounter [facility] 01-22-2023 Miscellaneous Notes Patient returned call and given provider's message below and patient verbalized understanding. Brianna Kaur RN Left message for patient to call office back Татьяна Barragan Ma Please call patient and let her know her vaginal swab shows yeast infection. Will treat with diflucan- take one pill today and repeat in 3 days if needed . Aishwarya Bailey APRN.FIDEL documented in this encounter [facility] 01-20-2023 History of Present illness Narrative 01/20/2023 Patient presents with: Recheck: Strong urine, vaginal drainage that's white, area is itchy and patient believes there is one bump. SUBJECTIVE: This is a 62 year old that is here today for Above Complaints. Patient reports strong smelling urine for the last month. Also has been having pasty white discharge and vaginal itching. Believes she has one bump to her left labial area. Reports bumps is itching. Admits to nausea and occasional vomiting, however the nausea has been ongoing since August and it was recommended she see General Surgery for her colonoscopy as well as possible EGD, however she has not scheduled this. Also admits to urinary urgency and frequency. + Diarrhea but she reports she has IBS. Denies weight loss, fevers, abdominal pain, hematochezia, melana, dysuria or hematuria Component Latest Ref Rng & Units 01/20/2023 GLUCOSE UA (POCT) Negative mg/dL 500 (A) BILIRUBIN UA (POCT) Negative Negative KETONE UA (POCT) Negative mg/dL Negative SPECIFIC GRAVITY UA (POCT) 1.005 - 1.030 1.020 HEMOGLOBIN/BLOOD UA (POCT) Negative Trace-intact (A) PH UA (POCT) 4.5 - 8.0 5.5 PROTEIN UA (POCT) Negative mg/dL Negative UROBILINOGEN UA (POCT) Normal E.U./dL 0.2 NITRITE UA (POCT) Negative Negative LEUKOCYTES UA (POCT) Negative Negative COLOR UA (POCT) Yellow CLARITY UA (POCT) Slightly Cloudy PAST MEDICAL HISTORY Diagnosis Date Coronary artery disease Depressive disorder, not elsewhere classified Enlarged liver Excessive or frequent menstruation 07/06/2004 s/p TVH Migraine with aura, without mention of intractable migraine without mention of status migrainosus Other anxiety states Pure hypercholesterolemia S/P primary angioplasty with coronary stent 11/06/2008 Type II or unspecified type diabetes mellitus without mention of complication, not stated as uncontrolled ALLERGIES Penicillins, Percocet [Oxycodone-Acetaminophen], and Tylenol-Codeine Elixir MEDICATIONS Current Outpatient Medications Medication Sig dulaglutide (TRULICITY) 4.5 mg/0.5 mL pen injector Inject 4.5 mg subcutaneously one time a week. glimepiride (AMARYL) 4 mg tablet Take 1 tablet by mouth twice daily with meals. atenolol (TENORMIN) 100 mg tablet take 1 tablet by mouth once daily. LORazepam (ATIVAN) 0.5 mg Take 2 tablets by mouth twice daily for 90 days. gabapentin (NEURONTIN) 300 mg capsule Take 1 capsule by mouth twice daily for 90 days. ezetimibe (ZETIA) 10 mg tablet Take 1 tablet by mouth once daily. cyclobenzaprine (FLEXERIL) 10 mg tablet Take 1 tablet by mouth three times daily as needed for muscle spasm. pantoprazole DR (PROTONIX) 40 mg tablet Take 1 tablet by mouth daily before breakfast. Take on empty stomach, 1/2 hr before meal. promethazine (PHENERGAN) 25 mg tablet Take 1 tablet by mouth every 6 hours as needed for nausea/vomiting. meclizine (ANTIVERT) 25 mg tab Take 1 tablet by mouth three times daily as needed. PARoxetine (PAXIL) 40 mg tablet Take 1 tablet by mouth once daily. magnesium oxide (MAG-OX) 400 mg (241.3 mg magnesium) tablet Take 1 tablet by mouth twice daily. lisinopril (ZESTRIL) 20 mg tablet Take 1 tablet by mouth twice daily. atorvastatin (LIPITOR) 80 mg tablet Take 1 tablet by mouth daily at bedtime for cholesterol. metFORMIN (GLUCOPHAGE) 500 mg tablet Take 1 tablet by mouth twice daily with meals. hydrOXYzine HCl (ATARAX) 25 mg tablet Take 1 tablet by mouth every 6 hours as needed for anxiety. busPIRone (BUSPAR) 15 mg tablet Take 1 tablet by mouth three times daily. Blood-Glucose Meter Test blood sugar(s) 1 times daily. Dx: Type 2 DM - Uncontrolled E11. Insulin: No Lancets lancets Test blood sugar(s) 1 times daily. Dx: Type 2 DM - Uncontrolled . Insulin: No blood sugar diagnostic (BLOOD GLUCOSE TEST) test strip Test blood sugar(s) 1 times daily. Dx: Type 2 DM - Uncontrolled Insulin: No nitroglycerin sublingual (NITROQUICK) 0.4 mg SL tablet Dissolve 1 tablet under the tongue as needed. FOR CHEST PAIN. IF NO RELIEF CALL 911 albuterol HFA (PROVENTIL HFA, VENTOLIN HFA) 90 mcg/actuation inhaler Inhale 2 Puffs as instructed every 4 hours as needed for wheezing/shortness of breath. blood sugar diagnostic (BLOOD GLUCOSE TEST) test strip Test blood sugar(s) 1 times daily. Dx: Type 2 DM - Uncontrolled Insulin: No diclofenac (VOLTAREN) 1 % topical gel Apply 2 g to affected area four times daily. Lancets lancets Test blood sugar(s) 1 times daily. Dx: E11.65. Insulin: No aspirin 81 mg chewable tablet Take 81 mg by mouth once daily. Blood-Glucose Meter monitoring kit Glucose Meter of Choice - Kit - Dx: Type 2 DM - Uncontrolled multivitamins(DAILY MULTIVITAMIN TAB) Take one(1) tablet daily. No current facility-administered medications for this visit. Medications and allergies reviewed by this provider. SOCIAL HISTORY Social History Tobacco Use Smoking status: Former Years: 3 Types: Cigarettes Quit date: 06/02/2020 Years since quittin.6 Smokeless tobacco: Never Tobacco comments: social smoking for 3 years. Occasional smoking when upset Vaping Use Vaping Use: Never used Substance Use Topics Alcohol use: Yes Comment: Socially Drug use: No REVIEW OF SYSTEMS All other reviewed and negative other than HPI. OBJECTIVE: BP 148/80 Pulse 68 Temp 36.2 C (97.1 F) Resp 16 Wt 92.1 kg (203 lb) SpO2 97% BMI 34.84 kg/m . Vital signs reviewed by this provider. APPEARANCE Well appearing, alert, in no acute distress, well-hydrated, well nourished. EYES conjunctiva and sclera normal. HEART RRR with normal S1 and S2, no murmurs, no gallops, no JVD appreciated LUNG clear to auscultation. No wheezes, rhonchi or rales ABDOMEN bowel sounds normoactive, no bruits, soft, non-tender, non-distended FEMALE Normal external genitalia and no vaginal drainage observed SKIN Skin color, texture, turgor normal, no suspicious rashes or lesions to exposed skin Pneumococcal Vaccine(1 - PCV) Never done BP Controlled (<130/80) Never done Mammogram Screening due on 04/15/2018 DTaP,Tdap,Td Vaccine(2 - Td or Tdap) due on 08/27/2019 Colorectal Cancer Screening due on 07/06/2021 RSV Vaccine(1 - 1-dose 60+ series) Never done Influenza Vaccine(1) due on 11/06/2022 Covid-19 Vaccine(4 - 2022- season) due on 11/06/2022 Dilated Retinal Exam due on 12/05/2022 HIV Screening due on 02/12/2023 HbA1C due on 02/25/2023 Urine Albumin:Creatinine Ratio due on 08/25/2023 Diabetic Foot Exam due on 08/26/2023 Annual PCP Team Chronic Disease Visit due on 11/26/2023 LDL Cholesterol due on 11/27/2023 Hepatitis C Screening Completed Shingrix Vaccine Completed Pap Testing Discontinued HPV Testing Discontinued ASSESSMENT/PLAN: 1. Bad odor of urine - ICD9: 791.9, ICD10: R82.90 (primary diagnosis) - no red flag symptoms or exam findings - red flag symptoms discussed, verbalizes understanding - UA DIP, URINE (POC) - follow-up with PCP if persists 2. Urinary urgency - ICD9: 788.63, ICD10: R39.15 - plan as in #1 - UA DIP, URINE (POC) 3. Vaginal discharge - ICD9: 623.5, ICD10: N89.8 - no vaginal discharge on examination today - JAKOB/TRICHOMONAS NAAT - follow-up pending results Aishwarya Bailey APRN.CNP Prescription instructions reviewed with patient as applicable. Patient advised if symptoms do not improve or if symptoms worsen sooner, to contact their primary care physician. Potential red flag symptoms discussed with the patient. Reviewed appropriate action plan to take if red flag symptoms occur. Patient agreeable to treatment plan. I spent a total of 35 minutes on the date of the service which included preparing to see the patient, [id number] patient care, completing clinical documentation, obtaining and/or reviewing separately obtained history, performing a medically appropriate examination, counseling and educating the patient/family/caregiver, and ordering medications, tests, or procedures. documented in this encounter [facility] 12-04-2022 Miscellaneous Notes The following approved medication requests have been transmitted electronically. Requested Prescriptions Signed Prescriptions Disp Refills dulaglutide (TRULICITY) 4.5 mg/0.5 mL pen injector 2 mL 11 Sig: Inject 4.5 mg subcutaneously one time a week. Authorizing Provider: AILEEN QUINTANILLA APRN.CNP Spoke with patient. Given message from provider's office. Patient verbalizes understanding. She is willing to increase Trulicity. Drug [facility] pharmacy. She states her urinary symptoms have resolved. Areli Park RN TC to pt. LM to call office, ask for triage nurse to get results. Nargis Reynaga LPN Can you please call the patient and let her know I reviewed her lab and urine results. Urine microanalysis was normal, culture came back again with mixed microbiota. This is from contamination when collecting sample. If she still having urinary symptoms please let me know. A1c has came down from 10.1 to 10.0. HDL was low and liver enzymes are still mildly elevated. I would recommend making changes to her current diabetes medication, I know at last office visit we discussed increasing the Trulicity. The next dose would be 4.5 mg weekly. If she is agreeable please verify pharmacy. I would like to stress the importance of lifestyle changes at home to help improve this. She needs to decrease processed foods in the diet and eat a low-carb diet. Increase lean protein, vegetables, and get some form of exercise. Recheck labs in 3 months prior to office visit. Thank you. Aileen Quintanilla APRN.SHIPPING ORDER CLERK documented in this encounter [facility] 11-30-2022 Miscellaneous Notes The following approved medication requests have been transmitted electronically. Requested Prescriptions Pending Prescriptions Disp Refills glimepiride (AMARYL) 4 mg tablet [Pharmacy Med Name: glimepiride 4 mg tablet] 180 tablet 3 Sig: Take 1 tablet by mouth twice daily with meals. atenolol (TENORMIN) 100 mg tablet [Pharmacy Med Name: atenolol 100 mg tablet] 90 tablet 3 Sig: take 1 tablet by mouth once daily. Bahman Edmonds APRN.SHIPPING ORDER CLERK Patient phones requesting refills as follows: Requested Prescriptions Pending Prescriptions Disp Refills glimepiride (AMARYL) 4 mg tablet [Pharmacy Med Name: glimepiride 4 mg tablet] 180 tablet 3 Sig: Take 1 tablet by mouth twice daily with meals. atenolol (TENORMIN) 100 mg tablet [Pharmacy Med Name: atenolol 100 mg tablet] 90 tablet 3 Sig: take 1 tablet by mouth once daily. [facility] 11/25/22 NOV 02/19/23 Please review and advise. Bia Kyle LPN documented in this encounter [facility] 11-25-2022 Miscellaneous Notes Pt had appt with PCP today. Claudia Kiser MA Left message for pt to call back. Claudia Kiser MA Please notify that testing positive for yeast infection. The diflucan provided should treat it. Notify that the urine culture showed likely contamination. If still having symptoms will need f/u to recheck documented in this encounter [facility] 11-25-2022 Instructions Aileen Quintanilla APRN.FIDEL - 11/25/2022 11:46 AM EDT Get fasting labs completed Complete urine test at the lab. Continue to take all medication as prescribed. Work on eating a low carb diet. Decrease processed foods, increase protein, veggies, and get some form of exercise. Get repeat labs in 3 months prior to next office visit. documented in this encounter [facility] 11-25-2022 History of Present illness Narrative This is a 62 year old female who presents today with: Patient presents with: Follow Up: 3 month follow up HISTORY OF PRESENT ILLNESS: Camila Harmon is a 62 year old female. Patient presents with: Follow Up: 3 month follow up 3 month follow up. GERD: Currently taking Nexium 20 mg as needed. HTN: Does not check BP at home. Has been following with Cardiology Dr. Nash for chest pain. Is taking Lisinopril 10 mg BID and Atenolol 100 mg daily. KORY/Depression: Taking Paxil 40 mg 1 tablet daily, Hydoxyzine 25 mg 1 tab po every 6 hrs prn, Buspar 15 mg 1 tab po TID prn and Ativan 0.5 mg, 2 pills BID. Following with [facility] once a month, which she likes better. Has been having increased anxiety and depression due to the passing of her daughter in February who struggled from drug abuse issues. DM: Reports overall feeling well. Medication side effects: No. Home sugar checks: 200's Hypoglycemic spells: No. Watching diet: No. Sometimes Unexpected weight loss: No. Polyuria, polydipsia: Yes. Vision Changes: No. Foot lesions or numbness or pain: No. Taking Metformin 500 mg BID, Trulicity 1.5 mg weekly, and Amaryl 4 mg BID. Denies follows with Podiatry, needs DM foot exam. Has Eye exam done through Dr. Kevin. Last A1C 10.1, denied wanting to make medications at that time. Due for repeat labs now. Lipid: Taking Lipitor 40 mg daily, tolerates well. Dysuria, went to urgent care for urinary symptoms as well as vaginal yeast infection. Started on Diflucan. Urine culture came back with mixed micobiota. Refers she is till having dysuria. No abdominal pain or hematuria. PAST MEDICAL HISTORY: PAST MEDICAL HISTORY Diagnosis Date Coronary artery disease Depressive disorder, not elsewhere classified Enlarged liver Excessive or frequent menstruation 07/06/2004 s/p TVH Migraine with aura, without mention of intractable migraine without mention of status migrainosus Other anxiety states Pure hypercholesterolemia S/P primary angioplasty with coronary stent 11/06/2008 Type II or unspecified type diabetes mellitus without mention of complication, not stated as uncontrolled PAST SURGICAL HISTORY Procedure Laterality Date CARPAL TUNNEL Bilateral 03/05/2017 COLONOSCOPY FLX DX W/COLLJ SPEC WHEN PFRMD 07/19/2013 Colonoscopy EXTRACTION, ERUPTED TOOTH OR EXPOSED ROOT (ELEVATION AND/OR FORCEPS REMOVAL) wisdom teeth HEART CATHETERIZATION N/A 02/11/2022 HYSTERECTOMY HX PAST SURGICAL HISTORY OF 02/22/2002 BREAST REDUCTION PAST SURGICAL HISTORY OF 2008, 2011 stent, LAD X2. VAGINAL HYSTERECTOMY UTERUS 250 GM/< 07/2004 Hysterectomy, vaginal ALLERGIES Penicillins, Percocet [Oxycodone-Acetaminophen], and Tylenol-Codeine Elixir MEDICATIONS Current Outpatient Medications Medication Sig LORazepam (ATIVAN) 0.5 mg Take 2 tablets by mouth twice daily for 90 days. gabapentin (NEURONTIN) 300 mg capsule Take 1 capsule by mouth twice daily for 90 days. ezetimibe (ZETIA) 10 mg tablet Take 1 tablet by mouth once daily. cyclobenzaprine (FLEXERIL) 10 mg tablet Take 1 tablet by mouth three times daily as needed for muscle spasm. pantoprazole DR (PROTONIX) 40 mg tablet Take 1 tablet by mouth daily before breakfast. Take on empty stomach, 1/2 hr before meal. promethazine (PHENERGAN) 25 mg tablet Take 1 tablet by mouth every 6 hours as needed for nausea/vomiting. meclizine (ANTIVERT) 25 mg tab Take 1 tablet by mouth three times daily as needed. PARoxetine (PAXIL) 40 mg tablet Take 1 tablet by mouth once daily. magnesium oxide (MAG-OX) 400 mg (241.3 mg magnesium) tablet Take 1 tablet by mouth twice daily. lisinopril (ZESTRIL) 20 mg tablet Take 1 tablet by mouth twice daily. atorvastatin (LIPITOR) 80 mg tablet Take 1 tablet by mouth daily at bedtime for cholesterol. metFORMIN (GLUCOPHAGE) 500 mg tablet Take 1 tablet by mouth twice daily with meals. dulaglutide (TRULICITY) 3 mg/0.5 mL pen injector Inject 3 mg subcutaneously one time a week. hydrOXYzine HCl (ATARAX) 25 mg tablet Take 1 tablet by mouth every 6 hours as needed for anxiety. busPIRone (BUSPAR) 15 mg tablet Take 1 tablet by mouth three times daily. atenolol (TENORMIN) 100 mg tablet Take 1 tablet by mouth once daily. glimepiride (AMARYL) 4 mg tablet Take 1 tablet by mouth twice daily with meals. Blood-Glucose Meter Test blood sugar(s) 1 times daily. Dx: Type 2 DM - Uncontrolled E11.65 Insulin: No Lancets lancets Test blood sugar(s) 1 times daily. Dx: Type 2 DM - Uncontrolled E11.65 Insulin: No blood sugar diagnostic (BLOOD GLUCOSE TEST) test strip Test blood sugar(s) 1 times daily. Dx: Type 2 DM - Uncontrolled E11.65 Insulin: No nitroglycerin sublingual (NITROQUICK) 0.4 mg SL tablet Dissolve 1 tablet under the tongue as needed. FOR CHEST PAIN. IF NO RELIEF CALL 911 albuterol HFA (PROVENTIL HFA, VENTOLIN HFA) 90 mcg/actuation inhaler Inhale 2 Puffs as instructed every 4 hours as needed for wheezing/shortness of breath. blood sugar diagnostic (BLOOD GLUCOSE TEST) test strip Test blood sugar(s) 1 times daily. Dx: Type 2 DM - Uncontrolled . Insulin: No diclofenac (VOLTAREN) 1 % topical gel Apply 2 g to affected area four times daily. Lancets lancets Test blood sugar(s) 1 times daily. Dx: E11.65. Insulin: No aspirin 81 mg chewable tablet Take 81 mg by mouth once daily. Blood-Glucose Meter monitoring kit Glucose Meter of Choice - Kit - Dx: Type 2 DM - Uncontrolled multivitamins(DAILY MULTIVITAMIN TAB) Take one(1) tablet daily. No current facility-administered medications for this visit. FAMILY HISTORY Problem Relation Age of Onset Hypertension Mother Diabetes Mother Heart Mother [place], age 72; first dx age late 60's Lipids Mother Stroke Mother Blindness Mother Hypertension Father Lipids Father Diabetes Father Social History Tobacco Use Smoking status: Former Years: 3 Types: Cigarettes Quit date: 06/02/2020 Years since quittin.4 Smokeless tobacco: Never Tobacco comments: social smoking for 3 years. Occasional smoking when upset Vaping Use Vaping Use: Never used Substance Use Topics Alcohol use: Yes Comment: Socially Drug use: No REVIEW OF SYSTEMS GENERAL: No weight loss, malaise or fevers/chills HEENT: Negative for frequent or significant headaches, No changes in hearing or vision. NECK: Negative for lumps, goiter, pain and significant neck swelling RESPIRATORY: Negative for cough, hemoptysis, wheezing, dyspnea or shortness of breath CARDIOVASCULAR: Negative for chest pain, leg swelling, orthopnea, or palpitations GI: No nausea, vomiting, or diarrhea/constipation. No hematochezia/melena. No heartburn or reflux symptoms. : + Dysuria MUSCULOSKELETAL: Negative for joint pain or swelling. SKIN: Negative for lesions, rash, and itching ENDOCRINE: Negative for cold or heat intolerance, polyuria, polydipsia and goiter NEURO: No history of headaches, syncope, paralysis, seizures or tremors MOOD: Negative for depression, anxiety, or suicidal ideation. EXAM: BP 110/80 Pulse 72 Resp 16 Wt 90.7 kg (200 lb) SpO2 96% BMI 34.33 kg/m PHYSICAL EXAM: General Appearance: Well appearing, alert, in no acute distress, well-hydrated, well nourished. Skin: Skin color, texture, turgor normal, no suspicious rashes or lesions. Head: Normocephalic, no masses, lesions, tenderness or abnormalities. Eyes: Anicteric sclera. Extraocular movements are intact. Lungs: Lungs clear to auscultation. No wheezing, rhonchi, rales. Heart: RRR without murmur, gallop, or rubs. No ectopy. Extremities: No deformities, edema, skin discoloration, clubbing or cyanosis. Good capillary refill. Peripheral Pulses: Normal, Capillary refill <2secs, strong peripheral pulses, Pulses palpable. Neurologic: Gait normal. Sensation grossly intact. ASSESSMENT/PLAN: 1. Dysuria - ICD9: 788.1, ICD10: R30.0 (primary diagnosis) acute - Patient education for prevention given - Unable to provide urine sample in office, will return to lab. - URINALYSIS, WITH MICROSCOPIC - URINE CULTURE 2. Uncontrolled type 2 diabetes mellitus with hyperglycemia (HCC) - ICD9: 250.02, ICD10: E11.65 - Control undetermined, due for labs - Continue current medications, discussed increasing Trulicity pending lab results. - Counseled on healthy diet and regular exercise - Discussed need for and benefit of weight loss. BMI 34.33 kg/(m^2) - HGB A1C - COMP METABOLIC PANEL 3. Hypertension, essential - ICD9: 401.9, ICD10: I10 - Controlled - Continue current medications - Recommend home blood pressure monitoring, to bring results to next visit - Encouraged sodium restriction, DASH or Mediterranean diet - Recommend regular aerobic exercise 4. Anxiety - ICD9: 300.00, ICD10: F41.9 - Stable, continue to take all medications as prescribed. - Keep scheduled appointments with counselor. 5. Moderate episode of recurrent major depressive disorder (HCC) - ICD9: 296.32, ICD10: F33.1 - Same plan as #4. 6. GERD without esophagitis - ICD9: 530.81, ICD10: K21.9 - Stable, continue to use Nexium as needed. Follow up in 3 months or sooner pending test results. Discussed treatment plan and patient voices understanding. Patient's questions answered appropriately. Medications and potential side effects were discussed and patient voices understanding. Aileen Quintanilla APRN.SHIPPING ORDER CLERK This note was partially generated using Dragon voice recognition system. Note was reviewed for accuracy. There may be minor misspellings or grammar miscues with [employer] voice recognition. documented in this encounter [facility] 11-24-2022 Miscellaneous Notes Left message for patient to return call. Susie Boss LPN Patient was positive for yeast. The medicine she was prescribed yesterday will address and take care of. She was negative for BV. Urine culture remains pending. documented in this encounter [facility] 10-22-2022 Miscellaneous Notes Patient returns call and provider message reviewed. Patient verbalizes understanding. Declined transfer to schedule appointments at this time. Olga Samayoa RN Message left for pt to call back. Kaleigh Dudley Ma Gabapentin dose increased to 300 mg twice daily. Please encourage her to schedule with PHYSICAL THERAPY and pain management. The following approved medication requests have been transmitted electronically. Requested Prescriptions Signed Prescriptions Disp Refills gabapentin (NEURONTIN) 300 mg capsule 60 capsule 2 Sig: Take 1 capsule by mouth twice daily for 90 days. Authorizing Provider: BAHMAN EDMONDS APRN.FIDEL Patient calls to let provider know that right back/buttocks/lower leg pain hasn't improved with adding gabapentin 300 mg at bedtime to the cyclobenzaprine 10 mg 3 times daily as needed. Patient asking what she can try next. OV notes mention increasing gabapentin. No appointments scheduled for physical therapy or pain management consults. Olga Samayoa RN documented in this encounter [facility] 10-21-2022 History of Present illness Narrative Images from the original note were not included. [facility] Department of Cardiovascular Medicine SECTION OF CLINICAL CARDIOLOGY OUTPATIENT VISIT DATE 10/21/22 OUTPATIENT VISIT TYPE ESTABLISHED LUZ 04/14/22 PRIMARY CARE PHYSICIAN: Emily Wang [address] [place] [address] CHIEF COMPLAINT: Chest pain HISTORY OF PRESENT ILLNESS: Ms. Harmon is a 61 year old female with past medical history of HTN, HLD, family history premature CAD, CAD s/p PCI in 2010 and 2008, untreated FLOR, diabetes mellitus type 2, and obesity who presents today for a cardiovascular medicine follow-up visit. Since her last office visit she has started taking a PPI and has noted some improvement in her chest discomfort She is not participating in any daily aerobic exercise. She is not regularly monitoring her blood pressure at home. She denies any lightheadedness, dizziness, presyncope, syncope, or lower extremity edema. Prior Hx 04/14/22 She had an ED visit 12/2021 for 3 weeks of intermittent chest pain and shortness of breath with normal troponin. She had been lost to follow-up for about 3 years prior to this office visit. At the time of her visit her blood pressure was noted to be uncontrolled and her lisinopril was increased to 20 mg twice daily. Her cholesterol was also noted to be under suboptimal control for which her atorvastatin was increased to 80 mg. She was encouraged to start exercising regularly. Plan was for repeat nuclear stress testing with follow-up in 3 months time. She underwent exercise MPI stress on 01/23/22 and was only able to reach 55% predicted heart rate thus was converted to pharmacological which demonstrated mild (<10%) ischemia in the LAD and RCA territory with gated LVEF of 73%. WE sent her to [facility] with Dr. Fernandez on 02/11/22 which showed all her stents to be patent with a 50-60% ISR of the ostial diagonal stent. She has since lost her daughter in February 2022 and has been depressed. Subjective PAST MEDICAL HISTORY Diagnosis Date Coronary artery disease Depressive disorder, not elsewhere classified Enlarged liver Excessive or frequent menstruation 07/06/2004 s/p TVH Migraine with aura, without mention of intractable migraine without mention of status migrainosus Other anxiety states Pure hypercholesterolemia S/P primary angioplasty with coronary stent 11/06/2008 Type II or unspecified type diabetes mellitus without mention of complication, not stated as uncontrolled PAST SURGICAL HISTORY Procedure Laterality Date CARPAL TUNNEL Bilateral 03/05/2017 COLONOSCOPY FLX DX W/COLLJ SPEC WHEN PFRMD 07/19/2013 Colonoscopy EXTRACTION, ERUPTED TOOTH OR EXPOSED ROOT (ELEVATION AND/OR FORCEPS REMOVAL) wisdom teeth HEART CATHETERIZATION N/A 02/11/2022 HYSTERECTOMY HX PAST SURGICAL HISTORY OF 02/22/2002 BREAST REDUCTION PAST SURGICAL HISTORY OF 2008, 2011 stent, LAD X2. VAGINAL HYSTERECTOMY UTERUS 250 GM/< 07/2004 Hysterectomy, vaginal Social History Tobacco Use Smoking status: Former Years: 3 Types: Cigarettes Quit date: 06/02/2020 Years since quittin.3 Smokeless tobacco: Never Tobacco comments: social smoking for 3 years. Occasional smoking when upset Vaping Use Vaping Use: Never used Substance Use Topics Alcohol use: Yes Comment: Socially Drug use: No FAMILY HISTORY Problem Relation Age of Onset Hypertension Mother Diabetes Mother Heart Mother [place], age 72; first dx age late 60's Lipids Mother Stroke Mother Blindness Mother Hypertension Father Lipids Father Diabetes Father ALLERGIES: ALLERGIES Allergen Reactions Penicillins Hives Percocet [Oxycodone* GI Upset Tylenol-Codeine Prerna* Other: See Comments halucinations MEDICATIONS: cyclobenzaprine (FLEXERIL) 10 mg tablet Take 1 tablet by mouth three times daily as needed for muscle spasm. gabapentin (NEURONTIN) 300 mg capsule Take 1 capsule by mouth daily at bedtime for [address] (PROTONIX) 40 mg tablet Take 1 tablet by mouth daily before breakfast. Take on empty stomach, 1/2 hr before meal. promethazine (PHENERGAN) 25 mg tablet Take 1 tablet by mouth every 6 hours as needed for nausea/vomiting. meclizine (ANTIVERT) 25 mg tab Take 1 tablet by mouth three times daily as needed. PARoxetine (PAXIL) 40 mg tablet Take 1 tablet by mouth once daily. magnesium oxide (MAG-OX) 400 mg (241.3 mg magnesium) tablet Take 1 tablet by mouth twice daily. lisinopril (ZESTRIL) 20 mg tablet Take 1 tablet by mouth twice daily. atorvastatin (LIPITOR) 80 mg tablet Take 1 tablet by mouth daily at bedtime for cholesterol. LORazepam (ATIVAN) 0.5 mg Take 2 tablets by mouth twice daily for 90 days. metFORMIN (GLUCOPHAGE) 500 mg tablet Take 1 tablet by mouth twice daily with meals. dulaglutide (TRULICITY) 3 mg/0.5 mL pen injector Inject 3 mg subcutaneously one time a week. hydrOXYzine HCl (ATARAX) 25 mg tablet Take 1 tablet by mouth every 6 hours as needed for anxiety. busPIRone (BUSPAR) 15 mg tablet Take 1 tablet by mouth three times daily. atenolol (TENORMIN) 100 mg tablet Take 1 tablet by mouth once daily. glimepiride (AMARYL) 4 mg tablet Take 1 tablet by mouth twice daily with meals. Blood-Glucose Meter Test blood sugar(s) 1 times daily. Dx: Type 2 DM - Uncontrolled Insulin: No Lancets lancets Test blood sugar(s) 1 times daily. Dx: Type 2 DM - Uncontrolled . Insulin: No blood sugar diagnostic (BLOOD GLUCOSE TEST) test strip Test blood sugar(s) 1 times daily. Dx: Type 2 DM - Uncontrolled . Insulin: No nitroglycerin sublingual (NITROQUICK) 0.4 mg SL tablet Dissolve 1 tablet under the tongue as needed. FOR CHEST PAIN. IF NO RELIEF CALL 911 albuterol HFA (PROVENTIL HFA, VENTOLIN HFA) 90 mcg/actuation inhaler Inhale 2 Puffs as instructed every 4 hours as needed for wheezing/shortness of breath. blood sugar diagnostic (BLOOD GLUCOSE TEST) test strip Test blood sugar(s) 1 times daily. Dx: Type 2 DM - Uncontrolled . Insulin: No diclofenac (VOLTAREN) 1 % topical gel Apply 2 g to affected area four times daily. Lancets lancets Test blood sugar(s) 1 times daily. Dx: E11.65. Insulin: No aspirin 81 mg chewable tablet Take 81 mg by mouth once daily. Blood-Glucose Meter monitoring kit Glucose Meter of Choice - Kit - Dx: Type 2 DM - Uncontrolled E11.65 multivitamins(DAILY MULTIVITAMIN TAB) Take one(1) tablet daily. REVIEW OF SYSTEMS: CARD: See HPI GENERAL: Negative for: Weight loss or gain, Fever and/or Chills +Fatigue HEENT: Negative for: Headache, Impaired Vision, Glasses, Hearing Impairment, Ringing in Ears, Nosebleeds, Bleeding Gums NECK: Negative for: Swelling, Pain, Stiffness RESPIRATORY: Negative for: Cough, Blood in Sputum, Wheezing, Apnea +CRUZ GASTROINTESTINAL: Negative for: Nausea, Vomiting, Diarrhea, Blood in stool, or Dark black stools MUSCULOSKELETAL: Negative for: Muscle or joint pain, Stiffness , Joint swelling NEUROLOGIC/PSYCH: Negative for: focal numbness/weakness, headaches, visual changes, ataxia, speech/language loss +Anxiety SKIN: Negative for: Rashes, Itching HEMATOLOGICAL/LYMPHATIC: Negative for: Easy bruising , Easy bleeding ENDOCRINE: Negative for: Heat or cold intolerance, Excessive sweating, Frequent urination, Frequent thirst Objective PHYSICAL EXAMINATION: BP 134/60 Pulse 70 Ht 162.6 cm (5' 4) Wt 92.9 kg (204 lb 11.2 oz) SpO2 98% BMI 35.14 kg/m General: Well appearing, in no acute distress. Neck: No jugular venous distention, no carotid bruits, carotids have a normal upstroke. Lungs: Clear to auscultation bilaterally, no wheezing or rhonchi. Heart: Regular rhythm, S1, S2 normal, no S3, no S4, no heaves, no rub and no murmur. No peripheral edema . Grade 2/4 distal pulses bilaterally. Abdomen: Soft, nontender, bowel sounds normal, no bruits. Neuro: Oriented to person, place and time, alert, cooperative, gait coordinated. CARDIOVASCULAR MEDICINE TESTING: [facility] 02/15/22:GAYATHRI Fernandez Coronary Anatomy: Right Dominant Injection Site(s): Coronary Artery LMT: _ The LMT is normal. Additional Comment: Normal, short artery. The LAD and left circumflex nearly arise from separate ostia. LAD: _ The proximal LAD is narrowed 40 % - ISR. _ The 1st diagonal is narrowed 60 % - ISR. Additional Comment: Small to moderate caliber vessel. There is a patent stent in the proximal to mid vessel with mild diffuse in-stent restenosis (30-40%). There is a moderate caliber first diagonal branch. There is bifurcation stenting from the proximal to mid LAD into the first diagonal branch. The ostium of the diagonal branch has a 50-60% in-stent restenosis with otherwise mild diffuse disease. The mid mid distal and distal LAD have mild diffuse disease. LCX: _ The Circumflex has mild diffuse disease. RAMUS: _ Ramus Status: Not Applicable. RCA: _ The RCA has mild diffuse disease. Additional Comment: Moderate caliber dominant vessel with mild diffuse disease. Impression: Patent stents in the proximal to mid LAD with mild in-stent restenosis. Bifurcation stenting into the first large diagonal branch with an ostial 50-60% in-stent restenosis. Otherwise mild diffuse disease. Normal LVEDP Recommended Treatment: Medical Therapy. Plan: Continue medical therapy and risk factor modification Last EKG Result Conclusion ECG COMPLETE Collected: 04/14/2022 10:26 AM (Final result) Impression: SINUS BRADYCARDIA OTHERWISE NORMAL ECG Confirmed by ABELARDO NASH D.O. ([id number]) on 04/17/2022 2:54:07 PM Pharm MPI Stress 01/23/2022: 1. SPECT Perfusion Study: Abnormal. 2. No evidence of scarred myocardium. 3. There is mild (<10%) ischemia in the territory of the LAD. 4. There is mild (<10%) ischemia in the territory of the RCA. 5. Right ventricle is normal in size. 6. This is an intermediate risk scan. Gated Stress IR:3D LVEF % 73 Cholesterol, Total (mg/dL) Date Value 05/15/2022 162 03/10/2021 206 HDL Cholesterol (mg/dL) Date Value 05/15/2022 38 03/10/2021 41 LDL Cholesterol (mg/dL) Date Value 05/15/2022 85 03/10/2021 115 Triglyceride (mg/dL) Date Value 05/15/2022 196 03/10/2021 250 PLAN AND RECOMMENDATIONS: Chest Pain - Not likely cardiac with [facility] 02/11/22 showing mild to mod stenosis only - Etiology unclear with possible GI component / improvement with PPI - Nuclear stress test 01/23/22 with mild (<10%) ischemia in the LAD and RCA territory possibly false positive Coronary artery disease - S/P PCI with stent to prox-diag (2008) at [facility] - S/P PCI with stent to LAD (2010) at [facility] - Symptom at time of stents was panic attacks which did not resolve much after PCI - Suboptimal treatment of lipids, HTN, DM and exercise - Lisinopril and statin increased 12/25 - Continue ASA, Statin and BB as currently ordered - Nuclear stress test 01/23 with mild (<10%) ischemia in the LAD and RCA territory Mixed hyperlipidemia - Currently on Atorvastatin 80 mg daily (Increased 12/25) - Last lipid panel 11/2021 with total cholesterol 269, triglycerides 343, and LDL 160 - Normal LFTs 11/2021 Essential hypertension - Optimal control on atenolol, lisinopril, an amlodipine - Encouraged dietary sodium restriction/DASH diet - Reviewed risks of HTN and principles of treatment - Goal of BP <130/80 - Home BP log Diabetes mellitus type 2 - Suboptimal control - Most recent A1c 10.1 (7.7,8, 10.2) - Heart healthy diabetic diet - Exercise - Weight loss Untreated FLOR - Untreated with some tolerance issues to CPAP - Exercise - Weight loss - Sleep medicine consult placed at prior OV CONCLUSION: She is doing well from a cardiac standpoint and overall I was pleased with her left heart catheterization in February 2022 showing mild to moderate stenosis. Her stents were all patent and had only 50 to 60% in-stent restenosis of ostial diagonal branch. There were no significant stenosis lesions to suggest a cause for her prior chest pain and therefore would favor this being more GI this time. She fortunately has had no further chest pain. She should otherwise continue aggressive risk factor modification and routine follow-up. She is not at goal with LDL and will add ezetimibe then check lipid levels in 3 months. She will talk to Dr. Wang about working on better A1c levels again. Thank you for allowing me the privilege of participating in the care of your patient. Please do not hesitate to contact me if there are any questions. Abelardo Nash DO, FACC, FCCP, FACOI This note was partially generated using [employer] voice recognition system and may contain errors related to that system including grammar, punctuation, spelling, and words that may be inappropriate documented in this encounter [facility] 10-06-2022 Miscellaneous Notes Pt calling back to confirm that it was her cholesterol medication that she was to stop while taking the COVID medication. States she was having some brain fog. Confirmed with her that she was correct and she is to stop taking the Lipitor x 8 days. Pt verbalizes understanding. James Perez LPN Pt notified and voiced understanding. Kaleigh Dudley Ma Please let the patient know that I called and Paxlovid. There is a interaction with her Lipitor for her cholesterol. She should not take her cholesterol medication for the next 8 days. The following approved medication requests have been transmitted electronically. Requested Prescriptions Signed Prescriptions Disp Refills nirmatrelvir tablet 300 mg (150 mg x 2) and ritonavir tablet 100 mg in a dose pack (PAXLOVID) 30 tablet 0 Sig: Administer TWO pink nirmatrelvir 150 mg tablets and ONE white ritonavir 100 mg tablet for a total of three tablets twice daily. Authorizing Provider: BAHMAN EDMONDS APRN.FIDEL Nirmatrelvir/Ritonavir (Paxlovid) Considerations Paxlovid is FDA-approved for treatment of mild to moderate COVID-19 in adults who are at high risk for progression to severe COVID-19. Consider use of Paxlovid in the following examples of high risk patients (list is not all inclusive): Age over 65 years Cardiovascular and cerebrovascular disease Chronic disease state (kidney, liver, lung) Diabetes (type 1 or type 2) Immunocompromised state (cancer, solid organ or blood stem cell transplant, HIV) Obesity Paxlovid warnings include serious drug interactions (co-administration with drugs highly dependent on CYP3A for clearance), hypersensitivity reactions, hepatotoxicity, and risk of HIV-1 resistance development. Bahmanadina Edmonds APRN.CNP October 06, 2022 8:35 AM Patient notified of results, verbalizes understanding of instructions. Patient would like Paxlovid. Pharmacy: [facility]. Roberta Ac MA Please let the patient know that her COVID testing shows that she has COVID currently. This would explain her symptoms. She cannot go to work at this time. She should stay at her home for the next 5 days. Then can return to work with a mask for 5 days following that. If she would like Paxlovid, antiviral medication, for COVID, please let me know. Bahman Edmonds APRN.CNP documented in this encounter [facility] 10-06-2022 Instructions Bahman Edmonds APRN.CNP - 10/06/2022 8:35 AM EDT Images from the original note were not included. FACT SHEET FOR PATIENTS, PARENTS, AND CAREGIVERS EMERGENCY USE AUTHORIZATION (EUA) OF PAXLOVID FOR CORONAVIRUS DISEASE 2019 (COVID-19) You are being given this Fact Sheet because your healthcare provider believes it is necessary to provide you with PAXLOVID for the treatment of bfon-up-gdiwtgte coronavirus disease (COVID-19) caused by the SARS-CoV-2 virus. This Fact Sheet contains information to help you understand the risks and benefits of taking the PAXLOVID you may receive. This Fact Sheet also contains information about how to take PAXLOVID and how to report side effects or problems with the appearance or packaging of PAXLOVID. The U.S. Food and Drug Administration (FDA) has issued an Emergency Use Authorization (EUA) to make PAXLOVID available for the treatment of yrfl-ks-lkuwicjq COVID-19 in adults and children 12 years of age and older weighing at least 88 pounds (40 kg) who are at high risk for progression to severe COVID-19, including hospitalization or (for more details about an EUA please see What is an Emergency Use Authorization? at the end of this document). Read this Fact Sheet for information about PAXLOVID. Talk to your healthcare provider about your options or if you have any questions. It is your choice to take PAXLOVID. What is COVID-19? COVID-19 is caused by a virus called a coronavirus. You can get COVID-19 through close contact with another person who has the virus. COVID-19 illnesses have ranged from very wsei-fg-wcuzut, including illness resulting in . While information so far suggests that most COVID-19 illness is mild, serious illness can happen and may cause some of your other medical conditions to become worse. Older people and people of all ages with severe, long lasting (chronic) medical conditions like heart disease, lung disease, and diabetes, for example seem to be at higher risk of being hospitalized for COVID-19. What is PAXLOVID? PAXLOVID is a medicine that is available under EUA for the treatment of zxqj-av-yeawilwx COVID-19 in adults and children 12 years of age and older weighing at least 88 pounds (40 kg) who are at high risk for progression to severe COVID-19, including hospitalization or . Although PAXLOVID is FDA-approved for the treatment of COVID-19 in certain adults (see section What other treatment choices are there?), PAXLOVID use in children remains investigational because it is still being studied. There is limited information about the safety and effectiveness of using PAXLOVID to treat children with cggt-yb-gcpbgmkl COVID-19. What is the most important information I should know about PAXLOVID? PAXLOVID can interact with other medicines causing severe or life-threatening side effects or . It is important to know the medicines that should not be taken with PAXLOVID. Do not take PAXLOVID if: you are taking any of the following medicines: o alfuzosin o amiodarone o apalutamide o carbamazepine o colchicine o dihydroergotamine o dronedarone o eletriptan o eplerenone o ergotamine o finerenone o flecainide o flibanserin o ivabradine o lomitapide o lovastatin o lumacaftor/ivacaftor o lurasidone o methylergonovine o midazolam (oral) o naloxegol o phenobarbital o phenytoin o pimozide o primidone o propafenone o quinidine o ranolazine o rifampin o rifapentine o Miston s Wort (hypericum perforatum) o sildenafil (Revatio ) for pulmonary arterial hypertension o silodosin o simvastatin o tolvaptan o triazolam o ubrogepant o voclosporin These are not the only medicines that may cause serious or life-threatening side effects if taken with PAXLOVID. PAXLOVID may increase or decrease the levels of multiple other medicines. It is very important to tell your healthcare provider about all of the medicines you are taking because additional laboratory tests or changes in the dose of your other medicines may be necessary during treatment with PAXLOVID. Your healthcare provider may also tell you about specific symptoms to watch out for that may indicate that you need to stop or decrease the dose of some of your other medicines. you are allergic to nirmatrelvir, ritonavir, or any of the ingredients in PAXLOVID. See the end of this leaflet for a complete list of ingredients in PAXLOVID. See What are the important possible side effects of PAXLOVID? for signs and symptoms of allergic reactions. What should I tell my healthcare provider before I take PAXLOVID? Tell your healthcare provider if you: have kidney problems. You may need a different dose of PAXLOVID. have liver problems, including hepatitis. have Human Immunodeficiency Virus 1 (HIV-1) infection. PAXLOVID may lead to some HIV-1 medicines not working as well in the future. are or plan to become . It is not known if PAXLOVID can harm your unborn baby. Tell your healthcare provider right away if you are or if you become . are or plan to breastfeed. It is not known if PAXLOVID can pass into your breast milk. Talk to your healthcare provider about the best way to feed your baby during treatment with PAXLOVID. Some medicines may interact with PAXLOVID and may cause serious side effects. Tell your healthcare provider about all the medicines you take, including prescription and ptef-mjg-tbclmuh medicines, vitamins, and herbal supplements. Your healthcare provider can tell you if it is safe to take PAXLOVID with other medicines. You can ask your healthcare provider or pharmacist for a list of medicines that interact with PAXLOVID. Do not start taking a new medicine without telling your healthcare provider. Tell your healthcare provider if you are taking combined control (hormonal contraceptive). PAXLOVID may affect how your hormonal contraceptives work. Females who are able to become should use another effective alternative form of contraception or an additional barrier method of contraception during treatment with PAXLOVID. Talk to your healthcare provider if you have any questions about contraceptive methods that might be right for you. How do I take PAXLOVID? Take PAXLOVID exactly as your healthcare provider tells you to take it. PAXLOVID consists of 2 medicines: nirmatrelvir tablets and ritonavir tablets. The 2 medicines are taken together 2 times each day for 5 days. Nirmatrelvir is an oval, pink tablet. Ritonavir is a white or off-white tablet. PAXLOVID is available in 2 Dose Packs (see Figures A and B below). Your healthcare provider will prescribe the PAXLOVID Dose Pack that is right for you. If you have kidney disease, your healthcare provider may prescribe a lower dose (see Figure B). Talk to your healthcare provider to make sure you receive the correct Dose Pack. Do not remove your PAXLOVID tablets from the blister card before you are ready to take your dose. Take your first dose of PAXLOVID in the morning or evening, depending on when you supervisor opening and picking your prescription, or as your healthcare provider tells you to. Swallow the tablets whole. Do not chew, break, or crush the tablets. Take PAXLOVID with or without food. Do not stop taking PAXLOVID without talking to your healthcare provider, even if you feel better. If you miss a dose of PAXLOVID within 8 hours of the time it is usually taken, take it as soon as you remember. If you miss a dose by more than 8 hours, skip the missed dose and take the next dose at your regular time. Do not take 2 doses of PAXLOVID at the same time. If you take too much PAXLOVID, call your healthcare provider or go to the nearest hospital emergency room right away. If you are taking a ritonavir- or cobicistat-containing medicine to treat hepatitis C or HIV-1 infection, you should continue to take your medicine as prescribed by your healthcare provider. Talk to your healthcare provider if you do not feel better or if you feel worse after 5 days. What are the important possible side effects of PAXLOVID? PAXLOVID may cause serious side effects, including: Allergic reactions, including severe allergic reactions (anaphylaxis) have happened during treatment with PAXLOVID. Stop taking PAXLOVID and get medical help right away if you get any of the following symptoms of an allergic reaction: o skin rash, hives, blisters or peeling skin o painful sores or ulcers in the mouth, nose, throat or genital area o swelling of the mouth, lips, tongue or face o trouble swallowing or breathing o throat tightness o hoarseness Liver Problems. Tell your healthcare provider right away if you get any of the following signs and symptoms of liver problems during treatment with PAXLOVID: o loss of appetite o yellowing of your skin and the white of eyes o dark-colored urine o pale colored stools o itchy skin o stomach-area (abdominal) pain The most common side effects of PAXLOVID include: altered sense of taste and diarrhea. Other possible side effects include: headache vomiting abdominal pain nausea high blood pressure feeling generally unwell These are not all the possible side effects of PAXLOVID. For more information, ask your healthcare provider or pharmacist. What other treatment choices are there? PAXLOVID is FDA-approved for the treatment of fgea-ua-zfpgtnmn COVID-19 in certain adults; however, there are not sufficient quantities of the approved presentations (i.e., dose packs) of PAXLOVID at this time. This EUA continues to authorize the emergency use of PAXLOVID for the approved patient population to ensure continued access in order to meet the public health need. VEKLURY (remdesivir) is FDA-approved for the treatment of vihi-zo-japqmwtw COVID-19 in certain adults and children. Talk with your healthcare provider to see if VEKLURY is appropriate for you. For information on the emergency use of other medicines that are authorized by FDA to treat people with COVID-19, please go to https://www.fda.gov/emergency-prep ehotllrb-wiz-dlsagfbb/juf-djnqr-lq stwymqeg-zmi-gkyigg-framework/jacobo fyznk-fll-nzjvacpbiclhf. Your healthcare provider may talk with you about clinical trials for which you may be eligible. It is your choice to be treated or not to be treated with PAXLOVID. Should you decide not to receive it or for your child not to receive it, it will not change your standard medical care. What if I am or ? There is limited experience treating women or mothers with PAXLOVID. For a mother and unborn baby, the benefit of taking PAXLOVID may be greater than the risk from the treatment. If you are , discuss your options and specific situation with your healthcare provider. If you are , discuss your options and specific situation with your healthcare provider. How do I report side effects or problems with the appearance or packaging of PAXLOVID? Contact your healthcare provider if you have any side effects that bother you or do not go away. Report side effects or problems with the appearance or packaging of PAXLOVID (see Figures A and B above for examples of PAXLOVID Dose Packs) to FDA MedWatch at www.fda.gov/medwatch or call 9-445-NYI-5188 or you can report side effects to [employer]. at the contact information provided below. How should I store PAXLOVID? Store PAXLOVID tablets at room temperature, between 68?F to 77?F (20?C to 25?C). Keep PAXLOVID and all medicines out of the reach of children. What if I have questions about the expiration date for my PAXLOVID? The FDA has extended the expiration date (shelf-life) for some lots of PAXLOVID. To find the extended expiration date, enter the lot number found on the side of carton or bottom of blister pack at this website: https://www.[employer]/ or talk with your healthcare provider. Information on the authorized shelf-life extensions for PAXLOVID may also be found at https://www.fda.gov/emergency-prep qjaebzlf-gka-trvcdkuk/ecb-blzgc-rj kblctpqg-ong-zrxgje-framework/expi lnbiss-uwunbw-kbafepuer. How can I learn more about COVID-19? Ask your healthcare provider. Visit https://www.cdc.gov/COVID19. Contact your local or state public health department. What is an Emergency Use Authorization (EUA)? The [place] FDA has made PAXLOVID available under an emergency access mechanism called an Emergency Use Authorization (EUA). The EUA is supported by a [place] of Health and Human Services (HHS) declaration that circumstances exist to justify the emergency use of drugs and biological products during the COVID-19 pandemic. In issuing an EUA, the FDA has determined, among other things, that based on the total amount of scientific evidence available including data from adequate and well-controlled clinical trials, if available, it is reasonable to believe that the product may be effective for diagnosing, treating, or preventing COVID-19, or a serious or life-threatening disease or condition caused by COVID-19; that the known and potential benefits of the product, when used to diagnose, treat, or prevent such disease or condition, outweigh the known and potential risks of such product; and that there are no adequate, approved, and available alternatives. All of these criteria must be met to allow for the product to be available under an EUA. The EUA for PAXLOVID is in effect for the duration of the COVID-19 declaration justifying emergency use of this product, unless the relevant EUA declaration is terminated or the EUA revoked (after which the products may no longer be used under the EUA). What are the ingredients in PAXLOVID? Active ingredient: nirmatrelvir and ritonavir Nirmatrelvir inactive ingredients: colloidal silicon dioxide, croscarmellose sodium, lactose monohydrate, microcrystalline cellulose, and sodium stearyl fumarate. Film-coating contains: hydroxy propyl methylcellulose, iron oxide red, polyethylene glycol, and titanium dioxide. Ritonavir inactive ingredients: anhydrous dibasic calcium phosphate, colloidal silicon dioxide, copovidone, sodium stearyl fumarate, and sorbitan monolaurate. The film coating may contain: colloidal anhydrous silica, colloidal silicon dioxide, hydroxypropyl cellulose, hypromellose, polyethylene glycol, polysorbate 80, talc, and titanium dioxide. Additional Information For general questions, visit the website or call the telephone number provided below. Website: [employer] Telephone number: (7-608-O59-PACK) Distributed by [facility] Division of [place] [address] [id number] Revised: 07/2022 documented in this encounter [facility] 09-18-2022 Miscellaneous Notes Patient notified of results, verbalizes understanding of instructions. Nargis Reynaga LPN Can you please call the patient and let her know that I reviewed her RUQ US. No gallstones noted. Some fatty liver was noted. This happens when fat builds up in the liver. While it is usually not problematic; it can cause cirrhosis (or scarring of the liver) -- which can be problematic. Measures to prevent this include: 1. Weight loss 2. Good control of diabetes 3. Good control of cholesterol. Continue supportive care at home. Stay well hydrated. Any worsening symptoms go to ER. Aileen Quintanilla APRN.FIDEL documented in this encounter [facility] 09-18-2022 History of Present illness Narrative Radiology Service Progress Note PATIENT NAME: Camila Harmon DATE OF SERVICE: September 18, 2022 TIME: 9:35 AM PATIENT IDENTITY VERIFICATION COMPLETED USING TWO (2) IDENTIFIERS: Name and Date of confirmed by patient verbally. FALL SCREENING: Has the patient had 2 falls in the last year or 1 fall with injury or currently using an Ambulatory Assistive Device (Walker, Cane, Wheelchair, Crutches, etc.)? No PATIENT GENDER DATA: Female. status: : No status: NO. PATIENT RELEVANT IMPLANT DATA REVIEWED: Not Applicable RADIOLOGY DEPARTMENT: Ultrasound PERIPHERAL IV DATA: Not applicable SIGNED BY: Karen Mendoza RDMS RVT September 18, 2022 9:35 AM documented in this encounter [facility] 09-17-2022 Miscellaneous Notes Addended by: AILEEN QUINTANILLA on: 09/17/2022 09:35 AM Modules accepted: Orders Stat RUQ US placed. Thank you. Aileen Quintanilla APRN.CNP Pt notified and voiced understanding. Transferred to PSS to set up US. Kaleigh Dudley Ma Can you please call the patient and let her know that I reviewed her lab results. Lipase was elevated, I have possible concern that she may be experiencing pancreatitis. I would recommend getting a right upper quadrant ultrasound for further evaluation. I want her to continue supportive care at home. Stay well-hydrated, continue to use nausea medication as needed. Any worsening symptoms to go to the ER. Please let me know what she prefers. Thank you. Aileen Quintanilla APRN.CNP documented in this encounter [facility] 08-25-2022 History of Present illness Narrative Chief Complaint Patient presents with: F/U 3 Month HPI Camila Harmon is a 61 year old female who presents here today for a 3 month follow up. Pt here today for her routine follow up. Here today with her spouse. GI - Pt due for repeat 5 year Colonoscopy. Pt states that she has ongoing issues with nausea and feeling like she wants to throw up. Unsure if this ulcer related or anxiety related. Denies any bowel issues. GERD: Currently taking Nexium 20 mg daily. Sometimes feels she still has issues with indigestion. Feels nauseas, like she wants to vomit. At times will have just water come up. HTN: Does not check BP at home. Reports intermittent chest pain, sob and dizziness. Had heart cath, was normal, no issues. Has been following with Cardio Dr. Nash for chest pains. Is taking Lisinopril 10 mg BID and Atenolol 100 mg daily. KORY/Depression: Taking Paxil 40 mg 1 tablet daily, Hydoxyzine 25 mg 1 tab po every 6 hrs prn, Buspar 15 mg 1 tab po TID prn and Ativan 0.5 mg, 2 pills BID. Following with [facility] once a month, which she likes better. Has been having increased anxiety and depression due to the passing of her daughter in February who struggled from drug abuse issues. Pt states that she has her moments, tries to not cry. DM: Denies checking sugars at home, knows she needs to do this. Denies any hypoglycemic episodes or neuropathy symptoms. Has seen Pharmacy in the past, but not for quite some time. Knows she needs to control her eating, hasn't been doing real well, eating what's easy at this time. Is on Metformin 500 mg BID, Trulicity 1.5 mg weekly, and Amaryl 4 mg BID. Denies follows with Podiatry, needs DM foot exam. Has Eye exam done through Dr. Kevin. Lipid: Denies any regular exercise, but works. States she's not been hungry, so feels she's watching her diet. Taking Lipitor 40 mg daily, tolerates well. Vertigo: stable, uses Meclizine prn. HM - Will receive Covid vaccine through the Pharmacy. Received both Shingles vaccines. Mammogram ordered on 08/12/22. Discussed Pneumonia, will think about, receives through Pharmacy. Past medical history, appointments, medications, allergies reviewed. Previous Medical History PAST MEDICAL HISTORY Diagnosis Date Coronary artery disease Depressive disorder, not elsewhere classified Enlarged liver Excessive or frequent menstruation 07/06/2004 s/p TVH Migraine with aura, without mention of intractable migraine without mention of status migrainosus Other anxiety states Pure hypercholesterolemia S/P primary angioplasty with coronary stent 11/06/2008 Type II or unspecified type diabetes mellitus without mention of complication, not stated as uncontrolled Previous Surgical History PAST SURGICAL HISTORY Procedure Laterality Date CARPAL TUNNEL Bilateral 03/05/2017 COLONOSCOPY FLX DX W/COLLJ SPEC WHEN PFRMD 07/19/2013 Colonoscopy EXTRACTION, ERUPTED TOOTH OR EXPOSED ROOT (ELEVATION AND/OR FORCEPS REMOVAL) wisdom teeth HEART CATHETERIZATION N/A 02/11/2022 HYSTERECTOMY HX PAST SURGICAL HISTORY OF 02/22/2002 BREAST REDUCTION PAST SURGICAL HISTORY OF 2008, 2011 stent, LAD X2. VAGINAL HYSTERECTOMY UTERUS 250 GM/< 07/2004 Hysterectomy, vaginal Family History FAMILY HISTORY Problem Relation Age of Onset Hypertension Mother Diabetes Mother Heart Mother [place], age 72; first dx age late 60's Lipids Mother Stroke Mother Blindness Mother Hypertension Father Lipids Father Diabetes Father Patient Allergies ALLERGIES Allergen Reactions Penicillins Hives Percocet [Oxycodone* GI Upset Tylenol-Codeine Prerna* Other: See Comments halucinations Current Medications Current Outpatient Medications on File Prior to Visit Medication Sig LORazepam (ATIVAN) 0.5 mg Take 2 tablets by mouth twice daily for 90 days. metFORMIN (GLUCOPHAGE) 500 mg tablet Take 1 tablet by mouth twice daily with meals. PARoxetine (PAXIL) 40 mg tablet Take 1 tablet by mouth once daily. dulaglutide (TRULICITY) 3 mg/0.5 mL pen injector Inject 3 mg subcutaneously one time a week. hydrOXYzine HCl (ATARAX) 25 mg tablet Take 1 tablet by mouth every 6 hours as needed for anxiety. magnesium oxide (MAG-OX) 400 mg (241.3 mg magnesium) tablet Take 1 tablet by mouth twice daily. busPIRone (BUSPAR) 15 mg tablet Take 1 tablet by mouth three times daily. esomeprazole (NEXIUM) 20 mg capsule Take 20 mg by mouth once daily. lisinopril (ZESTRIL, PRINIVIL) 20 mg tablet Take 1 tablet by mouth twice daily. atorvastatin (LIPITOR) 80 mg tablet Take 1 tablet by mouth daily at bedtime for cholesterol. atenolol (TENORMIN) 100 mg tablet Take 1 tablet by mouth once daily. glimepiride (AMARYL) 4 mg tablet Take 1 tablet by mouth twice daily with meals. Blood-Glucose Meter Test blood sugar(s) 1 times daily. Dx: Type 2 DM - Uncontrolled E11.65 Insulin: No Lancets lancets Test blood sugar(s) 1 times daily. Dx: Type 2 DM - Uncontrolled E11.65 Insulin: No blood sugar diagnostic (BLOOD GLUCOSE TEST) test strip Test blood sugar(s) 1 times daily. Dx: Type 2 DM - Uncontrolled Insulin: No nitroglycerin sublingual (NITROQUICK) 0.4 mg SL tablet Dissolve 1 tablet under the tongue as needed. FOR CHEST PAIN. IF NO RELIEF CALL 911 albuterol HFA (PROVENTIL HFA, VENTOLIN HFA) 90 mcg/actuation inhaler Inhale 2 Puffs as instructed every 4 hours as needed for wheezing/shortness of breath. meclizine (ANTIVERT) 25 mg tab Take 1 tablet by mouth three times daily as needed. promethazine (PHENERGAN) 25 mg tablet Take 1 tablet by mouth every 6 hours as needed for nausea/vomiting. blood sugar diagnostic (BLOOD GLUCOSE TEST) test strip Test blood sugar(s) 1 times daily. Dx: Type 2 DM - Uncontrolled Insulin: No diclofenac (VOLTAREN) 1 % topical gel Apply 2 g to affected area four times daily. amLODIPine (NORVASC) 5 mg tablet Take 1 tablet by mouth once daily. Lancets lancets Test blood sugar(s) 1 times daily. Dx: E11.65. Insulin: No aspirin 81 mg chewable tablet Take 81 mg by mouth once daily. Blood-Glucose Meter monitoring kit Glucose Meter of Choice - Kit - Dx: Type 2 DM - Uncontrolled multivitamins(DAILY MULTIVITAMIN TAB) Take one(1) tablet daily. No current facility-administered medications on file prior to visit. Social History Social History Tobacco Use Smoking status: Former Years: 3.00 Types: Cigarettes Quit date: 06/02/2020 Years since quittin.2 Smokeless tobacco: Never Tobacco comments: social smoking for 3 years. Occasional smoking when upset Vaping Use Vaping Use: Never used Substance Use Topics Alcohol use: Not Currently Comment: Seldom Drug use: No EXAM: BP 132/84 (BP Site: Left Arm, BP Position: Sitting, BP Cuff Size: Regular Adult) Pulse 70 Resp 16 Wt 92.1 kg (203 lb) BMI 37.13 kg/m General Appearance: Well appearing, alert, in no acute distress, well-hydrated, well nourished. and Obese. Lungs: Lungs clear to auscultation. No wheezing, rhonchi, rales.. Heart: RRR without murmur, gallop, or rubs. No ectopy. Feet: Shoes and socks removed, No deformities, ulcers, calluses, normal distal pulses, and sensitive to 10 gm monofilament . Health Maintenance List PNEUMOCOCCAL(1 - PCV) Never done BP CONTROLLED (<130/80) Never done MAMMOGRAM due on 04/15/2018 DTAP,TDAP,TD(2 - Td or Tdap) due on 08/27/2019 COVID-19 VACCINE(4 - Booster for Pfizer series) due on 03/19/2021 COLORECTAL CANCER SCREENING due on 07/06/2021 SHINGRIX VACCINE(2 of 2) due on 08/04/2021 DIABETIC FOOT EXAM due on 04/24/2022 URINE ALBUMIN:CREATININE RATIO due on 04/29/2022 HBA1C due on 08/15/2022 HIV SCREENING due on 02/12/2023 INFLUENZA(Season Ended) due on 11/06/2022 DILATED RETINAL EXAM due on 12/05/2022 LDL CHOLESTEROL due on 05/16/2023 ANNUAL PCP TEAM CHRONIC DISEASE VISIT due on 06/20/2023 HEPATITIS C SCREENING Completed PAP TESTING Discontinued HPV TESTING Discontinued Data reviewed Results Only on 08/24/2022 Component Date Value Hemoglobin A1C 08/24/2022 10.1 (A) Estimated Average Glucose 08/24/2022 243 Protein, Total 08/24/2022 6.8 Albumin 08/24/2022 4.2 Calcium, Total 08/24/2022 9.4 Bilirubin, Total 08/24/2022 1.1 Alkaline Phosphatase 08/24/2022 89 AST 08/24/2022 33 ALT 08/24/2022 49 (A) Glucose 08/24/2022 229 (A) BUN 08/24/2022 16 Creatinine 08/24/2022 0.60 Sodium 08/24/2022 139 Potassium 08/24/2022 4.6 Chloride 08/24/2022 99 CO2 08/24/2022 24 Anion Gap 08/24/2022 16 Estimated Glomerular Thad* 08/24/2022 104 Creatinine, Ur Random (U* 08/24/2022 182.2 Albumin, Urine Random 08/24/2022 43.8 Albumin/Creat Ratio 08/24/2022 24 ASSESSMENT/PLAN: 1. Anxiety - ICD9: 300.00, ICD10: F41.9 (primary diagnosis) - Stable - Continue current medication regimen. - PAROXETINE 40 MG TABLET 2. Moderate episode of recurrent major depressive disorder (HCC) - ICD9: 296.32, ICD10: F33.1 - Stable - Continue current medication regimen. - PAROXETINE 40 MG TABLET 3. Uncontrolled type 2 diabetes mellitus with hyperglycemia (HCC) - ICD9: 250.02, ICD10: E11.65 - Uncontrolled - Continue current medications - Discussed seeing Pharm. - Pt would like to work on diet first. Discussed foods to eat in diet, foods to cut out of diet. 4. Hypertension, essential - ICD9: 401.9, ICD10: I10 - Controlled - Continue current medications - Recommend home blood pressure monitoring, to bring results to next visit - Encouraged sodium restriction, DASH or Mediterranean diet - Recommend regular aerobic exercise - LISINOPRIL 20 MG TABLET 5. Pure hypercholesterolemia - ICD9: 272.0, ICD10: E78.00 - Continue current medication regimen. - Cont watch diet/exercise 6. Hypomagnesemia - ICD9: 275.2, ICD10: E83.42 - Continue current medication regimen. 7. GERD without esophagitis - ICD9: 530.81, ICD10: K21.9 - Continue current medication regimen. 8. Nausea - ICD9: 787.02, ICD10: R11.0 - Consult Gen Surg; may need EGD as well as colonoscopy - Possibly related to food eating, due to increased stress 9. Vertigo - ICD9: 780.4, ICD10: R42 - Rx for Meclizine 10. Ischemic stroke (HCC) - ICD9: 434.91, ICD10: I63.9 - Continue current medication regimen. 11. Screening for colon cancer - ICD9: V76.51, ICD10: Z12.11 - Consult placed, due for 5 year - CONSULT TO GENERAL SURGERY 3 mo f/u with labs. I agree with the Chief Complaint, ROS, and Past Histories independently gathered by the clinical information support project manager and the remaining scribed note accurately describes my personal service to the patient. Medical Decision Making: Problems: Moderate: 1+ chronic illnesses with change and 2+ stable chronic illnesses Data: Unique test result(s) reviewed: 3+ Unique test(s) ordered: 3+ Risk: Moderate: Drug management Medical Decision Making Level: 4 - Moderate Emily Wang MD The documentation for this note was completed by Edith Chavira Ma acting as scribe for Emily Wang MD. August 25, 2022 11:16 AM. Edith Chavira Ma documented in this encounter [facility] 06-25-2022 Miscellaneous Notes OK to refill as ordered Emily Wang MD Patient has been identified by name and date of : Yes, Provider Dr Wang Date 06/25/22 Time 1307. Patient phones for refill(s): Requested Prescriptions Pending Prescriptions Disp Refills LORazepam (ATIVAN) 0.5 mg 120 tablet 2 Sig: Take 2 tablets by mouth twice daily for 90 days. metFORMIN (GLUCOPHAGE) 500 mg tablet 180 tablet 3 Sig: Take 1 tablet by mouth twice daily with meals. Date of last office visit in primary care: 06/19/22 Future visit: 08/25/22 Last 2 Encounter Wt Readings: Date: Wt: 05/12/2022 93.6 kg (206 lb 4.8 oz) 04/14/2022 93.1 kg (205 lb 3.2 oz) Previous labs/tests for medication: Diabetes: Hemoglobin A1C (%) Date Value 05/15/2022 8.3 11/06/2021 7.7 03/10/2021 10.2 07/01/2020 9.8 Blood Pressure: BUN (mg/dL) Date Value 05/15/2022 19 04/20/2021 21 Sodium (mmol/L) Date Value 05/15/2022 139 04/20/2021 137 Last 1 Encounter BP Readings: Date: BP: 06/19/2022 150/80 Liver Function: ALT (U/L) Date Value 05/15/2022 33 04/20/2021 21 AST (U/L) Date Value 05/15/2022 30 04/20/2021 16 Please advise. Thank you. Jen Aldana RN documented in this encounter [facility] 06-19-2022 Instructions Aileen Quintanilla APRN.FIDEL - 06/19/2022 10:16 AM EDT Stop Celexa, Start Paxil 40 mg, may cut pill in half and may increase to the full tablet of 40 mg. Recommend establishing care with counselor, continue with grief share. Schedule follow up with Psychiatry. Stay hydrated and eat a well balanced diet. Follow up in 1 month if needed. documented in this encounter [facility] 06-19-2022 History of Present illness Narrative This is a 61 year old female who presents today with: Patient presents with: Acute Visit: fatique and depression HISTORY OF PRESENT ILLNESS: Camila Harmon is a 61 year old female. Patient presents with: Acute Visit: fatique and depression Following with psychiatry Kate Ayala CNP. Currently taking Celexa 40 mg, 1.5 tablets daily, BuSpar 15 mg 3 times daily, hydroxyzine 25 mg every 6 hours as needed, and Ativan 0.5 mg, 2 pills twice daily. No showed last appointment, patient was not aware she had a follow-up appointment. Per provider note recommended switching SSRI. Seeing counselor, group setting once per month. Tried personal counseling and did not like the environment. Feels like she could sleep all the time. Crying all the time. Daughter passed in February. History of anxiety in the past. Denies any panic attacks at this time or SI/HI. Had 3-month follow-up with PCP last month, A1c was elevated at 8.3, Trulicity was increased to 3 mg once weekly. Following with endocrinology and clinical Pharm for diabetic management. PAST MEDICAL HISTORY: PAST MEDICAL HISTORY Diagnosis Date Coronary artery disease Depressive disorder, not elsewhere classified Enlarged liver Excessive or frequent menstruation 07/06/2004 s/p TVH Migraine with aura, without mention of intractable migraine without mention of status migrainosus Other anxiety states Pure hypercholesterolemia S/P primary angioplasty with coronary stent 11/06/2008 Type II or unspecified type diabetes mellitus without mention of complication, not stated as uncontrolled PAST SURGICAL HISTORY Procedure Laterality Date CARPAL TUNNEL Bilateral 03/05/2017 COLONOSCOPY FLX DX W/COLLJ SPEC WHEN PFRMD 07/19/2013 Colonoscopy EXTRACTION, ERUPTED TOOTH OR EXPOSED ROOT (ELEVATION AND/OR FORCEPS REMOVAL) wisdom teeth HEART CATHETERIZATION N/A 02/11/2022 HYSTERECTOMY HX PAST SURGICAL HISTORY OF 02/22/2002 BREAST REDUCTION PAST SURGICAL HISTORY OF 2008, 2011 stent, LAD X2. VAGINAL HYSTERECTOMY UTERUS 250 GM/< 07/2004 Hysterectomy, vaginal ALLERGIES Penicillins, Percocet [Oxycodone-Acetaminophen], and Tylenol-Codeine Elixir MEDICATIONS Current Outpatient Medications Medication Sig dulaglutide (TRULICITY) 3 mg/0.5 mL pen injector Inject 3 mg subcutaneously one time a week. hydrOXYzine HCl (ATARAX) 25 mg tablet Take 1 tablet by mouth every 6 hours as needed for anxiety. magnesium oxide (MAG-OX) 400 mg (241.3 mg magnesium) tablet Take 1 tablet by mouth twice daily. busPIRone (BUSPAR) 15 mg tablet Take 1 tablet by mouth three times daily. esomeprazole (NEXIUM) 20 mg capsule Take 20 mg by mouth once daily. lisinopril (ZESTRIL, PRINIVIL) 20 mg tablet Take 1 tablet by mouth twice daily. atorvastatin (LIPITOR) 80 mg tablet Take 1 tablet by mouth daily at bedtime for cholesterol. atenolol (TENORMIN) 100 mg tablet Take 1 tablet by mouth once daily. citalopram (CELEXA) 40 mg tablet take 1 & 1/2 tablets once a day glimepiride (AMARYL) 4 mg tablet Take 1 tablet by mouth twice daily with meals. Blood-Glucose Meter Test blood sugar(s) 1 times daily. Dx: Type 2 DM - Uncontrolled E11.65 Insulin: No nitroglycerin sublingual (NITROQUICK) 0.4 mg SL tablet Dissolve 1 tablet under the tongue as needed. FOR CHEST PAIN. IF NO RELIEF CALL 911 albuterol HFA (PROVENTIL HFA, VENTOLIN HFA) 90 mcg/actuation inhaler Inhale 2 Puffs as instructed every 4 hours as needed for wheezing/shortness of breath. meclizine (ANTIVERT) 25 mg tab Take 1 tablet by mouth three times daily as needed. promethazine (PHENERGAN) 25 mg tablet Take 1 tablet by mouth every 6 hours as needed for nausea/vomiting. blood sugar diagnostic (BLOOD GLUCOSE TEST) test strip Test blood sugar(s) 1 times daily. Dx: Type 2 DM - Uncontrolled E11.65 Insulin: No diclofenac (VOLTAREN) 1 % topical gel Apply 2 g to affected area four times daily. amLODIPine (NORVASC) 5 mg tablet Take 1 tablet by mouth once daily. Lancets lancets Test blood sugar(s) 1 times daily. Dx: E11.65. Insulin: No aspirin 81 mg chewable tablet Take 81 mg by mouth once daily. Blood-Glucose Meter monitoring kit Glucose Meter of Choice - Kit - Dx: Type 2 DM - Uncontrolled E11.65 multivitamins(DAILY MULTIVITAMIN TAB) Take one(1) tablet daily. LORazepam (ATIVAN) 0.5 mg Take 2 tablets by mouth twice daily for 90 days. Lancets lancets Test blood sugar(s) 1 times daily. Dx: Type 2 DM - Uncontrolled . Insulin: No blood sugar diagnostic (BLOOD GLUCOSE TEST) test strip Test blood sugar(s) 1 times daily. Dx: Type 2 DM - Uncontrolled . Insulin: No metFORMIN (GLUCOPHAGE) 500 mg tablet Take 1 tablet by mouth twice daily with meals. No current facility-administered medications for this visit. FAMILY HISTORY Problem Relation Age of Onset Hypertension Mother Diabetes Mother Heart Mother [place], age 72; first dx age late 60's Lipids Mother Stroke Mother Blindness Mother Hypertension Father Lipids Father Diabetes Father Social History Tobacco Use Smoking status: Former Years: 3.00 Types: Cigarettes Quit date: 06/02/2020 Years since quittin.0 Smokeless tobacco: Never Tobacco comments: social smoking for 3 years. Occasional smoking when upset Vaping Use Vaping Use: Never used Substance Use Topics Alcohol use: Not Currently Comment: Seldom Drug use: No REVIEW OF SYSTEMS GENERAL: + Fatigue HEENT: Negative for frequent or significant headaches, No changes in hearing or vision. NECK: Negative for lumps, goiter, pain and significant neck swelling RESPIRATORY: Negative for cough, hemoptysis, wheezing, dyspnea or shortness of breath CARDIOVASCULAR: Negative for chest pain, leg swelling, orthopnea, or palpitations GI: No nausea, vomiting, or diarrhea/constipation. No hematochezia/melena. No heartburn or reflux symptoms. : No history of dysuria, frequency or incontinence MUSCULOSKELETAL: Negative for joint pain or swelling. SKIN: Negative for lesions, rash, and itching ENDOCRINE: Negative for cold or heat intolerance, polyuria, polydipsia and goiter NEURO: No history of headaches, syncope, paralysis, seizures or tremors MOOD: + Sadness EXAM: BP 150/80 Pulse (P) 71 Resp (P) 16 Wt (P) 92.5 kg (204 lb) SpO2 (P) 97% BMI (P) 37.31 kg/m PHYSICAL EXAM: General Appearance: Well appearing, alert, in no acute distress, well-hydrated, well nourished. Skin: Skin color, texture, turgor normal, no suspicious rashes or lesions. Head: Normocephalic, no masses, lesions, tenderness or abnormalities. Eyes: Anicteric sclera. Extraocular movements are intact. Lungs: Lungs clear to auscultation. No wheezing, rhonchi, rales. Heart: RRR without murmur, gallop, or rubs. No ectopy. Extremities: No deformities, edema, skin discoloration, clubbing or cyanosis. Good capillary refill. Peripheral Pulses: Normal, Capillary refill <2secs, strong peripheral pulses, Pulses palpable. Neurologic: Gait normal. Sensation grossly intact. Mood: Pleasant, good eye contact, engaged. ASSESSMENT/PLAN: 1. Moderate episode of recurrent major depressive disorder (HCC) - ICD9: 296.32, ICD10: F33.1 (primary diagnosis) - Stop Celexa and Start Paxil 40 mg daily. - Discussed Cutting 40 mg in half (20 mg) then may increase to full tablet. - Recommend follow up with psychiatry - Continue Group Therapy - PAROXETINE 40 MG TABLET 2. Anxiety - ICD9: 300.00, ICD10: F41.9 - Same plan as #1. Follow-up in 1 month or sooner as needed. Discussed treatment plan and patient voices understanding. Patient's questions answered appropriately. Medications and potential side effects were discussed and patient voices understanding. Aileen Quintanilla APRN.FIDEL This note was partially generated using [employer] voice recognition system. Note was reviewed for accuracy. There may be minor misspellings or grammar miscues with [employer] voice recognition. documented in this encounter [facility] 05-19-2022 Miscellaneous Notes Patient returned call and went over results, notes from Bahman Edmonds LOG HANDLER with understanding. Aware rx to pharmacy. Left message to return call Please let the patient know that her labs look good with the exception of her Hgb A1c that increased from 7.7 to 8.3%. I would recommend that we increase her Trulicity to 3 mg weekly and repeat labs in 3 months. I sent a new prescription in. The following approved medication requests have been transmitted electronically. Requested Prescriptions Signed Prescriptions Disp Refills dulaglutide (TRULICITY) 3 mg/0.5 mL pen injector 4 Each 4 Sig: Inject 3 mg subcutaneously one time a week. Authorizing Provider: BAHMAN EDMONDS APRN.SHIPPING ORDER CLERK documented in this encounter [facility] 05-14-2022 Miscellaneous Notes Patient notified of Rx and work excuse., verbalizes understanding of instructions. Pt stated will be picking up letter. Nargis Reynaga LPN Work note done for 05/13 Rx for Zpak sent to pharmacy Emily Wang MD Pt calling to report she was seen yesterday and per pt was told she was starting with an URI. Pt had symptoms congested, sore throat and slight cough. Today she is coughing up yellow thick mucous, diarrhea and vomiting (yellow ). Pt was not able to go into work today and asking for work excuse ( to supervisor opening and picking once it is done) and something be called in for her. Please review and advise. Mary Latif LPN documented in this encounter [facility] 05-12-2022 History of Present illness Narrative Chief Complaint Patient presents with: F/U 3 Month HPI Camila Harmon is a 61 year old female who presents here today for 3 month follow up. No bowel, Gi, or urinary issues. GERD: Doing better since taking Nexium 20 mg daily. Vertigo: uses meclizine prn. Depression/KORY: Saw Adult Psych, Corine Ayala, FIDEL. Current regimen of Celexa 40 mg 1.5 tablets daily, Buspar 15 mg 1 pill TID, Hydroxyzine 25 mg every 6 hours prn, and Ativan 0.5 mg 2 pills BID. Doing counseling. HTN: Denies checking BP at home. Has been following with Cardio Dr. Nash for chest pains. Taking Norvasc 5 mg daily, Atenolol 100 mg daily and Lisinopril 10 mg BID. DM: Checks BS occ at home usually only if she feels the sugars are off or she feels bad. Has some neuropathy sx in feet. No issues with sugars going too low. Taking Amaryl 4 mg BID, Metformin 500 mg BID and Trulicity 1.5 mg weekly. Following with Psychiatric Np, Endo, and Pharmacist to manage diabetes better. Lipid: Does not watch diet or exercise. Taking Aspirin 81 mg daily and Lipitor 40 mg daily. Has been sick with scratchy throat, hot and cold chills, head congestion, cough, coughing up phlegm that started on Wednesday. Has not been treating sx. Denies being around anyone who has been sick. Past medical history, appointments, medications, allergies reviewed. Previous Medical History PAST MEDICAL HISTORY Diagnosis Date Coronary artery disease Depressive disorder, not elsewhere classified Enlarged liver Excessive or frequent menstruation 07/06/2004 s/p TVH Migraine with aura, without mention of intractable migraine without mention of status migrainosus Other anxiety states Pure hypercholesterolemia S/P primary angioplasty with coronary stent 11/06/2008 Type II or unspecified type diabetes mellitus without mention of complication, not stated as uncontrolled Previous Surgical History PAST SURGICAL HISTORY Procedure Laterality Date CARPAL TUNNEL Bilateral 03/05/2017 COLONOSCOPY FLX DX W/COLLJ SPEC WHEN PFRMD 07/19/2013 Colonoscopy EXTRACTION, ERUPTED TOOTH OR EXPOSED ROOT (ELEVATION AND/OR FORCEPS REMOVAL) wisdom teeth HEART CATHETERIZATION N/A 02/11/2022 HYSTERECTOMY HX PAST SURGICAL HISTORY OF 02/22/2002 BREAST REDUCTION PAST SURGICAL HISTORY OF 2008, 2011 stent, LAD X2. VAGINAL HYSTERECTOMY UTERUS 250 GM/< 07/2004 Hysterectomy, vaginal Family History FAMILY HISTORY Problem Relation Age of Onset Hypertension Mother Diabetes Mother Heart Mother [place], age 72; first dx age late 60's Lipids Mother Stroke Mother Blindness Mother Hypertension Father Lipids Father Diabetes Father Patient Allergies ALLERGIES Allergen Reactions Penicillins Hives Percocet [Oxycodone* GI Upset Tylenol-Codeine Prerna* Other: See Comments halucinations Current Medications Current Outpatient Medications on File Prior to Visit Medication Sig LORazepam (ATIVAN) 0.5 mg Take 2 tablets by mouth twice daily for 90 days. hydrOXYzine HCl (ATARAX) 25 mg tablet Take 1 tablet by mouth every 6 hours as needed for anxiety. magnesium oxide (MAG-OX) 400 mg (241.3 mg magnesium) tablet Take 1 tablet by mouth twice daily. busPIRone (BUSPAR) 15 mg tablet Take 1 tablet by mouth three times daily. esomeprazole (NEXIUM) 20 mg capsule Take 20 mg by mouth once daily. lisinopril (ZESTRIL, PRINIVIL) 20 mg tablet Take 1 tablet by mouth twice daily. atorvastatin (LIPITOR) 80 mg tablet Take 1 tablet by mouth daily at bedtime for cholesterol. dulaglutide (TRULICITY) 1.5 mg/0.5 mL pen injector Inject 1.5 mg subcutaneously one time a week. atenolol (TENORMIN) 100 mg tablet Take 1 tablet by mouth once daily. citalopram (CELEXA) 40 mg tablet take 1 & 1/2 tablets once a day glimepiride (AMARYL) 4 mg tablet Take 1 tablet by mouth twice daily with meals. Blood-Glucose Meter Test blood sugar(s) 1 times daily. Dx: Type 2 DM - Uncontrolled E11.65 Insulin: No (Patient not taking: Reported on 04/14/2022) Lancets lancets Test blood sugar(s) 1 times daily. Dx: Type 2 DM - Uncontrolled E11.65 Insulin: No (Patient not taking: Reported on 04/14/2022) blood sugar diagnostic (BLOOD GLUCOSE TEST) test strip Test blood sugar(s) 1 times daily. Dx: Type 2 DM - Uncontrolled E11.65 Insulin: No (Patient not taking: Reported on 04/14/2022) metFORMIN (GLUCOPHAGE) 500 mg tablet Take 1 tablet by mouth twice daily with meals. nitroglycerin sublingual (NITROQUICK) 0.4 mg SL tablet Dissolve 1 tablet under the tongue as needed. FOR CHEST PAIN. IF NO RELIEF CALL 911 albuterol HFA (PROVENTIL HFA, VENTOLIN HFA) 90 mcg/actuation inhaler Inhale 2 Puffs as instructed every 4 hours as needed for wheezing/shortness of breath. meclizine (ANTIVERT) 25 mg tab Take 1 tablet by mouth three times daily as needed. promethazine (PHENERGAN) 25 mg tablet Take 1 tablet by mouth every 6 hours as needed for nausea/vomiting. blood sugar diagnostic (BLOOD GLUCOSE TEST) test strip Test blood sugar(s) 1 times daily. Dx: Type 2 DM - Uncontrolled E11.65 Insulin: No (Patient not taking: Reported on 04/14/2022) diclofenac (VOLTAREN) 1 % topical gel Apply 2 g to affected area four times daily. amLODIPine (NORVASC) 5 mg tablet Take 1 tablet by mouth once daily. Lancets lancets Test blood sugar(s) 1 times daily. Dx: E11.65. Insulin: No (Patient not taking: Reported on 04/14/2022) aspirin 81 mg chewable tablet Take 81 mg by mouth once daily. Blood-Glucose Meter monitoring kit Glucose Meter of Choice - Kit - Dx: Type 2 DM - Uncontrolled E11.65 (Patient not taking: Reported on 04/14/2022) multivitamins(DAILY MULTIVITAMIN TAB) Take one(1) tablet daily. No current facility-administered medications on file prior to visit. Social History Social History Tobacco Use Smoking status: Former Years: 3.00 Types: Cigarettes Quit date: 06/02/2020 Years since quittin.9 Smokeless tobacco: Never Tobacco comments: social smoking for 3 years. Occasional smoking when upset Vaping Use Vaping Use: Never used Substance Use Topics Alcohol use: Not Currently Comment: Seldom Drug use: No EXAM: BP 140/88 Pulse 78 Resp 16 Wt 93.6 kg (206 lb 4.8 oz) BMI 37.73 kg/m General Appearance: Well appearing, alert, in no acute distress, well-hydrated, well nourished. and Obese. Neck: Supple, no adenopathy; thyroid symmetric, normal size, no bruits. Lungs: Lungs clear to auscultation. No wheezing, rhonchi, rales.. Heart: RRR without murmur, gallop, or rubs. No ectopy. Health Maintenance List PNEUMOCOCCAL(1 - PCV) Never done BP CONTROLLED (<130/80) Never done MAMMOGRAM due on 04/15/2018 DTAP,TDAP,TD(2 - Td or Tdap) due on 08/27/2019 COVID-19 VACCINE(4 - Booster for Pfizer series) due on 03/19/2021 COLORECTAL CANCER SCREENING due on 07/06/2021 SHINGRIX VACCINE(2 of 2) due on 08/04/2021 INFLUENZA(1) due on 11/06/2021 DIABETIC FOOT EXAM due on 04/24/2022 URINE ALBUMIN:CREATININE RATIO due on 04/29/2022 HIV SCREENING due on 02/12/2023 HBA1C due on 05/06/2022 LDL CHOLESTEROL due on 11/06/2022 DILATED RETINAL EXAM due on 12/05/2022 ANNUAL PCP TEAM CHRONIC DISEASE VISIT due on 03/10/2023 HEPATITIS C SCREENING Completed PAP TESTING Discontinued HPV TESTING Discontinued Data reviewed None ASSESSMENT/PLAN: 1. Diabetes mellitus, non-insulin dependent (NIDDM or type II) (HCC) - ICD9: 250.00, ICD10: E11.9 (primary diagnosis) Get labs done this week 2. Hypertension, essential - ICD9: 401.9, ICD10: I10 - fair control - Continue current medication(s) - Discussed need and benefit for weight loss. - Goal of BP <140/90 3. Anxiety - ICD9: 300.00, ICD10: F41.9 Continue current medications. 4. Moderate episode of recurrent major depressive disorder (HCC) - ICD9: 296.32, ICD10: F33.1 Continue current medications. 5. Atherosclerosis of [place] coronary artery of [place] heart without angina pectoris - ICD9: 414.01, ICD10: I25.10 6. URI, acute - ICD9: 465.9, ICD10: J06.9 - Discussed viral etiology and rationale for treatment. - Symptomatic treatment with prn analgesia - Supportive care with fluids and rest - Call if not improving Follow up in 3 months; notify of lab results Medical Decision Making: Problems: Moderate: 2+ stable chronic illnesses Risk: Moderate: Drug management Medical Decision Making Level: 4 - Moderate Emily Wang MD documented in this encounter [facility] 04-14-2022 Instructions Abelardo Nash DO - 04/14/2022 11:13 AM EST You are doing very well and I was pleased with the heart cath results showing the arteries and stents with only mild to moderate narrowing but nothing that should be causing chest pain It is important to keep these good results but doing the right thing including exercise. I will follow up with you in the next 5 months or if anything changes. My sympathy and prayers go out to you and your family for your loss. documented in this encounter [facility] 04-14-2022 History of Present illness Narrative Images from the original note were not included. [facility] Department of Cardiovascular Medicine SECTION OF CLINICAL CARDIOLOGY OUTPATIENT VISIT DATE 04/14/22 OUTPATIENT VISIT TYPE ESTABLISHED PRIMARY CARE PHYSICIAN: Emily Wang [address] [place] [address] CHIEF COMPLAINT: Chest pain HISTORY OF PRESENT ILLNESS: Ms. Harmon is a 61 year old female with past medical history of HTN, HLD, family history premature CAD, CAD s/p PCI in 2010 and 2008, untreated FLOR, diabetes mellitus type 2, and obesity who presents today for a cardiovascular medicine follow-up visit. She was last seen by me in the office on 12/25/21 following an ED visit for 3 weeks of intermittent chest pain and shortness of breath with normal troponin. She had been lost to follow-up for about 3 years prior to this office visit. At the time of her visit her blood pressure was noted to be uncontrolled and her lisinopril was increased to 20 mg twice daily. Her cholesterol was also noted to be under suboptimal control for which her atorvastatin was increased to 80 mg. She was encouraged to start exercising regularly. Plan was for repeat nuclear stress testing with follow-up in 3 months time. She underwent exercise MPI stress on 01/23/22 and was only able to reach 55% predicted heart rate thus was converted to pharmacological which demonstrated mild (<10%) ischemia in the LAD and RCA territory with gated LVEF of 73%. WE sent her to [facility] with Dr. Fernandez on 02/11/22 which showed all her stents to be patent with a 50-60% ISR of the ostial diagonal stent. She has since lost her daughter in February 2022 and has been depressed. Since her last office visit she has started taking a PPI and has noted some improvement in her chest discomfort She is not participating in any daily aerobic exercise. She is not regularly monitoring her blood pressure at home. She denies any lightheadedness, dizziness, presyncope, syncope, or lower extremity edema. Subjective PAST MEDICAL HISTORY Diagnosis Date Coronary artery disease Depressive disorder, not elsewhere classified Enlarged liver Excessive or frequent menstruation 07/06/2004 s/p TVH Migraine with aura, without mention of intractable migraine without mention of status migrainosus Other anxiety states Pure hypercholesterolemia S/P primary angioplasty with coronary stent 11/06/2008 Type II or unspecified type diabetes mellitus without mention of complication, not stated as uncontrolled PAST SURGICAL HISTORY Procedure Laterality Date CARPAL TUNNEL Bilateral 03/05/2017 COLONOSCOPY FLX DX W/COLLJ SPEC WHEN PFRMD 07/19/2013 Colonoscopy EXTRACTION, ERUPTED TOOTH OR EXPOSED ROOT (ELEVATION AND/OR FORCEPS REMOVAL) wisdom teeth HEART CATHETERIZATION N/A 02/11/2022 HYSTERECTOMY HX PAST SURGICAL HISTORY OF 02/22/2002 BREAST REDUCTION PAST SURGICAL HISTORY OF 2008, 2011 stent, LAD X2. VAGINAL HYSTERECTOMY UTERUS 250 GM/< 07/2004 Hysterectomy, vaginal Social History Tobacco Use Smoking status: Former Years: 3.00 Types: Cigarettes Quit date: 06/02/2020 Years since quittin.8 Smokeless tobacco: Never Tobacco comments: social smoking for 3 years. Occasional smoking when upset Vaping Use Vaping Use: Never used Substance Use Topics Alcohol use: Not Currently Comment: Seldom Drug use: No FAMILY HISTORY Problem Relation Age of Onset Hypertension Mother Diabetes Mother Heart Mother [place], age 72; first dx age late 60's Lipids Mother Stroke Mother Blindness Mother Hypertension Father Lipids Father Diabetes Father ALLERGIES: ALLERGIES Allergen Reactions Penicillins Hives Percocet [Oxycodone* GI Upset Tylenol-Codeine Prerna* Other: See Comments halucinations MEDICATIONS: LORazepam (ATIVAN) 0.5 mg Take 2 tablets by mouth twice daily for 90 days. hydrOXYzine HCl (ATARAX) 25 mg tablet Take 1 tablet by mouth every 6 hours as needed for anxiety. magnesium oxide (MAG-OX) 400 mg (241.3 mg magnesium) tablet Take 1 tablet by mouth twice daily. busPIRone (BUSPAR) 15 mg tablet Take 1 tablet by mouth three times daily. esomeprazole (NEXIUM) 20 mg capsule Take 20 mg by mouth once daily. lisinopril (ZESTRIL, PRINIVIL) 20 mg tablet Take 1 tablet by mouth twice daily. atorvastatin (LIPITOR) 80 mg tablet Take 1 tablet by mouth daily at bedtime for cholesterol. dulaglutide (TRULICITY) 1.5 mg/0.5 mL pen injector Inject 1.5 mg subcutaneously one time a week. atenolol (TENORMIN) 100 mg tablet Take 1 tablet by mouth once daily. citalopram (CELEXA) 40 mg tablet take 1 & 1/2 tablets once a day glimepiride (AMARYL) 4 mg tablet Take 1 tablet by mouth twice daily with meals. metFORMIN (GLUCOPHAGE) 500 mg tablet Take 1 tablet by mouth twice daily with meals. nitroglycerin sublingual (NITROQUICK) 0.4 mg SL tablet Dissolve 1 tablet under the tongue as needed. FOR CHEST PAIN. IF NO RELIEF CALL 911 albuterol HFA (PROVENTIL HFA, VENTOLIN HFA) 90 mcg/actuation inhaler Inhale 2 Puffs as instructed every 4 hours as needed for wheezing/shortness of breath. meclizine (ANTIVERT) 25 mg tab Take 1 tablet by mouth three times daily as needed. promethazine (PHENERGAN) 25 mg tablet Take 1 tablet by mouth every 6 hours as needed for nausea/vomiting. diclofenac (VOLTAREN) 1 % topical gel Apply 2 g to affected area four times daily. amLODIPine (NORVASC) 5 mg tablet Take 1 tablet by mouth once daily. aspirin 81 mg chewable tablet Take 81 mg by mouth once daily. multivitamins(DAILY MULTIVITAMIN TAB) Take one(1) tablet daily. Blood-Glucose Meter Test blood sugar(s) 1 times daily. Dx: Type 2 DM - Uncontrolled 65 Insulin: No (Patient not taking: Reported on 04/14/2022) Lancets lancets Test blood sugar(s) 1 times daily. Dx: Type 2 DM - Uncontrolled . Insulin: No (Patient not taking: Reported on 04/14/2022) blood sugar diagnostic (BLOOD GLUCOSE TEST) test strip Test blood sugar(s) 1 times daily. Dx: Type 2 DM - Uncontrolled . Insulin: No (Patient not taking: Reported on 04/14/2022) blood sugar diagnostic (BLOOD GLUCOSE TEST) test strip Test blood sugar(s) 1 times daily. Dx: Type 2 DM - Uncontrolled . Insulin: No (Patient not taking: Reported on 04/14/2022) Lancets lancets Test blood sugar(s) 1 times daily. Dx: E11.. Insulin: No (Patient not taking: Reported on 04/14/2022) Blood-Glucose Meter monitoring kit Glucose Meter of Choice - Kit - Dx: Type 2 DM - Uncontrolled (Patient not taking: Reported on 04/14/2022) REVIEW OF SYSTEMS: CARD: See HPI GENERAL: Negative for: Weight loss or gain, Fever and/or Chills +Fatigue HEENT: Negative for: Headache, Impaired Vision, Glasses, Hearing Impairment, Ringing in Ears, Nosebleeds, Bleeding Gums NECK: Negative for: Swelling, Pain, Stiffness RESPIRATORY: Negative for: Cough, Blood in Sputum, Wheezing, Apnea +CRUZ GASTROINTESTINAL: Negative for: Nausea, Vomiting, Diarrhea, Blood in stool, or Dark black stools MUSCULOSKELETAL: Negative for: Muscle or joint pain, Stiffness , Joint swelling NEUROLOGIC/PSYCH: Negative for: focal numbness/weakness, headaches, visual changes, ataxia, speech/language loss +Anxiety SKIN: Negative for: Rashes, Itching HEMATOLOGICAL/LYMPHATIC: Negative for: Easy bruising , Easy bleeding ENDOCRINE: Negative for: Heat or cold intolerance, Excessive sweating, Frequent urination, Frequent thirst Objective PHYSICAL EXAMINATION: BP 132/62 Pulse (!) 56 Ht 157.5 cm (5' 2) Wt 93.1 kg (205 lb 3.2 oz) SpO2 96% BMI 37.53 kg/m General: Well appearing, in no acute distress. Neck: No jugular venous distention, no carotid bruits, carotids have a normal upstroke. Lungs: Clear to auscultation bilaterally, no wheezing or rhonchi. Heart: Regular rhythm, S1, S2 normal, no S3, no S4, no heaves, no rub and no murmur. No peripheral edema . Grade 2/4 distal pulses bilaterally. Abdomen: Soft, nontender, bowel sounds normal, no bruits. Neuro: Oriented to person, place and time, alert, cooperative, gait coordinated. CARDIOVASCULAR MEDICINE TESTING: [facility] 02/15/22:GAYATHRI Fernandez Coronary Anatomy: Right Dominant Injection Site(s): Coronary Artery LMT: _ The LMT is normal. Additional Comment: Normal, short artery. The LAD and left circumflex nearly arise from separate ostia. LAD: _ The proximal LAD is narrowed 40 % - ISR. _ The 1st diagonal is narrowed 60 % - ISR. Additional Comment: Small to moderate caliber vessel. There is a patent stent in the proximal to mid vessel with mild diffuse in-stent restenosis (30-40%). There is a moderate caliber first diagonal branch. There is bifurcation stenting from the proximal to mid LAD into the first diagonal branch. The ostium of the diagonal branch has a 50-60% in-stent restenosis with otherwise mild diffuse disease. The mid mid distal and distal LAD have mild diffuse disease. LCX: _ The Circumflex has mild diffuse disease. RAMUS: _ Ramus Status: Not Applicable. RCA: _ The RCA has mild diffuse disease. Additional Comment: Moderate caliber dominant vessel with mild diffuse disease. Impression: Patent stents in the proximal to mid LAD with mild in-stent restenosis. Bifurcation stenting into the first large diagonal branch with an ostial 50-60% in-stent restenosis. Otherwise mild diffuse disease. Normal LVEDP Recommended Treatment: Medical Therapy. Plan: Continue medical therapy and risk factor modification Last ECHO Result Conclusion ECHO Collected: 04/18/2021 2:23 PM (Final result) Impression: CONCLUSIONS: - Exam indication: Stroke - The left ventricle is normal in size. Left ventricular systolic function is normal. EF = 63 5% (2D biplane) Definity contrast used for endocardial border detection. Grade I left ventricular diastolic dysfunction. - The right ventricle is normal in size. Right ventricular systolic function is low normal. - -Mild to moderate 1-2+ TR. - There is no patent foramen ovale as detected by saline contrast with valsalva. - Bubble study appears to be negative although image quality is suboptimal. - There is mild pulmonic insufficiency present. - Exam was compared with the prior echocardiographic exam performed on 03/19/20. The degree of pulmonic and tricuspid insufficiency has increased slightly. * * * Final * * * Last EKG Result Conclusion ECG COMPLETE Collected: 04/14/2022 10:26 AM (Preliminary result) Impression: SINUS BRADYCARDIA OTHERWISE NORMAL ECG Pharm MPI Stress 01/23/2022: 1. SPECT Perfusion Study: Abnormal. 2. No evidence of scarred myocardium. 3. There is mild (<10%) ischemia in the territory of the LAD. 4. There is mild (<10%) ischemia in the territory of the RCA. 5. Right ventricle is normal in size. 6. This is an intermediate risk scan. Gated Stress IR:3D LVEF % 73 I have personally reviewed the Stress Test: Nuclear (Non-PET). PLAN AND RECOMMENDATIONS: Chest Pain - Not likely cardiac with C 02/11/22 showing mild to mod stenosis only - Etiology unclear with possible GI component / improvement with PPI - Nuclear stress test 01/23/22 with mild (<10%) ischemia in the LAD and RCA territory possibly false positive Coronary artery disease - S/P PCI with stent to prox-diag (2008) at [facility] - S/P PCI with stent to LAD (2010) at [facility] - Symptom at time of stents was panic attacks which did not resolve much after PCI - Suboptimal treatment of lipids, HTN, DM and exercise - Lisinopril and statin increased 12/25 - Continue ASA, Statin and BB as currently ordered - Nuclear stress test 01/23 with mild (<10%) ischemia in the LAD and RCA territory Mixed hyperlipidemia - Currently on Atorvastatin 80 mg daily (Increased 12/25) - Last lipid panel 11/2021 with total cholesterol 269, triglycerides 343, and LDL 160 - Normal LFTs 11/2021 Essential hypertension - Optimal control on atenolol, lisinopril, an amlodipine - Encouraged dietary sodium restriction/DASH diet - Reviewed risks of HTN and principles of treatment - Goal of BP <130/80 - Home BP log Diabetes mellitus type 2 - Suboptimal control - Most recent A1c 7.7 (8, 10.2) - Heart healthy diabetic diet - Exercise - Weight loss Untreated FLOR - Untreated with some tollerance issues to CPAP - Exercise - Weight loss - Sleep medicine consult placed at prior OV CONCLUSION: She is doing well from a cardiac standpoint and overall I was pleased with her left heart catheterization in February 2022 showing mild to moderate stenosis. Her stents were all patent and had only 50 to 60% in-stent restenosis of ostial diagonal branch. There were no significant stenosis lesions to suggest a cause for her chest pain and therefore would favor this being more GI this time. She should otherwise continue aggressive risk factor modification and routine follow-up. She has lost her daughter in February and continues with depression. We did review this and also went over some benefits of exercise for this and her heart. Thank you for allowing me the privilege of participating in the care of your patient. Please do not hesitate to contact me if there are any questions. Abelardo Nash DO, FACC, FCCP, FACOI This note was partially generated using [employer] voice recognition system and may contain errors related to that system including grammar, punctuation, spelling, and words that may be inappropriate documented in this encounter [facility] 03-10-2022 Instructions Aileen Quintanilla APRN.CNP - 03/10/2022 9:09 AM EST Continue taking medication as prescribed. Ativan refill, start back on today. Recommend establish care with counselor or consider [facility] therapy [facility]. Follow up in 1 month or sooner as needed. Office will reach out psychiatry for recommendations. documented in this encounter [facility] 03-10-2022 History of Present illness Narrative This is a 61 year old female who presents today with: Patient presents with: Acute Visit: Depression HISTORY OF PRESENT ILLNESS: Camila Harmon is a 61 year old female. Patient presents with: Acute Visit: Depression Here in office for increased sadness. History of anxiety, taking Celexa 40 mg, 1.5 tablets daily, BuSpar 15 mg 3 times daily, hydroxyzine 25-50 mg as needed, and Ativan 0.5 mg, 2 tablets twice daily. Daughter just from drug abuse. increased sadness. Difficulty sleeping at times. She will begin to over think. Currently not seeing counselor. Anxiety is normally well controlled but refers she has been out of her Ativan for almost a week. Pharmacy said there is no refills. Denies any SI/HI. She has tried Wellbutrin in the past but refers that it made her angry. She is tearful at this visit. is present for this appointment. PAST MEDICAL HISTORY: PAST MEDICAL HISTORY Diagnosis Date Coronary artery disease Depressive disorder, not elsewhere classified Enlarged liver Excessive or frequent menstruation 07/06/2004 s/p TVH Migraine with aura, without mention of intractable migraine without mention of status migrainosus Other anxiety states Pure hypercholesterolemia S/P primary angioplasty with coronary stent 11/06/2008 Type II or unspecified type diabetes mellitus without mention of complication, not stated as uncontrolled PAST SURGICAL HISTORY Procedure Laterality Date CARPAL TUNNEL Bilateral 03/05/2017 COLONOSCOPY FLX DX W/COLLJ SPEC WHEN PFRMD 07/19/2013 Colonoscopy EXTRACTION, ERUPTED TOOTH OR EXPOSED ROOT (ELEVATION AND/OR FORCEPS REMOVAL) wisdom teeth HEART CATHETERIZATION N/A 02/11/2022 HYSTERECTOMY HX PAST SURGICAL HISTORY OF 02/22/2002 BREAST REDUCTION PAST SURGICAL HISTORY OF 2008, 2011 stent, LAD X2. VAGINAL HYSTERECTOMY UTERUS 250 GM/< 07/2004 Hysterectomy, vaginal ALLERGIES Penicillins, Percocet [Oxycodone-Acetaminophen], and Tylenol-Codeine Elixir MEDICATIONS Current Outpatient Medications Medication Sig hydrOXYzine HCl (ATARAX) 25 mg tablet Take 1 tablet by mouth every 6 hours as needed for anxiety. magnesium oxide (MAG-OX) 400 mg (241.3 mg magnesium) tablet Take 1 tablet by mouth twice daily. busPIRone (BUSPAR) 15 mg tablet Take 1 tablet by mouth three times daily. esomeprazole (NEXIUM) 20 mg capsule Take 20 mg by mouth once daily. lisinopril (ZESTRIL, PRINIVIL) 20 mg tablet Take 1 tablet by mouth twice daily. atorvastatin (LIPITOR) 80 mg tablet Take 1 tablet by mouth daily at bedtime for cholesterol. dulaglutide (TRULICITY) 1.5 mg/0.5 mL pen injector Inject 1.5 mg subcutaneously one time a week. atenolol (TENORMIN) 100 mg tablet Take 1 tablet by mouth once daily. citalopram (CELEXA) 40 mg tablet take 1 & 1/2 tablets once a day glimepiride (AMARYL) 4 mg tablet Take 1 tablet by mouth twice daily with meals. LORazepam (ATIVAN) 0.5 mg Take 2 tablets by mouth twice daily for 90 days. Blood-Glucose Meter Test blood sugar(s) 1 times daily. Dx: Type 2 DM - Uncontrolled Insulin: No Lancets lancets Test blood sugar(s) 1 times daily. Dx: Type 2 DM - Uncontrolled Insulin: No blood sugar diagnostic (BLOOD GLUCOSE TEST) test strip Test blood sugar(s) 1 times daily. Dx: Type 2 DM - Uncontrolled Insulin: No metFORMIN (GLUCOPHAGE) 500 mg tablet Take 1 tablet by mouth twice daily with meals. nitroglycerin sublingual (NITROQUICK) 0.4 mg SL tablet Dissolve 1 tablet under the tongue as needed. FOR CHEST PAIN. IF NO RELIEF CALL 911 albuterol HFA (PROVENTIL HFA, VENTOLIN HFA) 90 mcg/actuation inhaler Inhale 2 Puffs as instructed every 4 hours as needed for wheezing/shortness of breath. meclizine (ANTIVERT) 25 mg tab Take 1 tablet by mouth three times daily as needed. promethazine (PHENERGAN) 25 mg tablet Take 1 tablet by mouth every 6 hours as needed for nausea/vomiting. blood sugar diagnostic (BLOOD GLUCOSE TEST) test strip Test blood sugar(s) 1 times daily. Dx: Type 2 DM - Uncontrolled Insulin: No diclofenac (VOLTAREN) 1 % topical gel Apply 2 g to affected area four times daily. amLODIPine (NORVASC) 5 mg tablet Take 1 tablet by mouth once daily. Lancets lancets Test blood sugar(s) 1 times daily. Dx: E11. Insulin: No aspirin 81 mg chewable tablet Take 81 mg by mouth once daily. Blood-Glucose Meter monitoring kit Glucose Meter of Choice - Kit - Dx: Type 2 DM - Uncontrolled multivitamins(DAILY MULTIVITAMIN TAB) Take one(1) tablet daily. No current facility-administered medications for this visit. FAMILY HISTORY Problem Relation Age of Onset Hypertension Mother Diabetes Mother Heart Mother [place], age 72; first dx age late 60's Lipids Mother Stroke Mother Blindness Mother Hypertension Father Lipids Father Diabetes Father Social History Tobacco Use Smoking status: Former Years: 3.00 Types: Cigarettes Quit date: 06/02/2020 Years since quittin.7 Smokeless tobacco: Never Tobacco comments: social smoking for 3 years. Occasional smoking when upset Vaping Use Vaping Use: Never used Substance Use Topics Alcohol use: Not Currently Comment: Seldom Drug use: No REVIEW OF SYSTEMS GENERAL: No weight loss, malaise or fevers/chills HEENT: Negative for frequent or significant headaches, No changes in hearing or vision. NECK: Negative for lumps, goiter, pain and significant neck swelling RESPIRATORY: Negative for cough, hemoptysis, wheezing, dyspnea or shortness of breath CARDIOVASCULAR: Negative for chest pain, leg swelling, orthopnea, or palpitations GI: No nausea, vomiting, or diarrhea/constipation. No hematochezia/melena. No heartburn or reflux symptoms. : No history of dysuria, frequency or incontinence MUSCULOSKELETAL: Negative for joint pain or swelling. SKIN: Negative for lesions, rash, and itching ENDOCRINE: Negative for cold or heat intolerance, polyuria, polydipsia and goiter NEURO: No history of headaches, syncope, paralysis, seizures or tremors MOOD: + Sadness EXAM: BP 132/82 Pulse (!) 57 Resp 16 Wt 92.1 kg (203 lb) SpO2 99% BMI 41.00 kg/m PHYSICAL EXAM: General Appearance: + Tearful, alert, in no acute distress, well-hydrated, well nourished. Skin: Skin color, texture, turgor normal, no suspicious rashes or lesions. Head: Normocephalic, no masses, lesions, tenderness or abnormalities. Eyes: Anicteric sclera. Extraocular movements are intact. Lungs: Lungs clear to auscultation. No wheezing, rhonchi, rales. Heart: RRR without murmur, gallop, or rubs. No ectopy. Extremities: No deformities, edema, skin discoloration, clubbing or cyanosis. Good capillary refill. Peripheral Pulses: Normal, Capillary refill <2secs, strong peripheral pulses, Pulses palpable. Neurologic: Gait normal. Reflexes normal and symmetric. Sensation grossly intact.. Mood: Tearful, good eye contact, engaged. PDMP website checked and validated. All prescriptions have been APPROPRIATELY filled. No suspicious activity was identified. 03/10/2022 by Aileen Quintanilla APRN.CNP ASSESSMENT/PLAN: 1. Moderate episode of recurrent major depressive disorder (HCC) - ICD9: 296.32, ICD10: F33.1 (primary diagnosis) - Continue to take medication as prescribed. - Will discuss medications with psychiatry - Recommend establishing care with counselor and grief group therapy. - CONSULT TO PSYCHIATRY 2. Anxiety - ICD9: 300.00, ICD10: F41.9 - Nurse spoke with pharmacy, they are requesting a new RX - LORAZEPAM 0.5 MG TABLET - CONSULT TO PSYCHIATRY Follow up in 1 month or sooner as needed. Discussed treatment plan and patient voices understanding. Patient's questions answered appropriately. Medications and potential side effects were discussed and patient voices understanding. Aileen Quintanilla APRN.CNP This note was partially generated using [employer] voice recognition system. Note was reviewed for accuracy. There may be minor misspellings or grammar miscues with [employer] voice recognition. documented in this encounter [facility] 03-08-2022 Miscellaneous Notes Reason for Call: Increased thoughts of depression. Patient also inquiring if she can take extra dose of atarax. Outcome: Recommended see a health care provider within 24 hours. tan room supervisor physician paged about medication question. Spoke with Dr. Underwood who advised that patient can take 50mg of Atarx q8hrs. Information relayed to patient. Reason for Disposition [1] Depression AND [2] worsening (e.g.,sleeping poorly, less able to do activities of daily living) Answer Assessment - Initial Assessment Questions 1. CONCERN:Patient lost her daughter three weeks ago and feels like the shock of everything is wearing off. 2. DEPRESSION SYMPTOM SCREENING: Patient very tearful and restless. 3. RISK OF HARM - SUICIDAL IDEATION: Denies thoughts of harming herself 4. RISK OF HARM - HOMICIDAL IDEATION: Denies thoughts of harming other 6. SUPPORT: Patient lives with her , who is there at time of assessment. 7. THERAPIST: Does not have a therapist Protocols used: [id number] documented in this encounter [facility] 02-27-2022 Miscellaneous Notes Patient calls to check on status of request. Notified of provider message below. Patient verbalizes understanding. Olga Samayoa RN She may try adding hydroxyzine as needed for more control of her anxiety; rx done Emily Wang MD Pt calling and she reports just got home from her daughter's cremation and it is started to hit home. Asking if she should increase medication she is on or is there something that could be given to help her get thru this time. Please advise pt. Mary Latif LPN documented in this encounter [facility] 02-12-2022 History of Present illness Narrative Chief Complaint Patient presents with: F/U 3 Month HPI Camila Harmon is a 61 year old female who presents here today for 3 month follow up. Here today for a 3 month follow up. With her . GERD: Sx controlled with Nexium 20 mg daily. HTN: Does not check BP at home. Denies any chest pains, dizziness, or SOB. Has been following with Cardio Dr. Nash for chest pains. Had cardiac cath done on 02/11/22, no new medication started. Is taking Norvasc 5 mg daily, Lisinopril 10 mg BID, and Atenolol 100 mg daily. KORY/Depression: Taking celexa 40 mg 1.5 tablets daily, Buspar 15 mg TID and Ativan 0.5 mg, 2 pills BID. Buspar was increased last visit from 10 mg TID to 15 mg TID due to stress. Feels she is doing well with this regimen. Denies doing any counseling. Reports some increased stress because her daughter is going to be getting out of detention soon. DM: Checks BS occ, usually when she thinks about it. Sugars ranging from 150-190, non fasting. Denies any hypoglycemic episodes or neuropathy symptoms. Follows with Pharmacist, Endo, and Psychiatric Np. Is on Metformin 500 mg BID, Trulicity 1.5 mg weekly, and Amaryl 4 mg BID. Lipid: Denies any regular exercise, but works. States she's not been hungry, so feels she's watching her diet. Taking Lipitor 40 mg daily, tolerates well. Vertigo: stable, uses Meclizine prn. Requesting for work excuse for cardiac cath, this was requested by Cardiology. She was placed on restrictions for not lifting over 4-10 lbs. 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 The hospital would not write her off. Note given to be off work until 02/16, given her bruising at the wrist. Foot - Injured her R foot at work on , when she got her foot caught under a pallet at work. States she was pivoting and her foot slid under the pallet causing her to fall. Since that time she's continued to have pain. Went to local ED and was evaluated. In a walking shoe at present time. Pt states that she filed it under Workers Comp, not sure if she will get it. HM - Declines HIV. Pt will get Flu shot in the next week or so at local pharmacy. Past medical history, appointments, medications, allergies reviewed. Previous Medical History PAST MEDICAL HISTORY Diagnosis Date Coronary artery disease Depressive disorder, not elsewhere classified Enlarged liver Excessive or frequent menstruation 07/06/2004 s/p TVH Migraine with aura, without mention of intractable migraine without mention of status migrainosus Other anxiety states Pure hypercholesterolemia S/P primary angioplasty with coronary stent 11/06/2008 Type II or unspecified type diabetes mellitus without mention of complication, not stated as uncontrolled Previous Surgical History PAST SURGICAL HISTORY Procedure Laterality Date CARPAL TUNNEL Bilateral 03/05/2017 COLONOSCOPY FLX DX W/COLLJ SPEC WHEN PFRMD 07/19/2013 Colonoscopy EXTRACTION, ERUPTED TOOTH OR EXPOSED ROOT (ELEVATION AND/OR FORCEPS REMOVAL) wisdom teeth HYSTERECTOMY HX PAST SURGICAL HISTORY OF 02/22/02 BREAST REDUCTION PAST SURGICAL HISTORY OF 2008, 2012 stent, LAD X2. VAGINAL HYSTERECTOMY UTERUS 250 GM/< 07/10 Hysterectomy, vaginal Family History FAMILY HISTORY Problem Relation Age of Onset Hypertension Mother Diabetes Mother Heart Mother NM, age 72; first dx age late 60's Lipids Mother Stroke Mother Blindness Mother Hypertension Father Lipids Father Diabetes Father Patient Allergies ALLERGIES Allergen Reactions Penicillins Hives Percocet [Oxycodone* GI Upset Tylenol-Codeine Prerna* Other: See Comments halucinations Current Medications Current Outpatient Medications on File Prior to Visit Medication Sig esomeprazole (NEXIUM) 20 mg capsule Take 20 mg by mouth once daily. lisinopril (ZESTRIL, PRINIVIL) 20 mg tablet Take 1 tablet by mouth twice daily. atorvastatin (LIPITOR) 80 mg tablet Take 1 tablet by mouth daily at bedtime for cholesterol. dulaglutide (TRULICITY) 1.5 mg/0.5 mL pen injector Inject 1.5 mg subcutaneously one time a week. atenolol (TENORMIN) 100 mg tablet Take 1 tablet by mouth once daily. citalopram (CELEXA) 40 mg tablet take 1 & 1/2 tablets once a day glimepiride (AMARYL) 4 mg tablet Take 1 tablet by mouth twice daily with meals. LORazepam (ATIVAN) 0.5 mg Take 2 tablets by mouth twice daily for 90 days. busPIRone (BUSPAR) 15 mg tablet Take 1 tablet by mouth three times daily. magnesium oxide (MAG-OX) 400 mg (241.3 mg magnesium) tablet Take 1 tablet by mouth twice daily. Blood-Glucose Meter Test blood sugar(s) 1 times daily. Dx: Type 2 DM - Uncontrolled E11.65 Insulin: No Lancets lancets Test blood sugar(s) 1 times daily. Dx: Type 2 DM - Uncontrolled E11.65 Insulin: No blood sugar diagnostic (BLOOD GLUCOSE TEST) test strip Test blood sugar(s) 1 times daily. Dx: Type 2 DM - Uncontrolled E11.65 Insulin: No metFORMIN (GLUCOPHAGE) 500 mg tablet Take 1 tablet by mouth twice daily with meals. nitroglycerin sublingual (NITROQUICK) 0.4 mg SL tablet Dissolve 1 tablet under the tongue as needed. FOR CHEST PAIN. IF NO RELIEF CALL 911 albuterol HFA (PROVENTIL HFA, VENTOLIN HFA) 90 mcg/actuation inhaler Inhale 2 Puffs as instructed every 4 hours as needed for wheezing/shortness of breath. meclizine (ANTIVERT) 25 mg tab Take 1 tablet by mouth three times daily as needed. promethazine (PHENERGAN) 25 mg tablet Take 1 tablet by mouth every 6 hours as needed for nausea/vomiting. blood sugar diagnostic (BLOOD GLUCOSE TEST) test strip Test blood sugar(s) 1 times daily. Dx: Type 2 DM - Uncontrolled E11.65 Insulin: No diclofenac (VOLTAREN) 1 % topical gel Apply 2 g to affected area four times daily. amLODIPine (NORVASC) 5 mg tablet Take 1 tablet by mouth once daily. Lancets lancets Test blood sugar(s) 1 times daily. Dx: E11.65. Insulin: No aspirin 81 mg chewable tablet Take 81 mg by mouth once daily. Blood-Glucose Meter monitoring kit Glucose Meter of Choice - Kit - Dx: Type 2 DM - Uncontrolled E11.65 multivitamins(DAILY MULTIVITAMIN TAB) Take one(1) tablet daily. No current facility-administered medications on file prior to visit. Social History Social History Tobacco Use Smoking status: Former Years: 3.00 Types: Cigarettes Quit date: 06/02/2020 Years since quittin.6 Smokeless tobacco: Never Tobacco comments: social smoking for 3 years. Occasional smoking when upset Vaping Use Vaping Use: Never used Substance Use Topics Alcohol use: Not Currently Comment: Seldom Drug use: No EXAM: BP 124/70 (BP Site: Left Arm, BP Position: Sitting, BP Cuff Size: Regular Adult) Pulse 68 Resp 16 Wt 90.9 kg (200 lb 6.4 oz) BMI 40.48 kg/m General Appearance: Well appearing, alert, in no acute distress, well-hydrated, well nourished. and Overweight. Lungs: Lungs clear to auscultation. No wheezing, rhonchi, rales.. Heart: RRR without murmur, gallop, or rubs. No ectopy. Extremities: Right lower arm bandage and heart cath area evaluated. Bruise noted, some tenderness when palpitated. Pt in right walking shoe due to foot injury. Health Maintenance List PNEUMOCOCCAL(1 - PCV) Never done HIV SCREENING Never done MAMMOGRAM due on 04/15/2018 DTAP,TDAP,TD(2 - Td or Tdap) due on 08/27/2019 COVID-19 VACCINE(4 - Booster for Pfizer series) due on 03/19/2021 COLORECTAL CANCER SCREENING due on 07/06/2021 SHINGRIX VACCINE(2 of 2) due on 08/04/2021 INFLUENZA(1) due on 11/06/2021 DIABETIC FOOT EXAM due on 04/24/2022 URINE ALBUMIN:CREATININE RATIO due on 04/29/2022 HBA1C due on 05/06/2022 ANNUAL PCP TEAM CHRONIC DISEASE VISIT due on 10/30/2022 LDL CHOLESTEROL due on 11/06/2022 DILATED RETINAL EXAM due on 12/05/2022 BP CONTROLLED (<130/80) due on 01/27/2023 HEPATITIS C SCREENING Completed PAP TESTING Discontinued HPV TESTING Discontinued Data reviewed Appointment on 02/05/2022 Component Date Value Glucose 02/05/2022 120 (A) BUN 02/05/2022 21 Creatinine 02/05/2022 0.77 Sodium 02/05/2022 138 Potassium 02/05/2022 3.9 Chloride 02/05/2022 104 CO2 02/05/2022 25 Anion Gap 02/05/2022 9 Calcium, Total 02/05/2022 9.5 Estimated Glomerular Thad* 02/05/2022 89 Magnesium 02/05/2022 1.7 WBC 02/05/2022 11.96 (A) RBC 02/05/2022 4.21 Hemoglobin 02/05/2022 12.9 Hematocrit 02/05/2022 38.2 MCV 02/05/2022 90.7 MCH 02/05/2022 30.6 MCHC 02/05/2022 33.8 RDW-CV 02/05/2022 14.6 Platelet Count 02/05/2022 281 MPV 02/05/2022 11.3 Absolute nRBC 02/05/2022 <0.01 Admission on 12/24/2021, Discharged on 12/24/2021 Component Date Value Ventricular Rate 12/24/2021 57 Atrial Rate 12/24/2021 57 P-R Interval 12/24/2021 142 QRS Duration 12/24/2021 92 QT Interval 12/24/2021 436 QTC Calculation ([place]ett) 12/24/2021 424 Calculated P [place] 12/24/2021 43 Calculated R [place] 12/24/2021 11 Calculated T [place] 12/24/2021 23 Glucose 12/24/2021 151 (A) BUN 12/24/2021 12 Creatinine 12/24/2021 0.53 (A) Sodium 12/24/2021 138 Potassium 12/24/2021 4.9 Chloride 12/24/2021 101 CO2 12/24/2021 26 Anion Gap 12/24/2021 11 Calcium, Total 12/24/2021 9.7 Estimated Glomerular Thad* 12/24/2021 107 VIVI High Sensitivity 12/24/2021 7 WBC 12/24/2021 11.53 (A) RBC 12/24/2021 4.49 Hemoglobin 12/24/2021 13.4 Hematocrit 12/24/2021 40.8 MCV 12/24/2021 90.9 MCH 12/24/2021 29.8 MCHC 12/24/2021 32.8 RDW-CV 12/24/2021 14.3 Platelet Count 12/24/2021 266 MPV 12/24/2021 11.4 Neut% 12/24/2021 66.7 Abs Neut 12/24/2021 7.69 (A) Lymph% 12/24/2021 24.5 Abs Lymph 12/24/2021 2.82 [place]% 12/24/2021 6.4 Abs [place] 12/24/2021 0.74 Eosin% 12/24/2021 1.4 Abs Eosin 12/24/2021 0.16 Baso% 12/24/2021 0.4 Abs Baso 12/24/2021 0.05 Immature Gran % 12/24/2021 0.6 Abs Immature Gran 12/24/2021 0.07 NRBC 12/24/2021 0.0 Absolute nRBC 12/24/2021 <0.01 Diff Type 12/24/2021 Auto Color 12/24/2021 Yellow Clarity 12/24/2021 Clear Glucose, Urine 12/24/2021 Negative Bilirubin, Urine 12/24/2021 Negative Ketones, Urine 12/24/2021 Negative Specific [place], Ur 12/24/2021 <=1.005 (A) Hemoglobin/Blood,Ur 12/24/2021 Negative pH, Urine 12/24/2021 6.0 Protein, Urine 12/24/2021 Negative Urobilinogen 12/24/2021 0.2 EU/dL Nitrites 12/24/2021 Negative Leuk Esterase 12/24/2021 1+ (A) WBC, Urine 12/24/2021 0-5 /HPF RBC, Urine 12/24/2021 0-3 /HPF Bacteria 12/24/2021 Rare (A) Squamous Epithelial Cells 12/24/2021 Few VIVI High Sensitivity 12/24/2021 <6 ASSESSMENT/PLAN: 1. Anxiety - ICD9: 300.00, ICD10: F41.9 (primary diagnosis) Continue current medications. 2. Moderate episode of recurrent major depressive disorder (HCC) - ICD9: 296.32, ICD10: F33.1 Continue current medications. 3. Controlled type 2 diabetes mellitus without complication, without long-term current use of insulin (HCC) - ICD9: 250.00, ICD10: E11.9 Controlled. - Continue current medications 4. Hypertension, essential - ICD9: 401.9, ICD10: I10 - good control - Continue current medication(s) - Recommended regular aerobic exercise. - Recommend home blood pressure monitoring, to bring results in on next visit - Goal of BP <140/90 5. Pure hypercholesterolemia - ICD9: 272.0, ICD10: E78.00 Continue current medications. 6. Hypomagnesemia - ICD9: 275.2, ICD10: E83.42 7. Vertigo - ICD9: 780.4, ICD10: R42 8. Right foot injury, sequela - ICD9: 908.9, ICD10: S99.921S 3 mo f/u with labss. I agree with the Chief Complaint, ROS, and Past Histories independently gathered by the clinical information support project manager and the remaining scribed note accurately describes my personal service to the patient. Medical Decision Making: Problems: Moderate: 2+ stable chronic illnesses Data: Unique test(s) ordered: 2 Risk: Moderate: Drug management Medical Decision Making Level: 4 - Moderate Emily Wang MD The documentation for this note was completed by Edith Chavira Ma acting as scribe for Emily Wang MD. February 12, 2022 11:48 AM. Edith Chavira Ma documented in this encounter [facility] 02-11-2022 Miscellaneous Notes Patient had a heart catheterization procedure done today. Patient having pain and thumping in incision site. Patient has questions regarding pain medication. Denies red flag symptoms. Patient transferred to [facility] speeder operator to page office communication professor for cardiology. documented in this encounter [facility] 02-11-2022 Nurse Note Other: Ulna band removed, no hematoma noted. documented in this encounter [facility] 02-11-2022 Surgical operation note CARDIAC CATHETERIZATION REPORT PATIENT NAME: Camila Harmon SERVICE DATE: 02/11/2022 SERVICE TIME: 11:07 AM Pig Farm Manager: Abelardo Nash DO Attending: Chirag Fernandez MD RECOMMENDATIONS: Continue medical therapy and risk factor modification Pre-Procedure Diagnosis: 61-year-old woman with known coronary artery disease prior coronary intervention referred for coronary angiography due to chest pain and shortness of breath on exertion abnormal nuclear stress test. Post- Procedure Diagnosis: Patent stents in the proximal to mid LAD with mild in-stent restenosis. Bifurcation stenting into the first large diagonal branch with an ostial 50-60% in-stent restenosis. Otherwise mild diffuse disease. Normal LVEDP Procedure: Left Heart Catheterization Access: Right ulnar artery Under Local anesthesia the the right radial artery was entered. Due to severe spasm the sheath had to be removed. Under local anesthesia and using ultrasound guidance the right ulnar artery was entered by Seldinger's technique using a micro puncture needle. A 6F sheath was introduced into the right ulnar artery . Selective injections were made in the left and right coronary arteries in various right and left anterior oblique views. An LV pressure was performed in 30 degree BAUM. The sheath was removed and hemostatsis was established using TR band closure device. There was no bleeding at the end of the procedure. The pt was returned to the recovery room in a stable condition. FINDINGS: Hemodynamics: LVEDP: 10 mmHg LV - AORTA: No gradient. Coronary Angiography: Left Main: Normal, short artery. The LAD and left circumflex nearly arise from separate ostia. Left Anterior Descending: Small to moderate caliber vessel. There is a patent stent in the proximal to mid vessel with mild diffuse in-stent restenosis (30-40%). There is a moderate caliber first diagonal branch. There is bifurcation stenting from the proximal to mid LAD into the first diagonal branch. The ostium of the diagonal branch has a 50-60% in-stent restenosis with otherwise mild diffuse disease. The mid mid distal and distal LAD have mild diffuse disease. Circumflex: Small caliber nondominant vessel extending into a single obtuse marginal branch with mild diffuse disease Right Coronary Artery: Moderate caliber dominant vessel with mild diffuse disease Collaterals: None Complications: None SIGNATURE: Chirag Fernandez MD DATE: February 11, 2022 TIME: 11:06 AM documented in this encounter [facility] 02-11-2022 History and physical note UPDATED H&P PRE-CARDIAC CATHETERIZATION SERVICE DATE: 02/11/2022 SERVICE TIME: 9:59 AM PHYSICAL EXAM MUST BE COMPLETED ON ADMISSION The History and Physical (completed in the past 30 days) has been reviewed and the patient has been examined. The contents accurately reflect the patient's condition with the following additions or revisions since the H&P was completed. Examination indicates no changes. Planned Procedure: Left Heart Cath + Possible PCI Primary Indication for Procedure: Abnormal Stress Test High Risk Features: History of Prior CABG: No History of Prior PCI: Yes: > 12 months Cardiomyopathy: No Anti-ischemic Meds in Past 2 Weeks: Beta blockers, Nitrates, and Ranexa Ejection Fraction: 73% from Previous Stress Test Risk Appropriateness: Angina Class in Past 2 Weeks: Class III - Marked limitation of ordinary physical activity Stress Test Results: Low risk Cardiogenic Shock: No CHF in Past 2 Weeks: No HISTORY OF BLEEDING: No This H&P can be found in the Electronic Medical Record dated 01/27/2022. SIGNATURE: Chirag Fernandez MD PATIENT NAME: Camila Harmon DATE: February 11, 2022 TIME: 9:59 AM documented in this encounter [facility] 01-27-2022 Instructions Anamika Ocasio APRN.CNP - 01/27/2022 1:46 PM EST It was great to see you today, as we discussed: 1. Your stress test showed two possible areas of decreased blood flow as we discussed we will obtain a repeat heart catheterization at this time. 2. If you don't hear from [facility] by next Wednesday call the office or send me a message via [employer] and let me know 3. You will need lab work completed before the heart cath. Non fasting. (Make sure you tell them not to check your cholesterol) 4. Follow up with Dr. Nash as scheduled. If you need to be seen sooner please call and schedule with myself or one of the other branch credit counselor. documented in this encounter [facility] 01-27-2022 History of Present illness Narrative Images from the original note were not included. [facility] [place] [facility] [place] Department of Cardiovascular Medicine SECTION OF CLINICAL CARDIOLOGY OUTPATIENT VISIT DATE January 27, 2022 OUTPATIENT VISIT TYPE ESTABLISHED PRIMARY CARE PHYSICIAN: Emily Wang [address] [place] [address] CHIEF COMPLAINT: Reviewed stress test HISTORY OF PRESENT ILLNESS: Ms. Harmon is a 61 year old female with past medical history of HTN, HLD, family history premature CAD, CAD s/p PCI in 2010 and 2008, untreated FLOR, diabetes mellitus type 2, and obesity who presents today for a cardiovascular medicine follow-up visit. She was last seen in the office by Dr. Nash on 12/25 following an ED visit for 3 weeks of intermittent chest pain and shortness of breath with normal troponin. She had been lost to follow-up for about 3 years prior to this office visit. At the time of her visit her blood pressure was noted to be uncontrolled and her lisinopril was increased to 20 mg twice daily. Her cholesterol was also noted to be under suboptimal control for which her atorvastatin was increased to 80 mg. She was encouraged to start exercising regularly. Plan was for repeat nuclear stress testing with follow-up in 3 months time. She underwent exercise MPI stress on 01/23 and was only able to reach 55% predicted heart rate thus was converted to pharmacological which demonstrated mild (<10%) ischemia in the LAD and RCA territory with gated LVEF of 73%. Since her last office visit she has started taking a PPI and has noted some improvement in her chest discomfort however has not noted complete resolution. She continues to have episodes of chest discomfort which she describes as midsternal something moving and pressure. This occurs at random both with exertion an at rest. She also notes progressive CRUZ over the last year. She works in a [employer] and frequently has to stock an unpack heavy boxes for which she has to stop and take multiple breaks to catch her breath. She is not participating in any daily aerobic exercise. She is not regularly monitoring her blood pressure at home. She notes that recently she has felt anxious and very overwhelmed and occasionally has palpitations when she feels worked up. She denies any lightheadedness, dizziness, presyncope, syncope, or lower extremity edema. Subjective PAST MEDICAL HISTORY Diagnosis Date Coronary artery disease Depressive disorder, not elsewhere classified Enlarged liver Excessive or frequent menstruation 07/06/2004 s/p TVH Migraine with aura, without mention of intractable migraine without mention of status migrainosus Other anxiety states Pure hypercholesterolemia S/P primary angioplasty with coronary stent 11/06/2008 Type II or unspecified type diabetes mellitus without mention of complication, not stated as uncontrolled PAST SURGICAL HISTORY Procedure Laterality Date CARPAL TUNNEL Bilateral 03/05/2017 COLONOSCOPY FLX DX W/COLLJ SPEC WHEN PFRMD 07/19/2013 Colonoscopy EXTRACTION, ERUPTED TOOTH OR EXPOSED ROOT (ELEVATION AND/OR FORCEPS REMOVAL) wisdom teeth HYSTERECTOMY HX PAST SURGICAL HISTORY OF 02/22/02 BREAST REDUCTION PAST SURGICAL HISTORY OF 2008, 2011 stent, LAD X2. VAGINAL HYSTERECTOMY UTERUS 250 GM/< 07/10 Hysterectomy, vaginal Social History Tobacco Use Smoking status: Former Years: 3.00 Types: Cigarettes Quit date: 06/02/2020 Years since quittin.6 Smokeless tobacco: Never Tobacco comments: social smoking for 3 years. Occasional smoking when upset Vaping Use Vaping Use: Never used Substance Use Topics Alcohol use: Not Currently Comment: Seldom Drug use: No FAMILY HISTORY Problem Relation Age of Onset Hypertension Mother Diabetes Mother Heart Mother [place], age 72; first dx age late 60's Lipids Mother Stroke Mother Blindness Mother Hypertension Father Lipids Father Diabetes Father ALLERGIES: ALLERGIES Allergen Reactions Penicillins Hives Percocet [Oxycodone* GI Upset Tylenol-Codeine Prerna* Other: See Comments halucinations MEDICATIONS: esomeprazole (NEXIUM) 20 mg capsule Take 20 mg by mouth once daily. lisinopril (ZESTRIL, PRINIVIL) 20 mg tablet Take 1 tablet by mouth twice daily. atorvastatin (LIPITOR) 80 mg tablet Take 1 tablet by mouth daily at bedtime for cholesterol. dulaglutide (TRULICITY) 1.5 mg/0.5 mL pen injector Inject 1.5 mg subcutaneously one time a week. atenolol (TENORMIN) 100 mg tablet Take 1 tablet by mouth once daily. citalopram (CELEXA) 40 mg tablet take 1 & 1/2 tablets once a day glimepiride (AMARYL) 4 mg tablet Take 1 tablet by mouth twice daily with meals. LORazepam (ATIVAN) 0.5 mg Take 2 tablets by mouth twice daily for 90 days. busPIRone (BUSPAR) 15 mg tablet Take 1 tablet by mouth three times daily. magnesium oxide (MAG-OX) 400 mg (241.3 mg magnesium) tablet Take 1 tablet by mouth twice daily. Blood-Glucose Meter Test blood sugar(s) 1 times daily. Dx: Type 2 DM - Uncontrolled E11.65 Insulin: No Lancets lancets Test blood sugar(s) 1 times daily. Dx: Type 2 DM - Uncontrolled E11.65 Insulin: No blood sugar diagnostic (BLOOD GLUCOSE TEST) test strip Test blood sugar(s) 1 times daily. Dx: Type 2 DM - Uncontrolled E11.65 Insulin: No metFORMIN (GLUCOPHAGE) 500 mg tablet Take 1 tablet by mouth twice daily with meals. nitroglycerin sublingual (NITROQUICK) 0.4 mg SL tablet Dissolve 1 tablet under the tongue as needed. FOR CHEST PAIN. IF NO RELIEF CALL 911 meclizine (ANTIVERT) 25 mg tab Take 1 tablet by mouth three times daily as needed. promethazine (PHENERGAN) 25 mg tablet Take 1 tablet by mouth every 6 hours as needed for nausea/vomiting. blood sugar diagnostic (BLOOD GLUCOSE TEST) test strip Test blood sugar(s) 1 times daily. Dx: Type 2 DM - Uncontrolled E11.65 Insulin: No diclofenac (VOLTAREN) 1 % topical gel Apply 2 g to affected area four times daily. Lancets lancets Test blood sugar(s) 1 times daily. Dx: E11.65. Insulin: No aspirin 81 mg chewable tablet Take 81 mg by mouth once daily. Blood-Glucose Meter monitoring kit Glucose Meter of Choice - Kit - Dx: Type 2 DM - Uncontrolled E11.65 multivitamins(DAILY MULTIVITAMIN TAB) Take one(1) tablet daily. albuterol HFA (PROVENTIL HFA, VENTOLIN HFA) 90 mcg/actuation inhaler Inhale 2 Puffs as instructed every 4 hours as needed for wheezing/shortness of breath. amLODIPine (NORVASC) 5 mg tablet Take 1 tablet by mouth once daily. REVIEW OF SYSTEMS: CARD: See HPI GENERAL: Negative for: Weight loss or gain, Fever and/or Chills +Fatigue HEENT: Negative for: Headache, Impaired Vision, Glasses, Hearing Impairment, Ringing in Ears, Nosebleeds, Bleeding Gums NECK: Negative for: Swelling, Pain, Stiffness RESPIRATORY: Negative for: Cough, Blood in Sputum, Wheezing, Apnea +CRUZ GASTROINTESTINAL: Negative for: Nausea, Vomiting, Diarrhea, Blood in stool, or Dark black stools MUSCULOSKELETAL: Negative for: Muscle or joint pain, Stiffness , Joint swelling NEUROLOGIC/PSYCH: Negative for: focal numbness/weakness, headaches, visual changes, ataxia, speech/language loss +Anxiety SKIN: Negative for: Rashes, Itching HEMATOLOGICAL/LYMPHATIC: Negative for: Easy bruising , Easy bleeding ENDOCRINE: Negative for: Heat or cold intolerance, Excessive sweating, Frequent urination, Frequent thirst Objective PHYSICAL EXAMINATION: BP 128/62 Pulse 63 Ht 157.5 cm (5' 2) Wt 92.5 kg (204 lb) SpO2 97% BMI 37.31 kg/m General: Well appearing, in no acute distress. Skin: No clubbing, no cyanosis. Eyes: Extra ocular movements intact Oropharynx: Teeth in good repair. Neck: No jugular venous distention, no carotid bruits, carotids have a normal upstroke. Lungs: Clear to auscultation bilaterally, no wheezing or rhonchi. Heart: Regular rhythm, S1, S2 normal, no S3, no S4, no heaves, no rub and no murmur. No peripheral edema . Grade 2/4 distal pulses bilaterally. Abdomen: Soft, nontender, bowel sounds normal, no bruits. Neuro: Oriented to person, place and time, alert, cooperative, gait coordinated. CARDIOVASCULAR MEDICINE TESTING: No Cardiovascular testing perfomed today. Last ECHO Result Conclusion ECHO Collected: 04/18/2021 2:23 PM (Final result) Impression: CONCLUSIONS: - Exam indication: Stroke - The left ventricle is normal in size. Left ventricular systolic function is normal. EF = 63 5% (2D biplane) Definity contrast used for endocardial border detection. Grade I left ventricular diastolic dysfunction. - The right ventricle is normal in size. Right ventricular systolic function is low normal. - -Mild to moderate 1-2+ TR. - There is no patent foramen ovale as detected by saline contrast with valsalva. - Bubble study appears to be negative although image quality is suboptimal. - There is mild pulmonic insufficiency present. - Exam was compared with the prior echocardiographic exam performed on 03/19/20. The degree of pulmonic and tricuspid insufficiency has increased slightly. * * * Final * * * Last EKG Result Conclusion EKG Collected: 12/24/2021 10:04 AM (Final result) Impression: SINUS BRADYCARDIA OTHERWISE NORMAL ECG 1020 Confirmed by ABELARDO JOEL DO ([id number]), supervising editor news reel LETICIA ALFONSO ([id number]) on 12/24/2021 2:08:10 PM Pharm MPI Stress 01/23/2022: 1. SPECT Perfusion Study: Abnormal. 2. No evidence of scarred myocardium. 3. There is mild (<10%) ischemia in the territory of the LAD. 4. There is mild (<10%) ischemia in the territory of the RCA. 5. Right ventricle is normal in size. 6. This is an intermediate risk scan. Gated Stress IR:3D LVEF % 73 I have personally reviewed the Stress Test: Nuclear (Non-PET). PLAN AND RECOMMENDATIONS: 1. Chest Pain - Etiology unclear with possible GI component - Mild improvement with PPI - Occurs intermittently at random both with exertion and at rest - Significant CAD history and suboptimally treated risk factors therefore will recheck MPI - Nuclear stress test 01/23 with mild (<10%) ischemia in the LAD and RCA territory - [facility] 2. Coronary artery disease - S/P PCI with stent to prox-diag (2008) at [facility] - S/P PCI with stent to LAD (2010) at [facility] - Symptom at time of stents was panic attacks which did not resolve much after PCI - Suboptimal treatment of lipids, HTN, DM and exercise - Lisinopril and statin increased 12/25 - Continue ASA, Statin and BB as currently ordered - Nuclear stress test 01/23 with mild (<10%) ischemia in the LAD and RCA territory - [facility] - BMP/, Mag, CBC 3. Mixed hyperlipidemia - Currently on Atorvastatin 80 mg daily (Increased 12/25) - Last lipid panel 11/2021 with total cholesterol 269, triglycerides 343, and LDL 160 - Normal LFTs 11/2021 - Lipid panel ~03/27/2022 4. Essential hypertension - Optimal control on atenolol, lisinopril, an amlodipine - Encouraged dietary sodium restriction/DASH diet - Reviewed risks of HTN and principles of treatment - Goal of BP <130/80 - Home BP log 5. Diabetes mellitus type 2 - Suboptimal control - Most recent A1c 7.7 (8, 10.2) - Heart healthy diabetic diet - Exercise - Weight loss 6. Untreated FLOR - Untreated with some tollerance issues to CPAP - Exercise - Weight loss - Sleep medicine consult placed at prior OV CONCLUSION: Patient presents today to review recent abnormal stress test results demonstrating mild (<10%) ischemia in the LAD and RCA territory. She continues to have intermittent chest pain occurring at random both with exertion an at rest. She did have mild improvement in her chest discomfort after starting a PPI. She has significant history of CAD requiring multiple stents as well as family history of premature CAD and has not been optimally controlled for the last 3 years which does increase her risk of significant CAD at this time. This was reviewed with Dr. Nash who agrees with proceeding with [facility] at this time. We will obtain a set of labs in preparation for such. Her most recent cholesterol profile is not under favorable control and her atorvastatin dose was increased in December. She will have repeat lipid panel in 3 months time. Her heart rate and blood pressure are under favorable control in the office today. She is not monitoring her blood pressure regularly at home and we did encourage her to do so and bring a log with her to her follow-up appointment. She was encouraged to begin participating in daily aerobic exercise. I have made no additions or changes to her medications. She should continue to actively engage in cardiovascular risk factor modification and follow up with Dr. Nash in 3 months, or sooner should need arise. CONTACT INFORMATION: Anamika Ocasio APRN.FIDEL Cardiology Nurse Practitioner Section of Regional Cardiology [facility] Dept of Cardiovascular Medicine [facility] [place] [address] [address] Office Office This note was partially generated using [employer] voice recognition system and may contain errors related to that system including grammar, punctuation, spelling, and words that may be inappropriate documented in this encounter [facility] 01-26-2022 Miscellaneous Notes Patient called regarding stress test results; preliminary report up in system. Returned call, left VM. documented in this encounter [facility] 01-23-2022 History of Present illness Narrative RADIOLOGY SERVICE PROGRESS NOTE SERVICE DATE: 01/23/2022 SERVICE TIME: 9:43 AM PATIENT IDENTITY VERIFICATION COMPLETED USING TWO (2) STANDARD IDENTIFIERS: Name and Date of confirmed by patient verbally and Name and Date of confirmed by identification band FALL SCREENING: Has the patient had 2 falls in the last year or 1 fall with injury or currently using an Ambulatory Assistive Device (Walker, Cane, Wheelchair, Crutches, etc.)? No PATIENT GENDER DATA: .female : No ALLERGIES: Reviewed and unchanged MEDICATIONS REVIEWED: Not applicable PATIENT RELEVANT IMPLANT DATA REVIEWED: Not Applicable CREATININE: Creatinine Date Value Ref Range Status 12/24/2021 0.53 (L) 0.58 - 0.96 mg/dL Final 11/06/2021 0.65 0.58 - 0.96 mg/dL Final 06/30/2021 0.56 (L) 0.58 - 0.96 mg/dL Final Estimated Glomerular Filtration Rate Date Value Ref Range Status 12/24/2021 107 >=60 mL/min/1.73m Final Comment: Estimated Glomerular Filtration Rate (eGFR) is calculated using the 2020 CKD-EPI creatinine equation. This equation utilizes serum creatinine, sex, and age as parameters. The creatinine assay has traceable calibration to isotope dilution-mass spectrometry. Refer to KDIGO guidelines for clinical interpretation. In patients with unstable renal function, e.g. those with acute kidney injury, the eGFR may not accurately reflect actual GFR. eGFR- Date Value Ref Range Status 04/20/2021 >60 Final P.O.C.T. RESULTS: N/A January 23, [address] PERFORMED: No IV SITE: Ambulatory: A peripheral IV was started in the Right antecubital site with a Angio cath: 22 gauge. POST EXAM PIV STATUS: Discontinued PROCEDURE TYPE: NM Stress: 14.9 mCi [id number] was administered IV for Rest Imaging at 8:10 by MM. 47 mCi [id number] was administered IV for Stress Imaging at 9:20 by MM. PATIENT DISCHARGED TO: Ambulatory patient, left NM department area. A Diagnostic radioactive procedure has taken place, with no further precautions necessary other than routine body substance precautions. More information regarding radiation safety can be found using this link: [email or web address] SIGNATURE: THERESA Malloy PATIENT NAME: Camila Harmon DATE: January 23, 2022 TIME: 9:43 AM PAGER/CONTACT #: documented in this encounter [facility] 01-22-2022 Miscellaneous Notes Left message regarding reminder for stress test tomorrow and given instructions. documented in this encounter [facility] 01-19-2022 Miscellaneous Notes Called PT left VM to call us back. Has appointment for N Stress Test on 01/23/22 LUZ 12/25/[address] Nash a few weeks ago on 12/25. She is still having the same type of indigestion she discussed with him at the visit, along with nausea and feeling like she wants to vomit. She went to the pharmacy early this week and got the little purple pill that did not help. She is requesting a call back to see what she can do next and what Dr. Nash would recommend. Please call [phone] Thank you! Patient saw Dr. Nash a few weeks ago on 12/25. She is still having the same type of indigestion she discussed with him at the visit, along with nausea and feeling like she wants to vomit. She went to the pharmacy early this week and got the little purple pill that did not help. She is requesting a call back to see what she can do next and what Dr. Nash would recommend. Please call [phone] Thank you! documented in this encounter [facility] 12-25-2021 Instructions Abelardo Nash, - 12/25/2021 10:03 AM EDT We will need to increase your medications to help with your risk factors: I will defer your Diabetes treatment to Dr. Wang and it is getting better but should continue efforts to improve there as well. We will increase the Lipitor to 80 mg a day then recheck you lipid levels in 3 months with a goal of LDL < 70 (last one was 160) We will increase the lisinopril to 20 mg twice a day with a BP goal of no higher than 130/80 I will have you meet with sleep medicine to discuss options for treating sleep apnea. This is important since not only does sleep apnea make you feel very sleepy during the day it also affects all of your heart risk factors with increasing risk of heart failure and abnormal heart rhythms if left untreated. Finnaly we will have you do another stress test then follow up with you to review all of the above. It is also critical that you start an exercise program walking 30 minutes a day for at least 5 days a week. Weight loss will also help all of the above as will a heart healthy diet. documented in this encounter [facility] 12-25-2021 History of Present illness Narrative [facility] Heart [facility] V[facility] [place] Department of Cardiovascular Medicine SECTION OF REGIONAL CARDIOLOGY Consultation requested by Emily Wang MD for an opinion regarding Camila Harmon. My final recommendations will be communicated back to the requesting physician by way of shared Medical record or letter to requesting physician via US mail. CC: chest pain HPI: Camila Harmon is a 61 year old female with a history of hypertension, hyperlipidemia, family history of premature CAD, coronary artery disease status post PCI ([facility]) in 2010 and 2008 who is presented to ED yesterday with a 3-week history of intermittent central chest pain. She notes she has been having a lot of stress lately. She also has some SOB at times. She has been having this burning chest pain particular in association with eating or drinking. At times this radiates up into her neck and she feels nauseous. The pain does not seem to be exertional in nature. She denies any episodes of diaphoresis, nausea or vomiting. She has had intermittent cramping abdominal pains as well which she attributes to irritable bowel disease. She has not been take anything else for the pain. Denies any pain or swelling in her lower extremities. She has been lost to follow up since 2019. Her last MPI in 2019 was normal. Her LDL has been elevated. She is on a statin. She admits to significant daily hypersomnolence and a remote history of significant FLOR but did not like the CPAP because she got tangled in the cords. She has not had any treatment for many years. The patient denies any regular aerobic exercise Patient denies dizziness, lightheadedness, palpitations, lower extremity edema, PND, orthopnea, presyncope, syncope, claudication symptoms, or bleeding issues. PAST MEDICAL HISTORY Diagnosis Date Coronary artery disease Depressive disorder, not elsewhere classified Enlarged liver Excessive or frequent menstruation 07/06/2004 s/p TVH Migraine with aura, without mention of intractable migraine without mention of status migrainosus Other anxiety states Pure hypercholesterolemia S/P primary angioplasty with coronary stent 11/06/2008 Type II or unspecified type diabetes mellitus without mention of complication, not stated as uncontrolled PAST SURGICAL HISTORY Procedure Laterality Date CARPAL TUNNEL Bilateral 03/05/2017 COLONOSCOPY FLX DX W/COLLJ SPEC WHEN PFRMD 07/19/2013 Colonoscopy EXTRACTION, ERUPTED TOOTH OR EXPOSED ROOT (ELEVATION AND/OR FORCEPS REMOVAL) wisdom teeth HYSTERECTOMY HX PAST SURGICAL HISTORY OF 02/22/02 BREAST REDUCTION PAST SURGICAL HISTORY OF 2008, 2011 stent, LAD X2. VAGINAL HYSTERECTOMY UTERUS 250 GM/< 07/10 Hysterectomy, vaginal FAMILY HISTORY Problem Relation Age of Onset Hypertension Mother Diabetes Mother Heart Mother [place], age 72; first dx age late 60's Lipids Mother Stroke Mother Blindness Mother Hypertension Father Lipids Father Diabetes Father SOCIAL HISTORY Social History Tobacco Use Smoking status: Former Years: 3.00 Types: Cigarettes Quit date: 06/02/2020 Years since quittin.5 Smokeless tobacco: Never Tobacco comments: social smoking for 3 years. Occasional smoking when upset Vaping Use Vaping Use: Never used Substance Use Topics Alcohol use: Not Currently Comment: Seldom Drug use: No ALLERGIES: Penicillins, Percocet [Oxycodone-Acetaminophen], and Tylenol-Codeine Elixir CURRENT MEDICATIONS: Current Outpatient Medications Medication Sig dulaglutide (TRULICITY) 1.5 mg/0.5 mL pen injector Inject 1.5 mg subcutaneously one time a week. atenolol (TENORMIN) 100 mg tablet Take 1 tablet by mouth once daily. citalopram (CELEXA) 40 mg tablet take 1 & 1/2 tablets once a day lisinopril (ZESTRIL, PRINIVIL) 10 mg tablet Take 1 tablet by mouth twice daily. glimepiride (AMARYL) 4 mg tablet Take 1 tablet by mouth twice daily with meals. atorvastatin (LIPITOR) 40 mg tablet Take 1 tablet by mouth daily at bedtime for cholesterol. LORazepam (ATIVAN) 0.5 mg Take 2 tablets by mouth twice daily for 90 days. busPIRone (BUSPAR) 15 mg tablet Take 1 tablet by mouth three times daily. magnesium oxide (MAG-OX) 400 mg (241.3 mg magnesium) tablet Take 1 tablet by mouth twice daily. Blood-Glucose Meter Test blood sugar(s) 1 times daily. Dx: Type 2 DM - Uncontrolled E11.65 Insulin: No blood sugar diagnostic (BLOOD GLUCOSE TEST) test strip Test blood sugar(s) 1 times daily. Dx: Type 2 DM - Uncontrolled Insulin: No metFORMIN (GLUCOPHAGE) 500 mg tablet Take 1 tablet by mouth twice daily with meals. nitroglycerin sublingual (NITROQUICK) 0.4 mg SL tablet Dissolve 1 tablet under the tongue as needed. FOR CHEST PAIN. IF NO RELIEF CALL 911 meclizine (ANTIVERT) 25 mg tab Take 1 tablet by mouth three times daily as needed. blood sugar diagnostic (BLOOD GLUCOSE TEST) test strip Test blood sugar(s) 1 times daily. Dx: Type 2 DM - Uncontrolled Insulin: No diclofenac (VOLTAREN) 1 % topical gel Apply 2 g to affected area four times daily. Lancets lancets Test blood sugar(s) 1 times daily. Dx: E11.. Insulin: No aspirin 81 mg chewable tablet Take 81 mg by mouth once daily. Blood-Glucose Meter monitoring kit Glucose Meter of Choice - Kit - Dx: Type 2 DM - Uncontrolled multivitamins(DAILY MULTIVITAMIN TAB) Take one(1) tablet daily. famotidine (PEPCID) 20 mg tablet Take 1 tablet by mouth twice daily for 14 days. Lancets lancets Test blood sugar(s) 1 times daily. Dx: Type 2 DM - Uncontrolled Insulin: No albuterol HFA (PROVENTIL HFA, VENTOLIN HFA) 90 mcg/actuation inhaler Inhale 2 Puffs as instructed every 4 hours as needed for wheezing/shortness of breath. (Patient not taking: Reported on 12/25/2021) promethazine (PHENERGAN) 25 mg tablet Take 1 tablet by mouth every 6 hours as needed for nausea/vomiting. (Patient not taking: Reported on 12/25/2021) amLODIPine (NORVASC) 5 mg tablet Take 1 tablet by mouth once daily. (Patient not taking: Reported on 12/25/2021) No current facility-administered medications for this visit. ROS: Card: See present history. Pulm: See HPI Gastro: No nausea, vomiting, or diarrhea GenUr: No history of dysuria, frequency or incontinence Endo: Negative for cold or heat intolerance, polyuria or polydipsia. Neuro: no focal weakness, focal sensory loss, headache, visual changes, seizure activity, ataxia, speech/language loss. Musculoskeletal: Negative for joint or muscle pain, back pain, or swelling. Infect: no fevers, chills, rigors or night sweats. Skin: Negative for lesions, rash, and itching. Heme: Negative for prolonged bleeding, bruising easily or swollen nodes. The remainder of the review of systems is negative. PHYSICAL EXAMINATION: GENERAL: alert cooperative, pleasant oriented x 3 (self, time and place) in no acute distress obese BP 156/80 Pulse 63 Ht 157.5 cm (5' 2) Wt 91.6 kg (202 lb) SpO2 100% BMI 36.95 kg/m Last 3 Encounter BP Readings: Date: BP: 12/24/2021 181/87 10/30/2021 140/80 10/17/2021 158/84 Last 3 Encounter Pulse Readings: Date: Pulse: 12/24/2021 64 10/30/2021 78 10/17/2021 73 Last 3 Encounter Wt Readings: Date: Wt: 12/24/2021 93.4 kg (206 lb) 10/30/2021 90.8 kg (200 lb 1.6 oz) 10/17/2021 92.2 kg (203 lb 3.2 oz) SKIN: warm, dry, no rash. NECK: supple, no palpable masses, no JVD, carotids well felt, no bruits. CARDIAC: [place] palpable in the 5th intercostal space mid clavicular line, normal S1 and S2, no murmurs, gallops, or rubs. CHEST: Normal respiratory efforts, lungs clear to auscultation bilaterally. ABDOMEN: Soft, no tenderness, rigidity, or masses. No palpable liver or spleen. Normal bowel sounds, no bruits. NEURO: intact cranial nerves II through XII, no motor or sensory deficits in all 4 extremities. EXTREMITIES: No cyanosis, clubbing, or edema. Peripheral pulses well felt. CARDIAC (& OTHER IMPORTANT) TESTING: Echo 04/18/21: CONCLUSIONS: - Exam indication: Stroke - The left ventricle is normal in size. Left ventricular systolic function is normal. EF = 63 5% (2D biplane) Definity contrast used for endocardial border detection. Grade I left ventricular diastolic dysfunction. - The right ventricle is normal in size. Right ventricular systolic function is low normal. - -Mild to moderate 1-2+ TR. - There is no patent foramen ovale as detected by saline contrast with valsalva. - Bubble study appears to be negative although image quality is suboptimal. - There is mild pulmonic insufficiency present. - Exam was compared with the prior echocardiographic exam performed on 03/19/20. The degree of pulmonic and tricuspid insufficiency has increased slightly. 12/16/2018: CONCLUSIONS: 1. SPECT Perfusion Study: Normal. 2. There is no scintigraphic evidence for inducible ischemia. 3. No evidence of scarred myocardium. 4. Fair functional capacity for age and gender. 5. Left ventricle is normal in size. The left ventricle systolic function is normal. 6. Right ventricle is normal in size. 7. This is a low risk scan. LVEF % 74 The stress test was terminated due to the following: Dyspnea. Peak HR 144 bpm. Exercise duration 5 min 0 sec. (88 % MPHR) (7.0 METS) Peak BP 200 mmHg/86 mmHg Patient experienced shortness of breath during stress. Stress ECG normal ST segment response and normal sinus rhythm. Stress complications: none. LABS: Cholesterol, Total (mg/dL) Date Value 11/06/2021 269 03/10/2021 206 HDL Cholesterol (mg/dL) Date Value 11/06/2021 40 03/10/2021 41 LDL Cholesterol (mg/dL) Date Value 11/06/2021 160 03/10/2021 115 Triglyceride (mg/dL) Date Value 11/06/2021 343 03/10/2021 250 ASSESSMENT/PLAN: Chest Pain Etiology unclear with a GI component Significant CAD history and suboptimally treated risk factors therefore will recheck MPI CAD S/p PCI 2010, 2008 [facility] (sxs of panic attacks but not much change with PCI, did have more energy) Suboptimal treatment of lipids, HTN, DM and exercise Check MPI and treat above Exercise 30 min every day Hyperlipidemia LDL 160 on atorvastatin 40 mg daily Goal < 70 Increase atorvastatin 80 mg daily and may need further assistance Check lipid levels in 3 months Exercise Weight loss Essential hypertension Uncontrolled Goal of< 130/80 Increase lisinopril to 20 mg twice daily Exercise Weight loss Sodium restriction DM Suboptimal A1c 7.7 (8, 10.2) Heart healthy diabetic diet Exercise Weight loss FLOR Untreated with some tollerance issues to CPAP Consult sleep medicine Exercise Weight loss We had a long discussion regarding her events, treatment, prevention and prognosis. I reviewed the secondary prevention program in great detail with reference to risks, benefits, personal goals and mechanics. She has some chest discomfort with atypical and typical components that may end up being GI however the concern is that she does have significant coronary risk factors that have been suboptimally treated at least in part due to being lost to follow-up over the last 3 years. I will have her undergo myocardial perfusion imaging stress test to update her ischemic evaluation and then follow-up. She also has multiple coronary risk factors which are suboptimally treated and I did explain that her premature coronary disease is generally a more aggressive type then seen in the elderly and this makes it even more important to be aggressive with her risk factors. Her diabetes is improving but still could be better. Her blood pressure is uncontrolled and will increase her lisinopril to 20 mg twice daily. Her lipid levels are not at goal with an elevated triglyceride and LDL of 160 on atorvastatin 40 mg daily. I will double this to atorvastatin 80 mg daily and repeat her lipid profile in 3 months. She also has not had her significant sleep apnea treated for many years due to some intolerance to CPAP and I will have her see sleep medicine again to evaluate her current options. She will likely need a repeat sleep study. Finally I reviewed exercise and weight loss with a heart healthy diet and being compliant with follow-up. I will see her again in 3 months to review everything. In the meantime if her chest discomfort worsens she will let me know. Thank you for allowing me the privilege of participating in the care of your patient. Please do not hesitate to contact me if there are any questions. Abelardo Nash, DO, FACC, FCCP, FACOI CC: Emily Casey [facility] [address] [place] [address] documented in this encounter [facility] 11-24-2021 Miscellaneous Notes The following approved medication requests have been transmitted electronically. Requested Prescriptions Pending Prescriptions Disp Refills dulaglutide (TRULICITY) 1.5 mg/0.5 mL pen injector 2 mL 5 Sig: Inject 1.5 mg subcutaneously one time a week. Bahman Edmonds APRN.CNP Patient has been identified by name and date of : Yes Requested Prescriptions Pending Prescriptions Disp Refills dulaglutide (TRULICITY) 1.5 mg/0.5 mL pen injector 2 mL 5 Sig: Inject 1.5 mg subcutaneously one time a week. RX INSTRUCTIONS: Please send today Patient aware RX will be sent to pharmacy. No need to notify patient. Shahida Mulligan Pss documented in this encounter [facility] 10-30-2021 History of Present illness Narrative Chief Complaint Patient presents with: F/U 3 Month HPI Camila Harmon is a 60 year old female who presents here today for 3 month follow up. Here with her . No bowel, Gi, or urinary issues. GERD: She states she has not been taking Protonix. She states she feels like she has reflux and acid in the throat, gets a lot of pressure. Depression & KORY: Doing well on Celexa 40 mg 1.5 tablets daily, Buspar 10 mg 1 pill TID and Ativan 0.5 mg, 2 pills BID. Not doing any counseling. Admits to having episodes of feeling nauseated, clammy cold sweats, dizziness, these sx occur off and on the last 3 weeks. She states it occurs randomly, she has had them at home, while at the library, and even at work. States it will last a few hours. She states she has to get into a cool place with fan to cool down and lay down. She states that she isn't sure if she has rapid heart rate or SOB because she is so focused on getting out of the environment she is in. Admits that she and her have been under a lot of stress lately. States her stress was bad before but now it is really bad. Works 40+ hours a week at work and has stress with taking care of her . States she doesn't do any counseling because she doesn't have time. FLOR: She feels she is always tired as well, slept 18 hours one day. She states she sleeps ok, has good days and bad days. She does snore. Has had sleep study down in past. No CPAP or AutoPAP. DM: Checking BS occ, typically only checking it when she feels bad, says she is suppose to check 3 x per. Denies any hypoglycemic episodes. Admits to some neuropathy sx in feet. Taking Trulicity 1.5 mg weekly, Amaryl 4 mg BID and Metformin 500 mg BID. Follows with Pharmacist, Psychiatric Np, and Endocrinology. Lipid: Taking Lipitor 40 mg daily, tolerating well. Denies much exercise, not watching diet. Also taking Aspirin 81 mg daily. HTN: Denies checking BP at home. No chest pains, dizziness, or SOB. Taking Norvasc 5 mg daily, Atenolol 100 mg daily and Lisinopril 10 mg BID. Vertigo: using Meclizine prn. Past medical history, appointments, medications, allergies reviewed. Previous Medical History PAST MEDICAL HISTORY Diagnosis Date Depressive disorder, not elsewhere classified Enlarged liver Excessive or frequent menstruation 07/10 s/p TVH Migraine with aura, without mention of intractable migraine without mention of status migrainosus Other anxiety states Pure hypercholesterolemia S/P primary angioplasty with coronary stent 11/14 Type II or unspecified type diabetes mellitus without mention of complication, not stated as uncontrolled Previous Surgical History PAST SURGICAL HISTORY Procedure Laterality Date CARPAL TUNNEL Bilateral 03/05/2017 COLONOSCOPY FLX DX W/COLLJ SPEC WHEN PFRMD 07/19/2013 Colonoscopy EXTRACTION, ERUPTED TOOTH OR EXPOSED ROOT (ELEVATION AND/OR FORCEPS REMOVAL) wisdom teeth HYSTERECTOMY HX PAST SURGICAL HISTORY OF 02/22/02 BREAST REDUCTION PAST SURGICAL HISTORY OF 2008, 2011 stent, LAD X2. VAGINAL HYSTERECTOMY UTERUS 250 GM/< 07/10 Hysterectomy, vaginal Family History FAMILY HISTORY Problem Relation Age of Onset Hypertension Mother Diabetes Mother Heart Mother [place], age 72; first dx age late 60's Lipids Mother Stroke Mother Blindness Mother Hypertension Father Lipids Father Diabetes Father Patient Allergies ALLERGIES Allergen Reactions Penicillins Hives Percocet [Oxycodone* GI Upset Tylenol-Codeine Prerna* Other: See Comments halucmadalyn Current Medications Current Outpatient Medications on File Prior to Visit Medication Sig dulaglutide (TRULICITY) 1.5 mg/0.5 mL pen injector Inject 1.5 mg subcutaneously one time a week. magnesium oxide (MAG-OX) 400 mg (241.3 mg magnesium) tablet Take 1 tablet by mouth twice daily. LORazepam (ATIVAN) 0.5 mg Take 2 tablets by mouth twice daily for 90 days. Do not start before June 23, 2021. Blood-Glucose Meter Test blood sugar(s) 1 times daily. Dx: Type 2 DM - Uncontrolled E11.65 Insulin: No Lancets lancets Test blood sugar(s) 1 times daily. Dx: Type 2 DM - Uncontrolled E11.65 Insulin: No blood sugar diagnostic (BLOOD GLUCOSE TEST) test strip Test blood sugar(s) 1 times daily. Dx: Type 2 DM - Uncontrolled E11.65 Insulin: No metFORMIN (GLUCOPHAGE) 500 mg tablet Take 1 tablet by mouth twice daily with meals. busPIRone (BUSPAR) 10 mg tablet Take 1 tablet by mouth three times daily. nitroglycerin sublingual (NITROQUICK) 0.4 mg SL tablet Dissolve 1 tablet under the tongue as needed. FOR CHEST PAIN. IF NO RELIEF CALL 911 albuterol HFA (PROVENTIL HFA, VENTOLIN HFA) 90 mcg/actuation inhaler Inhale 2 Puffs as instructed every 4 hours as needed for wheezing/shortness of breath. meclizine (ANTIVERT) 25 mg tab Take 1 tablet by mouth three times daily as needed. promethazine (PHENERGAN) 25 mg tablet Take 1 tablet by mouth every 6 hours as needed for nausea/vomiting. atenolol (TENORMIN) 100 mg tablet Take 1 tablet by mouth once daily. citalopram (CELEXA) 40 mg tablet take 1 & 1/2 tablets once a day glimepiride (AMARYL) 4 mg tablet Take 1 tablet by mouth twice daily with meals. lisinopril (ZESTRIL, PRINIVIL) 10 mg tablet Take 1 tablet by mouth twice daily. blood sugar diagnostic (BLOOD GLUCOSE TEST) test strip Test blood sugar(s) 1 times daily. Dx: Type 2 DM - Uncontrolled E11.65 Insulin: No atorvastatin (LIPITOR) 40 mg tablet Take 1 tablet by mouth daily at bedtime for cholesterol. diclofenac (VOLTAREN) 1 % topical gel Apply 2 g to affected area four times daily. ondansetron orally disintegrating (ZOFRAN ODT) 4 mg disintegrating tablet Take 1 tablet by mouth every 6 hours as needed. pantoprazole DR (PROTONIX) 40 mg tablet Take 1 tablet by mouth daily before breakfast. Take on empty stomach, 1/2 hr before meal. amLODIPine (NORVASC) 5 mg tablet Take 1 tablet by mouth once daily. Lancets lancets Test blood sugar(s) 1 times daily. Dx: E11.65. Insulin: No aspirin 81 mg chewable tablet Take 81 mg by mouth once daily. Blood-Glucose Meter monitoring kit Glucose Meter of Choice - Kit - Dx: Type 2 DM - Uncontrolled E11.65 multivitamins(DAILY MULTIVITAMIN TAB) Take one(1) tablet daily. No current facility-administered medications on file prior to visit. Social History Social History Tobacco Use Smoking status: Former Years: 3.00 Types: Cigarettes Quit date: 06/02/2020 Years since quittin.4 Smokeless tobacco: Never Tobacco comments: social smoking for 3 years. Occasional smoking when upset Vaping Use Vaping Use: Never used Substance Use Topics Alcohol use: Not Currently Comment: Seldom Drug use: No EXAM: BP 140/80 Pulse 78 Resp 16 Wt 90.8 kg (200 lb 1.6 oz) BMI 36.60 kg/m General Appearance: Well appearing, alert, in no acute distress, well-hydrated, well nourished. and Obese. Lungs: Lungs clear to auscultation. No wheezing, rhonchi, rales.. Heart: RRR without murmur, gallop, or rubs. No ectopy. Health Maintenance List PNEUMOCOCCAL(1 - PCV) Never done HIV SCREENING Never done MAMMOGRAM due on 04/15/2018 DTAP,TDAP,TD(2 - Td or Tdap) due on 08/27/2019 DILATED RETINAL EXAM due on 11/13/2020 COVID-19 VACCINE(4 - Booster for Pfizer series) due on 05/22/2021 COLORECTAL CANCER SCREENING due on 07/06/2021 SHINGRIX VACCINE(2 of 2) due on 08/04/2021 HBA1C due on 09/29/2021 INFLUENZA(1) due on 11/06/2021 DIABETIC FOOT EXAM due on 04/24/2022 URINE ALBUMIN:CREATININE RATIO due on 04/29/2022 LDL CHOLESTEROL due on 06/30/2022 ANNUAL PCP TEAM CHRONIC DISEASE VISIT due on 08/21/2022 BP CONTROLLED (<130/80) due on 08/21/2022 HEPATITIS C SCREENING Completed PAP TESTING Discontinued HPV TESTING Discontinued Data reviewed None ASSESSMENT/PLAN: 1. Anxiety - ICD9: 300.00, ICD10: F41.9 (primary diagnosis) Uncontrolled Continue current medications. Increase Buspar from 10 mg TID to 15 mg TID - LORAZEPAM 0.5 MG TABLET 2. Vertigo - ICD9: 780.4, ICD10: R42 Stable Continue current medications. 3. Moderate episode of recurrent major depressive disorder (HCC) - ICD9: 296.32, ICD10: F33.1 Stable Continue current medications. Increase Buspar to 15 mg TID 4. Diabetes mellitus, non-insulin dependent (NIDDM or type II) (HCC) - ICD9: 250.00, ICD10: E11.9 uncontrolled - Continue current medications Continue with Milla, Pharmacist 5. Hypomagnesemia - ICD9: 275.2, ICD10: E83.42 Continue current medications. 6. Pure hypercholesterolemia - ICD9: 272.0, ICD10: E78.00 Continue current medications. Recommend healthy diet and exercise 7. Hypertension, essential - ICD9: 401.9, ICD10: I10 - fair control - Continue current medication(s) - Recommended regular aerobic exercise. - Recommend home blood pressure monitoring, to bring results in on next visit - Goal of BP <130/80 8. Panic attack - ICD9: 300.01, ICD10: F41.0 Increase Buspar from 10 mg TID to 15 mg TID Follow up in 3 months. Will call with lab results. I agree with the Chief Complaint, ROS, and Past Histories independently gathered by the clinical information support project manager and the remaining scribed note accurately describes my personal service to the patient. Medical Decision Making: Problems: Moderate: 2+ stable chronic illnesses and 1+ chronic illnesses with change Data: Unique test(s) ordered: 3+ Risk: Moderate: Drug management Medical Decision Making Level: 4 - Moderate Emily Wang MD The documentation for this note was completed by Kaleigh Dudley Ma acting as scribe for Emily Wang MD. October 30, 2021 11:14 AM. Kaleigh Dudley Ma documented in this encounter [facility] 08-21-2021 Instructions Aileen Quintanilla APRN.SHIPPING ORDER CLERK - 08/21/2021 3:08 PM EDT 1.) Get shoulder xray completed today. 2.) may use Tylenol for pain, may apply ice to the area, rest the shoulder. 3.) Follow up pending test results. documented in this encounter [facility] 08-21-2021 History of Present illness Narrative This is a 60 year old female who presents today with: Patient presents with: Pain (Shoulder Pain): X 2 days HISTORY OF PRESENT ILLNESS: Camila Harmon is a 60 year old female. Patient presents with: Pain (Shoulder Pain): X 2 days Here in the office for left shoulder pain. Started Wednesday, no injury to the area. Pain is sharp and constant. Difficulty moving arm. Has mild numbness that radiates into the left arm. Has not taken anything for pain or applied ice. Does sleep on sides at times. PAST MEDICAL HISTORY: PAST MEDICAL HISTORY Diagnosis Date Depressive disorder, not elsewhere classified Enlarged liver Excessive or frequent menstruation 07/10 s/p TVH Migraine with aura, without mention of intractable migraine without mention of status migrainosus Other anxiety states Pure hypercholesterolemia S/P primary angioplasty with coronary stent 11/14 Type II or unspecified type diabetes mellitus without mention of complication, not stated as uncontrolled PAST SURGICAL HISTORY Procedure Laterality Date CARPAL TUNNEL Bilateral 03/05/2017 COLONOSCOPY FLX DX W/COLLJ SPEC WHEN PFRMD 07/19/2013 Colonoscopy EXTRACTION, ERUPTED TOOTH OR EXPOSED ROOT (ELEVATION AND/OR FORCEPS REMOVAL) wisdom teeth HYSTERECTOMY HX PAST SURGICAL HISTORY OF 02/22/02 BREAST REDUCTION PAST SURGICAL HISTORY OF 2011 stent, LAD X2. VAGINAL HYSTERECTOMY UTERUS 250 GM/< 05 Hysterectomy, vaginal ALLERGIES Penicillins, Percocet [Oxycodone-Acetaminophen], and Tylenol-Codeine Elixir MEDICATIONS Current Outpatient Medications Medication Sig dulaglutide (TRULICITY) 1.5 mg/0.5 mL pen injector Inject 1.5 mg subcutaneously one time a week. magnesium oxide (MAG-OX) 400 mg (241.3 mg magnesium) tablet Take 1 tablet by mouth twice daily. LORazepam (ATIVAN) 0.5 mg Take 2 tablets by mouth twice daily for 90 days. Do not start before June 23, 2021. Blood-Glucose Meter Test blood sugar(s) 1 times daily. Dx: Type 2 DM - Uncontrolled E11.65 Insulin: No Lancets lancets Test blood sugar(s) 1 times daily. Dx: Type 2 DM - Uncontrolled E11.65 Insulin: No blood sugar diagnostic (BLOOD GLUCOSE TEST) test strip Test blood sugar(s) 1 times daily. Dx: Type 2 DM - Uncontrolled E11.65 Insulin: No metFORMIN (GLUCOPHAGE) 500 mg tablet Take 1 tablet by mouth twice daily with meals. busPIRone (BUSPAR) 10 mg tablet Take 1 tablet by mouth three times daily. nitroglycerin sublingual (NITROQUICK) 0.4 mg SL tablet Dissolve 1 tablet under the tongue as needed. FOR CHEST PAIN. IF NO RELIEF CALL 911 albuterol HFA (PROVENTIL HFA, VENTOLIN HFA) 90 mcg/actuation inhaler Inhale 2 Puffs as instructed every 4 hours as needed for wheezing/shortness of breath. meclizine (ANTIVERT) 25 mg tab Take 1 tablet by mouth three times daily as needed. promethazine (PHENERGAN) 25 mg tablet Take 1 tablet by mouth every 6 hours as needed for nausea/vomiting. atenolol (TENORMIN) 100 mg tablet Take 1 tablet by mouth once daily. citalopram (CELEXA) 40 mg tablet take 1 & 1/2 tablets once a day glimepiride (AMARYL) 4 mg tablet Take 1 tablet by mouth twice daily with meals. lisinopril (ZESTRIL, PRINIVIL) 10 mg tablet Take 1 tablet by mouth twice daily. blood sugar diagnostic (BLOOD GLUCOSE TEST) test strip Test blood sugar(s) 1 times daily. Dx: Type 2 DM - Uncontrolled E11.65 Insulin: No atorvastatin (LIPITOR) 40 mg tablet Take 1 tablet by mouth daily at bedtime for cholesterol. diclofenac (VOLTAREN) 1 % topical gel Apply 2 g to affected area four times daily. ondansetron orally disintegrating (ZOFRAN ODT) 4 mg disintegrating tablet Take 1 tablet by mouth every 6 hours as needed. pantoprazole DR (PROTONIX) 40 mg tablet Take 1 tablet by mouth daily before breakfast. Take on empty stomach, 1/2 hr before meal. amLODIPine (NORVASC) 5 mg tablet Take 1 tablet by mouth once daily. Lancets lancets Test blood sugar(s) 1 times daily. Dx: E11.. Insulin: No aspirin 81 mg chewable tablet Take 81 mg by mouth once daily. Blood-Glucose Meter monitoring kit Glucose Meter of Choice - Kit - Dx: Type 2 DM - Uncontrolled multivitamins(DAILY MULTIVITAMIN TAB) Take one(1) tablet daily. No current facility-administered medications for this visit. FAMILY HISTORY Problem Relation Age of Onset Hypertension Mother Diabetes Mother Heart Mother [place], age 72; first dx age late 60's Lipids Mother Stroke Mother Blindness Mother Hypertension Father Lipids Father Diabetes Father Social History Tobacco Use Smoking status: Former Smoker Years: 3.00 Quit date: 06/02/2020 Years since quittin.2 Smokeless tobacco: Never Used Tobacco comment: social smoking for 3 years. Occasional smoking when upset Vaping Use Vaping Use: Never used Substance Use Topics Alcohol use: Not Currently Comment: Seldom Drug use: No REVIEW OF SYSTEMS GENERAL: No weight loss, malaise or fevers/chills HEENT: Negative for frequent or significant headaches, No changes in hearing or vision. NECK: Negative for lumps, goiter, pain and significant neck swelling RESPIRATORY: Negative for cough, hemoptysis, wheezing, dyspnea or shortness of breath CARDIOVASCULAR: Negative for chest pain, leg swelling, orthopnea, or palpitations GI: No nausea, vomiting, or diarrhea/constipation. No hematochezia/melena. No heartburn or reflux symptoms. : No history of dysuria, frequency or incontinence MUSCULOSKELETAL: + Left Shoulder Pain SKIN: Negative for lesions, rash, and itching ENDOCRINE: Negative for cold or heat intolerance, polyuria, polydipsia and goiter NEURO: No history of headaches, syncope, paralysis, seizures or tremors MOOD: Negative for depression, anxiety, or suicidal ideation. EXAM: BP 124/66 Pulse 70 Resp 16 Wt 90.7 kg (200 lb) BMI 36.58 kg/m PHYSICAL EXAM: General Appearance: Well appearing, alert, in no acute distress, well-hydrated, well nourished. Skin: Skin color, texture, turgor normal, no suspicious rashes or lesions. Head: Normocephalic, no masses, lesions, tenderness or abnormalities. Eyes: Anicteric sclera. Extraocular movements are intact. Extremities: No deformities, edema, skin discoloration, clubbing or cyanosis. Good capillary refill. Musculoskeletal: + Left shoulder tenderness along AC joint and medial aspect of scapula. Decreased ROM. Muscle tension noted in left trapezius. Peripheral Pulses: Normal, Capillary refill <2secs, strong peripheral pulses, Pulses palpable. Neurologic: Gait normal. Reflexes normal and symmetric. Sensation grossly intact. ASSESSMENT/PLAN: 1. Acute pain of left shoulder - ICD9: 719.41, ICD10: M25.512 - Get xray of left shoulder to further evaluate acute causes of her symptoms. - Recommend using Tylenol as needed for pain, may apply ice, and rest the shoulder. - XR SHOULDER GENERAL 3V OR MORE AP/TRUE AP/OTHER LEFT Follow-up pending test results or sooner as needed. Discussed treatment plan and patient voices understanding. Patient's questions answered appropriately. Medications and potential side effects were discussed and patient voices understanding. Aileen Quintanilla APRN.FIDEL This note was partially generated using [employer] voice recognition system. Note was reviewed for accuracy. There may be minor misspellings or grammar miscues with [employer] voice recognition. documented in this encounter [facility] 07-07-[address] - 07/07/2021 11:24 AM EDT Aim for 1-2 carb choice per meal Include lean protein in each meal, choose whole grain/high fiber breads and grains, Include exercise on off days aiming for 30-45 min cardio (most days but at Least on off days) documented in this encounter [facility] 07-07-2021 History of Present illness Narrative Nutrition Therapy Initial Assessment Nutrition Diagnosis: Altered nutrition-related lab values, related to, endocrine dysfunction, as evidenced by HgA1c 8. RECOMMENDED MALNUTRITION DIAGNOSIS: NO MALNUTRITION IDENTIFIED NUTRITION CARE PLAN Nutrition Intervention 07/07/2021: modify type and amount of food or beverage Aim for 1-2 carb choice per meal Include lean protein in each meal, choose whole grain/high fiber breads and grains, Include exercise on off days aiming for 30-45 min cardio (most days but at Least on off days) Continue next visit of heart healthy choices (patient on a 30 min lunch break) Nutrition Monitoring & Evaluation: blood sugars in target range, half to 1 pound weightloss per week Need for Follow up: 3-4 weeks or per schedule Patient presents for initial MNT as relates to diabetes, has had for 14 years, uncontrolled. On Trulicity, metformin, and amaryl. Intake noted for 2-3 meals, often unable to take a lunch at work. Frequent meals out, Occ excess carb in diet ,occ high fat, high saturated fat foods. Beverages appropriate. Is active work, exercise less than recommended. Desires weight loss. Patient's symptoms are: Weight Concerns: failure to lose weight elevated blood sugars Diet History: wake 6 168-169 Breakfast - [place] muffin with jade and cheese; iced tea diet, water; Blueberry bagel with cream cheese Snack - no Lunch - If have will be left overs or small salad; water or tea Snack - if no lunch will be the left overs or bag popcorn - kettle corn Dinner - Early bird before 4; usually 5-7 p.m.- soup or meal of stir higuera, meat, veggies; meal out fish higuera all you can eat; grilled something Snack - berries, carrots, cheese Beverages - water ,diet tea, occ diet Pepsi Alcohol- no Vitamins/Supplements - MVI, chewy Activity: Activities of Daily Living: varies Additional Activity: Lightly active (Light exercise: planned physical activity 1-3 days/week) Activity at work, Walk dog - 2 blocks, working up to 4 blocks, Occ jogging on track Anthropometrics: Height: Last 1 Encounter Ht Readings: Date: Ht: 07/07/2021 157.5 cm (5' 2) Current weight: Last 1 Encounter Wt Readings: Date: Wt: 07/07/2021 93.1 kg (205 lb 4.8 oz) Body mass index is 37.55 kg/m . Resting Metabolic Rate: 1468 Malnutrition Screening Significant unintentional weight loss? No Eating less than 75% of usual intake for more than 2 weeks? No Potential Signs of Inflammation: no identifiable sources Education Materials Provided: Healthy You - Planning Healthy Meals (blue cover) READINESS TO LEARN Cognitive ability: Alert and oriented Motivation to learn: Interested Family support: Unable to assess - Family not present Instruction provided to: Patient Patient learns best by: Individual Instruction Factors affecting learning: None Physical limitations affecting learning: None Referred/Supervised by: Kathleen/Genevieve TOMLINSON Billing Type: Initial Assess/15 min 2 units SIGNATURE: Hortensia Barba RD PATIENT NAME: Camila Harmon DATE: July 07, 2021 TIME: 11:02 AM documented in this encounter [facility] 07-03-2021 History of Present illness Narrative Sw documentation can be found in diabetes nurse visit 07/02/21. documented in this encounter [facility] 07-02-2021 History of Present illness Narrative DIABETES CARE AND EDUCATION VISIT Location: [place] Type of visit: In person individual PATIENT'S MAIN CONCERN TODAY: What can I eat Support person present for education today: family Cognitive ability: Alert and oriented Motivation to learn: Interested Learning barriers identified by educator: none Method of instruction: written, verbal and demonstration DIABETES FINDINGS: Monitoring: reviewed Meal Planning: Discussed basic 30-60g per meal diet Medications: not discussed in detail as she had just come from meeting with pharmcist Problem Solving:hyper/hypo and sick day reviewed Physical Activity: Encouraged to walk or increase activity as she reports minimal exercise Reducing Risks: Importance of control to avoid complications Healthy Coping: not discussed LEARNING RESPONSE: Diabetes pathophysiology: Demonstrated understanding/competency today or at previous visit Healthy eating: Demonstrated understanding/competency today or at previous visit Being active: Demonstrated understanding/competency today or at previous visit Taking medications: Demonstrated understanding/competency today or at previous visit Monitoring glucose: Demonstrated understanding/competency today or at previous visit Acute complications: Demonstrated understanding/competency today or at previous visit Chronic complications: Demonstrated understanding/competency today or at previous visit DIABETES CARE AND EDUCATION PLAN: Individual follow-up Time Spent (Minutes): 45 This visit note will be communicated to the healthcare provider via access to shared medical record. SIGNATURE: Chirag Chavez RN PATIENT NAME: Camila Harmon DATE: July 02, 2021 TIME: 12:56 PM PAGER: documented in this encounter [facility] 07-02-2021 History of Present illness Narrative Primary Care Pharmacy Visit REASON FOR CONSULT: DM GOALS: A1c < 8% CONSULTING PROVIDER: Emily Wang MD Date of Consult: 04/29/21 Camila Harmon is a 60 year old female presenting for initial visit: This initial consult was conducted in person with the patient where the consult agreement was explained. The patient may decline or cancel the agreement at any time. After consideration, the patient consented to the pharmacy consult agreement and agreed to allow medications be collaboratively managed by a pharmacist. Last seen by PCP, Dr. Emily Wang MD on 04/29. At last PCP appt, labs were ordered and indicated. INTERIM HISTORY: Has been taking Trulicity since hospital admission in April 2021 Has met with endocrinology Readings remain elevated, mostly in 200s Current DM Medications: Metformin 500 mg twice daily Dulaglutide 0.75 mg once weekly Glimepiride 4 mg twice daily Preventative Medications: On MAGDALENA/ARB: Yes On Statin: Yes GLYCEMIC CONTROL: Glucometer present at visit: Yes SMBG s: Typically checking BG twice daily: morning and evening Date Fasting AM 2 hr PP Before Lunch 2 hr PP Before Dinner 2 hr PP Bedtime 07/01 77,215 258 06/30 284 06/29 221 06/28 162 06/27 254 06/26 322 334 06/25 365 Hypoglycemia: denies ROS: Patient denies CP, SOB, LUEVANO, blurred vision, dizziness or lightheadedness Patient denies nausea, vomiting, diarrhea, abdominal pain Patient denies symptoms of hypoglycemia (sweating, anxiety, palpitations, hunger, and tremor) Patient denies symptoms of hyperglycemia (polyuria, polydipsia, polyphagia) Patient denies potential medication adverse effects DIET/EXERCISE/SOCIAL Hx: Breakfast: blueberry muffin with cream cheese, or bagel with egg and jade Lunch: pork chops, baked potato Dinner: canned soup, meat ( and starch (potato) Snacks: popcorn, [place] islander cheese Beverages: sweetened tea (sweet and low), diet pepsi and water MEDICATIONS: Pill bottles are not present. Adherence: denies missed doses. Pharmacy: [facility] [place] ACTIVE PROBLEM LIST Personal History of Allergy to Penicillin Pure Hypercholesterolemia Anxiety Migraine With Aura, Without Mention of Intractable Migraine Without Mention of Status Migrainosus Diabetes Mellitus, Non-Insulin Dependent (Niddm Or Type Ii) ([facility]) Class 1 Obesity Due to Excess Calories With Serious Comorbidity and Body Mass Index (Bmi) of 33.0 to 33.9 in Adult Undersocialized Conduct Disorder, Aggressive Type, Unspecified Obstructive Sleep Apnea Carpal Tunnel Syndrome Coronary Atherosclerosis Major Depressive Disorder, Recurrent Episode (Hcc) Lumbago Vertigo Enlarged Liver Radiculopathy, Cervical Region Pain of Both Shoulder Joints Bilateral Carpal Tunnel Syndrome Hypertension, Essential Leukocytosis Chest Pain Shortness of Breath Ischemic Stroke (Hcc) Hypomagnesemia Hyperglycemia Due to Diabetes Mellitus (Hcc) Obesity, Class II, Bmi 35-39.9 PAST MEDICAL HISTORY Diagnosis Date Depressive disorder, not elsewhere classified Enlarged liver Excessive or frequent menstruation 07/10 s/p TVH Migraine with aura, without mention of intractable migraine without mention of status migrainosus Other anxiety states Pure hypercholesterolemia S/P primary angioplasty with coronary stent 11/14 Type II or unspecified type diabetes mellitus without mention of complication, not stated as uncontrolled ALLERGIES Allergen Reactions Penicillins Hives Percocet [Oxycodone* GI Upset Tylenol-Codeine Prerna* Other: See Comments halucinations Medication List Medication Directions Comments Action/Plan albuterol HFA (PROVENTIL HFA, VENTOLIN HFA) 90 mcg/actuation inhaler Inhale 2 Puffs as instructed every 4 hours as needed for wheezing/shortness of breath. PRN amLODIPine (NORVASC) 5 mg tablet Take 1 tablet by mouth once daily. Taking as directed aspirin 81 mg chewable tablet Take 81 mg by mouth once daily. Taking as directed atenolol (TENORMIN) 100 mg tablet Take 1 tablet by mouth once daily. Taking as directed atorvastatin (LIPITOR) 40 mg tablet Take 1 tablet by mouth daily at bedtime for cholesterol. Taking as directed benzonatate (TESSALON PERLES) 100 mg capsule Take 1-2 capsules by mouth three times daily as needed. Not taking Removed from list blood sugar diagnostic (BLOOD GLUCOSE TEST) test strip Test blood sugar(s) 1 times daily. Dx: Type 2 DM - Uncontrolled Insulin: No blood sugar diagnostic (BLOOD GLUCOSE TEST) test strip Test blood sugar(s) 1 times daily. Dx: Type 2 DM - Uncontrolled Insulin: No Blood-Glucose Meter Test blood sugar(s) 1 times daily. Dx: Type 2 DM - Uncontrolled Insulin: No Blood-Glucose Meter monitoring kit Glucose Meter of Choice - Kit - Dx: Type 2 DM - Uncontrolled busPIRone (BUSPAR) 10 mg tablet Take 1 tablet by mouth three times daily. Taking as directed citalopram (CELEXA) 40 mg tablet take 1 & 1/2 tablets once a day Taking as directed diclofenac (VOLTAREN) 1 % topical gel Apply 2 g to affected area four times daily. Taking as directed dulaglutide (TRULICITY) 0.75 mg/0.5 mL pen injector Inject 0.75 mg subcutaneously one time a week. Taking as directed glimepiride (AMARYL) 4 mg tablet Take 1 tablet by mouth twice daily with meals. Taking as directed Lancets lancets Test blood sugar(s) 1 times daily. Dx: E11.65. Insulin: No Lancets lancets Test blood sugar(s) 1 times daily. Dx: Type 2 DM - Uncontrolled Insulin: No lisinopril (ZESTRIL, PRINIVIL) 10 mg tablet Take 1 tablet by mouth twice daily. Taking as directed LORazepam (ATIVAN) 0.5 mg Take 2 tablets by mouth twice daily for 90 days. Do not start before June 23, 2021. Taking as directed magnesium oxide (MAG-OX) 400 mg (241.3 mg magnesium) tablet Take 1 tablet by mouth twice daily. Taking as directed meclizine (ANTIVERT) 25 mg tab Take 1 tablet by mouth three times daily as needed. Taking as directed metFORMIN (GLUCOPHAGE) 500 mg tablet Take 1 tablet by mouth twice daily with meals. Taking as directed multivitamins(DAILY MULTIVITAMIN TAB) Take one(1) tablet daily. Taking as directed nitroglycerin sublingual (NITROQUICK) 0.4 mg SL tablet Dissolve 1 tablet under the tongue as needed. FOR CHEST PAIN. IF NO RELIEF CALL 911 PRN, has not needed ondansetron orally disintegrating (ZOFRAN ODT) 4 mg disintegrating tablet Take 1 tablet by mouth every 6 hours as needed. PRN pantoprazole DR (PROTONIX) 40 mg tablet Take 1 tablet by mouth daily before breakfast. Take on empty stomach, 1/2 hr before meal. Taking as directed promethazine (PHENERGAN) 25 mg tablet Take 1 tablet by mouth every 6 hours as needed for nausea/vomiting. PRN Rx meds not listed in EPIC: none OTCs: none Herbals: none EXAM: Last 3 Encounter BP Readings: Date: BP: 07/02/2021 165/80 04/29/2021 138/80 04/24/2021 138/70 Wt: 93.4 kg (206 lb) BMI: 37.68 kg/(m^2) LABS: Lab Results Component Value Date HBA1C 8.0 06/30/2021 HBA1C 10.2 03/10/2021 HBA1C 9.8 07/01/2020 HBA1C 10.0 11/24/2019 CMP: Glucose 246 06/30/2021 BUN 16 06/30/2021 Creatinine 0.56 06/30/2021 Sodium 136 06/30/2021 Potassium 5.0 06/30/2021 Chloride 100 06/30/2021 CO2 24 06/30/2021 Protein, Total 7.0 06/30/2021 Albumin 4.1 06/30/2021 Calcium 9.3 06/30/2021 Alkaline Phosphatase 88 06/30/2021 Bilirubin, Total 0.8 06/30/2021 AST 21 06/30/2021 ALT 27 06/30/2021 Serum creatinine: 0.56 mg/dL (L) 06/30/21 0942 Estimated creatinine clearance: 116.5 mL/min (A) No results found for: B12 Lab Results Component Value Date CHOL 191 06/30/2021 CHOL 206 03/10/2021 LDL 100 06/30/2021 LDL 115 03/10/2021 HDL 37 06/30/2021 HDL 41 03/10/2021 TG 269 06/30/2021 TG 250 03/10/2021 The ASCVD Risk score (Hayden NGUYỄN Jr., et al., 2013) failed to calculate for the following reasons: The patient has a prior NM or stroke diagnosis Albumin/Creat Ratio (mg/g) Date Value 04/29/2021 14 PHARMACOTHERAPY ASSESSMENT/PLAN: 1. Diabetes mellitus, non-insulin dependent (NIDDM or type II) (HCC) - ICD9: 250.00, ICD10: E11.9 (primary diagnosis) A1c goal < 8%; not at goal (last A1c 8.0%); SMBG elevated on current regimen; denies s/sx hypoglycemia; denies s/sx hyperglycemia; Today, will optimize Trulicity dose for improved BG control. Renal function and LFTs appropriate for continued use INCREASE Trulicity 1.5 mg weekly CONTINUE Metformin 500 mg twice daily, Glimepiride 4 mg twice daily Instructed patient that if having low blood sugars, please hold glimepiride and call office to notify Winston Tang TRULICITY 1.5 MG/0.5 ML SUBCUTANEOUS PEN INJECTOR 2. Medication management - ICD9: V58.69, ICD10: Z79.899 Reviewed name, strength, route, frequency and time of administration of medications. Medication list updated as described in above medication chart. Follow up: Patient is scheduled to see PCP on 07/31/21. Patient to follow up with PharmD on 08/25/21. Patient verbalized understanding of instructions. Winstno Lopez PharmD, BCACP Primary Care Clinical Pharmacist [facility] The majority of the pharmacy visit (> 50%) was spent counseling and/or coordinating care for the patient. [Face to Face] time was 48 minutes. documented in this encounter [facility] 07-02-2021 Instructions Winston Lopez RPh - 07/02/2021 11:00 AM EDT - INCREASE Trulicity 1.5 mg weekly - Continue all other medications at same doses - if having low blood sugars, please hold glimepiride and call office to notify Winston documented in this encounter [facility] 06-09-2021 Miscellaneous Notes Patient calls to ask if she should receive the Shingrix vaccine d/t her spouse possibly having shingles. Patient to check with insurance for coverage and phone back if wants to schedule at [facility]. Olga Samayoa RN documented in this encounter [facility] 02-27-2021 History of Present illness Narrative Radiology Service Progress Note PATIENT NAME: Camila Harmon DATE OF SERVICE: February 27, 2021 TIME: 4:07 PM PATIENT IDENTITY VERIFICATION COMPLETED USING TWO (2) IDENTIFIERS: Name and Date of confirmed by patient verbally. FALL SCREENING: Has the patient had 2 falls in the last year or 1 fall with injury or currently using an Ambulatory Assistive Device (Walker, Cane, Wheelchair, Crutches, etc.)? No PATIENT GENDER DATA: Female. status: : No status: NO. PATIENT RELEVANT IMPLANT DATA REVIEWED: Yes RADIOLOGY DEPARTMENT: General X-ray: Exam(s) Completed: Chest X-Ray PERIPHERAL IV DATA: Not applicable SIGNED BY: RT Simona(R) February 27, 2021 4:07 PM documented in this encounter [facility] 08-12-2020 History of Present illness Narrative Radiology Service Progress Note PATIENT NAME: Camila Harmon DATE OF SERVICE: August 12, 2020 TIME: 9:09 AM PATIENT IDENTITY VERIFICATION COMPLETED USING TWO (2) IDENTIFIERS: Name and Date of confirmed by patient verbally. FALL SCREENING: Has the patient had 2 falls in the last year or 1 fall with injury or currently using an Ambulatory Assistive Device (Walker, Cane, Wheelchair, Crutches, etc.)? No PATIENT GENDER DATA: Female. status: : No status: NO. PATIENT RELEVANT IMPLANT DATA REVIEWED: Not Applicable RADIOLOGY DEPARTMENT: General X-ray: Exam(s) Completed: Upper Extremity X-Ray(s): Shoulder, AP / TRUE AP / AXILLARY right PERIPHERAL IV DATA: Not applicable SIGNED BY: RT Jesus(R) August 12, 2020 9:09 AM documented in this encounter [facility] 02-12-2012 History of Past i llness Narrative Problem Noted Date Resolved Date Dizziness and giddiness 02/12/2012 02/06/20 17 Postsurgical percutaneous tr ansluminal coronary angioplasty status 03/22/2009 02/05/2017 Routine gynecological examination 07/27/2007 02/05/2017 Overview: [facility] documented as of this encounter (statuses as of 06/09/2021) [facility] History of Past illness Narrative* Problem Noted Date Resolved Date Dizziness and giddiness 02/12/2012 02/06/20 17 Postsurgical percutaneous tr ansluminal coronary angioplasty status 03/22/2009 02/05/2017 Routine gynecological examination 07/27/2007 02/05/2017 Overview: [facility] documented as of this encounter (statuses as of 07/02/2021) [facility] History of Past illness Narrative* Problem Noted Date Resolved Date Dizziness and giddiness 02/12/2012 02/06/20 17 Postsurgical percutaneous tr ansluminal coronary angioplasty status 03/22/2009 02/05/2017 Routine gynecological examination 07/27/2007 02/05/2017 Overview: [facility] documented as of this encounter (statuses as of 07/03/2021) [facility] History of Past illness Narrative* Problem Noted Date Resolved Date Dizziness and giddiness 02/12/2012 02/06/20 17 Postsurgical percutaneous tr ansluminal coronary angioplasty status 03/22/2009 02/05/2017 Routine gynecological examination 07/27/2007 02/05/2017 Overview: [facility] documented as of this encounter (statuses as of 07/07/2021) [facility] History of Past illness Narrative* Problem Noted Date Resolved Date Dizziness and giddiness 02/12/2012 02/06/20 17 Postsurgical percutaneous tr ansluminal coronary angioplasty status 03/22/2009 02/05/2017 Routine gynecological examination 07/27/2007 02/05/2017 Overview: [facility] documented as of this encounter (statuses as of 07/07/2021) [facility] History of Past illness Narrative* Problem Noted Date Resolved Date Dizziness and giddiness 02/12/2012 02/06/20 17 Postsurgical percutaneous tr ansluminal coronary angioplasty status 03/22/2009 02/05/2017 Routine gynecological examination 07/27/2007 02/05/2017 Overview: [facility] documented as of this encounter (statuses as of 08/21/2021) [facility] History of Past illness Narrative* Problem Noted Date Resolved Date Dizziness and giddiness 02/12/2012 02/06/20 17 Postsurgical percutaneous tr ansluminal coronary angioplasty status 03/22/2009 02/05/2017 Routine gynecological examination 07/27/2007 02/05/2017 Overview: [facility] documented as of this encounter (statuses as of 09/08/2021) [facility] History of Past illness Narrative* Problem Noted Date Resolved Date Dizziness and giddiness 02/12/2012 02/06/20 17 Postsurgical percutaneous tr ansluminal coronary angioplasty status 03/22/2009 02/05/2017 Routine gynecological examination 07/27/2007 02/05/2017 Overview: [facility] documented as of this encounter (statuses as of 10/31/2021) [facility] History of Past illness Narrative* Problem Noted Date Resolved Date Dizziness and giddiness 02/12/2012 02/06/20 17 Postsurgical percutaneous tr ansluminal coronary angioplasty status 03/22/2009 02/05/2017 Routine gynecological examination 07/27/2007 02/05/2017 Overview: [facility] documented as of this encounter (statuses as of 11/24/2021) [facility] History of Past illness Narrative* Problem Noted Date Resolved Date Dizziness and giddiness 02/12/2012 02/06/20 17 Postsurgical percutaneous tr ansluminal coronary angioplasty status 03/22/2009 02/05/2017 Routine gynecological examination 07/27/2007 02/05/2017 Overview: [facility] documented as of this encounter (statuses as of 12/25/2021) [facility] History of Past illness Narrative* Problem Noted Date Resolved Date Dizziness and giddiness 02/12/2012 02/06/20 17 Postsurgical percutaneous tr ansluminal coronary angioplasty status 03/22/2009 02/05/2017 Routine gynecological examination 07/27/2007 02/05/2017 Overview: [facility] documented as of this encounter (statuses as of 01/19/2022) [facility] History of Past illness Narrative* Problem Noted Date Resolved Date Dizziness and giddiness 02/12/2012 02/06/20 17 Postsurgical percutaneous tr ansluminal coronary angioplasty status 03/22/2009 02/05/2017 Routine gynecological examination 07/27/2007 02/05/2017 Overview: [facility] documented as of this encounter (statuses as of 01/22/2022) [facility] History of Past illness Narrative* Problem Noted Date Resolved Date Dizziness and giddiness 02/12/2012 02/06/20 17 Postsurgical percutaneous tr ansluminal coronary angioplasty status 03/22/2009 02/05/2017 Routine gynecological examination 07/27/2007 02/05/2017 Overview: [facility] documented as of this encounter (statuses as of 01/24/2022) [facility] History of Past illness Narrative* Problem Noted Date Resolved Date Dizziness and giddiness 02/12/2012 02/06/20 17 Postsurgical percutaneous tr ansluminal coronary angioplasty status 03/22/2009 02/05/2017 Routine gynecological examination 07/27/2007 02/05/2017 Overview: [facility] documented as of this encounter (statuses as of 01/24/2022) [facility] History of Past illness Narrative* Problem Noted Date Resolved Date Dizziness and giddiness 02/12/2012 02/06/20 17 Postsurgical percutaneous tr ansluminal coronary angioplasty status 03/22/2009 02/05/2017 Routine gynecological examination 07/27/2007 02/05/2017 Overview: [facility] documented as of this encounter (statuses as of 01/26/2022) [facility] History of Past illness Narrative* Problem Noted Date Resolved Date Dizziness and giddiness 02/12/2012 02/06/20 17 Postsurgical percutaneous tr ansluminal coronary angioplasty status 03/22/2009 02/05/2017 Routine gynecological examination 07/27/2007 02/05/2017 Overview: [facility] documented as of this encounter (statuses as of 01/27/2022) [facility] History of Past illness Narrative* Problem Noted Date Resolved Date Dizziness and giddiness 02/12/2012 02/06/20 17 Postsurgical percutaneous tr ansluminal coronary angioplasty status 03/22/2009 02/05/2017 Routine gynecological examination 07/27/2007 02/05/2017 Overview: [facility] documented as of this encounter (statuses as of 01/27/2022) [facility] History of Past illness Narrative* Problem Noted Date Resolved Date Dizziness and giddiness 02/12/2012 02/06/20 17 Postsurgical percutaneous tr ansluminal coronary angioplasty status 03/22/2009 02/05/2017 Routine gynecological examination 07/27/2007 02/05/2017 Overview: [facility] documented as of this encounter (statuses as of 02/12/2022) [facility] History of Past illness Narrative* Problem Noted Date Resolved Date Dizziness and giddiness 02/12/2012 02/06/20 17 Postsurgical percutaneous tr ansluminal coronary angioplasty status 03/22/2009 02/05/2017 Routine gynecological examination 07/27/2007 02/05/2017 Overview: [facility] documented as of this encounter (statuses as of 02/12/2022) [facility] History of Past illness Narrative* Problem Noted Date Resolved Date Dizziness and giddiness 02/12/2012 02/06/20 17 Postsurgical percutaneous tr ansluminal coronary angioplasty status 03/22/2009 02/05/2017 Routine gynecological examination 07/27/2007 02/05/2017 Overview: [facility] documented as of this encounter (statuses as of 02/12/2022) [facility] History of Past illness Narrative* Problem Noted Date Resolved Date Dizziness and giddiness 02/12/2012 02/06/20 17 Postsurgical percutaneous tr ansluminal coronary angioplasty status 03/22/2009 02/05/2017 Routine gynecological examination 07/27/2007 02/05/2017 Overview: [facility] documented as of this encounter (statuses as of 03/01/2022) [facility] History of Past illness Narrative* Problem Noted Date Resolved Date Dizziness and giddiness 02/12/2012 02/06/20 17 Postsurgical percutaneous tr ansluminal coronary angioplasty status 03/22/2009 02/05/2017 Routine gynecological examination 07/27/2007 02/05/2017 Overview: [facility] documented as of this encounter (statuses as of 03/12/2022) [facility] History of Past illness Narrative* Problem Noted Date Resolved Date Dizziness and giddiness 02/12/2012 02/06/20 17 Postsurgical percutaneous tr ansluminal coronary angioplasty status 03/22/2009 02/05/2017 Routine gynecological examination 07/27/2007 02/05/2017 Overview: [facility] documented as of this encounter (statuses as of 03/12/2022) [facility] History of Past illness Narrative* Problem Noted Date Resolved Date Dizziness and giddiness 02/12/2012 02/06/20 17 Postsurgical percutaneous tr ansluminal coronary angioplasty status 03/22/2009 02/05/2017 Routine gynecological examination 07/27/2007 02/05/2017 Overview: [facility] documented as of this encounter (statuses as of 04/14/2022) [facility] History of Past illness Narrative* Problem Noted Date Resolved Date Dizziness and giddiness 02/12/2012 02/06/20 17 Postsurgical percutaneous tr ansluminal coronary angioplasty status 03/22/2009 02/05/2017 Routine gynecological examination 07/27/2007 02/05/2017 Overview: [facility] documented as of this encounter (statuses as of 05/12/2022) [facility] History of Past illness Narrative* Problem Noted Date Resolved Date Dizziness and giddiness 02/12/2012 02/06/20 17 Postsurgical percutaneous tr ansluminal coronary angioplasty status 03/22/2009 02/05/2017 Routine gynecological examination 07/27/2007 02/05/2017 Overview: [facility] documented as of this encounter (statuses as of 05/14/2022) [facility] History of Past illness Narrative* Problem Noted Date Resolved Date Dizziness and giddiness 02/12/2012 02/06/20 17 Postsurgical percutaneous tr ansluminal coronary angioplasty status 03/22/2009 02/05/2017 Routine gynecological examination 07/27/2007 02/05/2017 Overview: [facility] documented as of this encounter (statuses as of 05/19/2022) [facility] History of Past illness Narrative* Problem Noted Date Resolved Date Dizziness and giddiness 02/12/2012 02/06/20 17 Postsurgical percutaneous tr ansluminal coronary angioplasty status 03/22/2009 02/05/2017 Routine gynecological examination 07/27/2007 02/05/2017 Overview: [facility] documented as of this encounter (statuses as of 06/19/2022) [facility] History of Past illness Narrative* Problem Noted Date Resolved Date Dizziness and giddiness 02/12/2012 02/06/20 17 Postsurgical percutaneous tr ansluminal coronary angioplasty status 03/22/2009 02/05/2017 Routine gynecological examination 07/27/2007 02/05/2017 Overview: [facility] documented as of this encounter (statuses as of 06/26/2022) [facility] History of Past illness Narrative* Problem Noted Date Resolved Date Dizziness and giddiness 02/12/2012 02/06/20 17 Postsurgical percutaneous tr ansluminal coronary angioplasty status 03/22/2009 02/05/2017 Routine gynecological examination 07/27/2007 02/05/2017 Overview: [facility] documented as of this encounter (statuses as of 08/25/2022) [facility] History of Past illness Narrative* Problem Noted Date Diagnosed Date Resolved Date Dizziness and giddiness 02/12/201203/2016 Postsurgical percutaneous tr ansluminal coronary angioplasty status 03/22/2009 02/05/2017 Routine gynecological examination 07/27/2007 02/05/2017 Overview: [facility] documented as of this encounter (statuses as of 09/17/2022) [facility] History of Past illness Narrative* Problem Noted Date Diagnosed Date Resolved Date Dizziness and giddiness 02/12/201203/2016 Postsurgical percutaneous tr ansluminal coronary angioplasty status 03/22/2009 02/05/2017 Routine gynecological examination 07/27/2007 02/05/2017 Overview: [facility] documented as of this encounter (statuses as of 09/18/2022) [facility] History of Past illness Narrative* Problem Noted Date Diagnosed Date Resolved Date Dizziness and giddiness 02/12/201203/2016 Postsurgical percutaneous tr ansluminal coronary angioplasty status 03/22/2009 02/05/2017 Routine gynecological examination 07/27/2007 02/05/2017 Overview: [facility] documented as of this encounter (statuses as of 10/06/2022) [facility] History of Past illness Narrative* Problem Noted Date Diagnosed Date Resolved Date Dizziness and giddiness 02/12/201203/2016 Postsurgical percutaneous tr ansluminal coronary angioplasty status 03/22/2009 02/05/2017 Routine gynecological examination 07/27/2007 02/05/2017 Overview: [facility] documented as of this encounter (statuses as of 10/22/2022) [facility] History of Past illness Narrative* Problem Noted Date Diagnosed Date Resolved Date Dizziness and giddiness 02/12/201203/2016 Postsurgical percutaneous tr ansluminal coronary angioplasty status 03/22/2009 02/05/2017 Routine gynecological examination 07/27/2007 02/05/2017 Overview: [facility] documented as of this encounter (statuses as of 10/22/2022) [facility] History of Past illness Narrative* Problem Noted Date Diagnosed Date Resolved Date Dizziness and giddiness 02/12/201203/2016 Postsurgical percutaneous tr ansluminal coronary angioplasty status 03/22/2009 02/05/2017 Routine gynecological examination 07/27/2007 02/05/2017 Overview: [facility] documented as of this encounter (statuses as of 11/24/2022) [place] [address]-07-2012 History of Past illness Narrative* Problem Noted Date Diagnosed Date Resolved Date Dizziness and giddiness 02/12/201203/2016 Postsurgical percutaneous tr ansluminal coronary angioplasty status 03/22/2009 02/05/2017 Routine gynecological examination 07/27/2007 02/05/2017 Overview: [facility] documented as of this encounter (statuses as of 11/25/2022) [facility] History of Past illness Narrative* Problem Noted Date Diagnosed Date Resolved Date Dizziness and giddiness 02/12/201203/2016 Postsurgical percutaneous tr ansluminal coronary angioplasty status 03/22/2009 02/05/2017 Routine gynecological examination 07/27/2007 02/05/2017 Overview: [facility] documented as of this encounter (statuses as of 11/25/2022) [facility] History of Past illness Narrative* Problem Noted Date Diagnosed Date Resolved Date Dizziness and giddiness 02/12/201203/2016 Postsurgical percutaneous tr ansluminal coronary angioplasty status 03/22/2009 02/05/2017 Routine gynecological examination 07/27/2007 02/05/2017 Overview: [facility] documented as of this encounter (statuses as of 11/30/2022) [facility] History of Past illness Narrative* Problem Noted Date Diagnosed Date Resolved Date Dizziness and giddiness 02/12/201203/2016 Postsurgical percutaneous tr ansluminal coronary angioplasty status 03/22/2009 02/05/2017 Routine gynecological examination 07/27/2007 02/05/2017 Overview: [facility] documented as of this encounter (statuses as of 12/04/2022) [facility] History of Past illness Narrative* Problem Noted Date Diagnosed Date Resolved Date Dizziness and giddiness 02/12/201203/2016 Postsurgical percutaneous tr ansluminal coronary angioplasty status 03/22/2009 02/05/2017 Routine gynecological examination 07/27/2007 02/05/2017 Overview: [facility] documented as of this encounter (statuses as of 01/10/2023) [facility] History of Past illness Narrative* Problem Noted Date Diagnosed Date Resolved Date Dizziness and giddiness 02/12/201203/2016 Postsurgical percutaneous tr ansluminal coronary angioplasty status 03/22/2009 02/05/2017 Routine gynecological examination 07/27/2007 02/05/2017 Overview: [facility] documented as of this encounter (statuses as of 01/20/2023) [facility] History of Past illness Narrative* Problem Noted Date Diagnosed Date Resolved Date Dizziness and giddiness 02/12/201203/2016 Postsurgical percutaneous tr ansluminal coronary angioplasty status 03/22/2009 02/05/2017 Routine gynecological examination 07/27/2007 02/05/2017 Overview: [facility] documented as of this encounter (statuses as of 01/22/2023) [facility] History of Past illness Narrative* Problem Noted Date Diagnosed Date Resolved Date Dizziness and giddiness 02/12/201203/2016 Postsurgical percutaneous tr ansluminal coronary angioplasty status 03/22/2009 02/05/2017 Routine gynecological examination 07/27/2007 02/05/2017 Overview: [facility] documented as of this encounter (statuses as of 01/29/2023) [facility]12-[facility] History of Past illness Narrative* Problem Noted Date Diagnosed Date Resolved Date Dizziness and giddiness 02/12/201203/2016 Postsurgical percutaneous tr ansluminal coronary angioplasty status 03/22/2009 02/05/2017 Routine gynecological examination 07/27/2007 02/05/2017 Overview: [facility] documented as of this encounter (statuses as of 04/15/2023) [facility]2012 History of Past illness Narrative* Problem Noted Date Diagnosed Date Resolved Date Dizziness and giddiness 02/12/201203/2016 Postsurgical percutaneous tr ansluminal coronary angioplasty status 03/22/2009 02/05/2017 Routine gynecological examination 07/27/2007 02/05/2017 Overview: [facility] documented as of this encounter (statuses as of 04/15/2023) [facility] History of Past illness Narrative* Problem Noted Date Diagnosed Date Resolved Date Dizziness and giddiness 02/12/201203/2016 Postsurgical percutaneous tr ansluminal coronary angioplasty status 03/22/2009 02/05/2017 Routine gynecological examination 07/27/2007 02/05/2017 Overview: [facility] documented as of this encounter (statuses as of 04/16/2023) [facility] History of Past illness Narrative* Problem Noted Date Diagnosed Date Resolved Date Dizziness and giddiness 02/12/201203/2016 Postsurgical percutaneous tr ansluminal coronary angioplasty status 03/22/2009 02/05/2017 Routine gynecological examination 07/27/2007 02/05/2017 Overview: [facility] documented as of this encounter (statuses as of 04/19/2023) [facility] History of Past illness Narrative* Problem Noted Date Diagnosed Date Resolved Date Dizziness and giddiness 02/12/201203/2016 Postsurgical percutaneous tr ansluminal coronary angioplasty status 03/22/2009 02/05/2017 Routine gynecological examination 07/27/2007 02/05/2017 Overview: [facility] documented as of this encounter (statuses as of 04/20/2023) [facility] History of Past illness Narrative* Problem Noted Date Diagnosed Date Resolved Date Dizziness and giddiness 02/12/201203/2016 Postsurgical percutaneous tr ansluminal coronary angioplasty status 03/22/2009 02/05/2017 Routine gynecological examination 07/27/2007 02/05/2017 Overview: [facility] documented as of this encounter (statuses as of 04/21/2023) [facility] History of Past illness Narrative* Problem Noted Date Diagnosed Date Resolved Date Dizziness and giddiness 02/12/201203/2016 Postsurgical percutaneous tr ansluminal coronary angioplasty status 03/22/2009 02/05/2017 Routine gynecological examination 07/27/2007 02/05/2017 Overview: [facility] documented as of this encounter (statuses as of 04/23/2023) [facility] History of Past illness Narrative* Problem Noted Date Diagnosed Date Resolved Date Dizziness and giddiness 02/12/201203/2016 Postsurgical percutaneous tr ansluminal coronary angioplasty status 03/22/2009 02/05/2017 Routine gynecological examination 07/27/2007 02/05/2017 Overview: [facility] documented as of this encounter (statuses as of 04/26/2023) [facility] History of Past illness Narrative* Problem Noted Date Diagnosed Date Resolved Date Dizziness and giddiness 02/12/201203/2016 Postsurgical percutaneous tr ansluminal coronary angioplasty status 03/22/2009 02/05/2017 Routine gynecological examination 07/27/2007 02/05/2017 Overview: [facility] documented as of this encounter (statuses as of 04/27/2023) [facility] History of Past illness Narrative* Problem Noted Date Diagnosed Date Resolved Date Dizziness and giddiness 02/12/201203/2016 Postsurgical percutaneous tr ansluminal coronary angioplasty status 03/22/2009 02/05/2017 Routine gynecological examination 07/27/2007 02/05/2017 Overview: [facility] documented as of this encounter (statuses as of 05/07/2023) [facility] History of Past illness Narrative* Problem Noted Date Diagnosed Date Resolved Date Dizziness and giddiness 02/12/201203/2016 Postsurgical percutaneous tr ansluminal coronary angioplasty status 03/22/2009 02/05/2017 Routine gynecological examination 07/27/2007 02/05/2017 Overview: [facility] documented as of this encounter (statuses as of 05/11/2023) [facility] History of Past illness Narrative* Problem Noted Date Diagnosed Date Resolved Date Dizziness and giddiness 02/12/201203/2016 Postsurgical percutaneous tr ansluminal coronary angioplasty status 03/22/2009 02/05/2017 Routine gynecological examination 07/27/2007 02/05/2017 Overview: [facility] documented as of this encounter (statuses as of 05/12/2023) [facility] History of Past illness Narrative* Problem Noted Date Diagnosed Date Resolved Date Dizziness and giddiness 02/12/201203/2016 Postsurgical percutaneous tr ansluminal coronary angioplasty status 03/22/2009 02/05/2017 Routine gynecological examination 07/27/2007 02/05/2017 Overview: [facility] documented as of this encounter (statuses as of 05/12/2023) [facility] History of Past illness Narrative* Problem Noted Date Diagnosed Date Resolved Date Dizziness and giddiness 02/12/201203/2016 Postsurgical percutaneous tr ansluminal coronary angioplasty status 03/22/2009 02/05/2017 Routine gynecological examination 07/27/2007 02/05/2017 Overview: [facility] documented as of this encounter (statuses as of 05/12/2023) [facility] History of Past illness Narrative* Problem Noted Date Diagnosed Date Resolved Date Dizziness and giddiness 02/12/201203/2016 Postsurgical percutaneous tr ansluminal coronary angioplasty status 03/22/2009 02/05/2017 Routine gynecological examination 07/27/2007 02/05/2017 Overview: [facility] documented as of this encounter (statuses as of 05/13/2023) [facility] History of Past illness Narrative* Problem Noted Date Diagnosed Date Resolved Date Dizziness and giddiness 02/12/201203/2016 Postsurgical percutaneous tr ansluminal coronary angioplasty status 03/22/2009 02/05/2017 Routine gynecological examination 07/27/2007 02/05/2017 Overview: [facility] documented as of this encounter (statuses as of 05/17/2023) [facility] History of Past illness Narrative* Problem Noted Date Diagnosed Date Resolved Date Dizziness and giddiness 02/12/201203/2016 Postsurgical percutaneous tr ansluminal coronary angioplasty status 03/22/2009 02/05/2017 Routine gynecological examination 07/27/2007 02/05/2017 Overview: [facility] documented as of this encounter (statuses as of 05/19/2023) [facility] History of Past illness Narrative* Problem Noted Date Diagnosed Date Resolved Date Dizziness and giddiness 02/12/201203/2016 Postsurgical percutaneous tr ansluminal coronary angioplasty status 03/22/2009 02/05/2017 Routine gynecological examination 07/27/2007 02/05/2017 Overview: [facility] documented as of this encounter (statuses as of 06/01/2023) [facility] History of Past illness Narrative* Problem Noted Date Diagnosed Date Resolved Date Dizziness and giddiness 02/12/201203/2016 Postsurgical percutaneous tr ansluminal coronary angioplasty status 03/22/2009 02/05/2017 Routine gynecological examination 07/27/2007 02/05/2017 Overview: [facility] documented as of this encounter (statuses as of 06/11/2023) [facility] History of Past illness Narrative* Problem Noted Date Diagnosed Date Resolved Date Dizziness and giddiness 02/12/201203/2016 Postsurgical percutaneous tr ansluminal coronary angioplasty status 03/22/2009 02/05/2017 Routine gynecological examination 07/27/2007 02/05/2017 Overview: [facility] documented as of this encounter (statuses as of 06/18/2023) [facility] Diagnosis Need for vaccination- Primary Need for prophylactic vaccination and inoculation against unspecified single disease [facility] Diagnosis Diabetes mellitus, non-insulin dependent (NIDDM or type II) (HCC)- Primary [facility] Diagnosis Diabetes mellitus, non-insulin dependent (NIDDM or type II) (HCC)- Primary Medication management Encounter for long-term (current) use of other medications [facility] Diagnosis Obesity, Class II, BMI 35-39.9- Primary Obesity, unspecified Diabetes mellitus, non-insulin dependent (NIDDM or type II) (HCC) Dietary counseling Dietary surveillance and counseling [facility] Diagnosis Acute pain of left shoulder- Primary [facility] Encounter for screening mammogram for breast cancer [facility] Anxiety- Primary Anxiety state, unspecified Vertigo Dizziness and giddiness Moderate episode of recurrent major depressive disorder (HCC) Diabetes mellitus, non-insulin dependent (NIDDM or type II) (HCC) Hypomagnesemia Disorders of magnesium metabolism Pure hypercholesterolemia Hypertension, essential Unspecified essential hypertension Panic attack Panic disorder without agoraphobia [facility] Diagnosis Diabetes mellitus, non-insulin dependent (NIDDM or type II) (HCC) [facility] Diagnosis Chest pain, unspecified type- Primary Atherosclerosis of [place] coronary artery of [place] heart without angina pectoris Pure hypercholesterolemia Hypertension, essential Unspecified essential hypertension Obstructive sleep apnea Obstructive sleep apnea (adult) (pediatric) Shortness of breath Diabetes mellitus, non-insulin dependent (NIDDM or type II) (HCC) [facility] Chest pain, unspecified type Atherosclerosis of [place] coronary artery of [place] heart without angina pectoris Pure hypercholesterolemia Hypertension, essential Unspecified essential hypertension Obstructive sleep apnea Obstructive sleep apnea (adult) (pediatric) Shortness of breath Diabetes mellitus, non-insulin dependent (NIDDM or type II) (HCC) [facility] Atherosclerosis of [place] coronary artery of [place] heart without angina pectoris- Primary Abnormal stress test Other nonspecific abnormal cardiovascular system function study Chest pain, unspecified type Hypertension, essential Unspecified essential hypertension Mixed hyperlipidemia Obstructive sleep apnea Obstructive sleep apnea (adult) (pediatric) Dyspnea on exertion Other dyspnea and respiratory abnormality Abnormal stress test Other nonspecific abnormal cardiovascular system function study [facility] Diagnosis Atherosclerosis of [place] coronary artery of [place] heart with other form of angina pectoris (HCC)- Primary Other chest pain Shortness of breath Abnormal stress test Other nonspecific abnormal cardiovascular system function study Coronary atherosclerosis Coronary atherosclerosis of unspecified type of vessel, [place] or graft Other chest pain Shortness of breath [facility] Diagnosis Anxiety- Primary Anxiety state, unspecified Moderate episode of recurrent major depressive disorder (HCC) Controlled type 2 diabetes mellitus without complication, without long-term current use of insulin (HCC) Hypertension, essential Unspecified essential hypertension Pure hypercholesterolemia Hypomagnesemia Disorders of magnesium metabolism Vertigo Dizziness and giddiness Right foot injury, sequela [facility] Diagnosis Moderate episode of recurrent major depressive disorder (HCC)- Primary Anxiety Anxiety state, unspecified [facility] Diagnosis Chest pain, unspecified type- Primary Atherosclerosis of [place] coronary artery of [place] heart without angina pectoris Abnormal stress test Other nonspecific abnormal cardiovascular system function study Hypertension, essential Unspecified essential hypertension Mixed hyperlipidemia Obstructive sleep apnea Obstructive sleep apnea (adult) (pediatric) Dyspnea on exertion Other dyspnea and respiratory abnormality Diabetes mellitus, non-insulin dependent (NIDDM or type II) (HCC) [facility] Diabetes mellitus, non-insulin dependent (NIDDM or type II) (HCC)- Primary Hypertension, essential Unspecified essential hypertension Anxiety Anxiety state, unspecified Moderate episode of recurrent major depressive disorder (HCC) Atherosclerosis of [place] coronary artery of [place] heart without angina pectoris URI, acute Acute upper respiratory infections of unspecified site [facility] Diagnosis Diabetes mellitus, non-insulin dependent (NIDDM or type II) (HCC)- Primary [facility] Diagnosis Moderate episode of recurrent major depressive disorder (HCC)- Primary Anxiety Anxiety state, unspecified [facility] Anxiety Anxiety state, unspecified Uncontrolled type 2 diabetes mellitus with hyperglycemia (HCC) [facility] Diagnosis Uncontrolled type 2 diabetes mellitus with hyperglycemia (HCC)- Primary Anxiety Anxiety state, unspecified Moderate episode of recurrent major depressive disorder (HCC) Hypertension, essential Unspecified essential hypertension Pure hypercholesterolemia Hypomagnesemia Disorders of magnesium metabolism GERD without esophagitis Esophageal reflux Nausea Nausea alone Vertigo Dizziness and giddiness Ischemic stroke (HCC) Screening for colon cancer Special screening for malignant neoplasms, colon [facility] Diagnosis Abdominal pain, unspecified abdominal location- Primary [facility] Diagnosis Chest pain, unspecified type- Primary Atherosclerosis of [place] coronary artery of [place] heart without angina pectoris Abnormal stress test Other nonspecific abnormal cardiovascular system function study Hypertension, essential Unspecified essential hypertension Mixed hyperlipidemia Obstructive sleep apnea Obstructive sleep apnea (adult) (pediatric) Dyspnea on exertion Other dyspnea and respiratory abnormality Diabetes mellitus, non-insulin dependent (NIDDM or type II) (HCC) [facility] Diagnosis Sciatica, right side [facility] Diagnosis Dysuria- Primary Uncontrolled type 2 diabetes mellitus with hyperglycemia (HCC) Hypertension, essential Unspecified essential hypertension Anxiety Anxiety state, unspecified Moderate episode of recurrent major depressive disorder (HCC) GERD without esophagitis Esophageal reflux [facility] Diagnosis Controlled type 2 diabetes mellitus without complication, without long-term current use of insulin (HCC) Hypertension, essential Unspecified essential hypertension [facility] Diagnosis Controlled type 2 diabetes mellitus without complication, without long-term current use of insulin (HCC)- Primary [facility] Diagnosis Abdominal pain, unspecified abdominal location [facility] Diagnosis Bad odor of urine- Primary Other nonspecific finding on examination of urine Urinary urgency Urgency of urination Vaginal discharge Leukorrhea, not specified as infective [facility] Anxiety Anxiety state, unspecified Moderate episode of recurrent major depressive disorder (HCC) [facility] Diagnosis Hospital discharge follow-up- Primary Other follow-up examination Poorly controlled diabetes mellitus (HCC) Type II or unspecified type diabetes mellitus without mention of complication, not stated as uncontrolled Anxiety with depression documented in this encounter [facility] note* Diagnosis Pure hypercholesterolemia Hypertension, essential Unspecified essential hypertension Controlled type 2 diabetes mellitus without complication, without long-term current use of insulin (HCC) documented in this encounter [facility] note* Diagnosis Hypertension, essential Unspecified essential hypertension documented in this encounter [facility] note* Diagnosis Viral syndrome- Primary Unspecified viral infection, in conditions classified elsewhere and of unspecified site documented in this encounter [facility] note* Diagnosis Poorly controlled type 2 diabetes mellitus (HCC)- Primary Type II or unspecified type diabetes mellitus without mention of complication, not stated as uncontrolled documented in this encounter [facility] note* Diagnosis Diabetes mellitus, non-insulin dependent (NIDDM or type II) (HCC)- Primary [facility] Diagnosis NO SHOW- Primary documented in this encounter [facility] note* Diagnosis Viral gastroenteritis- Primary Intestinal infection due to other organism, not elsewhere classified Nausea Nausea alone Muscle strain Unspecified site of sprain and strain Poorly controlled diabetes mellitus (HCC) Type II or unspecified type diabetes mellitus without mention of complication, not stated as uncontrolled Hypertension, essential Unspecified essential hypertension Pure hypercholesterolemia Anxiety with depression documented in this encounter [facility] note* Diagnosis Anxiety Anxiety state, unspecified [facility]* Diagnosis Encounter for screening mammogram for breast cancer [facility]* Diagnosis Poorly controlled type 2 diabetes mellitus (HCC)- Primary Type II or unspecified type diabetes mellitus without mention of complication, not stated as uncontrolled Poorly controlled diabetes mellitus (HCC) Type II or unspecified type diabetes mellitus without mention of complication, not stated as uncontrolled documented in this encounter [facility] note* Diagnosis Anxiety Anxiety state, unspecified Uncontrolled type 2 diabetes mellitus with hyperglycemia (HCC) documented in this encounter [facility] note* Diagnosis Diabetes mellitus, non-insulin dependent (NIDDM or type II) (HCC)- Primary Anxiety with depression Hyperlipidemia, unspecified hyperlipidemia type High triglycerides Pure hyperglyceridemia documented in this encounter [facility] note* Diagnosis Anxiety Anxiety state, unspecified Moderate episode of recurrent major depressive disorder (HCC) GERD without esophagitis Esophageal reflux [facility] Diagnosis Vaginal discharge- Primary Leukorrhea, not specified as infective Dysuria documented in this encounter [facility] note* Diagnosis Vaginal yeast infection- Primary Candidiasis of vulva and vagina Vaginal bleeding Other specified noninflammatory disorder of vagina [facility] Diagnosis Acute pain of left shoulder documented in this encounter [facility] note* Diagnosis Cough Pain of right side of body Generalized pain documented in this encounter [facility] note* Diagnosis Coronary artery disease due to lipid rich plaque- Primary Mixed hyperlipidemia Hypertriglyceridemia Pure hyperglyceridemia SOB (shortness of breath) Shortness of breath documented in this encounter [facility] note* Diagnosis Acute pain of right shoulder Chronic right shoulder pain Pain in joint, shoulder region [facility] Diagnosis NO SHOW- Primary documented in this encounter [facility] note* Diagnosis Coronary artery disease due to lipid rich plaque SOB (shortness of breath) Shortness of breath documented in this encounter [facility] note* Diagnosis Controlled type 2 diabetes mellitus without complication, without long-term current use of insulin ([facility]) documented in this encounter [facility] note* Diagnosis Coronary artery disease due to lipid rich plaque SOB (shortness of breath) Shortness of breath [facility] Diagnosis Anxiety Anxiety state, unspecified [facility] Diagnosis Pure hypercholesterolemia Anxiety Anxiety state, unspecified [facility] Diagnosis Vertigo Dizziness and giddiness [facility] Diagnosis Ascending aorta dilatation (HCC)- Primary Thoracic aortic ectasia Coronary artery disease due to lipid rich plaque [facility] Diagnosis Hypertension, essential Unspecified essential hypertension GERD without esophagitis Esophageal reflux Anxiety with depression Anxiety Anxiety state, unspecified Moderate episode of recurrent major depressive disorder (HCC) documented in this encounter [facility] note* Diagnosis Diabetes mellitus, non-insulin dependent (NIDDM or type II) (HCC)- Primary [facility] Diagnosis Diabetes mellitus, non-insulin dependent (NIDDM or type II) (HCC)- Primary Anxiety Anxiety state, unspecified Sciatica, right side Moderate episode of recurrent major depressive disorder (HCC) Hypertension, essential Unspecified essential hypertension Obesity, Class II, BMI 35-39.9 Obesity, unspecified Myalgia Mylagia and myositis, unspecified Dry mouth Disturbance of salivary secretion documented in this encounter [facility] note* Diagnosis Herpes zoster without complication- Primary Herpes zoster without mention of complication Sciatica, right side documented in this encounter [facility] note* Diagnosis Herpes zoster without complication- Primary Herpes zoster without mention of complication Itching Unspecified pruritic disorder documented in this encounter [facility] note* Diagnosis Encounter for screening mammogram for breast cancer documented in this encounter [facility] note* Diagnosis Poorly controlled diabetes mellitus (HCC) Type II or unspecified type diabetes mellitus without mention of complication, not stated as uncontrolled Diabetes mellitus, non-insulin dependent (NIDDM or type II) (HCC)- Primary documented in this encounter [facility] note* Diagnosis Vaginal itching Pruritus of genital organs Diabetes mellitus, non-insulin dependent (NIDDM or type II) (HCC)- Primary documented in this encounter [facility] note* Diagnosis Controlled type 2 diabetes mellitus without complication, without long-term current use of insulin (HCC)- Primary documented in this encounter [facility] note* Diagnosis Anxiety Anxiety state, unspecified documented in this encounter [facility] for referral (narrative)* Diagnostic Procedure Only (Routine) - Closed Specialty Diagnoses / Procedures Referred By Asha farr Referred To Contact XR IMAGING Diagnoses Acute pain of left shoulder Procedures XR SHOULDER GENERAL 3V OR MORE AP/TRUE AP/OTHER LEFT RADEX SHOULDER COMPLETE MINIMUM 2 VIEWS Aileen Quintanilla APRN.CNP [address] [place] [address] Xr Imaging Referral ID Status Reason Start Date Expiration Date V isits Requested Visits Authorized [id number] Closed Auto-Generate d Referral 08/21/2021 09/20/2022 1 1 [facility] for referral (narrative)* Diagnostic Procedure Only (Routine) - Pending Review Specialty Diagnoses / Procedures Referred By Asha farr Referred To Contact BR IMAGING Diagnoses Encounter for screening mammogram for breast cancer Procedures OSIEL SCREENING SCREENING MAMMOGRAPHY BI 2-VIEW BREAST INC CAD Elderbrock, Emily D, MD [address] [place] [address] Br Imaging [address] [place] [address] Referral ID Status Reason Start Date Expiration Date Visits Requested Visits Authorized [id number] Pending Review Auto-Generat ed Referral 09/03/2021 10/03/2022 1 1 [facility] for referral (narrative)* Diagnostic Procedure Only (Routine) - Closed Specialty Diagnoses / Procedures Referred By Contac t Referred To Contact MOLECULAR & FUNCTIONAL IMAGING Diagnoses Chest pain, unspecified type Atherosclerosis of soboba coronary artery of soboba heart without angina pectoris Pure hypercholesterolemia Hypertension, essential Obstructive sleep apnea Shortness of breath Diabetes mellitus, non-insulin dependent (NIDDM or type II) (HCC) Procedures NM CARDIAC PERF STRESS/EXERCISE MYOCARDIAL SPECT MULTIPLE STUDIES Abelardo Nash, [address] [place] [address] [facility] [address] [place] [address] Referral ID Status Reason Start Date Expiration Date V isits Requested Visits Authorized [id number] Closed Auto-Generate d Referral 12/25/2021 02/08/2022 1 1 [facility] for referral (narrative)* Diagnostic Procedure Only (Urgent) - Authorized Specialty Diagnoses / Procedures Referred By Contac t Referred To Contact US IMAGING Diagnoses Abdominal pain, unspecified abdominal location Procedures US ABD RIGHT UPPER QUADRANT US ABDOMINAL REAL TIME W/IMAGE LIMITED Aileen Quintanilla APRN.CNP [address] [place] [address] Us Imaging Referral ID Status Reason Start Date Expiration Date Visits Requested Visits Authorized [id number] Authorized Auto-Generat ed Referral 09/17/2022 10/17/2023 1 1 [facility] for referral (narrative)* Diagnostic Procedure Only (Urgent) - Closed Specialty Diagnoses / Procedures Referred By Contac t Referred To Contact US IMAGING Diagnoses Abdominal pain, unspecified abdominal location Procedures US ABD RIGHT UPPER QUADRANT US ABDOMINAL REAL TIME W/IMAGE LIMITED Aileen Quintanilla APRN.CNP [address] [place] [address] [place] [address] Referral ID Status Reason Start Date Expiration Date V isits Requested Visits Authorized [id number] Closed Auto-Generate d Referral 09/17/2022 10/17/2023 1 1 [facility] for referral (narrative)* Diagnostic Procedure Only (Routine) - Pending Review Specialty Diagnoses / Procedures Referred By Asha t Referred To Contact BR IMAGING Diagnoses Encounter for screening mammogram for breast cancer Procedures OSIEL SCREENING SCREENING MAMMOGRAPHY BI 2-VIEW BREAST INC CAD Emily Wang MD [address] [place] [address] Br Imaging [address] [place] [address] Referral ID Status Reason Start Date Expiration Date Visits Requested Visits Authorized [id number] Pending Review Auto-Generat ed Referral 07/14/2023 08/12/2024 1 1 [facility] for referral (narrative)* Diagnostic Procedure Only (Routine) - Authorized Specialty Diagnoses / Procedures Referred By Contac t Referred To Contact US IMAGING Diagnoses Vaginal bleeding Procedures US FEMALE PELVIS TRANSVAG US TRANSVAGINAL Aileen Quintanilla APRN.SHIPPING ORDER CLERK [address] [place] [address] [place] [address] Referral ID Status Reason Start Date Expiration Date Visits Requested Visits Authorized [id number] Authorized Auto-Generat ed Referral 11/10/2023 12/09/2024 1 1 * Diagnostic Procedure Only (Routine) - New Request Specialty Diagnoses / Procedures Referred By Dianaac t Referred To Contact US IMAGING Diagnoses Vaginal bleeding Procedures US FEMALE PELVIS TRANSABD LTD US PELVIC NONOBSTETRIC IMAGE DCMTN LIMITED/F/U Aileen Quintanilla APRN.SHIPPING ORDER CLERK [address] [place] [address] [place] [address] Referral ID Status Reason Start Date Expiration Date Visits Requested Visits Authorized [id number] New Request Auto-Generat ed Referral 11/10/2023 12/09/2024 1 1 [facility] for referral (narrative)* Diagnostic Procedure Only (Routine) - Closed Specialty Diagnoses / Procedures Referred By Asha t Referred To Contact XR IMAGING Diagnoses Acute pain of left shoulder Procedures XR SHOULDER GENERAL 3V OR MORE AP/TRUE AP/OTHER LEFT RADEX SHOULDER COMPLETE MINIMUM 2 VIEWS Aileen Quintanilla APRN.SHIPPING ORDER CLERK [address] [place] [address] [place] [address] Referral ID Status Reason Start Date Expiration Date V isits Requested Visits Authorized [id number] Closed Auto-Generate d Referral 08/21/2021 09/20/2022 1 1 [facility] for referral (narrative)* Outpatient Procedure (Routine) - Authorized Specialty Diagnoses / Procedures Referred By Contac t Referred To Contact [facility] Diagnoses Coronary artery disease due to lipid rich plaque SOB (shortness of breath) Procedures ECHO ECHO TTHRC R-T 2D W/WOM-MODE COMPL SPEC&COLR D Hawa Padron MD [address] [place] [address] [facility] [address] [place] [address] Referral ID Status Reason Start Date Expiration Date Visits Requested Visits Authorized [id number] Authorized Auto-Generat ed Referral 03/07/2024 1 1 * Diagnostic Procedure Only (Routine) - Authorized Specialty Diagnoses / Procedures Referred By Contac t Referred To Contact MOLECULAR & FUNCTIONAL IMAGING Diagnoses Coronary artery disease due to lipid rich plaque SOB (shortness of breath) Procedures NM CARDIAC PERF STRESS/PHARM MYOCARDIAL SPECT MULTIPLE STUDIES Hawa Padron MD [address] [place] [address] [facility] [address] [place] [address] Referral ID Status Reason Start Date Expiration Date Visits Requested Visits Authorized [id number] Authorized Auto-Generat ed Referral 03/07/2024 2 2 [facility] for referral (narrative)* Diagnostic Procedure Only (Routine) - Closed Specialty Diagnoses / Procedures Referred By Contac t Referred To Contact MOLECULAR & FUNCTIONAL IMAGING Diagnoses Coronary artery disease due to lipid rich plaque SOB (shortness of breath) Procedures NM CARDIAC PERF STRESS/PHARM MYOCARDIAL SPECT MULTIPLE STUDIES Hawa Padron MD [address] [place] [address] [facility] [address] [place] [address] Referral ID Status Reason Start Date Expiration Date V isits Requested Visits Authorized [id number] Closed Auto-Generate d Referral 12/23/2023 03/07/2024 2 2 [facility] for referral (narrative)* Outpatient Procedure (Routine) - Closed Specialty Diagnoses / Procedures Referred By Contac t Referred To Contact [facility] Diagnoses Coronary artery disease due to lipid rich plaque SOB (shortness of breath) Procedures ECHO ECHO TTHRC R-T 2D W/WOM-MODE COMPL SPEC&COLR D Hawa Padron MD [address] [place] [address] [facility] [address] [place] [address] Referral ID Status Reason Start Date Expiration Date V isits Requested Visits Authorized [id number] Closed Auto-Generate d Referral 12/23/2023 03/07/2024 1 1 [facility] for visit Narrative* Diagnostic Procedure Only (Routine) - Closed Specialty Diagnoses / Procedures Referred By Contac t Referred To Contact MOLECULAR & FUNCTIONAL IMAGING Diagnoses Chest pain, unspecified type Atherosclerosis of soboba coronary artery of soboba heart without angina pectoris Pure hypercholesterolemia Hypertension, essential Obstructive sleep apnea Shortness of breath Diabetes mellitus, non-insulin dependent (NIDDM or type II) ([facility]) Procedures NM CARDIAC PERF STRESS/EXERCISE MYOCARDIAL SPECT MULTIPLE STUDIES Abelardo Nash DO [address] [place] [address] [facility] [address] [place] [address] Referral ID Status Reason Start Date Expiration Date V isits Requested Visits Authorized [id number] Closed Auto-Generate d Referral 12/25/2021 02/08/2022 1 1 [facility] for visit Narrative* Diagnostic Procedure Only (Routine) - Closed Specialty Diagnoses / Procedures Referred By Contac t Referred To Contact XR IMAGING Diagnoses Acute pain of left shoulder Procedures XR SHOULDER GENERAL 3V OR MORE AP/TRUE AP/OTHER LEFT RADEX SHOULDER COMPLETE MINIMUM 2 VIEWS Aileen Quintanilla, NICK.SHIPPING ORDER CLERK [address] [place] [address] [place] [address] Referral ID Status Reason Start Date Expiration Date V isits Requested Visits Authorized [id number] Closed Auto-Generate d Referral 08/21/2021 09/20/2022 1 1 [facility] for visit Narrative* Diagnostic Procedure Only (Routine) - Closed Specialty Diagnoses / Procedures Referred By Contac t Referred To Contact MOLECULAR & FUNCTIONAL IMAGING Diagnoses Coronary artery disease due to lipid rich plaque SOB (shortness of breath) Procedures NM CARDIAC PERF STRESS/PHARM MYOCARDIAL SPECT MULTIPLE STUDIES Hawa Padron MD [address] [place] [address] [facility] [address] [place] [id number] Referral ID Status Reason Start Date Expiration Date V isits Requested Visits Authorized [id number] Closed Auto-Generate d Referral 12/23/2023 03/07/2024 2 [facility] Procedure (Routine) - Closed Specialty Diagnoses / Procedures Referred By Contac t Referred To Contact [facility] Diagnoses Coronary artery disease due to lipid rich plaque SOB (shortness of breath) Procedures ECHO ECHO TTHRC R-T 2D W/WOM-MODE COMPL SPEC&COLR D Hawa Padron MD [address] [place] [address] [facility] [address] [place] [address] Referral ID Status Reason Start Date Expiration Date V isits Requested Visits Authorized [id number] Closed Auto-Generate d Referral 12/23/2023 03/07/2024 1 1 [facility] Summary Purpose Family History No Family History Records FoundNo Family History Records FoundNo Family History Records FoundNo Family History Records FoundNo Family History Records Found Advance Directives Documents on File Type Date Recorded Patient Live In Companion Expl anation Advance Directive(s) Advance Directive(s) 04/17/2021 8:04 PM Advance Directive(s) 11/26/2020 5:59 PM Advance Directive(s) 07/10/2020 6:35 PM Advance Directive(s) 03/18/2020 9:54 AM Advance Directive(s) 06/19/2019 3:36 PM Advance Directive(s) 02/12/2019 8:35 PM Advance Directive(s) 03/09/2018 10:06 PM Advance Directive(s) 03/05/2017 8:04 AM Advance Directive(s) 01/09/2017 4:21 PM Advance Directive(s) 08/17/2016 1:52 PM Documents on File Type Date Recorded Patient Live In Companion Expl anation Advance Directive(s) Advance Directive(s) 04/17/2021 8:04 PM Advance Directive(s) 11/26/2020 5:59 PM Advance Directive(s) 07/10/2020 6:35 PM Advance Directive(s) 03/18/2020 9:54 AM Advance Directive(s) 06/19/2019 3:36 PM Advance Directive(s) 02/12/2019 8:35 PM Advance Directive(s) 03/09/2018 10:06 PM Advance Directive(s) 03/05/2017 8:04 AM Advance Directive(s) 01/09/2017 4:21 PM Advance Directive(s) 08/17/2016 1:52 PM Reason for Referral Specialty Diagnoses / Procedures Referred By Contac t Referred To Contact Diagnoses Obstructive sleep apnea Procedures CONSULT TO SLEEP MEDICINE - ADULT OFFICE/OUTPATIENT [facility] 60-74 MINUTES Abelardo Nash, DO [address] [address] Referral ID Status Reason Start Date Expiration Date Visits Requested Visits Authorized [id number] Authorized PCP Requested Referral 2 12/25/2022 1 1 Specialty Diagnoses / Procedures Referred By Contac t Referred To Contact MOLECULAR & FUNCTIONAL IMAGING Diagnoses Chest pain, unspecified type Atherosclerosis of soboba coronary artery of soboba heart without angina pectoris Pure hypercholesterolemia Hypertension, essential Obstructive sleep apnea Shortness of breath Diabetes mellitus, non-insulin dependent (NIDDM or type II) (HCC) Procedures NM CARDIAC PERF STRESS/EXERCISE MYOCARDIAL SPECT MULTIPLE STUDIES Abelardo Nash, DO [address] [address] Molecular [facility] [address] [place] [address] Referral ID Status Reason Start Date Expiration Date Visits Requested Visits Authorized [id number] Authorized Auto-Generat ed Referral 2 02/08/2022 1 1 Specialty Diagnoses / Procedures Referred By Contac t Referred To Contact Diagnoses Anxiety Moderate episode of recurrent major depressive disorder (HCC) Procedures CONSULT TO PSYCHIATRY OFFICE/OUTPATIENT [facility] 60-74 MINUTES Aileen Quintanilla, [place].[facility] [address] [place] [address] Referral ID Status Reason Start Date Expiration Date Visits Requested Visits Authorized [id number] Pending Review PCP Requested Referral 03/10/2022 03/10/2023 1 1 Specialty Diagnoses / Procedures Referred By Contac t Referred To Contact General Surgery Diagnoses Screening for colon cancer Procedures CONSULT TO GENERAL SURGERY OFFICE/OUTPATIENT [facility] 60-74 MINUTES Emily Wang MD [address] [place] [address] Referral ID Status Reason Start Date Expiration Date Visits Requested Visits Authorized [id number] Pending Review PCP Requested Referral 08/25/2022 08/25/2023 1 1 Specialty Diagnoses / Procedures Referred By Contac t Referred To Contact Diagnoses Controlled type 2 diabetes mellitus without complication, without long-term current use of insulin (HCC) Aileen Quintanilla, NICK.SHIPPING ORDER CLERK [address] [place] [address] Referral ID Status Reason Start Date Expiration Date Visits Re quested Visits Authorized [id number] Closed 1 1 Specialty Diagnoses / Procedures Referred By Contac t Referred To Contact Diagnoses Anxiety with depression Procedures CONSULT TO PSYCHIATRY OFFICE/OUTPATIENT [facility] 60 MINUTES Aileen Quintanilla, NICK.SHIPPING ORDER CLERK [address] [place] [address] Referral ID Status Reason Start Date Expiration Date Visits Requested Visits Authorized [id number] Pending Review PCP Requested Referral 04/15/2023 04/14/2024 1 1 Specialty Diagnoses / Procedures Referred By Contac t Referred To Contact Diagnoses Poorly controlled diabetes mellitus (HCC) Procedures ENDOCRINOLOGY DIETITIAN VISIT (MNT) MEDICAL NUTRITION ASSMT&IVNTJ INDIV EACH 15 NM MEDICAL NUTRITION ASSMT&IVNTJ INDIV EACH 15 NM MEDICAL NUTRITION ASSMT&IVNTJ INDIV EACH 15 NM MEDICAL NUTRITION ASSMT&IVNTJ INDIV EACH 15 NM Aileen Quintanilla, NICK.SHIPPING ORDER CLERK [address] [place] [address] Referral ID Status Reason Start Date Expiration Date Visits Requested Visits Authorized [id number] Authorized PCP Requested Referral 04/15/2023 04/14/2024 1 1 Specialty Diagnoses / Procedures Referred By Contac t Referred To Contact Diagnoses Poorly controlled type 2 diabetes mellitus (HCC) Procedures CONSULT TO DIABETES EDUCATION DSME/MNT MEDICAL NUTRITION ASSMT&IVNTJ INDIV EACH 15 NM MEDICAL NUTRITION ASSMT&IVNTJ INDIV EACH 15 NM MEDICAL NUTRITION ASSMT&IVNTJ INDIV EACH 15 NM MEDICAL NUTRITION ASSMT&IVNTJ INDIV EACH 15 NM Verónica Luis CONTROLS ENGINEER.SHIPPING ORDER CLERK [address] [place] [id number] Referral ID Status Reason Start Date Expiration Date Visits Requested Visits Authorized [id number] Authorized PCP Requested Referral 05/12/2023 05/11/2024 1 1 Specialty Diagnoses / Procedures Referred By Contac t Referred To Contact Diagnoses Poorly controlled type 2 diabetes mellitus (HCC) Verónica Luis APRN.SHIPPING ORDER CLERK [address] [place] [id number] Referral ID Status Reason Start Date Expiration Date V isits Requested Visits Authorized [id number] Pending Review 1 1 Specialty Diagnoses / Procedures Referred By Contac t Referred To Contact Verónica Luis APRN.SHIPPING ORDER CLERK [address] [place] [id number] Referral ID Status Reason Start Date Expiration Date Visits Re quested Visits Authorized [id number] Closed 1 1 Specialty Diagnoses / Procedures Referred By Contac t Referred To Contact Nutrition Diagnoses Poorly controlled type 2 diabetes mellitus (HCC) Procedures CONSULT TO NUTRITION THERAPY MEDICAL NUTRITION ASSMT&IVNTJ INDIV EACH 15 NM MEDICAL NUTRITION ASSMT&IVNTJ INDIV EACH 15 NM MEDICAL NUTRITION ASSMT&IVNTJ INDIV EACH 15 NM MEDICAL NUTRITION ASSMT&IVNTJ INDIV EACH 15 NM Verónica Luis APRN.SHIPPING ORDER CLERK [address] [place] [id number] Referral ID Status Reason Start Date Expiration Date Visits Requested Visits Authorized [id number] Authorized PCP Requested Referral 05/12/2023 05/11/2024 1 1 Medications Administered Section Inactive Administered Medications - up to 3 most recent administrations Medication Order MAR Action Action Date Dose Rate Site regadenoson 0.4 mg injection (LEXISCAN) 0.4 mg, INTRAVENOUS, ONCE, 1 dose, On Wed01/23/22 at 1030, Give 0.4 mg (5 mL) over ~10 seconds, followed immediately by a 5 mL saline flush. Wait 10-20 seconds, then administer the radionuclide myocardial perfusion imaging agent. Given 01/23/2022 9:00 AM EST 0.4 mg Inactive Administered Medications - up to 3 most recent administrations Medication Order MAR Action Action Date Dose Rate Site fentaNYL 50 mcg/mL injection (SUBLIMAZE) INTRAVENOUS, X (OR/PROCEDURE) PRN, Starting on Wed02/11/22 at 1020, Until Sravanthi 02/12/22 at 0304, Intraprocedure Given 02/11/2022 10:39 AM EST 25 mcg Given 02/11/2022 10:20 AM EST 25 mcg heparin 1,000 Units in D5W 250 mL 1,000 Units, INTRA-ARTERIAL, ONE TIME, 1 dose, Starting on Wed02/11/22 at 0915, Until Sravanthi 02/12/22 at 0304, NOW (EMERGENT PROCEDURE) FOR MARKETING ANALYTICS MANAGER USE ONLY, Intraprocedure heparin 3,000 Units in NaCl 0.9% 500 mL irrigation 3,000 Units, IRRIGATION, ONE TIME, 1 dose, Starting on Wed02/11/22 at 0915, Until Sravanthi 02/12/22 at 0304, NOW (EMERGENT PROCEDURE) FOR MARKETING ANALYTICS MANAGER USE ONLY For Irrigation Use Only, Intraprocedure midazolam (PF) injection (VERSED) INTRAVENOUS, X (OR/PROCEDURE) PRN, Starting on Wed02/11/22 at 1019, Until Sravanthi 02/12/22 at 0304, Intraprocedure Given 02/11/2022 10:39 AM EST 1 mg Given 02/11/2022 10:19 AM EST 1 mg Health Concerns Infection Onset Date Last Indicated Resolved Time COVID-19 Confirmed 10/05/2022 10/05/2022 Additional Source Comments INFORMATION SOURCE (unrecogn ized section and content) DATE CREATED AUTHOR 08/31/2017 [facility] DATE CREATED AUTHOR AUTHOR'S ORGANIZ ATION 02/14/2022 [facility] DATE CREATED AUTHOR AUTHOR'S ORGANIZ ATION 04/23/2023 [facility] DATE CREATED AUTHOR AUTHOR'S ORGANIZ ATION 12/31/2023 [facility] DATE CREATED AUTHOR AUTHOR'S ORGANIZ ATION 09/08/2024 [facility] Source Comments (unrecognize d section and content) In the event this informatio n is protected by the Federal Confidentiality of Alcohol and Drug Abuse Patient Records regulations: The Federal rules restrict any use of the information to criminally investigate or prosecute any alcohol or drug abuse patient.[facility] the event this information is protected by the Federal Confidentiality of Alcohol and Drug Abuse Patient Records regulations: The Federal rules restrict any use of the information to criminally investigate or prosecute any alcohol or drug abuse patient.[facility] the event this information is protected by the Federal Confidentiality of Alcohol and Drug Abuse Patient Records regulations: The Federal rules restrict any use of the information to criminally investigate or prosecute any alcohol or drug abuse patient.[facility] the event this information is protected by the Federal Confidentiality of Alcohol and Drug Abuse Patient Records regulations: The Federal rules restrict any use of the information to criminally investigate or prosecute any alcohol or drug abuse patient.[facility] the event this information is protected by the Federal Confidentiality of Alcohol and Drug Abuse Patient Records regulations: The Federal rules restrict any use of the information to criminally investigate or prosecute any alcohol or drug abuse patient.[facility] the event this information is protected by the Federal Confidentiality of Alcohol and Drug Abuse Patient Records regulations: The Federal rules restrict any use of the information to criminally investigate or prosecute any alcohol or drug abuse patient.[facility] the event this information is protected by the Federal Confidentiality of Alcohol and Drug Abuse Patient Records regulations: The Federal rules restrict any use of the information to criminally investigate or prosecute any alcohol or drug abuse patient.[facility] the event this information is protected by the Federal Confidentiality of Alcohol and Drug Abuse Patient Records regulations: The Federal rules restrict any use of the information to criminally investigate or prosecute any alcohol or drug abuse patient.[facility] the event this information is protected by the Federal Confidentiality of Alcohol and Drug Abuse Patient Records regulations: The Federal rules restrict any use of the information to criminally investigate or prosecute any alcohol or drug abuse patient.[facility] the event this information is protected by the Federal Confidentiality of Alcohol and Drug Abuse Patient Records regulations: The Federal rules restrict any use of the information to criminally investigate or prosecute any alcohol or drug abuse patient.[facility] the event this information is protected by the Federal Confidentiality of Alcohol and Drug Abuse Patient Records regulations: The Federal rules restrict any use of the information to criminally investigate or prosecute any alcohol or drug abuse patient.[facility] the event this information is protected by the Federal Confidentiality of Alcohol and Drug Abuse Patient Records regulations: The Federal rules restrict any use of the information to criminally investigate or prosecute any alcohol or drug abuse patient.[facility] Center[facility] the event this information is protected by the Federal Confidentiality of Alcohol and Drug Abuse Patient Records regulations: The Federal rules restrict any use of the information to criminally investigate or prosecute any alcohol or drug abuse patient.[facility] Center[facility] the event this information is protected by the Federal Confidentiality of Alcohol and Drug Abuse Patient Records regulations: The Federal rules restrict any use of the information to criminally investigate or prosecute any alcohol or drug abuse patient.[facility] Center[facility] the event this information is protected by the Federal Confidentiality of Alcohol and Drug Abuse Patient Records regulations: The Federal rules restrict any use of the information to criminally investigate or prosecute any alcohol or drug abuse patient.[facility] Center[facility] the event this information is protected by the Federal Confidentiality of Alcohol and Drug Abuse Patient Records regulations: The Federal rules restrict any use of the information to criminally investigate or prosecute any alcohol or drug abuse patient.[facility] CenterIn the event this information is protected by the Federal Confidentiality of Alcohol and Drug Abuse Patient Records regulations: The Federal rules restrict any use of the information to criminally investigate or prosecute any alcohol or drug abuse patient.[facility] CenterIn the event this information is protected by the Federal Confidentiality of Alcohol and Drug Abuse Patient Records regulations: The Federal rules restrict any use of the information to criminally investigate or prosecute any alcohol or drug abuse patient.[facility] CenterIn the event this information is protected by the Federal Confidentiality of Alcohol and Drug Abuse Patient Records regulations: The Federal rules restrict any use of the information to criminally investigate or prosecute any alcohol or drug abuse patient.[facility] CenterIn the event this information is protected by the Federal Confidentiality of Alcohol and Drug Abuse Patient Records regulations: The Federal rules restrict any use of the information to criminally investigate or prosecute any alcohol or drug abuse patient.[facility] CenterIn the event this information is protected by the Federal Confidentiality of Alcohol and Drug Abuse Patient Records regulations: The Federal rules restrict any use of the information to criminally investigate or prosecute any alcohol or drug abuse patient.[facility] CenterIn the event this information is protected by the Federal Confidentiality of Alcohol and Drug Abuse Patient Records regulations: The Federal rules restrict any use of the information to criminally investigate or prosecute any alcohol or drug abuse patient.[facility] CenterIn the event this information is protected by the Federal Confidentiality of Alcohol and Drug Abuse Patient Records regulations: The Federal rules restrict any use of the information to criminally investigate or prosecute any alcohol or drug abuse patient.[facility] CenterIn the event this information is protected by the Federal Confidentiality of Alcohol and Drug Abuse Patient Records regulations: The Federal rules restrict any use of the information to criminally investigate or prosecute any alcohol or drug abuse patient.[facility] CenterIn the event this information is protected by the Federal Confidentiality of Alcohol and Drug Abuse Patient Records regulations: The Federal rules restrict any use of the information to criminally investigate or prosecute any alcohol or drug abuse patient.[facility] CenterIn the event this information is protected by the Federal Confidentiality of Alcohol and Drug Abuse Patient Records regulations: The Federal rules restrict any use of the information to criminally investigate or prosecute any alcohol or drug abuse patient.[facility] CenterIn the event this information is protected by the Federal Confidentiality of Alcohol and Drug Abuse Patient Records regulations: The Federal rules restrict any use of the information to criminally investigate or prosecute any alcohol or drug abuse patient.[facility] CenterIn the event this information is protected by the Federal Confidentiality of Alcohol and Drug Abuse Patient Records regulations: The Federal rules restrict any use of the information to criminally investigate or prosecute any alcohol or drug abuse patient.[facility] CenterIn the event this information is protected by the Federal Confidentiality of Alcohol and Drug Abuse Patient Records regulations: The Federal rules restrict any use of the information to criminally investigate or prosecute any alcohol or drug abuse patient.[facility] CenterIn the event this information is protected by the Federal Confidentiality of Alcohol and Drug Abuse Patient Records regulations: The Federal rules restrict any use of the information to criminally investigate or prosecute any alcohol or drug abuse patient.[facility] CenterIn the event this information is protected by the Federal Confidentiality of Alcohol and Drug Abuse Patient Records regulations: The Federal rules restrict any use of the information to criminally investigate or prosecute any alcohol or drug abuse patient.[facility] CenterIn the event this information is protected by the Federal Confidentiality of Alcohol and Drug Abuse Patient Records regulations: The Federal rules restrict any use of the information to criminally investigate or prosecute any alcohol or drug abuse patient.[facility] CenterIn the event this information is protected by the Federal Confidentiality of Alcohol and Drug Abuse Patient Records regulations: The Federal rules restrict any use of the information to criminally investigate or prosecute any alcohol or drug abuse patient.[facility] CenterIn the event this information is protected by the Federal Confidentiality of Alcohol and Drug Abuse Patient Records regulations: The Federal rules restrict any use of the information to criminally investigate or prosecute any alcohol or drug abuse patient.[facility] CenterIn the event this information is protected by the Federal Confidentiality of Alcohol and Drug Abuse Patient Records regulations: The Federal rules restrict any use of the information to criminally investigate or prosecute any alcohol or drug abuse patient.[facility] CenterIn the event this information is protected by the Federal Confidentiality of Alcohol and Drug Abuse Patient Records regulations: The Federal rules restrict any use of the information to criminally investigate or prosecute any alcohol or drug abuse patient.[facility] CenterIn the event this information is protected by the Federal Confidentiality of Alcohol and Drug Abuse Patient Records regulations: The Federal rules restrict any use of the information to criminally investigate or prosecute any alcohol or drug abuse patient.[facility] CenterIn the event this information is protected by the Federal Confidentiality of Alcohol and Drug Abuse Patient Records regulations: The Federal rules restrict any use of the information to criminally investigate or prosecute any alcohol or drug abuse patient.[facility] CenterIn the event this information is protected by the Federal Confidentiality of Alcohol and Drug Abuse Patient Records regulations: The Federal rules restrict any use of the information to criminally investigate or prosecute any alcohol or drug abuse patient.[facility] CenterIn the event this information is protected by the Federal Confidentiality of Alcohol and Drug Abuse Patient Records regulations: The Federal rules restrict any use of the information to criminally investigate or prosecute any alcohol or drug abuse patient.[facility] CenterIn the event this information is protected by the Federal Confidentiality of Alcohol and Drug Abuse Patient Records regulations: The Federal rules restrict any use of the information to criminally investigate or prosecute any alcohol or drug abuse patient.[facility] CenterIn the event this information is protected by the Federal Confidentiality of Alcohol and Drug Abuse Patient Records regulations: The Federal rules restrict any use of the information to criminally investigate or prosecute any alcohol or drug abuse patient.[facility] CenterIn the event this information is protected by the Federal Confidentiality of Alcohol and Drug Abuse Patient Records regulations: The Federal rules restrict any use of the information to criminally investigate or prosecute any alcohol or drug abuse patient.[facility] CenterIn the event this information is protected by the Federal Confidentiality of Alcohol and Drug Abuse Patient Records regulations: The Federal rules restrict any use of the information to criminally investigate or prosecute any alcohol or drug abuse patient.[facility]In the event this information is protected by the Federal Confidentiality of Alcohol and Drug Abuse Patient Records regulations: The Federal rules restrict any use of the information to criminally investigate or prosecute any alcohol or drug abuse patient.[facility] CenterIn the event this information is protected by the Federal Confidentiality of Alcohol and Drug Abuse Patient Records regulations: The Federal rules restrict any use of the information to criminally investigate or prosecute any alcohol or drug abuse patient.[facility]In the event this information is protected by the Federal Confidentiality of Alcohol and Drug Abuse Patient Records regulations: The Federal rules restrict any use of the information to criminally investigate or prosecute any alcohol or drug abuse patient.[facility] CenterIn the event this information is protected by the Federal Confidentiality of Alcohol and Drug Abuse Patient Records regulations: The Federal rules restrict any use of the information to criminally investigate or prosecute any alcohol or drug abuse patient.[facility] CenterIn the event this information is protected by the Federal Confidentiality of Alcohol and Drug Abuse Patient Records regulations: The Federal rules restrict any use of the information to criminally investigate or prosecute any alcohol or drug abuse patient.[facility]In the event this information is protected by the Federal Confidentiality of Alcohol and Drug Abuse Patient Records regulations: The Federal rules restrict any use of the information to criminally investigate or prosecute any alcohol or drug abuse patient.[facility]In the event this information is protected by the Federal Confidentiality of Alcohol and Drug Abuse Patient Records regulations: The Federal rules restrict any use of the information to criminally investigate or prosecute any alcohol or drug abuse patient.[facility]In the event this information is protected by the Federal Confidentiality of Alcohol and Drug Abuse Patient Records regulations: The Federal rules restrict any use of the information to criminally investigate or prosecute any alcohol or drug abuse patient.[facility]In the event this information is protected by the Federal Confidentiality of Alcohol and Drug Abuse Patient Records regulations: The Federal rules restrict any use of the information to criminally investigate or prosecute any alcohol or drug abuse patient.[facility]In the event this information is protected by the Federal Confidentiality of Alcohol and Drug Abuse Patient Records regulations: The Federal rules restrict any use of the information to criminally investigate or prosecute any alcohol or drug abuse patient.[facility]In the event this information is protected by the Federal Confidentiality of Alcohol and Drug Abuse Patient Records regulations: The Federal rules restrict any use of the information to criminally investigate or prosecute any alcohol or drug abuse patient.[facility]In the event this information is protected by the Federal Confidentiality of Alcohol and Drug Abuse Patient Records regulations: The Federal rules restrict any use of the information to criminally investigate or prosecute any alcohol or drug abuse patient.[facility]In the event this information is protected by the Federal Confidentiality of Alcohol and Drug Abuse Patient Records regulations: The Federal rules restrict any use of the information to criminally investigate or prosecute any alcohol or drug abuse patient.[facility]In the event this information is protected by the Federal Confidentiality of Alcohol and Drug Abuse Patient Records regulations: The Federal rules restrict any use of the information to criminally investigate or prosecute any alcohol or drug abuse patient.[facility]In the event this information is protected by the Federal Confidentiality of Alcohol and Drug Abuse Patient Records regulations: The Federal rules restrict any use of the information to criminally investigate or prosecute any alcohol or drug abuse patient.[facility]In the event this information is protected by the Federal Confidentiality of Alcohol and Drug Abuse Patient Records regulations: The Federal rules restrict any use of the information to criminally investigate or prosecute any alcohol or drug abuse patient.[facility]In the event this information is protected by the Federal Confidentiality of Alcohol and Drug Abuse Patient Records regulations: The Federal rules restrict any use of the information to criminally investigate or prosecute any alcohol or drug abuse patient.[facility]In the event this information is protected by the Federal Confidentiality of Alcohol and Drug Abuse Patient Records regulations: The Federal rules restrict any use of the information to criminally investigate or prosecute any alcohol or drug abuse patient.[facility]In the event this information is protected by the Federal Confidentiality of Alcohol and Drug Abuse Patient Records regulations: The Federal rules restrict any use of the information to criminally investigate or prosecute any alcohol or drug abuse patient.[facility]In the event this information is protected by the Federal Confidentiality of Alcohol and Drug Abuse Patient Records regulations: The Federal rules restrict any use of the information to criminally investigate or prosecute any alcohol or drug abuse patient.[facility]In the event this information is protected by the Federal Confidentiality of Alcohol and Drug Abuse Patient Records regulations: The Federal rules restrict any use of the information to criminally investigate or prosecute any alcohol or drug abuse patient.[facility]In the event this information is protected by the Federal Confidentiality of Alcohol and Drug Abuse Patient Records regulations: The Federal rules restrict any use of the information to criminally investigate or prosecute any alcohol or drug abuse patient.[facility]In the event this information is protected by the Federal Confidentiality of Alcohol and Drug Abuse Patient Records regulations: The Federal rules restrict any use of the information to criminally investigate or prosecute any alcohol or drug abuse patient.[facility]In the event this information is protected by the Federal Confidentiality of Alcohol and Drug Abuse Patient Records regulations: The Federal rules restrict any use of the information to criminally investigate or prosecute any alcohol or drug abuse patient.[facility]In the event this information is protected by the Federal Confidentiality of Alcohol and Drug Abuse Patient Records regulations: The Federal rules restrict any use of the information to criminally investigate or prosecute any alcohol or drug abuse patient.[facility]In the event this information is protected by the Federal Confidentiality of Alcohol and Drug Abuse Patient Records regulations: The Federal rules restrict any use of the information to criminally investigate or prosecute any alcohol or drug abuse patient.[facility]In the event this information is protected by the Federal Confidentiality of Alcohol and Drug Abuse Patient Records regulations: The Federal rules restrict any use of the information to criminally investigate or prosecute any alcohol or drug abuse patient.[facility]In the event this information is protected by the Federal Confidentiality of Alcohol and Drug Abuse Patient Records regulations: The Federal rules restrict any use of the information to criminally investigate or prosecute any alcohol or drug abuse patient.[facility]In the event this information is protected by the Federal Confidentiality of Alcohol and Drug Abuse Patient Records regulations: The Federal rules restrict any use of the information to criminally investigate or prosecute any alcohol or drug abuse patient.[facility]In the event this information is protected by the Federal Confidentiality of Alcohol and Drug Abuse Patient Records regulations: The Federal rules restrict any use of the information to criminally investigate or prosecute any alcohol or drug abuse patient.[facility]In the event this information is protected by the Federal Confidentiality of Alcohol and Drug Abuse Patient Records regulations: The Federal rules restrict any use of the information to criminally investigate or prosecute any alcohol or drug abuse patient.[facility]In the event this information is protected by the Federal Confidentiality of Alcohol and Drug Abuse Patient Records regulations: The Federal rules restrict any use of the information to criminally investigate or prosecute any alcohol or drug abuse patient.[facility]In the event this information is protected by the Federal Confidentiality of Alcohol and Drug Abuse Patient Records regulations: The Federal rules restrict any use of the information to criminally investigate or prosecute any alcohol or drug abuse patient.[facility]In the event this information is protected by the Federal Confidentiality of Alcohol and Drug Abuse Patient Records regulations: The Federal rules restrict any use of the information to criminally investigate or prosecute any alcohol or drug abuse patient.[facility]In the event this information is protected by the Federal Confidentiality of Alcohol and Drug Abuse Patient Records regulations: The Federal rules restrict any use of the information to criminally investigate or prosecute any alcohol or drug abuse patient.[facility]In the event this information is protected by the Federal Confidentiality of Alcohol and Drug Abuse Patient Records regulations: The Federal rules restrict any use of the information to criminally investigate or prosecute any alcohol or drug abuse patient.[facility]In the event this information is protected by the Federal Confidentiality of Alcohol and Drug Abuse Patient Records regulations: The Federal rules restrict any use of the information to criminally investigate or prosecute any alcohol or drug abuse patient.[facility]In the event this information is protected by the Federal Confidentiality of Alcohol and Drug Abuse Patient Records regulations: The Federal rules restrict any use of the information to criminally investigate or prosecute any alcohol or drug abuse patient.[facility]In the event this information is protected by the Federal Confidentiality of Alcohol and Drug Abuse Patient Records regulations: The Federal rules restrict any use of the information to criminally investigate or prosecute any alcohol or drug abuse patient.[facility]In the event this information is protected by the Federal Confidentiality of Alcohol and Drug Abuse Patient Records regulations: The Federal rules restrict any use of the information to criminally investigate or prosecute any alcohol or drug abuse patient.[facility]In the event this information is protected by the Federal Confidentiality of Alcohol and Drug Abuse Patient Records regulations: The Federal rules restrict any use of the information to criminally investigate or prosecute any alcohol or drug abuse patient.[facility]In the event this information is protected by the Federal Confidentiality of Alcohol and Drug Abuse Patient Records regulations: The Federal rules restrict any use of the information to criminally investigate or prosecute any alcohol or drug abuse patient.[facility]In the event this information is protected by the Federal Confidentiality of Alcohol and Drug Abuse Patient Records regulations: The Federal rules restrict any use of the information to criminally investigate or prosecute any alcohol or drug abuse patient.[facility]In the event this information is protected by the Federal Confidentiality of Alcohol and Drug Abuse Patient Records regulations: The Federal rules restrict any use of the information to criminally investigate or prosecute any alcohol or drug abuse patient.[facility]In the event this information is protected by the Federal Confidentiality of Alcohol and Drug Abuse Patient Records regulations: The Federal rules restrict any use of the information to criminally investigate or prosecute any alcohol or drug abuse patient.[facility]In the event this information is protected by the Federal Confidentiality of Alcohol and Drug Abuse Patient Records regulations: The Federal rules restrict any use of the information to criminally investigate or prosecute any alcohol or drug abuse patient.[facility]In the event this information is protected by the Federal Confidentiality of Alcohol and Drug Abuse Patient Records regulations: The Federal rules restrict any use of the information to criminally investigate or prosecute any alcohol or drug abuse patient.[facility]In the event this information is protected by the Federal Confidentiality of Alcohol and Drug Abuse Patient Records regulations: The Federal rules restrict any use of the information to criminally investigate or prosecute any alcohol or drug abuse patient.[facility]In the event this information is protected by the Federal Confidentiality of Alcohol and Drug Abuse Patient Records regulations: The Federal rules restrict any use of the information to criminally investigate or prosecute any alcohol or drug abuse patient.[facility]In the event this information is protected by the Federal Confidentiality of Alcohol and Drug Abuse Patient Records regulations: The Federal rules restrict any use of the information to criminally investigate or prosecute any alcohol or drug abuse patient.[facility]In the event this information is protected by the Federal Confidentiality of Alcohol and Drug Abuse Patient Records regulations: The Federal rules restrict any use of the information to criminally investigate or prosecute any alcohol or drug abuse patient.[facility]In the event this information is protected by the Federal Confidentiality of Alcohol and Drug Abuse Patient Records regulations: The Federal rules restrict any use of the information to criminally investigate or prosecute any alcohol or drug abuse patient.[facility]In the event this information is protected by the Federal Confidentiality of Alcohol and Drug Abuse Patient Records regulations: The Federal rules restrict any use of the information to criminally investigate or prosecute any alcohol or drug abuse patient.[facility]In the event this information is protected by the Federal Confidentiality of Alcohol and Drug Abuse Patient Records regulations: The Federal rules restrict any use of the information to criminally investigate or prosecute any alcohol or drug abuse patient.[facility]In the event this information is protected by the Federal Confidentiality of Alcohol and Drug Abuse Patient Records regulations: The Federal rules restrict any use of the information to criminally investigate or prosecute any alcohol or drug abuse patient.[facility]In the event this information is protected by the Federal Confidentiality of Alcohol and Drug Abuse Patient Records regulations: The Federal rules restrict any use of the information to criminally investigate or prosecute any alcohol or drug abuse patient.[facility]In the event this information is protected by the Federal Confidentiality of Alcohol and Drug Abuse Patient Records regulations: The Federal rules restrict any use of the information to criminally investigate or prosecute any alcohol or drug abuse patient.[facility]In the event this information is protected by the Federal Confidentiality of Alcohol and Drug Abuse Patient Records regulations: The Federal rules restrict any use of the information to criminally investigate or prosecute any alcohol or drug abuse patient.[facility]In the event this information is protected by the Federal Confidentiality of Alcohol and Drug Abuse Patient Records regulations: The Federal rules restrict any use of the information to criminally investigate or prosecute any alcohol or drug abuse patient.[facility] CenterIn the event this information is protected by the Federal Confidentiality of Alcohol and Drug Abuse Patient Records regulations: The Federal rules restrict any use of the information to criminally investigate or prosecute any alcohol or drug abuse patient.[facility] CenterIn the event this information is protected by the Federal Confidentiality of Alcohol and Drug Abuse Patient Records regulations: The Federal rules restrict any use of the information to criminally investigate or prosecute any alcohol or drug abuse patient.[facility] CenterIn the event this information is protected by the Federal Confidentiality of Alcohol and Drug Abuse Patient Records regulations: The Federal rules restrict any use of the information to criminally investigate or prosecute any alcohol or drug abuse patient.[facility] CenterIn the event this information is protected by the Federal Confidentiality of Alcohol and Drug Abuse Patient Records regulations: The Federal rules restrict any use of the information to criminally investigate or prosecute any alcohol or drug abuse patient.[facility] CenterIn the event this information is protected by the Federal Confidentiality of Alcohol and Drug Abuse Patient Records regulations: The Federal rules restrict any use of the information to criminally investigate or prosecute any alcohol or drug abuse patient.[facility] CenterIn the event this information is protected by the Federal Confidentiality of Alcohol and Drug Abuse Patient Records regulations: The Federal rules restrict any use of the information to criminally investigate or prosecute any alcohol or drug abuse patient.[facility] CenterIn the event this information is protected by the Federal Confidentiality of Alcohol and Drug Abuse Patient Records regulations: The Federal rules restrict any use of the information to criminally investigate or prosecute any alcohol or drug abuse patient.[facility] CenterIn the event this information is protected by the Federal Confidentiality of Alcohol and Drug Abuse Patient Records regulations: The Federal rules restrict any use of the information to criminally investigate or prosecute any alcohol or drug abuse patient.[facility] CenterIn the event this information is protected by the Federal Confidentiality of Alcohol and Drug Abuse Patient Records regulations: The Federal rules restrict any use of the information to criminally investigate or prosecute any alcohol or drug abuse patient.[facility] CenterIn the event this information is protected by the Federal Confidentiality of Alcohol and Drug Abuse Patient Records regulations: The Federal rules restrict any use of the information to criminally investigate or prosecute any alcohol or drug abuse patient.[facility] CenterIn the event this information is protected by the Federal Confidentiality of Alcohol and Drug Abuse Patient Records regulations: The Federal rules restrict any use of the information to criminally investigate or prosecute any alcohol or drug abuse patient.[facility] Reason for Visit (unrecogniz ed section and content) Reason Comments Shingrix Reason Comments Allied Health Visit DM Reason Comments Patient Education Assessment Specialty Diagnoses / Procedures Referred By Asha t Referred To Contact Nutrition Diagnoses Diabetes mellitus, non-insulin dependent (NIDDM or type II) (HCC) Procedures CONSULT TO NUTRITION THERAPY OFFICE/OUTPATIENT [facility] 60-74 MINUTES Emily Wang MD [address] [place] [address] Referral ID Status Reason Start Date Expiration Date V isits Requested Visits Authorized [id number] Closed PCP Requested Referral 07/02/2021 07/02/2022 1 1 Reason Comments Pain (Shoulder Pain) X 2 days Reason Comments F/U 3 Month Reason Onset Date Comments Refill Request 11/24/2021 Reason Comments New Patient Re-est care. 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 [address] [place] [address] Referral ID Status Reason Start Date Expiration Date Visits Re quested Visits Authorized [id number] 1 1 Reason Comments medication advice Reason Comments Depression Reason Comments Acute Visit Depression Reason Comments Cardiology Follow Up No issues Reason Comments work excuse/medication request Reason Comments Results Reason Comments Acute Visit fatique and depressi on Reason Onset Date Comments Refill Request 06/25/2022 Reason Comments F/U 3 Month Reason Comments Results Labs Reason Comments Results RUQ US Reason Comments Cardiology Follow Up FLOR DM 2 ObesityECG 3Cath 02/11/2022 Lt HeartNM 01/23/2022 A lot stress ROOM 10 Reason Comments Patient Update Reason Comments Follow Up 3 month follow up Reason Comments Refill Request Reason Comments Results Labs Orders Reason Comments Radiology US Specialty Diagnoses / Procedures Referred By Contac t Referred To Contact US IMAGING Diagnoses Abdominal pain, unspecified abdominal location Procedures US ABD RIGHT UPPER QUADRANT US ABDOMINAL REAL TIME W/IMAGE LIMITED Aileen Quintanilla, NICK.SHIPPING ORDER CLERK [address] [place] [address] [place] [address] Referral ID Status Reason Start Date Expiration Date V isits Requested Visits Authorized [id number] Closed Auto-Generate d Referral 09/17/2022 10/17/2023 1 1 Reason Comments Recheck Strong urine, vagina l drainage that's white, area is itchy and patient believes there is one bump. 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 Reason Onset Date Comments Refill Request 04/22/2023 Reason Comments Nausea & Vomiting Fatigue, chills, minerva rrhea x 3 days Reason Comments type 2 diabetes Reason Comments Prior Authorization [employer] Reason Comments Medication Problem Over 400.00 Reason Comments Medication Problem Reason Comments No Show Reason Comments Lab Orders Reason Comments Follow Up 3 month follow up Reason Onset Date Comments Refill Request 06/17/2023 Reason Comments type 2 diabetes Reason Onset Date Comments Refill Request 09/15/2023 Reason Comments Follow Up 3 month follow up wi th labs Reason Comments New pt appt Reason Comments Chest Pain Reason Onset Date Comments Refill Request 10/20/2023 Reason Comments Vaginal Problem Reason Comments Vaginal Problem Vaginal itching x 3- 4 weeks Reason Comments Acute Visit vaginal discompfort Reason Comments Follow Up Specialty Diagnoses / Procedures Referred By Contac t Referred To Contact Cardiology / [facility] Diagnoses Follow-up exam CAD, follow up Procedures OFFICE/OUTPATIENT ESTABLISHED MOD MDM 30 MIN EST PATIENT Abelardo Nash DO [address] [place] [address] Hawa Padron MD [address] [place] [address] Referral ID Status Reason Start Date Expiration Date Visits Re quested Visits Authorized [id number] Closed 12/09/2023 03/07/2024 1 1 Reason Onset Date Comments Refill Request 12/29/2023 Reason Onset Date Comments Refill Request 01/21/2024 Reason Onset Date Comments Refill Request 03/09/2024 Reason Onset Date Comments Refill Request 03/20/2024 Reason Comments Follow Up Reason Onset Date Comments Refill Request 02/14/2024 Reason Comments Insurance Authorization [employer] Approval for Rep[employer], 04/27/24 - 04/27/25 Reason Comments Orders PA Ailyn Reason Onset Date Comments Refill Request 05/18/2024 Reason Onset Date Comments Results 06/09/2024 Reason Comments Medication request body aches Reason Comments Fibromyalgia Medication Follow-up Reason Comments Rash Reason Comments itching all over Reason Comments Follow Up Reason Comments Type 2 Diabetes Reason Onset Date Comments Refill Request 09/07/2024 Care Teams (unrecognized sec tion and content) Deodorizer Operator Relationship Specialty Start Date End Date Emily Wang MD [address] [place] [address] PCP - General Family Practice 06/21/13 Deodorizer Operator Relationship Specialty Start Date End Date Emily Wang MD [address] [facility] [place] [address] PCP - General Family Practice 06/21/13 Deodorizer Operator Relationship Specialty Start Date End Date Emily Wang MD [address] [facility] [place] [address] PCP - General Family Practice 06/21/13 Deodorizer Operator Relationship Specialty Start Date End Date Emily Wang MD [address] [facility] [place] [address] PCP - General Family Practice 06/21/13 Winston Lopez, [facility] [address] [facility] [place] [address] Pharmacist Pharmacy 07/02/21 Deodorizer Operator Relationship Specialty Start Date End Date Emily Wang MD [address] [facility] [place] [address] PCP - General Family Practice 06/21/13 Winston Lopez, [facility] [address] [facility] [place] [address] Pharmacist Pharmacy 07/02/21 Deodorizer Operator Relationship Specialty Start Date End Date Emily Wang MD [address] [facility] [place] [address] PCP - General Family Practice 06/21/13 Winston Lopez, [facility] [address] [facility] [place] [address] Pharmacist Pharmacy 07/02/21 Deodorizer Operator Relationship Specialty Start Date End Date Emily Wang MD [address] [facility] [place] [address] PCP - General Family Practice 06/21/13 [facility] [address] [place] [address] Pharmacist Pharmacy 07/02/21 Deodorizer Operator Relationship Specialty Start Date End Date Emily Wang MD [address] [place] [address] PCP - General Family Practice 06/21/13 Winston Lopez, [facility] [address] [place] [address] Pharmacist Pharmacy 07/02/21 Deodorizer Operator Relationship Specialty Start Date End Date Emily Wang MD [address] [place] [address] PCP - General Family Medicine 06/21/13 Winston Lopez, [facility] [address] [place] [address] Pharmacist Pharmacy 07/02/21 Deodorizer Operator Relationship Specialty Start Date End Date Emily Wang MD [address] [place] [address] PCP - General Family Medicine 06/21/13 Winston Lopez, [facility] [address] [place] [address] Pharmacist Pharmacy 07/02/21 Deodorizer Operator Relationship Specialty Start Date End Date Emily Wang MD [address] [place] [address] PCP - General Family Medicine 06/21/13 Winston Lopez, [facility] [address] [place] [address] Pharmacist Pharmacy 07/02/21 Deodorizer Operator Relationship Specialty Start Date End Date Emily Wang MD [address] [place] [address] PCP - General Family Medicine 06/21/13 Winston Lopez, [facility] [address] [facility] [place] [address] Pharmacist Pharmacy 07/02/21 Deodorizer Operator Relationship Specialty Start Date End Date Emily Wang MD [address] [facility] [place] [address] PCP - General Family Medicine 06/21/13 Winston Lopez, [facility] [address] [facility] [place] [address] Pharmacist Pharmacy 07/02/21 Deodorizer Operator Relationship Specialty Start Date End Date Emily Wang MD [address] [facility] [place] [address] PCP - General Family Medicine 06/21/13 Winston Lopez, [facility] [address] [facility] [place] [address] Pharmacist Pharmacy 07/02/21 Deodorizer Operator Relationship Specialty Start Date End Date Emily Wang MD [address] [facility] [place] [address] PCP - General Family Medicine 06/21/13 Winston Lopez, [facility] [address] [facility] [place] [address] Pharmacist Pharmacy 07/02/21 Deodorizer Operator Relationship Specialty Start Date End Date Emily Wang MD [address] [facility] [place] [address] PCP - General Family Medicine 06/21/13 Winston Lopez, [facility] [address] [facility] [place] [address] Pharmacist Pharmacy 07/02/21 Deodorizer Operator Relationship Specialty Start Date End Date Emily aWng MD [address] [facility] [place] [address] PCP - General Family Medicine 06/21/13 [facility] [address] [facility] [place] [address] Pharmacist Pharmacy 07/02/21 Deodorizer Operator Relationship Specialty Start Date End Date Emily Wang MD [address] [facility] [place] [address] PCP - General Family Medicine 06/21/13 FredWinston, [facility] [address] [facility] [place] [address] Pharmacist Pharmacy 07/02/21 Deodorizer Operator Relationship Specialty Start Date End Date Emily Wang MD [address] [facility] [place] [address] PCP - General Family Medicine 06/21/13 Winston Lopez, [facility] [address] [facility] [place] [address] Pharmacist Pharmacy 07/02/21 Deodorizer Operator Relationship Specialty Start Date End Date Emily Wang MD [address] [facility] [place] [address] PCP - General Family Medicine 06/21/13 FredIvan, [facility] [address] [facility] [place] [address] Pharmacist Pharmacy 07/02/21 Deodorizer Operator Relationship Specialty Start Date End Date Emily Wang MD [address] [facility] [place] [address] PCP - General Family Medicine 06/21/13 FredWinston, [facility] [address] [facility] [place] [address] Pharmacist Pharmacy 07/02/21 Deodorizer Operator Relationship Specialty Start Date End Date Emily Wang MD [address] [place] [address] PCP - General Family Medicine 06/21/13 Winston Lopez, [facility] [address] [facility] [place] [address] Pharmacist Pharmacy 07/02/21 Deodorizer Operator Relationship Specialty Start Date End Date Emily Wang MD [address] [facility] [place] [address] PCP - General Family Medicine 06/21/13 Winston Lopez, [facility] [address] [facility] [place] [address] Pharmacist Pharmacy 07/02/21 Deodorizer Operator Relationship Specialty Start Date End Date Emily Wang MD [address] [place] [address] PCP - General Family Medicine 06/21/13 FredWinston, [facility] [address] [facility] [place] [address] Pharmacist Pharmacy 07/02/21 Deodorizer Operator Relationship Specialty Start Date End Date Emily Wang MD [address] [facility] [place] [address] PCP - General Family Medicine 06/21/13 FredWinston, [facility] [address] [facility] [place] [address] Pharmacist Pharmacy 07/02/21 Deodorizer Operator Relationship Specialty Start Date End Date Emily Wang MD [address] [facility] [place] [address] PCP - General Family Medicine 06/21/13 FredWinston, [facility] [address] [facility] [place] [address] Pharmacist Pharmacy 07/02/21 Deodorizer Operator Relationship Specialty Start Date End Date Emily Wang MD [address] [facility] [place] [address] PCP - General Family Medicine 06/21/13 Winston Lopez, [facility] [address] [place] [address] Pharmacist Pharmacy 07/02/21 Deodorizer Operator Relationship Specialty Start Date End Date Emily Wang MD [address] [facility] [place] [address] PCP - General Family Medicine 06/21/13 Winston Lopez, [facility] [address] [place] [address] Pharmacist Pharmacy 07/02/21 Deodorizer Operator Relationship Specialty Start Date End Date Emily Wang MD [address] [facility] [place] [address] PCP - General Family Medicine 06/21/13 Winston Lopez, [facility] [address] [place] [address] Pharmacist Pharmacy 07/02/21 Deodorizer Operator Relationship Specialty Start Date End Date Emily Wang MD [address] [facility] [place] [address] PCP - General Family Medicine 06/21/13 Winston Lopez, [facility] [address] [place] [address] Pharmacist Pharmacy 07/02/21 Deodorizer Operator Relationship Specialty Start Date End Date Emily Wang MD [address] [facility] [place] [address] PCP - General Family Medicine 06/21/13 FredWinston mckeon, [facility] [address] [place] [address] Pharmacist Pharmacy 07/02/21 Deodorizer Operator Relationship Specialty Start Date End Date Emily Wang MD [address] [place] [address] PCP - General Family Medicine 06/21/13 Fredlinda Ivanshanna, [facility] [address] [facility] [place] [address] Pharmacist Pharmacy 07/02/21 Deodorizer Operator Relationship Specialty Start Date End Date Emily Wang MD [address] [place] [address] PCP - General Family Medicine 06/21/13 FredIvan mckeon, [facility] [address] [place] [address] Pharmacist Pharmacy 07/02/21 Deodorizer Operator Relationship Specialty Start Date End Date Emily Wang MD [address] [facility] [place] [address] PCP - General Family Medicine 06/21/13 FredWinston mckeon, [facility] [address] [facility] [place] [address] Pharmacist Pharmacy 07/02/21 Deodorizer Operator Relationship Specialty Start Date End Date Emily Wang MD [address] [facility] [place] [address] PCP - General Family Medicine 06/21/13 Fred Ivan, [facility] [address] [facility] [place] [address] Pharmacist Pharmacy 07/02/21 Deodorizer Operator Relationship Specialty Start Date End Date Emily Wang MD [address] [place] [address] PCP - General Family Medicine 06/21/13 Fredlinda Ivanshanna, [facility] [address] [place] [address] Pharmacist Pharmacy 07/02/21 Deodorizer Operator Relationship Specialty Start Date End Date Emily Wang MD [address] [place] [address] PCP - General Family Medicine 06/21/13 Deodorizer Operator Relationship Specialty Start Date End Date Emily Wang MD [address] [place] [address] PCP - General Family Medicine 06/21/13 Deodorizer Operator Relationship Specialty Start Date End Date Emily Wang MD [address] [place] [address] PCP - General Family Medicine 06/21/13 Deodorizer Operator Relationship Specialty Start Date End Date Emily Wang MD [address] [place] [address] PCP - General Family Medicine 06/21/13 Deodorizer Operator Relationship Specialty Start Date End Date Emily Wang MD [address] [place] [address] PCP - General Family Medicine 06/21/13 Deodorizer Operator Relationship Specialty Start Date End Date Emily Wang MD [address] [place] [address] PCP - General Family Medicine 06/21/13 Deodorizer Operator Relationship Specialty Start Date End Date Emily Wang MD [address] [place] [address] PCP - General Family Medicine 06/21/13 Deodorizer Operator Relationship Specialty Start Date End Date Emily Wang MD [address] [place] [address] PCP - General Family Medicine 06/21/13 Deodorizer Operator Relationship Specialty Start Date End Date Emily Wang MD [address] [place] [address] PCP - General Family Medicine 06/21/13 Deodorizer Operator Relationship Specialty Start Date End Date Emily Wang MD [address] [place] [address] PCP - General Family Medicine 06/21/13 Deodorizer Operator Relationship Specialty Start Date End Date Emily Wang MD [address] [place] [address] PCP - General Family Medicine 06/21/13 Deodorizer Operator Relationship Specialty Start Date End Date Emily Wang MD [address] [place] [address] PCP - General Family Medicine 06/21/13 Deodorizer Operator Relationship Specialty Start Date End Date Emily Wang MD [address] [place] [address] PCP - General Family Medicine 06/21/13 Deodorizer Operator Relationship Specialty Start Date End Date Emily Wang MD [address] [place] [address] PCP - General Family Medicine 06/21/13 Deodorizer Operator Relationship Specialty Start Date End Date Emily Wang MD [address] [place] [address] PCP - General Family Medicine 06/21/13 Deodorizer Operator Relationship Specialty Start Date End Date Emily Wang MD [address] [place] [address] PCP - General Family Medicine 06/21/13 Deodorizer Operator Relationship Specialty Start Date End Date Emily Wang MD [address] [place] [address] PCP - General Family Medicine 06/21/13 [facility] [address] [place] [address] Pharmacist Pharmacy 07/02/21 04/06/23 Deodorizer Operator Relationship Specialty Start Date End Date Emily Wang MD [address] [place] [address] PCP - General Family Medicine 06/21/13 Deodorizer Operator Relationship Specialty Start Date End Date Emily Wang MD [address] [place] [address] PCP - General Family Medicine 06/21/13 Deodorizer Operator Relationship Specialty Start Date End Date Emily Wang MD [address] [place] [address] PCP - General Family Medicine 06/21/13 Deodorizer Operator Relationship Specialty Start Date End Date Emily Wang MD [address] [place] [address] PCP - General Family Medicine 06/21/13 Deodorizer Operator Relationship Specialty Start Date End Date Emily Wang MD [address] [place] [address] PCP - General Family Medicine 06/21/13 Deodorizer Operator Relationship Specialty Start Date End Date Emily Wang MD [address] [place] [address] PCP - General Family Medicine 06/21/13 Deodorizer Operator Relationship Specialty Start Date End Date Emily Wang MD [address] [place] [address] PCP - General Family Medicine 06/21/13 Deodorizer Operator Relationship Specialty Start Date End Date Emily Wang MD [address] [place] [address] PCP - General Family Medicine 06/21/13 Deodorizer Operator Relationship Specialty Start Date End Date Emily Wang MD [address] [place] [address] PCP - General Family Medicine 06/21/13 Aileen Quintanilla, CONTROLS ENGINEER.SHIPPING ORDER CLERK [address] [place] [address] Check Writer Family Medicine 02/13/24 Bahman Edmonds APRN.SHIPPING ORDER CLERK [address] [place] [address] Check Writer Family Medicine 02/22/24 Deodorizer Operator Relationship Specialty Start Date End Date Emily Wang MD [address] [place] [address] PCP - General Family Medicine 06/21/13 Aileen Quintanilla APRN.SHIPPING ORDER CLERK [address] [place] [address] Check Writer Family Medicine 02/13/24 Bahman Edmonds APRN.SHIPPING ORDER CLERK [address] [place] [address] Check Writer Family [facility] 02/22/24 Deodorizer Operator Relationship Specialty Start Date End Date Emily Wang MD [address] [place] [address] PCP - General Family Medicine 06/21/13 Aileen Quintanilla APRN.SHIPPING ORDER CLERK [address] [place] [address] Check Writer Family Medicine 02/13/24 Bahman Edmonds APRN.SHIPPING ORDER CLERK [address] [place] [address] Check Writer Family Medicine 02/22/24 Deodorizer Operator Relationship Specialty Start Date End Date Emily Wang MD [address] [place] [address] PCP - General Family Medicine 06/21/13 Aileen Quintanilla APRN.SHIPPING ORDER CLERK [address] [place] [address] Check Writer Family Medicine 02/13/24 Bahman Edmonds APRN.SHIPPING ORDER CLERK [address] [place] [address] Check Writer Family Medicine 02/22/24 Deodorizer Operator Relationship Specialty Start Date End Date Emily Wang MD [address] [place] [address] PCP - General Family Medicine 06/21/13 Aileen Quintanilla APRN.SHIPPING ORDER CLERK [address] [place] [address] Check Writer Family Medicine 02/13/24 Bahman Edmonds APRN.SHIPPING ORDER CLERK [address] [place] [address] [facility] Deodorizer Operator Relationship Specialty Start Date End Date Emily Wang MD [address] [place] [address] PCP - General Family Medicine 06/21/13 Aileen Quintanilla APRN.SHIPPING ORDER CLERK [address] [place] [address] Check Writer Family Medicine 02/13/24 Bahman Edmonds APRN.SHIPPING ORDER CLERK [address] [place] [address] Check Writer Family Medicine 02/22/24 Deodorizer Operator Relationship Specialty Start Date End Date Emily Wang MD [address] [place] [address] PCP - General Family Medicine 06/21/13 Aileen Quintanilla APRN.SHIPPING ORDER CLERK [address] [place] [address] Check Writer Family [facility] 02/13/24 Bahamn Edmonds APRN.SHIPPING ORDER CLERK [address] [place] [address] [facility] Deodorizer Operator Relationship Specialty Start Date End Date Emily Wang MD [address] [place] [address] PCP - General Family Medicine 06/21/13 Aileen Quintanilla APRN.SHIPPING ORDER CLERK [address] [place] [address] [facility]/24 Bahman Edmonds APRN.SHIPPING ORDER CLERK [address] [place] [address] [facility] 02/22/24 Deodorizer Operator Relationship Specialty Start Date End Date Emily Wang MD [address] [place] [address] PCP - General Family Medicine 06/21/13 Aileen Quintanilla APRN.SHIPPING ORDER CLERK [address] [place] [address] [facility]/24 Bahman Edmonds APRN.SHIPPING ORDER CLERK [address] [place] [address] [facility] Medicine 02/22/24 Deodorizer Operator Relationship Specialty Start Date End Date Emily Wang MD [address] [place] [address] PCP - General Family Medicine 06/21/13 Aileen Quintanilla APRN.SHIPPING ORDER CLERK [address] [place] [address] Check Writer Family Medicine 02/13/24 Bahman Edmonds APRN.SHIPPING ORDER CLERK [address] [place] [address] Check Writer Family Medicine 02/22/24 Deodorizer Operator Relationship Specialty Start Date End Date Emily Wang MD [address] [place] [address] PCP - General Family Medicine 06/21/13 Aileen Quintanilla APRN.SHIPPING ORDER CLERK [address] [place] [address] Check Writer Family Medicine 02/13/24 Bahman Edmonds APRN.SHIPPING ORDER CLERK [address] [place] [address] Check Writer Family Medicine 02/22/24 Deodorizer Operator Relationship Specialty Start Date End Date Emily Wang MD [address] [place] [address] PCP - General Family Medicine 06/21/13 Aileen Quintanilla APRN.SHIPPING ORDER CLERK [address] [place] [address] Check Writer Family Medicine 02/13/24 Bahman Edmonds CONTROLS ENGINEER.SHIPPING ORDER CLERK [address] [place] [address] Check Writer Family [facility] 02/22/24 Deodorizer Operator Relationship Specialty Start Date End Date Emily Wang MD [address] [place] [address] PCP - General Family Medicine 06/21/13 Aileen Quintanilla APRN.SHIPPING ORDER CLERK [address] [place] [address] Check Writer Family Medicine 02/13/24 Bahman Edmonds APRN.SHIPPING ORDER CLERK [address] [place] [address] Check Writer Family Medicine 02/22/24 Deodorizer Operator Relationship Specialty Start Date End Date Emily Wang MD [address] [place] [address] PCP - General Family Medicine 06/21/13 Aileen Quintanilla APRN.SHIPPING ORDER CLERK [address] [place] [address] Check Writer Family Medicine 02/13/24 Bahman Edmonds APRN.SHIPPING ORDER CLERK [address] [place] [address] Check Writer Family Medicine 02/22/24 Deodorizer Operator Relationship Specialty Start Date End Date Emily Wang MD [address] [place] [address] PCP - General Family Medicine 06/21/13 Aileen Quintanilla APRN.SHIPPING ORDER CLERK [address] [place] [address] Check Writer Family Medicine 02/13/24 Bahman Edmonds APRN.SHIPPING ORDER CLERK [address] [place] [address] Check Writer Family Medicine 02/22/24 Deodorizer Operator Relationship Specialty Start Date End Date Emily Wang MD [address] [place] [address] PCP - General Family Medicine 06/21/13 Aileen Quintanilla APRN.SHIPPING ORDER CLERK [address] [place] [address] Check Writer Family Medicine 02/13/24 Bahman Edmonds APRN.SHIPPING ORDER CLERK [address] [place] [address] Check Writer Family Medicine 02/22/24 Deodorizer Operator Relationship Specialty Start Date End Date Emily Wang MD [address] [place] [address] PCP - General Family Medicine 06/21/13 Bahman Edmonds APRN.SHIPPING ORDER CLERK [address] [place] [address] Check Writer Family Medicine 02/22/24 Deodorizer Operator Relationship Specialty Start Date End Date Emily Wang MD [address] [place] [address] PCP - General Family Medicine 06/21/13 Bahman Edmonds APRN.SHIPPING ORDER CLERK [address] [place] [address] Check Writer Family Medicine 02/22/24 Deodorizer Operator Relationship Specialty Start Date End Date Emily Wang MD [address] [place] [address] PCP - General Family Medicine 06/21/13 Bahman Edmonds CONTROLS ENGINEER.SHIPPING ORDER CLERK [address] [place] [address] Check Writer Family Medicine 02/22/24 Deodorizer Operator Relationship Specialty Start Date End Date Emily Wang MD [address] [place], [place] [address] PCP - General Family Medicine 06/21/13 Bahman Edmonds APRN.SHIPPING ORDER CLERK [address] [place], [place] [address] Check Writer Family [facility] 02/22/24 Scheduled Active and Recently Administ ered Medications (unrecognized section and content) Medication Order 02/09/2022 02/10/2022 02/11/2022 heparin 1,000 Units in D5W 250 mL 1,000 Units, INTRA-ARTERIAL, ONE TIME, 1 dose, Starting on Wed02/11/22 at 0915, Until Sravanthi 02/12/22 at 0304, NOW (EMERGENT PROCEDURE) FOR MARKETING ANALYTICS MANAGER USE ONLY, Intraprocedure heparin 3,000 Units in NaCl 0.9% 500 mL irrigation 3,000 Units, IRRIGATION, ONE TIME, 1 dose, Starting on Wed02/11/22 at 0915, Until Sravanthi 02/12/22 at 0304, NOW (EMERGENT PROCEDURE) FOR MARKETING ANALYTICS MANAGER USE ONLY For Irrigation Use Only, Intraprocedure PRN Medication Order 02/09/2022 02/10/2022 02/11/2022 fentaNYL 50 mcg/mL injection (SUBLIMAZE) INTRAVENOUS, X (OR/PROCEDURE) PRN, Starting on Wed02/11/22 at 1020, Until Sravanthi 02/12/22 at 0304, Intraprocedure 1020 (Given - Provid er: Marilyn Hernandez RN)1039 (Given - Provider: Marilyn Hernandez, RN) midazolam (PF) injection (VERSED) INTRAVENOUS, X (OR/PROCEDURE) PRN, Starting on Wed02/11/22 at 1019, Until Sravanthi 02/12/22 at 0304, Intraprocedure 1019 (Given - Provid er: Marilyn Hernandez RN)1039 (Given - Provider: Marilyn Hernandez, RN) FOR RECORDS PERTAINING TO PATIENTS WHO ARE OR HAVE BEEN ENROLLED IN A CHEMICAL DEPENDENCY/SUBSTANCEABUSE PROGRAM, SOME INFORMATION MAY BE OMITTED. This clinical summary was aggregated from multiple sources. Caution should be exercised in using it in the provision of clinical care. This summary normalizes information from multiple sources, and as a consequence, information in this document may materially change the coding, format and clinical context of patient data. In addition, data may be omitted in some cases. CLINICAL DECISIONS SHOULD BE BASED ON THE PRIMARY CLINICAL RECORDS. [employer] [facility]. provides no warranty or guarantee of the accuracy or completeness of information in this document.
== END 2024-09-25 22:29 | disposition left against medical advice (07) ==
LOC: ED 22:33
PROVIDERS: PCP Family Medicine
DX: M54.50 Low back pain, unspecified (principal)